=== PATIENT | male | born 1960 | race Caucasian/White ===

== ENCOUNTER → 2019-12-20 13:11 | Outpatient (BNVA) | payer MEDICAID, SELFPAY | PROVIDERS: Visit Provider Specialist | DX: M79.7 Fibromyalgia (principal); R29.90 Unspecified symptoms and signs involving the nervous system; M47.817 Spondylosis without myelopathy or radiculopathy, lumbosacral region | CPT/HCPCS: 20610; 99214; J1030; J3490 ==

== ENCOUNTER 2020-01-11 14:31 | Outpatient (CLI) | payer MEDICAID, SELFPAY ==
--- NOTE | 2020-01-11 16:00 | CT_ITS ---
WS: [id number] CT LUMBAR SPINE, noncontrast. HISTORY: back pain TECHNIQUE: Contiguous 2.5 mm axial imaging are performed. Sagittal and coronal reformats are submitte d and reviewed. All CT scans at [facility] use at least one of these dose optimization te chniques: automated exposure control; mA and/or kV adjustment per patient size (includes targeted exa ms where dose is matched to clinical indication); or iterative reconstruction. IV contrast: None DLP: 1914.08 mGycm COMPARISON: None available. Slight increase in lumbar lordosis. Endplate osteophytes throughout the lumbar spine. No pars defects . No fractures. Stable endplate sclerosis involving L1 and S1. L1-2: Normal. L2-3: Mild annular disc bulging without significant stenosis. L3-4: Diffuse annular disc bulging and facet arthropathy. Mild central and bilateral foraminal stenos is. L4-5: Mild annular disc bulging and facet arthropathy. Mild central and subarticular recess and miquel inal narrowing. L5-S1: Broad-based disc bulging without significant stenosis. Scattered calcifications within the abdominal aorta. No aneurysm. Mild bilateral sclerosis along the SI joints, RIGHT greater than LEFT. There is some very mild irregu larity along the sacral side of the RIGHT SI joint. No definite erosions. CT/CT lumbar spine wo con* [id number] IMPRESSION: 1. Multilevel mild spondylosis. No significant lumbar spine stenosis. 2. Mild central and bilateral foraminal stenosis at L3-4 and L4-5. 3. Mild bilateral sacroiliitis, RIGHT greater than LEFT.
== END 2020-01-11 14:32 | disposition home or self-care (01) ==
LOC: RADWPI 14:36
PROVIDERS: Visit Provider Specialist
DX: M47.817 Spondylosis without myelopathy or radiculopathy, lumbosacral region (principal); M47.896 Other spondylosis, lumbar region; M48.061 Spinal stenosis, lumbar region without neurogenic claudication; M46.1 Sacroiliitis, not elsewhere classified
CPT/HCPCS: 72131

== ENCOUNTER → 2020-01-19 10:24 | Outpatient (BNVA) | payer MEDICAID, SELFPAY | PROVIDERS: Visit Provider Nurse Practitioner | DX: F31.81 Bipolar II disorder (principal) | CPT/HCPCS: 99213 ==

== ENCOUNTER → 2020-01-26 11:55 | Outpatient (BNVA) | payer MEDICAID, SELFPAY | PROVIDERS: Visit Provider Nurse Practitioner Family | DX: E11.9 Type 2 diabetes mellitus without complications (principal); M25.511 Pain in right shoulder; M25.512 Pain in left shoulder; I10 Essential (primary) hypertension | CPT/HCPCS: 80053; 80061; 82044; 83036; 85025 ==

== ENCOUNTER → 2020-02-15 10:31 | Outpatient (BNVA) | payer MEDICAID, SELFPAY | PROVIDERS: Visit Provider Specialist | DX: M25.511 Pain in right shoulder (principal); M19.011 Primary osteoarthritis, right shoulder; M77.9 Enthesopathy, unspecified; Z87.81 Personal history of (healed) traumatic fracture | CPT/HCPCS: 73030 ==

== ENCOUNTER 2020-02-25 08:19 | Outpatient (CLI) | payer MEDICAID, SELFPAY ==
--- NOTE | 2020-02-25 08:50 | CT_ITS ---
WS: [id number] INDICATION: Right shoulder pain TECHNIQUE: CT shoulder arthrogram FINDINGS: Hypertrophic changes at the AC joint. Mild downsloping of the acromion. Subacromial spurrin g. Evidence of prior postoperative changes involving the distal clavicle. High-grade undersurface par tial-thickness tear involving the supraspinatus insertion measuring 9 mm on the sagittal imaging. Thi s is approximately 8 mm from the distal insertion. No tendon retraction. Infraspinatus is intact. Nor mal teres minor. Additional linear intrasubstance tear involving the distal subscapularis tendon. Nor mal biceps tendon in the bicipital groove. Glenoid labrum appears grossly intact. Sublabral recess. Normal biceps labral complex. Normal middle glenohumeral joint. Normal posterior labrum. Degenerative arthritis glenohumeral joint with evidence of prior Hill-Sachs deformity. Right lung is well aerated. CT/CT shoulder RT w con [id number] IMPRESSION: 1. Moderate degenerative arthritis at the AC joint with prior postoperative ch anges distal clavicle. Mild downsloping of the acromion with undersurface spurr ing. 2. High-grade undersurface tear involving the distal supraspinatus just proxim al to the insertion and measuring 9 mm. 3. Partial intrasubstance tear involving the distal subscapularis which remain s intact. 4. Normal biceps tendon in the bicipital groove. 5. Hill-Sachs deformity.
--- NOTE | 2020-02-25 08:55 | IR_ITS ---
WS: [id number] SHOULDER ARTHROGRAM RIGHT Fluoroscopic guided right shoulder arthrogram CLINICAL INFORMATION: SHOULDER PAIN/ROTATOR CUFF TEAR COMPARISON: None. PROCEDURE: The procedure including risks, benefits and complications were discussed with the patient, who agreed to proceed. Using sterile technique, the patient was prepped and draped in the usual ster ile fashion. After 1% lidocaine injection using fluoroscopic guidance, a 22-gauge spinal needle was a dvanced into the glenohumeral joint. Approximately 13 ml of a solution containing 10 cc Omnipaque 300 and 10 ml 1% lidocaine was administered. No immediate complications. FLUOROSCOPY TIME: 0.4 minutes. IR/IR arthrogram shoulderRT [id number] IMPRESSION: Uncomplicated fluoroscopic-guided right shoulder arthrogram. CT to follow
[2020-02-25] MEDS: iohexol 300 mg/mL 50 mL Btl INTRA-ARTI (09:35)
== END 2020-02-25 08:20 | disposition home or self-care (01) ==
LOC: RADWPI 08:24
PROVIDERS: Visit Provider Specialist
DX: M75.101 Unspecified rotator cuff tear or rupture of right shoulder, not specified as traumatic (principal); M25.511 Pain in right shoulder; M19.011 Primary osteoarthritis, right shoulder; M21.821 Other specified acquired deformities of right upper arm
CPT/HCPCS: 23350; 73201; 77002; Q9967

== ENCOUNTER 2020-03-29 15:30 | Observation (INO) | payer MEDICAID, SELFPAY ==
[2020-03-28 08:24] VITALS: BMI 43.2
[2020-03-29] VITALS (9 sets, daily range): BP systolic 133–160; BP diastolic 82–94; PULSE 62–87; RESP 17–23; TEMP 36.2–36.9; O2SAT 92–97
--- NOTE | 2020-03-29 | SC_ITS ---
NOTE: Report was unsigned for reason: Order was edited. Original Signature date and time was: [id number] WS: [id number] INTRAOPERATIVE TECHNIQUE: 2 Spot fluoroscopic images for intraoperative purposes. FLUOROSCOPY TIME: 43.9 seconds CLINICAL INFORMATION: LEAD EXCHANGE COMPARISON: None. FINDINGS: Intraoperative images for cardiac pacer lead exchange. MTD SC/C-arm FL for CVA [id number] IMPRESSION: Images obtained for intraoperative purposes.
--- NOTE | 2020-03-29 | SCC_ITS ---
Procedure Done: AICD lead replacement 43.9 seconds of fluoroscopic guidance, for a cumulative dose of 18.41 mGy, was provided to Dr. Alonzo by the radiology department. C-arm images of the chest were saved for the patient's permanent record. [facility]
--- NOTE | 2020-03-29 11:31 | ANES.PREANE2 ---
Pre-Anesthetic Assessment Pre-Anesthetic Assessment: Height/Weight: Height 1.65 m Weight 117.934 kg Preop Diagnosis: Pacemaker malfunction Proposed Procedure: Operation Date: 03/29/20 13:50 Proposed Procedures p Defibrillator Revision(Not Applicable) - Isaias Alonzo MD Familial anesthetic complications: None Was Beta Radha taken within 24 hours: N/A Last intake: NPO > 8 hrs Social: Social History: No alcohol and No tobacco Comment: former smoker Exam: Pre-Anes Outpt Exam: alert, oriented x 3, clear to auscultation bilaterally and regular rate & rhythm Airway: Cervical ROM: WNL MP: 4 Dentition: Full Additional comments: large neck and tongue CV/HEM: CV/HEM: HTN Comments: EF 24% on echo in 2016 with diffuse hypokinesis nonischemic cardiomyopathy ICD/pacer w/ RV lead dysfunction GI: GI: GERD Metabolic: Metabolic: DM, Hyperlipidemia and Morbid obesity Anesthetic Plan: ASA status: 4 Anesthesia: Nurse-admin mod sedation Risk of > 500 ml blood loss (7ml/kg in children): No PFSH Anesthesia PFSH: Medical History Bipolar II disorder Cardiomyopathy Diabetes Hypertension Mixed hyperlipidemia Pacemaker Pacemaker malfunction Family History Other CAD (coronary artery disease) Diabetes Hypertension Denies family history of Cancer Stroke Social History Smoking and tobacco status: former smoker Quit status (tobacco): has quit using tobacco Year quit tobacco: 1999 Alcohol intake: former Year of sobriety/quit date alcohol: 1997 Lives independently: Yes Household members: spouse Marital status: Current occupational status: disabled History of recent travel: No Current gender identity: Male Special fernando needs: No Agree to transfusion: Yes Data Anesthesia CBC & Chem 7: 03/29/20 12:46 03/29/20 12:46 Cardiac Studies: No Data to Display
--- NOTE | 2020-03-29 12:35 | W.PM.OPSUD ---
Surgery/Procedure H&P Update DATE OF PROCEDURE: March 29, 2020 DATE H&P PERFORMED: 03/21/20 H&P UPDATE INFORMATION: I have reviewed H&P completed within last 30 days, I have examined patient prior to procedure and No changes to prior documentation CHANGES TO PREVIOUS DOCUMENTATION: I carefully discussed with Mr. Alexander the recommendation to place a new right ventricular lead and it Is only. Risk of lead replacement carefully discussed including pneumothorax, major bleeding, cardiac or major vessel perforation, injury to the other leads, infection, early dislodgment of the lead, need for long-term follow-up, and pain from the procedure. He states understanding. The recommendation to remain overnight as outpatient in a bed to allow for social media campaign manager interrogation of the lead was carefully discussed. At this time, he is not certain he will stay overnight. He does wish to proceed however with lead replacement. PREOP DIAGNOSIS: Malfunctioning ventricular lead implantable cardiac defibrillator PRIMARY INDICATION FOR PROCEDURE: Replacement of malfunctioning lead PLANNED PROCEDURE: Operation Date: 03/29/20 13:50 Proposed Procedures p Defibrillator Revision(Not Applicable) - Isaias Alonzo MD
--- NOTE | 2020-03-29 12:36 | ECG_ITS ---
Measurements Intervals [place] Rate: 61 P: 44 MN: 144 QRS: 167 QRSD: 158 T: -5 QT: 442 QTc: 446 ELECTRONIC VENTRICULAR PACEMAKER ABNORMAL RHYTHM ECG Compared to ECG 03/01/2019 13:19:47 No significant changes Electronically Signed On 03-29-2020 15:43:53 CDT by Joaquin Nayak M.D. [id number]
[2020-03-29 12:57] LABS: Basophils % 0.4 %; Eosinophils # 0.2 10^3/uL (0.0-0.8); Eosinophils % 1.8 %; Hematocrit 40.1 % (42.0-52.0); Hemoglobin 13.8 g/dL (11.7-16.6); Lymphocytes # 2.2 10^3/uL (0.8-4.8); Lymphocytes % 26.2 %; Mean Corpuscular HGB Conc 34.4 g/dL (30.0-36.0); Mean Corpuscular Hemoglobin 31.5 pg (28.0-34.0); Mean Corpuscular Volume 91.6 fL (80-94); Mean Platelet Volume 10.6 fL (7.4-10.4); Monocytes # 0.5 10^3/uL (0.2-0.9); Monocytes % 6.2 %; Neutrophils # 5.5 10^3/uL (1.8-7.7); Neutrophils % 64.9 %; Nucleated Red Blood Cells % 0 %; Platelet Count 208 10^3/cmm (130-400); Red Blood Count 4.38 10^6/uL (4.1-5.3); White Blood Count 8.5 10^3/uL (4.0-10.0)
[2020-03-29 13:07] LABS: INR 0.99 (0.8-1.2)
[2020-03-29 13:13] LABS: Anion Gap 15.4 (5-19); Blood Urea Nitrogen 13 mg/dL (6-20); Calcium 8.9 mg/dL (8.5-10.5); Carbon Dioxide 24 mmol/L (22-29); Chloride 104 mmol/L (98-107); Glomerular Filtration Rate 98.9 mL/min (90-130); Glucose 140 mg/dL (65-115); Osmolality Calculated 286 mOsm/kg (285-295); Potassium 4.4 mmol/L (3.5-5.1); Sodium 139 mmol/L (136-145)
[2020-03-29] MEDS: vancomycin 1,000 MG in sodium chloride 0.9% 250 ML 250 MG IV (13:30)
[2020-03-29] MEDS: lidocaine 1% INJ 20 mL INJECTION (13:50)
[2020-03-29 14:03] LABS: Glucose Point of Care 128 mg/dL (70-110)
--- NOTE | 2020-03-29 15:01 | PM.OP ---
Operative Report Date of procedure: March 29, 2020 Pre-op Diagnosis: Pacemaker malfunction Post-op diagnosis: same Procedure Done: AICD lead replacement Pathology: none sent Surgeon: Isaias Alonzo Anesthesia: MAC and Local (10 cc 1% lidocaine) Estimated blood loss (mL): 25 Complications: None: Post procedure chest x-ray pending Condition: stable Disposition: floor (Outpatient in a bed) Brief History: Mr. Alexander is a 59-year-old gentleman with longstanding cardiomyopathy and prior AICD implantation in 2006. He has had his generator changed at least once and has a recalled lead which has now failed. This is the RV lead. Dr. Holder has recommended that this lead to be replaced. Details risk procedure were carefully and frankly discussed Mr. Alexander. Appropriate consents have been reviewed and signed. Procedure: Mr. Wilkins was taken operating room underwent IV conscious sedation anesthesia monitoring after he was carefully positioned over protective padding. His entire left chest was sterilely prepped and draped. After appropriate timeout, 1% lidocaine was infiltrated through an old surgical scar at the superior border of the palpable AICD generator. #10 scalpel is utilized to incise the skin down to the subtendinous layer with #15 scalpel blade was utilized to continue on down toward the pseudo-pocket. This was carefully dissected free utilizing Metzenbaum scissors to avoid any path of prior leads. #15 scalpel blade was utilized to open up the pseudo-capsule thereby exposing the generator associated leads which was then recovered from the pocket. Short resection Metzenbaum scissors were performed to release adhesions around the generator head to help free up provide some motion to the attached leads. Once this was done, while in Trendelenburg position utilizing modified Seldinger technique, access to the left subclavian vein was obtained and a guidewire was placed under fluoroscopic guidance. Tract was then dilated and subsequently a tear-away sheath was also placed over the guidewire under fluoroscopic guidance. Next, the new RV lead was advanced through the tear-away sheath with a curved stylette in position and utilizing fluoroscopy was placed into the RV. Associated PVCs were noted. Securing screw was advanced. Interrogation was then performed with and without the stylette in position that revealed good sensing and capture thresholds. Next, the lead was sewn to the floor of the pocket utilizing silk suture over the retention collar. Following this, the associated leads were removed and pin caps placed. Active bleeding ends were covered with securing caps. The new lead was then placed to the appropriate positions and second set screws advanced securing it to the AICD. With all this, the wound was irrigated. The generator associated leads were placed back into the pocket of the pseudocapsule. A bit of undermining was performed superiorly to allow for tension-free closure. Wound was then closed in 2 layers of 2-0 Vicryl suture. Skin was reapproximated with 3-0 Monocryl suture in a septic or manner. Skin adhesive was applied followed by placement of a light pressure dressing. Patient's left arm was placed in an immobilizer. Reinterrogation after the system was implanted was then performed. Mr. Alexander tolerated procedure well was awakened from IV conscious sedation and taken to the outpatient surgery department awaiting availability of a floor bed for observation overnight as outpatient in a bed status. Family was counseled. Chest x-ray is currently pending. There are equal breath sounds bilaterally. Right atrial lead sensing is 1.9 with an impedance of 399 ohms and a threshold of 0.5. RV lead has a sensing of 10.8 with an impedance of 418 ohms and a threshold of 0.5. LV lead has an impedance of 418 ohms with a threshold of 0.75
--- NOTE | 2020-03-29 15:17 | SUR.PHASEI ---
1512 PATIENT TO PACU FROM OR. NO DISTRESS. RESPONDS TO VERBAL STIMULI. PRESSURE DRESSING IN PLACE TO LEFT CHEST, LEFT ARM SLING IN PLACE. PATIENT DENIES PAIN.
--- NOTE | 2020-03-29 15:26 | XR_ITS ---
WS: [id number] CHEST XRAY TECHNIQUE: Portable chest. CLINICAL INFORMATION: POST DEF LEAD EXCHANGE COMPARISON: None. FINDINGS: Heart: Cardiomegaly. Cardiac pacer with lead exchange. Lungs: Chronic emphysematous changes. No acute pulmonary infiltrates. No pneumothorax. Bones: Mild thoracic curve. Hypertrophic changes thoracic spine. XR/XR chest 1V portable [id number] IMPRESSION: Cardiomegaly. No acute chest findings.
--- NOTE | 2020-03-29 15:37 | SUR.PHASEI ---
1530 PATIENT TO CSU VIA GURNEY. DENIES PAIN. DRESSING TO LEFT CHEST, CDI. SHOULDER IMMOBILIZER IN PLACE. PATIENT AMBULATORY FROM GURNEY TO BED WHEN ARRIVING TO CSU.
[2020-03-29 17:32] LABS: Glucose Point of Care 224 mg/dL (70-110)
[2020-03-29] MEDS: sodium chloride 0.9% 1,000 ML 75 ML IV (17:50)
[2020-03-29] MEDS: oxyCODONE-APAP 5-325 mg Tablet 1 TAB PO (18:57)
[2020-03-29] MEDS: clindamycin 900 MG/50 ML PREMIX 100 MG IV (21:36)
[2020-03-30] VITALS (8 sets, daily range): BP systolic 145–160; BP diastolic 79–92; PULSE 60–89; RESP 15–17; TEMP 36.5–36.8; O2SAT 94–98
[2020-03-30] MEDS: oxyCODONE-APAP 5-325 mg Tablet 1 TAB PO (04:38)
[2020-03-30] MEDS: sodium chloride 0.9% 1,000 ML 75 ML IV (04:39)
[2020-03-30] MEDS: clindamycin 900 MG/50 ML PREMIX 100 MG IV (04:39)
--- NOTE | 2020-03-30 05:30 | PC.NURSE ---
Rounded with Dr. Smith. Watched him changed pacemaker dressing.
--- NOTE | 2020-03-30 05:41 | P.DS_ITS ---
Discharge Providers Date of Admission: 03/29/20 15:30 Date of Discharge: March 30, 2020 Attending Provider at Admission: Isaias Alonzo MD Attending Provider at Discharge: Isaias Alonzo MD Primary Care Provider: ANDRES Pettit Diagnoses at Discharge Discharge Diagnosis (1) Pacemaker malfunction: Status: Acute Qualifiers: Encounter type: initial encounter Qualified Code(s): T82.111A - Breakdown (mechanical) of cardiac pulse generator (battery), initial encounter Reason for Visit Reason for Visit: Reason For Visit: Cardiomyopathy Hospital Course Discharge Summary: Mr. Alexander was electively admitted for planned replacement of his malfunctioning RV lead from his AICD. He underwent lead replacement yesterday March 29 without apparent difficulties. Post procedure system interrogation revealed good function. He convalesced overnight in the cardiac stepdown unit where he received parenteral antibiotics. Incision is clean and dry this morning. No substantial swelling. AICD will be again interrogated prior to discharge. Post procedure chest x-ray this morning is clear. No apparent lead migration. He will follow-up in heart care services in 1 week. At the time of discharge he is in stable condition. Physical Exam Chest: COMMONS NORMALS: normal inspection of the chest (Surgical incision is clean and dry. No evidence for substantial fluid collection. No evidence for infection.) Resp: COMMON NORMALS: normal respiratory effort and clear to auscultation bilaterally AUSCULTATION: clear to auscultation bilaterally Discharge Data Data Completed and Pending: Completed Studies During Hospitalization Category Date Time Status XR chest 1V rudolph ble [id number] Routine Exams 03/29/20 15:26 Completed Pending at discharge Category Date Time Status XR chest 1V [id number] Routine Exams 03/30/20 06:00 Taken Labs from last 24 hours 03/29/20 03/29/20 03/29/20 17:26 12:47 12:46 WBC RBC Hgb Hct MCV MCH MCHC RDW Plt Count MPV Neut % (Auto) Lymph % (Auto) [place] % (Auto) Eos % (Auto) Baso % (Auto) Neut # (Auto) Lymph # (Auto) [place] # (Auto) Eos # (Auto) Baso # (Auto) Nucleated RBC % (a uto) Nucleated RBCs # PT INR Sodium Potassium Chloride Carbon Dioxide Anion Gap BUN Creatinine GFR Calculation Glucose POC Glucose 224 128 Calculated Osmolal ity Calcium Blood Type B Positive Rho(D) Type Positive Antibody Screen Negative 03/29/20 03/29/20 03/29/20 12:46 12:46 12:44 WBC 8.5 RBC 4.38 Hgb 13.8 Hct 40.1 L MCV 91.6 MCH 31.5 MCHC 34.4 RDW 13.0 Plt Count 208 MPV 10.6 H Neut % (Auto) 64.9 Lymph % (Auto) 26.2 [place] % (Auto) 6.2 Eos % (Auto) 1.8 Baso % (Auto) 0.4 Neut # (Auto) 5.5 Lymph # (Auto) 2.2 [place] # (Auto) 0.5 Eos # (Auto) 0.2 Baso # (Auto) 0.0 Nucleated RBC % (a uto) 0 Nucleated RBCs # 0.0 PT 13.30 INR 0.99 Sodium 139 Potassium 4.4 Chloride 104 Carbon Dioxide 24 Anion Gap 15.4 BUN 13 Creatinine 0.8 GFR Calculation 98.9 Glucose 140 H POC Glucose Calculated Osmolal ity 286 Calcium 8.9 Blood Type Rho(D) Type Antibody Screen Vitals: Last Vital Signs Temp 98.2 F 03/30/20 04:46 Pulse 63 03/30/20 04:46 Resp 17 03/30/20 04:46 BP 149/82 03/30/20 04:46 Pulse Ox 94 03/30/20 04:46 Discharge Plan Discharge Patient Disposition: Home, Self-Care Condition: Stable Prescriptions: New [place]ora 5-325 mg tablet 1 tab PO Q6H PRN (Reason: pain) Qty: 12 RF: 0 Continued omeprazole 40 mg capsule,delayed release(DR/EC) 40 mg PO DAILY RF: 0 rosuvastatin [Crestor] 20 mg tablet 20 mg PO DAILY RF: 0 Invokana 300 mg tablet 300 mg PO DAILY RF: 0 aspirin [Aspir-Sagrario] 325 mg tablet,delayed release (DR/EC) 325 mg PO DAILY RF: 0 multivitamin Capsule 1 cap PO DAILY RF: 0 lamotrigine 200 mg tablet 200 mg PO DAILY Qty: 30 RF: 2 sertraline 100 mg tablet 150 mg PO DAILY Qty: 45 RF: 2 clonazepam 0.5 mg tablet 0.5 mg PO DAILY PRN (Reason: anxiety) Qty: 30 RF: 2 albuterol sulfate [ProAir HFA] 90 mcg/actuation HFA aerosol inhaler 2 puff INHALATION Q6H PRN (Reason: shortness of breath or wheezing) Qty: 18 RF: 2 fluticasone propionate [Flonase Allergy Relief] 50 mcg/actuation spray,suspension 2 spray INTRANASAL DAILY Qty: 9.9 RF: 2 Zyrtec 10 mg capsule 10 mg PO DAILY Qty: 30 RF: 5 glipizide 5 mg tablet extended release 24hr 5 mg PO DAILY Qty: 30 RF: 2 fenofibrate 160 mg tablet 160 mg PO DAILY Qty: 30 RF: 2 allopurinol 300 mg tablet 300 mg PO DAILY Qty: 90 RF: 12 carvedilol 25 mg tablet 25 mg PO BID Qty: 180 RF: 3 metformin 500 mg tablet 1,000 mg PO BID Qty: 120 RF: 0 losartan 100 mg tablet 100 mg PO DAILY Qty: 90 RF: 3 spironolactone 25 mg tablet 25 mg PO DAILY Qty: 90 RF: 3 potassium citrate 10 mEq (1,080 mg) tablet extended release 20 meq PO BID RF: 0 ibuprofen 800 mg tablet 800 mg PO BID PRN (Reason: Pain) RF: 0 Discharge Orders: Discharge Order (Routine); Ordered 03/30/20 Ordered By: Isaias Alonzo Referrals: [facility] [Provider Group] - 04/07/20 (Pacemaker clinic) Discharge Diet: Usual diet Discharge Activity: Limit activity as instructed Activity Restrictions/Additional Instructions: No swimming or tub baths x2 weeks May begin daily showers on Friday No reaching above eye level with left arm for 1 week No heavy pulling or tugging or pushing with left arm x2 weeks Report any redness, swelling, increasing pain, or drainage from incision Discharge Attestations Time Spent in Discharge Care*: less than 30 min Specific Discharge Activities: Specific discharge activities: educating patient, discussing with case resolution specialist/social workers/dc planners, documenting/other paperwork and evaluating patient/reviewing data Status at Discharge: Cognitive status at discharge: cognitively intact , Behavioral status at discharge: cooperative , Functional status at discharge: independent ambulation Overall status at discharge: patient is back to baseline Quality Metrics Clinical Quality Measures During this hospital stay, did patient experience: None Coding Level of Care Code [facility] [employer] 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
--- NOTE | 2020-03-30 06:00 | ECG_ITS ---
Measurements Intervals [place] Rate: 64 P: 52 NH: 154 QRS: 148 QRSD: 157 T: -60 QT: 452 QTc: 467 ELECTRONIC VENTRICULAR PACEMAKER ABNORMAL RHYTHM ECG Compared to ECG 03/29/2020 12:55:03 No significant changes Electronically Signed On 03-31-2020 18:42:15 CDT by Felicity Haro M.D. [email or web address]
--- NOTE | 2020-03-30 06:00 | XR_ITS ---
WS: [id number] CHEST XRAY TECHNIQUE: Portable chest. CLINICAL INFORMATION: Post permanent pacemaker placement; visualize lead tip COMPARISON: March 29, 2020 FINDINGS: Heart: Cardiomegaly. AICD. Lungs: Chronic emphysematous changes. No acute pulmonary infiltrates. No focal pneumonia. Bones: Normal visualized bony structures. XR/XR chest 1V [id number] IMPRESSION: 1. Cardiomegaly with AICD. No pneumothorax. 2. No acute pulmonary infiltrates.
[2020-03-30] MEDS: losartan 50 mg Tablet 100 MG PO (08:26)
[2020-03-30] MEDS: allopurinol 300 mg Tablet PO (08:27)
[2020-03-30] MEDS: metformin 500 mg Tablet 1000 MG PO (08:27)
[2020-03-30] MEDS: spironolactone 25 mg Tablet PO (08:27)
[2020-03-30] MEDS: carvedilol 25 mg Tablet PO (08:27)
[2020-03-30] MEDS: sertraline 100 mg Tablet 150 MG PO (08:27)
== END 2020-03-30 08:59 | disposition home or self-care (01) ==
LOC: CSU 03-30 05:40 → OR 03-30 07:40
PROVIDERS: Anesthesiology; Admitting Provider Thoracic Surgery (Cardiothoracic Vascular Surgery); PCP Nurse Practitioner Family; Visit Provider Thoracic Surgery (Cardiothoracic Vascular Surgery)
PROC: 0JWT0PZ Revision of Cardiac Rhythm Related Device in Trunk Subcutaneous Tissue and Fascia, Open Approach (ICD-10-PCS; CPT 33263; principal; 2020-03-29 13:50)
DX: T82.111A Breakdown (mechanical) of cardiac pulse generator (battery), initial encounter (principal); Z79.82 Long term (current) use of aspirin; I10 Essential (primary) hypertension; E11.9 Type 2 diabetes mellitus without complications; Z79.84 Long term (current) use of oral hypoglycemic drugs; E66.01 Morbid (severe) obesity due to excess calories; Z68.41 Body mass index [BMI] 40.0-44.9, adult; E78.2 Mixed hyperlipidemia
CPT/HCPCS: 33263; 12345; 36415; 36416; 71045; 76000; 77001; 80048; 82962; 85025; 85610; 86850; 86900; 93005; 94660; 96361; 96365; 96366; C1777; G0378; J2001; J2250; J2704; J3010; J3370; J3490; J7030; J7050

== ENCOUNTER → 2020-04-12 07:49 | Outpatient (BNVA) | payer MEDICAID, SELFPAY | PROVIDERS: PCP Nurse Practitioner Family; Visit Provider Nurse Practitioner | DX: F31.81 Bipolar II disorder (principal) | CPT/HCPCS: 99213 ==

== ENCOUNTER → 2020-04-18 14:28 | Outpatient (BNVA) | payer MEDICAID, SELFPAY | PROVIDERS: PCP Nurse Practitioner Family; Visit Provider Nurse Practitioner Family | DX: Z95.0 Presence of cardiac pacemaker (principal); T81.49XA Infection following a procedure, other surgical site, initial encounter; X58.XXXA Exposure to other specified factors, initial encounter | CPT/HCPCS: 36415; 85025; 87040 ==

== ENCOUNTER 2020-04-22 17:14 | Emergency (ER) | payer MEDICAID, SELFPAY ==
[2020-04-22 17:22] VITALS: BP 149/75; PULSE 83; RESP 18; TEMP 35.9; O2SAT 95; BMI 43.2
--- NOTE | 2020-04-22 17:35 | ECG_ITS ---
Measurements Intervals [place] Rate: 77 P: 54 MT: 159 QRS: 126 QRSD: 146 T: -16 QT: 397 QTc: 450 ELECTRONIC VENTRICULAR PACEMAKER ABNORMAL RHYTHM ECG Compared to ECG 03/30/2020 06:20:20 No significant changes Electronically Signed On 04-23-2020 21:08:29 CDT by Joe Holder M.D. [id number]
--- NOTE | 2020-04-22 17:36 | W.ED.GENADLT ---
Documented by User: Andre Olvera DO 04/28/20 17:43 HPI - General Adult General: Chief complaint: General Medical Stated complaint: pace maker firing Time Seen by Provider: 04/22/20 17:27 History of Present Illness: HPI narrative: 59-year-old male comes in today complaining of his pacer alarming every 4 hours. He is an ICD. Is not discharge at all. 3 weeks ago he had a loose alleviator repaired by Dr. Alonzo he developed a little swelling afterwards Dr. Alonzo seen recently drained some fluid off and put him on some antibiotics. This morning at 3 AM began to be up every 4 hours he denies any chest pain or shortness of breath fever sweats or chills. Onset (ago): hour(s) (15) Relieving factors: none Exacerbating factors: none Associated symptoms: Deny chest pain, dyspnea, malaise, nausea, rash or vomiting Review of Systems Const: Denies: fever(s), chills, body aches, change in appetite, fatigue or malaise ENMT: Denies: throat pain, ear or mastoid pain, nasal discharge or nasal congestion Card: Denies: chest pain, edema, dyspnea on exertion or orthopnea Resp: Denies: dyspnea, productive cough or non-productive cough GI: Denies: abdominal pain, nausea, vomiting, hematemesis, coffee ground emesis, diarrhea, constipation, bloating, hematochezia or melena : Denies: flank pain, dysuria, urinary frequency or urinary urgency Skin/Breast: Denies: rash or pruritus PFSH ED PFSH: Medical History Bipolar II disorder Cardiomyopathy Diabetes Hypertension Mixed hyperlipidemia Pacemaker Pacemaker malfunction Family History Other CAD (coronary artery disease) Diabetes Hypertension Denies family history of Cancer Stroke Social History Smoking and tobacco status: former smoker Quit status (tobacco): has quit using tobacco Year quit tobacco: 1999 Alcohol intake: former Year of sobriety/quit date alcohol: 1997 Lives independently: Yes Household members: spouse Marital status: Current occupational status: disabled History of recent travel: No Current gender identity: Male Special fernando needs: No Agree to transfusion: Yes Physical Exam Const: COMMON NORMALS: no acute distress GENERAL APPEARANCE: cooperative and comfortable ORIENTATION/CONSCIOUSNESS: Yes awake, Yes oriented to person, Yes oriented to place and Yes oriented to time HENMT: COMMON NORMALS: normocephalic, atraumatic, hearing grossly normal bilaterally, external ears normal, EAC's normal, TM's normal bilaterally, Normal nasal mucous membranes and turbinates present, moist oral mucous membranes and oropharynx normal HEAD & SCALP: normocephalic and atraumatic NOSE: Normal nasal mucous membranes and turbinates present EXTERNAL EAR: Yes external ears normal EXTERNAL AUDITORY CANAL: EAC's normal TYMPANIC MEMBRANE: TM's normal bilaterally Eye: COMMON NORMALS: Equal, round and reactive pupils present, EOMs intact bilaterally, conjunctivae normal and no scleral icterus CONJUNCTIVA: Yes conjunctivae normal PUPIL: Yes Equal, round and reactive pupils present Neck/C-Spine: COMMON NORMALS: full ROM, no lymphadenopathy, supple and no JVD Lymph: LYMPHATIC: no lymphadenopathy noted and no lymphedema noted Chest: OTHER: Fluctuant swelling over the pacer in the left infraclavicular space mildly warm to the touch no drainage Resp: COMMON NORMALS: normal respiratory effort, No retractions, No use of accessory muscles and clear to auscultation bilaterally AUSCULTATION: clear to auscultation bilaterally Cardio: COMMON NORMALS: no JVD, regular rate, regular rhythm and No murmurs present (Cardio) RATE: regular rate RHYTHM: regular rhythm GI: COMMON NORMALS: Soft to palpation and No hepatosplenomegaly present AUSCULTATION: Yes normoactive bowel sounds PALPATION: Yes Soft to palpation, No Tenderness to palpation present (GI), No Guarding due to palpation present (GI) and Yes No hepatosplenomegaly present Extremity: COMMON NORMALS: normal to inspection, capillary refill normal, no clubbing, cyanosis or edema, no calf tenderness and no pedal edema Neuro: SENSORIUM/ORIENTATION: Yes oriented to person, Yes oriented to place and Yes oriented to time Skin: COMMON NORMALS: no rashes or lesions noted GENERAL SKIN EXAM: no rashes or lesions noted Course Vital Signs: Vital signs: Vital Signs Temperature 96.6 F L 04/22/20 17:22 Pulse Rate 70 04/22/20 18:27 Respiratory Rate 16 04/22/20 18:27 Blood Pressure 125/75 04/22/20 18:27 Pulse Oximetry 96 04/22/20 18:27 MDM - General Adult MDM Narrative: Medical decision making narrative: Care turned over to Dr. Staley at change of shift see his note for definitive diagnosis and disposition Discharge Plan Discharge Patient Disposition: Home, Self-Care Clinical Impression: Pacemaker Condition: Stable Prescriptions: No Action omeprazole 40 mg capsule,delayed release(DR/EC) 40 mg PO DAILY RF: 0 Invokana 300 mg tablet 300 mg PO DAILY RF: 0 aspirin [Aspir-Sagrario] 325 mg tablet,delayed release (DR/EC) 325 mg PO DAILY RF: 0 multivitamin Capsule 1 cap PO DAILY RF: 0 clonazepam 0.5 mg tablet 0.5 mg PO DAILY PRN (Reason: anxiety) Qty: 30 RF: 2 sertraline 100 mg tablet 150 mg PO DAILY Qty: 45 RF: 2 lamotrigine 200 mg tablet 200 mg PO DAILY Qty: 30 RF: 2 sulfamethoxazole-trimethoprim [Bactrim DS] 800-160 mg tablet 1 tab PO BID 10 Days Qty: 20 RF: 0 levofloxacin [Levaquin] 500 mg tablet 500 mg PO DAILY Qty: 10 RF: 0 metformin 1,000 mg tablet 1,000 mg PO BID Qty: 60 RF: 3 rosuvastatin [Crestor] 20 mg tablet 20 mg PO DAILY Qty: 30 RF: 3 albuterol sulfate [ProAir HFA] 90 mcg/actuation HFA aerosol inhaler 2 puff INHALATION Q6H PRN (Reason: shortness of breath or wheezing) Qty: 18 RF: 2 fluticasone propionate [Flonase Allergy Relief] 50 mcg/actuation spray,suspension 2 spray INTRANASAL DAILY Qty: 9.9 RF: 2 furosemide [Lasix] 20 mg tablet 20 mg PO DAILY Qty: 30 RF: 1 Zyrtec 10 mg capsule 10 mg PO DAILY Qty: 30 RF: 5 glipizide 5 mg tablet extended release 24hr 5 mg PO DAILY Qty: 30 RF: 2 fenofibrate 160 mg tablet 160 mg PO DAILY Qty: 30 RF: 2 allopurinol 300 mg tablet 300 mg PO DAILY Qty: 90 RF: 12 carvedilol 25 mg tablet 25 mg PO BID Qty: 180 RF: 3 losartan 100 mg tablet 100 mg PO DAILY Qty: 90 RF: 3 spironolactone 25 mg tablet 25 mg PO DAILY Qty: 90 RF: 3 potassium citrate 10 mEq (1,080 mg) tablet extended release 20 meq PO BID RF: 0 ibuprofen 800 mg tablet 800 mg PO BID PRN (Reason: Pain) RF: 0 Crescent 5-325 mg tablet 1 tab PO Q6H PRN (Reason: pain) Qty: 12 RF: 0 Discharge Orders: Discharge Order (Routine); Ordered 04/22/20 Ordered By: Andrei Staley Referrals: Lucrecia Blandon FNP [Primary Care Provider] - Discharge Diet: Usual diet Discharge Activity: Increase activity as tolerated Patient Instructions: Pacemaker (GEN) Activity Restrictions/Additional Instructions: Your pacemaker device was alarming because it is not connecting appropriately with your home device. When you get home and near your device, call . The company will walk you through how to rectify the alarm with your home machine. Discharge Date/Time: 04/22/20 18:27 Coding Level of Care Code ED Irrigator Sprinkling System for Chg Fwd Exam Comprehensive Documented by User: Andrei Staley DO 04/23/20 03:11 HPI - General Adult General: Chief complaint: General Medical Stated complaint: pace maker firing Time Seen by Provider: 04/22/20 17:27 PFSH ED PFSH: Medical History Bipolar II disorder Cardiomyopathy Diabetes Hypertension Mixed hyperlipidemia Pacemaker Pacemaker malfunction Family History Other CAD (coronary artery disease) Diabetes Hypertension Denies family history of Cancer Stroke Social History Smoking and tobacco status: former smoker Quit status (tobacco): has quit using tobacco Year quit tobacco: 1999 Alcohol intake: former Year of sobriety/quit date alcohol: 1997 Lives independently: Yes Household members: spouse Marital status: Current occupational status: disabled History of recent travel: No Current gender identity: Male Special fernando needs: No Agree to transfusion: Yes Course Vital Signs: Vital signs: Vital Signs Temperature 96.6 F L 04/22/20 17:22 Pulse Rate 70 04/22/20 18:27 Respiratory Rate 16 04/22/20 18:27 Blood Pressure 125/75 04/22/20 18:27 Pulse Oximetry 96 04/22/20 18:27 MDM - General Adult MDM Narrative: Medical decision making narrative: 59-year-old male checked out to me by Dr. Olvera. He has been having an audible alarm in his pacemaker. Pacemaker was interrogated. The alarm is a false 1. We spoke with the company has to do with the lead wire that was changed. The patient was evidently not close enough to his home machine so it is basically a proximity alarm. The service gave the patient a phone number to call when he gets home and near his machine to rectify the situation. Nothing else to be done. EKGs show appropriate pacer firing Discharge Plan Discharge Patient Disposition: Home, Self-Care Clinical Impression: Pacemaker Condition: Stable Prescriptions: No Action omeprazole 40 mg capsule,delayed release(DR/EC) 40 mg PO DAILY RF: 0 Invokana 300 mg tablet 300 mg PO DAILY RF: 0 aspirin [Aspir-Sagrario] 325 mg tablet,delayed release (DR/EC) 325 mg PO DAILY RF: 0 multivitamin Capsule 1 cap PO DAILY RF: 0 clonazepam 0.5 mg tablet 0.5 mg PO DAILY PRN (Reason: anxiety) Qty: 30 RF: 2 sertraline 100 mg tablet 150 mg PO DAILY Qty: 45 RF: 2 lamotrigine 200 mg tablet 200 mg PO DAILY Qty: 30 RF: 2 sulfamethoxazole-trimethoprim [Bactrim DS] 800-160 mg tablet 1 tab PO BID 10 Days Qty: 20 RF: 0 levofloxacin [Levaquin] 500 mg tablet 500 mg PO DAILY Qty: 10 RF: 0 metformin 1,000 mg tablet 1,000 mg PO BID Qty: 60 RF: 3 rosuvastatin [Crestor] 20 mg tablet 20 mg PO DAILY Qty: 30 RF: 3 albuterol sulfate [ProAir HFA] 90 mcg/actuation HFA aerosol inhaler 2 puff INHALATION Q6H PRN (Reason: shortness of breath or wheezing) Qty: 18 RF: 2 fluticasone propionate [Flonase Allergy Relief] 50 mcg/actuation spray,suspension 2 spray INTRANASAL DAILY Qty: 9.9 RF: 2 furosemide [Lasix] 20 mg tablet 20 mg PO DAILY Qty: 30 RF: 1 Zyrtec 10 mg capsule 10 mg PO DAILY Qty: 30 RF: 5 glipizide 5 mg tablet extended release 24hr 5 mg PO DAILY Qty: 30 RF: 2 fenofibrate 160 mg tablet 160 mg PO DAILY Qty: 30 RF: 2 allopurinol 300 mg tablet 300 mg PO DAILY Qty: 90 RF: 12 carvedilol 25 mg tablet 25 mg PO BID Qty: 180 RF: 3 losartan 100 mg tablet 100 mg PO DAILY Qty: 90 RF: 3 spironolactone 25 mg tablet 25 mg PO DAILY Qty: 90 RF: 3 potassium citrate 10 mEq (1,080 mg) tablet extended release 20 meq PO BID RF: 0 ibuprofen 800 mg tablet 800 mg PO BID PRN (Reason: Pain) RF: 0 Crescent 5-325 mg tablet 1 tab PO Q6H PRN (Reason: pain) Qty: 12 RF: 0 Discharge Orders: Discharge Order (Routine); Ordered 04/22/20 Ordered By: Andrei Staley Referrals: Lucrecia Blandon FNP [Primary Care Provider] - Discharge Diet: Usual diet Discharge Activity: Increase activity as tolerated Patient Instructions: Pacemaker (GEN) Activity Restrictions/Additional Instructions: Your pacemaker device was alarming because it is not connecting appropriately with your home device. When you get home and near your device, call . The company will walk you through how to rectify the alarm with your home machine. Discharge Date/Time: 04/22/20 18:27 Coding Level of Care Code ED Irrigator Sprinkling System for Chg Fwd Exam Comprehensive
--- NOTE | 2020-04-22 17:45 | PC.NURSE ---
EKG done at 1735 and shown to ER doctor
[2020-04-22 18:27] VITALS: BP 125/75; PULSE 70; RESP 16; O2SAT 96
== END 2020-04-22 18:27 | disposition home or self-care (01) ==
PROVIDERS: Emergency Provider Emergency Medicine; PCP Nurse Practitioner Family
DX: T82.9XXA Unspecified complication of cardiac and vascular prosthetic device, implant and graft, initial encounter (principal); Z95.0 Presence of cardiac pacemaker; E11.9 Type 2 diabetes mellitus without complications; I10 Essential (primary) hypertension; E78.2 Mixed hyperlipidemia; Z87.891 Personal history of nicotine dependence
CPT/HCPCS: 12345; 93005; 99281; 99283

== ENCOUNTER → 2020-04-27 09:56 | Outpatient (BNVA) | payer MEDICAID, SELFPAY | PROVIDERS: PCP Nurse Practitioner Family; Visit Provider Thoracic Surgery (Cardiothoracic Vascular Surgery) | DX: T81.49XA Infection following a procedure, other surgical site, initial encounter (principal); Y83.9 Surgical procedure, unspecified as the cause of abnormal reaction of the patient, or of later complication, without mention of misadventure at the time of the procedure | CPT/HCPCS: 84450; 87070; 87075 ==

== ENCOUNTER → 2020-05-10 16:00 | Outpatient (BNVA) | payer MEDICAID, SELFPAY | PROVIDERS: PCP Nurse Practitioner Family; Visit Provider Nurse Practitioner Family | DX: T81.49XA Infection following a procedure, other surgical site, initial encounter (principal); Z95.0 Presence of cardiac pacemaker; Y83.8 Other surgical procedures as the cause of abnormal reaction of the patient, or of later complication, without mention of misadventure at the time of the procedure | CPT/HCPCS: 80053; 85025 ==

== ENCOUNTER 2020-05-11 07:53 | Outpatient (CLI) | payer MEDICAID, SELFPAY | END 2020-05-11 07:54 | disposition home or self-care (01) | LOC: WOUND 07:53 | PROVIDERS: PCP Nurse Practitioner Family; Visit Provider Nurse Practitioner Family | DX: T81.89XA Other complications of procedures, not elsewhere classified, initial encounter (principal); Y83.8 Other surgical procedures as the cause of abnormal reaction of the patient, or of later complication, without mention of misadventure at the time of the procedure | CPT/HCPCS: 11042; G0463 ==

== ENCOUNTER 2020-05-19 10:49 | Outpatient (CLI) | payer MEDICAID, SELFPAY | END 2020-05-19 10:50 | disposition home or self-care (01) | LOC: WOUND 10:53 | PROVIDERS: Visit Provider Surgery | DX: T81.89XA Other complications of procedures, not elsewhere classified, initial encounter (principal); Y83.8 Other surgical procedures as the cause of abnormal reaction of the patient, or of later complication, without mention of misadventure at the time of the procedure | CPT/HCPCS: 11042 ==

== ENCOUNTER 2020-05-19 11:40 | Outpatient (CLI) | payer MEDICAID, SELFPAY ==
--- NOTE | 2020-05-19 11:48 | XR_ITS ---
NOTE: Report was unsigned for reason: Ordering provider was edited. Original Signature date and time was: 05/19/20 @1317 WS: [id number] PROCEDURE: XR chest 2V* [id number] CLINICAL INFORMATION: PAIN,REDNESS, NON-HEALING ULCER, POST PACEMAKER, COMPARISON: March 30, 2020 FINDINGS: Heart: Cardiomegaly. Removal of cardiac pacer pack. Single pacer lead. Lungs: Lungs are clear. No consolidation or pleural fluid. Bones: Hypertrophic thoracic spine. [facility] XR/XR chest 2V* [id number] IMPRESSION: 1. Cardiomegaly. 2. No pneumothorax. Removal of cardiac pacer battery pack with single pacer le ad. 3. Lungs are well aerated.
== END 2020-05-19 11:41 | disposition home or self-care (01) ==
LOC: WPI 11:44
PROVIDERS: PCP Nurse Practitioner Family; Visit Provider Internal Medicine Cardiovascular Disease
DX: R07.9 Chest pain, unspecified (principal); L53.9 Erythematous condition, unspecified; L98.499 Non-pressure chronic ulcer of skin of other sites with unspecified severity; I51.7 Cardiomegaly
CPT/HCPCS: 71046

== ENCOUNTER → 2020-05-24 09:38 | Outpatient (BNVA) | payer MEDICAID, SELFPAY | PROVIDERS: PCP Nurse Practitioner Family; Visit Provider Nurse Practitioner Family | DX: E11.65 Type 2 diabetes mellitus with hyperglycemia (principal); Z12.5 Encounter for screening for malignant neoplasm of prostate | CPT/HCPCS: 80053; 80061; 82044; 83036; 85025; G0103 ==

== ENCOUNTER 2020-05-25 10:27 | Outpatient (CLI) | payer MEDICAID, SELFPAY | END 2020-05-25 10:28 | disposition home or self-care (01) | LOC: WOUND 10:29 | PROVIDERS: PCP Nurse Practitioner Family; Visit Provider Emergency Medicine | DX: T81.89XA Other complications of procedures, not elsewhere classified, initial encounter (principal) | CPT/HCPCS: 11042 ==

== ENCOUNTER 2020-06-01 13:30 | Outpatient (CLI) | payer MEDICAID, SELFPAY | END 2020-06-01 13:31 | disposition home or self-care (01) | LOC: WOUND 13:31 | PROVIDERS: PCP Nurse Practitioner Family; Visit Provider Nurse Practitioner Family | DX: T81.89XA Other complications of procedures, not elsewhere classified, initial encounter (principal) | CPT/HCPCS: 11042 ==

== ENCOUNTER 2020-06-08 10:30 | Outpatient (CLI) | payer MEDICAID, SELFPAY | END 2020-06-08 10:31 | disposition home or self-care (01) | LOC: WOUND 10:31 | PROVIDERS: PCP Nurse Practitioner Family; Visit Provider Nurse Practitioner Family | DX: T81.89XA Other complications of procedures, not elsewhere classified, initial encounter (principal) | CPT/HCPCS: 11042 ==

== ENCOUNTER 2020-06-15 09:03 | Outpatient (CLI) | payer MEDICAID, SELFPAY | END 2020-06-15 09:04 | disposition home or self-care (01) | LOC: WOUND 09:04 | PROVIDERS: PCP Nurse Practitioner Family; Visit Provider Thoracic Surgery (Cardiothoracic Vascular Surgery) | DX: L98.492 Non-pressure chronic ulcer of skin of other sites with fat layer exposed (principal) | CPT/HCPCS: 99212 ==

== ENCOUNTER → 2020-06-21 09:08 | Outpatient (BNVA) | payer MEDICAID, SELFPAY | PROVIDERS: PCP Nurse Practitioner Family; Visit Provider Nurse Practitioner Family | DX: M79.671 Pain in right foot (principal) | CPT/HCPCS: 73630 ==

== ENCOUNTER 2020-06-22 09:58 | Outpatient (CLI) | payer MEDICAID, SELFPAY | END 2020-06-22 09:59 | disposition home or self-care (01) | LOC: WOUND 10:00 | PROVIDERS: Visit Provider Nurse Practitioner Family | DX: T81.89XA Other complications of procedures, not elsewhere classified, initial encounter (principal) | CPT/HCPCS: 99212 ==

== ENCOUNTER → 2020-07-26 09:35 | Outpatient (BNVA) | payer MEDICAID, SELFPAY | PROVIDERS: PCP Nurse Practitioner Family; Visit Provider Nurse Practitioner | DX: F31.81 Bipolar II disorder (principal) | CPT/HCPCS: 99213 ==

== ENCOUNTER → 2020-09-01 10:30 | Outpatient (BNVA) | payer MEDICAID, SELFPAY | PROVIDERS: PCP Nurse Practitioner Family | DX: E11.65 Type 2 diabetes mellitus with hyperglycemia (principal) | CPT/HCPCS: 36416; 82962; 83036 ==

== ENCOUNTER → 2020-10-17 15:20 | Outpatient (BNVA) | payer MEDICAID, SELFPAY | PROVIDERS: PCP Nurse Practitioner Family; Visit Provider Nurse Practitioner Family | DX: R10.9 Unspecified abdominal pain (principal) | CPT/HCPCS: 74018; 80053; 81000; 85025 ==

== ENCOUNTER 2020-10-30 09:54 | Outpatient (CLI) | payer MEDICAID, SELFPAY ==
--- NOTE | 2020-10-30 10:00 | CT_ITS ---
WS: [id number] CT ABDOMEN PELVIS TECHNIQUE: Contrast-enhanced CT of the abdomen and pelvis with coronal and sagittal reformatted image s. CLINICAL INFORMATION: R10.31 - Right lower quadrant pain COMPARISON: CT 3 15,017 DLP: 1152.[address] scans at [facility] use at least one of these dose optimization techniques: automat ed exposure control; mA and/or kV adjustment per patient size (includes targeted exams where dose is matched to clinical indication); or iterative reconstruction. FINDINGS: Hepatomegaly with diffuse fatty infiltration of the liver. Gallbladder appears normal. Lung bases are well aerated. Fatty atrophy of the pancreas. Normal GE junction. Normal spleen. Adrenal glands are n ormal. Normal renal parenchymal enhancement. No hydronephrosis. Nonobstructing bilateral renal calcul i largest in measuring approximate 7 mm. No hydronephrosis. No obstructing renal or ureteral calculi. Aortic calcification. Normal caliber abdominal aorta. A few sigmoid diverticuli. No evidence of acute diverticulitis. Normal appendix in the right lower quadrant. Incidental fat-containing umbilical her abhijit. No abdominal pelvic or inguinal lymphadenopathy. Benign-appearing bone island in S1 vertebral jim dy. CT/CT abdomen pelvis w con* [id number] IMPRESSION: 1. Hepatomegaly with diffuse fatty infiltration. 2. No obstructing renal or ureteral calculi. No hydronephrosis. 3. Normal caliber abdominal aorta. 4. Diverticulosis. No evidence of acute diverticulitis. 5. Incidental fat-containing umbilical hernia. 6. No other significant findings.
[2020-10-30] MEDS: iohexol 300 mg/mL 50 mL Btl PO (11:05)
[2020-10-30] MEDS: iohexol 300 mg/mL 100 mL Btl IV (11:23)
== END 2020-10-30 09:55 | disposition home or self-care (01) ==
LOC: RADWPI 09:57
PROVIDERS: PCP Nurse Practitioner Family; Visit Provider Nurse Practitioner Family
DX: R10.31 Right lower quadrant pain (principal); R16.0 Hepatomegaly, not elsewhere classified; K76.0 Fatty (change of) liver, not elsewhere classified; K57.90 Diverticulosis of intestine, part unspecified, without perforation or abscess without bleeding; K42.9 Umbilical hernia without obstruction or gangrene
CPT/HCPCS: 74177; Q9967

== ENCOUNTER → 2020-11-27 15:26 | Outpatient (BNVA) | payer MEDICAID, SELFPAY | PROVIDERS: PCP Nurse Practitioner Family; Visit Provider Nurse Practitioner Family | DX: M79.645 Pain in left finger(s) (principal); M19.042 Primary osteoarthritis, left hand | CPT/HCPCS: 73130 ==

== ENCOUNTER 2020-12-13 13:33 | Outpatient (CLI) | payer MEDICAID, SELFPAY | END 2020-12-13 13:34 | disposition home or self-care (01) | LOC: SPT 13:34 | PROVIDERS: PCP Nurse Practitioner Family; Visit Provider Specialist | DX: M18.12 Unilateral primary osteoarthritis of first carpometacarpal joint, left hand (principal) | CPT/HCPCS: 97760; L3809 ==

== ENCOUNTER → 2021-01-10 13:22 | Outpatient (BNVA) | payer MEDICAID, SELFPAY | PROVIDERS: PCP Nurse Practitioner Family; Visit Provider Specialist | DX: M18.12 Unilateral primary osteoarthritis of first carpometacarpal joint, left hand (principal) | CPT/HCPCS: 80053; 85025; 85651; 86140; 86431 ==

== ENCOUNTER → 2021-01-26 11:45 | Outpatient (BNVA) | payer MEDICAID, SELFPAY | PROVIDERS: PCP Nurse Practitioner Family; Visit Provider Nurse Practitioner Family | DX: R63.4 Abnormal weight loss (principal); E11.65 Type 2 diabetes mellitus with hyperglycemia; Z80.0 Family history of malignant neoplasm of digestive organs | CPT/HCPCS: 80053; 80061; 82607; 83036; 84443; 85025 ==

== ENCOUNTER → 2021-02-22 08:42 | Outpatient (BNVA) | payer MEDICAID, SELFPAY | PROVIDERS: PCP Nurse Practitioner Family; Visit Provider Surgery | DX: R63.4 Abnormal weight loss (principal); Z20.822 Contact with and (suspected) exposure to COVID-19 | CPT/HCPCS: 87635 ==

== ENCOUNTER 2021-02-27 07:48 | Day surgery (SDC) | payer MEDICAID, SELFPAY ==
[2021-02-23 14:43] VITALS: BMI 40.4
--- NOTE | 2021-02-27 08:28 | W.PM.OPSUD ---
Surgery/Procedure H&P Update DATE OF PROCEDURE: February 27, 2021 DATE H&P PERFORMED: 02/12/21 H&P UPDATE INFORMATION: I have reviewed H&P completed within last 30 days, I have examined patient prior to procedure and No changes to prior documentation PREOP DIAGNOSIS: panendoscopy PLANNED PROCEDURE: Operation Date: 02/27/21 09:30 Proposed Procedures p EGD/colon [id number] R63.4 Z80.0(Not Applicable) - Brian Murrell MD s Colonoscopy(Not Applicable) - Brian Murrell MD
--- NOTE | 2021-02-27 08:38 | ANES.PREANE2 ---
Pre-Anesthetic Assessment Pre-Anesthetic Assessment: Height/Weight: Height 1.65 m Weight 110.223 kg Preop Diagnosis: panendoscopy Proposed Procedure: Operation Date: 02/27/21 09:30 Proposed Procedures p EGD/colon [id number] R63.4 Z80.0(Not Applicable) - Brian Murrell MD s Colonoscopy(Not Applicable) - Brian Murrell MD Was Beta Radha taken within 24 hours: Yes Was Clonidine taken within 24 hours: N/A Social: Social History: Tobacco and No alcohol Exam: Pre-Anes Outpt Exam: alert, oriented x 3, clear to auscultation bilaterally and regular rate & rhythm Airway: Submandibular: WNL Cervical ROM: WNL MP: 2 Additional comments: Poor Pulmonary: Pulmonary: COPD CV/HEM: CV/HEM: CAD, CHF and HTN Comments: Pacer/defibrillator-AICD Metabolic: Metabolic: DM and Morbid obesity Musc/skel: Musc/skel: Lower Back Pain Anesthetic Plan: ASA status: 3 Anesthesia: MAC Risk of > 500 ml blood loss (7ml/kg in children): No PFSH Anesthesia PFSH: Medical History Bipolar II disorder Cardiomyopathy Diabetes Hypertension Mixed hyperlipidemia Pacemaker Pacemaker malfunction Surgical History History of carpal tunnel release of both wrists History of colonoscopy 2016 History of permanent cardiac pacemaker placement Hx of cataract surgery Hx of shoulder surgery Family History Grandfather CAD (coronary artery disease) Brother Cancer colon cancer Diabetes Mother Diabetes Other Hypertension Denies family history of Clotting disorder Dementia Chronic kidney disease (CKD) Suicide Anesthesia complication Bleeding disorder Lung disease Stroke Social History Smoking and tobacco status: former smoker Quit status (tobacco): has quit using tobacco Year quit tobacco: 1999 Alcohol intake: former Year of sobriety/quit date alcohol: 1997 Lives independently: Yes Household members: spouse Marital status: Current occupational status: disabled History of recent travel: No Current gender identity: Male Special fernando needs: No Agree to transfusion: Yes Data Anesthesia Cardiac Studies: No Data to Display
[2021-02-27 08:47] VITALS: BP 120/67; PULSE 75; RESP 16; TEMP 36.3; O2SAT 96
[2021-02-27] MEDS: sodium chloride 0.9% 1,000 ML 30 ML IV (08:51)
[2021-02-27 08:57] LABS: Glucose Point of Care 204 mg/dL (70-110)
[2021-02-27 10:48] VITALS: BP 124/75; PULSE 74; RESP 18; TEMP 36.6; O2SAT 92
--- NOTE | 2021-02-27 11:27 | ANE.PACU2 ---
Inpatient post-anesthesia follow up: Airway intact: Yes Vital signs: Temperature 97.8 F Pulse Rate 74 Respiratory Rate 18 Blood Pressure 124/75 Pulse Oximetry 92 Oxygen Delivery Me thod Room Air Oxygen Flow Rate Fraction of Inspir ed Oxygen Hydration adequate: Yes Mental status: Baseline
== END 2021-02-27 11:17 | disposition home or self-care (01) ==
PROVIDERS: PCP Nurse Practitioner Family; Visit Provider Surgery
PROC: 0DJ08ZZ Inspection of Upper Intestinal Tract, Via Natural or Artificial Opening Endoscopic (ICD-10-PCS; CPT 43235; principal; 2021-02-27 09:30)
PROC: 0DJD8ZZ Inspection of Lower Intestinal Tract, Via Natural or Artificial Opening Endoscopic (ICD-10-PCS; CPT 45378; 2021-02-27 09:30)
DX: D12.4 Benign neoplasm of descending colon (principal); K64.8 Other hemorrhoids; K29.70 Gastritis, unspecified, without bleeding; K29.80 Duodenitis without bleeding; Z80.0 Family history of malignant neoplasm of digestive organs; J44.9 Chronic obstructive pulmonary disease, unspecified; I25.10 Atherosclerotic heart disease of native coronary artery without angina pectoris; I11.0 Hypertensive heart disease with heart failure; I50.9 Heart failure, unspecified; E11.9 Type 2 diabetes mellitus without complications; E66.01 Morbid (severe) obesity due to excess calories; Z68.41 Body mass index [BMI] 40.0-44.9, adult; E78.2 Mixed hyperlipidemia; Z82.49 Family history of ischemic heart disease and other diseases of the circulatory system; Z83.3 Family history of diabetes mellitus; Z87.891 Personal history of nicotine dependence; Z79.82 Long term (current) use of aspirin; Z95.0 Presence of cardiac pacemaker
CPT/HCPCS: 36416; 43235; 45380; 82962; 88305; 96360; 96361; J2704; J7030

== ENCOUNTER → 2021-03-07 11:48 | Outpatient (BNVA) | payer MEDICAID, SELFPAY | PROVIDERS: PCP Nurse Practitioner Family; Visit Provider Nurse Practitioner | DX: F31.81 Bipolar II disorder (principal) | CPT/HCPCS: 99214 ==

== ENCOUNTER → 2021-03-15 10:22 | Outpatient (BNVA) | payer MEDICAID, SELFPAY | PROVIDERS: PCP Nurse Practitioner Family; Visit Provider Internal Medicine Rheumatology | DX: M19.041 Primary osteoarthritis, right hand (principal); M19.042 Primary osteoarthritis, left hand; E83.119 Hemochromatosis, unspecified; Z79.899 Other long term (current) drug therapy; F17.220 Nicotine dependence, chewing tobacco, uncomplicated | CPT/HCPCS: 20600; 99203 ==

== ENCOUNTER → 2021-04-04 08:42 | Outpatient (BNVA) | payer MEDICAID, SELFPAY | PROVIDERS: PCP Nurse Practitioner Family; Visit Provider Nurse Practitioner | DX: F31.81 Bipolar II disorder (principal) | CPT/HCPCS: 99214 ==

== ENCOUNTER → 2021-05-02 10:36 | Outpatient (BNVA) | payer MEDICAID, SELFPAY | PROVIDERS: PCP Nurse Practitioner Family; Visit Provider Nurse Practitioner Family | DX: E11.42 Type 2 diabetes mellitus with diabetic polyneuropathy (principal); E78.2 Mixed hyperlipidemia; I10 Essential (primary) hypertension | CPT/HCPCS: 80053; 80061; 82043; 83036; 85025 ==

== ENCOUNTER → 2021-06-07 12:06 | Outpatient (BNVA) | payer MEDICAID, SELFPAY | PROVIDERS: PCP Nurse Practitioner Family; Visit Provider Specialist | DX: M79.7 Fibromyalgia (principal); M25.511 Pain in right shoulder; G89.29 Other chronic pain; Z87.891 Personal history of nicotine dependence | CPT/HCPCS: 20550; 20552; 99214; J1030; J3490 ==

== ENCOUNTER → 2021-07-02 09:58 | Outpatient (BNVA) | payer MEDICAID, SELFPAY | PROVIDERS: PCP Nurse Practitioner Family; Visit Provider Nurse Practitioner | DX: F31.81 Bipolar II disorder (principal) | CPT/HCPCS: 99214 ==

== ENCOUNTER 2021-07-24 21:31 | Emergency (ER) | payer MEDICAID, SELFPAY ==
[2021-07-24 21:38] VITALS: BP 108/70; PULSE 76; RESP 19; TEMP 36.7; O2SAT 97; BMI 42.4
--- NOTE | 2021-07-24 21:47 | ED_ITS ---
HPI - Abdominal Pain General: Chief Complaint: Abdominal Pain Stated Complaint: ABD PAIN Time Seen by Provider: 07/24/21 21:47 History of Present Illness: HPI narrative: Mr. Alexander is a 60-year-old gentleman with significant past medical for heart failure, hypertension, hyperlipidemia, COPD, diabetes who presents emerged department due to abdominal pain. He reports generalized abdominal pain with decreased p.o. intake for about 4 to 5 days. Symptom onset was gradual. Endorses aching in quality and is now localized worsening in the right lower quadrant. No associated fevers. He is having normal bowel movements and no melena. He is urinating normally. No radiation to the testicles. He does have a history of prior umbilical hernia repair. Symptoms are worse with palpation and movement but do not go with rest. No other specific exacerbating, or alleviating factors identified. Review of Systems General: Reports: 10 or more systems reviewed and unremarkable except in HPI and below Narrative: CONSTITUTIONAL: denies fever, fatigue, weakness EYES - denies pain, denies loss of vision EARS - denies ear issues. NOSE - denies congestion or rhinorrhea. THROAT - denies sore throat or difficulty swallowing. CARDIOVASCULAR - denies chest pain and palpitations RESPIRATORY - denies shortness of breath and cough GASTROINTESTINAL -see HPI GENITOURINARY - denies dysuria or urinary frequency MUSCULOSKELETAL- denies deformity or pain SKIN - denies rashes or new changed skin lesions NEUROLOGIC - denies focal weakness or sensory changes HEMATOLOGIC/LYMPHATIC - denies easy bruising or lymphadenopathy. [facility] ED PFSH: Medical History Bipolar II disorder Cardiomyopathy Diabetes Hypertension Mixed hyperlipidemia Osteoarthritis of hands, bilateral Pacemaker Pacemaker malfunction Surgical History H/O esophagogastroduodenoscopy (02/27/21) gastritis, duodenitis History of carpal tunnel release of both wrists History of colonoscopy (02/27/21) descending colon polyp, hemorrhoids History of permanent cardiac pacemaker placement Hx of cataract surgery Hx of shoulder surgery Family History Grandfather CAD (coronary artery disease) Brother Cancer colon cancer Diabetes Mother Diabetes Other Hypertension Rheumatoid arthritis Social History Quit status (tobacco): has quit using tobacco Year quit tobacco: 1999 Second hand smoke exposure: No Alcohol intake: former Year of sobriety/quit date alcohol: 1997 Caregiver/support person: Yes Lives independently: Yes Household members: spouse Marital status: service: No Current occupational status: disabled History of recent travel: No Current gender identity: Male Special fernando needs: No Agree to transfusion: Yes Physical Exam Narrative: EXAM NARRATIVE: GENERAL/CONSTITUTIONAL - well-appearing. Dis comfort due to pain. Obese. Eyes - PERRL, no conjunctival injection ENMT - Atraumatic external nose and ears. Moist mucous membranes NECK - supple. trachea midline CARDIOVASCULAR - regular rate and rhythm. Peripheral pulses 2+ and equal RESPIRATORY -clear to auscultation bilaterally. No retractions or accessory muscle use. ABDOMEN/GI - tenderness palpation of the right flank. Nondistended. No tenderness to percussion or evidence of peritonitis MSK - Extremities without obvious deformity or tenderness to palpation SKIN - Warm, Dry NEURO - alert and appropriately oriented. strength and sensation intact. Moves all extremities equally. PSYCH - Appropriate mood and affect Course ED course: - Patient was seen and evaluated by me at bedside - Patient placed on cardiac monitors, IV access obtained - Initial evaluation notable for discomfort due to pain. Abdominal exam as noted -Symptom treatment ordered - Labs notable for mild leukocytosis, elevated creatinine above baseline. Urinalysis not concerning for urinary tract infection - Imaging notable for nephrolithiasis -I discussed these findings with the patient. I discussed the case with urology microsoft [employer] ax consultant, as urology not available at this time, in [facility]. No emergent need for operative intervention or transfer at this time in this patient remarkably uncomfortable with outpatient follow-up. - Upon serial reexamination after treatment the patient was improved - Based on patient history, evaluation, labs, and imaging as interpreted the most likely cause of the patient's condition is nephrolithiasis - The results of ED evaluation were discussed with the patient. I offered transfer versus follow-up to the patient. He elected for follow-up. I gave strict return precautions if he could not get into see urology tomorrow. I discussed prescriptions and/or symptomatic cares (if applicable) including ap propriate and responsible use, followup plan, and return precautions. The patient verbalized understanding and felt safe for discharge. - Patient discharged in satisfactory condition. Vital Signs: Vital signs: Vital Signs Temperature 98.0 F 07/24/21 21:38 Pulse Rate 76 07/25/21 01:54 Respiratory Rate 18 07/25/21 01:54 Blood Pressure 101/81 07/25/21 01:54 Pulse Oximetry 98 07/25/21 01:54 MDM - Abdominal Pain Medical Records: Attestation: I reviewed the patient's medical records. Lab Data: Attestation: I reviewed the patient's lab results. Labs: Lab Results 07/24/21 07/24/21 07/24/21 Range/Units 22:12 22:25 22:25 WBC 12.9 H (4.0-10.0) 10^3/ uL RBC 4.33 (4.1-5.3) 10^6/u L Hgb 13.5 (11.7-16.6) g/dL Hct 39.2 L (42.0-52.0) % MCV 90.5 (80-94) fl MCH 31.2 (28.0-34.0) pg MCHC 34.4 (30.0-36.0) g/dL RDW 12.9 (12.1-15.1) % Plt Count 207 (130-400) 10^3/c mm MPV 12.0 H (7.4-10.4) fL Neut % (Auto) 67.7 % Lymph % (Auto) 22.0 % Faulkner % (Auto) 7.6 % Eos % (Auto) 1.9 % Baso % (Auto) 0.3 % Neut # (Auto) 8.74 H (1.8-7.7) 10^3/u L Lymph # (Auto) 2.8 (0.8-4.8) 10^3/u L Faulkner # (Auto) 1.0 H (0.2-0.9) 10^3/u L Eos # (Auto) 0.2 (0.0-0.8) 10^3/u L Baso # (Auto) 0.0 (0.0-0.1) 10^3/u L Nucleated RBC % (a uto) 0 % Nucleated RBCs # 0.0 /100WBC Sodium 132 L (136-145) mmol/L Potassium 4.3 (3.5-5.1) mmol/L Chloride 97 L (98-107) mmol/L Carbon Dioxide 22 (22-29) mmol/L Anion Gap 17.3 (5-19) BUN 15 (8-23) mg/dL Creatinine 1.3 H (0.7-1.2) mg/dL GFR Calculation 56.3 L (90-130) mL/min Glucose 214 H (65-115) mg/dL Calculated Osmolal ity 281 L (285-295) mOsm/k g Lactate (0.5-2.2) mmol/L Calcium 9.0 (8.5-10.5) mg/dL Total Bilirubin 0.3 (0.15-1.2) mg/dL AST 19 (0-40) U/L ALT 24 (0-41) U/L Alkaline Phosphata se 59 (40-130) IU/L NT-Pro-B Natriuret Pep 675 H (0-125) pg/mL Total Protein 6.3 L (6.6-8.7) g/dL Albumin 3.9 (3.5-5.2) g/dL Globulin 2.4 (1.3-4.6) g/dL Lipase 50 (13-60) U/L Urine Color Yellow (Yellow) Urine Appearance Clear (CLEAR) Urine pH 5 (5-7) Ur Specific Gravit y 1.020 (1.005-1.030) Urine Protein Neg (Negative) Urine Glucose (UA) 4+ H (Normal) Urine Ketones Negative (Negative) Urine Blood Neg (Negative) Urine Nitrate Negative (Negative) Urine Bilirubin Neg (Negative) Urine Urobilinogen 8 H (Negative) mg/dL Ur Leukocyte Holly ase Negative (Negative) 07/24/21 Range/Units 22:25 WBC (4.0-10.0) 10^3/ uL RBC (4.1-5.3) 10^6/u L Hgb (11.7-16.6) g/dL Hct (42.0-52.0) % MCV (80-94) fl MCH (28.0-34.0) pg MCHC (30.0-36.0) g/dL RDW (12.1-15.1) % Plt Count (130-400) 10^3/c mm MPV (7.4-10.4) fL Neut % (Auto) % Lymph % (Auto) % Faulkner % (Auto) % Eos % (Auto) % Baso % (Auto) % Neut # (Auto) (1.8-7.7) 10^3/u L Lymph # (Auto) (0.8-4.8) 10^3/u L Faulkner # (Auto) (0.2-0.9) 10^3/u L Eos # (Auto) (0.0-0.8) 10^3/u L Baso # (Auto) (0.0-0.1) 10^3/u L Nucleated RBC % (a uto) % Nucleated RBCs # /100WBC Sodium (136-145) mmol/L Potassium (3.5-5.1) mmol/L Chloride (98-107) mmol/L Carbon Dioxide (22-29) mmol/L Anion Gap (5-19) BUN (8-23) mg/dL Creatinine (0.7-1.2) mg/dL GFR Calculation (90-130) mL/min Glucose (65-115) mg/dL Calculated Osmolal ity (285-295) mOsm/k g Lactate 2.0 (0.5-2.2) mmol/L Calcium (8.5-10.5) mg/dL Total Bilirubin (0.15-1.2) mg/dL AST (0-40) U/L ALT (0-41) U/L Alkaline Phosphata se (40-130) IU/L NT-Pro-B Natriuret Pep (0-125) pg/mL Total Protein (6.6-8.7) g/dL Albumin (3.5-5.2) g/dL Globulin (1.3-4.6) g/dL Lipase (13-60) U/L Urine Color (Yellow) Urine Appearance (CLEAR) Urine pH (5-7) Ur Specific Gravit y (1.005-1.030) Urine Protein (Negative) Urine Glucose (UA) (Normal) Urine Ketones (Negative) Urine Blood (Negative) Urine Nitrate (Negative) Urine Bilirubin (Negative) Urine Urobilinogen (Negative) mg/dL Ur Leukocyte Holly ase (Negative) Discharge Plan Discharge Patient Disposition: Home Clinical Impression: Nephrolithiasis, Abdominal pain, Creatinine elevation Hydronephrosis Qualifiers: Hydronephrosis type: with renal calculous obstruction Qualified Code(s): N13.2 - Hydronephrosis with renal and ureteral calculous obstruction Condition: Stable Prescriptions: New oxycodone 5 mg tablet 5 mg PO Q4H PRN (Reason: pain) Qty: 14 RF: 0 Flomax 0.4 mg capsule 0.4 mg PO DAILY Qty: 30 RF: 0 No Action aspirin [Aspir-Sagrario] 325 mg tablet,delayed release (DR/EC) 325 mg PO DAILY RF: 0 multivitamin Capsule 1 cap PO DAILY RF: 0 tizanidine 4 mg capsule 4 mg PO TID PRN (Reason: muscle spasticity) Qty: 30 RF: 0 lamotrigine [Lamictal] 100 mg tablet 100 mg PO DAILY Qty: 30 RF: 2 allopurinol 300 mg tablet 300 mg PO DAILY Qty: 90 RF: 12 (DME) blood-glucose meter [Blood Glucose Monitoring] Kit See Rx Instructions .ROUTE .MEDSUPPLY Qty: 1 RF: 0 (DME) Blood Glucose Test Strip See Rx Instructions .ROUTE .MEDSUPPLY Qty: 100 RF: 11 furosemide 20 mg tablet 20 mg PO DAILY Qty: 90 RF: 3 Victoza 2-Loki 0.6 mg/0.1 mL (18 mg/3 mL) pen injector 1.8 mg SUBCUT DAILY Qty: 6 RF: 2 canagliflozin [Invokana] 300 mg tablet See Rx Instructions .ROUTE .COMPLEX Qty: 30 RF: 0 losartan 100 mg tablet 100 mg PO DAILY Qty: 90 RF: 3 carvedilol 25 mg tablet 25 mg PO BID Qty: 180 RF: 3 omeprazole 40 mg capsule,delayed release(DR/EC) See Rx Instructions .ROUTE .COMPLEX Qty: 90 RF: 1 spironolactone 25 mg tablet 25 mg PO DAILY Qty: 90 RF: 3 potassium citrate 10 mEq (1,080 mg) tablet extended release 20 meq PO BID Qty: 120 RF: 12 clonazepam 0.5 mg tablet 0.5 mg PO DAILY PRN (Reason: anxiety) Qty: 30 RF: 0 albuterol sulfate [ProAir HFA] 90 mcg/actuation HFA aerosol inhaler 2 puff INHALATION Q6H PRN (Reason: shortness of breath or wheezing) Qty: 18 RF: 2 ibuprofen 800 mg tablet 800 mg PO BID PRN (Reason: Pain) Qty: 60 RF: 2 fluticasone propionate 50 mcg/actuation spray,suspension See Rx Instructions .ROUTE .COMPLEX Qty: 16 RF: 5 glipizide 10 mg tablet extended release 24hr See Rx Instructions .ROUTE .COMPLEX Qty: 30 RF: 2 rosuvastatin 20 mg tablet 20 mg PO DAILY Qty: 30 RF: 5 fenofibrate 160 mg tablet See Rx Instructions .ROUTE .COMPLEX Qty: 30 RF: 5 metformin 500 mg tablet extended release 24 hr See Rx Instructions .ROUTE .COMPLEX Qty: 120 RF: 0 cetirizine 10 mg tablet See Rx Instructions .ROUTE .COMPLEX Qty: 30 RF: 5 Discharge Orders: Discharge ED (Routine); Ordered 07/25/21 Ordered By: Zander Cheney Referrals: Lucrecia Blandon FNP [Primary Care Provider] - Discharge Diet: Usual diet Discharge Activity: Resume usual activity Patient Instructions: Kidney Stones (ED), Abdominal Pain (ED), Hydronephrosis (ED), Opioid Safety Activity Restrictions/Additional Instructions: Thank you for visiting the emergency department. You were seen and evaluated for abdominal pain. You were found to have a 7 mm obstructing kidney stone. As discussed this requires intervention. If you are unable to get in touch with your urologist today we recommend returning to the emergency department for transfer for intervention. Please return the emergency department for anything that you are concerned about and feel needs emergency department evaluation. Coding Level of Care Code ED Mail Distribution Scheme Examiner for Ck Crooks
--- NOTE | 2021-07-24 22:01 | CTR_ITS ---
PROCEDURE INFORMATION: Exam: CT Abdomen And Pelvis With Contrast Exam date and time: 07/24/2021 10:01 PM Age: 60 years old Clinical indication: Abdominal pain; Localized; Right lower quadrant (rlq); Prior surgery; Surgery type: Hernia repair. Defibrillator; Patient HX: Rlq pain with diarrhea. TECHNIQUE: Imaging protocol: Computed tomography of the abdomen and pelvis with contrast. Radiation optimization: All CT scans at this facility use at least one of these dose optimization techniques: automated exposure control; mA and/or kV adjustment per patient size (includes targeted exams where dose is matched to clinical indication); or iterative reconstruction. Contrast material: VISI 320; Contrast volume: 95 ml; Contrast route: INTRAVENOUS (IV); COMPARISON: CT abdomen pelvis w con* [id number] 10/30/2020 11:20 AM RADIATION DOSE METRICS: Total DLP (mGy-cm): 1751.33 FINDINGS: Liver: Normal. No mass. Gallbladder and bile ducts: Normal. No calcified stones. No ductal dilation. Pancreas: Normal. No ductal dilation. Spleen: Normal. No splenomegaly. Adrenal glands: Normal. No mass. Kidneys and ureters: One or more nonobstructing left renal calyceal stones. 7 mm right UPJ stone with moderate to severe right hydronephrosis. Stomach and bowel: Unremarkable. No obstruction. No mucosal thickening. Appendix: Normal appendix. Intraperitoneal space: Unremarkable. No free air. No significant fluid collection. Vasculature: Calcification of the abdominal aorta and/or iliac arteries consistent with atherosclerotic vessel disease. Lymph nodes: Unremarkable. No enlarged lymph nodes. Urinary bladder: Unremarkable as visualized. Reproductive: Unremarkable as visualized. Bones/joints: Mild multilevel spine degenerative changes including degenerative disc disease, spondylosis and facet degenerative changes. Soft tissues: Unremarkable. CT/CT abdomen pelvis w con* [id number] IMPRESSION: 7 mm right UPJ stone with moderate to severe right hydronephrosis. Radiation Dose CTDIVOL = (mGy): DLP = 1751.33 (mGy-cm)
--- NOTE | 2021-07-24 22:02 | ECG_ITS ---
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 Measurements Intervals [place] Rate: 73 P: 109 ME: 176 QRS: 199 QRSD: 171 T: 35 QT: 425 QTc: 470 Interpretive Statements ELECTRONIC ATRIAL PACEMAKER ELECTRONIC VENTRICULAR PACEMAKER Premature ventricular contractions ABNORMAL RHYTHM ECG Compared to ECG 04/22/2020 17:35:35 No significant changes Electronically Signed On 07-24-2021 23:34:59 CDT by Joe Holder M.D. [id number]
[2021-07-24 22:20] LABS: Add Urine Microscopic? NO; Charge for UA Resulting for Rev
[2021-07-24] MEDS: morphine 4 mg/mL SDV 1 mL IVP (22:26)
[2021-07-24] MEDS: sodium chloride 0.9% 1,000 ML 999 ML IV (22:26)
[2021-07-24] MEDS: ondansetron 2 mg/ML SDV 2 mL 4 MG IVP (22:26)
[2021-07-24 22:29] LABS: Bilirubin Urine Neg (Negative); Blood Urine Neg (Negative); Glucose Urine UA 4+ (Normal); Ketones Urine Negative (Negative); Leukocyte Esterase Urine Negative (Negative); Nitrate Urine Negative (Negative); Protein Urine Neg (Negative); Urine Appearance Clear (CLEAR); Urine Color Yellow (Yellow); Urobilinogen Urine 8 mg/dL (Negative); pH Urine 5 (5-7)
[2021-07-24 22:33] LABS: Basophils % 0.3 %; Eosinophils # 0.2 10^3/uL (0.0-0.8); Eosinophils % 1.9 %; Hematocrit 39.2 % (42.0-52.0); Hemoglobin 13.5 g/dL (11.7-16.6); Lymphocytes # 2.8 10^3/uL (0.8-4.8); Mean Corpuscular HGB Conc 34.4 g/dL (30.0-36.0); Mean Corpuscular Hemoglobin 31.2 pg (28.0-34.0); Mean Corpuscular Volume 90.5 fl (80-94); Monocytes % 7.6 %; Neutrophils # 8.74 10^3/uL (1.8-7.7); Neutrophils % 67.7 %; Nucleated Red Blood Cells % 0 %; Platelet Count 207 10^3/cmm (130-400); Red Blood Count 4.33 10^6/uL (4.1-5.3); Red Cell Distribution Width 12.9 % (12.1-15.1); White Blood Count 12.9 10^3/uL (4.0-10.0)
[2021-07-24 22:55] VITALS: BP 110/78; PULSE 75; RESP 18; O2SAT 98
[2021-07-24 23:08] LABS: Alanine Aminotransferase 24 U/L (0-41); Albumin Level 3.9 g/dL (3.5-5.2); Alkaline Phosphatase 59 IU/L (40-130); Anion Gap 17.3 (5-19); Aspartate Amino Transferase 19 U/L (0-40); Blood Urea Nitrogen 15 mg/dL (8-23); Carbon Dioxide 22 mmol/L (22-29); Chloride 97 mmol/L (98-107); Globulin 2.4 g/dL (1.3-4.6); Glomerular Filtration Rate 56.3 mL/min (90-130); Glucose 214 mg/dL (65-115); Lipase 50 U/L (13-60); NT Pro B Type Natriuretic Pept 675 pg/mL (0-125); Osmolality Calculated 281 mOsm/kg (285-295); Potassium 4.3 mmol/L (3.5-5.1); Sodium 132 mmol/L (136-145); Total Bilirubin 0.3 mg/dL (0.15-1.2); Total Protein 6.3 g/dL (6.6-8.7)
[2021-07-24] MEDS: iodixanol 320 mg/mL 100mL Btl IV (23:20)
[2021-07-25] MEDS: ketorolac 30 mg/mL INJ 15 MG IVP (00:30)
[2021-07-25 01:54] VITALS: BP 101/81; PULSE 76; RESP 18; O2SAT 98
== END 2021-07-25 01:56 | disposition home or self-care (01) ==
PROVIDERS: Emergency Provider Emergency Medicine; PCP Nurse Practitioner Family
DX: N13.2 Hydronephrosis with renal and ureteral calculous obstruction (principal); R79.9 Abnormal finding of blood chemistry, unspecified; Z79.84 Long term (current) use of oral hypoglycemic drugs; Z79.82 Long term (current) use of aspirin; E11.9 Type 2 diabetes mellitus without complications; I10 Essential (primary) hypertension; E78.2 Mixed hyperlipidemia; Z95.0 Presence of cardiac pacemaker; Z87.891 Personal history of nicotine dependence
CPT/HCPCS: 74177; 80053; 81003; 83605; 83690; 83880; 85025; 93005; 96361; 96374; 96375; 99284; J1885; J2270; J2405; J7030; Q9967

== ENCOUNTER 2021-07-27 07:18 | Outpatient (CLI) | payer MEDICAID, SELFPAY ==
--- NOTE | 2021-07-27 07:24 | XR_ITS ---
WS: [id number] XR KUB [id number] REASON FOR EXAM: KIDNEY STONE FINDINGS: Compared to the CT scan of 07/24/2021, calculus in the lower pole of the left kidney is unchanged. The calculus in the proximal right ureter remains at about the L3-L4 level. No other significant abnormality. XR/XR KUB [id number] IMPRESSION: Left renal calculus unchanged. Right ureteral calculus unchanged.
== END 2021-07-27 07:19 | disposition home or self-care (01) ==
LOC: RAD 07:21
PROVIDERS: PCP Nurse Practitioner Family; Visit Provider Nurse Practitioner Family
DX: N20.0 Calculus of kidney (principal); N20.1 Calculus of ureter; Z20.822 Contact with and (suspected) exposure to COVID-19
CPT/HCPCS: 74018; 81003; 87635

== ENCOUNTER 2021-07-30 11:45 | Day surgery (SDC) | payer MEDICAID, SELFPAY ==
[2021-07-27 13:31] VITALS: BMI 43.7
[2021-07-30] VITALS (8 sets, daily range): BP systolic 128–152; BP diastolic 67–87; PULSE 70–77; RESP 13–22; TEMP 36.2–36.6; O2SAT 92–96
--- NOTE | 2021-07-30 11:52 | XRR_ITS ---
PROCEDURE INFORMATION: Exam: XR Abdomen Exam date and time: 07/30/2021 11:52 AM Age: 60 years old Clinical indication: Screening exam; Other: Pre op eswl; Prior surgery; Surgery type: Hernia repair; Patient HX: History--flank pain, right sided kidney stone, pre op; Additional info: Preop eswl TECHNIQUE: Imaging protocol: XR of the abdomen. Views: Frontal supine view of the abdomen. 1 View. COMPARISON: CR XR KUB [id number] 07/27/2021 7:32 AM FINDINGS: Gastrointestinal tract: Normal. No bowel dilation. Organs: A 9 mm calcification projects on the lower pole of the right kidney. A 9 mm calcification projects on the lower pole of the left kidney. Bones/joints: Unremarkable. XR/XR KUB [id number] IMPRESSION: Bilateral nephrolithiasis.
[2021-07-30 12:49] LABS: Glucose Point of Care 192 mg/dL (70-110)
[2021-07-30] MEDS: sodium chloride 0.9% 1,000 ML 30 ML IV (12:54)
--- NOTE | 2021-07-30 13:04 | ANES.PREANE2 ---
Pre-Anesthetic Assessment Pre-Anesthetic Assessment: Height/Weight: Height 1.65 m Weight 119.295 kg Temp Pulse Resp BP Pulse Ox 97.2 F L 70 17 137/80 95 07/30/21 12:20 07/30/21 12:20 07/30/21 12:20 07/30/21 12:20 07/30/21 12:20 Preop Diagnosis: Right ureteral calculus Proposed Procedure: Operation Date: 07/30/21 13:15 Proposed Procedures p Cystoscopy 61087 75340 N20.1(Right) - Keshav Henry MD s Ureteral Stent Placement(Right) - Keshav Henyr MD s ESWL(Not Applicable) - Keshav Henry MD Was Beta Radha taken within 24 hours: Yes Was Clonidine taken within 24 hours: N/A Last intake: Intake Last Liquid Date 07/30/21 Last Liquid Time 07:00 Last Solid Date 07/29/21 Last Solid Time 20:30 Social: Social History: No alcohol and No tobacco Exam: Pre-Anes Outpt Exam: alert, oriented x 3, clear to auscultation bilaterally and regular rate & rhythm Airway: Submandibular: WNL Cervical ROM: WNL MP: 2 Dentition: False Pulmonary: Pulmonary: COPD CV/HEM: CV/HEM: CHF (EF 35%) Comments: AICD/Pacer GI: GI: GERD Metabolic: Metabolic: DM, Hyperlipidemia and Morbid obesity Musc/skel: Musc/skel: Lower Back Pain Neuropsych: Neuropsych: Anxiety and Depression Anesthetic Plan: ASA status: 3 Anesthesia: General Risk of > 500 ml blood loss (7ml/kg in children): No Meds/Allergies Current Medications: Current Medications Generic Name Dose Route Start Last Admin Trade Name Freq PRN Reason Stop Dose Admin Sodium Chloride 1,000 mls @ 30 ml s/hr 07/30/21 12:30 07/30/21 12:54 Sodium Chloride 0.9% IV 07/31/21 12:29 30 mls/hr .Q24H JOSHUA Administration PFSH Anesthesia PFSH: Medical History Bipolar II disorder Cardiomyopathy Diabetes Hypertension Mixed hyperlipidemia Osteoarthritis of hands, bilateral Pacemaker Pacemaker malfunction Right ureteral calculus Surgical History H/O esophagogastroduodenoscopy (02/27/21) gastritis, duodenitis History of carpal tunnel release of both wrists History of colonoscopy (02/27/21) descending colon polyp, hemorrhoids History of permanent cardiac pacemaker placement Hx of cataract surgery Hx of shoulder surgery Family History Grandfather CAD (coronary artery disease) Brother Cancer colon cancer Diabetes Mother Diabetes Other Hypertension Rheumatoid arthritis Social History Quit status (tobacco): has quit using tobacco Year quit tobacco: 1999 Second hand smoke exposure: No Alcohol intake: former Year of sobriety/quit date alcohol: 1997 Caregiver/support person: Yes Lives independently: Yes Household members: spouse Marital status: service: No Current occupational status: disabled History of recent travel: No Current gender identity: Male Special fernando needs: No Agree to transfusion: Yes Data Anesthesia Other Labs: Laboratory Results - last 48 hr 07/30/21 12:44 POC Glucose 192 H Cardiac Studies: No Data to Display
--- NOTE | 2021-07-30 13:18 | P.OP_ITS ---
Operative Report Date of procedure: July 30, 2021 Pre-op Diagnosis: Right RENAL calculus Post-op diagnosis: same Procedure Done: 1. Cystoscopy with right ureteral stent 2. Right renal extracorporeal shockwave lithotripsy Implants: 6 Senegalese by 26 cm double-pigtail stent without string Pathology: none sent Surgeon: Carl Anesthesia: General Estimated blood loss: None Urine output: Not measured Complications: None Findings: 1. The stone was easily identified in the area of the right lower pole/renal pelvis with biplanar fluoroscopy. 2. 2500 shocks were administered to the stone with good change 3. 6 Senegalese by 26 cm double-pigtail stent was left indwelling at the completion of the procedure. Condition: stable Disposition: PACU Brief History: Amrik is a very pleasant 60-year-old white male with a history of recurrent urolithiasis. He has been known to have a right and a left renal calculus that have been observed over time until recently he developed increasing right renal colic and was found to have the right lower pole stone now in the proximal ureter with obstructive changes. Follow-up KUB showed the stone persisting in that area without any evidence of progression and when conversation regarding treatment options including further conservative management, endoscopy, ESWL were reviewed he elected ESWL with stent. Interestingly on today's preoperative KUB the stone had migrated back into the right lower pole. We discussed the option of holding and continuing observing but based on the fact that the stone had been mobile and that it could very well happen again he elected to proceed with intervention. Procedure: After routine preoperative evaluation examination and obtaining of informed consent he was taken to the operating suite on 07/30/2021 where general anesthesia was administered without difficulty after appropriate timeout was performed, SCDs confirmed to be functioning, preoperative antibiotics admi nistered, beta-alex protocol confirmed. Prepped and draped in usual sterile fashion in dorsolithotomy position paying careful attention to avoiding pressure points. 21 Senegalese cystoscope with 30 degree lens was introduced into the urethra meatus and advanced to the bladder to videoscopy. Bladder was systematically examined and found to be within normal limits. Flexible tip guidewire was then advanced up the right ureter without difficulty curling in the area of the upper pole calyx and a 6 Sen[place]e by 26 cm double- pigtail stent was advanced over the guidewire through the cystoscope into appr opriate position as confirmed via fluoroscopy and cystoscopy. The bladder was drained and he was then repositioned in supine position on the Dornier unit. The stone located in the right lower pole/renal pelvis was easily identified with biplanar fluoroscopy and the focal point brought onto the stone. Shockwave was initiated at a rate of 60 and intensity of 1 with advancement in intensity of 4. After about 300 shocks a several minute pause was conducted. Total of 2500 shocks were administered with good change. The rate was increased as change occurred. Tolerated the procedure well without complications and was awakened in the operating room and returned to the recovery room in stable condition. PLANS: 1. Dissipate discharge from outpatient surgery 2. Follow-up in 1 to 2 weeks with a KUB first for decision regarding stent removal or not
--- NOTE | 2021-07-30 13:21 | W.PM.OPSUD ---
Surgery/Procedure H&P Update DATE OF PROCEDURE: July 30, 2021 DATE H&P PERFORMED: 07/27/21 H&P UPDATE INFORMATION: I have reviewed H&P completed within last 30 days, I have examined patient prior to procedure, Changes to prior documentation as noted here and H&P is in [facility] EMR on date indicated CHANGES TO PREVIOUS DOCUMENTATION: The stone that had been located in the right proximal ureter had migrated back to the right lower pole/renal pelvis. He still wanted to proceed with intervention. No additional changes noted. PREOP DIAGNOSIS: Right RENAL calculus PLANNED PROCEDURE: Operation Date: 07/30/21 13:15 Proposed Procedures p Cystoscopy 55472 21739 N20.1(Right) - Keshav Henry MD s Ureteral Stent Placement(Right) - Keshav Henry MD s ESWL(Not Applicable) - Keshav Henry MD
[2021-07-30] MEDS: levofloxacin-dextrose 5 % 500 MG/100 ML PREMIX 100 MG IV (13:33)
--- NOTE | 2021-07-30 15:29 | ANE.PACU2 ---
Inpatient post-anesthesia follow up: Airway intact: Yes Vital signs: Temperature 97.2 F Pulse Rate 76 Respiratory Rate 15 Blood Pressure 131/67 Pulse Oximetry 92 Oxygen Delivery Me thod Room Air Oxygen Flow Rate 8 Fraction of Inspir ed Oxygen Hydration adequate: Yes Nausea and vomiting: No Pain level: 2 Mental status: Baseline
== END 2021-07-30 15:50 | disposition home or self-care (01) ==
PROVIDERS: PCP Nurse Practitioner Family; Visit Provider Urology
PROC: 0TJB8ZZ Inspection of Bladder, Via Natural or Artificial Opening Endoscopic (ICD-10-PCS; CPT 52000; principal; 2021-07-30 13:05)
PROC: (CPT 50605; 2021-07-30 13:05)
PROC: (CPT 50590; 2021-07-30 13:05)
DX: N20.0 Calculus of kidney (principal); E11.65 Type 2 diabetes mellitus with hyperglycemia; J44.9 Chronic obstructive pulmonary disease, unspecified; I50.9 Heart failure, unspecified; K21.9 Gastro-esophageal reflux disease without esophagitis; E11.9 Type 2 diabetes mellitus without complications; E66.01 Morbid (severe) obesity due to excess calories; Z68.41 Body mass index [BMI] 40.0-44.9, adult; F41.9 Anxiety disorder, unspecified; F32.9 Major depressive disorder, single episode, unspecified; Z95.0 Presence of cardiac pacemaker; E78.2 Mixed hyperlipidemia; Z87.891 Personal history of nicotine dependence
CPT/HCPCS: 50590; 52332; 36416; 74018; 82962; C2625; J1100; J1956; J2405; J2704; J3010; J3490; J7030

== ENCOUNTER → 2021-08-01 08:40 | Outpatient (BNVA) | payer MEDICAID, SELFPAY | PROVIDERS: PCP Nurse Practitioner Family; Visit Provider Nurse Practitioner Family | DX: E11.42 Type 2 diabetes mellitus with diabetic polyneuropathy (principal); E11.65 Type 2 diabetes mellitus with hyperglycemia; J44.9 Chronic obstructive pulmonary disease, unspecified | CPT/HCPCS: 80053; 80061; 83036; 84443; 84550; 85025 ==

== ENCOUNTER 2021-08-10 08:20 | Outpatient (CLI) | payer MEDICAID, SELFPAY ==
--- NOTE | 2021-08-10 08:30 | XR_ITS ---
WS: [id number] Exam: XR KUB [id number] Date/Time of Exam: 08/10/2021 8:27 AM Reason For Exam: NEPHROLITHIASIS Comparison 07/30/2021. A right pigtail ureteral catheter has been placed and appears to be in satisfactory location. A 1 cm calcification is seen over the lower pole the left kidney suggesting renal stone. No bowel obstructio n or free air. No sign of organ enlargement. A 4 mm metallic density superimposes the left iliac wing and may represent a soft tissue foreign body. XR/XR KUB [id number] IMPRESSION: 1. Right-sided ureteral catheter in place appearing to be in appropriate locati on. 2. 1 cm calcifications superimposing the lower pole left kidney which may repre sent a renal stone. No acute abdominal process.
== END 2021-08-10 08:21 | disposition home or self-care (01) ==
LOC: RAD 08:24
PROVIDERS: PCP Nurse Practitioner Family; Visit Provider Urology
DX: N20.0 Calculus of kidney (principal); Z96.0 Presence of urogenital implants
CPT/HCPCS: 74018; 81003

== ENCOUNTER 2021-08-21 11:26 | Outpatient (CLI) | payer MEDICAID, SELFPAY ==
--- NOTE | 2021-08-21 11:45 | CT_ITS ---
WS: [id number] CT CERVICAL SPINE TECHNIQUE: Noncontrast CT of the cervical spine with coronal and sagittal reformatted images. CLINICAL INFORMATION: M54.2 - Cervicalgia COMPARISON: 2018 DLP: 1962.[address] scans at [facility] use at least one of these dose optimization techniques: automated e xposure control; mA and/or kV adjustment per patient size (includes targeted exams where dose is matc hed to clinical indication); or iterative reconstruction. FINDINGS: Straightening of the normal cervical lordosis. Anterior hypertrophic changes C4-C6. Normal C1-2 artic ulation. C2-C3: Tiny shallow central disc bulging. Spinal canal and foramen are patent. Mild facet arthropathy . C3-C4: Disc osteophyte complex with endplate ridging. Mild central canal stenosis. Mild to moderate r ight and mild left bony foraminal narrowing with moderate right facet arthropathy. This is progressed compared to previous. C4-C5: Tiny central disc bulging. Mild central canal stenosis. Foramen are patent. Moderate facet art hropathy. C5-C6: Left pericentral disc osteophyte protrusion. Mild central canal stenosis. Foramen are patent. Moderate facet arthropathy. C6-C7: Disc osteophyte complex with endplate ridging. Moderate facet arthropathy. Mild central canal stenosis. Foramen are patent. Moderate facet arthropathy. C7-T1: No significant disc bulging. Spinal canal and foramen are patent. Visualized posterior nasopharynx: Normal. Prevertebral soft tissues: Normal. Chronic infarct right cerebellum. CT/CT cervical spin wo con* [id number] IMPRESSION: 1. Straightening of the normal cervical lordosis. Anterior hypertrophic change s C4-C6. 2. Mild central canal stenosis C3-C4, C4-5 C5-C6 and C6-C7 with small disc ost eophyte protrusions and endplate ridging. This is stable compared to 2018. 3. Mild to moderate right C3-C4 bony foraminal narrowing with moderate right f acet arthropathy new from previous 4. Mild left C3-C4 bony foraminal narrowing progressed compared to previous. 5. Moderate facet arthropathy C4-C6.
== END 2021-08-21 11:27 | disposition home or self-care (01) ==
PROVIDERS: PCP Nurse Practitioner Family; Visit Provider Nurse Practitioner Family
DX: M47.812 Spondylosis without myelopathy or radiculopathy, cervical region (principal); M48.00 Spinal stenosis, site unspecified; M25.78 Osteophyte, vertebrae
CPT/HCPCS: 72125

== ENCOUNTER → 2021-09-11 15:10 | Outpatient (BNVA) | payer MEDICAID, SELFPAY | PROVIDERS: PCP Nurse Practitioner Family; Referring Provider Nurse Practitioner Family; Visit Provider Orthopaedic Surgery | DX: M54.2 Cervicalgia (principal); M47.812 Spondylosis without myelopathy or radiculopathy, cervical region | CPT/HCPCS: 72050 ==

== ENCOUNTER → 2021-09-24 09:32 | Outpatient (BNVA) | payer MEDICAID, SELFPAY | PROVIDERS: PCP Nurse Practitioner Family; Referring Provider Orthopaedic Surgery; Visit Provider Anesthesiology Pain Medicine | DX: G89.29 Other chronic pain (principal); M54.2 Cervicalgia; M79.601 Pain in right arm; Z79.899 Other long term (current) drug therapy; Z87.891 Personal history of nicotine dependence | CPT/HCPCS: 99204 ==

== ENCOUNTER → 2021-09-26 09:24 | Outpatient (BNVA) | payer MEDICAID, SELFPAY | PROVIDERS: PCP Nurse Practitioner Family; Visit Provider Nurse Practitioner | DX: F31.81 Bipolar II disorder (principal) | CPT/HCPCS: 99214 ==

== ENCOUNTER → 2021-10-08 13:07 | Outpatient (BNVA) | payer MEDICAID, SELFPAY | PROVIDERS: PCP Nurse Practitioner Family; Visit Provider Anesthesiology Pain Medicine | DX: Z01.812 Encounter for preprocedural laboratory examination (principal); E11.65 Type 2 diabetes mellitus with hyperglycemia; M54.12 Radiculopathy, cervical region; Z87.891 Personal history of nicotine dependence | CPT/HCPCS: 36416; 62321; 82962; J1100 ==

== ENCOUNTER → 2021-10-12 16:15 | Outpatient (BNVA) | payer MEDICAID, SELFPAY | PROVIDERS: PCP Nurse Practitioner Family; Visit Provider Nurse Practitioner Family | DX: Z20.822 Contact with and (suspected) exposure to COVID-19 (principal); R05.8 Other specified cough; J40 Bronchitis, not specified as acute or chronic | CPT/HCPCS: 71046; 87635 ==

== ENCOUNTER → 2021-10-22 10:07 | Outpatient (BNVA) | payer MEDICAID, SELFPAY | PROVIDERS: PCP Nurse Practitioner Family; Visit Provider Anesthesiology Pain Medicine | DX: M54.2 Cervicalgia (principal); M79.601 Pain in right arm; Z87.891 Personal history of nicotine dependence | CPT/HCPCS: 99213 ==

== ENCOUNTER → 2021-11-01 11:16 | Outpatient (BNVA) | payer MEDICAID, SELFPAY | PROVIDERS: PCP Nurse Practitioner Family; Visit Provider Nurse Practitioner Family | DX: E78.2 Mixed hyperlipidemia (principal); E11.65 Type 2 diabetes mellitus with hyperglycemia | CPT/HCPCS: 80053; 80061; 83036; 85025 ==

== ENCOUNTER 2021-11-16 20:26 | Emergency (ER) | payer MEDICAID, SELFPAY ==
[2021-11-16 20:34] VITALS: BP 113/81; PULSE 89; RESP 16; TEMP 36.7; O2SAT 96; BMI 41.8
--- NOTE | 2021-11-16 20:54 | W.ED.GIBLEED ---
HPI - GI Bleed General: Chief complaint: General Medical Stated complaint: Hemrroids Time Seen by Provider: 11/16/21 20:52 PFSH ED PFSH: Medical History Bipolar II disorder Cardiomyopathy Diabetes Hypertension Mixed hyperlipidemia Osteoarthritis of hands, bilateral Pacemaker Pacemaker malfunction Psychiatric care Right ureteral calculus Surgical History H/O esophagogastroduodenoscopy (02/27/21) gastritis, duodenitis History of carpal tunnel release of both wrists History of colonoscopy (02/27/21) descending colon polyp, hemorrhoids History of permanent cardiac pacemaker placement Hx of cataract surgery Hx of shoulder surgery Family History Grandfather CAD (coronary artery disease) Brother Cancer colon cancer Diabetes Mother Diabetes Other Hypertension Rheumatoid arthritis Social History Smoking and tobacco status: former smoker Quit status (tobacco): has quit using tobacco Year quit tobacco: 1999 Second hand smoke exposure: No Alcohol intake: former Year of sobriety/quit date alcohol: 1997 Caregiver/support person: Yes Lives independently: Yes Household members: spouse Marital status: service: No Current occupational status: disabled History of recent travel: No Current gender identity: Male Special fernando needs: No Agree to transfusion: Yes Course Vital Signs: Vital signs: Vital Signs Temperature 98.1 F 11/16/21 20:34 Pulse Rate 89 11/16/21 20:34 Respiratory Rate 16 11/16/21 20:34 Blood Pressure 113/81 11/16/21 20:34 Pulse Oximetry 96 11/16/21 20:34 Discharge Plan Discharge Prescriptions: No Action aspirin [Aspir-Sagrario] 325 mg tablet,delayed release (DR/EC) 325 mg PO DAILY RF: 0 multivitamin Capsule 1 cap PO DAILY RF: 0 tizanidine 4 mg tablet 4 mg PO BID PRN (Reason: muscle spasticity) Qty: 60 RF: 0 gabapentin 300 mg capsule 300 mg PO TID Qty: 90 RF: 0 omega-3 fatty acids [Fish Oil Concentrate] 1,000 mg capsule 2,000 mg PO DAILY RF: 0 Entresto 49-51 mg tablet 1 tab PO BID 30 Days Qty: 60 RF: 3 budesonide-formoterol [Symbicort] 160-4.5 mcg/actuation HFA aerosol inhaler 2 puff inhalation BID Qty: 10.2 RF: 5 doxycycline hyclate 100 mg capsule 100 mg PO BID Qty: 20 RF: 0 (DME) blood-glucose meter [Blood Glucose Monitoring] Kit See Rx Instructions .ROUTE .MEDSUPPLY Qty: 1 RF: 0 (DME) Blood Glucose Test Strip See Rx Instructions .ROUTE .MEDSUPPLY Qty: 100 RF: 11 furosemide 20 mg tablet 20 mg PO DAILY Qty: 90 RF: 3 carvedilol 25 mg tablet 25 mg PO BID Qty: 180 RF: 3 spironolactone 25 mg tablet 25 mg PO DAILY Qty: 90 RF: 3 potassium citrate 10 mEq (1,080 mg) tablet extended release 20 meq PO BID Qty: 120 RF: 12 albuterol sulfate [ProAir HFA] 90 mcg/actuation HFA aerosol inhaler 2 puff INHALATION Q6H PRN (Reason: shortness of breath or wheezing) Qty: 18 RF: 2 ibuprofen 800 mg tablet 800 mg PO BID PRN (Reason: Pain) Qty: 60 RF: 2 rosuvastatin 20 mg tablet 20 mg PO DAILY Qty: 90 RF: 1 allopurinol 300 mg tablet 300 mg PO DAILY Qty: 90 RF: 1 Trulicity 0.75 mg/0.5 mL pen injector 0.75 mg SUBCUT .weekly Qty: 2 RF: 2 glipizide 10 mg tablet extended release 24hr See Rx Instructions .ROUTE .COMPLEX Qty: 30 RF: 3 sertraline 100 mg tablet 100 mg PO DAILY Qty: 30 RF: 2 cetirizine 10 mg tablet 10 mg PO DAILY RF: 0 fluticasone propionate 50 mcg/actuation spray,suspension 2 spray intranasal DAILY RF: 0 omeprazole 40 mg capsule,delayed release(DR/EC) 40 mg PO DAILY Qty: 90 RF: 1 metformin 500 mg tablet extended release 24 hr 2,000 mg PO DAILY Qty: 360 RF: 1 fenofibrate 160 mg tablet 160 mg PO DAILY Qty: 90 RF: 1 Invokana 300 mg tablet 300 mg PO DAILY Qty: 90 RF: 1 Coding Level of Care Code ED Reconstructive Dentist for Ck Crooks
--- NOTE | 2021-11-16 21:04 | ED_ITS ---
HPI - General Adult General: Chief complaint: General Medical Stated complaint: Hemrroids Time Seen by Provider: 11/16/21 20:52 Source: patient Mode of arrival: ambulatory Limitations: no limitations History of Present Illness: HPI narrative: Patient is a nice 61-year-old male who presents to ED today for evaluation of hemorrhoids. Patient states he began noticing symptoms approximately 5 days ago. He has been treating with some sort of OTC ointment without much relief. He reports a history of hemorrhoids several years ago. He is not complaining of any rectal bleeding or severe itching. His main concern is feeling uncomfortable and painful defecation. He does state his stools have been soft. Onset (ago): day(s) Location: buttocks (rectum) Pain Consistency: constant Relieving factors: none Exacerbating factors: none Associated symptoms: Reports no associated symptoms; Deny malaise, nausea or vomiting Treatments prior to arrival: other (OTC hemorrhoid ointment) Review of Systems Const: Denies: fever(s), chills, body aches, fatigue or malaise GI: Reports: rectal pain; Denies: abdominal pain, nausea, vomiting, diarrhea, hematochezia or melena PFSH ED PFSH: Medical History Bipolar II disorder Cardiomyopathy Diabetes Hypertension Mixed hyperlipidemia Osteoarthritis of hands, bilateral Pacemaker Pacemaker malfunction Psychiatric care Right ureteral calculus Surgical History H/O esophagogastroduodenoscopy (02/27/21) gastritis, duodenitis History of carpal tunnel release of both wrists History of colonoscopy (02/27/21) descending colon polyp, hemorrhoids History of permanent cardiac pacemaker placement Hx of cataract surgery Hx of shoulder surgery Family History Grandfather CAD (coronary artery disease) Brother Cancer colon cancer Diabetes Mother Diabetes Other Hypertension Rheumatoid arthritis Social History Smoking and tobacco status: former smoker Quit status (tobacco): has quit using tobacco Year quit tobacco: 1999 Second hand smoke exposure: No Alcohol intake: former Year of sobriety/quit date alcohol: 1997 Caregiver/support person: Yes Lives independently: Yes Household members: spouse Marital status: service: No Current occupational status: disabled History of recent travel: No Current gender identity: Male Special fernando needs: No Agree to transfusion: Yes Physical Exam Const: COMMON NORMALS: no acute distress, patient oriented x3, no limitations and alert GENERAL APPEARANCE: cooperative NUTRITIONAL APPEARANCE: obese morbidly obese ORIENTATION/CONSCIOUSNESS: Yes awake, Yes oriented to person, Yes oriented to place and Yes oriented to time HENMT: COMMON NORMALS: normocephalic and atraumatic HEAD & SCALP: normocephalic and atraumatic Resp: COMMON NORMALS: normal respiratory effort and clear to auscultation bilaterally AUSCULTATION: clear to auscultation bilaterally Cardio: COMMON NORMALS: regular rate and regular rhythm RATE: regular rate RHYTHM: regular rhythm GI: COMMON NORMALS: Normal to inspection, nondistended, normoactive bowel sounds present, Soft to palpation, non-tender, No hepatosplenomegaly present and no masses PALPATION: Yes Soft to palpation and Yes No hepatosplenomegaly present RECTAL EXAM: Yes normal sphincter tone and Yes hemorrhoids (pt has one prolapsed internal hemorrhoid; no thrombosed hemorrhoid noted) Neuro: COMMON NORMALS: patient oriented x3 SENSORIUM/ORIENTATION: Yes alert, Yes oriented to person, Yes oriented to place and Yes oriented to time Course Vital Signs: Vital signs: Vital Signs Temperature 98.1 F 11/16/21 20:34 Pulse Rate 89 11/16/21 20:34 Respiratory Rate 16 11/16/21 20:34 Blood Pressure 113/81 11/16/21 20:34 Pulse Oximetry 96 11/16/21 20:34 MDM - General Adult MDM Narrative: Medical decision making narrative: Will treat with meds and have patient follow up with general surgery for further evaluation/treatment in case symptoms do not improve. Return to ED precautions verbally given to patient. Discharge Plan Discharge Patient Disposition: Home Clinical Impression: Prolapsed internal hemorrhoids Condition: Stable Prescriptions: New Anusol-HC 25 mg suppository 25 mg [place] BID 6 Days Qty: 12 RF: 0 Preparation H Rapid Rlf-Lidocn 5-0.25-14.4-15 % cream 1 applic topical BID PRN (Reason: hemorrhoids) Qty: 28 RF: 0 No Action aspirin [Aspir-Sagrario] 325 mg tablet,delayed release (DR/EC) 325 mg PO DAILY RF: 0 multivitamin Capsule 1 cap PO DAILY RF: 0 tizanidine 4 mg tablet 4 mg PO BID PRN (Reason: muscle spasticity) Qty: 60 RF: 0 gabapentin 300 mg capsule 300 mg PO TID Qty: 90 RF: 0 omega-3 fatty acids [Fish Oil Concentrate] 1,000 mg capsule 2,000 mg PO DAILY RF: 0 Entresto 49-51 mg tablet 1 tab PO BID 30 Days Qty: 60 RF: 3 budesonide-formoterol [Symbicort] 160-4.5 mcg/actuation HFA aerosol inhaler 2 puff inhalation BID Qty: 10.2 RF: 5 doxycycline hyclate 100 mg capsule 100 mg PO BID Qty: 20 RF: 0 (DME) blood-glucose meter [Blood Glucose Monitoring] Kit See Rx Instructions .ROUTE .MEDSUPPLY Qty: 1 RF: 0 (DME) Blood Glucose Test Strip See Rx Instructions .ROUTE .MEDSUPPLY Qty: 100 RF: 11 furosemide 20 mg tablet 20 mg PO DAILY Qty: 90 RF: 3 carvedilol 25 mg tablet 25 mg PO BID Qty: 180 RF: 3 spironolactone 25 mg tablet 25 mg PO DAILY Qty: 90 RF: 3 potassium citrate 10 mEq (1,080 mg) tablet extended release 20 meq PO BID Qty: 120 RF: 12 albuterol sulfate [ProAir HFA] 90 mcg/actuation HFA aerosol inhaler 2 puff INHALATION Q6H PRN (Reason: shortness of breath or wheezing) Qty: 18 RF: 2 ibuprofen 800 mg tablet 800 mg PO BID PRN (Reason: Pain) Qty: 60 RF: 2 rosuvastatin 20 mg tablet 20 mg PO DAILY Qty: 90 RF: 1 allopurinol 300 mg tablet 300 mg PO DAILY Qty: 90 RF: 1 Trulicity 0.75 mg/0.5 mL pen injector 0.75 mg SUBCUT .weekly Qty: 2 RF: 2 glipizide 10 mg tablet extended release 24hr See Rx Instructions .ROUTE .COMPLEX Qty: 30 RF: 3 sertraline 100 mg tablet 100 mg PO DAILY Qty: 30 RF: 2 cetirizine 10 mg tablet 10 mg PO DAILY RF: 0 fluticasone propionate 50 mcg/actuation spray,suspension 2 spray intranasal DAILY RF: 0 omeprazole 40 mg capsule,delayed release(DR/EC) 40 mg PO DAILY Qty: 90 RF: 1 metformin 500 mg tablet extended release 24 hr 2,000 mg PO DAILY Qty: 360 RF: 1 fenofibrate 160 mg tablet 160 mg PO DAILY Qty: 90 RF: 1 Invokana 300 mg tablet 300 mg PO DAILY Qty: 90 RF: 1 Discharge Orders: Discharge ED (Routine); Ordered 11/16/21 Ordered By: Jeannette Sanchez Patient Instructions: Hemorrhoids, Hemorrhoids (ED) Activity Restrictions/Additional Instructions: In addition to prescribed medications please begin taking the stool softeners twice daily to avoid straining with defecation. Case management should contact you shortly to set you up with your follow-up general surgery appointment. Coding Level of Care Code ED Fuel Cell Repairer for Ck Crooks
[2021-11-16 21:16] VITALS: BP 134/78; PULSE 88; RESP 18; O2SAT 98
--- NOTE | 2021-11-18 14:25 | DCPLANNER ---
senior facilities manager had message to schedule a follow up appointment for patient with general surgery. senior facilities manager emailed patients information to Kandice Porter and Angelica at [facility] General Surgery / ENT clinic. Patients information will be printed and reviewed. Clinic will call patient with appointment information.
--- NOTE | 2021-11-21 07:50 | DCPLANNER ---
Addendum entered by Mayte Stafford 12/14/21 10:08: Patient had a follow up appointment scheduled for 11.29.21 with general surgery - patient did attend appointment. Original Note: Patient has a follow up appointment scheduled for November at 1:[address] Diaz at [facility] General Surgery. Clinic will call patient with appointment information.
== END 2021-11-16 21:17 | disposition home or self-care (01) ==
PROVIDERS: Emergency Provider Physician Assistant
DX: K64.8 Other hemorrhoids (principal); Z79.84 Long term (current) use of oral hypoglycemic drugs; Z79.82 Long term (current) use of aspirin; E11.9 Type 2 diabetes mellitus without complications; I10 Essential (primary) hypertension; E78.2 Mixed hyperlipidemia; Z95.0 Presence of cardiac pacemaker; Z87.891 Personal history of nicotine dependence
CPT/HCPCS: 99281

== ENCOUNTER → 2021-11-29 14:06 | Outpatient (BNVA) | payer MEDICAID, SELFPAY | PROVIDERS: Referring Provider Physician Assistant; Visit Provider Surgery | DX: Z20.822 Contact with and (suspected) exposure to COVID-19 (principal); K64.9 Unspecified hemorrhoids | CPT/HCPCS: 87635 ==

== ENCOUNTER 2021-12-03 09:00 | Day surgery (SDC) | payer MEDICAID, SELFPAY ==
[2021-11-30 12:25] VITALS: BMI 43.2
[2021-12-03] VITALS (9 sets, daily range): BP systolic 92–127; BP diastolic 30–79; PULSE 52–83; RESP 12–22; TEMP 36.4–36.7; O2SAT 90–96
[2021-12-03 09:50] LABS: Glucose Point of Care 116 mg/dL (70-110)
[2021-12-03] MEDS: acetaminophen 1,000 MG/100 ML PIGGYBACK 400 MG IV (09:55)
[2021-12-03] MEDS: sodium chloride 0.9% 1,000 ML 30 ML IV (09:55)
--- NOTE | 2021-12-03 10:10 | ANES.PREANE2 ---
Pre-Anesthetic Assessment Pre-Anesthetic Assessment: Height/Weight: Height 1.65 m Weight 117.934 kg Temp Pulse Resp BP Pulse Ox 97.8 F 82 16 113/70 96 12/03/21 09:17 12/03/21 09:17 12/03/21 09:17 12/03/21 09:17 12/03/21 09:17 Preop Diagnosis: Symptomatic hemorrhoid Proposed Procedure: Operation Date: 12/03/21 10:40 Proposed Procedures p Exam Under Anesthesia(Not Applicable) - Munir Diaz MD s POssible Hemorroidectomy 90799/00536/k64.9(Not Applicable) - Munir Diaz MD Was Beta Radha taken within 24 hours: Yes Was Clonidine taken within 24 hours: N/A Last intake: Intake Last Liquid Date 12/02/21 Last Liquid Time 21:00 Last Solid Date 12/02/21 Last Solid Time 19:00 Social: Social History: No alcohol and No tobacco Exam: Pre-Anes Outpt Exam: alert, oriented x 3, clear to auscultation bilaterally and regular rate & rhythm Airway: Submandibular: WNL Cervical ROM: Other (Limited in extension ) MP: 2 Dentition: False Pulmonary: Pulmonary: COPD and RIOS Comments: CXR 10/30 XR/XR chest 2V* [id number] IMPRESSION: 1. Cardiomegaly. 2. Mild pulmonary vascular congestion. CV/HEM: CV/HEM: CAD and CHF Comments: ICD/Pacemaker for prophylaxis EF per cardiology note 30-35% Hx of CP prior to replacement of ICD now able to go up a flight of stairs w/o CP EKG 07/24 nterpretive Statements ELECTRONIC ATRIAL PACEMAKER ELECTRONIC VENTRICULAR PACEMAKER Premature ventricular contractions ABNORMAL RHYTHM ECG Compared to ECG 04/22/2020 17:35:35 No significant changes Electronically Signed On 07-24-2021 23:34:59 CDT by Joe Holder M.D. [email or web address] GI: GI: GERD Metabolic: Metabolic: DM and Morbid obesity Musc/skel: Musc/skel: OA/DJD Comments: Cervical stenosis Neuropsych: Neuropsych: Bipolar Comments: Cervical stenosis CT/CT cervical spin wo con* [id number] IMPRESSION: 1. Straightening of the normal cervical lordosis. Anterior hypertrophic changes C4-C6. 2. Mild central canal stenosis C3-C4, C4-5 C5-C6 and C6-C7 with small disc osteophyte protrusions and endplate ridging. This is stable compared to 2018. 3. Mild to moderate right C3-C4 bony foraminal narrowing with moderate right facet arthropathy new from previous 4. Mild left C3-C4 bony foraminal narrowing progressed compared to previous. 5. Moderate facet arthropathy C4-C6. Anesthetic Plan: ASA status: 4 (Morbidly obese male w/ non ischemic cardiomyopathy with ICD/pacemaker, diabetes, cervical stenosis, former substance abuse. ) Anesthesia: General Risk of > 500 ml blood loss (7ml/kg in children): No Medications/Allergies Current Medications: Current Medications Generic Name Dose Route Start Last Admin Trade Name Freq PRN Reason Stop Dose Admin Sodium Chloride 1,000 mls @ 30 ml s/hr 12/03/21 09:15 12/03/21 09:55 Sodium Chloride 0.9% IV 12/04/21 09:14 30 mls/hr .Q24H JOSHUA Administration PFSH Anesthesia PFSH: Medical History Bipolar II disorder Cardiomyopathy Diabetes Hypertension Mixed hyperlipidemia Osteoarthritis of hands, bilateral Pacemaker Pacemaker malfunction Psychiatric care Right ureteral calculus Surgical History H/O esophagogastroduodenoscopy (02/27/21) gastritis, duodenitis History of carpal tunnel release of both wrists History of colonoscopy (02/27/21) descending colon polyp, hemorrhoids History of permanent cardiac pacemaker placement Hx of cataract surgery Hx of shoulder surgery Family History Grandfather CAD (coronary artery disease) Brother Cancer colon cancer Diabetes Mother Diabetes Other Hypertension Rheumatoid arthritis Social History Smoking and tobacco status: former smoker Quit status (tobacco): has quit using tobacco Year quit tobacco: 1999 Second hand smoke exposure: No Alcohol intake: former Year of sobriety/quit date alcohol: 1997 Caregiver/support person: Yes Lives independently: Yes Household members: spouse Marital status: service: No Current occupational status: disabled History of recent travel: No Current gender identity: Male Special fernando needs: No Agree to transfusion: Yes Data Anesthesia Other Labs: Laboratory Results - last 48 hr 12/03/21 09:47 POC Glucose 116 H Cardiac Studies: No Data to Display
--- NOTE | 2021-12-03 10:14 | W.PM.OPSUD ---
Surgery/Procedure H&P Update DATE OF PROCEDURE: December 03, 2021 DATE H&P PERFORMED: 11/29/21 H&P UPDATE INFORMATION: I have reviewed H&P completed within last 30 days, I have examined patient prior to procedure and No changes to prior documentation PREOP DIAGNOSIS: Symptomatic hemorrhoid PRIMARY INDICATION FOR PROCEDURE: The same PLANNED PROCEDURE: Operation Date: 12/03/21 10:40 Proposed Procedures p Exam Under Anesthesia(Not Applicable) - Munir Diaz MD s POssible Hemorroidectomy 59513/83039/k64.9(Not Applicable) - Munir Diaz MD
[2021-12-03] MEDS: metroNIDAZOLE IV 500 MG/100 ML PREMIX 100 MG IV (10:20)
[2021-12-03] MEDS: ciprofloxacin 400 MG/200 ML PREMIX 200 MG IV (10:45)
--- NOTE | 2021-12-03 11:01 | PM.OP ---
Operative Report Date of procedure: December 03, 2021 Pre-op Diagnosis: Symptomatic hemorrhoid Post-op diagnosis: same Post-op Findings: Right lower lateral internal and external hemorrhoid Procedure Done: 1-Examination under anesthesia 2-Hemorrhoidectomy Implants: Surgicel and Xeroform Specimens removed/disposition: Right lower lateral hemorrhoid Surgeon: Munir Diaz Creative Services Manager: commercial service technician barak Ruth Anesthesia: General (migratory game bird biologist Will Smart) Estimated blood loss (mL): 5 Condition: stable Disposition: same day Procedure: Patient was identified in the holding area and was taken back to the operating room, which He was first placed in supine position got intubated by anesthesia, prophylactic IV antibiotics were given per protocol,Time-out was done verifying the patient's name/date of /planned procedure and destination after the procedure, all were in agreement. Patient was placed in left lateral position were all pressure points were padded, Prep and drape was done thereafter under the usual sterile technique,started by pudendal nerve block bilaterally , injecting Exparel , guided by the examining finger towards the ischial spine bilaterally, followed by that digital rectal examination showed no masses were appreciated or bleeding,found to have induration at the right lower lateral hemorrhoid. Anoscope was then introduced I was able to identify the internal/external right lower lateral , I placed a wet 4 x 4 inside the anal canal to prevent stools from encroaching on the wound site, that was taken out at the end of the procedure. I did apply a hemostat at the origin of the hemorrhoidal tissue, onto the right lower lateral hemorrhoid,using harmonic scalpel device for dissection safeguarding the external anal sphincter after that I was able to deliver the specimen to the circulating nurse hemostasis was achieved , and running 2-0 chromic catgut suture was applied to approximate the edges of the hemorrhoidectomy site, that was done after thorough irrigation of the wound with warm normal saline . At that point after removal of the 4 x 4'sx1, I applied a piece of Xeroform impregnated lidocaine 2% jelly at the site of the wound and a piece of Surgicel both were rolled up as a Cigar like and and 2-0 silk stitch was applied at the end that faces the exit of the anus as it will be easier to pull out later on, followed by 4 x 4 application and ABD .,a surgical pants was then placed to hold the dressing in place. Count was completed at the end of the procedure, patient was then extubated and was taken to the recovery room in stable condition I was present for the whole entire procedure
--- NOTE | 2021-12-03 14:49 | ANE.PACU2 ---
Inpatient post-anesthesia follow up: Airway intact: Yes Vital signs: Temperature 98.0 F Pulse Rate 52 Respiratory Rate 16 Blood Pressure 113/66 Pulse Oximetry 95 Oxygen Delivery Me thod Room Air Oxygen Flow Rate 5 Fraction of Inspir ed Oxygen Hydration adequate: Yes Nausea and vomiting: No Pain level: 1 Mental status: Baseline
== END 2021-12-03 12:35 | disposition home or self-care (01) ==
PROVIDERS: Visit Provider Surgery
PROC: (CPT 46260; principal; 2021-12-03 10:30)
PROC: (CPT 46260; 2021-12-03 10:30)
DX: K64.8 Other hemorrhoids (principal); J44.9 Chronic obstructive pulmonary disease, unspecified; I25.10 Atherosclerotic heart disease of native coronary artery without angina pectoris; I11.0 Hypertensive heart disease with heart failure; I50.9 Heart failure, unspecified; Z95.0 Presence of cardiac pacemaker; E11.9 Type 2 diabetes mellitus without complications; E66.01 Morbid (severe) obesity due to excess calories; Z68.41 Body mass index [BMI] 40.0-44.9, adult; E78.2 Mixed hyperlipidemia; Z87.891 Personal history of nicotine dependence
CPT/HCPCS: 46260; 36416; 82962; 88304; 96365; C9290; J0744; J2405; J2704; J3010; J3490; J7030; S0030

== ENCOUNTER → 2021-12-24 11:08 | Outpatient (BNVA) | payer MEDICAID, SELFPAY | PROVIDERS: Visit Provider Nurse Practitioner Family | DX: M25.512 Pain in left shoulder (principal); S49.90XA Unspecified injury of shoulder and upper arm, unspecified arm, initial encounter; W19.XXXA Unspecified fall, initial encounter | CPT/HCPCS: 73030 ==

== ENCOUNTER → 2021-12-26 09:19 | Outpatient (BNVA) | payer MEDICAID, SELFPAY | PROVIDERS: Referring Provider Nurse Practitioner Family; Visit Provider Specialist | DX: M25.512 Pain in left shoulder (principal); M71.9 Bursopathy, unspecified | CPT/HCPCS: 73030 ==

== ENCOUNTER → 2021-12-27 08:06 | Outpatient (BNVA) | payer MEDICAID, SELFPAY | PROVIDERS: Visit Provider Nurse Practitioner | DX: F31.81 Bipolar II disorder (principal) | CPT/HCPCS: 99214 ==

== ENCOUNTER → 2022-01-15 09:20 | Outpatient (BNVA) | payer MEDICAID, SELFPAY | PROVIDERS: PCP Nurse Practitioner Family; Visit Provider Anesthesiology Pain Medicine | DX: M54.2 Cervicalgia (principal); M79.601 Pain in right arm; Z87.891 Personal history of nicotine dependence; E11.65 Type 2 diabetes mellitus with hyperglycemia | CPT/HCPCS: 99213; 99214 ==

== ENCOUNTER 2022-01-17 13:08 | Outpatient (CLI) | payer MEDICAID, SELFPAY ==
--- NOTE | 2022-01-17 13:39 | CT_ITS ---
WS: [id number] CT scan of the left shoulder. Additional two-dimensional coronal and sagittal reconstruction was perf ormed. MIP images were also performed. 01/17/2022 Clinical Data: S49.90XA - Unspecified injury of shoulder and upper arm, ... Comparison: CT arthrogram of the left shoulder, 03/04/2017. DLP: 1018.4 mGy-cm All CT scans at [facility] use at least one of these dose optimization techniques: automated e xposure control; mA and/or kV adjustment per patient size (includes targeted exams where dose is matc hed to clinical indication); or iterative reconstruction. Findings: The contrast material fills the left shoulder joint. There is a small rotator cuff tear with communic ation between the shoulder joint and the subacromial bursa. The biceps tendon is within the bicipital groove and there is no tear or displacement. The glenohumeral ligaments show no evidence of tear. Th e glenoid labrum is intact with no displacement or tear. The distal end of left clavicle has been res ected. No fractures are seen. CT/CT shoulder LT w con [id number] Impression: Small left rotator cuff tear.
--- NOTE | 2022-01-17 13:39 | IR_ITS ---
WS: [id number] Left shoulder arthrogram, 01/17/2022 Clinical Data: S49.90XA - Unspecified injury of shoulder and upper arm, ... Comparison: Left shoulder, 12/26/2021 Fluoroscopy time: 5.8 minutes. Findings: The left shoulder was cleansed with alcohol. Then a 30-gauge needle was used to inject 5 mL of 1% lid ocaine for local anesthesia.. With the usual technique, a 22-gauge small spinal needle was inserted into the left shoulder joint. A fter localizing the needle tip with 3 mL of Omnipaque, 20 mL of a mixture of 10 mL of Omnipaque and 1 0 mL of saline were injected to fill the left shoulder joint. There were no complications. The should er joint shows a normal outline. No evidence of a rotator cuff tear could be seen. There were calcifi cations over the greater tuberosity which appear to be calcific bursitis. IR/IR arthrogram shoulderLT [id number] Impression: Normal left shoulder arthrogram performed to inject dilute contrast for a left shoulder CT scan. .
[2022-01-17] MEDS: iohexol 300 mg/mL 50 mL Btl INTRA-ARTI (14:51)
== END 2022-01-17 13:09 | disposition home or self-care (01) ==
LOC: RAD 13:09
PROVIDERS: PCP Nurse Practitioner Family; Visit Provider Specialist
DX: M75.102 Unspecified rotator cuff tear or rupture of left shoulder, not specified as traumatic (principal); X58.XXXA Exposure to other specified factors, initial encounter
CPT/HCPCS: 23350; 73201; 77002

== ENCOUNTER 2022-01-28 12:09 | Outpatient (CLI) | payer MEDICAID, SELFPAY ==
--- NOTE | 2022-01-28 13:00 | CT_ITS ---
WS: [id number] CT RIGHT SHOULDER ARTHROGRAM HISTORY: M25.519 - Pain in unspecified shoulder DLP: 964.50 mGy-cm. All CT scans at [facility] use at least one of these dose optimization techniques: automated e xposure control; mA and/or kV adjustment per patient size (includes targeted exams where dose is matc hed to clinical indication); or iterative reconstruction. COMPARISON: 02/25/2020 CT shoulder Moderate AC joint arthritis. Minimal narrowing of the joint space but there are small hypertrophic os teophytes encroaching upon the distal supraspinatus tendon. Biceps tendon is difficult to visualize b y CT. There is a moderate to large tear involving the supraspinatus tendon over the humeral head. This tear extends over a width of 15 mm and has progressed since the prior examination. There is an additional more medial separate tear in the supraspinatus tendon just superior to the humeral head. The larger tear extends to the distal tendon. There is a very small amount of contrast extending into the distal subscapularis tendon which was also described on the prior examination. The infraspinatus tendon is intact. There is significant irregularity over the humeral head with narrowing of the subacromial spa ce. Moderate atrophy of the supraspinatus muscle. Atrophy has only minimally progressed since the prior s tudy. No loose bodies are identified within the joint effusion. There is mild narrowing at the glenoh umeral joint. There is contrast extending into the superior labrum. CT/CT shoulder RT w con [id number] IMPRESSION: 1. Large progressive tear involving the distal supraspinatus tendon since 02/24. Tear extends over a width of 15 mm. There is an additional more simple t ear extending through the supraspinatus, superior to the humeral head. 2. Mild progressive atrophy of the supraspinatus muscle. 3. Additional distal subscapularis tendon tear. 4. Superior labral tear.
--- NOTE | 2022-01-28 13:00 | IR_ITS ---
WS: [id number] RIGHT SHOULDER ARTHROGRAM UNDER FLUOROSCOPY. PRIOR TO CT EVALUATION. HISTORY: M25.519 - Pain in unspecified shoulder COMPARISON: 02/25/2020 FLUOROSCOPY TIME: 1.2 minutes. Procedure, risks and complications were explained to the patient. Consent has been obtained. Under fluoroscopic guidance the skin is marked over the medial superior third of the humeral head, cl eansed with ChloraPrep and anesthetized with lidocaine. 22-gauge spinal needle is inserted to the cor grant of the humeral head. Test injection reveals contrast is with joint space. There is a small calibe r joint space with difficulty injecting. There is contrast extruded through the rotator cuff over the superior humeral head. This will be eval uated for tear on the CT to follow. IR/IR arthrogram shoulderRT [id number] IMPRESSION: Uncomplicated RIGHT shoulder joint injection prior to MRI. Suspect supraspinatu s tear over the superior humeral head. CT evaluation to follow.
[2022-01-28] MEDS: iohexol 300 mg/mL 50 mL Btl INTRA-ARTI (13:34)
== END 2022-01-28 12:10 | disposition home or self-care (01) ==
PROVIDERS: PCP Nurse Practitioner Family; Visit Provider Specialist
DX: S43.431A Superior glenoid labrum lesion of right shoulder, initial encounter (principal); M75.101 Unspecified rotator cuff tear or rupture of right shoulder, not specified as traumatic; X58.XXXA Exposure to other specified factors, initial encounter
CPT/HCPCS: 23350; 73040; 73201; 77002

== ENCOUNTER 2022-02-11 14:19 | Outpatient (CLI) | payer MEDICAID, SELFPAY ==
--- NOTE | 2022-02-11 14:00 | XR_ITS ---
WS: [id number] XR KUB [id number] REASON FOR EXAM: Left Renal Stone FINDINGS: Right ureteral catheter has been removed. No calculi seen overlying the right kidney or right ureter. 6 mm calculus is again seen overlying the lower pole of the left kidney. No other significant abdominal or pelvic abnormality. XR/XR KUB [id number] IMPRESSION: Unchanged left renal calculus.
== END 2022-02-11 14:20 | disposition home or self-care (01) ==
LOC: RAD 14:22
PROVIDERS: PCP Nurse Practitioner Family; Visit Provider Urology
DX: N20.0 Calculus of kidney (principal)
CPT/HCPCS: 74018; 81003

== ENCOUNTER → 2022-02-22 12:15 | Outpatient (BNVA) | payer MEDICAID, SELFPAY | PROVIDERS: PCP Nurse Practitioner Family; Visit Provider Nurse Practitioner Family | DX: E11.42 Type 2 diabetes mellitus with diabetic polyneuropathy (principal); M47.817 Spondylosis without myelopathy or radiculopathy, lumbosacral region; E11.65 Type 2 diabetes mellitus with hyperglycemia; I10 Essential (primary) hypertension; M25.511 Pain in right shoulder; M25.512 Pain in left shoulder; E78.2 Mixed hyperlipidemia; E79.0 Hyperuricemia without signs of inflammatory arthritis and tophaceous disease; J44.9 Chronic obstructive pulmonary disease, unspecified | CPT/HCPCS: 80053; 80061; 83036; 84550; 85025 ==

== ENCOUNTER → 2022-02-28 11:00 | Outpatient (BNVA) | payer MEDICAID, SELFPAY | PROVIDERS: PCP Nurse Practitioner Family; Visit Provider Specialist | DX: M12.811 Other specific arthropathies, not elsewhere classified, right shoulder (principal); Z87.891 Personal history of nicotine dependence | CPT/HCPCS: 20610; J1100; J2795; J3301 ==

== ENCOUNTER 2022-03-10 15:53 | Emergency (ER) | payer MEDICAID, SELFPAY ==
--- NOTE | 2022-03-10 15:58 | XRR_ITS ---
PROCEDURE INFORMATION: Exam: XR Left Hip Exam date and time: 03/10/2022 4:27 PM Age: 61 years old Clinical indication: Hip pain; Left hip; Additional info: Injury TECHNIQUE: Imaging protocol: XR Left hip. Views: 2 or 3 views hip with pelvis when performed. COMPARISON: CT abdomen pelvis w con* [id number] 07/24/2021 11:20 PM FINDINGS: Bones/joints: Unremarkable. No acute fracture. Soft tissues: Unremarkable. XR/XR hip LT 2-3V wo/w pel* [id number] IMPRESSION: No acute findings.
[2022-03-10 16:14] VITALS: BP 99/48; PULSE 66; RESP 14; TEMP 36.4; O2SAT 96; BMI 42.4
[2022-03-10 16:26] VITALS: BP 99/48; PULSE 66; RESP 14; TEMP 36.4; O2SAT 96
--- NOTE | 2022-03-10 16:26 | W.ED.EXTPRO ---
Documented by User: Marianna Blackman PA-C 03/10/22 16:46 HPI - Extremity Problem General: Chief complaint: Extremity Problem,Nontraumatic Stated complaint: Left hip pain Time Seen by Provider: 03/10/22 16:23 Source: patient Mode of arrival: ambulatory Limitations: no limitations History of Present Illness: 61-year-old male presents to the ER today with left hip pain x5 days. Patient reports he was lifting a window air unit on Friday and putting it on a table when the table slipped. Patient reports he felt a pop in the left hip and since then has had pain that is radiating down his leg. Patient reports this pain is mostly the posterior aspect. He reports pain with range of motion and weightbearing. He has been using his cane to ambulate. He denies any swelling at this time. Patient reports he has 800 mg ibuprofen at home which she does take occasionally and that takes the edge off slightly. Denies any prior injury to the hip. Review of Systems General: Reports: 10 or more systems reviewed and unremarkable except in HPI and below PFSH ED PFSH: Medical History Bipolar II disorder Cardiac resynchronization therapy defibrillator (BAY STOCKER-D) in place [facility]. [place], 07/11/2020 Cardiomyopathy Diabetes Hemorrhoids Hypertension Mixed hyperlipidemia Osteoarthritis of hands, bilateral Pacemaker Psychiatric care Right ureteral calculus Urolithiasis Multi stone former, calcium oxalate mono and dihydrate. Also calcium phosphate. Multiple interventions including endoscopy with laser lithotripsy and ESWL. Metabolic treatment with potassium citrate Surgical History H/O esophagogastroduodenoscopy (02/27/21) gastritis, duodenitis History of carpal tunnel release of both wrists History of colonoscopy (02/27/21) descending colon polyp, hemorrhoids History of permanent cardiac pacemaker placement Hx of cataract surgery Hx of shoulder surgery Family History Grandfather CAD (coronary artery disease) Brother Cancer colon cancer Diabetes Mother Diabetes Father No problems noted. Other Hypertension Rheumatoid arthritis Social History Smoking and tobacco status: former smoker Quit status (tobacco): has quit using tobacco Year quit tobacco: 1999 Second hand smoke exposure: No Alcohol intake: former Year of sobriety/quit date alcohol: 1997 Caregiver/support person: Yes Lives independently: Yes Household members: spouse Marital status: service: No Current occupational status: disabled History of recent travel: No Current gender identity: Male Special fernando needs: No Agree to transfusion: Yes Physical Exam Const: COMMON NORMALS: no acute distress, average body habitus, patient oriented x3, alert and well nourished HENMT: COMMON NORMALS: normocephalic, hearing grossly normal bilaterally and moist oral mucous membranes HEAD & SCALP: normocephalic Eye: COMMON NORMALS: conjunctivae normal CONJUNCTIVA: Yes conjunctivae normal Resp: COMMON NORMALS: normal respiratory effort and No retractions Cardio: COMMON NORMALS: regular rate and regular rhythm RATE: regular rate RHYTHM: regular rhythm : COMMON NORMALS: Yes no CVA tenderness BLADDER/KIDNEY EXAM: Yes no CVA tenderness Back/Pelvis: COMMON NORMALS: no CVA tenderness, thoracic and lumbar spine normal to inspection and no thoracic nor lumbar tenderness Extremity: NARRATIVE EXTREMITY EXAM: Patient has tenderness to palpation over the posterior aspect of the greater trochanter of the left hip. No deformity noted. Patient has pain with flexion and extension of the left hip both passively and actively. No swelling noted. Neuro: COMMON NORMALS: patient oriented x3 SENSORIUM/ORIENTATION: Yes alert Psych: COMMON NORMALS: mental status grossly normal, Normal thought process present and cooperative THOUGHT PROCESS: Normal thought process present Skin: COMMON NORMALS: no rashes or lesions noted GENERAL SKIN EXAM: no rashes or lesions noted Course ED course: 61-year-old male presents to the ER today with left hip pain x5 days. Patient was lifting an air conditioning unit when the table he was placed to get on slipped. Patient reports immediate left hip pain after he felt a pop. He has some pain radiating down the left leg. We will get an x-ray in the ER today. Consultations: Consultation #1: Care transferred to Milton Morales PA-C at shift change. Awaiting results of xray and discharge. Time: 16:44 Vital Signs: Vital signs: Vital Signs Temperature 97.5 F L 03/10/22 17:42 Pulse Rate 66 03/10/22 17:42 Respiratory Rate 14 03/10/22 17:42 Blood Pressure 99/48 05/01/22 17:42 Pulse Oximetry 96 03/10/22 17:42 MDM - Extremity (Nontraumatic) Lab Data Radiology Impressions Hip/Pelvis X-Ray 03/10/22 15:58 IMPRESSION: No acute findings. Critical Care Time Critical Care Time: Critical Care Time: No Discharge Plan Discharge Patient Disposition: Home Clinical Impression: Pain in left hip Condition: Stable Prescriptions: New cyclobenzaprine 10 mg tablet 10 mg PO BID PRN (Reason: muscle spasm) Qty: 15 0RF prednisone 20 mg tablet 20 mg PO BID 3 Days Qty: 6 0RF No Action aspirin [Aspir-Sagrario] 325 mg tablet,delayed release (DR/EC) 325 mg PO DAILY 0RF Hold Instructions: Resume on 12/08/21. multivitamin Capsule 1 cap PO DAILY 0RF carvedilol 25 mg tablet 25 mg PO BID Qty: 180 3RF rosuvastatin 20 mg tablet 20 mg PO DAILY Qty: 90 1RF Entresto 49-51 mg tablet 1 tab PO BID 30 Days Qty: 180 3RF spironolactone 25 mg tablet 25 mg PO DAILY Qty: 90 3RF tizanidine 4 mg tablet 4 mg PO BID PRN (Reason: muscle spasticity) Qty: 60 0RF gabapentin 300 mg capsule 300 mg PO TID Qty: 90 0RF sertraline 100 mg tablet 100 mg PO DAILY Qty: 30 2RF omega-3 fatty acids [Fish Oil Concentrate] 1,000 mg capsule 2,000 mg PO DAILY 0RF budesonide-formoterol [Symbicort] 160-4.5 mcg/actuation HFA aerosol inhaler 2 puff inhalation BID Qty: 10.2 5RF diclofenac sodium 75 mg tablet,delayed release (DR/EC) 75 mg PO BID PRN (Reason: pain) Qty: 60 2RF (DME) blood-glucose meter [Blood Glucose Monitoring] Kit See Rx Instructions .ROUTE .MEDSUPPLY Qty: 1 0RF Rx Instructions: As directed; to test 2 x day and prn (DME) Blood Glucose Test Strip See Rx Instructions .ROUTE .MEDSUPPLY Qty: 100 11RF Rx Instructions: Check blood sugar 2 x daily and prn albuterol sulfate [ProAir HFA] 90 mcg/actuation HFA aerosol inhaler 2 puff INHALATION Q6H PRN (Reason: shortness of breath or wheezing) Qty: 18 2RF glipizide 10 mg tablet extended release 24hr See Rx Instructions .ROUTE .COMPLEX Qty: 30 3RF Dose Instruction: TAKE 1 TABLET BY MOUTH ONCE DAILY BEFORE BREAKFAST Rx Instructions: TAKE 1 TABLET BY MOUTH ONCE DAILY BEFORE BREAKFAST cetirizine 10 mg tablet 10 mg PO DAILY Qty: 30 3RF ketorolac 10 mg tablet 10 mg PO QID PRN (Reason: pain) 5 Days Qty: 20 0RF Rx Instructions: DO NOT take any other NSAIDS while taking this medication. allopurinol 300 mg tablet See Rx Instructions .ROUTE .COMPLEX Qty: 90 0RF Dose Instruction: Take 1 tablet by mouth once daily Rx Instructions: Take 1 tablet by mouth once daily Invokana 300 mg tablet See Rx Instructions .ROUTE .COMPLEX Qty: 90 0RF Dose Instruction: Take 1 tablet by mouth once daily Rx Instructions: Take 1 tablet by mouth once daily omeprazole 40 mg capsule,delayed release(DR/EC) See Rx Instructions .ROUTE .COMPLEX Qty: 90 0RF Dose Instruction: Take 1 capsule by mouth once daily Rx Instructions: Take 1 capsule by mouth once daily metformin 500 mg tablet extended release 24 hr 2,000 mg PO DAILY Qty: 360 1RF Trulicity 0.75 mg/0.5 mL pen injector See Rx Instructions .ROUTE .COMPLEX Qty: 4 0RF Dose Instruction: INJECT 0.75MG (0.5ML) SUBCUTANEOUSLY WEEKLY Rx Instructions: INJECT 0.75MG (0.5ML) SUBCUTANEOUSLY WEEKLY potassium citrate 10 mEq (1,080 mg) tablet extended release See Rx Instructions .ROUTE .COMPLEX Qty: 120 12RF Dose Instruction: Take 2 tablets by mouth twice daily Rx Instructions: Take 2 tablets by mouth twice daily fluticasone propionate 50 mcg/actuation spray,suspension 2 spray intranasal DAILY 0RF fenofibrate 160 mg tablet 160 mg PO DAILY Qty: 90 1RF Discharge Orders: Discharge ED (Routine); Ordered 03/10/22 Ordered By: Milton Morales Referrals: Lucrecia Blandon FNP [Primary Care Provider] - Discharge Diet: Regular Discharge Activity: Increase activity as tolerated Activity Restrictions/Additional Instructions: Follow-up with medical provider as directed in the next 5 to 7 days reevaluation. Apply cold pack on left hip and massage sore area of hip daily to help with symptoms. Take medications as prescribed. Sending you with a muscle relaxer which is cyclobenzaprine you can take that at night before going to bed to help with any left hip muscle pain and tightness. Continue taking ibuprofen 800 mg every 8 hours to help with pain. return to the ER or your medical provider if condition worsens. Please read and understand discharge instructions. Thank you for choosing [facility] for your healthcare needs today. Please realize this is an emergency room and that we are providing you with a medical screening exam and this may not be complete and all inclusive of all the testing and or work up that you may need to determine your ailment or severity of your illness. It is very important that you follow up as instructed or that you return to the Emergency Department should you have concerns or if your condition changes or worsens in any way. Sign Out Sign Out Data: Patient Sign Out occurred on 03/10/22 at 17:02. Patient's care was discussed, and care was transferred from to JACK Vanegas. Coding Level of Care Code ED Roll Forming Machine Set Up Mechanic for Chg Fwd Exam Comprehensive Documented by User: JACK Vanegas 03/11/22 01:05 HPI - Extremity Problem General: Chief complaint: Extremity Problem,Nontraumatic Stated complaint: Left hip pain Time Seen by Provider: 03/10/22 16:23 [facility] ED PFS: Medical History Bipolar II disorder Cardiac resynchronization therapy defibrillator (BAY STOCKER-D) in place [employer] Dr. [place], 07/11/2020 Cardiomyopathy Diabetes Hemorrhoids Hypertension Mixed hyperlipidemia Osteoarthritis of hands, bilateral Pacemaker Psychiatric care Right ureteral calculus Urolithiasis Multi stone former, calcium oxalate mono and dihydrate. Also calcium phosphate. Multiple interventions including endoscopy with laser lithotripsy and ESWL. Metabolic treatment with potassium citrate Surgical History H/O esophagogastroduodenoscopy (02/27/21) gastritis, duodenitis History of carpal tunnel release of both wrists History of colonoscopy (02/27/21) descending colon polyp, hemorrhoids History of permanent cardiac pacemaker placement Hx of cataract surgery Hx of shoulder surgery Family History Grandfather CAD (coronary artery disease) Brother Cancer colon cancer Diabetes Mother Diabetes Father No problems noted. Other Hypertension Rheumatoid arthritis Social History Smoking and tobacco status: former smoker Quit status (tobacco): has quit using tobacco Year quit tobacco: 1999 Second hand smoke exposure: No Alcohol intake: former Year of sobriety/quit date alcohol: 1997 Caregiver/support person: Yes Lives independently: Yes Household members: spouse Marital status: service: No Current occupational status: disabled History of recent travel: No Current gender identity: Male Special fernando needs: No Agree to transfusion: Yes Course Vital Signs: Vital signs: Vital Signs Temperature 97.5 F L 03/10/22 17:42 Pulse Rate 66 03/10/22 17:42 Respiratory Rate 14 03/10/22 17:42 Blood Pressure 99/48 03/10/22 17:42 Pulse Oximetry 96 03/10/22 17:42 MDM - Extremity (Nontraumatic) Medical Decision Making Patient is a 61-year-old male comes to the ED with pain in left hip. Patient was lifting something heavy and felt a pop and some pain in left hip. Vitals are stable. Exam shows some tenderness over the posterior aspect of the greater trochanter of left hip. Neurovascular tact distally and rest of exam is benign. X-ray left hip showed no acute findings. Patient diagnosed with left hip pain and was discharged home with a prescription for steroid and muscle relaxer. Take [id number] Tylenol or ibuprofen for pain. Return to ED precautions given. Follow-up with PCP in the next week for reevaluation. Patient understood and agreed with plan. Lab Data Radiology Impressions Hip/Pelvis X-Ray 03/10/22 15:58 IMPRESSION: No acute findings. Discharge Plan Discharge Patient Disposition: Home Clinical Impression: Pain in left hip Condition: Stable Prescriptions: New cyclobenzaprine 10 mg tablet 10 mg PO BID PRN (Reason: muscle spasm) Qty: 15 0RF prednisone 20 mg tablet 20 mg PO BID 3 Days Qty: 6 0RF No Action aspirin [Aspir-Sagrario] 325 mg tablet,delayed release (DR/EC) 325 mg PO DAILY 0RF Hold Instructions: Resume on 12/08/21. multivitamin Capsule 1 cap PO DAILY 0RF carvedilol 25 mg tablet 25 mg PO BID Qty: 180 3RF rosuvastatin 20 mg tablet 20 mg PO DAILY Qty: 90 1RF Entresto 49-51 mg tablet 1 tab PO BID 30 Days Qty: 180 3RF spironolactone 25 mg tablet 25 mg PO DAILY Qty: 90 3RF tizanidine 4 mg tablet 4 mg PO BID PRN (Reason: muscle spasticity) Qty: 60 0RF gabapentin 300 mg capsule 300 mg PO TID Qty: 90 0RF sertraline 100 mg tablet 100 mg PO DAILY Qty: 30 2RF omega-3 fatty acids [Fish Oil Concentrate] 1,000 mg capsule 2,000 mg PO DAILY 0RF budesonide-formoterol [Symbicort] 160-4.5 mcg/actuation HFA aerosol inhaler 2 puff inhalation BID Qty: 10.2 5RF diclofenac sodium 75 mg tablet,delayed release (DR/EC) 75 mg PO BID PRN (Reason: pain) Qty: 60 2RF (DME) blood-glucose meter [Blood Glucose Monitoring] Kit See Rx Instructions .ROUTE .MEDSUPPLY Qty: 1 0RF Rx Instructions: As directed; to test 2 x day and prn (DME) Blood Glucose Test Strip See Rx Instructions .ROUTE .MEDSUPPLY Qty: 100 11RF Rx Instructions: Check blood sugar 2 x daily and prn albuterol sulfate [ProAir HFA] 90 mcg/actuation HFA aerosol inhaler 2 puff INHALATION Q6H PRN (Reason: shortness of breath or wheezing) Qty: 18 2RF glipizide 10 mg tablet extended release 24hr See Rx Instructions .ROUTE .COMPLEX Qty: 30 3RF Dose Instruction: TAKE 1 TABLET BY MOUTH ONCE DAILY BEFORE BREAKFAST Rx Instructions: TAKE 1 TABLET BY MOUTH ONCE DAILY BEFORE BREAKFAST cetirizine 10 mg tablet 10 mg PO DAILY Qty: 30 3RF ketorolac 10 mg tablet 10 mg PO QID PRN (Reason: pain) 5 Days Qty: 20 0RF Rx Instructions: DO NOT take any other NSAIDS while taking this medication. allopurinol 300 mg tablet See Rx Instructions .ROUTE .COMPLEX Qty: 90 0RF Dose Instruction: Take 1 tablet by mouth once daily Rx Instructions: Take 1 tablet by mouth once daily Invokana 300 mg tablet See Rx Instructions .ROUTE .COMPLEX Qty: 90 0RF Dose Instruction: Take 1 tablet by mouth once daily Rx Instructions: Take 1 tablet by mouth once daily omeprazole 40 mg capsule,delayed release(DR/EC) See Rx Instructions .ROUTE .COMPLEX Qty: 90 0RF Dose Instruction: Take 1 capsule by mouth once daily Rx Instructions: Take 1 capsule by mouth once daily metformin 500 mg tablet extended release 24 hr 2,000 mg PO DAILY Qty: 360 1RF Trulicity 0.75 mg/0.5 mL pen injector See Rx Instructions .ROUTE .COMPLEX Qty: 4 0RF Dose Instruction: INJECT 0.75MG (0.5ML) SUBCUTANEOUSLY WEEKLY Rx Instructions: INJECT 0.75MG (0.5ML) SUBCUTANEOUSLY WEEKLY potassium citrate 10 mEq (1,080 mg) tablet extended release See Rx Instructions .ROUTE .COMPLEX Qty: 120 12RF Dose Instruction: Take 2 tablets by mouth twice daily Rx Instructions: Take 2 tablets by mouth twice daily fluticasone propionate 50 mcg/actuation spray,suspension 2 spray intranasal DAILY 0RF fenofibrate 160 mg tablet 160 mg PO DAILY Qty: 90 1RF Discharge Orders: Discharge ED (Routine); Ordered 03/10/22 Ordered By: Milton Morales Referrals: Lucrecia Blandon FNP [Primary Care Provider] - Discharge Diet: Regular Discharge Activity: Increase activity as tolerated Activity Restrictions/Additional Instructions: Follow-up with medical provider as directed in the next 5 to 7 days reevaluation. Apply cold pack on left hip and massage sore area of hip daily to help with symptoms. Take medications as prescribed. Sending you with a muscle relaxer which is cyclobenzaprine you can take that at night before going to bed to help with any left hip muscle pain and tightness. Continue taking ibuprofen 800 mg every 8 hours to help with pain. return to the ER or your medical provider if condition worsens. Please read and understand discharge instructions. Thank you for choosing [facility] for your healthcare needs today. Please realize this is an emergency room and that we are providing you with a medical screening exam and this may not be complete and all inclusive of all the testing and or work up that you may need to determine your ailment or severity of your illness. It is very important that you follow up as instructed or that you return to the Emergency Department should you have concerns or if your condition changes or worsens in any way. Sign Out Sign Out Data: Patient Sign Out occurred on 03/10/22 at 17:02. Patient's care was discussed, and care was transferred from to JACK Vanegas. Coding Level of Care Code ED Roll Forming Machine Set Up Mechanic for Ck Fwd Exam Comprehensive
[2022-03-10 17:42] VITALS: BP 99/48; PULSE 66; RESP 14; TEMP 36.4; O2SAT 96
== END 2022-03-10 17:44 | disposition home or self-care (01) ==
PROVIDERS: Emergency Provider Physician Assistant; PCP Nurse Practitioner Family
DX: M25.552 Pain in left hip (principal)
CPT/HCPCS: 73502; 99283

== ENCOUNTER → 2022-04-12 13:01 | Outpatient (BNVA) | payer MEDICAID, SELFPAY | PROVIDERS: PCP Nurse Practitioner Family; Visit Provider Nurse Practitioner | DX: F31.81 Bipolar II disorder (principal) | CPT/HCPCS: 99214 ==

== ENCOUNTER → 2022-04-15 13:39 | Outpatient (BNVA) | payer MEDICAID, SELFPAY | PROVIDERS: PCP Nurse Practitioner Family; Visit Provider Nurse Practitioner Family | DX: I42.9 Cardiomyopathy, unspecified (principal); Z95.0 Presence of cardiac pacemaker; R40.0 Somnolence; Z87.891 Personal history of nicotine dependence | CPT/HCPCS: 36415; 80048; 99214 ==

== ENCOUNTER → 2022-05-03 09:24 | Outpatient (BNVA) | payer MEDICAID, SELFPAY | PROVIDERS: PCP Nurse Practitioner Family; Visit Provider Internal Medicine Cardiovascular Disease | DX: Z45.02 Encounter for adjustment and management of automatic implantable cardiac defibrillator (principal) | CPT/HCPCS: 93284 ==

== ENCOUNTER → 2022-05-20 09:32 | Outpatient (BNVA) | payer MEDICAID, SELFPAY | PROVIDERS: PCP Nurse Practitioner Family; Visit Provider Nurse Practitioner Family | DX: R05.9 Cough, unspecified (principal); R06.02 Shortness of breath; E11.42 Type 2 diabetes mellitus with diabetic polyneuropathy | CPT/HCPCS: 71046; 80053; 80061; 83880 ==

== ENCOUNTER 2022-05-31 19:07 | Emergency (ER) | payer MEDICAID, SELFPAY ==
--- NOTE | 2022-05-31 19:11 | XRR_ITS ---
PROCEDURE INFORMATION: Exam: XR Chest Exam date and time: 05/31/2022 7:20 PM Age: 61 years old Clinical indication: Angina; Additional info: Cp TECHNIQUE: Imaging protocol: Radiologic exam of the chest. Views: 1 view. COMPARISON: CR XR chest 2V* [id number] 05/20/2022 9:35 AM FINDINGS: Lungs: No consolidation. Pleural spaces: No pleural effusion. No pneumothorax. Heart/Mediastinum: Similar cardiomegaly with AICD/pacer device noted in the right chest wall. Bones/joints: Visualized osseous structures are intact. XR/XR chest 1V portable [id number] IMPRESSION: Stable exam, no acute findings.
--- NOTE | 2022-05-31 19:11 | ECG_ITS ---
[facility] Test Date: 2022-05-31 Pat Name: Amrik Alexander Department: Room: Gender: Male Partner Cco: : 1960 Requested By: Gurvinder Felton Order Number: [id number] Haja MD: Reese Andrew M.D. Measurements Intervals [place] Rate: 89 P: 85 HI: 195 QRS: 214 QRSD: 143 T: 49 QT: 370 QTc: 451 Interpretive Statements ELECTRONIC ATRIAL PACEMAKER ELECTRONIC VENTRICULAR PACEMAKER Compared to ECG 07/24/2021 22:11:04 Ventricular premature complex(es) no longer present Electronically Signed On 05-31-2022 22:00:16 CDT by Reese Andrew M.D. [id number]
[2022-05-31 19:15] VITALS: BP 137/87; PULSE 87; RESP 20; TEMP 36.8; O2SAT 97; BMI 42.4
--- NOTE | 2022-05-31 19:19 | W.ED.CHESTPA ---
HPI - Chest Pain General: Chief Complaint: Chest Pain Stated Complaint: Chest Pains Time Seen by Provider: 05/31/22 19:10 Source: patient Mode of arrival: ambulatory Limitations: no limitations History of Present Illness: 61-year-old male has a history of congestive heart failure along with COPD states he been having intermittent pains over the last 2 months. He states that today started having the chest pain an hour ago the center of his chest the same pain has been having for the last 2 months. States the pain currently is a 5 out of 10 denies any worsening improving factors he denies any shortness of breath denies any radiation of his pain. Associated symptoms: Deny abdominal pain, dyspnea, fever(s), nausea or vomiting Review of Systems Const: Denies: fever(s), chills, body aches or change in appetite Eyes: Denies: blurry vision or eye discomfort ENMT: Denies: throat pain or dental pain Card: Reports: chest pain Resp: Denies: dyspnea GI: Denies: abdominal pain, nausea, vomiting or diarrhea : Denies: dysuria Musc: Denies: neck pain or back pain Skin/Breast: Denies: rash Neuro: Denies: headache(s) Psych: Denies: depression Surinder/Lymph: Denies: easy bruising All/Imm: Denies: urticaria PFSH ED PFSH: Medical History Bipolar II disorder Cardiac resynchronization therapy 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 [place], 07/11/2020 Cardiomyopathy Diabetes Hemorrhoids Hypertension Mixed hyperlipidemia Osteoarthritis of hands, bilateral Pacemaker Psychiatric care Right ureteral calculus Urolithiasis Multi stone former, calcium oxalate mono and dihydrate. Also calcium phosphate. Multiple interventions including endoscopy with laser lithotripsy and ESWL. Metabolic treatment with potassium citrate Surgical History H/O esophagogastroduodenoscopy (02/27/21) gastritis, duodenitis History of carpal tunnel release of both wrists History of colonoscopy (02/27/21) descending colon polyp, hemorrhoids History of permanent cardiac pacemaker placement Hx of cataract surgery Hx of shoulder surgery Family History Grandfather CAD (coronary artery disease) Brother Cancer colon cancer Diabetes Mother Diabetes Father No problems noted. Other Hypertension Rheumatoid arthritis Social History Smoking and tobacco status: never smoked Quit status (tobacco): has quit using tobacco Year quit tobacco: 1999 Second hand smoke exposure: No Alcohol intake: former Year of sobriety/quit date alcohol: 1997 Caregiver/support person: Yes Lives independently: Yes Household members: spouse Marital status: service: No Current occupational status: disabled History of recent travel: No Current gender identity: Male Special fernando needs: No Agree to transfusion: Yes Physical Exam Const: COMMON NORMALS: no acute distress, patient oriented x3 and healthy appearing HENMT: COMMON NORMALS: normocephalic and atraumatic HEAD & SCALP: normocephalic and atraumatic Eye: COMMON NORMALS: Equal, round and reactive pupils present and EOMs intact bilaterally PUPIL: Yes Equal, round and reactive pupils present Neck/C-Spine: COMMON NORMALS: full ROM and supple Chest: COMMONS NORMALS: normal inspection of the chest and normal palpation of entire chest wall Resp: COMMON NORMALS: normal respiratory effort, No retractions, No use of accessory muscles and clear to auscultation bilaterally AUSCULTATION: clear to auscultation bilaterally Cardio: COMMON NORMALS: regular rate, regular rhythm and No murmurs present (Cardio) RATE: regular rate RHYTHM: regular rhythm GI: COMMON NORMALS: Normal to inspection, nondistended, normoactive bowel sounds present, Soft to palpation, non-tender and no masses PALPATION: Yes Soft to palpation Extremity: COMMON NORMALS: normal to inspection and full ROM Neuro: COMMON NORMALS: patient oriented x3, moves all extremities and no focal motor deficits Psych: COMMON NORMALS: mental status grossly normal, Normal thought process present and cooperative THOUGHT PROCESS: Normal thought process present Skin: COMMON NORMALS: no rashes or lesions noted and no wounds GENERAL SKIN EXAM: no rashes or lesions noted Course Vital Signs: Vital signs: Vital Signs Temperature 98.2 F 05/31/22 19:15 Pulse Rate 81 05/31/22 20:19 Respiratory Rate 18 05/31/22 20:19 Blood Pressure 108/69 05/31/22 20:19 Pulse Oximetry 95 05/31/22 20:19 MDM - Chest Pain Medical Decision Making Patient presents for chest pain that is atypical in nature his initial and repeat troponins here are normal he has no signs of acute coronary syndrome no signs of pulm embolism he feels improved he is stable for discharge 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 Lab Data : 05/31/22 19:19 05/31/22 20:27 Radiology Impressions Chest X-Ray 05/31/22 19:11 IMPRESSION: Stable exam, no acute findings. Laboratory Results WBC 10.7 10^3/uL (4.0-10.0) H 05/31/22 19:19 RBC 4.90 10^6/uL (4.1-5.3) 05/31/22 19:19 Hgb 15.5 g/dL (11.7-16.6) 05/31/22 19:19 Hct 45.5 % (42.0-52.0) 05/31/22 19:19 MCV 92.9 fl (80-94) 05/31/22 19:19 MCH 31.6 pg (28.0-34.0) 05/31/22 19:19 MCHC 34.1 g/dL (30.0-36.0) 05/31/22 19:19 RDW 13.2 % (12.1-15.1) 05/31/22 19:19 Plt Count 188 10^3/cmm (130-400) 05/31/22 19:19 MPV 11.5 fL (7.4-10.4) H 05/31/22 19:19 Neut % (Auto) 61.4 % 05/31/22 19:19 Lymph % (Auto) 28.4 % 05/31/22 19:19 [place] % (Auto) 7.0 % 05/31/22 19:19 Eos % (Auto) 2.1 % 05/31/22 19:19 Baso % (Auto) 0.4 % 05/31/22 19:19 Neut # (Auto) 6.57 10^3/uL (1.8-7.7) 05/31/22 19:19 Lymph # (Auto) 3.0 10^3/uL (0.8-4.8) 05/31/22 19:19 [place] # (Auto) 0.8 10^3/uL (0.2-0.9) 05/31/22 19:19 Eos # (Auto) 0.2 10^3/uL (0.0-0.8) 05/31/22 19:19 Baso # (Auto) 0.0 10^3/uL (0.0-0.1) 05/31/22 19:19 Nucleated RBC % (auto) 0 % 05/31/22 19:19 Nucleated RBCs # 0.0 /100WBC 05/31/22 19:19 Sodium 134 mmol/L (136-145) L 05/31/22 20:27 Potassium 4.4 mmol/L (3.5-5.1) 05/31/22 20:27 Chloride 101 mmol/L (98-107) 05/31/22 20: Carbon Dioxide 23 mmol/L (22-29) 05/31/22 20:27 Anion Gap 14.4 (5-19) 05/31/22 20:27 BUN 13 mg/dL (8-23) 05/31/22 20:27 Creatinine 0.7 mg/dL (0.7-1.2) 05/31/22 20:27 GFR Calculation 114.6 mL/min (90-130) 05/31/22 20: Glucose 137 mg/dL (65-115) H 05/31/22 20:27 Calculated Osmolality 280 mOsm/kg (285-295) L 05/31/22 20: Calcium 9.2 mg/dL (8.5-10.5) 05/31/22 20:27 Total Bilirubin 0.3 mg/dL (0.15-1.2) 05/31/22 20:27 AST 14 U/L (0-40) 05/31/22 20:27 ALT 24 U/L (0-41) 05/31/22 20:27 Alkaline Phosphatase 57 IU/L (40-130) 05/31/22 20:27 Troponin T Baseline 19 ng/L (0-15) H 05/31/22 20:27 Troponin T 120 Minute 19.06 ng/L (0-15) H 05/31/22 22:00 Delta Troponin T 0.06 ABS# (0-10) 05/31/22 22:00 Total Protein 5.7 g/dL (6.6-8.7) L 05/31/22 20:27 Albumin 3.7 g/dL (3.5-5.2) 05/31/22 20:27 Globulin 2.0 g/dL (1.3-4.6) 05/31/22 20:27 EKG Data EKG 1: I personally reviewed and interpreted this EKG as follows: EKG interpretation date: 05/31/22 EKG interpretation time: 19:13 Interpretation: paced hr [address] or t wave abnormalities qrs 143 qtc 416 EKG 2: I personally reviewed and interpreted this EKG as follows: EKG interpretation date: 05/31/22 EKG interpretation time: 21:16 Interpretation: paced hr [address] or t wave abnormalities qrs 174 qtc 450 Discharge Plan Discharge Patient Disposition: Home Clinical Impression: Chest pain Condition: Stable Prescriptions: No Action aspirin [Aspir-Sagrario] 325 mg tablet,delayed release (DR/EC) 325 mg PO DAILY 0RF Hold Instructions: Resume on 12/08/21. multivitamin Capsule 1 cap PO DAILY 0RF carvedilol 25 mg tablet 25 mg PO BID Qty: 180 3RF rosuvastatin 20 mg tablet 20 mg PO DAILY Qty: 90 1RF tizanidine 4 mg tablet 4 mg PO BID PRN (Reason: muscle spasticity) Qty: 60 0RF gabapentin 300 mg capsule 300 mg PO TID Qty: 90 0RF omega-3 fatty acids [Fish Oil Concentrate] 1,000 mg capsule 2,000 mg PO DAILY 0RF diclofenac sodium 75 mg tablet,delayed release (DR/EC) 75 mg PO BID PRN (Reason: pain) Qty: 60 2RF sertraline 100 mg tablet 100 mg PO DAILY Qty: 30 2RF magnesium L-lactate 84 mg tablet extended release 84 mg PO DAILY Qty: 90 2RF spironolactone 25 mg tablet 12.5 mg PO DAILY Qty: 90 3RF sacubitril-valsartan 97-103 mg tablet 1 tab PO BID Qty: 180 3RF glipizide 10 mg tablet extended release 24hr See Rx Instructions .ROUTE .COMPLEX Qty: 30 3RF Dose Instruction: TAKE 1 TABLET BY MOUTH ONCE DAILY BEFORE BREAKFAST Rx Instructions: TAKE 1 TABLET BY MOUTH ONCE DAILY BEFORE BREAKFAST fenofibrate 160 mg tablet 160 mg PO DAILY Qty: 90 1RF metformin 500 mg tablet extended release 24 hr 2,000 mg PO DAILY Qty: 360 1RF albuterol sulfate [ProAir HFA] 90 mcg/actuation HFA aerosol inhaler 2 puff INHALATION Q6H PRN (Reason: shortness of breath or wheezing) Qty: 18 2RF azithromycin [Zithromax Z-Loki] 250 mg tablet See Rx Instructions PO .COMPLEX Qty: 6 0RF Rx Instructions: For 250 mg dose pack: take 500 mg today (day 1), then 250 mg for 4 days (days 2-5) PO methylprednisolone [Medrol (Loki)] 4 mg tablets,dose pack See Rx Instructions PO PER PKG DIR Qty: 21 0RF Rx Instructions: PO PER PKG DIR budesonide-formoterol [Symbicort] 160-4.5 mcg/actuation HFA aerosol inhaler 2 puff inhalation BID Qty: 10.2 5RF Hold Instructions: try trelegy (DME) blood-glucose meter [Blood Glucose Monitoring] Kit See Rx Instructions .ROUTE .MEDSUPPLY Qty: 1 0RF Rx Instructions: As directed; to test 2 x day and prn (DME) Blood Glucose Test Strip See Rx Instructions .ROUTE .MEDSUPPLY Qty: 100 11RF Rx Instructions: Check blood sugar 2 x daily and prn ketorolac 10 mg tablet 10 mg PO QID PRN (Reason: pain) 5 Days Qty: 20 0RF Rx Instructions: DO NOT take any other NSAIDS while taking this medication. allopurinol 300 mg tablet See Rx Instructions .ROUTE .COMPLEX Qty: 90 0RF Dose Instruction: Take 1 tablet by mouth once daily Rx Instructions: Take 1 tablet by mouth once daily Invokana 300 mg tablet See Rx Instructions .ROUTE .COMPLEX Qty: 90 0RF Dose Instruction: Take 1 tablet by mouth once daily Rx Instructions: Take 1 tablet by mouth once daily omeprazole 40 mg capsule,delayed release(DR/EC) See Rx Instructions .ROUTE .COMPLEX Qty: 90 0RF Dose Instruction: Take 1 capsule by mouth once daily Rx Instructions: Take 1 capsule by mouth once daily potassium citrate 10 mEq (1,080 mg) tablet extended release See Rx Instructions .ROUTE .COMPLEX Qty: 120 12RF Dose Instruction: Take 2 tablets by mouth twice daily Rx Instructions: Take 2 tablets by mouth twice daily Trulicity 0.75 mg/0.5 mL pen injector See Rx Instructions .ROUTE .COMPLEX Qty: 4 5RF Dose Instruction: INJECT 0.75MG (0.5ML) SUBCUTANEOUSLY WEEKLY Rx Instructions: INJECT 0.75MG (0.5ML) SUBCUTANEOUSLY WEEKLY cetirizine [Allergy Relief (cetirizine)] 10 mg tablet See Rx Instructions .ROUTE .COMPLEX Qty: 90 1RF Dose Instruction: Take 1 tablet by mouth once daily Rx Instructions: Take 1 tablet by mouth once daily fluticasone propionate 50 mcg/actuation spray,suspension 2 spray intranasal DAILY 0RF Discharge Orders: Discharge ED (Routine); Ordered 05/31/22 Ordered By: Gurvinder Felton Referrals: Lucrecia Blandon FNP [Primary Care Provider] - 1-3 days Discharge Diet: Advance as tolerated Discharge Activity: Resume usual activity Patient Instructions: Chest Pain (ED) Coding Level of Care Code ED Data Governance Analyst for Ck Fwd Exam Comprehensive
[2022-05-31] MEDS: aspirin 81 mg Chew Tablet 324 MG PO (19:25)
[2022-05-31 19:27] LABS: Basophils % 0.4 %; Eosinophils # 0.2 10^3/uL (0.0-0.8); Eosinophils % 2.1 %; Hematocrit 45.5 % (42.0-52.0); Hemoglobin 15.5 g/dL (11.7-16.6); Lymphocytes % 28.4 %; Mean Corpuscular HGB Conc 34.1 g/dL (30.0-36.0); Mean Corpuscular Hemoglobin 31.6 pg (28.0-34.0); Mean Corpuscular Volume 92.9 fl (80-94); Mean Platelet Volume 11.5 fL (7.4-10.4); Monocytes # 0.8 10^3/uL (0.2-0.9); Neutrophils # 6.57 10^3/uL (1.8-7.7); Neutrophils % 61.4 %; Nucleated Red Blood Cells % 0 %; Platelet Count 188 10^3/cmm (130-400); Red Cell Distribution Width 13.2 % (12.1-15.1); White Blood Count 10.7 10^3/uL (4.0-10.0)
[2022-05-31 20:19] VITALS: BP 108/69; PULSE 81; RESP 18; O2SAT 95
[2022-05-31 20:50] LABS: Alanine Aminotransferase 24 U/L (0-41); Albumin Level 3.7 g/dL (3.5-5.2); Alkaline Phosphatase 57 IU/L (40-130); Anion Gap 14.4 (5-19); Aspartate Amino Transferase 14 U/L (0-40); Blood Urea Nitrogen 13 mg/dL (8-23); Calcium 9.2 mg/dL (8.5-10.5); Carbon Dioxide 23 mmol/L (22-29); Chloride 101 mmol/L (98-107); Glomerular Filtration Rate 114.6 mL/min (90-130); Glucose 137 mg/dL (65-115); Osmolality Calculated 280 mOsm/kg (285-295); Potassium 4.4 mmol/L (3.5-5.1); Sodium 134 mmol/L (136-145); Total Bilirubin 0.3 mg/dL (0.15-1.2); Total Protein 5.7 g/dL (6.6-8.7)
[2022-05-31 20:51] LABS: Troponin(5th) Baseline 19 ng/L (0-15)
--- NOTE | 2022-05-31 21:11 | ECG_ITS ---
[facility] Test Date: 2022-05-31 Pat Name: Amrik Alexander Department: Room: Gender: Male Lab Tester: : 1960 Requested By: Gurvinder Felton Order Number: [id number] Haja MD: Reese Andrew M.D. Measurements Intervals [place] Rate: 81 P: 82 AR: 174 QRS: 206 QRSD: 174 T: 40 QT: 413 QTc: 481 Interpretive Statements ELECTRONIC ATRIAL PACEMAKER ELECTRONIC VENTRICULAR PACEMAKER Compared to ECG 07/24/2021 22:11:04 Ventricular premature complex(es) no longer present Electronically Signed On 05-31-2022 22:00:29 CDT by Reese Andrew M.D. [id number]
[2022-05-31 22:31] LABS: Troponin 5 2HR 19.06 ng/L (0-15); Troponin 5 2HR Delta 0.06 ABS# (0-10)
[2022-05-31 22:41] VITALS: BP 116/62; PULSE 80; RESP 18; O2SAT 96
== END 2022-05-31 22:42 | disposition home or self-care (01) ==
PROVIDERS: Emergency Provider Emergency Medicine; PCP Nurse Practitioner Family
DX: R07.9 Chest pain, unspecified (principal); Z79.82 Long term (current) use of aspirin; Z79.84 Long term (current) use of oral hypoglycemic drugs; E11.9 Type 2 diabetes mellitus without complications; E78.2 Mixed hyperlipidemia; Z95.0 Presence of cardiac pacemaker; Z87.891 Personal history of nicotine dependence; J44.9 Chronic obstructive pulmonary disease, unspecified; I11.0 Hypertensive heart disease with heart failure; I50.9 Heart failure, unspecified
CPT/HCPCS: 36415; 71045; 80053; 84484; 85025; 93005; 99285

== ENCOUNTER 2022-06-13 11:52 | Emergency (ER) | payer MEDICAID, SELFPAY ==
[2022-06-13 11:58] VITALS: BP 110/72; PULSE 80; RESP 16; TEMP 36.4; O2SAT 98
--- NOTE | 2022-06-13 12:12 | CT_ITS ---
WS: [id number] CT THORACIC SPINE TECHNIQUE: Noncontrast CT of the thoracic spine with coronal and sagittal reformatted images. CLINICAL INFORMATION: fall, mid back pain COMPARISON: None. DLP: 1209.[address] scans at [facility] use at least one of these dose optimization techniques: automated e xposure control; mA and/or kV adjustment per patient size (includes targeted exams where dose is matc hed to clinical indication); or iterative reconstruction. FINDINGS: Mild thoracic curve. Mild thoracic kyphosis. Hypertrophic changes anterior thoracic spine with partia l ankylosis. Disc space heights and vertebral body heights relatively well-maintained. No acute compr ession fractures. No high-grade central canal stenosis. Tiny esophageal hiatal hernia. Adrenal glands are normal. Normal caliber thoracic aorta. Slight bibas ilar atelectasis. Moderate facet arthropathy lower thoracic spine. CT/CT thoracic spin wo con* [id number] IMPRESSION: No acute thoracic spine fractures.
--- NOTE | 2022-06-13 12:12 | XR_ITS ---
WS: [id number] Chest with right rib detail, 06/13/2022 Clinical Data: fall, R posterior rib pain Comparison: Portable chest, 05/31/2022. Findings: The lungs show no nodules, masses, or effusions. The heart is likely enlarged. No pneumonia or pneumo thorax is seen. The permanent pacemaker and cardiac defibrillator remain in good position. The ribs are intact. No rib fractures seen. No subcutaneous emphysema is present. XR/XR ribs RT mn 3V w [id number] Impression: 1. No change in cardiomegaly and cardiac pacemaker. 2. Negative right rib detail.
--- NOTE | 2022-06-13 12:13 | ED_ITS ---
HPI - Fall General: Chief Complaint: Fall Stated Complaint: Back pain Time Seen by Provider: 06/13/22 12:04 Source: patient Mode of arrival: ambulatory Limitations: no limitations History of Present Illness: Patient is a 61-year-old male who presents to ED today with a complaint of a fall/back injury that occurred 2 days ago. Patient states he was up on the third rung of a ladder when he fell backwards and struck his mid back and right posterior ribs on the edge of a sawhorse. Patient states he is continue to have pain since the fall. He does not feel like it is worsening in any way. Pain seems to be worse with movement and deep inhalation. He does not complain of any shortness of breath or difficulty breathing. He has no other injuries or complaints at this time. MD complaint: fall Onset (ago): day(s) (2d ago) Fall from: from height (distance) (3 ft) Fall witnessed: no Place fall occurred: home Loss of consciousness: None Prolonged down time: no Symptoms prior to fall: none Context: tripped/slipped Location of injury: back Associated symptoms-after fall: Reports no associated symptoms; Denies abdominal pain, chest pain, difficulty walking, headache(s), hematuria, lightheadedness or neck pain Review of Systems Const: Denies: fever(s) Eyes: Denies: change in vision Card: Denies: chest pain, lightheadedness, syncope or pre-syncope Resp: Denies: dyspnea GI: Denies: abdominal pain : Denies: flank pain, dysuria or hematuria Musc: Reports: back pain; Denies: neck pain, extremity pain or joint pain Neuro: Denies: headache(s), numbness in extremities, weakness in extremities, sensory changes, difficulty walking or dizziness [facility] ED PFSH: Medical History Bipolar II disorder 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 Also calcium phosph ate. Multiple interventions including endoscopy with laser lithotripsy and ESWL. Metabolic treatment with potassium citrate Surgical History H/O esophagogastroduodenoscopy (02/27/21) gastritis, duodenitis History of carpal tunnel release of both wrists History of colonoscopy (02/27/21) descending colon polyp, hemorrhoids History of permanent cardiac pacemaker placement Hx of cataract surgery Hx of shoulder surgery Family History Grandfather CAD (coronary artery disease) Brother Cancer colon cancer Diabetes Mother Diabetes Father No problems noted. Other Hypertension Rheumatoid arthritis Social History Smoking and tobacco status: never smoked Quit status (tobacco): has quit using tobacco Year quit tobacco: 1999 Second hand smoke exposure: No Alcohol intake: former Year of sobriety/quit date alcohol: 1997 Caregiver/support person: Yes Lives independently: Yes Household members: spouse Marital status: service: No Current occupational status: disabled History of recent travel: No Current gender identity: Male Special fernando needs: No Agree to transfusion: Yes Physical Exam Const: COMMON NORMALS: no acute distress, patient oriented x3, no limitations and alert GENERAL APPEARANCE: cooperative NUTRITIONAL APPEARANCE: obese morbidly obese ORIENTATION/CONSCIOUSNESS: Yes awake, Yes oriented to person, Yes oriented to place and Yes oriented to time HENMT: COMMON NORMALS: normocephalic and atraumatic HEAD & SCALP: normal to inspection, normocephalic and atraumatic Neck/C-Spine: COMMON NORMALS: full ROM CERVICAL SPINE: Yes cervical ROM normal, No pain with cervical ROM, No Cervical spine tenderness, No step off deformity and No Paracervical muscle tenderness Chest: OTHER: pt has tenderness to palpation and very mild overlying abrasions to R posterior ribs/chest wall Resp: COMMON NORMALS: normal respiratory effort and clear to auscultation bilaterally AUSCULTATION: clear to auscultation bilaterally Cardio: COMMON NORMALS: regular rate and regular rhythm RATE: regular rate RHYTHM: regular rhythm GI: COMMON NORMALS: Normal to inspection, nondistended, normoactive bowel sounds present, Soft to palpation and non-tender PALPATION: Yes Soft to palpation Back/Pelvis: THORACIC SPINE/UPPER BACK: Yes ROM limited, Yes pain with ROM, Yes thoracic spinal tenderness, Yes paraspinal muscle tenderness and No p araspinal muscle spasm LUMBAR SPINE/LOWER BACK: Yes normal to inspection, Yes lumbar ROM normal, No lumbar spinal tenderness and No paraspinal muscle tenderness PELVIS: Yes buttocks normal SACROILIAC JOINTS: Yes SI joints normal SACRUM: no tenderness COCCYX: no tenderness BACK IMAGE (MALE): 1. TTP; very mild abrasions; no crepitus; some thoracic midline tenderness Extremity: COMMON NORMALS: normal to inspection and full ROM GENERAL: Yes normal exam except as noted Neuro: KEVIN COMA SCALE: document GCS findings [place] coma scale eye opening: Spontaneous [place] coma scale verbal response: Orientated [place] coma scale motor response: Obey commands [place] coma scale total score: 15 COMMON NORMALS: patient oriented x3, moves all extremities, no focal motor deficits and no sensory deficits noted SENSORIUM/ORIENTATION: Yes alert, Yes oriented to person, Yes oriented to place and Yes oriented to time Skin: TRAUMA: abrasion and no lacerations Course Vital Signs: Vital signs: Vital Signs Temperature 97.5 F L 06/13/22 11:58 Pulse Rate 73 06/13/22 12:53 Respiratory Rate 16 06/13/22 12:53 Blood Pressure 89/56 06/13/22 12:53 Pulse Oximetry 96 06/13/22 12:53 Oxygen Delivery Me thod 06/13/22 12:53 MDM - Fall Medical Decision Making CT thoracic and R rib/CXR negative. Patient denies shortness of breath or difficulty breathing. No abdominal pain. Injury occurred 2d ago. Recommend conservative treatment at home. Return to ED precautions given. Lab Data Radiology Impressions Ribs X-Ray 06/13/22 12:12 Impression: 1. No change in cardiomegaly and cardiac pacemaker. 2. Negative right rib detail. Thoracic Spine CT 06/13/22 12:12 IMPRESSION: No acute thoracic spine fractures. Discharge Plan Discharge Patient Disposition: Home Clinical Impression: Contusion of rib on right side Qualifiers: Encounter type: initial encounter Qualified Code(s): S20.211A - Contusion of right front wall of thorax, initial encounter Condition: Stable Prescriptions: No Action aspirin [Aspir-Sagrario] 325 mg tablet,delayed release (DR/EC) 325 mg PO DAILY Hold Instructions: Resume on 12/08/21. carvedilol 25 mg tablet 25 mg PO BID Qty: 180 3RF rosuvastatin 20 mg tablet 20 mg PO DAILY Qty: 90 1RF sertraline 100 mg tablet 100 mg PO DAILY Qty: 30 2RF magnesium L-lactate 84 mg tablet extended release 84 mg PO DAILY Qty: 90 2RF spironolactone 25 mg tablet 12.5 mg PO DAILY Qty: 90 3RF sacubitril-valsartan 97-103 mg tablet 1 tab PO BID Qty: 180 3RF fenofibrate 160 mg tablet 160 mg PO DAILY Qty: 90 1RF metformin 500 mg tablet extended release 24 hr 2,000 mg PO DAILY Qty: 360 1RF albuterol sulfate [ProAir HFA] 90 mcg/actuation HFA aerosol inhaler 2 puff INHALATION Q6H PRN (Reason: shortness of breath or wheezing) Qty: 18 2RF budesonide-formoterol [Symbicort] 160-4.5 mcg/actuation HFA aerosol inhaler 2 puff inhalation BID Qty: 10.2 5RF Hold Instructions: try trelegy (DME) blood-glucose meter [Blood Glucose Monitoring] Kit See Rx Instructions .ROUTE .MEDSUPPLY Qty: 1 0RF Rx Instructions: As directed; to test 2 x day and prn (DME) Blood Glucose Test Strip See Rx Instructions .ROUTE .MEDSUPPLY Qty: 100 11RF Rx Instructions: Check blood sugar 2 x daily and prn Trulicity 0.75 mg/0.5 mL pen injector See Rx Instructions .ROUTE .COMPLEX Qty: 4 5RF Dose Instruction: INJECT 0.75MG (0.5ML) SUBCUTANEOUSLY WEEKLY Rx Instructions: INJECT 0.75MG (0.5ML) SUBCUTANEOUSLY WEEKLY- ON FRIDAY Allergy Relief (cetirizine) 10 mg tablet 10 mg PO DAILY allopurinol 300 mg tablet 300 mg PO DAILY Invokana 300 mg tablet 300 mg PO DAILY Multi For Her 50 Plus 400-80 mcg Capsule 1 cap PO DAILY glipizide 10 mg tablet extended release 24hr 10 mg PO DAILY omeprazole 40 mg capsule,delayed release(DR/EC) 40 mg PO DAILY potassium citrate 10 mEq (1,080 mg) tablet extended release 20 meq PO BID Discharge Orders: Discharge ED (Routine); Ordered 06/13/22 Ordered By: Jeannette Sanchez Referrals: Lucrecia Blandon FNP [Primary Care Provider] - Patient Instructions: Rib Contusion (ED) Coding Level of Care Code ED It Business Systems Analyst for Chg Fwd Exam Comprehensive
[2022-06-13 12:53] VITALS: BP 89/56; PULSE 73; RESP 16; O2SAT 96
[2022-06-13 13:52] VITALS: BP 91/61; PULSE 60; O2SAT 94
== END 2022-06-13 13:53 | disposition home or self-care (01) ==
PROVIDERS: Emergency Provider Physician Assistant; PCP Nurse Practitioner Family
DX: S20.211A Contusion of right front wall of thorax, initial encounter (principal); Z79.84 Long term (current) use of oral hypoglycemic drugs; Z79.82 Long term (current) use of aspirin; E11.9 Type 2 diabetes mellitus without complications; I10 Essential (primary) hypertension; E78.2 Mixed hyperlipidemia; Z95.0 Presence of cardiac pacemaker; Z87.891 Personal history of nicotine dependence; W11.XXXA Fall on and from ladder, initial encounter
CPT/HCPCS: 71101; 72128; 99284

== ENCOUNTER → 2022-06-20 09:39 | Outpatient (BNVA) | payer MEDICAID, SELFPAY | PROVIDERS: PCP Nurse Practitioner Family; Visit Provider Specialist | DX: M12.811 Other specific arthropathies, not elsewhere classified, right shoulder (principal); Z71.89 Other specified counseling | CPT/HCPCS: 20610; J1100; J2795; J3301 ==

== ENCOUNTER 2022-06-27 14:53 | Emergency (ER) | payer MEDICAID, SELFPAY ==
[2022-06-27 15:24] VITALS: BP 117/72; PULSE 50; RESP 16; TEMP 36.5; O2SAT 95; BMI 43.2
--- NOTE | 2022-06-27 15:53 | W.ED.SKABFB ---
HPI - Skin/Abscess/Foreign Bdy General: Chief complaint: Skin/Abscess/Foreign Body Stated complaint: spider bite Time Seen by Provider: 06/27/22 15:39 History of Present Illness: Patient is a 61-year-old male comes to the ED with insect bite to left forearm. Bite occurred back on June 17 and he had some swelling, erythema and pain to the bite area. He was seen on June 19 at [facility] and started on Bactrim and given a steroid shot as well.. Patient took a couple days dose of the Bactrim and stopped taking it because it was bothering his stomach too much. He did not finish out his Bactrim prescription course. He still has some redness now and tenderness over left forearm where bite was but the swelling has improved significantly. Associated symptoms: Deny chills, fever(s), nausea or vomiting Review of Systems Const: Denies: fever(s), chills or fatigue Eyes: Denies: change in vision or eye discomfort ENMT: Denies: throat pain, odynophagia, nasal discharge or nasal congestion Card: Denies: chest pain, palpitations, edema, swelling of feet/ankles, dyspnea on exertion or orthopnea Resp: Denies: dyspnea, productive cough or non-productive cough GI: Denies: abdominal pain, nausea, vomiting, diarrhea, constipation or hematochezia : Denies: flank pain, difficulty urinating, dysuria or hematuria Musc: Denies: neck pain, back pain or extremity swelling Skin/Breast: Reports: rash (Erythemic and tender rash on left forearm ); Denies: new lesions Neuro: Denies: headache(s), numbness in extremities or weakness in extremities [facility] ED PFSH: Medical History Bipolar II disorder Cardiac resynchronization therapy defibrillator ([employer]-D) in place [employer] [address] [place], 07/11/2020 Cardiomyopathy Diabetes Hemorrhoids Hypertension Mixed hyperlipidemia Osteoarthritis of hands, bilateral Pacemaker Psychiatric care Right ureteral calculus Urolithiasis Multi stone former, calcium oxalate mono and dihydrate. Also calcium phosphate. Multiple interventions including endoscopy with laser lithotripsy and ESWL. Metabolic treatment with potassium citrate Surgical History H/O esophagogastroduodenoscopy (02/27/21) gastritis, duodenitis History of carpal tunnel release of both wrists History of colonoscopy (02/27/21) descending colon polyp, hemorrhoids History of permanent cardiac pacemaker placement Hx of cataract surgery Hx of shoulder surgery Family History Grandfather CAD (coronary artery disease) Brother Cancer colon cancer Diabetes Mother Diabetes Father No problems noted. Other Hypertension Rheumatoid arthritis Social History Smoking and tobacco status: never smoked Quit status (tobacco): has quit using tobacco Year quit tobacco: 1999 Second hand smoke exposure: No Alcohol intake: former Year of sobriety/quit date alcohol: 1997 Caregiver/support person: Yes Lives independently: Yes Household members: spouse Marital status: service: No Current occupational status: disabled History of recent travel: No Current gender identity: Male Special fernando needs: No Agree to transfusion: Yes Physical Exam Const: COMMON NORMALS: no acute distress, patient oriented x3 and alert GENERAL APPEARANCE: cooperative HENMT: COMMON NORMALS: normocephalic HEAD & SCALP: normocephalic MOUTH: Normal oral and palatal mucosa present THROAT: posterior oropharynx normal and uvula midline Neck/C-Spine: COMMON NORMALS: supple GENERAL: Yes normal visual inspection Resp: COMMON NORMALS: normal respiratory effort, No retractions, No use of accessory muscles and clear to auscultation bilaterally AUSCULTATION: clear to auscultation bilaterally Cardio: COMMON NORMALS: regular rate, regular rhythm, S1 normal heart sound present, S2 normal heart sound present, No gallops present (Cardio), No clicks present (Cardio), No murmurs present (Cardio) and Peripheral pulses 2+ throughout RATE: regular rate RHYTHM: regular rhythm HEART SOUNDS: S1 normal heart sound present and S2 normal heart sound present PERIPHERAL PULSES: Peripheral pulses 2+ throughout GI: COMMON NORMALS: Normal to inspection, nondistended, normoactive bowel sounds present, Soft to palpation, non-tender and no masses PALPATION: Yes Soft to palpation : COMMON NORMALS: Yes no CVA tenderness BLADDER/KIDNEY EXAM: Yes no CVA tenderness Back/Pelvis: COMMON NORMALS: no CVA tenderness Extremity: NARRATIVE EXTREMITY EXAM: Left forearm?some mild erythema and tenderness. No palpable abscess noted. Rash area was nonfluctuant and indurated. GENERAL: Yes normal exam except as noted Neuro: COMMON NORMALS: patient oriented x3 SENSORIUM/ORIENTATION: Yes alert GAIT: Yes Normal gait present Skin: GENERAL SKIN EXAM: dry skin Course Vital Signs: Vital signs: Vital Signs Temperature 97.7 F 06/27/22 15:24 Pulse Rate 50 L 06/27/22 15:24 Respiratory Rate 16 06/27/22 15:24 Blood Pressure 117/72 06/27/22 15:24 Pulse Oximetry 95 06/27/22 15:24 Oxygen Delivery Me thod 06/27/22 15:24 MDM - Skin/Abscess/Foreign Bdy Medicial Decision Making Patient is a 61-year-old male comes to the ED with insect bite to left forearm. Bite occurred back on June 17 and he had some swelling, erythema and pain to the bite area. He was seen on June 19 at [facility] and started on Bactrim and given a steroid shot as well.. Patient took a couple days dose of the Bactrim and stopped taking it because it was bothering his stomach too much. He did not finish out his Bactrim prescription course. He still has some redness now and tenderness over left forearm where bite was but the swelling has improved significantly. Vitals are stable. Left forearm?some mild erythema and tenderness. No palpable abscess noted. Rash area was nonfluctuant and indurated. Patient was diagnosed with cellulitis and was discharged home with a prescription for clindamycin. He was told to follow-up with his PCP in the next week for reevaluation. Return to ED precautions given. Patient understood and agreed with plan. Discharge Plan Discharge Patient Disposition: Home Clinical Impression: Cellulitis Qualifiers: Site of cellulitis: extremity Site of cellulitis of extremity: upper extremity Laterality: left Qualified Code(s): L03.114 - Cellulitis of left upper limb Condition: Stable Prescriptions: New clindamycin HCl 150 mg capsule 300 mg PO QID 7 Days Qty: 56 0RF No Action aspirin [Aspir-Sagrario] 325 mg tablet,delayed release (DR/EC) 325 mg PO DAILY Hold Instructions: Resume on 12/08/21. carvedilol 25 mg tablet 25 mg PO BID Qty: 180 3RF rosuvastatin 20 mg tablet 20 mg PO DAILY Qty: 90 1RF sertraline 100 mg tablet 100 mg PO DAILY Qty: 30 2RF magnesium L-lactate 84 mg tablet extended release 84 mg PO DAILY Qty: 90 2RF spironolactone 25 mg tablet 12.5 mg PO DAILY Qty: 90 3RF sacubitril-valsartan 97-103 mg tablet 1 tab PO BID Qty: 180 3RF sulfamethoxazole-trimethoprim [Bactrim DS] 800-160 mg tablet 1 tab PO BID 10 Days Qty: 20 0RF fenofibrate 160 mg tablet 160 mg PO DAILY Qty: 90 1RF metformin 500 mg tablet extended release 24 hr 2,000 mg PO DAILY Qty: 360 1RF albuterol sulfate [ProAir HFA] 90 mcg/actuation HFA aerosol inhaler 2 puff INHALATION Q6H PRN (Reason: shortness of breath or wheezing) Qty: 18 2RF budesonide-formoterol [Symbicort] 160-4.5 mcg/actuation HFA aerosol inhaler 2 puff inhalation BID Qty: 10.2 5RF Hold Instructions: try trelegy (DME) blood-glucose meter [Blood Glucose Monitoring] Kit See Rx Instructions .ROUTE .MEDSUPPLY Qty: 1 0RF Rx Instructions: As directed; to test 2 x day and prn (DME) Blood Glucose Test Strip See Rx Instructions .ROUTE .MEDSUPPLY Qty: 100 11RF Rx Instructions: Check blood sugar 2 x daily and prn Trulicity 0.75 mg/0.5 mL pen injector See Rx Instructions .ROUTE .COMPLEX Qty: 4 5RF Dose Instruction: INJECT 0.75MG (0.5ML) SUBCUTANEOUSLY WEEKLY Rx Instructions: INJECT 0.75MG (0.5ML) SUBCUTANEOUSLY WEEKLY- ON FRIDAY Allergy Relief (cetirizine) 10 mg tablet 10 mg PO DAILY allopurinol 300 mg tablet 300 mg PO DAILY Invokana 300 mg tablet 300 mg PO DAILY Multi For Her 50 Plus 400-80 mcg Capsule 1 cap PO DAILY glipizide 10 mg tablet extended release 24hr 10 mg PO DAILY omeprazole 40 mg capsule,delayed release(DR/EC) 40 mg PO DAILY potassium citrate 10 mEq (1,080 mg) tablet extended release 20 meq PO BID Discharge Orders: Discharge ED (Routine); Ordered 06/27/22 Ordered By: Milton Lajas Referrals: Lucrecia Blandon FNP [Primary Care Provider] - Discharge Diet: Regular Discharge Activity: Increase activity as tolerated Patient Instructions: Cellulitis (ED) Activity Restrictions/Additional Instructions: Follow-up with medical provider as directed in the next 5 to 7 days for reevaluation. Take medications as prescribed. Return to the ER or your medical provider if condition worsens. Please read and understand discharge instructions. Thank you for choosing [facility] for your healthcare needs today. Please realize this is an emergency room and that we are providing you with a medical screening exam and this may not be complete and all inclusive of all the testing and or work up that you may need to determine your ailment or severity of your illness. It is very important that you follow up as instructed or that you return to the Emergency Department should you have concerns or if your condition changes or worsens in any way. Coding Level of Care Code ED Charge Master Specialist for Ck Fwd Exam Comprehensive
== END 2022-06-27 16:12 | disposition home or self-care (01) ==
PROVIDERS: Emergency Provider Physician Assistant; PCP Nurse Practitioner Family
DX: L03.114 Cellulitis of left upper limb (principal); Z79.899 Other long term (current) drug therapy; Z79.84 Long term (current) use of oral hypoglycemic drugs; Z79.82 Long term (current) use of aspirin; Z87.891 Personal history of nicotine dependence; E11.9 Type 2 diabetes mellitus without complications; I10 Essential (primary) hypertension; E78.2 Mixed hyperlipidemia; Z95.0 Presence of cardiac pacemaker
CPT/HCPCS: 99283

== ENCOUNTER → 2022-07-22 15:27 | Outpatient (BNVA) | payer MEDICAID, SELFPAY | PROVIDERS: PCP Nurse Practitioner Family; Visit Provider Nurse Practitioner Family | DX: M25.531 Pain in right wrist (principal) | CPT/HCPCS: 73110 ==

== ENCOUNTER 2022-07-25 20:00 | Outpatient (CLI) | payer MEDICAID, SELFPAY | END 2022-07-25 20:01 | disposition home or self-care (01) | LOC: SLEEP 07-26 07:03 | PROVIDERS: PCP Nurse Practitioner Family; Visit Provider Nurse Practitioner Family | DX: G47.33 Obstructive sleep apnea (adult) (pediatric) (principal) | CPT/HCPCS: 95811 ==

== ENCOUNTER → 2022-08-21 11:30 | Outpatient (BNVA) | payer MEDICAID, SELFPAY | PROVIDERS: PCP Nurse Practitioner Family; Visit Provider Internal Medicine Cardiovascular Disease | DX: R06.02 Shortness of breath (principal); I42.0 Dilated cardiomyopathy; I10 Essential (primary) hypertension; R07.9 Chest pain, unspecified; E11.42 Type 2 diabetes mellitus with diabetic polyneuropathy; J44.9 Chronic obstructive pulmonary disease, unspecified; Z95.810 Presence of automatic (implantable) cardiac defibrillator; Z87.891 Personal history of nicotine dependence; R94.31 Abnormal electrocardiogram [ECG] [EKG] | CPT/HCPCS: 36415; 80048; 83880; 99214 ==

== ENCOUNTER → 2022-09-02 10:40 | Outpatient (BNVA) | payer MEDICAID, SELFPAY | PROVIDERS: PCP Nurse Practitioner Family; Visit Provider Nurse Practitioner Family | DX: M75.22 Bicipital tendinitis, left shoulder (principal); E11.42 Type 2 diabetes mellitus with diabetic polyneuropathy; E11.65 Type 2 diabetes mellitus with hyperglycemia; E79.0 Hyperuricemia without signs of inflammatory arthritis and tophaceous disease; J44.9 Chronic obstructive pulmonary disease, unspecified; Z95.0 Presence of cardiac pacemaker; M47.817 Spondylosis without myelopathy or radiculopathy, lumbosacral region; M54.6 Pain in thoracic spine; G89.29 Other chronic pain; E78.2 Mixed hyperlipidemia | CPT/HCPCS: 80053; 80061; 83036; 84443; 84550; 85025 ==

== ENCOUNTER 2022-09-07 12:07 | Emergency (ER) | payer MEDICAID, SELFPAY ==
[2022-09-07] VITALS (13 sets, daily range): BP systolic 109–136; BP diastolic 54–74; PULSE 54–100; RESP 15–26; TEMP 36.9; O2SAT 91–99; BMI 43.7
--- NOTE | 2022-09-07 13:11 | ECG_ITS ---
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 Measurements Intervals [place] Rate: 91 P: 56 KS: 149 QRS: 202 QRSD: 161 T: 45 QT: 382 QTc: 470 Interpretive Statements ELECTRONIC VENTRICULAR PACEMAKER ABNORMAL RHYTHM ECG Compared to ECG 05/31/2022 21:16:57 Atrial-paced complex(es) or rhythm no longer present Electronically Signed On 09-08-2022 10:14:23 CDT by Joaquin Nayak M.D. [id number] f
--- NOTE | 2022-09-07 13:11 | XRR_ITS ---
PROCEDURE INFORMATION: Exam: XR Chest Exam date and time: 09/07/2022 1:26 PM Age: 62 years old Clinical indication: Shortness of breath; Additional info: SOB TECHNIQUE: Imaging protocol: Radiologic exam of the chest. Views: 1 view. COMPARISON: CR XR ribs RT mn 3V w CXR1V [id number] 06/13/2022 12:20 PM FINDINGS: Tubes, catheters and devices: Cardiac device right chest in good position. Lungs: Unremarkable. No consolidation. Pleural spaces: Unremarkable. No pleural effusion. No pneumothorax. Heart/Mediastinum: Unremarkable. No cardiomegaly. Bones/joints: Unremarkable. Other findings: Comparison to prior examination similar findings seen XR/XR chest 1V portable [id number] IMPRESSION: 1. No acute findings. 2. Cardiac device right chest in good position
--- NOTE | 2022-09-07 13:23 | ED_ITS ---
Documented by User: JACK Vanegas 09/08/22 19:22 HPI - SOB/Dyspnea General: Chief Complaint: Shortness of Breath/Dyspnea Stated Complaint: SOB Time Seen by Provider: 09/07/22 13:15 History of Present Illness: HPI Narrative: Patient is a 62-year-old male comes to the ED with shortness of breath. Patient has a past medical history of CHF, COPD, hypertension and has a pacemaker. Patient is not on any oxygen at home but does wear CPAP at night. Symptoms started approximately 3 days ago. He has been having upper respiratory symptoms such as nasal congestion and drainage, fevers and cough. He says his cough is productive with some clear sputum. Shortness of breath gets worse with exertion. Endorses having chills, body aches, nausea and emesis. Denies abdominal pain, chest pain, bladder or bowel symptoms. He has been around his grandkids which were recently sick with similar symptoms. Associated symptoms: Reports fever(s), nausea and vomiting; Deny abdominal pain, chest pain, orthopnea or palpitations Review of Systems Const: Reports: fever(s), chills and body aches; Denies: fatigue Eyes: Denies: change in vision or eye discomfort ENMT: Denies: throat pain, odynophagia, nasal discharge or nasal congestion Card: Denies: chest pain, palpitations, edema, swelling of feet/ankles, dyspnea on exertion or orthopnea Resp: Reports: dyspnea and productive cough; Denies: non-productive cough GI: Reports: nausea and vomiting; Denies: abdominal pain, diarrhea, constipation or hematochezia : Denies: flank pain, difficulty urinating, dysuria or hematuria Musc: Denies: neck pain, back pain or extremity swelling Skin/Breast: Denies: rash or new lesions Neuro: Denies: headache(s), numbness in extremities or weakness in extremities PFS ED PFSH: Medical History Bipolar II disorder Cardiac resynchronization therapy defibrillator (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 [place], 07/11/2020 Cardiomyopathy CHF (congestive heart failure) Diabetes Hemorrhoids Hypertension Mixed hyperlipidemia Osteoarthritis of hands, bilateral Pacemaker Psychiatric care Right ureteral calculus Urolithiasis Multi stone former, calcium oxalate mono and dihydrate. Also calcium phosphate. Multiple interventions including endoscopy with laser lithotripsy and ESWL. Metabolic treatment with potassium citrate Surgical History H/O esophagogastroduodenoscopy (02/27/21) gastritis, duodenitis History of carpal tunnel release of both wrists History of colonoscopy (02/27/21) descending colon polyp, hemorrhoids History of permanent cardiac pacemaker placement Hx of cataract surgery Hx of shoulder surgery Family History Grandfather CAD (coronary artery disease) Brother Cancer colon cancer Diabetes Mother Diabetes Father No problems noted. Other Hypertension Rheumatoid arthritis Social History Smoking and tobacco status: former smoker Quit status (tobacco): has quit using tobacco Year quit tobacco: 1999 Second hand smoke exposure: No Alcohol intake: former Year of sobriety/quit date alcohol: 1997 Caregiver/support person: Yes Lives independently: Yes Household members: spouse Marital status: service: No Current occupational status: disabled History of recent travel: No Current gender identity: Male Special fernando needs: No Agree to transfusion: Yes Physical Exam Const: COMMON NORMALS: patient oriented x3 and alert HENMT: COMMON NORMALS: normocephalic HEAD & SCALP: normocephalic MOUTH: Normal oral and palatal mucosa present THROAT: posterior oropharynx normal and uvula midline Eye: COMMON NORMALS: Equal, round and reactive pupils present and conjunctivae normal CONJUNCTIVA: Yes conjunctivae normal PUPIL: Yes Equal, round and reactive pupils present Neck/C-Spine: COMMON NORMALS: supple GENERAL: Yes normal visual inspection Resp: COMMON NORMALS: normal respiratory effort, No retractions and No use of accessory muscles AUSCULTATION: wheezes expiratory wheezes Cardio: COMMON NORMALS: regular rate, regular rhythm, S1 normal heart sound present, S2 normal heart sound present, No gallops present (Cardio), No clicks present (Cardio), No murmurs present (Cardio) and Peripheral pulses 2+ throu ghout RATE: regular rate RHYTHM: regular rhythm HEART SOUNDS: S1 normal heart sound present and S2 normal heart sound present PERIPHERAL PULSES: Peripheral pulses 2+ throughout GI: COMMON NORMALS: Normal to inspection, nondistended, normoactive bowel sounds present, Soft to palpation, non-tender and no masses PALPATION: Yes Soft to palpation : COMMON NORMALS: Yes no CVA tenderness BLADDER/KIDNEY EXAM: Yes no CVA tenderness Back/Pelvis: COMMON NORMALS: no CVA tenderness Extremity: COMMON NORMALS: normal to inspection Neuro: COMMON NORMALS: patient oriented x3 SENSORIUM/ORIENTATION: Yes alert GAIT: Yes Normal gait present Skin: GENERAL SKIN EXAM: dry skin Course Vital Signs: Vital signs: Vital Signs Temperature 98.4 F 09/07/22 12:09 Pulse Rate 91 09/07/22 18:00 Respiratory Rate 17 09/07/22 18:00 Blood Pressure 120/63 09/07/22 18:00 Pulse Oximetry 91 09/07/22 18:00 Oxygen Delivery Me thod 09/07/22 14:53 MDM - SOB/Dyspnea Medical Decision Making Patient is a 62-year-old male comes to the ED with shortness of breath. Patient has a past medical history of CHF, COPD, hypertension and has a pacemaker. Patient is not on any oxygen at home but does wear CPAP at night. He has been having upper respiratory symptoms such as nasal congestion and drainage, fevers and cough. He says his cough is productive with some clear sputum. Shortness of breath gets worse with exertion. Endorses having chills, body aches, nausea and emesis. Vitals are stable patient O2 sat is 95% on room air. He appears in no acute distress or pain. He has some expiratory wheezing upon auscultation but rest of exam is benign. Chest x-ray showed no acute findings. White blood cell count of 14.7 with a rest of CBC and CMP were unremarkable. Troponins were negative. BNP 3364, EKG shows no acute findings. Influenza and COVID were negative. Patient was given dose of Solu-Medrol, doxycycline and a DuoNeb breathing treatment here in the ED. Patient diagnosed with COPD with acute b ronchitis and was stable for discharge home with outpatient treatment. He was sent home with a prescription for antibiotic and steroid and told to follow-up with his PCP within the next 3 to 5 days for reevaluation. Return to ED precautions given. Patient sees cardiology as well and he was supposed to be set up with an echocardiogram after he saw cardiology clinic back on April 15, 2022. Patient says he has not been called about scheduling an echocardiogram yet. I placed order with case management here in the ED to have patient followed up on and get an outpatient echocardiogram scheduled for him. Lab Data I reviewed the patient's lab results. : 09/07/22 13:21 09/07/22 13:21 Labs/Radiology: Radiology Impressions Chest X-Ray 09/07/22 13:11 IMPRESSION: 1. No acute findings. 2. Cardiac device right chest in good position Laboratory Results WBC 14.7 10^3/uL (4.0-10.0) H 09/07/22 13:21 RBC 4.59 10^6/uL (4.1-5.3) 09/07/22 13:21 Hgb 15.0 g/dL (11.7-16.6) 09/07/22 13:21 Hct 42.3 % (42.0-52.0) 09/07/22 13:21 MCV 92.2 fl (80-94) 09/07/22 13:21 MCH 32.7 pg (28.0-34.0) 09/07/22 13:21 MCHC 35.5 g/dL (30.0-36.0) 09/07/22 13:21 RDW 13.6 % (12.1-15.1) 09/07/22 13:21 Plt Count 210 10^3/cmm (130-400) 09/07/22 13:21 MPV 11.5 fL (7.4-10.4) H 09/07/22 13:21 Neut % (Auto) 71.1 % 09/07/22 13:21 Lymph % (Auto) 17.8 % 09/07/22 13:21 [place] % (Auto) 9.4 % 09/07/22 13:21 Eos % (Auto) 0.7 % 09/07/22 13:21 Baso % (Auto) 0.3 % 09/07/22 13:21 Neut # (Auto) 10.43 10^3/uL (1.8-7.7) H 09/07/22 13:21 Lymph # (Auto) 2.6 10^3/uL (0.8-4.8) 09/07/22 13:21 [place] # (Auto) 1.4 10^3/uL (0.2-0.9) H 09/07/22 13:21 Eos # (Auto) 0.1 10^3/uL (0.0-0.8) 09/07/22 13:21 Baso # (Auto) 0.0 10^3/uL (0.0-0.1) 09/07/22 13:21 Nucleated RBC % (auto) 0 % 09/07/22 13:21 Nucleated RBCs # 0.0 /100WBC 09/07/22 13:21 Sodium 136 mmol/L (136-145) 09/07/22 13:21 Potassium 4.3 mmol/L (3.5-5.1) 09/07/22 13:21 Chloride 101 mmol/L (98-107) 09/07/22 13:21 Carbon Dioxide 24 mmol/L (22-29) 09/07/22 13:21 Anion Gap 15.3 (5-19) 09/07/22 13:21 BUN 18 mg/dL (8-23) 09/07/22 13:21 Creatinine 0.9 mg/dL (0.7-1.2) 09/07/22 13:21 GFR Calculation 85.5 mL/min (90-130) L 09/07/22 13:21 Glucose 106 mg/dL (65-115) 09/07/22 13:21 Calculated Osmolality 284 mOsm/kg (285-295) L 09/07/22 13:21 Calcium 9.4 mg/dL (8.5-10.5) 09/07/22 13:21 Total Bilirubin 0.6 mg/dL (0.15-1.2) 09/07/22 13:21 AST 36 U/L (0-40) 09/07/22 13:21 ALT 38 U/L (0-41) 09/07/22 13:21 Alkaline Phosphatase 52 U/L (40-130) 09/07/22 13:21 Troponin T Baseline 32 ng/L (0-15) H 09/07/22 13:21 Troponin T 120 Minute 29.60 ng/L (0-15) H 09/07/22 15:45 Delta Troponin T -2.40 ABS# (0-10) L 09/07/22 15:45 NT-Pro-B Natriuret Pep 3364 pg/mL (0-125) H 09/07/22 13:21 Total Protein 6.2 g/dL (6.6-8.7) L 09/07/22 13:21 Albumin 4.1 g/dL (3.5-5.2) 09/07/22 13:21 Globulin 2.1 g/dL (1.3-4.6) 09/07/22 13:21 Influenza Type A Ag negative (Negative) 09/07/22 13:28 Influenza Type B Ag negative (Negative) 09/07/22 13:28 SARS-CoV-2 Ag (Rapid) Negative (Negative) 09/07/22 13:28 EKG Data EKG 1: EKG Interpretation Date: 09/07/22 Computer Generated Interpretation: [address] [address] Electrocardiograph Report Signed Patient: Amrik Alexander Unit #: [id number] : 1960 Age/Sex: 62 / M ADM Date: 09/07/22 Loc: ER Room/Bed: Attending Dr: Ordering Provider/Ordering MD: Zander Cheney MD Date of Service: 09/07/22 Procedure(s): ECG 12 lead EKG Accession Number(s): [id number] Report Number: [id number] ? [facility] ? Test Date:? ? 2022-09-07 Pat Name: ? ? Amrik Alexander? Department: ? Patient ID: ? [id number] ? Room: ? Gender: ? ? ? Male ? System Programmer: ? :? 1960 ? Requested By: Zander Cheney Order Number: [id number]? Reading : ? Joaquin Nayak M.D. ? Measurements Intervals? [place]? Rate: ? 91 ? P:? 56 CT: ? 149? QRS:? 202 QRSD: ? 161? T:? 45 QT: ? 382? QTc:? 470? Interpretive Statements ELECTRONIC VENTRICULAR PACEMAKER ABNORMAL RHYTHM ECG Compared to ECG 05/31/2022 21:16:57 Atrial-paced complex(es) or rhythm no longer present Electronically Signed On 09-08-2022 10:14:23 CDT by Joaquin Nayak M.D. [email or web address] [id number] Dictated By: Joaquin Nayak MD Signed By: Joaquin Nayak MD Signed Date/Time: 09/08/22 1015 DD/ 1325 Discharge Plan Discharge Patient Disposition: Home Clinical Impression: COPD with acute bronchitis Condition: Stable Prescriptions: New doxycycline hyclate 100 mg capsule 100 mg PO BID 10 Days Qty: 20 0RF prednisone 20 mg tablet 20 mg PO BID 3 Days Qty: 6 0RF No Action aspirin [Aspir-Sagrario] 325 mg tablet,delayed release (DR/EC) 325 mg PO DAILY Hold Instructions: Resume on 12/08/21. carvedilol 25 mg tablet 25 mg PO BID Qty: 180 3RF magnesium L-lactate 84 mg tablet extended release 84 mg PO DAILY Qty: 90 2RF spironolactone 25 mg tablet 12.5 mg PO DAILY Qty: 90 3RF sacubitril-valsartan 97-103 mg tablet 1 tab PO BID Qty: 180 3RF sertraline 100 mg tablet 100 mg PO DAILY Qty: 30 2RF prednisone 10 mg tablets,dose pack See Rx Instructions PO PER PKG DIR Qty: 21 0RF Rx Instructions: PO PER PKG DIR diclofenac sodium [Voltaren Arthritis Pain] 1 % gel 4 g topical QID Qty: 100 0RF Trulicity 0.75 mg/0.5 mL pen injector See Rx Instructions .ROUTE .COMPLEX Qty: 4 5RF Dose Instruction: INJECT 0.75MG (0.5ML) SUBCUTANEOUSLY WEEKLY Rx Instructions: INJECT 0.75MG (0.5ML) SUBCUTANEOUSLY WEEKLY- ON FRIDAY rosuvastatin 20 mg tablet 20 mg PO DAILY Qty: 90 1RF fenofibrate 160 mg tablet 160 mg PO DAILY Qty: 90 1RF metformin 500 mg tablet extended release 24 hr 2,000 mg PO DAILY Qty: 360 1RF albuterol sulfate [ProAir HFA] 90 mcg/actuation HFA aerosol inhaler 2 puff INHALATION Q6H PRN (Reason: shortness of breath or wheezing) Qty: 18 2RF budesonide-formoterol [Symbicort] 160-4.5 mcg/actuation HFA aerosol inhaler 2 puff inhalation BID Qty: 10.2 5RF Hold Instructions: try trelegy (DME) blood-glucose meter [Blood Glucose Monitoring] Kit See Rx Instructions .ROUTE .MEDSUPPLY Qty: 1 0RF Rx Instructions: As directed; to test 2 x day and prn (DME) Blood Glucose Test Strip See Rx Instructions .ROUTE .MEDSUPPLY Qty: 100 11RF Rx Instructions: Check blood sugar 2 x daily and prn Allergy Relief (cetirizine) 10 mg tablet 10 mg PO DAILY allopurinol 300 mg tablet 300 mg PO DAILY Invokana 300 mg tablet 300 mg PO DAILY Multi For Her 50 Plus 400-80 mcg Capsule 1 cap PO DAILY glipizide 10 mg tablet extended release 24hr 10 mg PO DAILY omeprazole 40 mg capsule,delayed release(DR/EC) 40 mg PO DAILY potassium citrate 10 mEq (1,080 mg) tablet extended release 20 meq PO BID Discharge Orders: Discharge ED (Routine); Ordered 09/07/22 Ordered By: Milton Morales Referrals: Lucrecia Blandon FNP [Primary Care Provider] - Discharge Diet: Regular Discharge Activity: Increase activity as tolerated Patient Instructions: Acute Bronchitis (ED), COPD (Chronic Obstructive Pulmonary Disease) (DC) Activity Restrictions/Additional Instructions: Follow-up with medical provider as directed in the next 5 to 7 days for reevaluation. Case management should be contacting you in the next several days to set up an appointment for your outpatient echocardiogram. Take medications as prescribed. Return to the ER or your medical provider if condition worsens. Please read and understand discharge instructions. Thank you for choosing [facility] for your healthcare needs today. Please realize this is an emergency room and that we are providing you with a medical screening exam and this may not be complete and all inclusive of all the testing and or work up that you may need to determine your ailment or severity of your illness. It is very important that you follow up as instructed or that you return to the Emergency Department should you have concerns or if your condition changes or worsens in any way. Coding Level of Care Code ED Traveling Operator for Chg Fwd Exam Comprehensive Documented by User: Andrei Staley, DO 09/08/22 20:49 HPI - SOB/Dyspnea General: Chief Complaint: Shortness of Breath/Dyspnea Stated Complaint: SOB Time Seen by Provider: 09/07/22 13:15 PFSH ED PFSH: Medical History Bipolar II disorder Cardiac resynchronization therapy defibrillator ([employer]-D) in place [employer] [place], 07/11/2020 Cardiomyopathy CHF (congestive heart failure) Diabetes Hemorrhoids Hypertension Mixed hyperlipidemia Osteoarthritis of hands, bilateral Pacemaker Psychiatric care Right ureteral calculus Urolithiasis Multi stone former, calcium oxalate mono and dihydrate. Also calcium phosphate. Multiple interventions including endoscopy with laser lithotripsy and ESWL. Metabolic treatment with potassium citrate Surgical History H/O esophagogastroduodenoscopy (02/27/21) gastritis, duodenitis History of carpal tunnel release of both wrists History of colonoscopy (02/27/21) descending colon polyp, hemorrhoids History of permanent cardiac pacemaker placement Hx of cataract surgery Hx of shoulder surgery Family History Grandfather CAD (coronary artery disease) Brother Cancer colon cancer Diabetes Mother Diabetes Father No problems noted. Other Hypertension Rheumatoid arthritis Social History Smoking and tobacco status: former smoker Quit status (tobacco): has quit using tobacco Year quit tobacco: 1999 Second hand smoke exposure: No Alcohol intake: former Year of sobriety/quit date alcohol: 1997 Caregiver/support person: Yes Lives independently: Yes Household members: spouse Marital status: service: No Current occupational status: disabled History of recent travel: No Current gender identity: Male Special fernando needs: No Agree to transfusion: Yes Course Vital Signs: Vital signs: Vital Signs Temperature 98.4 F 09/07/22 12:09 Pulse Rate 91 09/07/22 18:00 Respiratory Rate 17 09/07/22 18:00 Blood Pressure 120/63 09/07/22 18:00 Pulse Oximetry 91 09/07/22 18:00 Oxygen Delivery Me thod 09/07/22 14:53 MDM - SOB/Dyspnea Medical Decision Making Patient is a 62-year-old male comes to the ED with shortness of breath. Patient has a past medical history of CHF, COPD, hypertension and has a pacemaker. Patient is not on any oxygen at home but does wear CPAP at night. He has been having upper respiratory symptoms such as nasal congestion and drainage, fevers and cough. He says his cough is productive with some clear sputum. Shortness of breath gets worse with exertion. Endorses having chills, body aches, nausea and emesis. Vitals are stable patient O2 sat is 95% on room air. He appears in no acute distress or pain. He has some expiratory wheezing upon auscultation but rest of exam is benign. Chest x-ray showed no acute findings. White blood cell count of 14.7 with a rest of CBC and CMP were unremarkable. Troponins were negative. BNP 3364, EKG shows no acute findings. Influenza and COVID were negative. Patient was given dose of Solu-Medrol, doxycycline and a DuoNeb breat celia treatment here in the ED. Patient diagnosed with COPD with acute bronchitis and was stable for discharge home with outpatient treatment. He was sent home with a prescription for antibiotic and steroid and told to follow-up with his PCP within the next 3 to 5 days for reevaluation. Return to ED precautions given. Patient sees cardiology as well and he was supposed to be set up with an ech ocardiogram after he saw cardiology clinic back on April 15, 2022. Patient says he has not been called about scheduling an echocardiogram yet. I placed order with case management here in the ED to have patient followed up on and get an outpatient echocardiogram scheduled for him. This patient was originally seen by Mr. Carmen PA-C.? I agree with his history, evaluation, and treatment. Lab Data : 09/07/22 13:21 09/07/22 13:21 Labs/Radiology: Radiology Impressions Chest X-Ray 09/07/22 13:11 IMPRESSION: 1. No acute findings. 2. Cardiac device right chest in good position Laboratory Results WBC 14.7 10^3/uL (4.0-10.0) H 09/07/22 13:21 RBC 4.59 10^6/uL (4.1-5.3) 09/07/22 13:21 Hgb 15.0 g/dL (11.7-16.6) 09/07/22 13:21 Hct 42.3 % (42.0-52.0) 09/07/22 13:21 MCV 92.2 fl (80-94) 09/07/22 13:21 MCH 32.7 pg (28.0-34.0) 09/07/22 13:21 MCHC 35.5 g/dL (30.0-36.0) 09/07/22 13:21 RDW 13.6 % (12.1-15.1) 09/07/22 13:21 Plt Count 210 10^3/cmm (130-400) 09/07/22 13:21 MPV 11.5 fL (7.4-10.4) H 09/07/22 13:21 Neut % (Auto) 71.1 % 09/07/22 13:21 Lymph % (Auto) 17.8 % 09/07/22 13:21 [place] % (Auto) 9.4 % 09/07/22 13:21 Eos % (Auto) 0.7 % 09/07/22 13:21 Baso % (Auto) 0.3 % 09/07/22 13:21 Neut # (Auto) 10.43 10^3/uL (1.8-7.7) H 09/07/22 13:21 Lymph # (Auto) 2.6 10^3/uL (0.8-4.8) 09/07/22 13:21 [place] # (Auto) 1.4 10^3/uL (0.2-0.9) H 09/07/22 13:21 Eos # (Auto) 0.1 10^3/uL (0.0-0.8) 09/07/22 13:21 Baso # (Auto) 0.0 10^3/uL (0.0-0.1) 09/07/22 13:21 Nucleated RBC % (auto) 0 % 09/07/22 13:21 Nucleated RBCs # 0.0 /100WBC 09/07/22 13:21 Sodium 136 mmol/L (136-145) 09/07/22 13:21 Potassium 4.3 mmol/L (3.5-5.1) 09/07/22 13:21 Chloride 101 mmol/L (98-107) 09/07/22 13:21 Carbon Dioxide 24 mmol/L (22-29) 09/07/22 13:21 Anion Gap 15.3 (5-19) 09/07/22 13:21 BUN 18 mg/dL (8-23) 09/07/22 13:21 Creatinine 0.9 mg/dL (0.7-1.2) 09/07/22 13:21 GFR Calculation 85.5 mL/min (90-130) L 09/07/22 13:21 Glucose 106 mg/dL (65-115) 09/07/22 13:21 Calculated Osmolality 284 mOsm/kg (285-295) L 09/07/22 13:21 Calcium 9.4 mg/dL (8.5-10.5) 09/07/22 13:21 Total Bilirubin 0.6 mg/dL (0.15-1.2) 09/07/22 13:21 AST 36 U/L (0-40) 09/07/22 13:21 ALT 38 U/L (0-41) 09/07/22 13:21 Alkaline Phosphatase 52 U/L (40-130) 09/07/22 13:21 Troponin T Baseline 32 ng/L (0-15) H 09/07/22 13:21 Troponin T 120 Minute 29.60 ng/L (0-15) H 09/07/22 15:45 Delta Troponin T -2.40 ABS# (0-10) L 09/07/22 15:45 NT-Pro-B Natriuret Pep 3364 pg/mL (0-125) H 09/07/22 13:21 Total Protein 6.2 g/dL (6.6-8.7) L 09/07/22 13:21 Albumin 4.1 g/dL (3.5-5.2) 09/07/22 13:21 Globulin 2.1 g/dL (1.3-4.6) 09/07/22 13:21 Influenza Type A Ag negative (Negative) 09/07/22 13:28 Influenza Type B Ag negative (Negative) 09/07/22 13:28 SARS-CoV-2 Ag (Rapid) Negative (Negative) 09/07/22 13:28 Discharge Plan Discharge Patient Disposition: Home Clinical Impression: COPD with acute bronchitis Condition: Stable Prescriptions: New doxycycline hyclate 100 mg capsule 100 mg PO BID 10 Days Qty: 20 0RF prednisone 20 mg tablet 20 mg PO BID 3 Days Qty: 6 0RF No Action aspirin [Aspir-Sagrario] 325 mg tablet,delayed release (DR/EC) 325 mg PO DAILY Hold Instructions: Resume on 12/08/21. carvedilol 25 mg tablet 25 mg PO BID Qty: 180 3RF magnesium L-lactate 84 mg tablet extended release 84 mg PO DAILY Qty: 90 2RF spironolactone 25 mg tablet 12.5 mg PO DAILY Qty: 90 3RF sacubitril-valsartan 97-103 mg tablet 1 tab PO BID Qty: 180 3RF sertraline 100 mg tablet 100 mg PO DAILY Qty: 30 2RF prednisone 10 mg tablets,dose pack See Rx Instructions PO PER PKG DIR Qty: 21 0RF Rx Instructions: PO PER PKG DIR diclofenac sodium [Voltaren Arthritis Pain] 1 % gel 4 g topical QID Qty: 100 0RF Trulicity 0.75 mg/0.5 mL pen injector See Rx Instructions .ROUTE .COMPLEX Qty: 4 5RF Dose Instruction: INJECT 0.75MG (0.5ML) SUBCUTANEOUSLY WEEKLY Rx Instructions: INJECT 0.75MG (0.5ML) SUBCUTANEOUSLY WEEKLY- ON FRIDAY rosuvastatin 20 mg tablet 20 mg PO DAILY Qty: 90 1RF fenofibrate 160 mg tablet 160 mg PO DAILY Qty: 90 1RF metformin 500 mg tablet extended release 24 hr 2,000 mg PO DAILY Qty: 360 1RF albuterol sulfate [ProAir HFA] 90 mcg/actuation HFA aerosol inhaler 2 puff INHALATION Q6H PRN (Reason: shortness of breath or wheezing) Qty: 18 2 RF budesonide-formoterol [Symbicort] 160-4.5 mcg/actuation HFA aerosol inhaler 2 puff inhalation BID Qty: 10.2 5RF Hold Instructions: try trelegy (DME) blood-glucose meter [Blood Glucose Monitoring] Kit See Rx Instructions .ROUTE .MEDSUPPLY Qty: 1 0RF Rx Instructions: As directed; to test 2 x day and prn (DME) Blood Glucose Test Strip See Rx Instructions .ROUTE .MEDSUPPLY Qty: 100 11RF Rx Instructions: Check blood sugar 2 x daily and prn Allergy Relief (cetirizine) 10 mg tablet 10 mg PO DAILY allopurinol 300 mg tablet 300 mg PO DAILY Invokana 300 mg tablet 300 mg PO DAILY Multi For Her 50 Plus 400-80 mcg Capsule 1 cap PO DAILY glipizide 10 mg tablet extended release 24hr 10 mg PO DAILY omeprazole 40 mg capsule,delayed release(DR/EC) 40 mg PO DAILY potassium citrate 10 mEq (1,080 mg) tablet extended release 20 meq PO BID Discharge Orders: Discharge ED (Routine); Ordered 09/07/22 Ordered By: Milton Morales Referrals: Lucrecia Blandon FNP [Primary Care Provider] - Discharge Diet: Regular Discharge Activity: Increase activity as tolerated Patient Instructions: Acute Bronchitis (ED), COPD (Chronic Obstructive Pulmonary Disease) (DC) Activity Restrictions/Additional Instructions: Follow-up with medical provider as directed in the next 5 to 7 days for reevaluation. Case management should be contacting you in the next several days to set up an appointment for your outpatient echocardiogram. Take medications as prescribed. Return to the ER or your medical provider if condition worsens. Please read and understand discharge instructions. Thank you for choosing [facility] for your healthcare needs today. Please realize this is an emergency room and that we are providing you with a medical screening exam and this may not be complete and all inclusive of all the testing and or work up that you may need to determine your ailment or severity of your illness. It is very important that you follow up as instructed or that you return to the Emergency Department should you have concerns or if your condition changes or worsens in any way. Coding Level of Care Code ED Traveling Operator for Ck Fwd Exam Comprehensive
--- NOTE | 2022-09-07 13:24 | PC.NURSE ---
pt placed on continuos spo2, nibp, and cm.
[2022-09-07 13:53] LABS: Basophils % 0.3 %; Eosinophils # 0.1 10^3/uL (0.0-0.8); Eosinophils % 0.7 %; Hematocrit 42.3 % (42.0-52.0); Lymphocytes # 2.6 10^3/uL (0.8-4.8); Lymphocytes % 17.8 %; Mean Corpuscular HGB Conc 35.5 g/dL (30.0-36.0); Mean Corpuscular Hemoglobin 32.7 pg (28.0-34.0); Mean Corpuscular Volume 92.2 fl (80-94); Mean Platelet Volume 11.5 fL (7.4-10.4); Monocytes # 1.4 10^3/uL (0.2-0.9); Monocytes % 9.4 %; Neutrophils # 10.43 10^3/uL (1.8-7.7); Neutrophils % 71.1 %; Nucleated Red Blood Cells % 0 %; Platelet Count 210 10^3/cmm (130-400); Red Blood Count 4.59 10^6/uL (4.1-5.3); Red Cell Distribution Width 13.6 % (12.1-15.1); White Blood Count 14.7 10^3/uL (4.0-10.0)
[2022-09-07 14:07] LABS: Influenza A by IFA negative (Negative); Influenza B by IFA negative (Negative)
[2022-09-07 14:11] LABS: Troponin(5th) Baseline 32 ng/L (0-15)
[2022-09-07 14:21] LABS: Alanine Aminotransferase 38 U/L (0-41); Albumin Level 4.1 g/dL (3.5-5.2); Alkaline Phosphatase 52 U/L (40-130); Aspartate Amino Transferase 36 U/L (0-40); Blood Urea Nitrogen 18 mg/dL (8-23); Calcium 9.4 mg/dL (8.5-10.5); Carbon Dioxide 24 mmol/L (22-29); Chloride 101 mmol/L (98-107); Globulin 2.1 g/dL (1.3-4.6); Glomerular Filtration Rate 85.5 mL/min (90-130); Glucose 106 mg/dL (65-115); NT Pro B Type Natriuretic Pept 3364 pg/mL (0-125); Osmolality Calculated 284 mOsm/kg (285-295); Sodium 136 mmol/L (136-145); Total Bilirubin 0.6 mg/dL (0.15-1.2); Total Protein 6.2 g/dL (6.6-8.7)
[2022-09-07 14:22] LABS: Anion Gap 15.3 (5-19); Potassium 4.3 mmol/L (3.5-5.1)
[2022-09-07 14:24] LABS: SARS Covid-2 Antigen Negative (Negative)
[2022-09-07] MEDS: ipratropium-albuterol 3 mL Neb 6 ML INHALATION (14:52)
[2022-09-07] MEDS: doxycycline 100 mg Tablet PO (18:09)
--- NOTE | 2022-09-10 14:38 | DCPLANNER ---
Addendum entered by Mayte Stafford 10/31/22 10:14: Patient had an echo scheduled - patient did attend appointment. Addendum entered by Mayte Stafford 10/07/22 09:00: Patient has a followup appointment scheduled for Tuesday, October 11, 2022 at 10:15. Centralized scheduling will call patient with appointment information. Original Note: sales planning manager had message to schedule an outpatient echocardiogram for patient. sales planning manager faxed signed order to centralized scheduling, who will call patient with appointment information.
== END 2022-09-07 18:17 | disposition home or self-care (01) ==
PROVIDERS: Emergency Medicine; Emergency Provider Physician Assistant; PCP Nurse Practitioner Family
DX: J44.0 Chronic obstructive pulmonary disease with (acute) lower respiratory infection (principal); J20.9 Acute bronchitis, unspecified; Z79.85 Long-term (current) use of injectable non-insulin antidiabetic drugs; Z79.84 Long term (current) use of oral hypoglycemic drugs; Z79.82 Long term (current) use of aspirin; Z20.822 Contact with and (suspected) exposure to COVID-19; Z87.891 Personal history of nicotine dependence; I11.0 Hypertensive heart disease with heart failure; I50.9 Heart failure, unspecified; E11.9 Type 2 diabetes mellitus without complications; E78.2 Mixed hyperlipidemia; Z95.0 Presence of cardiac pacemaker
CPT/HCPCS: 71045; 80053; 83880; 84484; 85025; 87426; 87804; 93005; 94640; 96374; 99285; J2930

== ENCOUNTER → 2022-09-09 09:31 | Outpatient (BNVA) | payer MEDICAID, SELFPAY | PROVIDERS: PCP Nurse Practitioner Family; Visit Provider Nurse Practitioner Family | DX: R05.9 Cough, unspecified (principal); R06.02 Shortness of breath; J44.0 Chronic obstructive pulmonary disease with (acute) lower respiratory infection; J20.9 Acute bronchitis, unspecified | CPT/HCPCS: 71046; 85025 ==

== ENCOUNTER 2022-09-18 02:10 | Emergency (ER) | payer MEDICAID, SELFPAY ==
[2022-09-18] VITALS (16 sets, daily range): BP systolic 112–142; BP diastolic 79–92; PULSE 94–102; RESP 4–40; TEMP 36.8; O2SAT 94–97; BMI 43.2
--- NOTE | 2022-09-18 02:20 | XRR_ITS ---
PROCEDURE INFORMATION: Exam: XR Chest Exam date and time: 09/18/2022 3:24 AM Age: 62 years old Clinical indication: Cough and shortness of breath; Prior surgery; Surgery type: Pacemaker; Patient HX: Cough, congestion, and SOB TECHNIQUE: Imaging protocol: Radiologic exam of the chest. Views: 1 view. COMPARISON: CR XR chest 2V* [id number] 09/09/2022 9:41 AM FINDINGS: Tubes, catheters and devices: A right pacemaker device is present and its leads are in appropriate position. Lungs: There is no evidence of focal pulmonary consolidation. Pleural spaces: No pleural effusion or pneumothorax. Heart/Mediastinum: The heart is mildly enlarged. Bones/joints: No acute fracture is identified. XR/XR chest 1V portable [id number] IMPRESSION: 1. Mild cardiomegaly. 2. No acute findings.
--- NOTE | 2022-09-18 02:25 | ECG_ITS ---
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 Measurements Intervals [place] Rate: 96 P: 74 MD: 163 QRS: 57 QRSD: 146 T: 69 QT: 360 QTc: 456 Interpretive Statements A sens V paced rhythm Compared to ECG 09/07/2022 13:25:29 No significant change Electronically Signed On 09-18-2022 8:48:20 [place] by Felicity Haro M.D. [id number]
--- NOTE | 2022-09-18 02:27 | ED_ITS ---
HPI - SOB/Dyspnea General: Chief Complaint: Shortness of Breath/Dyspnea Stated Complaint: SOB Time Seen by Provider: 09/18/22 02:13 Source: patient Mode of arrival: ambulatory Limitations: no limitations History of Present Illness: HPI Narrative: 62-year-old male who has a history of COPD states has been having increasing shortness of breath over the last 2 hours. Has had a slight cough with congestion denies any fever denies any vomiting denies any chest pain he is in no distress here he does appear anxious his pulse ox here is 97% here on room air. Associated symptoms: Deny abdominal pain, chest pain, fever(s), nausea or vomiting Review of Systems Const: Denies: fever(s), chills, body aches or change in appetite Eyes: Denies: blurry vision or eye discomfort ENMT: Denies: throat pain or dental pain Card: Denies: chest pain Resp: Reports: dyspnea GI: Denies: abdominal pain, nausea, vomiting or diarrhea : Denies: dysuria Musc: Denies: neck pain or back pain Skin/Breast: Denies: rash Neuro: Denies: headache(s) Psych: Denies: depression Surinder/Lymph: Denies: easy bruising All/Imm: Denies: urticaria PFSH ED PFSH: Medical History Bipolar II disorder Cardiac resynchronization therapy defibrillator ([employer]-D) in place [facility] [address] [place], 07/11/2020 Cardiomyopathy CHF (congestive heart failure) Diabetes Hemorrhoids Hypertension Mixed hyperlipidemia Osteoarthritis of hands, bilateral Pacemaker Psychiatric care Right ureteral calculus Urolithiasis Multi stone former, calcium oxalate mono and dihydrate. Also calcium phosphate. Multiple interventions including endoscopy with laser lithotripsy and ESWL. Metabolic treatment with potassium citrate Surgical History H/O esophagogastroduodenoscopy (02/27/21) gastritis, duodenitis History of carpal tunnel release of both wrists History of colonoscopy (02/27/21) descending colon polyp, hemorrhoids History of permanent cardiac pacemaker placement Hx of cataract surgery Hx of shoulder surgery Family History Grandfather CAD (coronary artery disease) Brother Cancer colon cancer Diabetes Mother Diabetes Father No problems noted. Other Hypertension Rheumatoid arthritis Social History Smoking and tobacco status: former smoker Quit status (tobacco): has quit using tobacco Year quit tobacco: 1999 Second hand smoke exposure: No Alcohol intake: former Year of sobriety/quit date alcohol: 1997 Caregiver/support person: Yes Lives independently: Yes Household members: spouse Marital status: service: No Current occupational status: disabled History of recent travel: No Current gender identity: Male Special fernando needs: No Agree to transfusion: Yes Physical Exam Const: COMMON NORMALS: no acute distress, patient oriented x3 and healthy appearing GENERAL APPEARANCE: anxious HENMT: COMMON NORMALS: normocephalic and atraumatic HEAD & SCALP: normocephalic and atraumatic Eye: COMMON NORMALS: Equal, round and reactive pupils present and EOMs intact bilaterally PUPIL: Yes Equal, round and reactive pupils present Neck/C-Spine: COMMON NORMALS: full ROM and supple Chest: COMMONS NORMALS: normal inspection of the chest and normal palpation of entire chest wall Resp: COMMON NORMALS: normal respiratory effort, No retractions, No use of accessory muscles and clear to auscultation bilaterally AUSCULTATION: clear to auscultation bilaterally Cardio: COMMON NORMALS: regular rate, regular rhythm and No murmurs present ( Cardio) RATE: regular rate RHYTHM: regular rhythm GI: COMMON NORMALS: Normal to inspection, nondistended, normoactive bowel sounds present, Soft to palpation, non-tender and no masses PALPATION: Yes Soft to palpation Extremity: COMMON NORMALS: normal to inspection and full ROM Neuro: COMMON NORMALS: patient oriented x3, moves all extremities and no focal motor deficits Psych: COMMON NORMALS: mental status grossly normal, Normal thought process present and cooperative THOUGHT PROCESS: Normal thought process present Skin: COMMON NORMALS: no rashes or lesions noted and no wounds GENERAL SKIN EXAM: no rashes or lesions noted Course Vital Signs: Vital signs: Vital Signs Temperature 98.2 F 09/18/22 02:18 Pulse Rate 97 09/18/22 02:18 Respiratory Rate 27 H 09/18/22 02:18 Blood Pressure 142/92 09/18/22 02:18 Pulse Oximetry 97 09/18/22 02:18 Oxygen Delivery Me thod 09/18/22 02:18 MDM - SOB/Dyspnea Medical Decision Making Patient presents here shortness of breath he was quite anxious when he got here he feels much improved here after Ativan he is well-appearing here he has no signs of bone he does have a leukocytosis he did just finished a course of steroids which could have caused this. He is stable for discharge he is to follow-up PCP and return if worsening. Lab Data : 09/18/22 02:30 09/18/22 02:30 Labs/Radiology: Laboratory Results WBC 19.6 10^3/uL (4.0-10.0) H 09/18/22 02:30 RBC 4.93 10^6/uL (4.1-5.3) 09/18/22 02:30 Hgb 15.7 g/dL (11.7-16.6) 09/18/22 02:30 Hct 46.0 % (42.0-52.0) 09/18/22 02:30 MCV 93.3 fl (80-94) 09/18/22 02:30 MCH 31.8 pg (28.0-34.0) 09/18/22 02:30 MCHC 34.1 g/dL (30.0-36.0) 09/18/22 02:30 RDW 13.7 % (12.1-15.1) 09/18/22 02:30 Plt Count 212 10^3/cmm (130-400) 09/18/22 02:30 MPV 11.1 fL (7.4-10.4) H 09/18/22 02:30 Neut % (Auto) 81.2 % 09/18/22 02:30 Lymph % (Auto) 12.3 % 09/18/22 02:30 [place] % (Auto) 4.8 % 09/18/22 02:30 Eos % (Auto) 0.7 % 09/18/22 02:30 Baso % (Auto) 0.3 % 09/18/22 02:30 Neut # (Auto) 15.91 10^3/uL (1.8-7.7) H 09/18/22 02:30 Lymph # (Auto) 2.4 10^3/uL (0.8-4.8) 09/18/22 02:30 [place] # (Auto) 1.0 10^3/uL (0.2-0.9) H 09/18/22 02:30 Eos # (Auto) 0.1 10^3/uL (0.0-0.8) 09/18/22 02:30 Baso # (Auto) 0.1 10^3/uL (0.0-0.1) 09/18/22 02:30 Nucleated RBC % (auto) 0 % 09/18/22 02:30 Nucleated RBCs # 0.0 /100WBC 09/18/22 02:30 Sodium 139 mmol/L (136-145) 09/18/22 02:30 Potassium 4.8 mmol/L (3.5-5.1) 09/18/22 02:30 Chloride 105 mmol/L (98-107) 09/18/22 02:30 Carbon Dioxide 23 mmol/L (22-29) 09/18/22 02:30 Anion Gap 15.8 (5-19) 09/18/22 02:30 BUN 18 mg/dL (8-23) 09/18/22 02:30 Creatinine 0.9 mg/dL (0.7-1.2) 09/18/22 02:30 GFR Calculation 85.5 mL/min (90-130) L 09/18/22 02:30 Glucose 146 mg/dL (65-115) H 09/18/22 02:30 Calculated Osmolality 293 mOsm/kg (285-295) 09/18/22 02:30 Calcium 9.6 mg/dL (8.5-10.5) 09/18/22 02:30 Total Bilirubin 0.4 mg/dL (0.15-1.2) 09/18/22 02:30 AST 16 U/L (0-40) 09/18/22 02:30 ALT 23 U/L (0-41) 09/18/22 02:30 Alkaline Phosphatase 47 U/L (40-130) 09/18/22 02:30 Troponin T Baseline 25 ng/L (0-15) H 09/18/22 02:30 NT-Pro-B Natriuret Pep 430 pg/mL (0-125) H 09/18/22 02:30 Total Protein 6.9 g/dL (6.6-8.7) 09/18/22 02:30 Albumin 4.0 g/dL (3.5-5.2) 09/18/22 02:30 Globulin 2.9 g/dL (1.3-4.6) 09/18/22 02:30 Influenza Type A Ag negative (Negative) 09/18/22 02:40 Influenza Type B Ag negative (Negative) 09/18/22 02:40 SARS-CoV-2 Ag (Rapid) negative (Negative) 09/18/22 02:40 EKG Data EKG 1: I personally reviewed and interpreted this EKG as follows: EKG Interpretation Date: 09/18/22 EKG interpretation time: 02:25 Interpretation: paced hr [address] or t wave abnormalities qrs 146 qtc 416 Discharge Plan Discharge Patient Disposition: Home Clinical Impression: Dyspnea Condition: Stable Prescriptions: No Action aspirin [Aspir-Sagrario] 325 mg tablet,delayed release (DR/EC) 325 mg PO DAILY Hold Instructions: Resume on 12/08/21. carvedilol 25 mg tablet 25 mg PO BID Qty: 180 3RF magnesium L-lactate 84 mg tablet extended release 84 mg PO DAILY Qty: 90 2RF spironolactone 25 mg tablet 12.5 mg PO DAILY Qty: 90 3RF sacubitril-valsartan 97-103 mg tablet 1 tab PO BID Qty: 180 3RF sertraline 100 mg tablet 100 mg PO DAILY Qty: 30 2RF diclofenac sodium [Voltaren Arthritis Pain] 1 % gel 4 g topical QID Qty: 100 0RF Trulicity 0.75 mg/0.5 mL pen injector See Rx Instructions .ROUTE .COMPLEX Qty: 4 5RF Dose Instruction: INJECT 0.75MG (0.5ML) SUBCUTANEOUSLY WEEKLY Rx Instructions: INJECT 0.75MG (0.5ML) SUBCUTANEOUSLY WEEKLY- ON FRIDAY rosuvastatin 20 mg tablet 20 mg PO DAILY Qty: 90 1RF fenofibrate 160 mg tablet 160 mg PO DAILY Qty: 90 1RF metformin 500 mg tablet extended release 24 hr 2,000 mg PO DAILY Qty: 360 1RF albuterol sulfate [ProAir HFA] 90 mcg/actuation HFA aerosol inhaler 2 puff INHALATION Q6H PRN (Reason: shortness of breath or wheezing) Qty: 18 2RF budesonide-formoterol [Symbicort] 160-4.5 mcg/actuation HFA aerosol inhaler 2 puff inhalation BID Qty: 10.2 5RF Hold Instructions: try trelegy albuterol sulfate 2.5 mg /3 mL (0.083 %) solution for nebulization 2.5 mg inhalation QID PRN (Reason: shortness of breath or wheezing) Qty: 180 2RF (DME) nebulizer machine with tubing and mask See Rx Instructions .Route .MEDSUPPLY Qty: 1 0RF Rx Instructions: As directed fluticasone propionate [Flonase Allergy Relief] 50 mcg/actuation spray,suspension 2 spray intranasal DAILY Qty: 16 5RF Rx Instructions: administer into each nostril (DME) blood-glucose meter [Blood Glucose Monitoring] Kit See Rx Instructions .ROUTE .MEDSUPPLY Qty: 1 0RF Rx Instructions: As directed; to test 2 x day and prn (DME) Blood Glucose Test Strip See Rx Instructions .ROUTE .MEDSUPPLY Qty: 100 11RF Rx Instructions: Check blood sugar 2 x daily and prn Allergy Relief (cetirizine) 10 mg tablet See Rx Instructions .ROUTE .COMPLEX Qty: 90 1RF Dose Instruction: Take 1 tablet by mouth once daily Rx Instructions: Take 1 tablet by mouth once daily omeprazole 40 mg capsule,delayed release(DR/EC) See Rx Instructions .ROUTE .COMPLEX Qty: 90 1RF Dose Instruction: Take 1 capsule by mouth once daily Rx Instructions: Take 1 capsule by mouth once daily allopurinol 300 mg tablet 300 mg PO DAILY Invokana 300 mg tablet 300 mg PO DAILY Multi For Her 50 Plus 400-80 mcg Capsule 1 cap PO DAILY glipizide 10 mg tablet extended release 24hr 10 mg PO DAILY potassium citrate 10 mEq (1,080 mg) tablet extended release 20 meq PO BID Discharge Orders: Discharge ED (Routine); Ordered 09/18/22 Ordered By: Gurvinder Felton Referrals: Lucrecia Blandon FNP [Primary Care Provider] - 1-3 days Discharge Diet: Advance as tolerated Discharge Activity: Resume usual activity Patient Instructions: Dyspnea (ED) Coding Level of Care Code ED Marine Structural Designer for Chg Fwd Exam Comprehensive
[2022-09-18 02:36] LABS: Basophils # 0.1 10^3/uL (0.0-0.1); Basophils % 0.3 %; Eosinophils # 0.1 10^3/uL (0.0-0.8); Eosinophils % 0.7 %; Hemoglobin 15.7 g/dL (11.7-16.6); Lymphocytes # 2.4 10^3/uL (0.8-4.8); Lymphocytes % 12.3 %; Mean Corpuscular HGB Conc 34.1 g/dL (30.0-36.0); Mean Corpuscular Hemoglobin 31.8 pg (28.0-34.0); Mean Corpuscular Volume 93.3 fl (80-94); Mean Platelet Volume 11.1 fL (7.4-10.4); Monocytes % 4.8 %; Neutrophils # 15.91 10^3/uL (1.8-7.7); Neutrophils % 81.2 %; Nucleated Red Blood Cells % 0 %; Platelet Count 212 10^3/cmm (130-400); Red Blood Count 4.93 10^6/uL (4.1-5.3); Red Cell Distribution Width 13.7 % (12.1-15.1); White Blood Count 19.6 10^3/uL (4.0-10.0)
[2022-09-18] MEDS: LORazepam 1 mg Tablet PO (02:40)
[2022-09-18] MEDS: dexamethasone 10 mg/mL INJ IVP (02:40)
[2022-09-18 02:53] LABS: Troponin(5th) Baseline 25 ng/L (0-15)
[2022-09-18 02:59] LABS: Influenza A by IFA negative (Negative); Influenza B by IFA negative (Negative); SARS Covid-2 Antigen negative (Negative)
[2022-09-18 03:03] LABS: Alanine Aminotransferase 23 U/L (0-41); Alkaline Phosphatase 47 U/L (40-130); Anion Gap 15.8 (5-19); Aspartate Amino Transferase 16 U/L (0-40); Blood Urea Nitrogen 18 mg/dL (8-23); Calcium 9.6 mg/dL (8.5-10.5); Carbon Dioxide 23 mmol/L (22-29); Chloride 105 mmol/L (98-107); Globulin 2.9 g/dL (1.3-4.6); Glomerular Filtration Rate 85.5 mL/min (90-130); Glucose 146 mg/dL (65-115); NT Pro B Type Natriuretic Pept 430 pg/mL (0-125); Osmolality Calculated 293 mOsm/kg (285-295); Potassium 4.8 mmol/L (3.5-5.1); Sodium 139 mmol/L (136-145); Total Bilirubin 0.4 mg/dL (0.15-1.2); Total Protein 6.9 g/dL (6.6-8.7)
== END 2022-09-18 04:19 | disposition home or self-care (01) ==
PROVIDERS: Emergency Provider Emergency Medicine; PCP Nurse Practitioner Family
DX: R06.00 Dyspnea, unspecified (principal); J44.9 Chronic obstructive pulmonary disease, unspecified
CPT/HCPCS: 71045; 80053; 83880; 84484; 85025; 87426; 87804; 93005; 96374; 99285; J1100

== ENCOUNTER → 2022-09-26 09:11 | Outpatient (BNVA) | payer MEDICAID, SELFPAY | PROVIDERS: PCP Nurse Practitioner Family; Visit Provider Specialist | DX: M75.21 Bicipital tendinitis, right shoulder (principal); Z45.02 Encounter for adjustment and management of automatic implantable cardiac defibrillator | CPT/HCPCS: 20610; 93284; J1100; J2795; J3301 ==

== ENCOUNTER 2022-10-11 10:06 | Outpatient (CLI) | payer MEDICAID, SELFPAY ==
--- NOTE | 2022-10-11 10:15 | USCV_ITS ---
Catherine Amrik Age: 62 Gender: M : 1960 Exam Date: 10/11/2022 10:43 Ordering Phys: Joe Holder MD ([email or web address]) Technologist: MARC Exam Location: [facility] [place] Indication: CHEST PAIN, CARDIOMEGLY BP: 124 / 80 HR: 74 Rhythm: Atrial fibrillation Technical Quality: Poor because of body habitus MEASUREMENTS (Male / Female) Normal Values 2D ECHO LVOT Diameter 2.0 cm LV Ejection Fraction MOD 2C 26.8 % LV Ejection Fraction 2C AL 29.6 % LA Diameter 4.3 cm LA Width 4.3 cm LA Height 6.3 cm RA Width 4.3 cm RA Height 5.0 cm Aorta at Sinotubular Diameter 2.8 cm IVC Diameter 2.1 cm M-MODE Aortic Annulus Diameter 2.9 cm LA Ao Ratio MM 1.4 MV E Point Septal Separation 2.1 cm DOPPLER AV Peak Velocity 153.0 cm/s LVOT Peak Velocity 80.0 cm/s AV Area Cont Eq vti 1.4 cm squared AV Area Cont Eq pk 1.6 cm squared MV Peak Velocity 105.0 cm/s MV Area PHT 5.0 cm squared MV E' Velocity 41.5 cm/s Mitral E to MV E' Ratio 9.8 Mitral E to LV E' Lateral Ratio 13.2 Mitral E to LV E' Septal Ratio 7.9 TR Peak Velocity 225.0 cm/s TR Peak Gradient 20.3 mmHg TR Mean Velocity 189.9 cm/s TR Mean Gradient 14.7 mmHg TR Velocity Time Integral 76.0 cm TV Peak E Velocity 52.0 cm/s Right Atrial Pressure 8.0 mmHg Pulmonary Artery Systolic Pressu 28.3 mmHg PV Peak Velocity 105.0 cm/s RV Acceleration Time 0.1 s RV Ejection Time 0.3 s RV AcT/ET 0.3 FINDINGS Left Ventricle Technically limited quality echocardiogram because of poor ultrasonic windows. Grossly left ventricle is dilated and LV systolic function appears to be severely reduced. Accurate assessment of regional wall motion abnormalities is not possible because of poor ultrasonic windows. Right Ventricle Grossly normal Right Atrium Not well-visualized Left Atrium Dilated Mitral Valve Grossly normal. Mild mitral regurgitation. Aortic Valve Not well-visualized. No significant stenosis or regurgitation is seen. Tricuspid Valve Mild tricuspid regurgitation. Pulmonary artery systolic pressure is normal Pulmonic Valve Not well-visualized Pericardium Normal Aorta Normal in size IVC Appears to be normal CONCLUSIONS Technically limited quality echocardiogram because of poor ultrasonic windows. Grossly left ventricle is dilated and LV systolic function appears to be severely reduced. Accurate assessment of regional wall motion abnormalities is not possible because of poor windows. Left atrial enlargement Mild mitral regurgitation Valvular structures are not well visualized. Mild tricuspid regurgitation Recommend a limited echocardiogram with contrast to accurately assess regional wall motion abnormalities and EF. Can not compare with prior echocardiogram from 2016, because of poor ultrasonic windows, however EF was severely reduced at that time as well. Reese Andrew MD (Electronically Signed) Final Date: 28 October 2022 08:40 S
== END 2022-10-11 10:07 | disposition home or self-care (01) ==
LOC: RAD 10:07
PROVIDERS: PCP Nurse Practitioner Family; Visit Provider Internal Medicine Cardiovascular Disease
DX: I48.91 Unspecified atrial fibrillation (principal); R07.9 Chest pain, unspecified; I51.7 Cardiomegaly; I34.0 Nonrheumatic mitral (valve) insufficiency
CPT/HCPCS: 93306

== ENCOUNTER → 2022-11-12 16:41 | Outpatient (BNVA) | payer MEDICAID, SELFPAY | PROVIDERS: PCP Nurse Practitioner Family; Visit Provider Nurse Practitioner Family | DX: R50.9 Fever, unspecified (principal); Z20.822 Contact with and (suspected) exposure to COVID-19 | CPT/HCPCS: 87400; 87426 ==

== ENCOUNTER → 2022-11-20 09:59 | Outpatient (BNVA) | payer MEDICAID, SELFPAY | PROVIDERS: PCP Nurse Practitioner Family; Visit Provider Nurse Practitioner Family | DX: Z20.822 Contact with and (suspected) exposure to COVID-19 (principal) | CPT/HCPCS: 87426 ==

== ENCOUNTER 2022-11-23 13:34 | Emergency (ER) | payer MEDICAID, SELFPAY ==
[2022-11-23 13:39] VITALS: BP 124/82; PULSE 63; RESP 18; TEMP 36.9; O2SAT 97
[2022-11-23] MEDS: ketorolac 60 mg/2 mL INJ IM (16:57)
[2022-11-23] MEDS: orphenadrine 30 mg/mL Inj 2 mL 60 MG IM (16:57)
[2022-11-23] MEDS: dexamethasone 10 mg/mL INJ IM (16:58)
--- NOTE | 2022-11-23 17:14 | W.ED.BACK ---
Documented by User: BARBY Clayton 11/24/22 07:05 HPI - Back Pain/Injury General: Chief Complaint: Back Pain/Injury Stated Complaint: low back pain Time Seen by Provider: 11/23/22 16:19 History of Present Illness: Mr. Alexander is a 62-year-old man that presents to the emergency department with complaints of lumbar back pain that radiates down the right lower extremity. Patient reports pain radiates into the anterior knee intermittently. This all started approximately 1 week ago and its progressively worsened. She denies any saddle paresthesias, loss of bowel or bladder control, or weakness. Patient does state he has difficulty ambulating up stairs or over a curb but this is due to pain. Patient's pain in his back is worse than the lower extremities He has trialed [id number] remedies such as Tylenol and ibuprofen without relief. Associated symptoms: Deny abdominal pain, chills, difficulty walking, dysuria, fatigue, fever(s), hematuria, nausea, urinary urgency or vomiting Review of Systems General: Reports: 10 or more systems reviewed and unremarkable except in HPI and below Const: Denies: fever(s), chills, change in appetite, change in weight, fatigue or malaise Eyes: Denies: change in vision, eye discomfort, eye discharge or eye redness ENMT: Denies: throat pain, enlarged tonsils, odynophagia, hoarseness, ear or mastoid pain, ear discharge, change in hearing, tinnitus, nasal discharge, nasal congestion, post nasal drip or sinus pain Card: Denies: chest pain, palpitations, irregular heart rhythm, edema, dyspnea on exertion, orthopnea or leg pain with exertion Resp: Denies: dyspnea, productive cough, non-productive cough, wheezing, stridor or chest congestion GI: Denies: abdominal pain, nausea, vomiting, dysphagia, diarrhea, constipation, bloating, GI cramping or hematochezia : Denies: flank pain, dysuria, urinary frequency, urinary urgency, urinary hesitancy, oliguria or hematuria Musc: Denies: neck pain, back pain, extremity pain, joint pain, joint swelling, joint redness, joint warmth or muscle weakness Skin/Breast: Denies: rash, pruritus, erythema, photosensitivity or new lesions Neuro: Denies: headache(s), numbness in extremities, weakness in extremities, sensory changes, lack of coordination, difficulty walking, frequent falls, dizziness, confusion, Slurred speech present, difficulty communicating thoughts, seizure-like activity or involuntary movements Endo: Denies: polyuria, polydipsia or tired all the time Surinder/Lymph: Denies: easy bruising or easy bleeding PFS ED PFSH: Medical History Bipolar II disorder Cardiac resynchronization therapy defibrillator (CHILD CARE EDUCATION COORDINATOR-D) in place [employer] [address] [place], 07/11/2020 Cardiomyopathy CHF (congestive heart failure) Diabetes Hemorrhoids Hypertension Mixed hyperlipidemia Osteoarthritis of hands, bilateral Pacemaker Psychiatric care Right ureteral calculus Urolithiasis Multi stone former, calcium oxalate mono and dihydrate. Also calcium phosphate. Multiple interventions including endoscopy with laser lithotripsy and ESWL. Metabolic treatment with potassium citrate Surgical History H/O esophagogastroduodenoscopy (02/27/21) gastritis, duodenitis History of carpal tunnel release of both wrists History of colonoscopy (02/27/21) descending colon polyp, hemorrhoids History of permanent cardiac pacemaker placement Hx of cataract surgery Hx of shoulder surgery Family History Grandfather CAD (coronary artery disease) Brother Cancer colon cancer Diabetes Mother Diabetes Father No problems noted. Other Hypertension Rheumatoid arthritis Social History Smoking and tobacco status: former smoker Quit status (tobacco): has quit using tobacco Year quit tobacco: 1999 Second hand smoke exposure: No Alcohol intake: former Year of sobriety/quit date alcohol: 1997 Caregiver/support person: Yes Lives independently: Yes Household members: spouse Marital status: service: No Current occupational status: disabled History of recent travel: No Current gender identity: Male Special fernando needs: No Agree to transfusion: Yes Physical Exam Const: COMMON NORMALS: no acute distress, average body habitus, patient oriented x3, no limitations, healthy appearing, alert and well nourished GENERAL APPEARANCE: cooperative, comfortable and well developed; not in distress and not anxious ORIENTATION/CONSCIOUSNESS: Yes awake, Yes oriented to person, Yes oriented to place and Yes oriented to time HENMT: COMMON NORMALS: normocephalic, atraumatic, hearing grossly normal bilaterally, external ears normal, EAC's normal, TM's normal bilaterally, Normal external nose present and Normal nasal mucous membranes and turbinates present HEAD & SCALP: normal to inspection, normocephalic and atraumatic FACE & SINUS: normal facial exam and face symmetric NOSE: Normal external nose present, Normal nares present and Normal nasal mucous membranes and turbinates present GENERAL EAR: hearing not grossly impaired EXTERNAL EAR: Yes external ears normal and Yes no periauricular adenopathy EXTERNAL AUDITORY CANAL: EAC's normal TYMPANIC MEMBRANE: TM's normal bilaterally MOUTH: Normal oral and palatal mucosa present, lip normal, tongue normal and Normal salivary glands and ducts present THROAT: posterior oropharynx normal, tonsils normal and uvula midline Eye: COMMON NORMALS: Equal, round and reactive pupils present, EOMs intact bilaterally, conjunctivae normal, no scleral icterus and no papilledema GENERAL EYE: appearance normal, both eyes and all related structures ALIGNMENT: Yes alignment normal PERIORBITAL: periorbital findings normal EYELID: eyelids normal CONJUNCTIVA: Yes conjunctivae normal PUPIL: Yes Equal, round and reactive pupils present DIRECT OPHTHALMOSCOPY: Yes no papilledema Neck/C-Spine: COMMON NORMALS: full ROM, supple, no meningeal signs and no JVD GENERAL: Yes normal visual inspection CERVICAL SPINE: Yes cervical ROM normal Lymph: LYMPHATIC: no lymphadenopathy noted Chest: COMMONS NORMALS: normal inspection of the chest Breast/axilla inspection: Yes no chest deformity, asymmetry, normal contours, no nodules, masses, tenderness Resp: COMMON NORMALS: normal respiratory effort, No retractions, No use of accessory muscles and clear to auscultation bilaterally EFFORT & INSPECTION: Yes able to speak in complete sentences, Yes symmetric chest movement, No abnormal respiratory pattern, No tachypneic and No respiratory distress AUSCULTATION: clear to auscultation bilaterally Cardio: COMMON NORMALS: no JVD, regular rate, regular rhythm and Peripheral pulses 2+ throughout RATE: regular rate RHYTHM: regular rhythm PERIPHERAL PULSES: Peripheral pulses 2+ throughout GI: COMMON NORMALS: Normal to inspection, nondistended, normoactive bowel sounds present, Soft to palpation and non-tender INSPECTION: Yes normal to inspection PALPATION: Yes Soft to palpation : COMMON NORMALS: Yes no CVA tenderness BLADDER/KIDNEY EXAM: Yes no CVA tenderness Back/Pelvis: COMMON NORMALS: no CVA tenderness, thoracic and lumbar spine normal to inspection, no thoracic nor lumbar tenderness, thoraco-lumbar ROM normal and straight leg raise negative bilaterally GENERAL BACK: No ecchymosis THORACIC SPINE/UPPER BACK: Yes normal to inspection LUMBAR SPINE/LOWER BACK: Yes normal to inspection and Yes straight leg raise negative bilaterally OTHER: Lumbar back pain Tender to palpation over paraspinous muscle on the right Patient has pain that radiates down the L4/L5 nerve distribution of the right lower extremity. Pain terminates in the knee He does have intermittent numbness and tingling Patient denies bowel bladder incontinence Patient denies saddle paresthesia Patient is ambulatory without assistive device and without difficulty 4 -/5 strength right hip flexor, quad, gastroc, hamstring, EHL/FHL Sensation intact to light touch throughout all nerve distribution Extremity: COMMON NORMALS: normal to inspection, full ROM and capillary refill normal GENERAL: Yes normal exam except as noted Neuro: COMMON NORMALS: patient oriented x3 SENSORIUM/ORIENTATION: Yes alert, Yes oriented to person, Yes oriented to place and Yes oriented to time MENINGEAL SIGNS: Yes no meningeal signs Psych: COMMON NORMALS: mental status grossly normal, Normal thought process present, cooperative, normal affect, speech normal and activity/motor behavior normal SPEECH: Yes normal speech THOUGHT PROCESS: Normal thought process present Skin: COMMON NORMALS: no rashes or lesions noted, no wounds, turgor normal, no jaundice, no petechiae and no mottling GENERAL SKIN EXAM: no rashes or lesions noted and turgor normal Course Vital Signs: Vital signs: Vital Signs Temperature 98.5 F 11/23/22 13:39 Pulse Rate 78 11/23/22 17:44 Respiratory Rate 16 11/23/22 17:44 Blood Pressure 108/71 11/23/22 17:44 Pulse Oximetry 98 11/23/22 17:44 MDM - Back Pain/Injury Medical Decision Making Patient is in the emergency department for lumbar back pain that radiates down the right lower extremity. Differential diagnoses include muscle spasm, disc herniation, disc bulge, spondylolisthesis, spondylosis, degenerative joint or degenerative disc disease Patient has had the symptoms for approximately 1 week without seeking additional treatment through his primary care doctor. At this time without trauma history, I am going to forego any diagnostic imaging. Going to treat the patient with ketorolac, Decadron, Norflex. Patient reports very good relief of symptoms with the above-mentioned medications. I am going to provide prescriptions. I talked with patient about starting back exercises/core strengthening exercises and following up with primary care. It is likely that he would benefit from physical therapy and weight loss. This has been discussed with patient. Patient is to return to the emergency department for any worrisome symptoms such as saddle paresthesia, loss of bowel or bladder control, weakness in lower extremity that is not related to pain. Patient is agreeable Discharge Plan Discharge Patient Disposition: Home Clinical Impression: Acute lumbar back pain, Acute lumbar radiculopathy Condition: Stable Prescriptions: New methocarbamol 500 mg tablet 500 mg PO QID 10 Days Qty: 40 0RF prednisone 50 mg tablet 50 mg PO DAILY 5 Days Qty: 5 0RF No Action aspirin [Aspir-Sagrario] 325 mg tablet,delayed release (DR/EC) 325 mg PO DAILY Hold Instructions: Resume on 12/08/21. carvedilol 25 mg tablet 25 mg PO BID Qty: 180 3RF magnesium L-lactate 84 mg tablet extended release 84 mg PO DAILY Qty: 90 2RF spironolactone 25 mg tablet 12.5 mg PO DAILY Qty: 90 3RF sacubitril-valsartan 97-103 mg tablet 1 tab PO BID Qty: 180 3RF sertraline 100 mg tablet 100 mg PO DAILY Qty: 30 2RF diclofenac sodium [Voltaren Arthritis Pain] 1 % gel 4 g topical QID Qty: 100 0RF Trulicity 0.75 mg/0.5 mL pen injector See Rx Instructions .ROUTE .COMPLEX Qty: 4 5RF Dose Instruction: INJECT 0.75MG (0.5ML) SUBCUTANEOUSLY WEEKLY Rx Instructions: INJECT 0.75MG (0.5ML) SUBCUTANEOUSLY WEEKLY- ON FRIDAY rosuvastatin 20 mg tablet 20 mg PO DAILY Qty: 90 1RF fenofibrate 160 mg tablet 160 mg PO DAILY Qty: 90 1RF metformin 500 mg tablet extended release 24 hr 2,000 mg PO DAILY Qty: 360 1RF albuterol sulfate [ProAir HFA] 90 mcg/actuation HFA aerosol inhaler 2 puff INHALATION Q6H PRN (Reason: shortness of breath or wheezing) Qty: 18 2RF budesonide-formoterol [Symbicort] 160-4.5 mcg/actuation HFA aerosol inhaler 2 puff inhalation BID Qty: 10.2 5RF Hold Instructions: try trelegy (DME) nebulizer machine with tubing and mask See Rx Instructions .Route .MEDSUPPLY Qty: 1 0RF Rx Instructions: As directed fluticasone propionate [Flonase Allergy Relief] 50 mcg/actuation spray,suspension 2 spray intranasal DAILY Qty: 16 5RF Rx Instructions: administer into each nostril albuterol sulfate 2.5 mg /3 mL (0.083 %) solution for nebulization 2.5 mg inhalation QID PRN (Reason: shortness of breath or wheezing) Qty: 180 5RF doxycycline hyclate 100 mg capsule 100 mg PO BID 10 Days Qty: 20 0RF prednisone 20 mg tablet 20 mg PO BID 5 Days Qty: 10 0RF (DME) blood-glucose meter [Blood Glucose Monitoring] Kit See Rx Instructions .ROUTE .MEDSUPPLY Qty: 1 0RF Rx Instructions: As directed; to test 2 x day and prn (DME) Blood Glucose Test Strip See Rx Instructions .ROUTE .MEDSUPPLY Qty: 100 11RF Rx Instructions: Check blood sugar 2 x daily and prn Allergy Relief (cetirizine) 10 mg tablet See Rx Instructions .ROUTE .COMPLEX Qty: 90 1RF Dose Instruction: Take 1 tablet by mouth once daily Rx Instructions: Take 1 tablet by mouth once daily omeprazole 40 mg capsule,delayed release(DR/EC) See Rx Instructions .ROUTE .COMPLEX Qty: 90 1RF Dose Instruction: Take 1 capsule by mouth once daily Rx Instructions: Take 1 capsule by mouth once daily allopurinol 300 mg tablet See Rx Instructions .ROUTE .COMPLEX Qty: 90 1RF Dose Instruction: Take 1 tablet by mouth once daily Rx Instructions: Take 1 tablet by mouth once daily Invokana 300 mg tablet 300 mg PO DAILY Multi For Her 50 Plus 400-80 mcg Capsule 1 cap PO DAILY glipizide 10 mg tablet extended release 24hr 10 mg PO DAILY potassium citrate 10 mEq (1,080 mg) tablet extended release 20 meq PO BID Discharge Orders: Discharge ED (Routine); Ordered 11/23/22 Ordered By: Mykel Hamilton McTeer Referrals: Lucrecia Blandon FNP [Primary Care Provider] - Discharge Diet: Advance as tolerated Discharge Activity: Resume usual activity Patient Instructions: Acute Low Back Pain (ED), Lumbar Radiculopathy (ED), Lower Back Exercises (ED), Pain Management Activity Restrictions/Additional Instructions: Lease follow-up with your primary care doctor regarding your lumbar back pain. Please take the medications as prescribed. Medications include a steroid?prednisone and a muscle relaxer?Robaxin. Take these as prescribed In addition to this you are going to take nonsteroidal anti-inflammatory medications like ibuprofen or naproxen. He develop any worrisome signs?loss of bowel or bladder control, tingling in your testicles, or weakness that is not caused by pain you should be reevaluated. Coding Level of Care Code ED Martial Arts Instructor for Chg Fwd Exam Comprehensive Documented by User: Andre Olvera DO 11/25/22 06:05 HPI - Back Pain/Injury General: Chief Complaint: Back Pain/Injury Stated Complaint: low back pain Time Seen by Provider: 11/23/22 16:19 [facility] ED PFSH: Medical History Bipolar II disorder Cardiac resynchronization therapy defibrillator (CHILD CARE EDUCATION COORDINATOR-D) in place [employer] [address] [place], 07/11/2020 Cardiomyopathy CHF (congestive heart failure) Diabetes Hemorrhoids Hypertension Mixed hyperlipidemia Osteoarthritis of hands, bilateral Pacemaker Psychiatric care Right ureteral calculus Urolithiasis Multi stone former, calcium oxalate mono and dihydrate. Also calcium phosphate. Multiple interventions including endoscopy with laser lithotripsy and ESWL. Metabolic treatment with potassium citrate Surgical History H/O esophagogastroduodenoscopy (02/27/21) gastritis, duodenitis History of carpal tunnel release of both wrists History of colonoscopy (02/27/21) descending colon polyp, hemorrhoids History of permanent cardiac pacemaker placement Hx of cataract surgery Hx of shoulder surgery Family History Grandfather CAD (coronary artery disease) Brother Cancer colon cancer Diabetes Mother Diabetes Father No problems noted. Other Hypertension Rheumatoid arthritis Social History Smoking and tobacco status: former smoker Quit status (tobacco): has quit using tobacco Year quit tobacco: 1999 Second hand smoke exposure: No Alcohol intake: former Year of sobriety/quit date alcohol: 1997 Caregiver/support person: Yes Lives independently: Yes Household members: spouse Marital status: service: No Current occupational status: disabled History of recent travel: No Current gender identity: Male Special fernando needs: No Agree to transfusion: Yes Course Vital Signs: Vital signs: Vital Signs Temperature 98.5 F 11/23/22 13:39 Pulse Rate 78 11/23/22 17:44 Respiratory Rate 16 11/23/22 17:44 Blood Pressure 108/71 11/23/22 17:44 Pulse Oximetry 98 11/23/22 17:44 MDM - Back Pain/Injury Medical Decision Making Patient is in the emergency department for lumbar back pain that radiates down the right lower extremity. Differential diagnoses include muscle spasm, disc herniation, disc bulge, spondylolisthesis, spondylosis, degenerative joint or degenerative disc disease Patient has had the symptoms for approximately 1 week without seeking additional treatment through his primary care doctor. At this time without trauma history, I am going to forego any diagnostic imaging. Going to treat the patient with ketorolac, Decadron, Norflex. Patient reports very good relief of symptoms with the above-mentioned medications. I am going to provide prescriptions. I talked with patient about starting back exercises/core strengthening exercises and following up with primary care. It is likely that he would benefit from physical therapy and weight loss. This has been discussed with patient. Patient is to return to the emergency department for any worrisome symptoms such as saddle paresthesia, loss of bowel or bladder control, weakness in lower extremity that is not related to pain. Patient is agreeable Chart reviewed and patient discussed with midlevel. Agree with assessment and plan. Discharge Plan Discharge Patient Disposition: Home Clinical Impression: Acute lumbar back pain, Acute lumbar radiculopathy Condition: Stable Prescriptions: New methocarbamol 500 mg tablet 500 mg PO QID 10 Days Qty: 40 0RF prednisone 50 mg tablet 50 mg PO DAILY 5 Days Qty: 5 0RF No Action aspirin [Aspir-Sagrario] 325 mg tablet,delayed release (DR/EC) 325 mg PO DAILY Hold Instructions: Resume on 12/08/21. carvedilol 25 mg tablet 25 mg PO BID Qty: 180 3RF magnesium L-lactate 84 mg tablet extended release 84 mg PO DAILY Qty: 90 2RF spironolactone 25 mg tablet 12.5 mg PO DAILY Qty: 90 3RF sacubitril-valsartan 97-103 mg tablet 1 tab PO BID Qty: 180 3RF sertraline 100 mg tablet 100 mg PO DAILY Qty: 30 2RF diclofenac sodium [Voltaren Arthritis Pain] 1 % gel 4 g topical QID Qty: 100 0RF Trulicity 0.75 mg/0.5 mL pen injector See Rx Instructions .ROUTE .COMPLEX Qty: 4 5RF Dose Instruction: INJECT 0.75MG (0.5ML) SUBCUTANEOUSLY WEEKLY Rx Instructions: INJECT 0.75MG (0.5ML) SUBCUTANEOUSLY WEEKLY- ON FRIDAY rosuvastatin 20 mg tablet 20 mg PO DAILY Qty: 90 1RF fenofibrate 160 mg tablet 160 mg PO DAILY Qty: 90 1RF metformin 500 mg tablet extended release 24 hr 2,000 mg PO DAILY Qty: 360 1RF albuterol sulfate [ProAir HFA] 90 mcg/actuation HFA aerosol inhaler 2 puff INHALATION Q6H PRN (Reason: shortness of breath or wheezing) Qty: 18 2RF budesonide-formoterol [Symbicort] 160-4.5 mcg/actuation HFA aerosol inhaler 2 puff inhalation BID Qty: 10.2 5RF Hold Instructions: try trelegy (DME) nebulizer machine with tubing and mask See Rx Instructions .Route .MEDSUPPLY Qty: 1 0RF Rx Instructions: As directed fluticasone propionate [Flonase Allergy Relief] 50 mcg/actuation spray,suspension 2 spray intranasal DAILY Qty: 16 5RF Rx Instructions: administer into each nostril albuterol sulfate 2.5 mg /3 mL (0.083 %) solution for nebulization 2.5 mg inhalation QID PRN (Reason: shortness of breath or wheezing) Qty: 180 5RF doxycycline hyclate 100 mg capsule 100 mg PO BID 10 Days Qty: 20 0RF prednisone 20 mg tablet 20 mg PO BID 5 Days Qty: 10 0RF (DME) blood-glucose meter [Blood Glucose Monitoring] Kit See Rx Instructions .ROUTE .MEDSUPPLY Qty: 1 0RF Rx Instructions: As directed; to test 2 x day and prn (DME) Blood Glucose Test Strip See Rx Instructions .ROUTE .MEDSUPPLY Qty: 100 11RF Rx Instructions: Check blood sugar 2 x daily and prn Allergy Relief (cetirizine) 10 mg tablet See Rx Instructions .ROUTE .COMPLEX Qty: 90 1RF Dose Instruction: Take 1 tablet by mouth once daily Rx Instructions: Take 1 tablet by mouth once daily omeprazole 40 mg capsule,delayed release(DR/EC) See Rx Instructions .ROUTE .COMPLEX Qty: 90 1RF Dose Instruction: Take 1 capsule by mouth once daily Rx Instructions: Take 1 capsule by mouth once daily allopurinol 300 mg tablet See Rx Instructions .ROUTE .COMPLEX Qty: 90 1RF Dose Instruction: Take 1 tablet by mouth once daily Rx Instructions: Take 1 tablet by mouth once daily Invokana 300 mg tablet 300 mg PO DAILY Multi For Her 50 Plus 400-80 mcg Capsule 1 cap PO DAILY glipizide 10 mg tablet extended release 24hr 10 mg PO DAILY potassium citrate 10 mEq (1,080 mg) tablet extended release 20 meq PO BID Discharge Orders: Discharge ED (Routine); Ordered 11/23/22 Ordered By: Mykel Hamilton [facility] [place] Referrals: Lucrecia Blandon FNP [Primary Care Provider] - Discharge Diet: Advance as tolerated Discharge Activity: Resume usual activity Patient Instructions: Acute Low Back Pain (ED), Lumbar Radiculopathy (ED), Lower Back Exercises (ED), Pain Management Activity Restrictions/Additional Instructions: Lease follow-up with your primary care doctor regarding your lumbar back pain. Please take the medications as prescribed. Medications include a steroid?prednisone and a muscle relaxer?Robaxin. Take these as prescribed In addition to this you are going to take nonsteroidal anti-inflammatory medications like ibuprofen or naproxen. He develop any worrisome signs?loss of bowel or bladder control, tingling in your testicles, or weakness that is not caused by pain you should be reevaluated. Coding Level of Care Code ED Martial Arts Instructor for Chg Fwd Exam Comprehensive
[2022-11-23 17:44] VITALS: BP 108/71; PULSE 78; RESP 16; O2SAT 98
== END 2022-11-23 17:46 | disposition home or self-care (01) ==
PROVIDERS: Emergency Provider Nurse Practitioner; PCP Nurse Practitioner Family
DX: M54.16 Radiculopathy, lumbar region (principal); Z79.82 Long term (current) use of aspirin; Z79.85 Long-term (current) use of injectable non-insulin antidiabetic drugs; Z79.84 Long term (current) use of oral hypoglycemic drugs; Z87.891 Personal history of nicotine dependence; I11.0 Hypertensive heart disease with heart failure; I50.9 Heart failure, unspecified; E11.9 Type 2 diabetes mellitus without complications; E78.2 Mixed hyperlipidemia; Z95.0 Presence of cardiac pacemaker
CPT/HCPCS: 96372; 99284; J1100; J1885; J2360

== ENCOUNTER → 2022-12-24 10:51 | Outpatient (BNVA) | payer MEDICAID, SELFPAY | PROVIDERS: PCP Nurse Practitioner Family; Referring Provider Nurse Practitioner Family; Visit Provider Orthopaedic Surgery | DX: M54.50 Low back pain, unspecified (principal); M54.6 Pain in thoracic spine | CPT/HCPCS: 72070; 72110; 99204 ==

== ENCOUNTER 2022-12-28 19:57 | Emergency (ER) | payer MEDICAID, SELFPAY ==
[2022-12-28 20:06] VITALS: BP 166/95; PULSE 107; RESP 18; TEMP 36.7; O2SAT 94
--- NOTE | 2022-12-28 20:54 | W.ED.BACK ---
HPI - Back Pain/Injury General: Chief Complaint: Back Pain/Injury Stated Complaint: back pain Time Seen by Provider: 12/28/22 20:54 History of Present Illness: 62-year-old male patient comes in today for complaints of mid to low back pain. Pain occurs on the right side of his mid back radiating down. Patient has been evaluated for this pain with orthopedic principal bioinformatics specialist, Dr. Sosa. Patient has CTs and x-rays in the chart already. Review of the images of the cervical, thoracic, and lumbar spine notes some degenerative disc disease of the cervical and lumbar spine, and chronic tendinitis of the thoracic spine. Patient has been using ibuprofen with minimal relief of pain. Patient appears nontoxic. Patient appears in moderate pain. Associated symptoms: Deny fever(s), nausea or vomiting Review of Systems General: Reports: 10 or more systems reviewed and unremarkable except in HPI and below Const: Denies: fever(s) ENMT: Denies: throat pain Card: Denies: chest pain Resp: Denies: dyspnea GI: Denies: nausea or vomiting : Denies: difficulty urinating Musc: Reports: back pain Skin/Breast: Denies: rash Neuro: Denies: headache(s) PFSH ED PFSH: Medical History Bipolar II disorder Cardiac resynchronization therapy defibrillator (CAR FERRIER-D) in place [employer] Dr. [place], 07/11/2020 Cardiomyopathy CHF (congestive heart failure) Diabetes Hemorrhoids Hypertension Mixed hyperlipidemia Osteoarthritis of hands, bilateral Pacemaker Psychiatric care Right ureteral calculus Urolithiasis Multi stone former, calcium oxalate mono and dihydrate. Also calcium phosphate. Multiple interventions including endoscopy with laser lithotripsy and ESWL. Metabolic treatment with potassium citrate Surgical History H/O esophagogastroduodenoscopy (02/27/21) gastritis, duodenitis History of carpal tunnel release of both wrists History of colonoscopy (02/27/21) descending colon polyp, hemorrhoids History of permanent cardiac pacemaker placement Hx of cataract surgery Hx of shoulder surgery Family History Grandfather CAD (coronary artery disease) Brother Cancer colon cancer Diabetes Mother Diabetes Father No problems noted. Other Hypertension Rheumatoid arthritis Social History Smoking and tobacco status: former smoker Quit status (tobacco): has quit using tobacco Year quit tobacco: 1999 Second hand smoke exposure: No Alcohol intake: former Year of sobriety/quit date alcohol: 1997 Caregiver/support person: Yes Lives independently: Yes Household members: spouse Marital status: service: No Current occupational status: disabled Current gender identity: Male Special fernando needs: No Agree to transfusion: Yes Physical Exam Const: COMMON NORMALS: alert HENMT: COMMON NORMALS: normocephalic HEAD & SCALP: normocephalic Neck/C-Spine: CERVICAL SPINE: No Cervical spine tenderness Chest: COMMONS NORMALS: normal palpation of entire chest wall Resp: COMMON NORMALS: normal respiratory effort and clear to auscultation bilaterally AUSCULTATION: clear to auscultation bilaterally Cardio: COMMON NORMALS: regular rate and regular rhythm RATE: regular rate RHYTHM: regular rhythm GI: COMMON NORMALS: non-tender Back/Pelvis: THORACIC SPINE/UPPER BACK: No thoracic spinal tenderness and Yes paraspinal muscle tenderness Thoracic paraspinal muscle tenderness: right LUMBAR SPINE/LOWER BACK: No lumbar spinal tenderness and Yes paraspinal muscle tenderness Lumbar paraspinal muscle tenderness: right Extremity: COMMON NORMALS: normal to inspection Neuro: SENSORIUM/ORIENTATION: Yes alert Skin: COMMON NORMALS: turgor normal GENERAL SKIN EXAM: turgor normal Course Vital Signs: Vital signs: Vital Signs Temperature 98.0 F 12/28/22 20:06 Pulse Rate 107 H 12/28/22 20:06 Respiratory Rate 18 12/28/22 20:06 Blood Pressure 166/95 12/28/22 20:06 Pulse Oximetry 94 12/28/22 20:06 Oxygen Delivery Me thod 12/28/22 20:06 MDM - Back Pain/Injury Medical Decision Making Patient comes in today with complaints of increased back pain. Patient reports moving and feeling a popping sensation in his mid back. Since then patient started having increased pain and discomfort. Patient denies any falls or other injury. Respirations are even lungs are clear to auscultation. Palpation of the thoracic and lumbar spine indicated no pain patient does have some muscle tenderness on palpation of the mid and low paraspinous muscles of the back. Differential diagnosis includes facet arthropathy, degenerative disc disease, muscle strain, malingering. Reviewed exam with patient with recommendations for further treatment and follow-up with primary care. Patient reported understanding and agreed to plan. Discharge Plan Discharge Patient Disposition: Home Clinical Impression: Acute thoracic myofascial strain Qualifiers: Encounter type: initial encounter Qualified Code(s): S29.019A - Strain of muscle and tendon of unspecified wall of thorax, initial encounter Condition: Stable Prescriptions: New hydrocodone-acetaminophen 7.5-325 mg tablet 1 tab PO Q8H PRN (Reason: pain (scale score 7-10)) Qty: 7 0RF No Action aspirin [Aspir-Sagrario] 325 mg tablet,delayed release (DR/EC) 325 mg PO DAILY Hold Instructions: Resume on 12/08/21. carvedilol 25 mg tablet 25 mg PO BID Qty: 180 3RF magnesium L-lactate 84 mg tablet extended release 84 mg PO DAILY Qty: 90 2RF spironolactone 25 mg tablet 12.5 mg PO DAILY Qty: 90 3RF sacubitril-valsartan 97-103 mg tablet 1 tab PO BID Qty: 180 3RF diclofenac sodium [Voltaren Arthritis Pain] 1 % gel 4 g topical QID Qty: 100 0RF Trulicity 0.75 mg/0.5 mL pen injector See Rx Instructions .ROUTE .COMPLEX Qty: 4 5RF Dose Instruction: INJECT 0.75MG (0.5ML) SUBCUTANEOUSLY WEEKLY Rx Instructions: INJECT 0.75MG (0.5ML) SUBCUTANEOUSLY WEEKLY- ON FRIDAY rosuvastatin 20 mg tablet 20 mg PO DAILY Qty: 90 1RF sertraline 100 mg tablet 100 mg PO DAILY Qty: 30 2RF diclofenac sodium 75 mg tablet,delayed release (DR/EC) 75 mg PO BID PRN (Reason: pain) Qty: 60 0RF (DME) Blood Glucose Test Strip See Rx Instructions .ROUTE .MEDSUPPLY Qty: 100 11RF Rx Instructions: Check blood sugar 2 x daily and prn (DME) lancets [BD Ultra Fine Lancets] 33 gauge misc See Rx Instructions .ROUTE .MEDSUPPLY Qty: 100 11RF Rx Instructions: check blood sugar twice daily and as needed fenofibrate 160 mg tablet 160 mg PO DAILY Qty: 90 1RF metformin 500 mg tablet extended release 24 hr 2,000 mg PO DAILY Qty: 360 1RF albuterol sulfate [ProAir HFA] 90 mcg/actuation HFA aerosol inhaler 2 puff INHALATION Q6H PRN (Reason: shortness of breath or wheezing) Qty: 18 2RF budesonide-formoterol [Symbicort] 160-4.5 mcg/actuation HFA aerosol inhaler 2 puff inhalation BID Qty: 10.2 5RF Hold Instructions: try trelegy (DME) nebulizer machine with tubing and mask See Rx Instructions .Route .MEDSUPPLY Qty: 1 0RF Rx Instructions: As directed fluticasone propionate [Flonase Allergy Relief] 50 mcg/actuation spray,suspension 2 spray intranasal DAILY Qty: 16 5RF Rx Instructions: administer into each nostril albuterol sulfate 2.5 mg /3 mL (0.083 %) solution for nebulization 2.5 mg inhalation QID PRN (Reason: shortness of breath or wheezing) Qty: 180 5RF (DME) blood-glucose meter [Blood Glucose Monitoring] Kit See Rx Instructions .ROUTE .MEDSUPPLY Qty: 1 0RF Rx Instructions: As directed; to test 2 x day and prn Allergy Relief (cetirizine) 10 mg tablet See Rx Instructions .ROUTE .COMPLEX Qty: 90 1RF Dose Instruction: Take 1 tablet by mouth once daily Rx Instructions: Take 1 tablet by mouth once daily omeprazole 40 mg capsule,delayed release(DR/EC) See Rx Instructions .ROUTE .COMPLEX Qty: 90 1RF Dose Instruction: Take 1 capsule by mouth once daily Rx Instructions: Take 1 capsule by mouth once daily allopurinol 300 mg tablet See Rx Instructions .ROUTE .COMPLEX Qty: 90 1RF Dose Instruction: Take 1 tablet by mouth once daily Rx Instructions: Take 1 tablet by mouth once daily Invokana 300 mg tablet 300 mg PO DAILY Multi For Her 50 Plus 400-80 mcg Capsule 1 cap PO DAILY glipizide 10 mg tablet extended release 24hr 10 mg PO DAILY potassium citrate 10 mEq (1,080 mg) tablet extended release 20 meq PO BID Discharge Orders: Discharge ED (Routine); Ordered 12/28/22 Ordered By: Isaias Bob Referrals: Lucrecia Blandon, MEDICATION TECHNICIAN [Primary Care Provider] - Discharge Diet: Usual diet Discharge Activity: Increase activity as tolerated Patient Instructions: Opioid Safety, Pain Management Activity Restrictions/Additional Instructions: Activity as tolerated. Use ibuprofen and acetaminophen to control pain. Use ice and heat for further pain relief. Use hydrocodone for severe pain. Drink plenty of water with medication. Follow-up with primary care in 2 to 3 days for recheck regarding physical therapy referral and/or pain management referral. Coding Level of Care Code ED Forms Examiner for Ck Crooks
[2022-12-28] MEDS: HYDROcodone-acetaminophen 10-325 mg Tablet 1 TAB PO (21:20)
[2022-12-28] MEDS: orphenadrine 30 mg/mL Inj 2 mL 60 MG IM (21:20)
[2022-12-28] MEDS: ketorolac 30 mg/mL INJ IM (21:21)
[2022-12-28 21:26] VITALS: BP 145/98; PULSE 84; RESP 18; O2SAT 96
[2022-12-28 22:27] VITALS: BP 162/86; PULSE 91; RESP 16; O2SAT 95
== END 2022-12-28 21:55 | disposition home or self-care (01) ==
PROVIDERS: Emergency Provider Nurse Practitioner Family; PCP Nurse Practitioner Family
DX: S29.019A Strain of muscle and tendon of unspecified wall of thorax, initial encounter (principal); Z79.85 Long-term (current) use of injectable non-insulin antidiabetic drugs; Z79.82 Long term (current) use of aspirin; Z79.84 Long term (current) use of oral hypoglycemic drugs; Z87.891 Personal history of nicotine dependence; Z95.0 Presence of cardiac pacemaker; I11.0 Hypertensive heart disease with heart failure; I50.9 Heart failure, unspecified; E11.9 Type 2 diabetes mellitus without complications; E78.2 Mixed hyperlipidemia; X58.XXXA Exposure to other specified factors, initial encounter
CPT/HCPCS: 96372; 99284; J1885; J2360

== ENCOUNTER → 2022-12-31 14:41 | Outpatient (BNVA) | payer MEDICAID, SELFPAY | PROVIDERS: PCP Nurse Practitioner Family; Visit Provider Internal Medicine Cardiovascular Disease | DX: Z45.02 Encounter for adjustment and management of automatic implantable cardiac defibrillator (principal) | CPT/HCPCS: 93296 ==

== ENCOUNTER → 2023-01-01 11:49 | Outpatient (BNVA) | payer MEDICAID, SELFPAY | PROVIDERS: PCP Nurse Practitioner Family; Visit Provider Nurse Practitioner Family | DX: R39.198 Other difficulties with micturition (principal); E11.42 Type 2 diabetes mellitus with diabetic polyneuropathy; Z12.5 Encounter for screening for malignant neoplasm of prostate | CPT/HCPCS: 80053; 80061; 81000; 83036; 84443; 85025; G0103 ==

== ENCOUNTER → 2023-01-02 09:07 | Outpatient (BNVA) | payer MEDICAID, SELFPAY | PROVIDERS: PCP Nurse Practitioner Family; Visit Provider Specialist | DX: M12.811 Other specific arthropathies, not elsewhere classified, right shoulder (principal); Z71.89 Other specified counseling | CPT/HCPCS: 20610; J1100; J2795; J3301 ==

== ENCOUNTER 2023-01-04 09:52 | Emergency (ER) | payer MEDICAID, SELFPAY ==
[2023-01-04] VITALS (10 sets, daily range): BP systolic 113–158; BP diastolic 77–102; PULSE 79–94; RESP 16–18; TEMP 36.4; O2SAT 92–96; BMI 44.1
--- NOTE | 2023-01-04 10:30 | ECG_ITS ---
[facility] Test Date: 2023-01-04 Pat Name: Amrik Alexander Department: Room: Gender: Male Puppy Sitter: : 1960 Requested By: Patrick Palafox Order Number: [id number] Haja MD: Reese Andrew M.D. Measurements Intervals Whitt Rate: 79 P: 49 VT: 153 QRS: 202 QRSD: 165 T: 46 QT: 393 QTc: 451 Interpretive Statements ELECTRONIC VENTRICULAR PACEMAKER Compared to ECG 09/18/2022 02:25:52 No significant changes Electronically Signed On 01-04-2023 12:14:40 SURVEILLANCE OFFICER by Reese Andrew M.D. [id number]
--- NOTE | 2023-01-04 10:48 | XRR_ITS ---
PROCEDURE INFORMATION: Exam: XR Chest Exam date and time: 01/04/2023 11:01 AM Age: 62 years old Clinical indication: Shortness of breath; Prior surgery; Surgery date: 6+ months; Surgery type: Defibrillator; Additional info: SOB TECHNIQUE: Imaging protocol: Radiologic exam of the chest. Views: 1 view. COMPARISON: CR XR chest 1V portable [id number] 09/18/2022 3:24 AM FINDINGS: Tubes, catheters and devices: A cardiac pacing device is again seen projecting over the right chest. Lungs: Low lung volumes. There is increased interstitial markings and haziness of the lungs, which in the setting of cardiomegaly is suggestive of pulmonary congestion. Pneumonia should be excluded clinically. Pleural spaces: Unremarkable. No pleural effusion. No pneumothorax. Heart/Mediastinum: Stable cardiomediastinal silhouette. Bones/joints: Degenerative changes of the spine seen. XR/XR chest 1V portable [id number] IMPRESSION: Imaging findings suggestive of pulmonary congestion. Pneumonia should be excluded clinically.
--- NOTE | 2023-01-04 11:02 | ED_ITS ---
HPI - SOB/Dyspnea General: Chief Complaint: Shortness of Breath/Dyspnea Stated Complaint: sob Time Seen by Provider: 01/04/23 11:02 History of Present Illness: HPI Narrative: Mr. Alexander is a 62-year-old gentleman with complex past medical history including diabetes, COPD without chronic hypoxic respiratory failure, cardiomyopathy with reduced ejection fraction presenting to the emergency department for shortness of breath. He reports gradual onset of symptoms approximately 3 days ago. He does note that he was prescribed a new medication for back pain that he started taking around that time. Since that time has had progressively worsening symptoms worse with exertion and lying flat. At rest he is now short of breath and notes some abdominal fullness/swelling. No other specific changes in health, exacerbating, or alleviating factors identified. Onset (ago): day(s) Context: other Timing: progressively worsening Severity: moderate Exacerbating factors: lying flat, exertion and recent new medication Relieving factors: nothing Known history of: COPD, congestive heart failure and diabetes Review of Systems General: Reports: 10 or more systems reviewed and unremarkable except in HPI and below PFSH ED PFSH: Medical History Bipolar II disorder C. difficile diarrhea Cardiac resynchronization therapy defibrillator ([employer] COMPLIANCE TECHNICIAN-D) in place [employer] Dr. [place], 07/11/2020 Cardiomyopathy Cataracts, bilateral CHF (congestive heart failure) Diabetes GERD (gastroesophageal reflux disease) Hemorrhoids Hypertension Mixed hyperlipidemia ALBERTO (obstructive sleep apnea) Osteoarthritis of hands, bilateral Pacemaker Psychiatric care Right ureteral calculus Urolithiasis Multi stone former, calcium oxalate mono and dihydrate. Also calcium phosphate. Multiple interventions including endoscopy with laser lithotripsy and ESWL. Metabolic treatment with potassium citrate Surgical History H/O esophagogastroduodenoscopy (02/27/21) gastritis, duodenitis History of carpal tunnel release of both wrists History of colonoscopy (02/27/21) descending colon polyp, hemorrhoids History of permanent cardiac pacemaker placement History of urethral stent Hx of cataract surgery Hx of lithotripsy Hx of shoulder surgery Hx of umbilical hernia repair Family History Grandfather CAD (coronary artery disease) Brother Cancer colon cancer Diabetes Mother Diabetes Father No problems noted. Other Hypertension Rheumatoid arthritis Social History Smoking and tobacco status: former smoker Quit status (tobacco): has quit using tobacco Year quit tobacco: 1999 Second hand smoke exposure: No Alcohol intake: former Year of sobriety/quit date alcohol: 1997 Caregiver/support person: Yes Lives independently: Yes Household members: spouse Marital status: service: No Current occupational status: disabled Current gender identity: Male Special fernando needs: No Agree to transfusion: Yes Physical Exam Const: COMMON NORMALS: alert GENERAL APPEARANCE: cooperative and well developed HENMT: COMMON NORMALS: normocephalic and atraumatic HEAD & SCALP: normocephalic and atraumatic Eye: COMMON NORMALS: conjunctivae normal CONJUNCTIVA: Yes conjunctivae nor mal SCLERA: sclerae normal Neck/C-Spine: COMMON NORMALS: supple GENERAL: Yes trachea midline Resp: EFFORT & INSPECTION: Yes tachypneic AUSCULTATION: diminished lung sounds Cardio: COMMON NORMALS: regular rate and regular rhythm RATE: regular rate RHYTHM: regular rhythm GI: COMMON NORMALS: Soft to palpation PALPATION: Yes Soft to palpation and No Tenderness to palpation present (GI) Extremity: GENERAL: Yes normal exam except as noted and Yes edema Neuro: COMMON NORMALS: moves all extremities SENSORIUM/ORIENTATION: Yes alert and No Orientation impaired Psych: COMMON NORMALS: mental status grossly normal and Normal thought process present THOUGHT PROCESS: Normal thought process present Course Vital Signs: Vital signs: Vital Signs Temperature 97.5 F L 01/04/23 10:27 Pulse Rate 88 01/04/23 14:26 Respiratory Rate 18 01/04/23 14:26 Blood Pressure 158/93 01/04/23 14:26 Pulse Oximetry 92 01/04/23 14:26 Oxygen Delivery Me thod 01/04/23 13:25 MDM - SOB/Dyspnea Medical Decision Making 62-year-old gentleman presenting with shortness of breath in the context of known COPD and CHF. Exam as above. EKG notable for paced rhythm with occasional PVC. No STEMI. Labs notable for leukocytosis, normal hemoglobin and platelet count. Potassium is elevated though hemolysis noted. Negative range 2-hour delta troponin. BNP is mildly elevated. Rapid viral testing is negative. Chest x-ray with pulmonary vascular congestion. Patient treated with steroids, RT treatment, Lasix and feels improved. I discussed disposition options and the patient is comfortable with trial of outpatient management. Most likely etiology of symptoms is multifactorial with COPD exacerbation and heart failure exacerbation. The results of ED evaluation were discussed with the patient including prescriptions and/or symptomatic cares (if applicable) including appropriate and responsible use, followup plan, and return precautions. The patient verbalized understanding and felt safe for discharge. Medical Records I reviewed the patient's medical records. Lab Data I reviewed the patient's lab results. 01/04/23 11:20 01/04/23 11:20 Labs/Radiology: Radiology Impressions Chest X-Ray 01/04/23 10:48 IMPRESSION: Imaging findings suggestive of pulmonary congestion. Pneumonia should be excluded clinically. Laboratory Results WBC 13.5 10^3/uL (4.0-10.0) H 01/04/23 11:20 RBC 4.56 10^6/uL (4.1-5.3) 01/04/23 11:20 Hgb 14.3 g/dL (11.7-16.6) 01/04/23 11:20 Hct 42.7 % (42.0-52.0) 01/04/23 11:20 MCV 93.6 fl (80-94) 01/04/23 11:20 MCH 31.4 pg (28.0-34.0) 01/04/23 11:20 MCHC 33.5 g/dL (30.0-36.0) 01/04/23 11:20 RDW 13.9 % (12.1-15.1) 01/04/23 11:20 Plt Count 202 10^3/cmm (130-400) 01/04/23 11:20 MPV 12.5 fL (7.4-10.4) H 01/04/23 11:20 Neut % (Auto) 79.4 % 01/04/23 11:20 Lymph % (Auto) 13.7 % 01/04/23 11:20 Lewis % (Auto) 6.2 % 01/04/23 11:20 Eos % (Auto) 0.2 % 01/04/23 11:20 Baso % (Auto) 0.1 % 01/04/23 11:20 Neut # (Auto) 10.76 10^3/uL (1.8-7.7) H 01/04/23 11:20 Lymph # (Auto) 1.9 10^3/uL (0.8-4.8) 01/04/23 11:20 Lewis # (Auto) 0.8 10^3/uL (0.2-0.9) 01/04/23 11:20 Eos # (Auto) 0.0 10^3/uL (0.0-0.8) 01/04/23 11:20 Baso # (Auto) 0.0 10^3/uL (0.0-0.1) 01/04/23 11:20 Nucleated RBC % (auto) 0 % 01/04/23 11:20 Nucleated RBCs # 0.0 /100WBC 01/04/23 11:20 Sodium 137 mmol/L (136-145) 01/04/23 11:20 Potassium 5.7 mmol/L (3.5-5.1) H 01/04/23 11:20 Chloride 103 mmol/L (98-107) 01/04/23 11:20 Carbon Dioxide 22 mmol/L (22-29) 01/04/23 11:20 Anion Gap 17.7 (5-19) 01/04/23 11:20 BUN 25 mg/dL (8-23) H 01/04/23 11:20 Creatinine 0.8 mg/dL (0.7-1.2) 01/04/23 11:20 GFR Calculation 98.0 mL/min (90-130) 01/04/23 11:20 Glucose 330 mg/dL (65-115) H 01/04/23 11:20 Calculated Osmolality 301 mOsm/kg (285-295) H 01/04/23 11:20 Calcium 9.9 mg/dL (8.5-10.5) 01/04/23 11:20 Total Bilirubin 0.3 mg/dL (0.15-1.2) 01/04/23 11:20 AST 38 U/L (0-40) 01/04/23 11:20 ALT 43 U/L (0-41) H 01/04/23 11:20 Alkaline Phosphatase 95 U/L (40-130) 01/04/23 11:20 Troponin T Baseline 26 ng/L (0-15) H 01/04/23 11:20 Troponin T 120 Minute 22.57 ng/L (0-15) H 01/04/23 13:07 Delta Troponin T -3.43 ABS# (0-10) L 01/04/23 13:07 NT-Pro-B Natriuret Pep 1268 pg/mL (0-125) H 01/04/23 11:20 Total Protein 6.4 g/dL (6.6-8.7) L 01/04/23 11:20 Albumin 4.3 g/dL (3.5-5.2) 01/04/23 11:20 Globulin 2.1 g/dL (1.3-4.6) 01/04/23 11:20 Influenza Type A Ag negative (Negative) 01/04/23 11:57 Influenza Type B Ag negative (Negative) 01/04/23 11:57 SARS-CoV-2 Ag (Rapid) negative (Negative) 01/04/23 11:57 Discharge Plan Discharge Patient Disposition: Home Clinical Impression: Acute exacerbation of CHF (congestive heart failure), COPD (chronic obstructive pulmonary disease), Pulmonary edema Condition: Stable Prescriptions: New Lasix 20 mg tablet 20 mg PO DAILY Qty: 7 0RF No Action aspirin [Aspir-Sagrario] 325 mg tablet,delayed release (DR/EC) 325 mg PO DAILY Hold Instructions: Resume on 12/08/21. carvedilol 25 mg tablet 25 mg PO BID Qty: 180 3RF magnesium L-lactate 84 mg tablet extended release 84 mg PO DAILY Qty: 90 2RF spironolactone 25 mg tablet 12.5 mg PO DAILY Qty: 90 3RF sacubitril-valsartan 97-103 mg tablet 1 tab PO BID Qty: 180 3RF diclofenac sodium [Voltaren Arthritis Pain] 1 % gel 4 g topical QID Qty: 100 0RF Trulicity 0.75 mg/0.5 mL pen injector See Rx Instructions .ROUTE .COMPLEX Qty: 4 5RF Dose Instruction: INJECT 0.75MG (0.5ML) SUBCUTANEOUSLY WEEKLY Rx Instructions: INJECT 0.75MG (0.5ML) SUBCUTANEOUSLY WEEKLY- ON FRIDAY rosuvastatin 20 mg tablet 20 mg PO DAILY Qty: 90 1RF sertraline 100 mg tablet 100 mg PO DAILY Qty: 30 2RF (DME) Blood Glucose Test Strip See Rx Instructions .ROUTE .MEDSUPPLY Qty: 100 11RF Rx Instructions: Check blood sugar 2 x daily and prn (DME) lancets [BD Ultra Fine Lancets] 33 gauge misc See Rx Instructions .ROUTE .MEDSUPPLY Qty: 100 11RF Rx Instructions: check blood sugar twice daily and as needed cyclobenzaprine 10 mg tablet 10 mg PO TID PRN (Reason: muscle spasm) Qty: 30 0RF diclofenac sodium 75 mg tablet,delayed release (DR/EC) 75 mg PO BID PRN (Reason: pain) Qty: 60 0RF fenofibrate 160 mg tablet 160 mg PO DAILY Qty: 90 1RF metformin 500 mg tablet extended release 24 hr 2,000 mg PO DAILY Qty: 360 1RF albuterol sulfate [ProAir HFA] 90 mcg/actuation HFA aerosol inhaler 2 puff INHALATION Q6H PRN (Reason: shortness of breath or wheezing) Qty: 18 2RF budesonide-formoterol [Symbicort] 160-4.5 mcg/actuation HFA aerosol inhaler 2 puff inhalation BID Qty: 10.2 5RF Hold Instructions: try trelegy (DME) nebulizer machine with tubing and mask See Rx Instructions .Route .MEDSUPPLY Qty: 1 0RF Rx Instructions: As directed fluticasone propionate [Flonase Allergy Relief] 50 mcg/actuation spray,suspension 2 spray intranasal DAILY Qty: 16 5RF Rx Instructions: administer into each nostril albuterol sulfate 2.5 mg /3 mL (0.083 %) solution for nebulization 2.5 mg inhalation QID PRN (Reason: shortness of breath or wheezing) Qty: 180 5RF (DME) blood-glucose meter [Blood Glucose Monitoring] Kit See Rx Instructions .ROUTE .MEDSUPPLY Qty: 1 0RF Rx Instructions: As directed; to test 2 x day and prn Allergy Relief (cetirizine) 10 mg tablet See Rx Instructions .ROUTE .COMPLEX Qty: 90 1RF Dose Instruction: Take 1 tablet by mouth once daily Rx Instructions: Take 1 tablet by mouth once daily omeprazole 40 mg capsule,delayed release(DR/EC) See Rx Instructions .ROUTE .COMPLEX Qty: 90 1RF Dose Instruction: Take 1 capsule by mouth once daily Rx Instructions: Take 1 capsule by mouth once daily allopurinol 300 mg tablet See Rx Instructions .ROUTE .COMPLEX Qty: 90 1RF Dose Instruction: Take 1 tablet by mouth once daily Rx Instructions: Take 1 tablet by mouth once daily Invokana 300 mg tablet 300 mg PO DAILY Multi For Her 50 Plus 400-80 mcg Capsule 1 cap PO DAILY glipizide 10 mg tablet extended release 24hr 10 mg PO DAILY potassium citrate 10 mEq (1,080 mg) tablet extended release 20 meq PO BID hydrocodone-acetaminophen 7.5-325 mg tablet 1 tab PO Q8H PRN (Reason: pain (scale score 7-10)) Qty: 7 0RF Discharge Orders: Discharge ED (Routine); Ordered 01/04/23 Ordered By: Zander Cheney Referrals: Lucrecia Blandon FNP [Primary Care Provider] - Discharge Diet: Usual diet Discharge Activity: Increase activity as tolerated Patient Instructions: Heart Failure (ED), Pulmonary Edema (ED), COPD (Chronic Obstructive Pulmonary Disease) (ED), Shortness of Breath (ED) Activity Restrictions/Additional Instructions: Thank you for visiting the emergency department. You were seen and evaluated for shortness of breath. The most likely cause of your symptoms is multifactorial including exacerbation of underlying heart failure and lung disease. We are pleased that you had improvement in the emergency department. I will prescribe a 7-day course of Lasix which you should begin tomorrow. As discussed this requires close follow-up with your primary care provider. I recommend labs be repeated early next week. I will also prescribe antibiotics. Please also use your albuterol metered-dose inhaler 2 puffs every 4 hours for 24 hours followed by 2 puffs every 6 hours for 24 hours followed by 2 puffs every 8 hours for 24 hours and then return to the normal schedule. Return to the emergency department for worsening symptoms or anything else that you are concerned about and feel needs emergency department evaluation. Coding Level of Care Code ED [employer] President for Ck Crooks
--- NOTE | 2023-01-04 11:28 | PC.NURSE ---
PT PACEMAKER INTERROGATED PER VERBAL ORDER FROM DR. CRISTINA. [employer] CALLED FOR REPORT. SYDNIE FROM [employer] STATES SHE WILL FAX THE REPORT TO [facility]
[2023-01-04 11:30] LABS: Basophils % 0.1 %; Eosinophils % 0.2 %; Hematocrit 42.7 % (42.0-52.0); Hemoglobin 14.3 g/dL (11.7-16.6); Lymphocytes # 1.9 10^3/uL (0.8-4.8); Lymphocytes % 13.7 %; Mean Corpuscular HGB Conc 33.5 g/dL (30.0-36.0); Mean Corpuscular Hemoglobin 31.4 pg (28.0-34.0); Mean Corpuscular Volume 93.6 fl (80-94); Mean Platelet Volume 12.5 fL (7.4-10.4); Monocytes # 0.8 10^3/uL (0.2-0.9); Monocytes % 6.2 %; Neutrophils # 10.76 10^3/uL (1.8-7.7); Neutrophils % 79.4 %; Nucleated Red Blood Cells % 0 %; Platelet Count 202 10^3/cmm (130-400); Red Blood Count 4.56 10^6/uL (4.1-5.3); Red Cell Distribution Width 13.9 % (12.1-15.1); White Blood Count 13.5 10^3/uL (4.0-10.0)
[2023-01-04] MEDS: ipratropium-albuterol 3 mL Neb INHALATION (11:41)
[2023-01-04 12:01] LABS: Troponin(5th) Baseline 26 ng/L (0-15)
[2023-01-04 12:06] LABS: Alanine Aminotransferase 43 U/L (0-41); Albumin Level 4.3 g/dL (3.5-5.2); Alkaline Phosphatase 95 U/L (40-130); Blood Urea Nitrogen 25 mg/dL (8-23); Calcium 9.9 mg/dL (8.5-10.5); Carbon Dioxide 22 mmol/L (22-29); Chloride 103 mmol/L (98-107); Globulin 2.1 g/dL (1.3-4.6); Glucose 330 mg/dL (65-115); NT Pro B Type Natriuretic Pept 1268 pg/mL (0-125); Osmolality Calculated 301 mOsm/kg (285-295); Sodium 137 mmol/L (136-145); Total Bilirubin 0.3 mg/dL (0.15-1.2); Total Protein 6.4 g/dL (6.6-8.7)
[2023-01-04 12:17] LABS: Anion Gap 17.7 (5-19); Aspartate Amino Transferase 38 U/L (0-40); Potassium 5.7 mmol/L (3.5-5.1)
[2023-01-04 12:26] LABS: Influenza A by IFA negative (Negative); Influenza B by IFA negative (Negative)
[2023-01-04 12:27] LABS: SARS Covid-2 Antigen negative (Negative)
[2023-01-04] MEDS: FUROsemide 10 mg/mL SDV 4mL 40 MG IVP (12:48)
--- NOTE | 2023-01-04 13:06 | ECG_ITS ---
[facility] Test Date: 2023-01-04 Pat Name: Amrik Alexander Department: Room: Gender: Male Production Director: : 1960 Requested By: Zander Cheney Order Number: [id number] Haja MD: Reese Andrew M.D. Measurements Intervals [place] Rate: 84 P: 62 MS: 197 QRS: 206 QRSD: 143 T: 48 QT: 385 QTc: 456 Interpretive Statements ELECTRONIC ATRIAL PACEMAKER ELECTRONIC VENTRICULAR PACEMAKER Compared to ECG 01/04/2023 10:23:00 No significant changes Electronically Signed On 01-04-2023 20:52:07 UTILITY MAINTENANCE WORKER by Reese Andrew M.D. [email or web address] medical centerGecko Audiogrant hospitalVascular Magnetics/store/OM/[id number]/[id number]
[2023-01-04] MEDS: albuterol 2.5 mg/3 mL Neb INHALATION (13:25)
--- NOTE | 2023-01-04 13:43 | PC.NURSE ---
PT VOIDED 800ML INTO URINAL
[2023-01-04 13:52] LABS: Troponin 5 2HR 22.57 ng/L (0-15)
[2023-01-04 14:02] LABS: Troponin 5 2HR Delta -3.43 ABS# (0-10)
--- NOTE | 2023-01-04 14:09 | PC.NURSE ---
PT VOIDED 300ML OF PALE YELLOW URINE
== END 2023-01-04 14:28 | disposition home or self-care (01) ==
PROVIDERS: Emergency Medicine; Emergency Provider Emergency Medicine; PCP Nurse Practitioner Family
DX: I11.0 Hypertensive heart disease with heart failure (principal); I50.9 Heart failure, unspecified; J44.9 Chronic obstructive pulmonary disease, unspecified; J81.1 Chronic pulmonary edema; Z79.82 Long term (current) use of aspirin; Z79.85 Long-term (current) use of injectable non-insulin antidiabetic drugs; Z79.84 Long term (current) use of oral hypoglycemic drugs; Z20.822 Contact with and (suspected) exposure to COVID-19; Z87.891 Personal history of nicotine dependence; E11.9 Type 2 diabetes mellitus without complications; E78.2 Mixed hyperlipidemia; Z95.0 Presence of cardiac pacemaker
CPT/HCPCS: 71045; 80053; 83880; 84484; 85025; 87426; 87804; 93005; 94640; 96374; 96375; 99285; J1940; J2930; J7613

== ENCOUNTER → 2023-01-08 11:17 | Outpatient (BNVA) | payer MEDICAID, SELFPAY | PROVIDERS: PCP Nurse Practitioner Family; Visit Provider Nurse Practitioner Family | DX: I50.9 Heart failure, unspecified (principal) | CPT/HCPCS: 80053; 85025 ==

== ENCOUNTER 2023-01-21 06:00 | Outpatient (RCR) | payer MEDICAID, SELFPAY | END 2023-02-07 23:59 | disposition home or self-care (01) | LOC: TPT 06:00 | PROVIDERS: PCP Nurse Practitioner Family; Visit Provider Orthopaedic Surgery | DX: M54.9 Dorsalgia, unspecified (principal); G89.29 Other chronic pain | CPT/HCPCS: 97110; 97161 ==

== ENCOUNTER 2023-02-08 06:00 | Outpatient (RCR) | payer MEDICAID, SELFPAY | END 2023-03-09 23:59 | disposition home or self-care (01) | LOC: TPT 06:00 | PROVIDERS: PCP Nurse Practitioner Family; Visit Provider Orthopaedic Surgery | DX: G89.29 Other chronic pain (principal); M54.9 Dorsalgia, unspecified | CPT/HCPCS: 97110 ==

== ENCOUNTER 2023-02-11 09:12 | Outpatient (CLI) | payer MEDICAID, SELFPAY ==
--- NOTE | 2023-02-11 09:50 | XR_ITS ---
WS: [id number] XR KUB [id number] REASON FOR EXAM: Stones FINDINGS: Compared to the examination of 02/11/2022, the calculus overlying the lower pole of the left kidney now measures 7 mm, previously 5 mm. No other urinary tract calculi. No other interval change or new finding. XR/XR KUB [id number] IMPRESSION: Lower pole left renal calculus.
== END 2023-02-11 09:13 | disposition home or self-care (01) ==
LOC: RAD 09:15
PROVIDERS: PCP Nurse Practitioner Family; Visit Provider Urology
DX: N20.0 Calculus of kidney (principal)
CPT/HCPCS: 74018; 81003; 99213

== ENCOUNTER → 2023-02-26 10:02 | Outpatient (BNVA) | payer MEDICAID, SELFPAY | PROVIDERS: PCP Nurse Practitioner Family; Visit Provider Internal Medicine Cardiovascular Disease | DX: I42.0 Dilated cardiomyopathy (principal); I11.0 Hypertensive heart disease with heart failure; I50.9 Heart failure, unspecified; E11.65 Type 2 diabetes mellitus with hyperglycemia; E78.2 Mixed hyperlipidemia; Z95.810 Presence of automatic (implantable) cardiac defibrillator; Z87.891 Personal history of nicotine dependence; Z79.82 Long term (current) use of aspirin; Z79.84 Long term (current) use of oral hypoglycemic drugs | CPT/HCPCS: 99214 ==

== ENCOUNTER 2023-03-10 06:00 | Outpatient (RCR) | payer MEDICAID, SELFPAY | END 2023-04-09 23:59 | disposition home or self-care (01) | LOC: TPT 06:00 | PROVIDERS: PCP Nurse Practitioner Family; Visit Provider Orthopaedic Surgery | DX: M54.9 Dorsalgia, unspecified (principal); G89.29 Other chronic pain | CPT/HCPCS: 97110 ==

== ENCOUNTER 2023-03-12 07:17 | Outpatient (CLI) | payer MEDICAID, SELFPAY ==
--- NOTE | 2023-03-12 07:15 | US_ITS ---
WS: [id number] Abdomen ultrasound, 03/12/2023 Clinical Data: R10.11 - Right upper quadrant pain Comparison: Abdomen ultrasound, 12/20/2014 Findings: The pancreas shows no cyst, pseudocyst or evidence of pancreatitis. The liver is enlarged measuring 18.26 cm with mixed echotexture consistent with fatty infiltration Th e liver shows no cysts, masses or dilated intrahepatic ducts. The gallbladder has no stones or sludge. The wall measures 0.3 cm with no pericholecystic fluid. The common bile duct is 0.3 cm and no intraductal abnormalities are noted. The right kidney is 11.7 cm. No cysts, masses or hydronephrosis is seen. The left kidney is 11.9 cm. There may be a small left renal stone The abdominal aorta is not dilated and the inferior vena cava has normal flow. No vascular abnormalities are seen. The spleen measures 9.6 cm and there are no intrasplenic masses or capsular abnormalities. US/US abdomen complete* [id number] Impression: 1. Hepatomegaly with fatty infiltration. 2. Small left renal stone.
== END 2023-03-12 07:18 | disposition home or self-care (01) ==
LOC: RAD 07:20
PROVIDERS: PCP Nurse Practitioner Family; Visit Provider Nurse Practitioner Family
DX: R10.11 Right upper quadrant pain (principal); K76.0 Fatty (change of) liver, not elsewhere classified; N20.0 Calculus of kidney
CPT/HCPCS: 76700

== ENCOUNTER → 2023-03-31 08:56 | Outpatient (BNVA) | payer MEDICAID, SELFPAY | PROVIDERS: PCP Nurse Practitioner Family; Visit Provider Nurse Practitioner Family | DX: E11.42 Type 2 diabetes mellitus with diabetic polyneuropathy (principal); R63.4 Abnormal weight loss | CPT/HCPCS: 80048; 80061; 80076; 83036; 84439; 84443; 85025 ==

== ENCOUNTER → 2023-04-01 09:22 | Outpatient (BNVA) | payer MEDICAID, SELFPAY | PROVIDERS: PCP Nurse Practitioner Family; Visit Provider Nurse Practitioner Family | DX: R19.7 Diarrhea, unspecified (principal) | CPT/HCPCS: 87045; 87177; 87209; 87427; 87449; 87493; 87506 ==

== ENCOUNTER 2023-04-02 07:38 | Outpatient (CLI) | payer MEDICAID, SELFPAY ==
--- NOTE | 2023-04-02 08:00 | NM_ITS ---
WS: [id number] NUCLEAR MEDICINE HIDA SCAN CLINICAL INFORMATION: R10.11 - Right upper quadrant pain TECHNIQUE: Following intravenous administration of 7.9 mCi of technetium 99m mebrofenin, images of th e abdomen were obtained over the course of 60 minutes. Next, gallbladder ejection fraction was determ ined by obtaining preprandial and one-hour postprandial images of the gallbladder following oral moraima stion of Ensure. COMPARISON: Ultrasound March 12, 2023 FINDINGS: Normal hepatic uptake at 5 minutes. Hepatomegaly. Normal hepatic excretion. Gallbladder is visualized by 10 minutes. No evidence of acute cholecystitis. Normal small bowel and common bile duct activity. Gallbladder ejection fraction 94% within normal garcia its. No evidence of chronic cholecystitis. NM/NM hepatobiliary w phar* [id number] IMPRESSION: 1. No evidence of acute or chronic cholecystitis. 2. Gallbladder ejection fraction 94% within normal limits. 3. Hepatomegaly.
== END 2023-04-02 07:39 | disposition home or self-care (01) ==
LOC: RAD 07:39
PROVIDERS: PCP Nurse Practitioner Family; Visit Provider Nurse Practitioner Family
DX: R10.11 Right upper quadrant pain (principal); R11.0 Nausea; R16.0 Hepatomegaly, not elsewhere classified
CPT/HCPCS: 78227; A9537

== ENCOUNTER → 2023-04-03 09:31 | Outpatient (BNVA) | payer MEDICAID, SELFPAY | PROVIDERS: PCP Nurse Practitioner Family; Visit Provider Specialist | DX: M12.811 Other specific arthropathies, not elsewhere classified, right shoulder (principal); Z71.89 Other specified counseling | CPT/HCPCS: 20610; J1100; J2795; J3301 ==

== ENCOUNTER 2023-04-06 21:15 | Inpatient (IN) | payer MEDICAID, SELFPAY ==
[2023-04-06] VITALS (8 sets, daily range): BP systolic 131–147; BP diastolic 71–100; PULSE 71–140; RESP 20–44; TEMP 36.7; O2SAT 45–98; BMI 41.9; BMI 25.0
--- NOTE | 2023-04-06 21:17 | ED_ITS ---
HPI - SOB/Dyspnea General: Chief Complaint: Shortness of Breath/Dyspnea Stated Complaint: SOB Time Seen by Provider: 04/06/23 21:17 Limitations: other (Severe respiratory distress) History of Present Illness: HPI Narrative: 62-year-old gentleman with history of COPD and heart failure with reduced ejection fracture presenting to the emergency department in respiratory distress. Apparently was out [place] the [place] earlier today and had a transient episode of shortness of breath however this improved. Subsequently he had another episode and was brought to the emergency department. History is limited by patient's acuity of condition due to severe respiratory distress. Review of Systems General: Reports: ROS unobtainable due to medical condition PFSH ED PFSH: Medical History Bipolar II disorder C. difficile diarrhea Cardiac resynchronization therapy defibrillator (CLOTH SHADER-D) in place [address] [place], 07/11/2020 Cardiomyopathy Cataracts, bilateral CHF (congestive heart failure) Diabetes GERD (gastroesophageal reflux disease) Hemorrhoids Hypertension Mixed hyperlipidemia ALBERTO (obstructive sleep apnea) Osteoarthritis of hands, bilateral Pacemaker Psychiatric care Right ureteral calculus Urolithiasis Multi stone former, calcium oxalate mono and dihydrate. Also calcium servando sphate. Multiple interventions including endoscopy with laser lithotripsy and ESWL. Metabolic treatment with potassium citrate Surgical History H/O esophagogastroduodenoscopy (02/27/21) gastritis, duodenitis History of carpal tunnel release of both wrists History of colonoscopy (02/27/21) descending colon polyp, hemorrhoids History of permanent cardiac pacemaker placement History of urethral stent Hx of cataract surgery Hx of lithotripsy Hx of shoulder surgery Hx of umbilical hernia repair Family History Grandfather CAD (coronary artery disease) Brother Cancer colon cancer Diabetes Mother Diabetes Father No problems noted. Other Hypertension Rheumatoid arthritis Social History Smoking and tobacco status: former smoker Quit status (tobacco): has quit using tobacco Year quit tobacco: 1999 Second hand smoke exposure: No Alcohol intake: former Year of sobriety/quit date alcohol: 1997 Substance/Drug Use: never Caregiver/support person: Yes Lives independently: Yes Household members: spouse Marital status: service: No Current occupational status: disabled Current gender identity: Male Special fernando needs: No Agree to transfusion: Yes Physical Exam Const: COMMON NORMALS: alert GENERAL APPEARANCE: well developed and ill appearing HENMT: COMMON NORMALS: normocephalic and atraumatic HEAD & SCALP: normocephalic and atraumatic Eye: COMMON NORMALS: conjunctivae normal CONJUNCTIVA: Yes conjunctivae normal SCLERA: sclerae normal Neck/C-Spine: COMMON NORMALS: supple GENERAL: Yes trachea midline Resp: EFFORT & INSPECTION: Yes tachypneic, Yes respiratory distress and Yes labored AUSCULTATION: wheezes and diminished lung sounds Cardio: COMMON NORMALS: regular rhythm RATE: tachycardic RHYTHM: regular rhythm GI: COMMON NORMALS: Soft to palpation PALPATION: Yes Soft to palpation and No Tenderness to palpation present (GI) PERCUSSION: normal to percussion Extremity: GENERAL: Yes normal exam except as noted and No edema Neuro: COMMON NORMALS: moves all extremities SENSORIUM/ORIENTATION: Yes alert and No Orientation impaired Course Vital Signs: Vital signs: Vital Signs Temperature 98.1 F 04/06/23 22:33 Pulse Rate 70 04/07/23 02:39 Respiratory Rate 20 H 04/07/23 00:00 Blood Pressure 113/74 04/07/23 00:00 Pulse Oximetry 98 04/07/23 02:39 Oxygen Delivery Me thod Nasal Cannula 04/07/23 01:38 Oxygen Flow Rate 50 04/06/23 23:00 Fraction of Inspir ed Oxygen 40 04/07/23 02:39 MDM - SOB/Dyspnea Medical Decision Making 62-year-old gentleman presenting to the emergency department in severe respiratory distress. Initially able to answer questions however appears to be in extremis. Room air oxygen saturation with good waveform approximately 40% with supplemental oxygen applied. Patient required assistance with airway positioning with preparation for further airway intervention including BiPAP and process. He did have improvement in both mental state, and oxygenation with supplemental oxygen via nonrebreather. Patient placed on BiPAP and albuterol continuous treatment for diminished wheezing lung sounds ordered. Limited initial interpretation secondary to respiratory variation of twelve-lead EKG shows paced rhythm with ectopy of junctional tachycardia and interventricu lar conduction delay. Somewhat improved on repeat. Initial ABG shows pH 7.17 with normal PCO2 and appropriate hyperoxemia given supplemental oxygen. Most likely secondary to metabolic stress due to hypoxia. Labs notable for hemoconcentration relatively and leukocytosis. Labs with normal electrolytes, mildly decreased bicarb and increased anion gap likely secondary to lactic acidosis secondary to hypoxemia. Negative range 2-hour delta troponin. BNP is elevated. On reassessment of lung sounds and in conjugation review of bedside x-ray patient appears to have pulmonary edema. Nitro patch applied and BiPAP continued. Patient clinically is improving with regards to respiratory effort and mental status. Given severity of symptoms and possible report of abdominal pain associated with symptoms patient requires CT imaging. Patient has cardiomegaly and patchy bilateral airspace infiltrates, no intra-abdominal pathology to explain symptoms. Patient treated with antibiotics for empiric treatment as well as Lasix for diuresis. Clinical history is inconsistent with sepsis and I believe that IV fluids at this point would be detrimental given the patient's more likely etiology of symptoms of flash pulmonary edema. Patient does have a history of cardiomyopathy. The results of ED evaluation were discussed with the patient including plan for admission due to requirement for level of care not available if discharged to prevent significant worsening/deterioration. Patient agreeable with plan. Discussed with hospitalist service who was agreeable to admit patient. Medical Records I reviewed the patient's medical records. Lab Data I reviewed the patient's lab results. 04/06/23 21:25 04/06/23 21:25 Labs/Radiology: Radiology Impressions Chest X-Ray 04/06/23 21:22 IMPRESSION: 1. Cardiomegaly. 2. Interstitial edema and pulmonary vascular congestion. 3. Patchy bilateral ground-glass airspace opacities reflecting alveolar edema and/or pneumonic infiltrates. 4. Right-sided pacemaker. Chest/Abdomen/Pelvis CT 04/06/23 22:07 IMPRESSION: 1. Negative for pulmonary embolus. 2. Small bilateral pleural effusions. 3. Cardiomegaly. 4. Coronary artery atherosclerotic calcifications. 5. Patchy bilateral airspace infiltrates. IMPRESSION: No acute findings. Laboratory Results WBC 24.3 10^3/uL (4.0-10.0) H 04/06/23 21:25 RBC 5.41 10^6/uL (4.1-5.3) H 04/06/23 21:25 Hgb 16.7 g/dL (11.7-16.6) H 04/06/23 21:25 Hct 52.4 % (42.0-52.0) H 04/06/23 21:25 MCV 96.9 fl (80-94) H 04/06/23 21:25 MCH 30.9 pg (28.0-34.0) 04/06/23 21:25 MCHC 31.9 g/dL (30.0-36.0) 04/06/23 21:25 RDW 13.7 % (12.1-15.1) 04/06/23 21:25 Plt Count 240 10^3/cmm (130-400) 04/06/23 21:25 MPV 11.8 fL (7.4-10.4) H 04/06/23 21:25 Lymph % (Auto) Not Reportable 04/06/23 21:25 Esmeralda % (Auto) Not Reportable 04/06/23 21:25 Lymph # (Auto) Not Reportable 04/06/23 21:25 Esmeralda # (Auto) Not Reportable 04/06/23 21:25 Total Counted 100 (0-100) 04/06/23 21:25 Atypical Lymphs % 0.0 % (0-5) 04/06/23 21: Absolute Neutrophils 13.6 10^3/cmm (1.4-6.5) H 04/06/23 21:25 Segmented Neutrophils 56 % 04/06/23 21:25 Abs Segm Neuts (Man) 13.6 10/cmm (1.6-7.1) H 04/06/23 21:25 Band Neutrophils 0.0 % 04/06/23 21:25 Abs Band Neuts (Man) 0.0 10^3/cmm (0.0-1.2) 04/06/23 21:25 Absolute Lymphocytes 9.5 10^3/cmm (1.2-3.4) H 04/06/23 21:25 Lymphocytes (Manual) 39 % 04/06/23 21:25 Monocytes (Manual) 5.0 % 04/06/23 21: Absolute Monocytes 1.2 10^3/cmm (0.1-0.6) H 04/06/23 21:25 Eosinophils (Manual) 0 % 04/06/23 21:25 Absolute Eosinophils 0.0 10^3/cmm (0.0-0.7) 04/06/23 21:25 Basophils (Manual) 0.0 % 04/06/23 21:25 Absolute Basophils 0.0 10^3/cmm (0.0-0.2) 04/06/23 21:25 Platelet Estimate Normal (Normal) 04/06/23 21:25 Specimen Type Arterial 04/06/23 21:25 Sample Site Radial, right 04/06/23 21:25 ABG pH 7.17 (7.35-7.45) L* 04/06/23 21:25 ABG pCO2 43.9 mmHg (35-45) 04/06/23 21: ABG pO2 281.0 mmHg (80.0-100.0) H 04/06/23 21:25 ABG HCO3 16.1 mmol/L (22-26) L 04/06/23 21:25 ABG Base Excess -12.1 mmol/L (-2.0-2.0) L 04/06/23 21:25 Oral Test Pos 04/06/23 21:25 Hematocrit 50.3 % (42-52) 04/06/23 21:25 Hgb O2 Saturation 99.0 % (95-100) 04/06/23 21:25 Carboxyhemoglobin 0.8 %THgb (0.4-20.1) 04/06/23 21:25 Methemoglobin 0.5 % (0.4-1.5) 04/06/23 21:25 Total Hemoglobin 16.4 g/dL (14-18) 04/06/23 21:25 O2 Delivery Device Bipap 04/06/23 21:25 FiO2 100.0 % 04/06/23 21:25 Network Security Officer ID Alewe 04/06/23 21:25 Sodium 139 mmol/L (136-145) 04/06/23 21:25 Potassium 4.5 mmol/L (3.5-5.1) 04/06/23 21:25 Chloride 101 mmol/L (98-107) 04/06/23 21:25 Carbon Dioxide 20 mmol/L (22-29) L 04/06/23 21:25 Anion Gap 22.5 (5-19) H 04/06/23 21:25 BUN 18 mg/dL (8-23) 04/06/23 21:25 Creatinine 0.9 mg/dL (0.7-1.2) 04/06/23 21:25 GFR Calculation 85.5 mL/min (90-130) L 04/06/23 21:25 Glucose 180 mg/dL (65-115) H 04/06/23 21:25 Calculated Osmolality 294 mOsm/kg (285-295) 04/06/23 21:25 Lactic Acid 8.0 mmol/L (0.5-2.2) H* 04/06/23 21:25 Lactic Acid (Sepsis) Cancelled 04/06/23 23:23 Calcium 9.5 mg/dL (8.5-10.5) 04/06/23 21:25 Total Bilirubin 0.3 mg/dL (0.15-1.2) 04/06/23 21:25 AST 19 U/L (0-40) 04/06/23 21:25 ALT 31 U/L (0-41) 04/06/23 21:25 Alkaline Phosphatase 88 U/L (40-130) 04/06/23 21:25 Troponin T Baseline 30 ng/L (0-15) H 04/06/23 21:25 Troponin T 120 Minute 31.68 ng/L (0-15) H 04/06/23 22:53 Delta Troponin T 1.68 ABS# (0-10) 04/06/23 22:53 NT-Pro-B Natriuret Pep 2894 pg/mL (0-125) H 04/06/23 21:25 Total Protein 7.3 g/dL (6.6-8.7) 04/06/23 21:25 Albumin 4.5 g/dL (3.5-5.2) 04/06/23 21:25 Globulin 2.8 g/dL (1.3-4.6) 04/06/23 21:25 Critical Care Time Critical Care Time: Critical Care Time: Yes Total Critical Care Time: 55 Attestation: Due to a high probability of clinically significant, possibly life threatening deterioration, the patient required my highest level of attention and preparedness to intervene emergently and I personally spent this critical care time directly and personally managing the patient. This critical care time in cluded obtaining a history; examining the patient; pulse oximetry; ordering and review of laboratory and imaging studies; arranging urgent treatment with development of a management plan; evaluation of patient's response to treatment; frequent reassessment; and, discussions with other providers as applicable. It was exclusive of separately billable procedures. Primary system involved is respiratory. Discharge Plan Discharge Patient Disposition: Admitted As Inpatient Admit Provider: Krystle Levy Clinical Impression: Flash pulmonary edema, Acute hypoxemic respiratory failure, Acidosis, lactic, Leukocytosis, Pneumonia Condition: Stable Coding Level of Care Code ED Scroll Shear Operator for Ck Crooks
[2023-04-06] MEDS: albuterol 2.5 mg/3 mL Neb 10 MG INHALATION (21:20)
--- NOTE | 2023-04-06 21:22 | XRR_ITS ---
PROCEDURE INFORMATION: Exam: XR Chest Exam date and time: 04/06/2023 9:36 PM Age: 62 years old Clinical indication: Shortness of breath; Additional info: SOB TECHNIQUE: Imaging protocol: Radiologic exam of the chest. Views: 1 view. COMPARISON: CR (CHEST, ) 01/04/2023 11:01 AM FINDINGS: Tubes, catheters and devices: Right-sided pacemaker. Lungs: Interstitial edema and pulmonary vascular congestion. Patchy bilateral ground-glass airspace opacities reflecting alveolar edema and/or pneumonic infiltrates. Pleural spaces: Unremarkable. No pleural effusion. No pneumothorax. Heart/Mediastinum: Cardiomegaly. Bones/joints: Unremarkable. XR/XR chest 1V portable [id number] IMPRESSION: 1. Cardiomegaly. 2. Interstitial edema and pulmonary vascular congestion. 3. Patchy bilateral ground-glass airspace opacities reflecting alveolar edema and/or pneumonic infiltrates. 4. Right-sided pacemaker.
--- NOTE | 2023-04-06 21:22 | ECG_ITS ---
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 Measurements Intervals [place] Rate: 78 P: -14 [place]: 156 QRS: 36 QRSD: 104 T: -2 QT: 381 QTc: 437 Interpretive Statements SINUS RHYTHM Compared to ECG 01/04/2023 13:06:29 Atrial-paced complex(es) or rhythm no longer present Ventricular-paced complex(es) or rhythm no longer present Electronically Signed On 04-07-2023 23:29:32 CDT by Reese Andrew M.D. [id number]
[2023-04-06] MEDS: dexamethasone 10 mg/mL INJ IVP (21:34)
[2023-04-06 21:39] LABS: ABG PCO2 43.9 mmHg (35-45); Arterial Blood Gas Hematocrit 50.3 % (42-52); Base Excess ABG -12.1 mmol/L (-2.0-2.0); Blood Gas Allen Test Pos; Blood Gas Sample Site Radial, right; Blood Gas Sample Type Arterial; Carboxyhemoglobin 0.8 %THgb (0.4-20.1); HCO3 ABG 16.1 mmol/L (22-26); Methemoglobin 0.5 % (0.4-1.5); Oxygen Device BIPAP; Total Hemoglobin 16.4 g/dL (14-18)
[2023-04-06 21:40] LABS: ABG PH Result 7.17 (7.35-7.45)
[2023-04-06 21:51] LABS: Hematocrit 52.4 % (42.0-52.0); Hemoglobin 16.7 g/dL (11.7-16.6); Mean Corpuscular HGB Conc 31.9 g/dL (30.0-36.0); Mean Corpuscular Hemoglobin 30.9 pg (28.0-34.0); Mean Corpuscular Volume 96.9 fl (80-94); Mean Platelet Volume 11.8 fL (7.4-10.4); Platelet Count 240 10^3/cmm (130-400); Red Blood Count 5.41 10^6/uL (4.1-5.3); Red Cell Distribution Width 13.7 % (12.1-15.1); White Blood Count 24.3 10^3/uL (4.0-10.0)
[2023-04-06 22:02] LABS: Troponin(5th) Baseline 30 ng/L (0-15)
--- NOTE | 2023-04-06 22:07 | CTR_ITS ---
PROCEDURE INFORMATION: Exam: CTA Chest With Contrast Exam date and time: 04/06/2023 10:33 PM Age: 62 years old Clinical indication: Abdominal pain; Generalized; Chest pressure; Patient HX: Resp distress; Additional info: Resp distress/failure, abd pain TECHNIQUE: Imaging protocol: Computed tomographic angiography of the chest with contrast. Exam focused on the arteries. 3D rendering (Not supervised by radiologist): MIP and/or 3D reconstructed images were created by the technologist. Radiation optimization: All CT scans at this facility use at least one of these dose optimization techniques: automated exposure control; mA and/or kV adjustment per patient size (includes targeted exams where dose is matched to clinical indication); or iterative reconstruction. Contrast material: OMNI 350; Contrast volume: 100 ml; Contrast route: INTRAVENOUS (IV); REPORTING DATA: Count of CT and Cardiac NM exams in prior 12 months: This patient has received [address] and 0 known cardiac nuclear medicine studies in the 12 months prior to the current study. COMPARISON: CR (CHEST, ) 04/06/2023 9:36 PM RADIATION DOSE METRICS: Total DLP (mGy-cm): 480.2 FINDINGS: Pulmonary arteries: Normal. No pulmonary emboli. Aorta: Unremarkable. No aortic aneurysm. No aortic dissection. Lungs: Patchy bilateral airspace infiltrates. Pleural spaces: Small bilateral pleural effusions. Heart: Cardiomegaly. Coronary arteries: Coronary artery atherosclerotic calcifications. Lymph nodes: Unremarkable. No enlarged lymph nodes. Bones/joints: Unremarkable. No acute fracture. Soft tissues: Unremarkable. PROCEDURE INFORMATION: Exam: CT Abdomen And Pelvis With Contrast Exam date and time: 04/06/2023 10:33 PM Age: 62 years old Clinical indication: Abdominal pain; Generalized; Chest pressure; Patient HX: Resp distress; Additional info: Resp distress/failure, abd pain TECHNIQUE: Imaging protocol: Computed tomography of the abdomen and pelvis with contrast. Radiation optimization: All CT scans at this facility use at least one of these dose optimization techniques: automated exposure control; mA and/or kV adjustment per patient size (includes targeted exams where dose is matched to clinical indication); or iterative reconstruction. Contrast material: OMNI 350; Contrast volume: 100 ml; Contrast route: INTRAVENOUS (IV); REPORTING DATA: Count of CT and Cardiac NM exams in prior 12 months: This patient has received [address] and 0 known cardiac nuclear medicine studies in the 12 months prior to the current study. COMPARISON: CT abdomen pelvis w con* [id number] 07/24/2021 11:20 PM RADIATION DOSE METRICS: Total DLP (mGy-cm): 1138.9 FINDINGS: Tubes, catheters and devices: Pacemaker. Liver: Normal. No mass. Gallbladder and bile ducts: Normal. No calcified stones. No ductal dilation. Pancreas: Normal. No ductal dilation. Spleen: Normal. No splenomegaly. Adrenal glands: Normal. No mass. Kidneys and ureters: Normal. No hydronephrosis. Stomach and bowel: Unremarkable. No obstruction. No mucosal thickening. Appendix: No evidence of appendicitis. Intraperitoneal space: Unremarkable. No free air. No significant fluid collection. Vasculature: Unremarkable. No abdominal aortic aneurysm. Lymph nodes: Unremarkable. No enlarged lymph nodes. Urinary bladder: Unremarkable as visualized. Reproductive: Unremarkable as visualized. Bones/joints: Unremarkable. No acute fracture. Soft tissues: Unremarkable. CT/CT angio chest w abd pel w con IMPRESSION: 1. Negative for pulmonary embolus. 2. Small bilateral pleural effusions. 3. Cardiomegaly. 4. Coronary artery atherosclerotic calcifications. 5. Patchy bilateral airspace infiltrates. IMPRESSION: No acute findings.
[2023-04-06] MEDS: FUROsemide 10 mg/mL SDV 4mL 40 MG IVP (22:09)
[2023-04-06 22:10] LABS: Alanine Aminotransferase 31 U/L (0-41); Albumin Level 4.5 g/dL (3.5-5.2); Alkaline Phosphatase 88 U/L (40-130); Anion Gap 22.5 (5-19); Aspartate Amino Transferase 19 U/L (0-40); Blood Urea Nitrogen 18 mg/dL (8-23); Calcium 9.5 mg/dL (8.5-10.5); Carbon Dioxide 20 mmol/L (22-29); Chloride 101 mmol/L (98-107); Globulin 2.8 g/dL (1.3-4.6); Glomerular Filtration Rate 85.5 mL/min (90-130); Glucose 180 mg/dL (65-115); NT Pro B Type Natriuretic Pept 2894 pg/mL (0-125); Osmolality Calculated 294 mOsm/kg (285-295); Potassium 4.5 mmol/L (3.5-5.1); Sodium 139 mmol/L (136-145); Total Bilirubin 0.3 mg/dL (0.15-1.2); Total Protein 7.3 g/dL (6.6-8.7)
[2023-04-06 22:26] LABS: Absolute Neutrophil 13.6 10^3/cmm (1.4-6.5); Absolute Segmented Neutrophil 13.6 10/cmm (1.6-7.1); Eosinophils 0 %; Lymphocytes 39 %; Lymphocytes Absolute 9.5 10^3/cmm (1.2-3.4); Monocytes Absolute 1.2 10^3/cmm (0.1-0.6); Platelet Estimate Normal (Normal); Segmented Neutrophils 56 %; Total Cells Counted 100 (0-100)
--- NOTE | 2023-04-06 23:09 | ECG_ITS ---
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 Measurements Intervals [place] Rate: 93 P: 59 ID: 160 QRS: 206 QRSD: 198 T: 44 QT: 420 QTc: 524 Interpretive Statements ELECTRONIC VENTRICULAR PACEMAKER Compared to ECG 04/06/2023 22:44:20 Sinus rhythm no longer present Electronically Signed On 04-08-2023 8:34:26 CDT by Reese Andrew M.D. [email or web address] Million Culturepearl river [facility] hospitalMox[facility] Healthmer[facility] jewish hospitalSoompi/store/OM/[id number]
[2023-04-06] MEDS: cefepime 2,000 MG in sodium chloride 0.9% (plus) 50 ML 100 MG IV (23:15)
[2023-04-06 23:29] LABS: Troponin 5 2HR 31.68 ng/L (0-15)
[2023-04-06 23:31] LABS: Reflex Lactate Order REFLEX LACTIC ORDERD
[2023-04-06 23:32] LABS: Troponin 5 2HR Delta 1.68 ABS# (0-10)
[2023-04-06] MEDS: vancomycin 2,000 MG/400 ML PIGGYBACK 200 MG IV (23:37)
[2023-04-07] VITALS (49 sets, daily range): BP systolic 98–137; BP diastolic 48–80; PULSE 70–90; RESP 14–27; TEMP 36.5; O2SAT 93–98; BMI 42.3
[2023-04-07 00:41] LABS: Lactate (Lactic Acid level) 2.6 mmol/L (0.5-2.2)
--- NOTE | 2023-04-07 01:33 | PC.NURSE ---
Admission Note: Pt arrived to ICU 6 @0133. Continuos cardiac monitoring continued. Pt reports no pain. No skin issues noted at this time. Dr. Levy seen pt via video chat directly after arrival to room.
--- NOTE | 2023-04-07 01:56 | P.HP_ITS ---
Providers/Chief Complaint Admitting Physician: Krystle Levy MD Primary Care Provider: ANDRES Pettit Chief Complaint: SOB History of Present Illness Amrik Alexander is a 62 year old male With past medical history of bipolar disorder, C. difficile, cardiac resynchronization therapy defibrillator, cardiomyopathy, congestive heart failure, diabetes, GERD, hyperlipidemia, obstructive sleep apnea, urolithiasis, osteoarthritis presented to the hospital today for complaint of shortness of breath that suddenly started. He states he was sick about a week ago and had nausea vomiting diarrhea and went to see his primary care doctor and had work-up ordered to rule out gallbladder disease. He states since then although symptoms are resolved and he felt better. Today he was at a samson and walk to the bathroom upon which she suddenly became short of breath. At that point patient decided to come to the hospital. At the time of the encounter patient is starting to feel better already. He was given Lasix in the ER and he states he urinated about 3-1/2 L. He wears a CPAP machine at nighttime for his sleep apnea and does not know his settings. He is not on any home oxygen. He states he does not have a known history of A-fib however recently he was told that he may need to take medication for it. ED course: On arrival blood pressure 113/74, saturating 98% on 40% FiO2 BiPAP. Initially on arrival patient's saturation was 40% on room air and decision was being made to intubate however BiPAP was tried and patient started to improve. Initial gas showed pH of 7.17. Lactic acid 8. Chest x-ray showed pulmonary vascular congestion and small bilateral pleural effusions. Patchy bilateral groundglass airspace disease reflecting alveolar edema or pneumonic infiltrates right-sided pacemaker. Subsequently CT chest abdomen pelvis was done which was negative for PE. Medications/Allergies Home Medications Medication Instructions Recorded Confirmed Last Taken Type aspirin 325 mg tablet,delayed 325 mg PO DAILY 12/20/19 04/07/23 04/06/23 History release (Aspir-Sagrario) blood-glucose meter (Blood Glucose #1 ea 07/06/20 04/03/23 Unknown Rx Monitoring kit) sacubitril 97 mg-valsartan 103 mg 1 tab PO BID #180 tabs 04/16/22 04/07/23 04/06/23 Rx tablet spironolactone 25 mg tablet 12.5 mg PO DAILY #90 tabs 04/16/22 04/07/23 04/06/23 Rx albuterol sulfate 90 mcg/actuation 2 puff inhalation Q6H PRN 05/20/22 04/07/23 04/06/23 Rx aerosol inhaler (ProAir HFA) shortness of breath or wheezing #18 grams budesonide-formoterol HFA 160 2 puff inhalation BID #10.2 grams 05/20/22 04/07/23 04/06/23 Rx mcg-4.5 mcg/actuation aerosol inhaler (Symbicort) fenofibrate 160 mg tablet 160 mg PO DAILY #90 tabs 05/20/22 04/07/23 04/05/23 Rx canagliflozin 300 mg tablet 300 mg PO DAILY 06/13/22 04/07/23 04/06/23 History (Invokana) glipizide 10 mg tablet, extended 10 mg PO DAILY 06/13/22 04/07/23 04/06/23 History release 24 hr aowsqepdcyra-gltlsqew-zyejf acid 1 cap PO DAILY 06/13/22 04/07/23 04/06/23 History 400 mcg-vitamin K 80 mcg capsule (Multi For Her 50 Plus) nebulizer machine with tubing and #1 ea 09/09/22 04/03/23 Unknown Rx mask fluticasone propionate 50 2 spray intranasal DAILY #16 grams 09/10/22 04/07/23 Unknown Rx mcg/actuation nasal spray,suspension (Flonase Allergy Relief) allopurinol 300 mg tablet See Rx Instructions .Route 11/05/22 04/07/23 Unknown Rx .COMPLEX #90 tabs albuterol sulfate 2.5 mg/3 mL 2.5 mg (3 mL) inhalation QID PRN 11/12/22 04/07/23 Unknown Rx (0.083 %) solution for nebulization shortness of breath or wheezing #180 mL blood sugar diagnostic (Blood #100 ea 12/05/22 04/03/23 Unknown Rx Glucose Test strips) lancets 33 gauge (BD Ultra Fine #100 ea 12/05/22 04/03/23 Unknown Rx Lancets) furosemide 20 mg tablet (Lasix) 20 mg PO DAILY #7 tabs 01/04/23 04/03/23 Unknown Rx carvedilol 25 mg tablet 25 mg PO BID #180 tabs 01/22/23 04/07/23 04/06/23 Rx magnesium L-lactate 84 mg 84 mg PO DAILY #90 tabs 02/04/23 04/07/23 04/06/23 Rx tablet,extended release metformin 500 mg tablet,extended 2,000 mg PO DAILY #360 tabs 02/04/23 04/07/23 04/06/23 Rx release 24 hr potassium citrate 10 mEq (1,080 20 meq PO BID #120 tabs 02/11/23 04/07/23 04/06/23 Rx mg) tablet,extended release dulaglutide 0.75 mg/0.5 mL See Rx Instructions .Route 02/21/23 04/07/23 04/01/23 Rx subcutaneous pen injector .COMPLEX #4 mL (Trulicity) rosuvastatin 20 mg tablet See Rx Instructions .Route 02/24/23 04/07/23 04/06/23 Rx .COMPLEX #90 tabs omeprazole 40 mg capsule,delayed See Rx Instructions .Route 03/07/23 04/07/23 04/06/23 Rx release .COMPLEX #90 caps cetirizine 10 mg tablet (Allergy See Rx Instructions .Route 03/10/23 04/07/23 04/06/23 Rx Relief (cetirizine)) .COMPLEX #90 tabs sertraline 100 mg tablet 100 mg PO DAILY #30 tabs 03/19/23 04/07/23 04/06/23 Rx amiodarone 400 mg tablet 400 mg PO DAILY #65 tabs 03/25/23 04/07/23 Unknown Rx ondansetron HCl 4 mg tablet 4 mg PO QID PRN nausea and 03/31/23 04/07/23 Unknown Rx vomiting #30 tabs Allergies Allergy/AdvReac Type Severity Reaction Status Date / Time isosorbide Allergy unknown Verified 04/07/23 01:57 Penicillins AdvReac rash Verified 04/07/23 01:57 PFSH Acute PFSH: Medical History Bipolar II disorder C. 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 [place], 07/11/2020 Cardiomyopathy Cataracts, bilateral CHF (congestive heart failure) Diabetes GERD (gastroesophageal reflux disease) Hemorrhoids Hypertension Mixed hyperlipidemia ALBERTO (obstructive sleep apnea) Osteoarthritis of hands, bilateral Pacemaker Psychiatric care Right ureteral calculus Urolithiasis Multi stone former, calcium oxalate mono and dihydrate. Also calcium phosphate. Multiple interventions including endoscopy with laser lithotripsy and ESWL. Metabolic treatment with potassium citrate Surgical History H/O esophagogastroduodenoscopy (02/27/21) gastritis, duodenitis History of carpal tunnel release of both wrists History of colonoscopy (02/27/21) descending colon polyp, hemorrhoids History of permanent cardiac pacemaker placement History of urethral stent Hx of cataract surgery Hx of lithotripsy Hx of shoulder surgery Hx of umbilical hernia repair Family History Grandfather CAD (coronary artery disease) Brother Cancer colon cancer Diabetes Mother Diabetes Father No problems noted. Other Hypertension Rheumatoid arthritis Social History Smoking and tobacco status: former smoker Quit status (tobacco): has quit using tobacco Year quit tobacco: 1999 Second hand smoke exposure: No Alcohol intake: former Year of sobriety/quit date alcohol: 1997 Substance/Drug Use: never Caregiver/support person: Yes Lives independently: Yes Household members: spouse Marital status: service: No Current occupational status: disabled Current gender identity: Male Special fernando needs: No Agree to transfusion: Yes Vitals/I&O/Wt Last Vital Signs Temp 98.1 F 04/06/23 22:33 Pulse 83 04/07/23 00:00 Resp 20 H 04/07/23 00:00 BP 113/74 04/07/23 00:00 Pulse Ox 97 04/07/23 00:00 O2 Del Method BiPAP 04/07/23 00:00 O2 Flow Rate 50 04/06/23 23:00 FiO2 100 04/06/23 21:20 04/06/23 04/06/23 04/07/23 14:59 22:59 06:59 Intake Total 450 / 450 Balance 450 / 450 Weight last 48 hrs Weight 115.258 kg Weight 72.575 kg Weight 117.934 kg Physical Exam Narrative: General: Alert oriented x3, patient seen laying in bed appearing comfortable at this time on 3 L nasal cannula. States he is already feeling a lot better. HEENT: Normocephalic, atraumatic, EOMI, breathing comfortably, no acute respiratory distress Cardio: Regular rate rhythm, normal S1-S2 Respiratory: Clear to auscultation, diminished at bases GI: Abdomen soft, nontender, bowel sounds + Extremities: No edema noted. Data 04/06/23 21:25 04/06/23 21:25 Micro: Microbiology 04/06/23 23:23 Blood Culture - Preliminary Blood SPECIMEN COLLECTED 04/06/23 23:23 Blood Culture - Preliminary Blood SPECIMEN COLLECTED A&P Assessment and plan (1) Flash pulmonary edema: (2) Acute hypoxemic respiratory failure: (3) Acidosis, lactic: (4) Leukocytosis: (5) Pneumonia: (6) GERD (gastroesophageal reflux disease): (7) ALBERTO (obstructive sleep apnea): (8) ICD (implantable cardioverter-defibrillator), dual, in situ: (9) Diabetic peripheral neuropathy associated with type 2 diabetes mellitus: (10) Osteoarthritis of hands, bilateral: (11) COPD (chronic obstructive pulmonary disease): (12) Cardiomyopathy: Qualifiers: Cardiomyopathy type: dilated Qualified Code(s): I42.0 - Dilated cardiomyopathy (13) Mixed hyperlipidemia: (14) Hypertension: Qualifiers: Hypertension type: essential hypertension Qualified Code(s): I10 - Essential (primary) hypertension (15) Diabetes: Qualifiers: Diabetes mellitus type: type 2 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 Continue Lasix 40 IV daily ? Check echocardiogram ? Interrogate AICD ? Patient given vancomycin and cefepime in ER for suspicion of pneumonia. I will continue at this time ? Dexamethasone 10x1 given in ER. I will hold off on further steroids at this time ? Check blood cultures, 6-hour troponin pending at this time ? Continue DuoNeb every 6 hours as needed Continue amiodarone, budesonide inhaled, Coreg ? Continue fenofibrate, omeprazole, rosuvastatin, Entresto, spironolactone. Hold glipizide, metformin ? Sliding scale insulin moderate dose intensity ? Cardiac diet -Place in cardiac telemetry ? Recheck lactic acid, ABG in a.m. ? WBC 24,000, elevated lactic acid, pneumonia not completely ruled out. I would probably cover with antibiotics for now and de-escalate as clinical status warra nted ? Check procalcitonin, sputum Gram stain culture ? EKG shows paced rhythm -Check bacterial antigens for strep and Legionella, MRSA nares swab ? Check respiratory viral panel ? Consider cardiology consult ? Check echocardiogram for any changes compared to prior. 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 Telehealth technology used during the visit includes video and audio. This patient encounter is appropriate and reasonable under the circumstances given the patient?s particular presentation at this time. The patient has been advised of the potential risks and limitations of this mode of treatment (including but not limited to the absence of in-person examination at this time) and has agreed to be treated by an off-site physician for this visit. If deemed clinically necessary from this telehealth visit, or if condition or consent for telehealth visit changes, an in-person visit will be arranged. For this encounter, total time for the origination of telehealth care on this date is as shown. Diagnoses Flash pulmonary edema J81.0 Acute hypoxemic respiratory failure J96.01 Acidosis, lactic E87.20 Leukocytosis D72.829 Pneumonia J18.9 GERD (gastroesophageal reflux disease) K21.9 ALBERTO (obstructive sleep apnea) G47.33 ICD (implantable cardioverter-defibrillator), dual, in situ Z95.810 Diabetic peripheral neuropathy associated with type 2 diabetes mellitus E11.42 Osteoarthritis of hands, bilateral M19.041; M19.042 COPD (chronic obstructive pulmonary disease) J44.9 Cardiomyopathy I42.0 Cardiomyopathy type: dilated Mixed hyperlipidemia E78.2 Hypertension I10 Hypertension type: essential hypertension Diabetes E11.65 Diabetes mellitus type: type 2 Diabetes mellitus custodial insulin use: without equipment operator intermodal yard use Diabetes mellitus complication status: with hyperglycemia Bipolar II disorder F31.81
--- NOTE | 2023-04-07 03:22 | ECG_ITS ---
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 Measurements Intervals [place] Rate: 138 P: 243 WA: 86 QRS: 23 QRSD: 198 T: 61 QT: 331 QTc: 503 Interpretive Statements JUNCTIONAL TACHYCARDIA INTRAVENTRICULAR CONDUCTION DELAY [130+ ms QRS DURATION] MARKED ST ELEVATION, CONSIDER ANTERIOR INJURY [MARKED ST ELEVATION W/O NORMALLY INFLECTED T-WAVE IN V2-V5] ACUTE [place] Compared to ECG 01/04/2023 13:06:29 Junctional tachycardia now present Intraventricular conduction delay now present ST (T wave) deviation now present Myocardial infarct finding now present Atrial-paced complex(es) or rhythm no longer present Ventricular-paced complex(es) or rhythm no longer present Electronically Signed On 04-08-2023 8:34:35 CDT by Reese Andrew M.D. [email or web address] [id number]
--- NOTE | 2023-04-07 03:23 | USCV_ITS ---
Amrik Alexander Age: 62 Gender: M : 1960 Exam Date: 04/07/2023 06:37 Ordering Phys: Krystle Levy MD Technologist: Rafi Limon Exam Location: [facility] [place] Indication: flash pulm edema BP: 125 / 74 HR: 56 Rhythm: Sinus Technical Quality: MEASUREMENTS (Male / Female) Normal Values 2D ECHO LVOT Diameter 2.0 cm LV Ejection Fraction MOD 2C 25.0 % LV Ejection Fraction 2C AL 24.8 % LA Diameter 4.3 cm LA Width 4.3 cm LA Height 5.8 cm RA Width 4.0 cm RA Height 4.0 cm Aorta at Sinotubular Diameter 2.6 cm IVC Diameter 1.8 cm M-MODE Aortic Annulus Diameter 3.4 cm LA Ao Ratio MM 1.3 MV E Point Septal Separation 2.1 cm DOPPLER AV Peak Velocity 118.0 cm/s LVOT Peak Velocity 54.0 cm/s AV Area Cont Eq vti 1.4 cm squared AV Area Cont Eq pk 1.5 cm squared MV Peak Velocity 106.0 cm/s MV Area PHT 5.8 cm squared Mitral E to A Ratio 2.4 MV E' Velocity 44.5 cm/s Mitral E to MV E' Ratio 16.0 Mitral E to LV E' Lateral Ratio 13.2 Mitral E to LV E' Septal Ratio 20.8 TR Peak Velocity 362.6 cm/s TR Peak Gradient 52.6 mmHg TR Mean Velocity 255.6 cm/s TR Mean Gradient 29.4 mmHg TR Velocity Time Integral 100.3 cm Right Atrial Pressure 3.0 mmHg Pulmonary Artery Systolic Pressu 55.6 mmHg PV Peak Velocity 92.3 cm/s RV Acceleration Time 0.1 s RV Ejection Time 0.2 s RV AcT/ET 0.5 FINDINGS Left Ventricle Enalrged left ventricular size, moderate to severe LV systolic dysfunction and wall thickness, with global regional wall motion abnormalities. Normal left ventricular wall thickness. EF 15-20 % Right Ventricle The right ventricle is normal in size and function.catheter/pacemaker wire visualized in the right ventricle. Right Atrium The right atrium is normal in size. Left Atrium The left atrium is mildly dilated Mitral Valve Structurally normal mitral valve without significant stenosis or prolapse. There is no mitral regurgitation. Mildly thickened mitral valve. Mitral annular calcification. Mitral valve not well visualized. Aortic Valve There is no aortic regurgitation. Mild aortic valve calcification. Aortic valve not well visualized. Mild aortic valve stenosis. Tricuspid Valve Structurally normal tricuspid valve without significant stenosis or regurgitation. Pulmonary artery systolic pressure is elevated at 55 , suggestive of severe pulmonary htn. Tricuspid valve not well visualized. Pulmonic Valve Structurally normal pulmonic valve without significant stenosis. There is no pulmonic regurgitation. Pulmonic valve not well visualized. Pericardium Normal pericardium without effusion. Aorta Normal ascending aorta dimension. IVC The inferior vena cava appears normal. CONCLUSIONS Enalrged left ventricular size, moderate to severe LV systolic dysfunction and wall thickness, with global regional wall motion abnormalities. Normal left ventricular wall thickness. EF 15-20 % Structurally normal tricuspid valve without significant stenosis or regurgitation. Pulmonary artery systolic pressure is elevated at 55 , suggestive of severe pulmonary htn. Tricuspid valve not well visualized. Pacer wire in RV noted Technically limited study. There is no pericardial effusion. Jimena Toth MD (Electronically Signed) Final Date: 07 Apr 2023 13:36 Amended: 07 Apr 2023 13:48 C
[2023-04-07] MEDS: heparin 5,000 unit/mL INJ 1 mL 5000 UNIT SUBCUT ×2 (03:53→15:54)
[2023-04-07 03:56] LABS: Basophils % 0.1 %; Hematocrit 44.3 % (42.0-52.0); Hemoglobin 14.7 g/dL (11.7-16.6); Lymphocytes # 0.9 10^3/uL (0.8-4.8); Mean Corpuscular HGB Conc 33.2 g/dL (30.0-36.0); Mean Corpuscular Hemoglobin 30.8 pg (28.0-34.0); Mean Corpuscular Volume 92.7 fl (80-94); Mean Platelet Volume 11.5 fL (7.4-10.4); Monocytes # 0.2 10^3/uL (0.2-0.9); Monocytes % 1.4 %; Neutrophils # 13.23 10^3/uL (1.8-7.7); Neutrophils % 91.9 %; Nucleated Red Blood Cells % 0 %; Platelet Count 200 10^3/cmm (130-400); Red Blood Count 4.78 10^6/uL (4.1-5.3); Red Cell Distribution Width 13.4 % (12.1-15.1); White Blood Count 14.4 10^3/uL (4.0-10.0)
[2023-04-07 04:17] LABS: Lactic Sepsis W/Reflex 2.8 mmol/L (0.5-2.2)
[2023-04-07 04:18] LABS: Troponin 5 6HR 37.84 ng/L (0-15)
[2023-04-07 04:19] LABS: Troponin 5 6HR Delta 7.84 ng/L (0-12)
[2023-04-07 04:20] LABS: Anion Gap 18.5 (5-19); Blood Urea Nitrogen 22 mg/dL (8-23); Carbon Dioxide 19 mmol/L (22-29); Chloride 101 mmol/L (98-107); Glomerular Filtration Rate 85.5 mL/min (90-130); Glucose 278 mg/dL (65-115); Osmolality Calculated 289 mOsm/kg (285-295); Potassium 5.5 mmol/L (3.5-5.1); Sodium 133 mmol/L (136-145)
[2023-04-07 04:27] LABS: Procalcitonin 0.19 ng/mL (0-0.5)
--- NOTE | 2023-04-07 04:32 | ECG_ITS ---
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 Measurements Intervals [place] Rate: 70 P: 93 IA: 182 QRS: 209 QRSD: 191 T: 40 QT: 480 QTc: 519 Interpretive Statements ELECTRONIC ATRIAL PACEMAKER ELECTRONIC VENTRICULAR PACEMAKER ABNORMAL RHYTHM ECG Compared to ECG 04/06/2023 23:09:09 No significant changes Electronically Signed On 04-08-2023 8:34:05 CDT by Reese Andrew M.D. [id number]
--- NOTE | 2023-04-07 04:41 | PC.NURSE ---
K+ 5.5: Contacted Dr. Levy about increased K+. New order for 12 lead EKG, Calcium Gluconate 1mg IVP ONCE, repeat BMP @0500, and to hold entresto.
[2023-04-07] MEDS: iohexol 350 mg/mL 500 mL Btl (per mL) IV (04:44)
[2023-04-07] MEDS: calcium gluconate 0.1 gm/mL 10% SDV 10mL 1 GM IVP (05:01)
[2023-04-07 05:41] LABS: Reflex Lactate Order REFLEX LACTIC ORDERD
[2023-04-07 06:28] LABS: Blood Urea Nitrogen 22 mg/dL (8-23); Calcium 9.5 mg/dL (8.5-10.5); Carbon Dioxide 21 mmol/L (22-29); Chloride 100 mmol/L (98-107); Glomerular Filtration Rate 85.5 mL/min (90-130); Glucose 278 mg/dL (65-115); Osmolality Calculated 287 mOsm/kg (285-295); Sodium 132 mmol/L (136-145)
[2023-04-07] MEDS: perflutren protein-a microsphr 0.22 mg/mL SDV 3 mL IV (07:30)
[2023-04-07] MEDS: budesonide 0.5 mg/2 mL Neb INHALATION ×2 (07:37→20:56)
[2023-04-07] MEDS: ipratropium-albuterol 3 mL Neb INHALATION ×2 (07:37→20:56)
[2023-04-07 07:55] LABS: Glucose Point of Care 264 mg/dL (70-110)
[2023-04-07] MEDS: amiodarone 200 mg Tablet 400 MG PO (08:15)
[2023-04-07] MEDS: carvedilol 25 mg Tablet PO ×2 (08:15→17:45)
[2023-04-07] MEDS: allopurinol 300 mg Tablet PO (08:15)
[2023-04-07] MEDS: sertraline 100 mg Tablet PO (08:15)
[2023-04-07] MEDS: atorvastatin 40 mg Tablet PO (08:16)
[2023-04-07] MEDS: insulin lispro 100 unit/1 mL SUBCUT ×4 (08:16→20:31)
[2023-04-07] MEDS: pantoprazole DR 40 mg Tablet PO (08:16)
[2023-04-07] MEDS: magnesium lactate 84 mg Tablet PO (08:16)
--- NOTE | 2023-04-07 10:05 | PM.PN ---
Subjective Subjective: He feels better. He was seen he came in. Denies chest pain or pressure. Denies fever, chills, cough, headache, nausea vomiting or diarrhea. Vitals/I&O/Wt Last Vital Signs Temp 97.7 F 04/07/23 05:00 Pulse 70 04/07/23 08:00 Resp 20 H 04/07/23 08:00 BP 102/48 04/07/23 08:00 Pulse Ox 96 04/07/23 08:00 O2 Del Method BiPAP 04/07/23 08:00 O2 Flow Rate 3 04/07/23 02:30 FiO2 40 04/07/23 08:00 04/06/23 04/07/23 04/07/23 22:59 06:59 14:59 Intake Total 450 / 450 240 / 240 Output Total 425 / 425 400 / 400 Balance 25 / -160 / -160 Weight last 48 hrs Weight 115.258 kg Weight 115.258 kg Weight 72.575 kg Weight 117.934 kg Physical Exam Const: GENERAL APPEARANCE: cooperative ORIENTATION/CONSCIOUSNESS: Yes awake HENMT: COMMON NORMALS: oropharynx normal Neck/C-Spine: OTHER: Thick neck, unable to assess for JVD. Resp: COMMON NORMALS: normal respiratory effort and clear to auscultation bilaterally AUSCULTATION: clear to auscultation bilaterally Cardio: COMMON NORMALS: regular rhythm, S1 normal heart sound present, S2 normal heart sound present and No murmurs present (Cardio) RHYTHM: regular rhythm HEART SOUNDS: S1 normal heart sound present and S2 normal heart sound present GI: COMMON NORMALS: Normal to inspection, nondistended, normoactive bowel sounds present, Soft to palpation and non-tender PALPATION: Yes Soft to palpation Extremity: COMMON NORMALS: no pedal edema Data 04/07/23 03:46 04/07/23 05:55 Micro: Microbiology 04/07/23 05:13 Legionella Urinary Antigen - Final Urine,Voided Bacterial Antigens - Final 04/06/23 23:23 Blood Culture - Preliminary Blood SPECIMEN COLLECTED 04/06/23 23:23 Blood Culture - Preliminary Blood SPECIMEN COLLECTED A&P Assessment and plan (1) Flash pulmonary edema: (2) Acute hypoxemic respiratory failure: (3) Acidosis, lactic: (4) Leukocytosis: (5) Pneumonia: (6) GERD (gastroesophageal reflux disease): (7) ALBERTO (obstructive sleep apnea): (8) ICD (implantable cardioverter-defibrillator), dual, in situ: (9) Diabetic peripheral neuropathy associated with type 2 diabetes mellitus: (10) Osteoarthritis of hands, bilateral: (11) COPD (chronic obstructive pulmonary disease): (12) Cardiomyopathy: Qualifiers: Cardiomyopathy type: dilated Qualified Code(s): I42.0 - Dilated cardiomyopathy (13) Mixed hyperlipidemia: (14) Hypertension: Qualifiers: Hypertension type: essential hypertension Qualified Code(s): I10 - Essential (primary) hypertension (15) Diabetes: Qualifiers: Diabetes mellitus type: type 2 Diabetes 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 Weaned down to nasal cannula this morning. Feeling better overall compared to presentation. Denies chest pain or pressure. Neutral to slightly negative balance, -135 mL after receiving Lasix. Pending echocardiogram. History of severely reduced ejection fraction. Troponin series without significant rise, although mild elevation from baseline 30 up to 37.84 at 6 hours. Repeat another troponin in the morning. Monitor on telemetry. May benefit from continued cautious diuresis. Monitor renal function. Will reassess volume status. If continues to improve may be able to move out of ICU to CCU. AICD interrogation. We will need to confirm with him whether he has been adherent with CPAP as he does have history of ALBERTO, possibly contributing to his pulmonary edema episode. With diuresis follow-up chemistry BMP. Follow-up CBC. Suspicion for bacterial pneumonia is low, has been continued on antibiotics for now. Recheck procalcitonin in the morning. Requested a viral respiratory panel Follow-up blood culture. Lactic acidosis: Unclear cause. Follow-up cardiac studies. Otherwise does not present as sepsis/septic shock, but continue empiric antibiotics for now. Follow blood culture. Liver appears unremarkable on CT. Obtain UA. Questionable metformin induced lactic acidosis. Follow-up lactic acid level requested. ? Continue DuoNeb every 6 hours as needed Continue amiodarone, budesonide inhaled, Coreg ? Continue fenofibrate, omeprazole, rosuvastatin, Entresto, spironolactone. Hold glipizide, metformin ? Sliding scale insulin moderate dose intensity ? Cardiac diet -cardiac telemetry -Noted negative bacterial antigens panel and Legionella antigen Full code SCDs, heparin SQ twice daily for DVT prophylaxis Attestations Medical Necessity Statement*: Continue admission for assessment management of acute respiratory failure, pulm edema, acute chronic combined CHF, lactic acidosis. Diagnoses Flash pulmonary edema J81.0 Acute hypoxemic respiratory failure J96.01 Acidosis, lactic E87.20 Leukocytosis D72.829 Pneumonia J18.9 GERD (gastroesophageal reflux disease) K21.9 ALBERTO (obstructive sleep apnea) G47.33 ICD (implantable cardioverter-defibrillator), dual, in situ Z95.810 Diabetic peripheral neuropathy associated with type 2 diabetes mellitus E11.42 Osteoarthritis of hands, bilateral M19.041; M19.042 COPD (chronic obstructive pulmonary disease) J44.9 Cardiomyopathy I42.0 Cardiomyopathy type: dilated Mixed hyperlipidemia E78.2 Hypertension I10 Hypertension type: essential hypertension Diabetes E11.65 Diabetes mellitus type: type 2 Diabetes mellitus termite 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
[2023-04-07 11:26] LABS: Glucose Point of Care 289 mg/dL (70-110)
[2023-04-07 12:11] LABS: Adenovirus Not Detected (NOT DETECT); Chlamydia Pneumoniae Not Detected (NOT DETECT); Coronavirus 229E,HKU1,NL63,OC4 Not Detected (NOT DETECT); Human Metapneumovirus Not Detected (NOT DETECT); Human Rhinovirus/Enterovirus Not Detected (NOT DETECT); Influenza A Not Detected (NOT DETECT); Influenza A H1 Not Detected (NOT DETECT); Influenza A H1-2009 Not Detected (NOT DETECT); Influenza A H3 Not Detected (NOT DETECT); Influenza B Not Detected (NOT DETECT); Mycoplasma Pneumoniae Not Detected (NOT DETECT); Parainfluenza Virus Type 1 Not Detected (NOT DETECT); Parainfluenza Virus Type 2 Not Detected (NOT DETECT); Parainfluenza Virus Type 3 Not Detected (NOT DETECT); Parainfluenza Virus Type 4 Not Detected (NOT DETECT); Respiratory Syncytial Virus A Not Detected (NOT DETECT); Respiratory Syncytial Virus B Not Detected (NOT DETECT); SARS-COV-2 Not Detected (NOT DETECT)
[2023-04-07 13:37] LABS: Add Urine Microscopic? NO; Charge for UA Resulting for Rev
[2023-04-07 13:50] LABS: Bilirubin Urine Neg (Negative); Blood Urine Neg (Negative); Glucose Urine UA 4+ (Normal); Ketones Urine 1+ (Negative); Leukocyte Esterase Urine Negative (Negative); Nitrate Urine Negative (Negative); Protein Urine Neg (Negative); Specific Gravity, Urine 1.005 (1.005-1.030); Urine Appearance Clear (CLEAR); Urine Color Yellow (Yellow); Urobilinogen Urine Norm (Negative); pH Urine 5 (5-7)
[2023-04-07] MEDS: FUROsemide 10 mg/mL SDV 4mL 40 MG IVP (15:54)
[2023-04-07 17:43] LABS: Glucose Point of Care 236 mg/dL (70-110)
[2023-04-07] MEDS: vancomycin 1,250 MG/250 ML PIGGYBACK 250 MG IV (17:45)
[2023-04-07 20:31] LABS: Glucose Point of Care 313 mg/dL (70-110)
[2023-04-08] VITALS (18 sets, daily range): BP systolic 100–144; BP diastolic 60–96; PULSE 70–87; RESP 14–25; O2SAT 93–98
[2023-04-08] MEDS: heparin 5,000 unit/mL INJ 1 mL 5000 UNIT SUBCUT (03:13)
[2023-04-08] MEDS: FUROsemide 10 mg/mL SDV 4mL 40 MG IVP (03:13)
[2023-04-08 03:50] LABS: Basophils % 0.1 %; Hemoglobin 14.5 g/dL (11.7-16.6); Lymphocytes # 1.8 10^3/uL (0.8-4.8); Lymphocytes % 9.7 %; Mean Corpuscular HGB Conc 34.5 g/dL (30.0-36.0); Mean Corpuscular Hemoglobin 31.6 pg (28.0-34.0); Mean Corpuscular Volume 91.5 fl (80-94); Mean Platelet Volume 11.8 fL (7.4-10.4); Monocytes % 5.7 %; Neutrophils # 15.12 10^3/uL (1.8-7.7); Neutrophils % 83.8 %; Nucleated Red Blood Cells % 0 %; Platelet Count 206 10^3/cmm (130-400); Red Blood Count 4.59 10^6/uL (4.1-5.3); Red Cell Distribution Width 13.4 % (12.1-15.1)
[2023-04-08 04:09] LABS: Troponin T (5th) Once 24 ng/L (0-15)
[2023-04-08 04:13] LABS: Lactate (Lactic Acid level) 1.5 mmol/L (0.5-2.2)
[2023-04-08 04:17] LABS: Anion Gap 16.3 (5-19); Blood Urea Nitrogen 26 mg/dL (8-23); Calcium 9.3 mg/dL (8.5-10.5); Carbon Dioxide 23 mmol/L (22-29); Chloride 101 mmol/L (98-107); Glomerular Filtration Rate 114.3 mL/min (90-130); Glucose 203 mg/dL (65-115); Osmolality Calculated 293 mOsm/kg (285-295); Potassium 4.3 mmol/L (3.5-5.1); Sodium 136 mmol/L (136-145)
[2023-04-08 04:20] LABS: Procalcitonin 0.21 ng/mL (0-0.5)
[2023-04-08 08:07] LABS: Glucose Point of Care 232 mg/dL (70-110)
[2023-04-08] MEDS: carvedilol 25 mg Tablet PO (08:11)
[2023-04-08] MEDS: magnesium lactate 84 mg Tablet PO (08:11)
[2023-04-08] MEDS: sertraline 100 mg Tablet PO (08:11)
[2023-04-08] MEDS: atorvastatin 40 mg Tablet PO (08:11)
[2023-04-08] MEDS: insulin lispro 100 unit/1 mL SUBCUT ×2 (08:11→12:00)
[2023-04-08] MEDS: amiodarone 200 mg Tablet 400 MG PO (08:11)
[2023-04-08] MEDS: pantoprazole DR 40 mg Tablet PO (08:11)
[2023-04-08] MEDS: allopurinol 300 mg Tablet PO (08:11)
--- NOTE | 2023-04-08 09:24 | PC.NURSE ---
[employer] contacted about interrogation.
[2023-04-08] MEDS: levofloxacin-dextrose 5 % 750 MG/150 ML PREMIX 100 MG IV (09:58)
--- NOTE | 2023-04-08 11:21 | PC.PHAR ---
Addendum entered by Edd Hoskins 04/08/23 11:22: new expected trough 15.3 based on population standards Original Note: Vancomycin DOSE CHANGED BASED ON RENAL FUNCTION IMPROVING... new dose: 1500MG Q12H and TROUGH TO BE DRAWN 04-09 @ 9837
[2023-04-08 11:55] LABS: Glucose Point of Care 314 mg/dL (70-110)
[2023-04-08] MEDS: vancomycin 1,500 MG/300 ML PIGGYBACK 200 MG IV (12:00)
--- NOTE | 2023-04-08 16:51 | PC.NURSE ---
All discharge instructions gone over with patient. Medications sent to pharmacy and all questions answered. Pt was discharged via wheelchair at 1630.
--- NOTE | 2023-04-08 20:42 | P.DS_ITS ---
Discharge Providers Date of Admission: 04/07/23 01:37 Date of Discharge: April 08, 2023 Attending Provider at Admission: Krystle Levy MD Attending Provider at Discharge: Elijah Renee Primary Care Provider: ANDRES Pettit Diagnoses at Discharge Discharge Diagnosis (1) Flash pulmonary edema: Status: Acute (2) Acute hypoxemic respiratory failure: Status: Acute (3) Acidosis, lactic: Status: Acute (4) Leukocytosis: Status: Acute (5) Pneumonia: Status: Acute (6) GERD (gastroesophageal reflux disease): Status: Acute (7) ALBERTO (obstructive sleep apnea): Status: Acute (8) ICD (implantable cardioverter-defibrillator), dual, in situ: Status: Acute (9) Diabetic peripheral neuropathy associated with type 2 diabetes mellitus: Status: Acute (10) Osteoarthritis of hands, bilateral: Status: Acute (11) COPD (chronic obstructive pulmonary disease): Status: Acute (12) Cardiomyopathy: Status: Acute Qualifiers: Cardiomyopathy type: dilated Qualified Code(s): I42.0 - Dilated cardiomyopathy (13) Mixed hyperlipidemia: Status: Acute (14) Hypertension: Status: Acute Qualifiers: Hypertension type: essential hypertension Qualified Code(s): I10 - Essential (primary) hypertension (15) Diabetes: Status: Acute Qualifiers: Diabetes mellitus type: type 2 Diabetes mellitus grated cheese maker insulin use: without intermediate use Diabetes mellitus complication status: with hyperglycemia Qualified Code(s): E11.65 - Type 2 diabetes mellitus with hyperglycemia (16) Bipolar II disorder: Status: Acute Reason for Visit Reason for Visit: SOB Hospital Course Hospital Course 62-year-old gentleman with history of nonischemic cardiomyopathy with low EF, CHF, AICD, 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 Mild troponin elevation on cardiac series. Has remained chest pain-free. Initially received cefepime and vancomycin for possibility of pneumonia, although did not have cough, sputum production, however, with noted leukocytosis, antibiotic course for now was continued. Assessment with echocardiogram revealed worsened ejection fraction compared to prior, currently down to 15-20%. 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 His condition improved with diuresis with Lasix IV, blood pressure soft but tolerated diuresis. He states that he religiously wears his CPAP anytime he sleeps or naps for ALBERTO. Symptom found likely secondary to CHF decompensation and with noted worsening ejection fraction. Discussion with cardiology recommendation for volume status optimization, he received additional diuretic treatment and overall condition continued to improve, weaned off not only BiPAP but oxygen support entirely. Feeling much better. Today insistent on discharging home. Discussed with him follow-up with cardiology, discussed still elevated WBC count 18,000. He is agreeable to continue oral antibiotics with Levaquin at discharge. Please follow-up for continued recovery. He is asked to follow-up with cardiology. Discussed with him unfortunately with degree of ejection fraction decrease he is at risk of additional complications with CHF, readmission as well as sudden cardiac . He understands. On presentation also with noted lactic acidosis, lower possibility of metformin induced lactic acidosis, this is discontinued, he continues on Trulicity, he started on dapagliflozin given diabetes and CHF. Physical Exam Const: COMMON NORMALS: patient oriented x3 and alert GENERAL APPEARANCE: cooperative ORIENTATION/CONSCIOUSNESS: Yes awake OTHER: Sitting up in chair, in good spirits. Pleasant, conversant. HENMT: COMMON NORMALS: oropharynx normal Neck/C-Spine: COMMON NORMALS: no JVD Resp: COMMON NORMALS: normal respiratory effort and clear to auscultation bilaterally AUSCULTATION: clear to auscultation bilaterally Cardio: COMMON NORMALS: no JVD, regular rhythm, S1 normal heart sound present, S2 normal heart sound present and No murmurs present (Cardio) RHYTHM: regular rhythm HEART SOUNDS: S1 normal heart sound present and S2 normal heart sound present GI: COMMON NORMALS: Normal to inspection, nondistended, normoactive bowel sounds present, Soft to palpation and non-tender PALPATION: Yes Soft to palpation Extremity: COMMON NORMALS: no joint enlargement and no pedal edema Neuro: COMMON NORMALS: patient oriented x3 and moves all extremities SENSORIUM/ORIENTATION: Yes alert Skin: COMMON NORMALS: no rashes or lesions noted GENERAL SKIN EXAM: no rashes or lesions noted Discharge Data Studies Completed and Pending Completed Studies During Hospitalization Category Date Time Status CTA chest CT abdomen pelvis [CT angio chest w abd pel w Cat Scan 04/06/23 22:07 Completed con] Stat XR chest 1V portable [id number] Stat Exams 04/06/23 21:22 Completed CV. echo wo/w contrast [id number] Routine Ultrasound 04/07/23 03:23 Completed Pending at discharge Category Date Time Status Blood Culture Stat Lab 04/06/23 23:23 Results Radiology Impressions Chest X-Ray 04/06/23 21:22 IMPRESSION: 1. Cardiomegaly. 2. Interstitial edema and pulmonary vascular congestion. 3. Patchy bilateral ground-glass airspace opacities reflecting alveolar edema and/or pneumonic infiltrates. 4. Right-sided pacemaker. Chest/Abdomen/Pelvis CT 04/06/23 22:07 IMPRESSION: 1. Negative for pulmonary embolus. 2. Small bilateral pleural effusions. 3. Cardiomegaly. 4. Coronary artery atherosclerotic calcifications. 5. Patchy bilateral airspace infiltrates. IMPRESSION: No acute findings. Laboratory Results WBC 18.0 10^3/uL (4.0-10.0) H 04/08/23 02:36 RBC 4.59 10^6/uL (4.1-5.3) 04/08/23 02:36 Hgb 14.5 g/dL (11.7-16.6) 04/08/23 02:36 Hct 42.0 % (42.0-52.0) 04/08/23 02:36 MCV 91.5 fl (80-94) 04/08/23 02:36 MCH 31.6 pg (28.0-34.0) 04/08/23 02:36 MCHC 34.5 g/dL (30.0-36.0) 04/08/23 02:36 RDW 13.4 % (12.1-15.1) 04/08/23 02:36 Plt Count 206 10^3/cmm (130-400) 04/08/23 02:36 MPV 11.8 fL (7.4-10.4) H 04/08/23 02:36 Neut % (Auto) 83.8 % 04/08/23 02:36 Lymph % (Auto) 9.7 % 04/08/23 02:36 Falls % (Auto) 5.7 % 04/08/23 02:36 Eos % (Auto) 0.0 % 04/08/23 02:36 Baso % (Auto) 0.1 % 04/08/23 02:36 Neut # (Auto) 15.12 10^3/uL (1.8-7.7) H 04/08/23 02:36 Lymph # (Auto) 1.8 10^3/uL (0.8-4.8) 04/08/23 02:36 Falls # (Auto) 1.0 10^3/uL (0.2-0.9) H 04/08/23 02:36 Eos # (Auto) 0.0 10^3/uL (0.0-0.8) 04/08/23 02:36 Baso # (Auto) 0.0 10^3/uL (0.0-0.1) 04/08/23 02:36 Nucleated RBC % (auto) 0 % 04/08/23 02:36 Total Counted 100 (0-100) 04/06/23 21:25 Atypical Lymphs % 0.0 % (0-5) 04/06/23 21: Absolute Neutrophils 13.6 10^3/cmm (1.4-6.5) H 04/06/23 21:25 Segmented Neutrophils 56 % 04/06/23 21:25 Abs Segm Neuts (Man) 13.6 10/cmm (1.6-7.1) H 04/06/23 21:25 Band Neutrophils 0.0 % 04/06/23 21: Abs Band Neuts (Man) 0.0 10^3/cmm (0.0-1.2) 04/06/23 21:25 Absolute Lymphocytes 9.5 10^3/cmm (1.2-3.4) H 04/06/23 21:25 Lymphocytes (Manual) 39 % 04/06/23 21:25 Monocytes (Manual) 5.0 % 04/06/23 21: Absolute Monocytes 1.2 10^3/cmm (0.1-0.6) H 04/06/23 21:25 Eosinophils (Manual) 0 % 04/06/23 21: Absolute Eosinophils 0.0 10^3/cmm (0.0-0.7) 04/06/23 21:25 Basophils (Manual) 0.0 % 04/06/23 21:25 Absolute Basophils 0.0 10^3/cmm (0.0-0.2) 04/06/23 21:25 Nucleated RBCs # 0.0 /100WBC 04/08/23 02:36 Platelet Estimate Normal (Normal) 04/06/23 21:25 Specimen Type Arterial 04/06/23 21:25 Sample Site Radial, right 04/06/23 21:25 ABG pH 7.17 (7.35-7.45) L* 04/06/23 21:25 ABG pCO2 43.9 mmHg (35-45) 04/06/23 21:25 ABG pO2 281.0 mmHg (80.0-100.0) H 04/06/23 21:25 ABG HCO3 16.1 mmol/L (22-26) L 04/06/23 21:25 ABG Base Excess -12.1 mmol/L (-2.0-2.0) L 04/06/23 21:25 Oral Test Pos 04/06/23 21:25 Hematocrit 50.3 % (42-52) 04/06/23 21:25 Hgb O2 Saturation 99.0 % (95-100) 04/06/23 21:25 Carboxyhemoglobin 0.8 %THgb (0.4-20.1) 04/06/23 21:25 Methemoglobin 0.5 % (0.4-1.5) 04/06/23 21:25 Total Hemoglobin 16.4 g/dL (14-18) 04/06/23 21:25 O2 Delivery Device Bipap 04/06/23 21:25 FiO2 100.0 % 04/06/23 21:25 Web Development Director ID Alewe 04/06/23 21:25 Sodium 136 mmol/L (136-145) 04/08/23 02:36 Potassium 4.3 mmol/L (3.5-5.1) 04/08/23 02:36 Chloride 101 mmol/L (98-107) 04/08/23 02:36 Carbon Dioxide 23 mmol/L (22-29) 04/08/23 02:36 Anion Gap 16.3 (5-19) 04/08/23 02:36 BUN 26 mg/dL (8-23) H 04/08/23 02:36 Creatinine 0.7 mg/dL (0.7-1.2) 04/08/23 02:36 GFR Calculation 114.3 mL/min (90-130) 04/08/23 02:36 Glucose 203 mg/dL (65-115) H 04/08/23 02:36 POC Glucose 314 mg/dL (70-110) H 04/08/23 11:53 Calculated Osmolality 293 mOsm/kg (285-295) 04/08/23 02:36 Lactic Acid 2.8 mmol/L (0.5-2.2) H 04/07/23 03:46 Lactic Acid (Sepsis) 3.0 mmol/L (0.5-2.2) H 04/07/23 05:55 Lactate 1.5 mmol/L (0.5-2.2) 04/08/23 02:36 Calcium 9.3 mg/dL (8.5-10.5) 04/08/23 02:36 Total Bilirubin 0.3 mg/dL (0.15-1.2) 04/06/23 21:25 AST 19 U/L (0-40) 04/06/23 21:25 ALT 31 U/L (0-41) 04/06/23 21:25 Alkaline Phosphatase 88 U/L (40-130) 04/06/23 21:25 Troponin T Gen 5 ng/L 24 ng/L (0-15) H 04/08/23 02:36 Troponin T Baseline 30 ng/L (0-15) H 04/06/23 21:25 Troponin T 120 Minute 31.68 ng/L (0-15) H 04/06/23 22:53 Delta Troponin T 1.68 ABS# (0-10) 04/06/23 22:53 Troponin T Hi Sens 6Hr 37.84 ng/L (0-15) H 04/07/23 03:46 Troponin T Hi Sens 6Hr Delta 7.84 ng/L (0-12) 04/07/23 03:46 NT-Pro-B Natriuret Pep 2894 pg/mL (0-125) H 04/06/23 21:25 Total Protein 7.3 g/dL (6.6-8.7) 04/06/23 21:25 Albumin 4.5 g/dL (3.5-5.2) 04/06/23 21:25 Globulin 2.8 g/dL (1.3-4.6) 04/06/23 21:25 Procalcitonin 0.21 ng/mL (0-0.5) 04/08/23 02:36 Urine Color Yellow (Yellow) 04/07/23 11:50 Urine Appearance Clear (CLEAR) 04/07/23 11:50 Urine pH 5 (5-7) 04/07/23 11:50 Ur Specific [place] 1.005 (1.005-1.030) 04/07/23 11:50 Urine Protein Neg (Negative) 04/07/23 11:50 Urine Glucose (UA) 4+ (Normal) H 04/07/23 11:50 Urine Ketones 1+ (Negative) H 04/07/23 11:50 Urine Blood Neg (Negative) 04/07/23 11:50 Urine Nitrate Negative (Negative) 04/07/23 11:50 Urine Bilirubin Neg (Negative) 04/07/23 11:50 Urine Urobilinogen Norm mg/dL (Negative) 04/07/23 11:50 Ur Leukocyte Esterase Negative (Negative) 04/07/23 11:50 Nasal Influ A H1 2009 PCR Not detected (NOT DETECT) 04/07/23 10:15 Adenovirus (PCR) Not detected (NOT DETECT) 04/07/23 10:15 C. pneumoniae DNA (PCR) Not detected (NOT DETECT) 04/07/23 10:15 Coronavirus 229E (PCR) Not detected (NOT DETECT) 04/07/23 10:15 Human Metapneumovir PCR Not detected (NOT DETECT) 04/07/23 10:15 Influenza A (H1) PCR Not detected (NOT DETECT) 04/07/23 10:15 Influenza A (H3) PCR Not detected (NOT DETECT) 04/07/23 10:15 Influenza Type A (PCR) Not detected (NOT DETECT) 04/07/23 10:15 Influenza Type B (PCR) Not detected (NOT DETECT) 04/07/23 10:15 M. pneumoniae (PCR) Not detected (NOT DETECT) 04/07/23 10:15 Parainfluenza 1 (PCR) Not detected (NOT DETECT) 04/07/23 10:15 Parainfluenza 2 (PCR) Not detected (NOT DETECT) 04/07/23 10:15 Parainfluenza 3 (PCR) Not detected (NOT DETECT) 04/07/23 10:15 Parainfluenza 4 (PCR) Not detected (NOT DETECT) 04/07/23 10:15 RSV Type A (PCR) Not detected (NOT DETECT) 04/07/23 10:15 RSV Type B (PCR) Not detected (NOT DETECT) 04/07/23 10:15 Entero/Rhino (PCR) Not detected (NOT DETECT) 04/07/23 10:15 SARS-CoV-2 (PCR) Not detected (NOT DETECT) 04/07/23 10:15 Vitals Last Vital Signs Temp 97.7 F 04/07/23 05:00 Pulse 70 04/08/23 15:00 Resp 17 04/08/23 15:00 BP 109/65 04/08/23 15:00 Pulse Ox 97 04/08/23 15:07 O2 Del Method BiPAP 04/07/23 20:56 O2 Flow Rate 2 04/07/23 16:30 FiO2 40 04/08/23 02:56 Discharge Plan Discharge Patient Disposition: Home Condition: Stable Prescriptions: New furosemide 20 mg tablet 20 mg PO QAM Qty: 30 0RF dapagliflozin 10 mg tablet 10 mg PO DAILY Qty: 90 0RF levofloxacin 750 mg tablet 750 mg PO DAILY 5 Days Qty: 5 0RF Continued aspirin [Aspir-Sagrario] 325 mg tablet,delayed release (DR/EC) 325 mg PO DAILY Hold Instructions: Resume on 12/08/21. spironolactone 25 mg tablet 12.5 mg PO DAILY Qty: 90 3RF (DME) Blood Glucose Test Strip See Rx Instructions .ROUTE .MEDSUPPLY Qty: 100 11RF Rx Instructions: Check blood sugar 2 x daily and prn (DME) lancets [BD Ultra Fine Lancets] 33 gauge misc See Rx Instructions .ROUTE .MEDSUPPLY Qty: 100 11RF Rx Instructions: check blood sugar twice daily and as needed sertraline 100 mg tablet 100 mg PO DAILY Qty: 30 2RF potassium citrate 10 mEq (1,080 mg) tablet extended release 20 meq PO BID Qty: 120 2RF albuterol sulfate [ProAir HFA] 90 mcg/actuation HFA aerosol inhaler 2 puff INHALATION Q6H PRN (Reason: shortness of breath or wheezing) Qty: 18 2RF budesonide-formoterol [Symbicort] 160-4.5 mcg/actuation HFA aerosol inhaler 2 puff inhalation BID Qty: 10.2 5RF Hold Instructions: try trelegy (DME) nebulizer machine with tubing and mask See Rx Instructions .Route .MEDSUPPLY Qty: 1 0RF Rx Instructions: As directed fluticasone propionate [Flonase Allergy Relief] 50 mcg/actuation spray,suspension 2 spray intranasal DAILY Qty: 16 5RF Rx Instructions: administer into each nostril albuterol sulfate 2.5 mg /3 mL (0.083 %) solution for nebulization 2.5 mg inhalation QID PRN (Reason: shortness of breath or wheezing) Qty: 180 5RF ondansetron HCl 4 mg tablet 4 mg PO QID PRN (Reason: nausea and vomiting) Qty: 30 0RF (DME) blood-glucose meter [Blood Glucose Monitoring] Kit See Rx Instructions .ROUTE .MEDSUPPLY Qty: 1 0RF Rx Instructions: As directed; to test 2 x day and prn allopurinol 300 mg tablet See Rx Instructions .ROUTE .COMPLEX Qty: 90 1RF Dose Instruction: Take 1 tablet by mouth once daily Rx Instructions: Take 1 tablet by mouth once daily carvedilol 25 mg tablet 25 mg PO BID Qty: 180 1RF magnesium L-lactate 84 mg tablet extended release 84 mg PO DAILY Qty: 90 2RF Trulicity 0.75 mg/0.5 mL pen injector See Rx Instructions .ROUTE .COMPLEX Qty: 4 0RF Dose Instruction: INJECT 0.75MG (0.5ML) SUBCUTANEOUSLY WEEKLY ON TUESDAYS Rx Instructions: INJECT 0.75MG (0.5ML) SUBCUTANEOUSLY WEEKLY ON TUESDAYS rosuvastatin 20 mg tablet See Rx Instructions .ROUTE .COMPLEX Qty: 90 1RF Dose Instruction: Take 1 tablet by mouth once daily Rx Instructions: Take 1 tablet by mouth once qpm omeprazole 40 mg capsule,delayed release(DR/EC) See Rx Instructions .ROUTE .COMPLEX Qty: 90 1RF Dose Instruction: Take 1 capsule by mouth once daily Rx Instructions: Take 1 capsule by mouth once daily Allergy Relief (cetirizine) 10 mg tablet See Rx Instructions .ROUTE .COMPLEX Qty: 90 1RF Dose Instruction: Take 1 tablet by mouth once daily Rx Instructions: Take 1 tablet by mouth once daily amiodarone 400 mg tablet 400 mg PO DAILY Qty: 65 0RF Rx Instructions: 400 mg TID for the first week, then 400 BID for the second week, then after that 400 daily sacubitril-valsartan 97-103 mg tablet 1 tab PO BID Qty: 180 3RF Men's 50 Plus Multivitamin 400-20-370 mcg Tablet 1 tab PO DAILY Discontinued metformin 500 mg tablet extended release 24 hr 2,000 mg PO DAILY Qty: 360 0RF Discharge Orders: Discharge Order (Routine); Ordered 04/08/23 Ordered By: Elijah Renee Referrals: Joe Holder MD [Physician] - 4-7 days Lucrecia Blandon FNP [Primary Care Provider] - 04/10/23 10:40 am Discharge Diet: Cardiac Patient Instructions: Levofloxacin (By mouth), Dapagliflozin (By mouth) (Farxiga), Heart Failure (GEN) Activity Restrictions/Additional Instructions: Follow-up with cardiology regarding cardiomyopathy and further decrease in ejection fraction down to 15-20%. Follow-up with your primary doctor for reassessment after respiratory failure, flash pulmonary edema. Lactic acidosis. These are suspected due to acute decompensation of congestive heart failure. Lactic acidosis is also suspected secondary to heart failure, but cannot entirely exclude lactic acidosis secondary to metformin. As such please do not continue this medication at this time. You are started also on dapagliflozin to help manage diabetes and in the setting of cardiovascular disease and heart failure. You are at risk of further decompensation of heart failure, other complications including organ injury, sudden cardiac . Discussed with cardiology regarding further options. Visit also with your primary doctor and cardiology regarding prognosis and goals of care considerations. Discuss with your family. You are given a course of empiric antibiotic with noted white blood cell count elevation, lower suspicion of pneumonia, but cannot entirely exclude. In case of return of shortness of breath, any episodes of fainting, chest pain or pressure, or any other concerning symptoms or feeling unwell, return to the hospital. Discharge Attestations Time Spent in Discharge Care*: greater than 30 min Status at Discharge: Cognitive status at discharge: cognitively intact , Behavioral status at discharge: cooperative , Quality Metrics Clinical Quality Measures [ No reported AMI, CVA or VTE this stay] Coding Level of Care Code 27683 Total time (in minutes) for Discharge: 35 Diagnoses Flash pulmonary edema J81.0 Acute hypoxemic respiratory failure J96.01 Acidosis, lactic E87.20 Leukocytosis D72.829 Pneumonia J18.9 GERD (gastroesophageal reflux disease) K21.9 ALBERTO (obstructive sleep apnea) G47.33 ICD (implantable cardioverter-defibrillator), dual, in situ Z95.810 Diabetic peripheral neuropathy associated with type 2 diabetes mellitus E11.42 Osteoarthritis of hands, bilateral M19.041; M19.042 COPD (chronic obstructive pulmonary disease) J44.9 Cardiomyopathy I42.0 Cardiomyopathy type: dilated Mixed hyperlipidemia E78.2 Hypertension I10 Hypertension type: essential hypertension Diabetes E11.65 Diabetes mellitus type: type 2 Diabetes mellitus intermediate insulin use: without grated cheese maker use Diabetes mellitus complication status: with hyperglycemia Bipolar II disorder F31.81
[2023-04-09 13:49] LABS: Methicillin-Resist S.aureu PCR NOT DETECTED (NOT DETECTED)
== END 2023-04-08 16:30 | disposition home or self-care (01) | DRG 291 ==
LOC: ER 23:30 → ICU 04-07 03:02
PROVIDERS: Admitting Provider Internal Medicine; Emergency Provider Emergency Medicine; PCP Nurse Practitioner Family; Visit Provider Internal Medicine
DX: I11.0 Hypertensive heart disease with heart failure (principal); I50.43 Acute on chronic combined systolic (congestive) and diastolic (congestive) heart failure; J96.01 Acute respiratory failure with hypoxia; J18.9 Pneumonia, unspecified organism; F31.81 Bipolar II disorder; E87.20 Acidosis, unspecified; J44.9 Chronic obstructive pulmonary disease, unspecified; Z45.02 Encounter for adjustment and management of automatic implantable cardiac defibrillator; I42.0 Dilated cardiomyopathy; E11.40 Type 2 diabetes mellitus with diabetic neuropathy, unspecified; E11.65 Type 2 diabetes mellitus with hyperglycemia; Z79.84 Long term (current) use of oral hypoglycemic drugs; K21.9 Gastro-esophageal reflux disease without esophagitis; E78.2 Mixed hyperlipidemia; G47.33 Obstructive sleep apnea (adult) (pediatric); Z99.89 Dependence on other enabling machines and devices; M19.042 Primary osteoarthritis, left hand; M19.041 Primary osteoarthritis, right hand; Z87.891 Personal history of nicotine dependence
CPT/HCPCS: 36415; 36416; 36600; 71045; 71275; 74177; 80048; 80053; 81003; 82805; 82962; 83605; 83880; 84145; 84484; 85007; 85025; 86403; 87040; 87449; 87486; 87581; 87633; 87641; 93005; 94640; 94660; 94760; 96365; 96372; 96375; 96376; 97161; 99291; C8929; J0612; J0692; J1100; J1644; J1815; J1940; J1956; J3370; J3372; J7613; J7626; Q9956; Q9967

== ENCOUNTER 2023-04-10 06:00 | Outpatient (RCR) | payer MEDICAID, SELFPAY | END 2023-05-09 23:59 | disposition home or self-care (01) | LOC: TPT 06:00 | PROVIDERS: PCP Nurse Practitioner Family; Visit Provider Orthopaedic Surgery | DX: M54.9 Dorsalgia, unspecified (principal); G89.29 Other chronic pain | CPT/HCPCS: 97110; 97164 ==

== ENCOUNTER → 2023-04-10 07:55 | Outpatient (BNVA) | payer MEDICAID, SELFPAY | PROVIDERS: PCP Nurse Practitioner Family; Visit Provider Internal Medicine Cardiovascular Disease | DX: Z45.02 Encounter for adjustment and management of automatic implantable cardiac defibrillator (principal) | CPT/HCPCS: 93296 ==

== ENCOUNTER → 2023-04-10 15:32 | Outpatient (BNVA) | payer MEDICAID, SELFPAY | PROVIDERS: PCP Nurse Practitioner Family; Visit Provider Nurse Practitioner Family | DX: M79.671 Pain in right foot (principal) | CPT/HCPCS: 73630; 80053; 85025 ==

== ENCOUNTER 2023-04-11 08:36 | Emergency (ER) | payer MEDICAID, SELFPAY ==
[2023-04-11] VITALS (10 sets, daily range): BP systolic 101–113; BP diastolic 70–79; PULSE 69–71; RESP 12–20; TEMP 36.6; O2SAT 93–98; BMI 41.1
--- NOTE | 2023-04-11 08:41 | XR_ITS ---
WS: [id number] Exam: XR chest 1V portable [id number] Date/Time of Exam: 04/11/2023 8:49 AM Reason For Exam: cp Comparison 04/06/2023. The lungs are fully inflated and clear. Mild cardiac enlargement unchanged. A permanent cardiac pacer superimposes the right chest. No pleural effusions. Bony structures are intact. The mediastinum is n ormal in contour. XR/XR chest 1V portable [id number] IMPRESSION: 1. Mild cardiac enlargement unchanged. No acute process.
--- NOTE | 2023-04-11 08:41 | ECG_ITS ---
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 Measurements Intervals [place] Rate: 72 P: 76 CO: 175 QRS: 211 QRSD: 177 T: 40 QT: 455 QTc: 498 Interpretive Statements ELECTRONIC ATRIAL PACEMAKER ELECTRONIC VENTRICULAR PACEMAKER ABNORMAL RHYTHM ECG Compared to ECG 04/07/2023 04:49:29 No significant changes Electronically Signed On 04-11-2023 10:04:55 CDT by Reese Andrew M.D. [id number]
--- NOTE | 2023-04-11 08:46 | W.ED.CHESTPA ---
HPI - Chest Pain General: Chief Complaint: Chest Pain Stated Complaint: Chest Pressure, back pain Time Seen by Provider: 04/11/23 08:41 Source: patient Mode of arrival: ambulatory Limitations: no limitations History of Present Illness: 62-year-old male who was recently admitted here for flash pulmonary edema he was discharged 2 days ago he states that she has had some chest pain he states it is a sharp pain in the center of his chest seems to be worse with palpation he states his breathing has been much improved he is in no distress here pulse ox 97% denies any cough denies any fever denies any vomiting or diarrhea. Associated symptoms: Deny abdominal pain, dyspnea, fever(s), nausea or vomiting Review of Systems Const: Denies: fever(s) or chills ENMT: Denies: throat pain or dental pain Card: Reports: chest pain Resp: Denies: dyspnea GI: Denies: abdominal pain, nausea, vomiting or diarrhea : Denies: dysuria Musc: Denies: neck pain or back pain Skin/Breast: Denies: rash Neuro: Denies: headache(s) PFSH ED PFSH: Medical History Bipolar II disorder C. difficile diarrhea Cardiac resynchronization therapy defibrillator (STOCKKEEPER-D) in place [employer] [address] [place], 07/11/2020 Cardiomyopathy Cataracts, bilateral CHF (congestive heart failure) Diabetes GERD (gastroesophageal reflux disease) Hemorrhoids Hypertension Mixed hyperlipidemia ALBERTO (obstructive sleep apnea) Osteoarthritis of hands, bilateral Pacemaker Psychiatric care Right ureteral calculus Urolithiasis Multi stone former, calcium oxalate mono and dihydrate. Also calcium phosphate. Multiple interventions including endoscopy with laser lithotripsy and ESWL. Metabolic treatment with potassium citrate Surgical History H/O esophagogastroduodenoscopy (02/27/21) gastritis, duodenitis History of carpal tunnel release of both wrists History of colonoscopy (02/27/21) descending colon polyp, hemorrhoids History of permanent cardiac pacemaker placement History of urethral stent Hx of cataract surgery Hx of lithotripsy Hx of shoulder surgery Hx of umbilical hernia repair Family History Grandfather CAD (coronary artery disease) Brother Cancer colon cancer Diabetes Mother Diabetes Father No problems noted. Other Hypertension Rheumatoid arthritis Social History Smoking and tobacco status: former smoker Quit status (tobacco): has quit using tobacco Year quit tobacco: 1999 Second hand smoke exposure: No Alcohol intake: former Year of sobriety/quit date alcohol: 1997 Substance/Drug Use: never Caregiver/support person: Yes Lives independently: Yes Household members: spouse Marital status: service: No Current occupational status: disabled Current gender identity: Male Special fernando needs: No Agree to transfusion: Yes Physical Exam Const: COMMON NORMALS: no acute distress, patient oriented x3 and healthy appearing HENMT: COMMON NORMALS: normocephalic and atraumatic HEAD & SCALP: normocephalic and atraumatic Eye: COMMON NORMALS: Equal, round and reactive pupils present and EOMs intact bilaterally PUPIL: Yes Equal, round and reactive pupils present Neck/C-Spine: COMMON NORMALS: full ROM and supple Chest: COMMONS NORMALS: normal inspection of the chest OTHER: point tender in center of chest Resp: COMMON NORMALS: normal respiratory effort, No retractions, No use of accessory muscles and clear to auscultation bilaterally AUSCULTATION: clear to auscultation bilaterally Cardio: COMMON NORMALS: regular rate, regular rhythm and No murmurs present (Cardio) RATE: regular rate RHYTHM: regular rhythm GI: COMMON NORMALS: Normal to inspection, nondistended, normoactive bowel sounds present, Soft to palpation, non-tender and no masses PALPATION: Yes Soft to palpation Extremity: COMMON NORMALS: normal to inspection and full ROM Neuro: COMMON NORMALS: patient oriented x3, moves all extremities and no focal motor deficits Psych: COMMON NORMALS: mental status grossly normal, Normal thought process present and cooperative THOUGHT PROCESS: Normal thought process present Skin: COMMON NORMALS: no rashes or lesions noted and no wounds GENERAL SKIN EXAM: no rashes or lesions noted Course Vital Signs: Vital signs: Vital Signs Temperature 97.9 F 04/11/23 08:38 Pulse Rate 70 04/11/23 10:30 Respiratory Rate 16 04/11/23 10:30 Blood Pressure 109/72 04/11/23 10:30 Pulse Oximetry 94 04/11/23 10:30 Oxygen Delivery Me thod Room Air 04/11/23 08:38 MDM - Chest Pain Medical Decision Making Patient presents for chest pain is likely chest wall pain as he is tender in the center of his chest his troponins here are normal he had already had a recent CT that was negative no signs of PE or dissection here he is to follow-up his PCP and return if worsening. Medical Records I reviewed the patient's medical records. Lab Data I reviewed the patient's lab results. 04/11/23 09:15 04/11/23 09:15 Radiology Impressions Chest X-Ray 04/11/23 08:41 IMPRESSION: 1. Mild cardiac enlargement unchanged. No acute process. Laboratory Results WBC 15.6 10^3/uL (4.0-10.0) H 04/11/23 09:15 RBC 5.35 10^6/uL (4.1-5.3) H 04/11/23 09:15 Hgb 16.6 g/dL (11.7-16.6) 04/11/23 09:15 Hct 48.8 % (42.0-52.0) 04/11/23 09:15 MCV 91.2 fl (80-94) 04/11/23 09:15 MCH 31.0 pg (28.0-34.0) 04/11/23 09:15 MCHC 34.0 g/dL (30.0-36.0) 04/11/23 09:15 RDW 13.6 % (12.1-15.1) 04/11/23 09:15 Plt Count 212 10^3/cmm (130-400) 04/11/23 09:15 MPV 11.2 fL (7.4-10.4) H 04/11/23 09:15 Neut % (Auto) 77.6 % 04/11/23 09:15 Lymph % (Auto) 14.9 % 04/11/23 09:15 Barton % (Auto) 6.0 % 04/11/23 09:15 Eos % (Auto) 0.7 % 04/11/23 09:15 Baso % (Auto) 0.1 % 04/11/23 09:15 Neut # (Auto) 12.10 10^3/uL (1.8-7.7) H 04/11/23 09:15 Lymph # (Auto) 2.3 10^3/uL (0.8-4.8) 04/11/23 09:15 Barton # (Auto) 0.9 10^3/uL (0.2-0.9) 04/11/23 09:15 Eos # (Auto) 0.1 10^3/uL (0.0-0.8) 04/11/23 09:15 Baso # (Auto) 0.0 10^3/uL (0.0-0.1) 04/11/23 09:15 Nucleated RBC % (auto) 0 % 04/11/23 09:15 Nucleated RBCs # 0.0 /100WBC 04/11/23 09:15 PT 13.10 SECONDS (12.1-14.9) 04/11/23 09:15 INR 0.96 (0.8-1.2) 04/11/23 09:15 Sodium 135 mmol/L (136-145) L 04/11/23 09:15 Potassium 4.6 mmol/L (3.5-5.1) 04/11/23 09:15 Chloride 100 mmol/L (98-107) 04/11/23 09:15 Carbon Dioxide 23 mmol/L (22-29) 04/11/23 09:15 Anion Gap 16.6 (5-19) 04/11/23 09:15 BUN 15 mg/dL (8-23) 04/11/23 09:15 Creatinine 0.8 mg/dL (0.7-1.2) 04/11/23 09:15 GFR Calculation 98.0 mL/min (90-130) 04/11/23 09:15 Glucose 203 mg/dL (65-115) H 04/11/23 09:15 Calculated Osmolality 287 mOsm/kg (285-295) 04/11/23 09:15 Calcium 9.1 mg/dL (8.5-10.5) 04/11/23 09:15 Total Bilirubin 0.5 mg/dL (0.15-1.2) 04/11/23 09:15 AST 20 U/L (0-40) 04/11/23 09:15 ALT 37 U/L (0-41) 04/11/23 09:15 Alkaline Phosphatase 91 U/L (40-130) 04/11/23 09:15 Troponin T Baseline 32 ng/L (0-15) H 04/11/23 09:15 Troponin T 120 Minute 29.30 ng/L (0-15) H 04/11/23 11:15 Delta Troponin T -2.70 ABS# (0-10) L 04/11/23 11:15 NT-Pro-B Natriuret Pep 876 pg/mL (0-125) H 04/11/23 09:15 Total Protein 6.9 g/dL (6.6-8.7) 04/11/23 09:15 Albumin 4.2 g/dL (3.5-5.2) 04/11/23 09:15 Globulin 2.7 g/dL (1.3-4.6) 04/11/23 09:15 EKG Data EKG 1: I personally reviewed and interpreted this EKG as follows: EKG interpretation date: 04/11/23 EKG interpretation time: 08:43 Interpretation: paced hr [address] or t wave abnormalities qrs 177 qtc 478 EKG 2: I personally reviewed and interpreted this EKG as follows: EKG interpretation date: 04/11/23 EKG interpretation time: 11:20 Interpretation: paced rhythm hr [address] or t wave abnormalities qrs 164 qtc 468 Discharge Plan Discharge Patient Disposition: Home Clinical Impression: Atypical chest pain Condition: Stable Prescriptions: No Action aspirin [Aspir-Sagraroi] 325 mg tablet,delayed release (DR/EC) 325 mg PO DAILY Hold Instructions: Resume on 12/08/21. (DME) Blood Glucose Test Strip See Rx Instructions .ROUTE .MEDSUPPLY Qty: 100 11RF Rx Instructions: Check blood sugar 2 x daily and prn (DME) lancets [BD Ultra Fine Lancets] 33 gauge misc See Rx Instructions .ROUTE .MEDSUPPLY Qty: 100 11RF Rx Instructions: check blood sugar twice daily and as needed sertraline 100 mg tablet 100 mg PO DAILY Qty: 30 2RF potassium citrate 10 mEq (1,080 mg) tablet extended release 20 meq PO BID Qty: 120 2RF albuterol sulfate [ProAir HFA] 90 mcg/actuation HFA aerosol inhaler 2 puff INHALATION Q6H PRN (Reason: shortness of breath or wheezing) Qty: 18 2RF (DME) nebulizer machine with tubing and mask See Rx Instructions .Route .MEDSUPPLY Qty: 1 0RF Rx Instructions: As directed fluticasone propionate [Flonase Allergy Relief] 50 mcg/actuation spray,suspension 2 spray intranasal DAILY Qty: 16 5RF Rx Instructions: administer into each nostril albuterol sulfate 2.5 mg /3 mL (0.083 %) solution for nebulization 2.5 mg inhalation QID PRN (Reason: shortness of breath or wheezing) Qty: 180 5RF ondansetron HCl 4 mg tablet 4 mg PO QID PRN (Reason: nausea and vomiting) Qty: 30 0RF (DME) blood-glucose meter [Blood Glucose Monitoring] Kit See Rx Instructions .ROUTE .MEDSUPPLY Qty: 1 0RF Rx Instructions: As directed; to test 2 x day and prn allopurinol 300 mg tablet See Rx Instructions .ROUTE .COMPLEX Qty: 90 1RF Dose Instruction: Take 1 tablet by mouth once daily Rx Instructions: Take 1 tablet by mouth once daily carvedilol 25 mg tablet 25 mg PO BID Qty: 180 1RF magnesium L-lactate 84 mg tablet extended release 84 mg PO DAILY Qty: 90 2RF Trulicity 0.75 mg/0.5 mL pen injector See Rx Instructions .ROUTE .COMPLEX Qty: 4 0RF Dose Instruction: INJECT 0.75MG (0.5ML) SUBCUTANEOUSLY WEEKLY ON TUESDAYS Rx Instructions: INJECT 0.75MG (0.5ML) SUBCUTANEOUSLY WEEKLY ON TUESDAYS rosuvastatin 20 mg tablet See Rx Instructions .ROUTE .COMPLEX Qty: 90 1RF Dose Instruction: Take 1 tablet by mouth once daily Rx Instructions: Take 1 tablet by mouth once qpm omeprazole 40 mg capsule,delayed release(DR/EC) See Rx Instructions .ROUTE .COMPLEX Qty: 90 1RF Dose Instruction: Take 1 capsule by mouth once daily Rx Instructions: Take 1 capsule by mouth once daily Allergy Relief (cetirizine) 10 mg tablet See Rx Instructions .ROUTE .COMPLEX Qty: 90 1RF Dose Instruction: Take 1 tablet by mouth once daily Rx Instructions: Take 1 tablet by mouth once daily amiodarone 400 mg tablet 400 mg PO DAILY Qty: 65 0RF Rx Instructions: 400 mg TID for the first week, then 400 BID for the second week, then after that 400 daily sacubitril-valsartan 97-103 mg tablet 1 tab PO BID Qty: 180 3RF Men's 50 Plus Multivitamin 400-20-370 mcg Tablet 1 tab PO DAILY furosemide 20 mg tablet 20 mg PO QAM Qty: 30 0RF dapagliflozin 10 mg tablet 10 mg PO DAILY Qty: 90 0RF levofloxacin 750 mg tablet 750 mg PO DAILY 5 Days Qty: 5 0RF Discharge Orders: Discharge ED (Routine); Ordered 04/11/23 Ordered By: Gurvinder Felton Referrals: Lucrecia Blandon FNP [Primary Care Provider] - 1-3 days Discharge Diet: Advance as tolerated Discharge Activity: Resume usual activity Patient Instructions: Chest Pain (ED) Coding Level of Care Code ED Senior [employer] 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
[2023-04-11] MEDS: ondansetron 2 mg/ML SDV 2 mL 4 MG IVP (09:10)
[2023-04-11] MEDS: morphine 4 mg/mL SDV 1 mL IVP (09:10)
[2023-04-11 09:32] LABS: Basophils % 0.1 %; Eosinophils # 0.1 10^3/uL (0.0-0.8); Eosinophils % 0.7 %; Hematocrit 48.8 % (42.0-52.0); Hemoglobin 16.6 g/dL (11.7-16.6); Lymphocytes # 2.3 10^3/uL (0.8-4.8); Lymphocytes % 14.9 %; Mean Corpuscular Volume 91.2 fl (80-94); Mean Platelet Volume 11.2 fL (7.4-10.4); Monocytes # 0.9 10^3/uL (0.2-0.9); Neutrophils % 77.6 %; Nucleated Red Blood Cells % 0 %; Platelet Count 212 10^3/cmm (130-400); Red Blood Count 5.35 10^6/uL (4.1-5.3); Red Cell Distribution Width 13.6 % (12.1-15.1); White Blood Count 15.6 10^3/uL (4.0-10.0)
[2023-04-11 09:44] LABS: INR 0.96 (0.8-1.2)
[2023-04-11 09:50] LABS: Troponin(5th) Baseline 32 ng/L (0-15)
[2023-04-11 09:59] LABS: Alanine Aminotransferase 37 U/L (0-41); Albumin Level 4.2 g/dL (3.5-5.2); Alkaline Phosphatase 91 U/L (40-130); Anion Gap 16.6 (5-19); Aspartate Amino Transferase 20 U/L (0-40); Blood Urea Nitrogen 15 mg/dL (8-23); Calcium 9.1 mg/dL (8.5-10.5); Carbon Dioxide 23 mmol/L (22-29); Chloride 100 mmol/L (98-107); Globulin 2.7 g/dL (1.3-4.6); Glucose 203 mg/dL (65-115); NT Pro B Type Natriuretic Pept 876 pg/mL (0-125); Osmolality Calculated 287 mOsm/kg (285-295); Potassium 4.6 mmol/L (3.5-5.1); Sodium 135 mmol/L (136-145); Total Bilirubin 0.5 mg/dL (0.15-1.2); Total Protein 6.9 g/dL (6.6-8.7)
--- NOTE | 2023-04-11 10:41 | ECG_ITS ---
[facility] Test Date: 2023-04-11 Pat Name: Amrik Alexander Department: Room: Gender: Male Spa Manager: : 1960 Requested By: Gurvinder Felton Order Number: [id number] Haja MD: Reese Andrew M.D. Measurements Intervals [place] Rate: 70 P: -58 MT: 198 QRS: 205 QRSD: 164 T: 37 QT: 448 QTc: 484 Interpretive Statements ELECTRONIC ATRIAL PACEMAKER ELECTRONIC VENTRICULAR PACEMAKER Compared to ECG 04/11/2023 08:43:26 No significant changes Electronically Signed On 04-11-2023 13:13:40 CDT by Reese Andrew M.D. [id number]
== END 2023-04-11 12:43 | disposition home or self-care (01) ==
PROVIDERS: Emergency Provider Emergency Medicine; PCP Nurse Practitioner Family
DX: R07.89 Other chest pain (principal)
CPT/HCPCS: 36415; 71045; 80053; 83880; 84484; 85025; 85610; 93005; 96374; 96375; 99285; J2270; J2405

== ENCOUNTER 2023-05-10 06:00 | Outpatient (RCR) | payer MEDICAID, SELFPAY | END 2023-05-30 06:00 | disposition home or self-care (01) | LOC: TPT 06:00 | PROVIDERS: PCP Nurse Practitioner Family; Visit Provider Orthopaedic Surgery | DX: M54.9 Dorsalgia, unspecified (principal); G89.29 Other chronic pain | CPT/HCPCS: 97110 ==

== ENCOUNTER → 2023-05-26 14:32 | Outpatient (BNVA) | payer MEDICAID, SELFPAY | PROVIDERS: PCP Nurse Practitioner Family; Visit Provider Internal Medicine Cardiovascular Disease | DX: I42.0 Dilated cardiomyopathy (principal); G47.33 Obstructive sleep apnea (adult) (pediatric); Z95.810 Presence of automatic (implantable) cardiac defibrillator; I10 Essential (primary) hypertension; K21.9 Gastro-esophageal reflux disease without esophagitis; G89.29 Other chronic pain; M54.50 Low back pain, unspecified; Z87.891 Personal history of nicotine dependence | CPT/HCPCS: 99214 ==

== ENCOUNTER → 2023-06-11 08:30 | Outpatient (BNVA) | payer MEDICAID, SELFPAY | PROVIDERS: PCP Nurse Practitioner Family; Visit Provider Internal Medicine Cardiovascular Disease | DX: R06.02 Shortness of breath (principal) | CPT/HCPCS: 80048; 83880 ==

== ENCOUNTER 2023-06-20 07:28 | Outpatient (CLI) | payer MEDICAID, SELFPAY ==
--- NOTE | 2023-06-20 | ECG_ITS ---
[facility] Test Date: 2023-06-20 Pat Name: Amrik Alexander Department: Room: Gender: Male Supervisor Salvage: : 1960 Requested By: Joe Holder Order Number: [id number] Haja MD: Joe Holder M.D. Interpretive Statements NAME OF STUDY: LEXISCAN SESTAMIBI STRESS TEST INDICATION: CHF, PROCEDURE: At the baseline, the EKG revealed 100% paced ventricular rhythm. The baseline heart was 70 bpm with a blood pressue of 122/77 mm of Hg Lexiscan was infused over a period of 20 seconds. A total of 0.4 milligrams of Lexiscan was infused. The stress phase was continued for a total of 5 minutes. Heart rate at the end of the stress phase was 76 bpm with a blood pressure 112/82 mm of Hg. The EKG at the peak infusion revealed no significant changes. Sestamibi was injected 20 seconds after the Lexiscan infusion. Heart rate at the end of the recovery phase was 76 bpm with a blood pressure of 119/63 mm of Hg. CONCLUSION: 1. No significant EKG changes with the LexiScan infusion 2. No LexiScan induced chest pain or cardiac arrhythmia 3. Normal blood pressure and heart rate response 4. Sestamibi/sestamibi perfusion scan pending; see separate report. Electronically Signed On 06-22-2023 18:21:20 CDT by Joe Holder M.D. [id number]
[2023-06-20 07:57] VITALS: BMI 40.7
--- NOTE | 2023-06-20 08:03 | NMCV_ITS ---
NM grace perf SPECT r/s* [id number] Amrik Alexander Age: 62 Gender: M : 1960 Exam Date: 06/20/2023 08:03 Ordering Phys: Joe Holder MD ([email or web address]) Technologist: MELISA Friedman Exam Location: [facility] Indications: CORONARY ANGIOPLASTY STATUS, CHEST PAIN STRESS TEST Please see separate stress test report in [facility] for full findings IMAGE PROTOCOL Rest/Stress 1 Lexiscan Day Radiopharmaceutical Dose (mCi) Administration Site Administered by Rest: Tc-99m 10.7 IV BRITTANY FriedmanMT Sestamibi Stress:Tc-99m 32.4 IV Cyndie Wilson, BUSINESS SYSTEMS ANALYST Sestamibi Rest: 20-Jun-2023 60 Discovery 630 Stress: 20-Jun-2023 30 Discovery 630 0.4mg Lexiscan. Images obtained in supine and prone position. SPECT RESULTS Technical Quality: Excellent Raw Data Analysis: Normal Image Corrections: No attenuation or motion correction applied Summed Stress Score: 9 Summed Rest Score: 5 Summed Difference Score: 4 PERFUSION FINDINGS Moderate area of moderately decreased tracer uptake in the mid and apical inferior, apical lateral, apical anterior and LV apex. Some reversibility was noted in the LV apex, apical anterior and mid inferior regions. FUNCTIONAL RESULTS (calculated via Gated SPECT) Stress Image LV EF (%): 18 Stress EDV (mL):324 TID: 0.94 Stress ESV (mL):265 FUNCTIONAL FINDINGS: Segmental wall motion analysis revealed severe diffuse hypokinesia of the left ventricle. Markedly dilated LV cavity. IMPRESSIONS 1. Myocardial perfusion imaging revealing moderate area of moderately decreased tracer uptake in the inferior, apical lateral, apical anterior and LV apex. Some reversibility suggesting myocardial scarring in the distribution of the right coronary artery/circumflex artery with some danny-infarct ischemia mostly in the RCA territory. 2. Markedly diminished LV ejection fraction of 18% 3. Segmental wall motion analysis revealed severe diffuse hypokinesia of the left medical. 4. Markedly dilated LV cavity with end-systolic volume of 265 ml. No similar previous studies are available for comparison Dr Joe Holder MD FAC (Electronically Signed) Final Date: 20 June 2023 14:49 S
[2023-06-20] MEDS: regadenoson 0.4 Mg/5 ml Syringe IVP (09:28)
[2023-06-20 09:41] VITALS: BP 119/63; PULSE 73
== END 2023-06-20 07:29 | disposition home or self-care (01) ==
PROVIDERS: PCP Nurse Practitioner Family; Visit Provider Internal Medicine Cardiovascular Disease
DX: R07.9 Chest pain, unspecified (principal); I42.9 Cardiomyopathy, unspecified; I10 Essential (primary) hypertension; Z95.810 Presence of automatic (implantable) cardiac defibrillator; Z98.61 Coronary angioplasty status
CPT/HCPCS: 36415; 78452; 93017; 96374; A9500; J2785

== ENCOUNTER 2023-07-02 19:14 | Emergency (ER) | payer MEDICAID, SELFPAY ==
[2023-07-02 19:16] VITALS: BP 113/73; PULSE 78; RESP 18; TEMP 36.4; O2SAT 96; BMI 41.2
[2023-07-02 20:42] LABS: Basophils # 0.1 10^3/uL (0.0-0.1); Basophils % 0.4 %; Eosinophils # 0.1 10^3/uL (0.0-0.8); Hematocrit 49.5 % (37-53); Lymphocytes # 3.5 10^3/uL (0.8-4.8); Lymphocytes % 28.7 %; Mean Corpuscular HGB Conc 34.3 g/dL (30-55); Mean Corpuscular Hemoglobin 30.8 pg (27-33); Mean Corpuscular Volume 89.7 fl (82-101); Mean Platelet Volume 11.2 fL (7.4-10.4); Monocytes # 0.8 10^3/uL (0.2-0.9); Monocytes % 6.5 %; Neutrophils # 7.55 10^3/uL (1.8-7.7); Neutrophils % 62.2 %; Nucleated Red Blood Cells % 0 %; Platelet Count 202 10^3/cmm (157-399); Red Blood Count 5.52 10^6/uL (3.85-5.65); Red Cell Distribution Width 14.1 % (12.1-15.1); White Blood Count 12.15 10^3/uL (3.29-11.43)
[2023-07-02 21:11] LABS: Alanine Aminotransferase 52 U/L (0-41); Albumin Level 4.3 g/dL (3.5-5.2); Alkaline Phosphatase 92 U/L (40-130); Anion Gap 15.6 (5-19); Aspartate Amino Transferase 31 U/L (0-40); Blood Urea Nitrogen 20 mg/dL (8-23); Calcium 9.5 mg/dL (8.5-10.5); Carbon Dioxide 25 mmol/L (22-29); Chloride 101 mmol/L (98-107); Globulin 2.3 g/dL (1.3-4.6); Glomerular Filtration Rate 85.5 mL/min (90-130); Glucose 161 mg/dL (65-115); Lipase 97 U/L (13-60); Osmolality Calculated 290 mOsm/kg (285-295); Potassium 4.6 mmol/L (3.5-5.1); Sodium 137 mmol/L (136-145); Total Bilirubin 0.4 mg/dL (0.15-1.2); Total Protein 6.6 g/dL (6.6-8.7)
--- NOTE | 2023-07-02 22:11 | CTR_ITS ---
PROCEDURE INFORMATION: Exam: CT Abdomen And Pelvis Without Contrast Exam date and time: 07/02/2023 10:19 PM Age: 62 years old Clinical indication: Abdominal pain; Localized; Left upper quadrant (luq); Prior surgery; Surgery date: 6+ months; Surgery type: Hernia repair; Additional info: Left flank pain TECHNIQUE: Imaging protocol: Computed tomography of the abdomen and pelvis without contrast. Radiation optimization: All CT scans at this facility use at least one of these dose optimization techniques: automated exposure control; mA and/or kV adjustment per patient size (includes targeted exams where dose is matched to clinical indication); or iterative reconstruction. REPORTING DATA: Count of CT and Cardiac NM exams in prior 12 months: This patient has received 2 known CTs and 0 known cardiac nuclear medicine studies in the 12 months prior to the current study. COMPARISON: CT angio chest w abd pel w con 04/06/2023 10:33 PM RADIATION DOSE METRICS: Total DLP (mGy-cm): 1176.66 FINDINGS: Tubes, catheters and devices: Pacemaker leads are noted. Lungs: Clear basilar lung parenchyma. Pleural spaces: No pleural fluid. Heart: Normal heart size. Diaphragm: Tiny sliding hiatal hernia. Liver: Normal configuration. Homogeneous parenchyma. Gallbladder and bile ducts: Postprandial gallbladder is contracted. Pancreas: Fatty atrophy of the pancreas without visible inflammation or mass. Spleen: Normal. No splenomegaly. Adrenal glands: Normal configuration. Kidneys and ureters: Left intrarenal stone. No ureteral stones on either side. Stomach and bowel: Postprandial stomach. Normal caliber small bowel. Distal colonic diverticulosis without evidence of acute diverticulitis. Appendix: Normal appendix is confirmed. Intraperitoneal space: No free air. No significant fluid collection. Vasculature: Moderate aortoiliac calcific atherosclerosis without aneurysm. Lymph nodes: No enlarged lymph nodes. Urinary bladder: Unremarkable as visualized. Reproductive: Physiologic appearance for age. Bones/joints: No fracture or destructive lesion. Soft tissues: Unremarkable. CT/CT kidney stone [id number] IMPRESSION: No acute abnormality identified to explain patient's left upper quadrant pain. Although a left intrarenal stone is noted, there is no evidence of renal obstruction or ureteral stone. There is diverticulosis without evidence of acute diverticulitis.
--- NOTE | 2023-07-02 22:12 | ED_ITS ---
HPI - Abdominal Pain General: Chief Complaint: Abdominal Pain Stated Complaint: back pain, lower left pain Time Seen by Provider: 07/02/23 22:04 Source: patient Mode of arrival: ambulatory Limitations: no limitations History of Present Illness: 62-year-old male states been having some left lower back pain that radiates to his groin since . He states he has had a history of kidney stones this feels similar he denies any dysuria denies any nausea or vomiting he rates his pain a 5 out of 10 currently he denies any fevers. Associated Symptoms: Denies chills, diarrhea, fever(s), nausea and vomiting Review of Systems Const: Denies: fever(s), chills, body aches or change in appetite ENMT: Denies: throat pain or dental pain Card: Denies: chest pain Resp: Denies: dyspnea GI: Denies: abdominal pain, nausea, vomiting or diarrhea Musc: Reports: back pain; Denies: neck pain Skin/Breast: Denies: rash Neuro: Denies: headache(s) PFSH ED PFSH: Medical History Bipolar II disorder C. difficile diarrhea Cardiac resynchronization therapy defibrillator ([employer] II [employer]-D) in place [email or web address] Dr. [place], 07/11/2020 Cardiomyopathy Cataracts, bilateral CHF (congestive heart failure) Diabetes GERD (gastroesophageal reflux disease) Hemorrhoids Hypertension Mixed hyperlipidemia ALBERTO (obstructive sleep apnea) Osteoarthritis of hands, bilateral Pacemaker Psychiatric care Right ureteral calculus Urolithiasis Multi stone former, calcium oxalate mono and dihydrate. Also calcium phosphate. Multiple interventions including endoscopy with laser lithotripsy and ESWL. Metabolic treatment with potassium citrate Surgical History H/O esophagogastroduodenoscopy (02/27/21) gastritis, duodenitis History of carpal tunnel release of both wrists History of colonoscopy (02/27/21) descending colon polyp, hemorrhoids History of permanent cardiac pacemaker placement History of urethral stent Hx of cataract surgery Hx of lithotripsy Hx of shoulder surgery Hx of umbilical hernia repair Family History Grandfather CAD (coronary artery disease) Brother Cancer colon cancer Diabetes Mother Diabetes Father No problems noted. Other Hypertension Rheumatoid arthritis Social History Smoking and tobacco status: former smoker Quit status (tobacco): has quit using tobacco Year quit tobacco: 1999 Second hand smoke exposure: No Alcohol intake: former Year of sobriety/quit date alcohol: 1997 Substance/Drug Use: never Caregiver/support person: Yes Lives independently: Yes Household members: spouse Marital status: service: No Current occupational status: disabled Current gender identity: Male Special fernando needs: No Agree to transfusion: Yes Physical Exam Const: COMMON NORMALS: no acute distress, patient oriented x3 and healthy appearing HENMT: COMMON NORMALS: normocephalic and atraumatic HEAD & SCALP: normocephalic and atraumatic Neck/C-Spine: COMMON NORMALS: full ROM and supple Chest: COMMONS NORMALS: normal inspection of the chest and normal palpation of entire chest wall Resp: COMMON NORMALS: normal respiratory effort, No retractions, No use of accessory muscles and clear to auscultation bilaterally AUSCULTATION: clear to auscultation bilaterally Cardio: COMMON NORMALS: regular rate, regular rhythm and No murmurs present (Cardio) RATE: regular rate RHYTHM: regular rhythm GI: COMMON NORMALS: Normal to inspection, nondistended, normoactive bowel sounds present, Soft to palpation, non-tender and no masses PALPATION: Yes Soft to palpation Back/Pelvis: OTHER: Left lower lumbar tenderness on exam Extremity: COMMON NORMALS: normal to inspection and full ROM Neuro: COMMON NORMALS: patient oriented x3, moves all extremities and no focal motor deficits Psych: COMMON NORMALS: mental status grossly normal, Normal thought process present and cooperative THOUGHT PROCESS: Normal thought process present Skin: COMMON NORMALS: no rashes or lesions noted and no wounds GENERAL SKIN EXAM: no rashes or lesions noted Course Vital Signs: Vital signs: Vital Signs Temperature 97.6 F 07/02/23 19:16 Pulse Rate 70 07/02/23 22:39 Respiratory Rate 18 07/02/23 22:37 Blood Pressure 122/70 07/02/23 22:39 Pulse Oximetry 95 07/02/23 22:39 Oxygen Delivery Me thod Room Air 07/02/23 22:39 MDM - Abdominal Pain Medical Decision Making Patient presents with left flank pain is likely muscular in nature he is point tender on exam CT scan shows no kidney stone blood work urinalysis all normal placed on Robaxin and Naprosyn he is stable for discharge he is to follow-up with PCP and return if worsening. He understands agrees to plan. Lab Data 07/02/23 20:28 07/02/23 20:28 Labs/Radiology: Radiology Impressions Abdomen/Pelvis CT 07/02/23 22:11 IMPRESSION: No acute abnormality identified to explain patient's left upper quadrant pain. Although a left intrarenal stone is noted, there is no evidence of renal obstruction or ureteral stone. There is diverticulosis without evidence of acute diverticulitis. Laboratory Results WBC 12.15 10^3/uL (3.29-11.43) H 07/02/23 20: RBC 5.52 10^6/uL (3.85-5.65) 07/02/23 20:28 Hgb 17.00 g/dL (11.27-16.99) H 07/02/23 20:28 Hct 49.5 % (37-53) 07/02/23 20: MCV 89.7 fl (82-101) 07/02/23 20: MCH 30.8 pg (27-33) 07/02/23 20: MCHC 34.3 g/dL (30-55) 07/02/23 20: RDW 14.1 % (12.1-15.1) 07/02/23 20: Plt Count 202 10^3/cmm (157-399) 07/02/23 20: MPV 11.2 fL (7.4-10.4) H 07/02/23 20:28 Neut % (Auto) 62.2 % 07/02/23 20:28 Lymph % (Auto) 28.7 % 07/02/23 20:28 [place] % (Auto) 6.5 % 07/02/23 20: Eos % (Auto) 1.0 % 07/02/23 20: Baso % (Auto) 0.4 % 07/02/23 20:28 Neut # (Auto) 7.55 10^3/uL (1.8-7.7) 07/02/23 20:28 Lymph # (Auto) 3.5 10^3/uL (0.8-4.8) 07/02/23 20: [place] # (Auto) 0.8 10^3/uL (0.2-0.9) 07/02/23 20: Eos # (Auto) 0.1 10^3/uL (0.0-0.8) 07/02/23 20: Baso # (Auto) 0.1 10^3/uL (0.0-0.1) 07/02/23 20: Nucleated RBC % (auto) 0 % 07/02/23 20: Nucleated RBCs # 0.0 /100WBC 07/02/23 20: Sodium 137 mmol/L (136-145) 07/02/23 20: Potassium 4.6 mmol/L (3.5-5.1) 07/02/23 20: Chloride 101 mmol/L (98-107) 07/02/23 20: Carbon Dioxide 25 mmol/L (22-29) 07/02/23: Anion Gap 15.6 (5-19) 07/02/23 20: BUN 20 mg/dL (8-23) 07/02/23 20: Creatinine 0.9 mg/dL (0.7-1.2) 07/02/23 20: GFR Calculation 85.5 mL/min (90-130) L 07/02/23 20: Glucose 161 mg/dL (65-115) H 07/02/23 20: Calculated Osmolality 290 mOsm/kg (285-295) 07/02/23 Calcium 9.5 mg/dL (8.5-10.5) 07/02/23 20: Total Bilirubin 0.4 mg/dL (0.15-1.2) 07/02/23 20: AST 31 U/L (0-40) 07/02/23 20: ALT 52 U/L (0-41) H 07/02/23 20: Alkaline Phosphatase 92 U/L (40-130) 07/02/23 20: Total Protein 6.6 g/dL (6.6-8.7) 07/02/23 20: Albumin 4.3 g/dL (3.5-5.2) 07/02/23 20: Globulin 2.3 g/dL (1.3-4.6) 07/02/23 20:28 Lipase 97 U/L (13-60) H 07/02/23 20:28 Urine Color Yellow (Yellow) 07/02/23 22:17 Urine Appearance Clear (CLEAR) 07/02/23 22:17 Urine pH 6 (5-7) 07/02/23 22:17 Ur Specific [place] 1.015 (1.005-1.030) 07/02/23 22:17 Urine Protein Neg (Negative) 07/02/23 22:17 Urine Glucose (UA) 4+ (Normal) H 07/02/23 22:17 Urine Ketones Negative (Negative) 07/02/23 22:17 Urine Blood Neg (Negative) 07/02/23 22:17 Urine Nitrate Negative (Negative) 07/02/23 22:17 Urine Bilirubin Neg (Negative) 07/02/23 22:17 Urine Urobilinogen Neg mg/dL (Negative) 07/02/23 22:17 Ur Leukocyte Esterase Negative (Negative) 07/02/23 22:17 Discharge Plan Discharge Patient Disposition: Home Clinical Impression: Low back pain Condition: Stable Prescriptions: New methocarbamol 750 mg tablet 750 mg PO Q6H PRN (Reason: spasms) Qty: 20 0RF Naprosyn 500 mg tablet 500 mg PO BID PRN (Reason: pain) Qty: 20 0RF No Action aspirin [Aspir-Sagrario] 325 mg tablet,delayed release (DR/EC) 325 mg PO DAILY Hold Instructions: Resume on 12/08/21. (DME) Blood Glucose Test Strip See Rx Instructions .ROUTE .MEDSUPPLY Qty: 100 11RF Rx Instructions: Check blood sugar 2 x daily and prn (DME) lancets [BD Ultra Fine Lancets] 33 gauge misc See Rx Instructions .ROUTE .MEDSUPPLY Qty: 100 11RF Rx Instructions: check blood sugar twice daily and as needed sertraline 100 mg tablet 100 mg PO DAILY Qty: 30 2RF carvedilol 12.5 mg tablet 12.5 mg PO BID 90 Days Qty: 180 1RF methylprednisolone [Medrol (Loki)] 4 mg tablets,dose pack See Rx Instructions PO PER PKG DIR Qty: 21 0RF Rx Instructions: PO PER PKG DIR potassium citrate 10 mEq (1,080 mg) tablet extended release 20 meq PO BID Qty: 120 2RF albuterol sulfate [ProAir HFA] 90 mcg/actuation HFA aerosol inhaler 2 puff INHALATION Q6H PRN (Reason: shortness of breath or wheezing) Qty: 18 2RF (DME) nebulizer machine with tubing and mask See Rx Instructions .Route .MEDSUPPLY Qty: 1 0RF Rx Instructions: As directed fluticasone propionate [Flonase Allergy Relief] 50 mcg/actuation spray,suspension 2 spray intranasal DAILY Qty: 16 5RF Rx Instructions: administer into each nostril ondansetron HCl 4 mg tablet 4 mg PO QID PRN (Reason: nausea and vomiting) Qty: 30 0RF (DME) blood-glucose meter [Blood Glucose Monitoring] Kit See Rx Instructions .ROUTE .MEDSUPPLY Qty: 1 0RF Rx Instructions: As directed; to test 2 x day and prn magnesium L-lactate 84 mg tablet extended release 84 mg PO DAILY Qty: 90 2RF Trulicity 0.75 mg/0.5 mL pen injector See Rx Instructions .ROUTE .COMPLEX Qty: 4 0RF Dose Instruction: INJECT 0.75MG (0.5ML) SUBCUTANEOUSLY WEEKLY ON TUESDAYS Rx Instructions: INJECT 0.75MG (0.5ML) SUBCUTANEOUSLY WEEKLY ON TUESDAYS rosuvastatin 20 mg tablet See Rx Instructions .ROUTE .COMPLEX Qty: 90 1RF Dose Instruction: Take 1 tablet by mouth once daily Rx Instructions: Take 1 tablet by mouth once qpm omeprazole 40 mg capsule,delayed release(DR/EC) See Rx Instructions .ROUTE .COMPLEX Qty: 90 1RF Dose Instruction: Take 1 capsule by mouth once daily Rx Instructions: Take 1 capsule by mouth once daily Allergy Relief (cetirizine) 10 mg tablet See Rx Instructions .ROUTE .COMPLEX Qty: 90 1RF Dose Instruction: Take 1 tablet by mouth once daily Rx Instructions: Take 1 tablet by mouth once daily amiodarone 400 mg tablet 400 mg PO DAILY Qty: 65 0RF Rx Instructions: 400 mg TID for the first week, then 400 BID for the second week, then after that 400 daily sacubitril-valsartan 97-103 mg tablet 1 tab PO BID Qty: 180 3RF allopurinol 300 mg tablet See Rx Instructions .ROUTE .COMPLEX Qty: 90 1RF Dose Instruction: Take 1 tablet by mouth once daily Rx Instructions: Take 1 tablet by mouth once daily albuterol sulfate 2.5 mg /3 mL (0.083 %) solution for nebulization 2.5 mg inhalation QID PRN (Reason: shortness of breath or wheezing) Qty: 180 5RF Men's 50 Plus Multivitamin 400-20-370 mcg Tablet 1 tab PO DAILY furosemide 20 mg tablet 20 mg PO QAM Qty: 30 0RF dapagliflozin 10 mg tablet 10 mg PO DAILY Qty: 90 0RF Discharge Orders: Discharge ED (Routine); Ordered 07/02/23 Ordered By: Gurvinder Felton Referrals: Lucrecia Blandon FNP [Primary Care Provider] - Discharge Diet: Advance as tolerated Discharge Activity: Resume usual activity Patient Instructions: Acute Low Back Pain (ED) Coding Level of Care Code ED Director [employer] for [employer]
[2023-07-02 22:23] LABS: Add Urine Microscopic? NO; Charge for UA Resulting for Rev
[2023-07-02 22:26] LABS: Bilirubin Urine Neg (Negative); Blood Urine Neg (Negative); Glucose Urine UA 4+ (Normal); Ketones Urine Negative (Negative); Leukocyte Esterase Urine Negative (Negative); Nitrate Urine Negative (Negative); Protein Urine Neg (Negative); Specific Gravity, Urine 1.015 (1.005-1.030); Urine Appearance Clear (CLEAR); Urine Color Yellow (Yellow); Urobilinogen Urine Neg (Negative); pH Urine 6 (5-7)
[2023-07-02 22:37] VITALS: RESP 18; O2SAT 95
[2023-07-02] MEDS: morphine 4 mg/mL SDV 1 mL IVP (22:37)
[2023-07-02] MEDS: ondansetron 2 mg/ML SDV 2 mL 4 MG IVP (22:38)
[2023-07-02 22:39] VITALS: BP 122/70; PULSE 70; O2SAT 95
[2023-07-02 23:20] VITALS: BP 125/77; PULSE 74; O2SAT 92
== END 2023-07-02 23:21 | disposition home or self-care (01) ==
PROVIDERS: Nurse Practitioner Family; Emergency Provider Emergency Medicine; PCP Nurse Practitioner Family
DX: M54.50 Low back pain, unspecified (principal); Z79.82 Long term (current) use of aspirin; Z79.85 Long-term (current) use of injectable non-insulin antidiabetic drugs; Z87.891 Personal history of nicotine dependence; I11.0 Hypertensive heart disease with heart failure; I50.9 Heart failure, unspecified; E11.9 Type 2 diabetes mellitus without complications; E78.2 Mixed hyperlipidemia; Z95.0 Presence of cardiac pacemaker
CPT/HCPCS: 36415; 74176; 80053; 81003; 83690; 85025; 96374; 96375; 99285; J2270; J2405

== ENCOUNTER → 2023-07-08 10:23 | Outpatient (BNVA) | payer MEDICAID, SELFPAY | PROVIDERS: PCP Nurse Practitioner Family; Visit Provider Specialist | DX: M19.011 Primary osteoarthritis, right shoulder | CPT/HCPCS: 20610; J1100; J2795; J3301 ==

== ENCOUNTER → 2023-07-24 10:44 | Outpatient (BNVA) | payer MEDICAID, SELFPAY | PROVIDERS: PCP Nurse Practitioner Family; Visit Provider Nurse Practitioner Family | DX: E11.65 Type 2 diabetes mellitus with hyperglycemia | CPT/HCPCS: 80053; 80061; 83036; 83880; 84443; 85025 ==

== ENCOUNTER 2023-08-17 06:27 | Inpatient (IN) | payer MEDICAID, SELFPAY ==
[2023-08-17] VITALS (7 sets, daily range): BP systolic 108–154; BP diastolic 71–88; PULSE 63–87; RESP 17–20; TEMP 35.9–36.7; O2SAT 95–99; BMI 44.9
--- NOTE | 2023-08-17 06:45 | CTR_ITS ---
PROCEDURE INFORMATION: Exam: CTA Head With Contrast, Arteriography Exam date and time: 08/17/2023 6:50 AM Age: 62 years old Clinical indication: Headache and speech disturbance and paralysis, transient of limb; Slurred speech; Additional info: Poss CVA TECHNIQUE: Imaging protocol: Computed tomographic angiography of the head with contrast. Exam focused on the arteries. 3D rendering (Not supervised by radiologist): MIP and/or 3D reconstructed images were created by the technologist. Radiation optimization: All CT scans at this facility use at least one of these dose optimization techniques: automated exposure control; mA and/or kV adjustment per patient size (includes targeted exams where dose is matched to clinical indication); or iterative reconstruction. Contrast material: OMNI 350; Contrast volume: 100 ml; Contrast route: INTRAVENOUS (IV); REPORTING DATA: Count of CT and Cardiac NM exams in prior 12 months: This patient has received 3 known CTs and 0 known cardiac nuclear medicine studies in the 12 months prior to the current study. COMPARISON: CT head wo con* [id number] 08/17/2023 6:48 AM RADIATION DOSE METRICS: Total DLP (mGy-cm): 645.41 FINDINGS: ANTERIOR CIRCULATION: Right internal carotid artery: Intracranial segment is patent with no significant stenosis. No aneurysm. Right middle cerebral artery: No occlusion or significant stenosis. No aneurysm. Right anterior cerebral artery: No occlusion or significant stenosis. No aneurysm. Left internal carotid artery: Intracranial segment is patent with no significant stenosis. No aneurysm. Left middle cerebral artery: No occlusion or significant stenosis. No aneurysm. Left anterior cerebral artery: No occlusion or significant stenosis. No aneurysm. POSTERIOR CIRCULATION: Right vertebral artery: No occlusion or significant stenosis. No aneurysm. Left vertebral artery: No occlusion or significant stenosis. No aneurysm. Basilar artery: No occlusion or significant stenosis. No aneurysm. Right posterior cerebral artery: No occlusion or significant stenosis. No aneurysm. Left posterior cerebral artery: No occlusion or significant stenosis. No aneurysm. 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 Cerebral ventricles: No ventriculomegaly. Orbital cavities: The patient is post bilateral cataract surgery. Paranasal sinuses: Minor mucosal thickening is noted within the right frontal recess and sphenoid sinus. Bones/joints: Unremarkable. No acute fracture. Soft tissues: Unremarkable. PROCEDURE INFORMATION: Exam: CTA Neck With Contrast Exam date and time: 08/17/2023 6:50 AM Age: 62 years old Clinical indication: Headache and speech disturbance and paralysis, transient of limb; Slurred speech; Additional info: Poss CVA TECHNIQUE: Imaging protocol: Computed tomographic angiography of the neck with contrast. 3D rendering (Not supervised by radiologist): MIP and/or 3D reconstructed images were created by the technologist. Radiation optimization: All CT scans at this facility use at least one of these dose optimization techniques: automated exposure control; mA and/or kV adjustment per patient size (includes targeted exams where dose is matched to clinical indication); or iterative reconstruction. Contrast material: OMNI 350; Contrast volume: 100 ml; Contrast route: INTRAVENOUS (IV); REPORTING DATA: Count of CT and Cardiac NM exams in prior 12 months: This patient has received 3 known CTs and 0 known cardiac nuclear medicine studies in the 12 months prior to the current study. COMPARISON: CT cervical spin wo con* [id number] 08/21/2021 11:37 AM RADIATION DOSE METRICS: Total DLP (mGy-cm): 645.41 FINDINGS: There is mild atheromatous calcific plaque noted at the carotid bulbs, left greater than right with no significant stenosis. Right common carotid artery: No stenosis. No dissection or occlusion. Right internal carotid artery: No stenosis of the extracranial segment. No dissection or occlusion. Right external carotid artery: No occlusion or stenosis of the origin. Left common carotid artery: No stenosis. No dissection or occlusion. Left internal carotid artery: No stenosis of the extracranial segment. No dissection or occlusion. Left external carotid artery: No occlusion or stenosis of the origin. Right vertebral artery: No stenosis. No dissection or occlusion. Left vertebral artery: No stenosis. No dissection or occlusion. Soft tissues: Normal. No significant soft tissue swelling. Bones/joints: No acute fracture. CT/CT angio headneck* [id number] IMPRESSION: No intracranial large vessel occlusion. IMPRESSION: No evidence for cervical carotid stenosis. REFERENCES: NASCET CRITERIA. The degree of stenosis in the cervical segment of the internal carotid artery is based on NASCET criteria. Normal is no stenosis. Mild is less than 50% stenosis. Moderate is 50-69% stenosis. Severe is 70% to 99% stenosis. Total occlusion is no detectable patent lumen.
--- NOTE | 2023-08-17 06:45 | CTR_ITS ---
PROCEDURE INFORMATION: Exam: CT Head Without Contrast Exam date and time: 08/17/2023 6:48 AM Age: 62 years old Clinical indication: Hemiplegia and hemiparesis and numbness / parasthesia; Right side, dominance unknown; Additional info: Poss CVA TECHNIQUE: Imaging protocol: Computed tomography of the head without contrast. Radiation optimization: All CT scans at this facility use at least one of these dose optimization techniques: automated exposure control; mA and/or kV adjustment per patient size (includes targeted exams where dose is matched to clinical indication); or iterative reconstruction. REPORTING DATA: Count of CT and Cardiac NM exams in prior 12 months: This patient has received 3 known CTs and 0 known cardiac nuclear medicine studies in the 12 months prior to the current study. 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 There is no mass effect, midline shift, acute hemorrhage, extra-axial fluid collection or acute lobar infarct noted. Cerebral ventricles: No ventriculomegaly. Paranasal sinuses: There is mild mucosal thickening noted within the right frontal recess and sphenoid sinus. Mastoid air cells: Visualized mastoid air cells are well aerated. Orbital cavities: The patient is post bilateral cataract surgery. Bones/joints: Unremarkable. No acute fracture. Soft tissues: Unremarkable. CT/CT head wo con* [id number] IMPRESSION: No acute intracranial process.
[2023-08-17] MEDS: iohexol 350 mg/mL 500 mL Btl (per mL) IV (06:54)
[2023-08-17 07:04] LABS: Glucose Point of Care 189 mg/dL (70-110)
--- NOTE | 2023-08-17 07:32 | ECG_ITS ---
[facility] Test Date: 2023-08-17 Pat Name: Amrik Alexander Department: Room: Gender: Male Hospice Case Manager: : [id number] Requested By: Andre Estrada Order Number: [id number] Haja MD: Reese Andrew M.D. Measurements Intervals [place] Rate: 70 P: 108 ID: [id number] QRS: 198 QRSD: 208 T: 38 QT: 488 QTc: 528 Interpretive Statements ELECTRONIC ATRIAL PACEMAKER ELECTRONIC VENTRICULAR PACEMAKER Compared to ECG 04/11/2023 11:20:21 No significant changes Electronically Signed On 08-17-2023 22:52:56 CDT by Reese Andrew M.D. [id number]
[2023-08-17 07:53] LABS: Basophils % 0.5 %; Eosinophils # 0.1 10^3/uL (0.0-0.8); Hematocrit 49.5 % (37-53); Lymphocytes % 24.7 %; Mean Corpuscular HGB Conc 34.7 g/dL (30-55); Mean Corpuscular Hemoglobin 31.9 pg (27-33); Mean Corpuscular Volume 91.8 fl (82-101); Mean Platelet Volume 11.8 fL (7.4-10.4); Monocytes # 0.6 10^3/uL (0.2-0.9); Monocytes % 6.8 %; Neutrophils # 5.48 10^3/uL (1.8-7.7); Neutrophils % 66.5 %; Nucleated Red Blood Cells % 0 %; Platelet Count 163 10^3/cmm (157-399); Red Blood Count 5.39 10^6/uL (3.85-5.65); Red Cell Distribution Width 14.2 % (12.1-15.1); White Blood Count 8.23 10^3/uL (3.29-11.43)
[2023-08-17 08:05] LABS: Alanine Aminotransferase 26 U/L (0-41); Alkaline Phosphatase 96 U/L (40-130); Aspartate Amino Transferase 17 U/L (0-40); Blood Urea Nitrogen 15 mg/dL (8-23); Calcium 9.1 mg/dL (8.5-10.5); Carbon Dioxide 26 mmol/L (22-29); Chloride 101 mmol/L (98-107); Globulin 2.5 g/dL (1.3-4.6); Glucose 198 mg/dL (65-115); Osmolality Calculated 290 mOsm/kg (285-295); Sodium 137 mmol/L (136-145); Total Bilirubin 0.3 mg/dL (0.15-1.2); Total Protein 6.5 g/dL (6.6-8.7)
--- NOTE | 2023-08-17 08:07 | ED_ITS ---
HPI - Neuro Symptoms/Deficit General: Chief Complaint: Neuro Symptoms/Deficit Stated Complaint: WEAKNESS Time Seen by Provider: 08/17/23 06:30 Source: patient Mode of arrival: EMS History of Present Illness: 60-year-old male presents to the emergency room with complaints of right-sided weakness. He went to bed around 9 PM last night woke up at 515. He had right- sided weakness as well as some slurring of the speech. On arrival here he has obvious right-sided weakness and ataxia of the right arm and leg little bit of facial droop and slight slurring of the words although he states that has improved some his vision has been normal. He has a pacer in place he is on full size aspirin he is also on a beta-alex. He tells me he is on the had the pacer for congestive heart failure. When I asked specifically about atrial fibrillation he states he did not think he had that in the past not listed in his old records that I could see. No chest pain or shortness of breath at this time Time: 06:34 Last Observed Normal: 21:00 Location: speech, right face, right arm, right leg and ataxia History of same: No Severity: moderate Quality: weak Relieving factors: none Exacerbating factors: none Context: sudden onset (Awoke with symptoms) Associated symptoms: Deny chest pain, cough, diaphoresis, fevers/chills, headache(s), anorexia, malaise, nausea, seizures, short of breath, syncope, tingling, vertigo, vomiting or weakness Treatments Prior to Arrival: none Review of Systems Const: Denies: chills, malaise or diaphoresis Card: Denies: chest pain or syncope Resp: Denies: dyspnea GI: Denies: abdominal pain, nausea or vomiting : Denies: dysuria Musc: Denies: neck pain or back pain Skin/Breast: Denies: pruritus Neuro: Denies: headache(s) or vertigo PFSH ED PFSH: Medical History Bipolar II disorder C. difficile diarrhea Cardiac resynchronization therapy defibrillator ([employer]-D) in place [facility] [place], 07/11/2020 Cardiomyopathy Cataracts, bilateral CHF (congestive heart failure) Diabetes GERD (gastroesophageal reflux disease) Hemorrhoids Hypertension Mixed hyperlipidemia ALBERTO (obstructive sleep apnea) Osteoarthritis of hands, bilateral Pacemaker Psychiatric care Right ureteral calculus Urolithiasis Multi stone former, calcium oxalate mono and dihydrate. Also calcium phosphate. Multiple interventions including endoscopy with laser lithotripsy and ESWL. Metabolic treatment with potassium citrate Surgical History H/O esophagogastroduodenoscopy (02/27/21) gastritis, duodenitis History of carpal tunnel release of both wrists History of colonoscopy (02/27/21) descending colon polyp, hemorrhoids History of permanent cardiac pacemaker placement History of urethral stent Hx of cataract surgery Hx of lithotripsy Hx of shoulder surgery Hx of umbilical hernia repair Family History Grandfather CAD (coronary artery disease) Brother Cancer colon cancer Diabetes Mother Diabetes Father No problems noted. Other Hypertension Rheumatoid arthritis Social History Smoking and tobacco status: former smoker Quit status (tobacco): has quit using tobacco Year quit tobacco: 1999 Second hand smoke exposure: No Alcohol intake: former Year of sobriety/quit date alcohol: 1997 Substance/Drug Use: never Caregiver/support person: Yes Lives independently: Yes Household members: spouse Marital status: service: No Current occupational status: disabled Current gender identity: Male Special fernando needs: No Agree to transfusion: Yes NIH stroke score NIHSS: Level Of Consciousness - 1a: 0 Level Of Consciousness Questions - 1b: Both Correct Level Of Consciousness Commands - 1c: Both Correct Best Gaze - 2: Normal Visual Barros - 3: No Visual Loss Facial Palsy - 4: Minor Paralysis Motor Arm Right - 5: Drift Motor Arm Left - 5: No Drift Motor Leg Right - 6: Drift Motor Leg Left - 6: No Drift Limb Ataxia - 7: Present In Two Limbs Sensory - 8: Mild To Moderate Loss Best Language - 9: No Aphasia Dysarthia - 10: Mild/Moderate Dysarthia Extinction And Inattention - 11: 0 Score: Total Score: 7 Physical Exam Const: GENERAL APPEARANCE: cooperative and comfortable ORIENTATION/CONSCIOUSNESS: Yes awake, Yes oriented to person, Yes oriented to place and Yes oriented to time HENMT: COMMON NORMALS: normocephalic, atraumatic and hearing grossly normal bilaterally HEAD & SCALP: normocephalic and atraumatic Resp: COMMON NORMALS: normal respiratory effort, No retractions, No use of accessory muscles and clear to auscultation bilaterally AUSCULTATION: clear to auscultation bilaterally Cardio: COMMON NORMALS: regular rate, regular rhythm and No murmurs present (Cardio) RATE: regular rate RHYTHM: regular rhythm GI: COMMON NORMALS: Soft to palpation and No hepatosplenomegaly present AUSCULTATION: Yes normoactive bowel sounds PALPATION: Yes Soft to palpation, No Tenderness to palpation present (GI), No Guarding due to palpation present (GI) and Yes No hepatosplenomegaly present Extremity: COMMON NORMALS: normal to inspection, capillary refill normal, no clubbing, cyanosis or edema, no calf tenderness and no pedal edema Neuro: SENSORIUM/ORIENTATION: Yes oriented to person, Yes oriented to place and Yes oriented to time Skin: COMMON NORMALS: no rashes or lesions noted GENERAL SKIN EXAM: no rashes or lesions noted Course Vital Signs: Vital signs: Vital Signs Temperature 96.6 F L 08/17/23 06:34 Pulse Rate 75 08/17/23 06:34 Respiratory Rate 18 08/17/23 06:34 Blood Pressure 140/88 08/17/23 06:34 Pulse Oximetry 99 08/17/23 06:34 MDM - Neuro Symptoms/Deficit Medical Decision Making EKG shows paced rhythm. CT head negative for acute bleed CTA no large vessel occlusion. Will admit with new onset stroke. He is outside the window for any treatment does not have any lesions amenable to any kind of embolectomy. Discussed with hospitalist orders written Medical Records I reviewed the patient's medical records. Lab Data I reviewed the patient's lab results. 08/17/23 07:00 08/17/23 07:[address] 08/17/23 06:45 IMPRESSION: No acute intracranial process. Head/Neck CTA 08/17/23 06:45 IMPRESSION: No intracranial large vessel occlusion. IMPRESSION: No evidence for cervical carotid stenosis. REFERENCES: NASCET CRITERIA. The degree of stenosis in the cervical segment of the internal carotid artery is based on NASCET criteria. Normal is no stenosis. Mild is less than 50% stenosis. Moderate is 50-69% stenosis. Severe is 70% to 99% stenosis. Total occlusion is no detectable patent lumen. Laboratory Results WBC 8.23 10^3/uL (3.29-11.43) 08/17/23 07:00 RBC 5.39 10^6/uL (3.85-5.65) 08/17/23 07:00 Hgb 17.20 g/dL (11.27-16.99) H 08/17/23 07:00 Hct 49.5 % (37-53) 08/17/23 07:00 MCV 91.8 fl (82-101) 08/17/23 07:00 MCH 31.9 pg (27-33) 08/17/23 07:00 MCHC 34.7 g/dL (30-55) 08/17/23 07:00 RDW 14.2 % (12.1-15.1) 08/17/23 07:00 Plt Count 163 10^3/cmm (157-399) 08/17/23 07:00 MPV 11.8 fL (7.4-10.4) H 08/17/23 07:00 Neut % (Auto) 66.5 % 08/17/23 07:00 Lymph % (Auto) 24.7 % 08/17/23 07:00 [place] % (Auto) 6.8 % 08/17/23 07:00 Eos % (Auto) 1.0 % 08/17/23 07:00 Baso % (Auto) 0.5 % 08/17/23 07:00 Neut # (Auto) 5.48 10^3/uL (1.8-7.7) 08/17/23 07:00 Lymph # (Auto) 2.0 10^3/uL (0.8-4.8) 08/17/23 07:00 [place] # (Auto) 0.6 10^3/uL (0.2-0.9) 08/17/23 07:00 Eos # (Auto) 0.1 10^3/uL (0.0-0.8) 08/17/23 07:00 Baso # (Auto) 0.0 10^3/uL (0.0-0.1) 08/17/23 07:00 Nucleated RBC % (auto) 0 % 08/17/23 07:00 Nucleated RBCs # 0.0 /100WBC 08/17/23 07:00 Sodium 137 mmol/L (136-145) 08/17/23 07:00 Potassium 4.0 mmol/L (3.5-5.1) 08/17/23 07:00 Chloride 101 mmol/L (98-107) 08/17/23 07:00 Carbon Dioxide 26 mmol/L (22-29) 08/17/23 07:00 Anion Gap 14.0 (5-19) 08/17/23 07:00 BUN 15 mg/dL (8-23) 08/17/23 07:00 Creatinine 0.8 mg/dL (0.7-1.2) 08/17/23 07:00 GFR Calculation 98.0 mL/min (90-130) 08/17/23 07:00 Glucose 198 mg/dL (65-115) H 08/17/23 07:00 POC Glucose 189 mg/dL (70-110) H 08/17/23 06:36 Calculated Osmolality 290 mOsm/kg (285-295) 08/17/23 07:00 Calcium 9.1 mg/dL (8.5-10.5) 08/17/23 07:00 Total Bilirubin 0.3 mg/dL (0.15-1.2) 08/17/23 07:00 AST 17 U/L (0-40) 08/17/23 07:00 ALT 26 U/L (0-41) 08/17/23 07:00 Alkaline Phosphatase 96 U/L (40-130) 08/17/23 07:00 Total Protein 6.5 g/dL (6.6-8.7) L 08/17/23 07:00 Albumin 4.0 g/dL (3.5-5.2) 08/17/23 07:00 Globulin 2.5 g/dL (1.3-4.6) 08/17/23 07:00 All radiology interpretation(s) finalized by discharge Discharge Plan Discharge Patient Disposition: Admitted As Inpatient Clinical Impression: Cerebrovascular accident, ICD (implantable cardioverter-defibrillator), dual, in situ, Cardiomyopathy, COPD (chronic obstructive pulmonary disease), Hypertension Condition: Stable Prescriptions: No Action aspirin [Peter Aspirin] 325 mg tablet,delayed release (DR/EC) 325 mg PO QAM Hold Instructions: Resume on 12/08/21. (DME) Blood Glucose Test Strip See Rx Instructions .ROUTE .MEDSUPPLY Qty: 100 11RF Rx Instructions: Check blood sugar 2 x daily and prn (DME) lancets [BD Ultra Fine Lancets] 33 gauge misc See Rx Instructions .ROUTE .MEDSUPPLY Qty: 100 11RF Rx Instructions: check blood sugar twice daily and as needed carvedilol 12.5 mg tablet 12.5 mg PO BID 90 Days Qty: 180 1RF albuterol sulfate [ProAir HFA] 90 mcg/actuation HFA aerosol inhaler 2 puff INHALATION Q6H PRN (Reason: shortness of breath or wheezing) Qty: 18 2RF (DME) nebulizer machine with tubing and mask See Rx Instructions .Route .MEDSUPPLY Qty: 1 0RF Rx Instructions: As directed diclofenac sodium 75 mg tablet,delayed release (DR/EC) 75 mg PO BID PRN (Reason: pain) Qty: 30 0RF (DME) blood-glucose meter [Blood Glucose Monitoring] Kit See Rx Instructions .ROUTE .MEDSUPPLY Qty: 1 0RF Rx Instructions: As directed; to test 2 x day and prn sacubitril-valsartan 97-103 mg tablet 1 tab PO BID Qty: 180 3RF albuterol sulfate 2.5 mg /3 mL (0.083 %) solution for nebulization 2.5 mg inhalation QID PRN (Reason: shortness of breath or wheezing) Qty: 180 5RF potassium citrate 10 mEq (1,080 mg) tablet extended release 20 meq PO BID Qty: 120 2RF methocarbamol 750 mg tablet 750 mg PO Q6H PRN (Reason: spasms) Qty: 60 0RF Men's 50 Plus Multivitamin 400-20-370 mcg Tablet 1 tab PO DAILY Allergy Relief (cetirizine) 10 mg tablet 10 mg PO BEDTIME sertraline 100 mg tablet 100 mg PO QAM omeprazole 40 mg capsule,delayed release(DR/EC) 40 mg PO BEDTIME allopurinol 300 mg tablet 300 mg PO QAM Flonase Allergy Relief 50 mcg/actuation spray,suspension 2 spray intranasal DAILY PRN (Reason: Allergy Symptoms) Rx Instructions: administer into each nostril rosuvastatin 40 mg tablet 40 mg PO BEDTIME magnesium L-lactate 84 mg tablet extended release 84 mg PO QAM dapagliflozin propanediol 10 mg tablet 10 mg PO QAM Trulicity 1.5 mg/0.5 mL pen injector 1.5 mg SUBCUT Q7D Rx Instructions: ON TUESDAYS Referrals: Lucrecia Blandon FNP [Primary Care Provider] - Coding Level of Care Code ED Nurse Charge Rn for Ck Crooks
--- NOTE | 2023-08-17 08:07 | PC.PHAR ---
pt and pts verified pts medications and also brought in pts med bottles-pt didnt bring in amiodarone 400mg (ext shows last filled 03/26/23 30d/s)-lasix 20mg (ext doesnt show when last filled) pt states if the bottles werent in the box he brought then hes not taking-
--- NOTE | 2023-08-17 11:23 | USCV_ITS ---
Catherine Amrik Age: 62 Gender: M : 1960 Exam Date: 08/17/2023 12:46 Ordering Phys: Kacie King MD Technologist: Rafi Limon Exam Location: [facility] [place] Indication: stroke BP: 140 / 88 HR: 70 Rhythm: Sinus Technical Quality: Adequate MEASUREMENTS (Male / Female) Normal Values 2D ECHO LVOT Diameter 2.1 cm LV Ejection Fraction MOD 2C 7.3 % LV Ejection Fraction 2C AL 9.9 % LA Diameter 4.2 cm LA Width 4.2 cm LA Height 5.0 cm RA Width 3.4 cm RA Height 5.2 cm Aorta at Sinotubular Diameter 2.5 cm IVC Diameter 1.8 cm M-MODE Aortic Annulus Diameter 2.2 cm LA Ao Ratio MM 1.9 MV E Point Septal Separation 2.0 cm DOPPLER AV Peak Velocity 113.0 cm/s LVOT Peak Velocity 50.0 cm/s AV Area Cont Eq vti 1.4 cm squared AV Area Cont Eq pk 1.5 cm squared MV Peak Velocity 67.0 cm/s MV Area PHT 4.0 cm squared Mitral E to A Ratio 0.8 MV E' Velocity 26.0 cm/s Mitral E to MV E' Ratio 12.1 Mitral E to LV E' Lateral Ratio 13.4 Mitral E to LV E' Septal Ratio 10.9 TR Peak Velocity 344.1 cm/s TR Peak Gradient 47.4 mmHg TR Mean Velocity 284.4 cm/s TR Mean Gradient 32.9 mmHg TR Velocity Time Integral 100.1 cm Right Atrial Pressure 3.0 mmHg Pulmonary Artery Systolic Pressu 50.4 mmHg PV Peak Velocity 75.3 cm/s RV Acceleration Time 0.1 s RV Ejection Time 0.3 s RV AcT/ET 0.4 FINDINGS Left Ventricle Severely reduced LV systolic function visually estimated about 10 to 15%. With global hypokinesis. Mildly dilated left ventricle Right Ventricle Not well-visualized overall seems to be normal in size. Possible pacer wire in the right ventricle Right Atrium Normal in size Left Atrium Normal size Mitral Valve Grossly normal. Mild mitral regurgitation seen no mitral stenosis Aortic Valve Not well-visualized overall no significant or AI Tricuspid Valve Structurally normal with mild tricuspid regurgitation Pulmonic Valve Not well-visualized Pericardium No pericardial effusion Aorta Grossly normal IVC Not well seen CONCLUSIONS Yordy Zaidi MD (Electronically Signed) Final Date: 17 August 2023 17:09 S
--- NOTE | 2023-08-17 11:30 | PM.HP ---
Providers/Chief Complaint Admitting Physician: Kacie King MD Primary Care Provider: ANDRES Pettit Chief Complaint: WEAKNESS History of Present Illness Amrik Alexander is a 62 year old male with a past medical history of CHF, TAKE OFF WORKER-D in place, diabetes mellitus, cardiomyopathy, previous hospital admissions for acute pulmonary edema. Patient was in his usual state of health until 9 PM last night when he went to bed. He woke up the next morning and was unable to move the right side of his body. He noticed excess weakness in the right arm and right leg and also facial asymmetry. Came to the ER due to concerns for stroke. Unclear onset of symptoms therefore he was not a tPA candidate. NIH stroke scale was 8 upon admission. He is being admitted to the hospital for neuro stroke monitoring. Since this morning he feels that his right-sided weakness is improving. His speech is slurred but understandable. His facial droop appears to be improving as well. No headache. No visual disturbances. Denies any recent fever chills nausea vomiting diarrhea. Has a history of TAKE OFF WORKER-D infection approximately 3 to 4 years ago which necessitated removal of the existing device and placement of a new device on the right side. Review of Systems General: Reports: 10 or more systems reviewed and unremarkable except in HPI and below Const: Denies: fever(s), chills or body aches Eyes: Denies: change in vision, blurry vision or photophobia ENMT: Reports: hoarseness; Denies: throat pain, enlarged tonsils, odynophagia or nasal congestion Card: Denies: chest pain, palpitations, irregular heart rhythm, edema, swelling of feet/ankles, lightheadedness, pre-syncope, dyspnea on exertion or orthopnea Resp: Denies: dyspnea, productive cough, non-productive cough, wheezing, stridor, pain on inspiration, change in phlegm color, hemoptysis or chest congestion GI: Denies: abdominal pain, nausea, vomiting, hematemesis, coffee ground emesis, dysphagia, heartburn, diarrhea, constipation, GI cramping, change in stool character, hematochezia or melena : Denies: flank pain, dysuria, urinary frequency, urinary urgency, urinary hesitancy or hematuria Musc: Denies: neck pain, back pain, extremity pain, joint swelling, joint warmth or deformity Neuro: Denies: headache(s), numbness in extremities, weakness in extremities, sensory changes, difficulty walking, frequent falls, dizziness, vertigo, behavioral changes, Slurred speech present or seizure-like activity Psych: Denies: anxiety, depression, suicidal ideation or homicidal ideation Endo: Denies: polyuria, polydipsia, tired all the time, cold intolerance or hot flashes Surinder/Lymph: Denies: easy bruising or easy bleeding Medications/Allergies Home Medications Medication Instructions Recorded Confirmed Last Taken Type aspirin 325 mg tablet,delayed 325 mg PO QAM 12/20/19 08/17/23 04/11/23 History release (Peter Aspirin) blood-glucose meter (Blood Glucose #1 ea 07/06/20 08/17/23 Unknown Rx Monitoring kit) albuterol sulfate 90 mcg/actuation 2 puff inhalation Q6H PRN 05/20/22 08/17/23 04/06/23 Rx aerosol inhaler (ProAir HFA) shortness of breath or wheezing #18 grams nebulizer machine with tubing and #1 ea 09/09/22 08/17/23 Unknown Rx mask blood sugar diagnostic (Blood #100 ea 12/05/22 08/17/23 Unknown Rx Glucose Test strips) lancets 33 gauge (BD Ultra Fine #100 ea 12/05/22 08/17/23 Unknown Rx Lancets) [id number]-tkhjm acid-vit 1 tab PO DAILY 04/07/23 08/17/23 04/11/23 History K-lycop 400 mcg-20 mcg-370 mcg tablet (Men's 50 Plus Multivitamin) sacubitril 97 mg-valsartan 103 mg 1 tab PO BID #180 tabs 04/08/23 08/17/23 04/11/23 Rx tablet carvedilol 12.5 mg tablet 12.5 mg PO BID 90 days #180 tabs 04/22/23 08/17/23 Unknown Rx albuterol sulfate 2.5 mg/3 mL 2.5 mg (3 mL) inhalation QID PRN 06/10/23 08/17/23 Unknown Rx (0.083 %) solution for nebulization shortness of breath or wheezing #180 mL potassium citrate 10 mEq (1,080 20 meq PO BID #120 tabs 07/07/23 08/17/23 Unknown Rx mg) tablet,extended release diclofenac sodium 75 mg 75 mg PO BID PRN pain #30 tabs 07/24/23 08/17/23 Unknown Rx tablet,delayed release methocarbamol 750 mg tablet 750 mg PO Q6H PRN spasms #60 tabs 07/24/23 08/17/23 Unknown Rx allopurinol 300 mg tablet 300 mg PO QAM 08/17/23 08/17/23 Unknown History cetirizine 10 mg tablet (Allergy 10 mg PO BEDTIME 08/17/23 08/17/23 Unknown History Relief (cetirizine)) dapagliflozin propanediol 10 mg 10 mg PO QAM 08/17/23 08/17/23 Unknown History tablet dulaglutide 1.5 mg/0.5 mL 1.5 mg SUBCUT Q7D 08/17/23 08/17/23 Unknown History subcutaneous pen injector fluticasone propionate 50 2 spray intranasal DAILY PRN 08/17/23 08/17/23 Unknown History mcg/actuation nasal Allergy Symptoms spray,suspension (Flonase Allergy Relief) magnesium L-lactate 84 mg 84 mg PO QAM 08/17/23 08/17/23 Unknown History tablet,extended release omeprazole 40 mg capsule,delayed 40 mg PO BEDTIME 08/17/23 08/17/23 Unknown History release rosuvastatin 40 mg tablet 40 mg PO BEDTIME 08/17/23 08/17/23 Unknown History sertraline 100 mg tablet 100 mg PO QAM 08/17/23 08/17/23 Unknown History Allergies Allergy/AdvReac Type Severity Reaction Status Date / Time isosorbide Allergy unknown Verified 08/17/23 08:00 Penicillins AdvReac rash Verified 08/17/23 08:00 PFSH Acute PFSH: Medical History Bipolar II disorder C. difficile diarrhea Cardiac resynchronization therapy defibrillator (TAKE OFF WORKER-D) in place [employer] [address] [place], 07/11/2020 Cardiomyopathy Cataracts, bilateral CHF (congestive heart failure) Diabetes GERD (gastroesophageal reflux disease) Hemorrhoids Hypertension Mixed hyperlipidemia ALBERTO (obstructive sleep apnea) Osteoarthritis of hands, bilateral Pacemaker Psychiatric care Right ureteral calculus Urolithiasis Multi stone former, calcium oxalate mono and dihydrate. Also calcium phosphate. Multiple interventions including endoscopy with laser lithotripsy and ESWL. Metabolic treatment with potassium citrate Surgical History H/O esophagogastroduodenoscopy (02/27/21) gastritis, duodenitis History of carpal tunnel release of both wrists History of colonoscopy (02/27/21) descending colon polyp, hemorrhoids History of permanent cardiac pacemaker placement History of urethral stent Hx of cataract surgery Hx of lithotripsy Hx of shoulder surgery Hx of umbilical hernia repair Family History Grandfather CAD (coronary artery disease) Brother Cancer colon cancer Diabetes Mother Diabetes Father No problems noted. Other Hypertension Rheumatoid arthritis Social History Smoking and tobacco status: former smoker Quit status (tobacco): has quit using tobacco Year quit tobacco: 1999 Second hand smoke exposure: No Alcohol intake: former Year of sobriety/quit date alcohol: 1997 Substance/Drug Use: never Caregiver/support person: Yes Lives independently: Yes Household members: spouse Marital status: service: No Current occupational status: disabled Current gender identity: Male Special fernando needs: No Agree to transfusion: Yes Vitals/I&O/Wt Last Vital Signs Temp 98.0 F 08/17/23 12:19 Pulse 74 08/17/23 12:19 Resp 18 08/17/23 12:19 BP 154/73 08/17/23 12:19 Pulse Ox 96 08/17/23 12:19 O2 Del Method Room Air 08/17/23 12:19 Weight last 48 hrs Weight 122.47 kg Physical Exam Narrative: General: No acute distress, AO x3 HEENT: PERRLA, pupils bilaterally equal and reactive, pallors not present Chest: Normal vesicular breath sounds, no added sounds, equal good air entry bilaterally CVS: S1-S2 regular, no murmurs, no tachycardia, no gallops, no rubs Abdomen: Soft, nontender, no organomegaly, bowel sounds present Neuro: No focal deficits, no facial deformity, AO x3, RUE 3/5, LLE 3/5, facial droop+ Data 08/17/23 07:00 08/17/23 07:00 Other data: ?J?(c)??62??M??1960 ? Allergy/Adv: isosorbide, Penicillins (More??) Close Head/Neck CTA (Signed) Forrest Rodriguez - 08/17/[address] (Signed) Forrest Rodriguez - 08/17/23 Abdomen/Pelvis CT (Signed) Susy Asencio - 07/02/23 Myocardial Perfusion Scan Nuc Med (Signed) Joe Holder - 06/20/23 Chest X-Ray (Signed) JonathanGallo - 04/11/23 Foot X-Ray (Signed) Gallo Castillo - 04/10/23 Chest/Abdomen/Pelvis CT (Signed) Ricardo Quiñonez - 04/06/23 Chest X-Ray (Signed) Ricardo Quiñonez - 04/06/23 Hepatobiliary Scan Nuclear Medicine (Signed) Toni Bass - 04/02/23 Abdomen Ultrasound (Signed) Dunia Owens - 03/12/23 KUB X-Ray (Signed) Jimmy Roman Jr - 02/11/23 Chest X-Ray (Signed) Leo Dove - 01/04/23 Thoracic Spine X-Ray (Signed) Blake Emerson - 12/24/22 Lumbar Spine X-Ray (Signed) Blake Emerson - 12/24/22 Chest X-Ray (Signed) Neymar Sparks - 09/18/22 Chest X-Ray (Signed) Miguel Washburn - 09/09/22 Chest X-Ray (Signed) Bryan Pina - 09/07/22 Wrist X-Ray (Signed) Chencho Green - 07/22/[address] (Signed) Toni Bass - 06/13/22 Ribs X-Ray (Signed) Dunia Owens - 06/13/22 Chest X-Ray (Signed) Chencho Green - 05/31/22 Chest X-Ray (Signed) Cristiana Vargas - 05/20/22 Hip and Pelvis X-Ray (Signed) Blake Emerson - 03/10/22 KUB X-Ray (Signed) Jimmy Roman Jr - 02/11/[address] (Signed) Cristiana Vargas - 01/28/22 Shoulder Arthrogram (Signed) Cristiana Vargas - 01/28/[address] (Signed) Dnuia Owens - 01/17/22 Shoulder Arthrogram (Signed) Dunia Owens - 01/17/22 Shoulder X-Ray (Signed) Dunia Owens - 12/26/21 Shoulder X-Ray (Signed) Bryan Pina - 12/24/21 Chest X-Ray (Signed) KhangRicardo - 10/12/21 Cervical Spine X-Ray (Signed) Dunia Owens - 09/11/[address] (Signed) Toni Bass - 08/21/21 KUB X-Ray (Signed) Gallo Castillo - 08/10/21 KUB X-Ray (Signed) Miguel Washburn - 07/30/21 KUB X-Ray (Signed) Jimmy Roman Jr - 07/27/21 Abdomen/Pelvis CT (Signed) Pedro Pablo Mixon - 07/24/21 Hand X-Ray (Signed) Shukri Pratt - 11/27/20 Abdomen/Pelvis CT (Signed) Toni Bass - 10/30/20 KUB X-Ray (Signed) Bryan Pina - 10/17/20 Foot X-Ray (Signed) Dunia Owens - 06/21/20 Chest X-Ray (Signed) Toni Bass - 05/19/20 Chest X-Ray (Signed) Toni Bass - 03/30/20 Chest X-Ray (Signed) Toni Bass - 03/29/20 C-Arm Fluoroscopy (Signed) Isaias Alonzo - 03/29/20 C-Arm Fluoroscopy (Signed) Toni Bass - 03/29/20 C-Arm Fluoroscopy (Cancelled) Toni Bass - 03/29/20 Shoulder Arthrogram (Signed) Toni Bass - 02/25/[address] (Signed) Toni Bass - 02/25/20 Shoulder X-Ray (Signed) Toni Bass - 02/15/[address] (Signed) Cristiana Vargas - 01/11/20 Launch?Image [address] [address] [address] Scan Report Signed Patient: Amrik Alexander Unit #: [id number] : 1960 Age/Sex: 62 / M ADM Date: 08/17/23 Loc: ER Room/Bed: Attending Dr: Ordering Provider/Ordering MD: Andre Olvera DO Date of Service: 08/17/23 Procedure(s): CT angio headneck* [id number] Accession Number(s): [id number] Report Number: [id number] PROCEDURE INFORMATION: Exam: CTA Head With Contrast, Arteriography Exam date and time: 08/17/2023 6:50 AM Age: 62 years old Clinical indication: Headache and speech disturbance and paralysis, transient of limb; Slurred speech; Additional info: Poss CVA TECHNIQUE: Imaging protocol: Computed tomographic angiography of the head with contrast. Exam focused on the arteries. 3D rendering (Not supervised by radiologist): MIP and/or 3D reconstructed images were created by the technologist. Radiation optimization: All CT scans at this facility use at least one of these dose optimization techniques: automated exposure control; mA and/or kV adjustment per patient size (includes targeted exams where dose is matched to clinical indication); or iterative reconstruction. Contrast material: OMNI 350; Contrast volume: 100 ml; Contrast route: INTRAVENOUS (IV);? REPORTING DATA: Count of CT and Cardiac NM exams in prior 12 months: This patient has received 3 known CTs and 0 known cardiac nuclear medicine studies in the 12 months prior to the current study. COMPARISON: CT head wo con* [id number] 08/17/2023 6:48 AM RADIATION DOSE METRICS: Total DLP (mGy-cm): 645.41 FINDINGS: ANTERIOR CIRCULATION: Right internal carotid artery: Intracranial segment is patent with no significant stenosis. No aneurysm. Right middle cerebral artery: No occlusion or significant stenosis. No aneurysm.? Right anterior cerebral artery: No occlusion or significant stenosis. No aneurysm.? Left internal carotid artery: Intracranial segment is patent with no significant stenosis. No aneurysm. Left middle cerebral artery: No occlusion or significant stenosis. No aneurysm.? Left anterior cerebral artery: No occlusion or significant stenosis. No aneurysm.? POSTERIOR CIRCULATION: Right vertebral artery: No occlusion or significant stenosis. No aneurysm.? Left vertebral artery: No occlusion or significant stenosis. No aneurysm.? Basilar artery: No occlusion or significant stenosis. No aneurysm. Right posterior cerebral artery: No occlusion or significant stenosis. No aneurysm.? Left posterior cerebral artery: No occlusion or significant stenosis. No aneurysm.? 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 Cerebral ventricles: No ventriculomegaly. Orbital cavities: The patient is post bilateral cataract surgery. Paranasal sinuses: Minor mucosal thickening is noted within the right frontal recess and sphenoid sinus. Bones/joints: Unremarkable. No acute fracture. Soft tissues: Unremarkable. PROCEDURE INFORMATION: Exam: CTA Neck With Contrast Exam date and time: 08/17/2023 6:50 AM Age: 62 years old Clinical indication: Headache and speech disturbance and paralysis, transient of limb; Slurred speech; Additional info: Poss CVA TECHNIQUE: Imaging protocol: Computed tomographic angiography of the neck with contrast. 3D rendering (Not supervised by radiologist): MIP and/or 3D reconstructed images were created by the technologist. Radiation optimization: All CT scans at this facility use at least one of these dose optimization techniques: automated exposure control; mA and/or kV adjustment per patient size (includes targeted exams where dose is matched to clinical indication); or iterative reconstruction. Contrast material: OMNI 350; Contrast volume: 100 ml; Contrast route: INTRAVENOUS (IV);? REPORTING DATA: Count of CT and Cardiac NM exams in prior 12 months: This patient has received 3 known CTs and 0 known cardiac nuclear medicine studies in the 12 months prior to the current study. COMPARISON: CT cervical spin wo con* [id number] 08/21/2021 11:37 AM RADIATION DOSE METRICS: Total DLP (mGy-cm): 645.41 FINDINGS: There is mild atheromatous calcific plaque noted at the carotid bulbs, left greater than right with no significant stenosis. Right common carotid artery: No stenosis. No dissection or occlusion. Right internal carotid artery: No stenosis of the extracranial segment. No dissection or occlusion. Right external carotid artery: No occlusion or stenosis of the origin.? Left common carotid artery:? No stenosis.? No dissection or occlusion. Left internal carotid artery: No stenosis of the extracranial segment. No dissection or occlusion. Left external carotid artery: No occlusion or stenosis of the origin.? Right vertebral artery: No stenosis. No dissection or occlusion. Left vertebral artery: No stenosis. No dissection or occlusion. Soft tissues: Normal. No significant soft tissue swelling. Bones/joints: No acute fracture. CT/CT angio headneck* [id number] IMPRESSION: No intracranial large vessel occlusion. ? IMPRESSION: No evidence for cervical carotid stenosis. REFERENCES: NASCET CRITERIA. The degree of stenosis in the cervical segment of the internal carotid artery is based on NASCET criteria. Normal is no stenosis. Mild is less than 50% stenosis. Moderate is 50-69% stenosis. Severe is 70% to 99% stenosis. Total occlusion is no detectable patent lumen. Launch?[facility] [facility] [place] [address] CT Scan Report Signed Patient: Amrik Alexander Unit #: [id number] : 1960 Age/Sex: 62 / M ADM Date: 08/17/23 Loc: ER Room/Bed: Attending Dr: Ordering Provider/Ordering MD: Andre Olvera DO Date of Service: 08/17/23 Procedure(s): CT head wo con* [id number] Accession Number(s): [id number] Report Number: [id number] PROCEDURE INFORMATION: Exam: CT Head Without Contrast Exam date and time: 08/17/2023 6:48 AM Age: 62 years old Clinical indication: Hemiplegia and hemiparesis and numbness / parasthesia; Right side, dominance unknown; Additional info: Poss CVA TECHNIQUE: Imaging protocol: Computed tomography of the head without contrast. Radiation optimization: All CT scans at this facility use at least one of these dose optimization techniques: automated exposure control; mA and/or kV adjustment per patient size (includes targeted exams where dose is matched to clinical indication); or iterative reconstruction. REPORTING DATA: Count of CT and Cardiac NM exams in prior 12 months: This patient has received 3 known CTs and 0 known cardiac nuclear medicine studies in the 12 months prior to the current study. COMPARISON: CT cervical spin wo con* [id number] 08/21/2021 11:37 AM RADIATION DOSE METRICS: Total DLP (mGy-cm): 1066.18 FINDINGS: Brain: There is a chronic infarct in the inferior right cerebellar hemisphere. There is no mass effect, midline shift, acute hemorrhage, extra-axial fluid collection or acute lobar infarct noted. Cerebral ventricles: No ventriculomegaly. Paranasal sinuses: There is mild mucosal thickening noted within the right frontal recess and sphenoid sinus. Mastoid air cells: Visualized mastoid air cells are well aerated. Orbital cavities: The patient is post bilateral cataract surgery. Bones/joints: Unremarkable. No acute fracture. Soft tissues: Unremarkable. CT/CT head wo con* [id number] IMPRESSION: No acute intracranial process. A&P Assessment and plan (1) Cerebrovascular accident: Admit the patient to [facility] for close neuro monitoring he is not a tPA candidate due to unknown onset of symptoms Continue telemetry monitoring on the unit to evaluate for underlying arrhythmias. CT head unremarkable CTA head and neck without any major vessel occlusion. Echocardiogram ordered and pending Continue aspirin 325 mg daily Atorvastatin 40 mg daily Continue enteresto starting tomorrow allowing for permissive HTN today PT OT speech therapy assessment (2) Cardiac resynchronization therapy defibrillator (TAKE OFF WORKER-D) in place: D?c IVF fluids to minimize risk of hypervolemia Attestations Medical Necessity Statement*: > 2 midnight admission is anticipated fro stroke, close neuro monitoring Coding Level of Care Code Acute Code for Chg Fwd Moderate MDM includes number and complexity of problems actively addressed during encounter, amount and/or complexity of data reviewed/ordered and described risk of complication, morbidity or mortality of management as documented Diagnoses Cerebrovascular accident I63.9 Cardiac resynchronization therapy defibrillator (TAKE OFF WORKER-D) in place Z95.810
[2023-08-17] MEDS: sodium chloride 0.9% 1,000 ML 100 ML IV (12:35)
[2023-08-17] MEDS: aspirin 81 mg EC Tablet PO (12:36)
[2023-08-17] MEDS: perflutren protein-a microsphr 0.22 mg/mL SDV 3 mL IV (13:29)
[2023-08-17 17:16] LABS: Glucose Point of Care 182 mg/dL (70-110)
[2023-08-17] MEDS: carvedilol 12.5 mg Tablet PO (17:32)
[2023-08-17] MEDS: insulin lispro 100 unit/1 mL SUBCUT (17:32)
[2023-08-17 20:50] LABS: Glucose Point of Care 138 mg/dL (70-110)
[2023-08-17] MEDS: atorvastatin 40 mg Tablet 80 MG PO (20:52)
[2023-08-17] MEDS: pantoprazole DR 40 mg Tablet PO (20:53)
[2023-08-18] VITALS (7 sets, daily range): BP systolic 108–132; BP diastolic 62–85; PULSE 66–75; RESP 18–19; TEMP 36.3–36.7; O2SAT 96–97
[2023-08-18 04:54] LABS: Basophils % 0.3 %; Eosinophils # 0.1 10^3/uL (0.0-0.8); Eosinophils % 0.6 %; Hematocrit 46.6 % (37-53); Lymphocytes # 2.3 10^3/uL (0.8-4.8); Lymphocytes % 19.9 %; Mean Corpuscular HGB Conc 34.1 g/dL (30-55); Mean Corpuscular Hemoglobin 31.4 pg (27-33); Mean Corpuscular Volume 92.1 fl (82-101); Mean Platelet Volume 11.4 fL (7.4-10.4); Monocytes # 0.7 10^3/uL (0.2-0.9); Monocytes % 6.4 %; Neutrophils # 8.31 10^3/uL (1.8-7.7); Neutrophils % 72.3 %; Nucleated Red Blood Cells % 0 %; Platelet Count 169 10^3/cmm (157-399); Red Blood Count 5.06 10^6/uL (3.85-5.65); Red Cell Distribution Width 14.5 % (12.1-15.1)
[2023-08-18 05:11] LABS: Estmated Average Glucose 189; Hemoglobin A1C 8.2 % (4.0-6.0)
[2023-08-18 05:12] LABS: Alanine Aminotransferase 24 U/L (0-41); Albumin Level 3.6 g/dL (3.5-5.2); Alkaline Phosphatase 92 U/L (40-130); Anion Gap 12.8 (5-19); Aspartate Amino Transferase 17 U/L (0-40); Blood Urea Nitrogen 15 mg/dL (8-23); Calcium 8.7 mg/dL (8.5-10.5); Carbon Dioxide 24 mmol/L (22-29); Chloride 101 mmol/L (98-107); Chol HDL Ratio 4.55 mg/dL (1.0-5.00); Cholesterol 150 mg/dL (0-200); Globulin 2.3 g/dL (1.3-4.6); Glucose 145 mg/dL (65-115); HDL Cholesterol 33 mg/dL (60-100); LDL Cholesterol Calculated 86 mg/dL (50-129); LDL HDL Ratio 2.61 RATIO (0.00-3.22); Osmolality Calculated 281 mOsm/kg (285-295); Potassium 3.8 mmol/L (3.5-5.1); Sodium 134 mmol/L (136-145); Total Bilirubin 0.5 mg/dL (0.15-1.2); Total Protein 5.9 g/dL (6.6-8.7); Triglycerides 153 mg/dL (0-150)
[2023-08-18] MEDS: aspirin 325 mg EC Tablet PO (05:43)
[2023-08-18] MEDS: sertraline 100 mg Tablet PO (05:43)
[2023-08-18] MEDS: allopurinol 300 mg Tablet PO (05:43)
[2023-08-18] MEDS: magnesium lactate 84 mg Tablet PO (05:43)
[2023-08-18 06:50] LABS: Glucose Point of Care 169 mg/dL (70-110)
[2023-08-18] MEDS: carvedilol 12.5 mg Tablet PO (09:27)
[2023-08-18] MEDS: insulin lispro 100 unit/1 mL SUBCUT (09:27)
[2023-08-18 11:08] LABS: Glucose Point of Care 125 mg/dL (70-110)
--- NOTE | 2023-08-18 14:12 | P.DS_ITS ---
Discharge Providers Date of Admission: 08/17/23 11:23 Date of Discharge: August 18, 2023 Attending Provider at Admission: Kacie King MD Attending Provider at Discharge: Milton Skinner MD Primary Care Provider: ANDRES Pettit Diagnoses at Discharge Discharge Diagnosis (1) Cerebrovascular accident: Status: Acute (2) Cardiac resynchronization therapy defibrillator (INTERNAL CONSULTANT-D) in place: Status: Acute Permanent problem details: [email or web address] Dr. 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 He was deemed to not be a tPA candidate. Head CT as well as head/neck CTA was negative for acute findings. Dysphagia was considered. He was evaluated by speech therapy and cleared for diet. Symptoms improved with some mild residual facial droop. Patient adamant to be discharged. Patient already on statin. He was rotated from aspirin 325 mg daily to dual antiplatelet treatment with aspirin 81 mg and Plavix 75 mg daily for the next 21 days. Patient may return to monotherapy with aspirin afterwards. He is to follow up with his primary care physician for further care. Physical Exam Narrative: General: Patient is awake and alert. Pleasant. Head: Facial droop is present. Neck: No JVD. Cardiovascular: RRR. No gallops. No murmurs. Bilateral pedal edema. Lungs: Breath sounds are slightly diminished in bilateral bases, no use of accessory muscles, no crackles or wheezes. Skin: No jaundice. No rashes. Abdomen: Normal bowel sounds, abdomen soft and nontender. Extremities: No cyanosis or clubbing. Musculoskeletal: Facial droop, otherwise CN II-XII grossly intact. Moves all 4 extremities. Discharge Data Studies Completed and Pending Completed Studies During Hospitalization Category Date Time Status CT angio headneck* [id number] Stat Cat Scan 08/17/23 06:[address] head wo con* [id number] Stat Cat Scan 08/17/23 06:45 Completed CV. echo wo/w contrast [id number] Routine Ultrasound 08/17/23 11:23 Completed Radiology Impressions Head CT 08/17/23 06:45 IMPRESSION: No acute intracranial process. Head/Neck CTA 08/17/23 06:45 IMPRESSION: No intracranial large vessel occlusion. IMPRESSION: No evidence for cervical carotid stenosis. REFERENCES: NASCET CRITERIA. The degree of stenosis in the cervical segment of the internal carotid artery is based on NASCET criteria. Normal is no stenosis. Mild is less than 50% stenosis. Moderate is 50-69% stenosis. Severe is 70% to 99% stenosis. Total occlusion is no detectable patent lumen. Laboratory Results WBC 11.50 10^3/uL (3.29-11.43) H 08/18/23 04:10 RBC 5.06 10^6/uL (3.85-5.65) 08/18/23 04:10 Hgb 15.90 g/dL (11.27-16.99) 08/18/23 04:10 Hct 46.6 % (37-53) 08/18/23 04:10 MCV 92.1 fl (82-101) 08/18/23 04:10 MCH 31.4 pg (27-33) 08/18/23 04:10 MCHC 34.1 g/dL (30-55) 08/18/23 04:10 RDW 14.5 % (12.1-15.1) 08/18/23 04:10 Plt Count 169 10^3/cmm (157-399) 08/18/23 04:10 MPV 11.4 fL (7.4-10.4) H 08/18/23 04:10 Neut % (Auto) 72.3 % 08/18/23 04:10 Lymph % (Auto) 19.9 % 08/18/23 04:10 [place] % (Auto) 6.4 % 08/18/23 04:10 Eos % (Auto) 0.6 % 08/18/23 04:10 Baso % (Auto) 0.3 % 08/18/23 04:10 Neut # (Auto) 8.31 10^3/uL (1.8-7.7) H 08/18/23 04:10 Lymph # (Auto) 2.3 10^3/uL (0.8-4.8) 08/18/23 04:10 [place] # (Auto) 0.7 10^3/uL (0.2-0.9) 08/18/23 04:10 Eos # (Auto) 0.1 10^3/uL (0.0-0.8) 08/18/23 04:10 Baso # (Auto) 0.0 10^3/uL (0.0-0.1) 08/18/23 04:10 Nucleated RBC % (auto) 0 % 08/18/23 04:10 Nucleated RBCs # 0.0 /100WBC 08/18/23 04:10 Sodium 134 mmol/L (136-145) L 08/18/23 04:10 Potassium 3.8 mmol/L (3.5-5.1) 08/18/23 04:10 Chloride 101 mmol/L (98-107) 08/18/23 04:10 Carbon Dioxide 24 mmol/L (22-29) 08/18/23 04:10 Anion Gap 12.8 (5-19) 08/18/23 04:10 BUN 15 mg/dL (8-23) 08/18/23 04:10 Creatinine 0.8 mg/dL (0.7-1.2) 08/18/23 04:10 GFR Calculation 98.0 mL/min (90-130) 08/18/23 04:10 Glucose 145 mg/dL (65-115) H 08/18/23 04:10 POC Glucose 125 mg/dL (70-110) H 08/18/23 11:00 Estimat Average Glucose 189 08/18/23 04:10 Hemoglobin A1c 8.2 % (4.0-6.0) H 08/18/23 04:10 Calculated Osmolality 281 mOsm/kg (285-295) L 08/18/23 04:10 Calcium 8.7 mg/dL (8.5-10.5) 08/18/23 04:10 Total Bilirubin 0.5 mg/dL (0.15-1.2) 08/18/23 04:10 AST 17 U/L (0-40) 08/18/23 04:10 ALT 24 U/L (0-41) 08/18/23 04:10 Alkaline Phosphatase 92 U/L (40-130) 08/18/23 04:10 Total Protein 5.9 g/dL (6.6-8.7) L 08/18/23 04:10 Albumin 3.6 g/dL (3.5-5.2) 08/18/23 04:10 Globulin 2.3 g/dL (1.3-4.6) 08/18/23 04:10 Triglycerides 153 mg/dL (0-150) H 08/18/23 04:10 Cholesterol 150 mg/dL (0-200) 08/18/23 04:10 LDL Cholesterol, Calc 86 mg/dL (50-129) 08/18/23 04:10 HDL Cholesterol 33 mg/dL (60-100) L 08/18/23 04:10 LDL/HDL Ratio 2.61 RATIO (0.00-3.22) 08/18/23 04:10 Cholesterol/HDL Ratio 4.55 mg/dL (1.0-5.00) 08/18/23 04:10 Procedures Performed None Vitals Last Vital Signs Temp 97.6 F 08/18/23 11:15 Pulse 75 08/18/23 11:15 Resp 18 08/18/23 11:15 BP 123/76 08/18/23 11:15 Pulse Ox 97 08/18/23 11:15 O2 Del Method Room Air 08/18/23 11:15 Discharge Plan Discharge Patient Disposition: Home Condition: Stable Prescriptions: New aspirin 81 mg capsule 81 mg PO DAILY Qty: 30 1RF clopidogrel [Plavix] 75 mg tablet 75 mg PO DAILY 21 Days Qty: 21 0RF Continued (DME) Blood Glucose Test Strip See Rx Instructions .ROUTE .MEDSUPPLY Qty: 100 11RF Rx Instructions: Check blood sugar 2 x daily and prn (DME) lancets [BD Ultra Fine Lancets] 33 gauge misc See Rx Instructions .ROUTE .MEDSUPPLY Qty: 100 11RF Rx Instructions: check blood sugar twice daily and as needed carvedilol 12.5 mg tablet 12.5 mg PO BID 90 Days Qty: 180 1RF albuterol sulfate [ProAir HFA] 90 mcg/actuation HFA aerosol inhaler 2 puff INHALATION Q6H PRN (Reason: shortness of breath or wheezing) Qty: 18 2RF (DME) nebulizer machine with tubing and mask See Rx Instructions .Route .MEDSUPPLY Qty: 1 0RF Rx Instructions: As directed diclofenac sodium 75 mg tablet,delayed release (DR/EC) 75 mg PO BID PRN (Reason: pain) Qty: 30 0RF (DME) blood-glucose meter [Blood Glucose Monitoring] Kit See Rx Instructions .ROUTE .MEDSUPPLY Qty: 1 0RF Rx Instructions: As directed; to test 2 x day and prn sacubitril-valsartan 97-103 mg tablet 1 tab PO BID Qty: 180 3RF albuterol sulfate 2.5 mg /3 mL (0.083 %) solution for nebulization 2.5 mg inhalation QID PRN (Reason: shortness of breath or wheezing) Qty: 180 5RF potassium citrate 10 mEq (1,080 mg) tablet extended release 20 meq PO BID Qty: 120 2RF methocarbamol 750 mg tablet 750 mg PO Q6H PRN (Reason: spasms) Qty: 60 0RF Men's 50 Plus Multivitamin 400-20-370 mcg Tablet 1 tab PO DAILY Allergy Relief (cetirizine) 10 mg tablet 10 mg PO BEDTIME sertraline 100 mg tablet 100 mg PO QAM omeprazole 40 mg capsule,delayed release(DR/EC) 40 mg PO BEDTIME allopurinol 300 mg tablet 300 mg PO QAM Flonase Allergy Relief 50 mcg/actuation spray,suspension 2 spray intranasal DAILY PRN (Reason: Allergy Symptoms) Rx Instructions: administer into each nostril rosuvastatin 40 mg tablet 40 mg PO BEDTIME magnesium L-lactate 84 mg tablet extended release 84 mg PO QAM dapagliflozin propanediol 10 mg tablet 10 mg PO QAM Trulicity 1.5 mg/0.5 mL pen injector 1.5 mg SUBCUT Q7D Rx Instructions: ON TUESDAYS Discontinued aspirin [Peter Aspirin] 325 mg tablet,delayed release (DR/EC) 325 mg PO QAM Hold Instructions: Resume on 12/08/21. Discharge Orders: Discharge Order (Routine); Ordered 08/18/23 Ordered By: Milton Skinner Referrals: Lucrecia Blandon FNP [Primary Care Provider] - 4-7 days Discharge Diet: Advance as tolerated, Usual diet, Cardiac, Low Salt and Low Cholesterol Discharge Activity: Resume usual activity and Increase activity as tolerated Patient Instructions: Opioid Safety Activity Restrictions/Additional Instructions: 1. Increase activity as tolerated. 2. Take medications as prescribed. 3. Take baby aspirin and Plavix for 21 days then aspirin daily 4. Follow up with PCP. Discharge Attestations Time Spent in Discharge Care*: greater than 30 min Status at Discharge: Cognitive status at discharge: cognitively intact , Behavioral status at discharge: cooperative , Quality Metrics Clinical Quality Measures [ No reported AMI, CVA or VTE this stay] Coding Level of Care Code Acute Code for Chg Fwd Diagnoses Cerebrovascular accident I63.9 Cardiac resynchronization therapy defibrillator (INTERNAL CONSULTANT-D) in place Z95.810
== END 2023-08-18 16:00 | disposition home or self-care (01) | DRG 65 ==
LOC: ER 08:17 → MEDSURG 10:51
PROVIDERS: Admitting Provider Student in an Organized Health Care Education/Training Program; Emergency Provider Family Medicine; PCP Nurse Practitioner Family; Visit Provider Internal Medicine
DX: I63.9 Cerebral infarction, unspecified (principal); F31.81 Bipolar II disorder; G81.91 Hemiplegia, unspecified affecting right dominant side; I50.22 Chronic systolic (congestive) heart failure; I42.9 Cardiomyopathy, unspecified; R29.810 Facial weakness; R13.10 Dysphagia, unspecified; R47.81 Slurred speech; R29.708 NIHSS score 8; I11.0 Hypertensive heart disease with heart failure; E11.9 Type 2 diabetes mellitus without complications; J44.9 Chronic obstructive pulmonary disease, unspecified; Z79.85 Long-term (current) use of injectable non-insulin antidiabetic drugs; Z95.810 Presence of automatic (implantable) cardiac defibrillator; K21.9 Gastro-esophageal reflux disease without esophagitis; G47.33 Obstructive sleep apnea (adult) (pediatric); E78.2 Mixed hyperlipidemia; M19.042 Primary osteoarthritis, left hand; M19.041 Primary osteoarthritis, right hand; Z87.891 Personal history of nicotine dependence; Z86.73 Personal history of transient ischemic attack (TIA), and cerebral infarction without residual deficits; Z79.82 Long term (current) use of aspirin
CPT/HCPCS: 36415; 36416; 70450; 70496; 70498; 80053; 80061; 82962; 83036; 85025; 92523; 92610; 93005; 94660; 96372; 97161; 97165; 97530; 99285; C8929; J1815; J7030; Q9956; Q9967

== ENCOUNTER → 2023-09-03 09:25 | Outpatient (BNVA) | payer MEDICAID, SELFPAY | PROVIDERS: PCP Nurse Practitioner Family; Referring Provider Nurse Practitioner Family; Visit Provider Anesthesiology Pain Medicine | DX: G89.29 Other chronic pain; M12.812 Other specific arthropathies, not elsewhere classified, left shoulder; M47.22 Other spondylosis with radiculopathy, cervical region; E11.42 Type 2 diabetes mellitus with diabetic polyneuropathy; M47.817 Spondylosis without myelopathy or radiculopathy, lumbosacral region; M51.16 Intervertebral disc disorders with radiculopathy, lumbar region | CPT/HCPCS: 99205; 99215 ==

== ENCOUNTER 2023-09-15 17:03 | Outpatient (CLI) | payer MEDICAID, SELFPAY ==
--- NOTE | 2023-09-15 17:30 | CT_ITS ---
WS: [id number] CT LUMBAR SPINE, noncontrast. HISTORY: M54.16 - Radiculopathy, lumbar region TECHNIQUE: Contiguous 2.0 mm axial imaging are performed. Sagittal and coronal reformats are submitte d and reviewed. All CT scans at [facility] use at least one of these dose optimization techni ques: automated exposure control; mA and/or kV adjustment per patient size (includes targeted exams w here dose is matched to clinical indication); or iterative reconstruction. IV contrast: None DLP: 1316.19 mGy.cm COMPARISON: 01/11/2020 Slight increase in the lumbar lordosis. No fracture. Sclerosis involving the S1 segment similar to th e prior study. L1-2: Normal. L2-3: Mild annular disc bulging. Shallow RIGHT foramen disc protrusion. Mild RIGHT foramen narrowing. L3-4: Mild annular disc bulging encroaching upon the ventral thecal sac. Very mild facet joint arthri tis. Mild central, bilateral subarticular recess and foraminal stenosis. L4-5: Mild annular disc bulging with moderate facet disease. There is degenerative air in the facet j oints. Increased density adjacent to the medial RIGHT facet joint extending into the thecal sac is pr obably a complex facet joint cyst. New since the prior study. This does appear to be contacting the R IGHT traversing L5 nerve root. This small mass measures 5 x 7 mm. Moderate central, bilateral subarti cular recess and mild foraminal stenosis. L5-S1: Mild annular disc bulging with a shallow RIGHT foramen disc protrusion. No stenosis. Moderate calcified plaque within the abdominal aorta. No aneurysm. Visualized retroperitoneum is nega tive. IMPRESSION: 1. L4-5: Progression of stenosis and degenerative facet joint arthritis since 01/11/2020. Moderate cent ral, bilateral subarticular recess and mild foraminal stenosis. 2. High density mass extending into the central canal at L4-5 associated with the facet joint. Favor this is probably a hemorrhagic facet joint cyst measuring 5 x 7 mm with contact most significant on t he traversing RIGHT L5 nerve root. 3. L2-3: Shallow RIGHT foraminal disc protrusion with foramen stenosis. 4. L3-4 mild central, bilateral subarticular recess and foraminal stenosis.
== END 2023-09-15 17:04 | disposition home or self-care (01) ==
PROVIDERS: PCP Nurse Practitioner Family; Visit Provider Anesthesiology Pain Medicine
DX: M47.26 Other spondylosis with radiculopathy, lumbar region (principal); M48.061 Spinal stenosis, lumbar region without neurogenic claudication; M51.26 Other intervertebral disc displacement, lumbar region
CPT/HCPCS: 72131

== ENCOUNTER → 2023-09-16 14:06 | Outpatient (BNVA) | payer MEDICAID, SELFPAY | PROVIDERS: PCP Nurse Practitioner Family; Visit Provider Anesthesiology Pain Medicine | DX: M54.16 Radiculopathy, lumbar region (principal); G89.29 Other chronic pain | CPT/HCPCS: 64483; 64484; J1100; J3490 ==

== ENCOUNTER → 2023-10-07 10:37 | Outpatient (BNVA) | payer MEDICAID, SELFPAY | PROVIDERS: PCP Nurse Practitioner Family; Visit Provider Anesthesiology Pain Medicine | DX: G89.29 Other chronic pain; M12.812 Other specific arthropathies, not elsewhere classified, left shoulder; M47.22 Other spondylosis with radiculopathy, cervical region; M47.817 Spondylosis without myelopathy or radiculopathy, lumbosacral region; M51.16 Intervertebral disc disorders with radiculopathy, lumbar region; M47.816 Spondylosis without myelopathy or radiculopathy, lumbar region; E11.42 Type 2 diabetes mellitus with diabetic polyneuropathy | CPT/HCPCS: 99214 ==

== ENCOUNTER → 2023-10-08 11:33 | Outpatient (BNVA) | payer MEDICAID, SELFPAY | PROVIDERS: PCP Nurse Practitioner Family; Visit Provider Nurse Practitioner Family | DX: J06.9 Acute upper respiratory infection, unspecified (principal); J32.9 Chronic sinusitis, unspecified | CPT/HCPCS: 87400; 87635 ==

== ENCOUNTER → 2023-10-27 12:58 | Outpatient (BNVA) | payer SELFPAY | PROVIDERS: PCP Nurse Practitioner Family; Visit Provider Internal Medicine Cardiovascular Disease | DX: R06.02 Shortness of breath (principal); I10 Essential (primary) hypertension; I42.0 Dilated cardiomyopathy; E78.2 Mixed hyperlipidemia; Z95.810 Presence of automatic (implantable) cardiac defibrillator; Z86.73 Personal history of transient ischemic attack (TIA), and cerebral infarction without residual deficits | CPT/HCPCS: 36415; 80048; 83880; 99214 ==

== ENCOUNTER → 2023-11-14 09:17 | Outpatient (BNVA) | payer MEDICAID, SELFPAY ==
[2023-11-11 08:10] VITALS: BP 110/60; BMI 42.3
== END ==
PROVIDERS: PCP Nurse Practitioner Family; Visit Provider Nurse Practitioner
DX: M19.011 Primary osteoarthritis, right shoulder (principal); Z71.89 Other specified counseling
CPT/HCPCS: 20610; J1100; J2795; J3301

== ENCOUNTER 2023-11-18 11:03 | Inpatient (IN) | payer MEDICAID, SELFPAY ==
[2023-11-11 08:10] VITALS: BP 110/60; BMI 42.3
[2023-11-18] VITALS (14 sets, daily range): BP systolic 119–146; BP diastolic 76–99; PULSE 75–97; RESP 15–25; TEMP 36.2–36.6; O2SAT 92–100; BMI 42.4
--- NOTE | 2023-11-18 11:16 | XR_ITS ---
WS: [id number] PORTABLE CHEST HISTORY: chest pain COMPARISON: 04/11/2023 RIGHT subclavian pacer. Small portion of the RIGHT lung is being obscured by the pacer. Lungs are christiano ar. Normal vascularity. Lungs are clear and well expanded. No pleural effusion or pneumothorax. Cardiac size: Mildly enlarged cardiac silhouette. Mediastinum/Aorta: Normal mediastinum. Degenerative changes involving the LEFT humeral head. Resection of the distal LEFT clavicle. IMPRESSION: RIGHT subclavian cardiac pacer. No pneumonia.
--- NOTE | 2023-11-18 11:16 | ECG_ITS ---
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 Measurements Intervals [place] Rate: 86 P: 67 DC: 181 QRS: 217 QRSD: 181 T: 44 QT: 427 QTc: 512 Interpretive Statements ELECTRONIC ATRIAL PACEMAKER ELECTRONIC VENTRICULAR PACEMAKER Frequent PVCs ABNORMAL RHYTHM ECG Compared to ECG 08/17/2023 07:17:49 The PVCs appear to be new Electronically Signed On 11-18-2023 21:39:41 CURATOR OF EDUCATION by Joe Holder M.D. [id number]
[2023-11-18 11:46] LABS: Basophils % 0.1 %; Eosinophils % 0.2 %; Hematocrit 47.9 % (37-53); Lymphocytes # 2.1 10^3/uL (0.8-4.8); Lymphocytes % 14.8 %; Mean Corpuscular HGB Conc 35.1 g/dL (30-55); Mean Corpuscular Hemoglobin 31.8 pg (27-33); Mean Corpuscular Volume 90.5 fl (82-101); Mean Platelet Volume 11.7 fL (7.4-10.4); Monocytes % 6.7 %; Neutrophils % 77.4 %; Nucleated Red Blood Cells % 0 %; Platelet Count 196 10^3/cmm (157-399); Red Blood Count 5.29 10^6/uL (3.85-5.65); Red Cell Distribution Width 12.8 % (12.1-15.1); White Blood Count 14.23 10^3/uL (3.29-11.43)
--- NOTE | 2023-11-18 11:54 | ED_ITS ---
HPI - Chest Pain 2 General: Chief Complaint: Chest Pain Stated Complaint: Chesp pain, Sob Time Seen by Provider: 11/18/23 11:07 Source: patient Mode of arrival: ambulatory History of Present Illness: 60-year-old male presents emergency room with complaint of chest pain. Patient sudden onset of chest pain shortness of breath while he was in his shop trying to start his woodstove. He has a history of pacemaker and a history of cardiomyopathy with congestive heart failure he was given aspirin and nitro in route he had several episodes of vomiting. He has no chest discomfort at this time. He has not been known to have any coronary artery disease in the past. Recent stress test done in June 2023 showed some areas of reversibility suggesting scarring and some danny-infarct infarct ischemia in the RCA territory. He had a ejection fraction at that time of 18%. Reviewing the chart it does not look like he ever had a follow-up visit with cardiology after there was one scheduled but looks like he canceled. MD complaint: chest pain Pertinent past history: other (Cardiomyopathy) Onset (ago): minute(s) Timing of current episode: episodic Prior episodes: Yes Onset: during exertion (Mild exertion) Pain location: left chest Relieving factors: nitroglycerin Exacerbating factors: nothing Associated symptoms: Reports dyspnea, nausea and vomiting; Deny abdominal pain, diaphoresis, fever(s), leg edema, palpitations, sense of impending doom, syncope or other Treatment prior to arrival: aspirin, nitroglycerin and oxygen Review of Systems 2 Const: Denies: fever(s) or diaphoresis Card: Reports: chest pain; Denies: palpitations or syncope Resp: Reports: dyspnea GI: Reports: nausea and vomiting; Denies: abdominal pain : Denies: dysuria, urinary frequency or urinary urgency Musc: Denies: neck pain or back pain Skin/Breast: Denies: rash PFSH ED 2 PFSH: Medical History COPD (chronic obstructive pulmonary disease) COVID-19 Wound infection following procedure Cardiac resynchronization therapy defibrillator (UPPER SHAPER-D) in place [employer] Dr. iMlan, 07/11/2020 GERD (gastroesophageal reflux disease) ALBERTO (obstructive sleep apnea) C. difficile diarrhea Cataracts, bilateral CHF (congestive heart failure) Urolithiasis Multi stone former, calcium oxalate mono and dihydrate. Also calcium phosphate. Multiple interventions including endoscopy with laser lithotripsy and ESWL. Metabolic treatment with potassium citrate Hemorrhoids Psychiatric care Right ureteral calculus Osteoarthritis of hands, bilateral Cardiomyopathy Mixed hyperlipidemia Pacemaker Hypertension Diabetes Bipolar II disorder Surgical History S/P epidural steroid injection Status post hemorrhoidectomy Hx of umbilical hernia repair Hx of lithotripsy History of urethral stent H/O esophagogastroduodenoscopy (02/27/21) gastritis, duodenitis History of colonoscopy (02/27/21) descending colon polyp, hemorrhoids History of carpal tunnel release of both wrists History of permanent cardiac pacemaker placement Hx of cataract surgery Hx of shoulder surgery Family History Grandfather CAD (coronary artery disease) Brother Cancer colon cancer Diabetes Mother Diabetes Father No problems noted. Other Hypertension Rheumatoid arthritis Social History Smoking and tobacco/nicotine status: former use of tobacco/nicotine Quit status (tobacco/nicotine): has quit using Year quit tobacco: 1999 Second hand smoke exposure: No Alcohol intake: former Year of sobriety/quit date alcohol: 1997 Substance/Drug Use: never Caregiver/support person: Yes Lives independently: Yes Household members: spouse Marital status: service: No Current occupational status: disabled Current gender identity: Male Special fernando needs: No Agree to transfusion: Yes Physical Exam 2 Const: COMMON NORMALS: no acute distress GENERAL APPEARANCE: cooperative and comfortable ORIENTATION/CONSCIOUSNESS: Yes awake, Yes oriented to person, Yes oriented to place and Yes oriented to time HENMT: COMMON NORMALS: normocephalic, atraumatic and hearing grossly normal bilaterally HEAD & SCALP: normocephalic and atraumatic Resp: COMMON NORMALS: normal respiratory effort, No retractions, No use of accessory muscles and clear to auscultation bilaterally AUSCULTATION: clear to auscultation bilaterally Cardio: COMMON NORMALS: regular rate, regular rhythm and No murmurs present (Cardio) RATE: regular rate RHYTHM: regular rhythm GI: COMMON NORMALS: Soft to palpation and No hepatosplenomegaly present A USCULTATION: Yes normoactive bowel sounds PALPATION: Yes Soft to palpation, No Tenderness to palpation present (GI), No Guarding due to palpation present (GI) and Yes No hepatosplenomegaly present Extremity: COMMON NORMALS: normal to inspection, capillary refill normal, no clubbing, cyanosis or edema, no calf tenderness and no pedal edema Neuro: SENSORIUM/ORIENTATION: Yes oriented to person, Yes oriented to place and Yes oriented to time Skin: COMMON NORMALS: no rashes or lesions noted GENERAL SKIN EXAM: no rashes or lesions noted Course 2 Vital Signs: Vital signs: Vital Signs Temperature 97.8 F 11/18/23 11:16 Pulse Rate 81 11/18/23 15:00 Respiratory Rate 17 11/18/23 15:00 Blood Pressure 132/90 11/18/23 15:00 Pulse Oximetry 96 11/18/23 15:00 Oxygen Delivery Me thod Room Air 11/18/23 12:11 MDM - Chest Pain Medical Decision Making EKG shows a paced rhythm. First troponin is over 200. He did have some pain rating to his neck arm and jaw. He is not having any chest pain at this time. Family member present at bedside is concerned he may have had a stroke not seen any localizing symptoms or symptoms suggestive of stroke when initially seen him on repeat exam no focal neurologic deficits noted. Leg raising arm raising are negative no ataxia normal facial symmetry normal speech and vision First troponin over 200. Positive stress test in June. Will start heparin. Will admit discussed with hospitalist and with system development manager. Orders written Medical Records I reviewed the patient's medical records. Lab Data I reviewed the patient's lab results. 11/18/23 11:34 11/18/23 11:34 Laboratory Results WBC 14.23 10^3/uL (3.29-11.43) H 11/18/23 11:34 RBC 5.29 10^6/uL (3.85-5.65) 11/18/23 11:34 Hgb 16.80 g/dL (11.27-16.99) 11/18/23 11:34 Hct 47.9 % (37-53) 11/18/23 11:34 MCV 90.5 fl (82-101) 11/18/23 11:34 MCH 31.8 pg (27-33) 11/18/23 11:34 MCHC 35.1 g/dL (30-55) 11/18/23 11:34 RDW 12.8 % (12.1-15.1) 11/18/23 11:34 Plt Count 196 10^3/cmm (157-399) 11/18/23 11:34 MPV 11.7 fL (7.4-10.4) H 11/18/23 11:34 Neut % (Auto) 77.4 % 11/18/23 11:34 Lymph % (Auto) 14.8 % 11/18/23 11:34 [place] % (Auto) 6.7 % 11/18/23 11:34 Eos % (Auto) 0.2 % 11/18/23 11:34 Baso % (Auto) 0.1 % 11/18/23 11:34 Neut # (Auto) 11.00 10^3/uL (1.8-7.7) H 11/18/23 11:34 Lymph # (Auto) 2.1 10^3/uL (0.8-4.8) 11/18/23 11:34 [place] # (Auto) 1.0 10^3/uL (0.2-0.9) H 11/18/23 11:34 Eos # (Auto) 0.0 10^3/uL (0.0-0.8) 11/18/23 11:34 Baso # (Auto) 0.0 10^3/uL (0.0-0.1) 11/18/23 11:34 Nucleated RBC % (auto) 0 % 11/18/23 11:34 Nucleated RBCs # 0.0 /100WBC 11/18/23 11:34 Sodium 136 mmol/L (136-145) 11/18/23 11:34 Potassium 4.5 mmol/L (3.5-5.1) 11/18/23 11:34 Chloride 100 mmol/L (98-107) 11/18/23 11:34 Carbon Dioxide 22 mmol/L (22-29) 11/18/23 11:34 Anion Gap 18.5 (5-19) 11/18/23 11:34 BUN 16 mg/dL (8-23) 11/18/23 11:34 Creatinine 0.7 mg/dL (0.7-1.2) 11/18/23 11:34 GFR Calculation 113.9 mL/min (90-130) 11/18/23 11:34 Glucose 391 mg/dL (65-115) H 11/18/23 11:34 Calculated Osmolality 299 mOsm/kg (285-295) H 11/18/23 11:34 Calcium 9.3 mg/dL (8.5-10.5) 11/18/23 11:34 Total Bilirubin 0.5 mg/dL (0.15-1.2) 11/18/23 11:34 AST 11 U/L (0-40) 11/18/23 11:34 ALT 25 U/L (0-41) 11/18/23 11:34 Alkaline Phosphatase 120 U/L (40-130) 11/18/23 11:34 Troponin T Baseline 201 ng/L (0-15) H* 11/18/23 11:34 Troponin T 120 Minute 188.7 ng/L (0-15) H 11/18/23 14:08 Delta Troponin T -12.3 ABS# (0-10) L 11/18/23 14:08 Total Protein 6.5 g/dL (6.6-8.7) L 11/18/23 11:34 Albumin 4.1 g/dL (3.5-5.2) 11/18/23 11:34 Globulin 2.4 g/dL (1.3-4.6) 11/18/23 11:34 All radiology interpretation(s) finalized by discharge Discharge Plan Discharge Patient Disposition: Admitted As Inpatient Admit Provider: Rosa Agee Clinical Impression: Non-ST elevation MS (NSTEMI), Cardiomyopathy, dilated, nonischemic Condition: Stable Coding Level of Care Code ED Evp Managing Director for Ck Crooks
[2023-11-18] MEDS: nitroglycerin 1 gm/inch oint Pkt 1 INCH TOPICAL (11:58)
[2023-11-18 12:14] LABS: Alanine Aminotransferase 25 U/L (0-41); Albumin Level 4.1 g/dL (3.5-5.2); Alkaline Phosphatase 120 U/L (40-130); Anion Gap 18.5 (5-19); Aspartate Amino Transferase 11 U/L (0-40); Blood Urea Nitrogen 16 mg/dL (8-23); Calcium 9.3 mg/dL (8.5-10.5); Carbon Dioxide 22 mmol/L (22-29); Chloride 100 mmol/L (98-107); Globulin 2.4 g/dL (1.3-4.6); Glomerular Filtration Rate 113.9 mL/min (90-130); Glucose 391 mg/dL (65-115); Osmolality Calculated 299 mOsm/kg (285-295); Potassium 4.5 mmol/L (3.5-5.1); Sodium 136 mmol/L (136-145); Total Bilirubin 0.5 mg/dL (0.15-1.2); Total Protein 6.5 g/dL (6.6-8.7)
[2023-11-18 12:19] LABS: Troponin(5th) Baseline 201 ng/L (0-15)
--- NOTE | 2023-11-18 13:16 | ECG_ITS ---
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 Measurements Intervals [place] Rate: 72 P: 58 [place]: 183 QRS: 176 QRSD: 174 T: 35 QT: 441 QTc: 484 Interpretive Statements ELECTRONIC ATRIAL PACEMAKER ELECTRONIC VENTRICULAR PACEMAKER ABNORMAL RHYTHM ECG Compared to ECG 11/18/2023 11:14:16 No significant changes Electronically Signed On 11-18-2023 21:48:18 FIELD SALES AGENT by Joe Holder M.D. [id number]
[2023-11-18] MEDS: heparin 5,000 unit/mL INJ 1 mL IV (13:53)
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
[2023-11-18] MEDS: heparin drip 25,000 UNIT/500 ML PREMIX 34 UNIT IV (14:03)
[2023-11-18 14:42] LABS: Troponin 5 2HR Delta -12.3 ABS# (0-10)
[2023-11-18 14:43] LABS: Troponin 5 2HR 188.7 ng/L (0-15)
--- NOTE | 2023-11-18 15:11 | CTR_ITS ---
PROCEDURE INFORMATION: Exam: CT Head Without Contrast Exam date and time: 11/18/2023 10:53 PM Age: 63 years old Clinical indication: Other: Dysathria, ; additional info: Dysathria, reported onset in ED today, HX CVA similar SX, on heparin drip TECHNIQUE: Imaging protocol: Computed tomography of the head without contrast. Radiation optimization: All CT scans at this facility use at least one of these dose optimization techniques: automated exposure control; mA and/or kV adjustment per patient size (includes targeted exams where dose is matched to clinical indication); or iterative reconstruction. COMPARISON: CT angio headneck* [id number] 08/17/2023 6:50 AM RADIATION DOSE METRICS: Total DLP (mGy-cm): 1072.98 FINDINGS: Brain: No focal hemorrhage or midline shift is identified. The ventricles and parenchyma show mild atrophy and chronic bicerebral white matter ischemic change. Left superior anteromedial cerebellar hypodensity measures about 31 x 24 mm. This may be due to a subacute infarct. If indicated, an MRI may be helpful. 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 Cerebral ventricles: No ventriculomegaly or evidence of hydrocephalus. Paranasal sinuses: No evidence of acute sinusitis. Mastoid air cells: Visualized mastoid air cells are well aerated. Bones/joints: No displaced skull fracture is noted. Soft tissues: Unremarkable. Vasculature: Diffuse vascular calcifications are present. CT/CT head wo con* [id number] IMPRESSION: 1. No acute intracranial hemorrhage. 2. Left anteromedial cerebellar hypodensity measures about 31 x 24 mm. This may be due to a late acute or subacute CVA. This is new from 08/17/2023. If indicated, an MRI may be helpful. Because it is conspicuous on CT, a hyperacute infarct is much less likely. 3. 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 4. Mild age-related changes.
--- NOTE | 2023-11-18 15:54 | PM.CONSULT ---
Providers/Reason For Consult Consulting Physician/Specialty*: Reese Andrew MD/ Cardiology Reason for Consult*: Chest pain/troponin elevation Requesting Physician: Dr Olvera Attending Physician: Rosa Agee MD Primary Care Provider: ANDRES Pettit History of Present Illness History of Present Illness Amrik Alexander is a 63 year old male with past medical history of nonischemic cardiomyopathy, ICD in place who presented to hospital with sudden onset severe substernal chest pain. At that time he was doing physical exertion. It radiated to the left arm. He also had vomiting episode. After taking nitros, pain subsided. His initial troponin at ER is 201. It has not trended up significantly. Last year had a stress test performed that showed prior infarct in left circumflex and RCA with danny-infarct ischemia in RCA territory. Review of Systems Const: Denies: fever(s) or diaphoresis Card: Reports: chest pain; Denies: palpitations or syncope Resp: Reports: dyspnea GI: Reports: nausea and vomiting; Denies: abdominal pain : Denies: dysuria, urinary frequency or urinary urgency Musc: Denies: neck pain or back pain Skin/Breast: Denies: rash Medications/Allergies Home Medications Medication Instructions Recorded Confirmed Last Taken Type blood-glucose meter (Blood Glucose #1 ea 07/06/20 11/18/23 Unknown Rx Monitoring kit) albuterol sulfate 90 mcg/actuation 2 puff inhalation Q6H PRN 05/20/22 11/18/23 04/06/23 Rx aerosol inhaler (ProAir HFA) shortness of breath or wheezing #18 grams nebulizer machine with tubing and #1 ea 09/09/22 11/18/23 Unknown Rx mask blood sugar diagnostic (Blood #100 ea 12/05/22 11/18/23 Unknown Rx Glucose Test strips) lancets 33 gauge (BD Ultra Fine #100 ea 12/05/22 11/18/23 Unknown Rx Lancets) [id number] acid-vit 1 tab PO DAILY 04/07/23 11/18/23 11/17/23 History K-lycop 400 mcg-20 mcg-370 mcg tablet (Men's 50 Plus Multivitamin) sacubitril 97 mg-valsartan 103 mg 1 tab PO BID #180 tabs 04/08/23 11/18/23 11/17/23 Rx tablet albuterol sulfate 2.5 mg/3 mL 2.5 mg (3 mL) inhalation QID PRN 06/10/23 11/18/23 Unknown Rx (0.083 %) solution for nebulization shortness of breath or wheezing #180 mL allopurinol 300 mg tablet 300 mg PO QAM 08/17/23 11/18/23 11/17/23 History dapagliflozin propanediol 10 mg 10 mg PO QAM 08/17/23 11/18/23 11/17/23 History tablet dulaglutide 1.5 mg/0.5 mL 1.5 mg SUBCUT Q7D 08/17/23 11/18/23 11/13/23 History subcutaneous pen injector fluticasone propionate 50 2 spray intranasal DAILY PRN 08/17/23 11/18/23 Unknown History mcg/actuation nasal Allergy Symptoms spray,suspension (Flonase Allergy Relief) magnesium L-lactate 84 mg 84 mg PO QAM 08/17/23 11/18/23 11/17/23 History tablet,extended release sertraline 100 mg tablet 100 mg PO QAM #30 tabs 09/11/23 11/18/23 11/17/23 Rx carvedilol 12.5 mg tablet 12.5 mg PO BID 90 days #180 tabs 11/11/23 11/18/23 11/17/23 Rx levocetirizine 5 mg tablet (Xyzal) 5 mg PO DAILY #90 tabs 11/11/23 11/18/23 11/17/23 Rx rosuvastatin 40 mg tablet 40 mg PO BEDTIME #30 tabs 11/11/23 11/18/23 11/17/23 Rx aspirin 325 mg tablet 325 mg PO DAILY 11/18/23 11/18/23 11/17/23 History omeprazole 40 mg capsule,delayed 40 mg PO DAILY 11/18/23 11/18/23 11/17/23 History release potassium citrate 10 mEq (1,080 20 meq PO BID 11/18/23 11/18/23 11/17/23 History mg) tablet,extended release Allergies Allergy/AdvReac Type Severity Reaction Status Date / Time isosorbide Allergy unknown Verified 11/18/23 13:29 Penicillins AdvReac rash Verified 11/18/23 13:29 Current Medications Generic Name Dose Route Start Last Admin Trade Name Freq PRN Reason Stop Dose Admin Heparin Sodium (Porcine) 0 unit 11/18/23 13:00 11/18/23 13:53 Heparin 5,000 Unit/Ml Inj 1 Ml IV 4,000 unit PRN PRN Administration Heparin weight-base protocol Protocol Heparin Sodium/Sodium Chloride 25,000 unit in 500 mls @ 0 mls/hr 11/18/23 13:00 11/18/23 14:03 Heparin Drip IV 14.7 unit/kg/hr .Q0M JOSHUA 34 mls/hr Administration Protocol Per Protocol PFSH Acute PFSH: Medical History History of sleep study 2017 at [facility]: Optimal pressure settings with BiPAP found to be 12/8 cm COPD (chronic obstructive pulmonary disease) COVID-19 Wound infection following procedure infection with defibrillator lead revision, removed , scarring left subclavian area from this Cardiac resynchronization therapy defibrillator (BARTENDER MANAGER-D) in place [employer] Dr. [place], 07/11/2020 GERD (gastroesophageal reflux disease) ALBERTO (obstructive sleep apnea) C. difficile diarrhea Cataracts, bilateral CHF (congestive heart failure) Urolithiasis Multi stone former, calcium oxalate mono and dihydrate. Also calcium phosphate. Multiple interventions including endoscopy with laser lithotripsy and ESWL. Metabolic treatment with potassium citrate Hemorrhoids Psychiatric care Right ureteral calculus Osteoarthritis of hands, bilateral Cardiomyopathy Mixed hyperlipidemia Pacemaker Hypertension Diabetes Bipolar II disorder Surgical History S/P epidural steroid injection Status post hemorrhoidectomy Hx of umbilical hernia repair Hx of lithotripsy History of urethral stent H/O esophagogastroduodenoscopy (02/27/21) gastritis, duodenitis History of colonoscopy (02/27/21) descending colon polyp, hemorrhoids History of carpal tunnel release of both wrists History of permanent cardiac pacemaker placement Hx of cataract surgery Hx of shoulder surgery Family History Grandfather CAD (coronary artery disease) Brother Cancer colon cancer Diabetes Mother Diabetes Father No problems noted. Other Hypertension Rheumatoid arthritis Social History Smoking and tobacco/nicotine status: current every day tobacco/nicotine user cigarettes [ Other cigarette details: quit smoking cigarettes ] and smokeless tobacco Smokeless tobacco user: chewing tobacco Smokeless tobacco details: 3/4 can day Second hand smoke exposure: No Alcohol intake: former Year of sobriety/quit date alcohol: 1997 Substance/Drug Use: former Date of last use: 1997 Caregiver/support person: Yes Lives independently: Yes Household members: spouse Marital status: service: No Current occupational status: disabled Current gender identity: Male Special fernando needs: No Agree to transfusion: Yes Vitals/I&O/Wt Last Vital Signs Temp 97.8 F 11/18/23 11:16 Pulse 81 11/18/23 15:00 Resp 17 11/18/23 15:00 BP 132/90 11/18/23 15:00 Pulse Ox 96 11/18/23 15:00 O2 Del Method Room Air 11/18/23 12:11 Weight last 48 hrs Weight 255 lb Physical Exam Narrative: GENERAL: Patient is alert, awake and oriented x3. [] NECK: No jugular vein distension. [] HEENT: No cyanosis. No icterus. No pallor. [] HEART: Regular S1 and S2. No murmur, rub or gallop. [] LUNGS: Clear to auscultate bilaterally. [] CENTRAL NERVOUS SYSTEM: Grossly nonfocal. [] EXTREMITIES: Lower extremities with 1+ edema bilaterally. Data 11/19/23 05:11 11/19/23 05:11 A&P Assessment and plan (1) Non-ST elevation OK (NSTEMI): (2) Nonischemic congestive cardiomyopathy: (3) Mixed hyperlipidemia: (4) Cardiac resynchronization therapy defibrillator (BARTENDER MANAGER-D) in place: (5) Diabetes: Qualifiers: Diabetes mellitus type: type 2 Diabetes mellitus supervisor intermediates insulin use: without supervisor intermediates use Diabetes mellitus complication status: with hyperglycemia Qualified Code(s): E11.65 - Type 2 diabetes mellitus with hyperglycemia Plan Patient has multiple risk factors for CAD. He has known nonischemic cardiomyopathy. Last year had a stress test which showed prior infarct with danny-infarct ischemia in RCA territory but angiogram was not performed when he was medically treated. Now has presented with chest pain and troponin elevation. Will recommend coronary angiography with possible percutaneous coronary intervention. Will discuss with his primary lithograph designer, Dr. Holder and will tentatively plan for tomorrow. N.p.o. past midnight. Dual antiplatelet therapy. Continue anticoagulation. Thank you for involving us with care of this patient. We will continue to follow. Please call with questions. Consult Attestations Medical Necessity Statement: Care expected to cross 2 midnights. Coding Level of Care Code Acute Code for [facility] Diagnoses Non-ST elevation OK (NSTEMI) I21.4 Nonischemic congestive cardiomyopathy I42.0 Mixed hyperlipidemia E78.2 Cardiac resynchronization therapy defibrillator (BARTENDER MANAGER-D) in place Z95.810 Type 2 diabetes mellitus with hyperglycemia, without long-term current use of insulin E11.65 Diabetes mellitus type: type 2 Diabetes mellitus supervisor intermediates insulin use: without supervisor intermediates use Diabetes mellitus complication status: with hyperglycemia
--- NOTE | 2023-11-18 17:16 | ECG_ITS ---
[facility] Test Date: 2023-11-18 Pat Name: Amrik Alexander Department: Room: 104 Gender: Male Mass Spectroscopist: : 1960 Requested By: Andre Estrada Order Number: [id number] Haja MD: Joe Holder M.D. Measurements Intervals [place] Rate: 85 P: 51 IA: 160 QRS: 212 QRSD: 172 T: 45 QT: 409 QTc: 488 Interpretive Statements ELECTRONIC VENTRICULAR PACEMAKER with frequent PVCs ABNORMAL RHYTHM ECG Compared to ECG 11/18/2023 13:58:42 Atrial-paced complex(es) or rhythm no longer present Electronically Signed On 11-18-2023 21:50:45 MATERIALS COORDINATOR by Joe Holder M.D. [id number]
[2023-11-18 17:49] LABS: Glucose Point of Care 261 mg/dL (70-110)
[2023-11-18] MEDS: insulin lispro 100 unit/1 mL SUBCUT ×2 (18:02→22:35)
[2023-11-18] MEDS: sacubitril/valsartan 24-26 mg Tablet 4 EACH PO (18:03)
[2023-11-18] MEDS: docusate sodium 100 mg Capsule PO (18:03)
[2023-11-18] MEDS: acetaminophen 325 mg Tablet 650 MG PO (18:14)
[2023-11-18 19:42] LABS: Bilirubin Urine Neg (Negative); Blood Urine Trace (Negative); Glucose Urine UA 4+ (Normal); Ketones Urine Negative (Negative); Leukocyte Esterase Urine Negative (Negative); Nitrate Urine Negative (Negative); Protein Urine Neg (Negative); Specific Gravity, Urine 1.015 (1.005-1.030); Urine Appearance Clear (CLEAR); Urine Color Yellow (Yellow); Urobilinogen Urine 1 mg/dL (Negative); pH Urine 6 (5-7)
[2023-11-18 19:43] LABS: Add Urine Microscopic? YES; Squamous Epithelial Cell Urine 0-4 /hpf (0-5); WBC Urine 0-4 /hpf (0-5)
[2023-11-18 19:44] LABS: Add Urine Culture? No
[2023-11-18 21:25] LABS: Troponin 5 6HR Delta -16.2 ng/L (0-12)
[2023-11-18 21:26] LABS: Troponin 5 6HR 184.8 ng/L (0-15)
[2023-11-18] MEDS: atorvastatin 40 mg Tablet 80 MG PO (21:58)
[2023-11-18] MEDS: carvedilol 12.5 mg Tablet PO (21:58)
[2023-11-18 22:28] LABS: Glucose Point of Care 234 mg/dL (70-110)
[2023-11-19] VITALS (16 sets, daily range): BP systolic 117–148; BP diastolic 74–95; PULSE 77–88; RESP 17–28; TEMP 36.1–37.1; O2SAT 93–96; BMI 42.8
[2023-11-19] MEDS: heparin drip 25,000 UNIT/500 ML PREMIX 36 UNIT IV (04:46)
[2023-11-19 05:20] LABS: Basophils % 0.2 %; Eosinophils # 0.1 10^3/uL (0.0-0.8); Eosinophils % 0.4 %; Hematocrit 45.9 % (37-53); Lymphocytes # 2.1 10^3/uL (0.8-4.8); Lymphocytes % 14.1 %; Mean Corpuscular HGB Conc 34.2 g/dL (30-55); Mean Corpuscular Hemoglobin 31.1 pg (27-33); Mean Corpuscular Volume 90.9 fl (82-101); Mean Platelet Volume 11.2 fL (7.4-10.4); Monocytes # 0.9 10^3/uL (0.2-0.9); Monocytes % 6.1 %; Neutrophils # 11.41 10^3/uL (1.8-7.7); Neutrophils % 78.6 %; Nucleated Red Blood Cells % 0 %; Platelet Count 154 10^3/cmm (157-399); Red Blood Count 5.05 10^6/uL (3.85-5.65); White Blood Count 14.51 10^3/uL (3.29-11.43)
[2023-11-19 05:33] LABS: Partial Thromboplastin Time 66.6 SECONDS (23.9-36.7)
[2023-11-19 05:40] LABS: Anion Gap 13.3 (5-19); Blood Urea Nitrogen 17 mg/dL (8-23); Calcium 9.3 mg/dL (8.5-10.5); Carbon Dioxide 24 mmol/L (22-29); Chloride 101 mmol/L (98-107); Glomerular Filtration Rate 113.9 mL/min (90-130); Glucose 232 mg/dL (65-115); Magnesium 1.7 mg/dL (1.7-2.3); Osmolality Calculated 287 mOsm/kg (285-295); Phosphorus 3.5 mg/dL (2.5-4.5); Potassium 4.3 mmol/L (3.5-5.1); Sodium 134 mmol/L (136-145)
[2023-11-19] MEDS: sertraline 100 mg Tablet PO (05:40)
[2023-11-19] MEDS: allopurinol 300 mg Tablet PO (05:40)
[2023-11-19] MEDS: magnesium lactate 84 mg Tablet PO (05:40)
[2023-11-19] MEDS: sodium chloride 0.9% 1,000 ML 50 ML IV (05:41)
[2023-11-19 05:48] LABS: Estmated Average Glucose 206; Hemoglobin A1C 8.8 % (4.0-6.0)
[2023-11-19 06:04] LABS: Chol HDL Ratio 4.03 mg/dL (1.0-5.00); Cholesterol 161 mg/dL (0-200); HDL Cholesterol 40 mg/dL (60-100); LDL Cholesterol Calculated 93 mg/dL (50-129); LDL HDL Ratio 2.33 RATIO (0.00-3.22); Triglycerides 140 mg/dL (0-150)
[2023-11-19] MEDS: diphenhydrAMINE 50 mg Capsule PO (06:10)
[2023-11-19 06:18] LABS: Glucose Point of Care 199 mg/dL (70-110)
--- NOTE | 2023-11-19 07:00 | XACV_ITS ---
Exam Room: [facility] Ht: 165 cm Wt: 117 kg BSA: 2.37 m2 Gender: Male : 1960 Any Known Allergies: Other Exam Priority: Routine Procedure(s): Procedure Description: Diagnostic procedure Procedure Description: Left Heart Catheterization Procedure Description: Miscellaneous Procedure Description: ACT Procedure Description: Coronary Angiography Gallo ROPER; Diagnostic Cath Status: Urgent Diagnostic Findings * Left main is a medium caliber vessel with no significant stenotic lesions. * The left anterior descending artery is a medium caliber vessel which appears to wrap around the LV apex minimally. Mild diffuse disease was noted in the proximal and mid segment of the artery. The first and the second diagonal branches also were found to have minimal intimal irregularities. No significant stenotic lesions were noted.. * The left circumflex artery is a medium caliber vessel which gives of a high obtuse marginal branch(intermedius artery) of medium to large caliber with minimal intimal irregularities. The circumflex proper also was found to have mild diffuse intimal irregularities in the proximal segment. Distally it branches of in the multiple obtuse marginal branches. * The right coronary artery is a medium caliber dominant vessel with no significant stenotic lesions. The PLV branch was found to have minimal intimal irregularities. Conclusions 1. This 60-year-old white male with a history of nonischemic cardiomyopathy, hypertension, diabetes, dyslipidemia and recent CVA presented with prolonged episode of chest pain. His initial troponin T level was 201. In view of his multiple risk factors, presenting symptoms and the significantly elevated troponin T, in order tofurther evaluate his coronary status, cardiac catheterization was recommended.. 2. Patient underwent left heart catheterization with left and right coronary angiogram today. The findings are as follows. 3. Mild diffuse coronary artery disease with a minimal coronary calcification in the proximal segments of the left coronary arteries. Markedly elevated LVEDP of 44 mmHg. Recommendations * Patient was transferred back to medical floor in stable condition. Diagnostic RX Recommendation: medical therapy and/or counseling LV EDP: 44 mmHg Left Ventriculography Findings: * The LV gram was not performed because of the markedly elevated LVEDP. The LVEDP was measured to be 44 mmHg. Pressures Phase:Rest AO : 104 / 71 ( 84 ) @ 7:46:00 AM 120 / 91 ( 105 ) @ 7:54:00 AM 121 / 90 ( 105 ) @ 7:57:00 AM LV : 117 / 35 / 44 @ 7:54:00 AM Clinical Evaluation EBL: 5mL-10mL Procedural Details Procedure Consent Obtained. Pre-Procedure Time Out. Identified patient by full name and date of as verbalized by the patient/guarantor. Does the consent match the physician's order: Yes. Accurate & Complete Informed Consent: Yes. Inpatient/Outpatient History & Physical on Chart: Yes. If H&P is completed, is and addenduem needed: No; If yes, is the addendum complete: N/A. Visualize and Verify Site with Patient/Guarantor: N/A. Relevant Radiology Images available: Yes. The risks, benefits, and alternatives of sedation and/or procedure were discussed by physician. The patient agrees to continue. Procedure started. [facility] Clinical Fraility Score: 4: Vulnerable. Internal Medicine Doctor Indications: ACS > 24 hours. Chest Pain Symptom Assessment: Typical Angina Symptoms. Correct patient, site and procedure confirmed by cath team. Current diagnosis: NSTEMI. PERRLA. Strong, equal hand pocket assembler bilaterally. Lungs clear x 5 lobes. IV Site on Arrival: 20 gauge in the right anticubital. IV Site on Arrival: 20 gauge in the left hand. IV Fluids: 0.9% NaCl at 75ml/hr. 0 mL infused prior to hospital laboratory technician. Pre Procedural Pulses: bilateral radial was 3+. Pre Procedural Pulses: bilateral dorsalis pedis was 3+. Pre Procedural Pulses: bilateral posterior tibial was 2+. Oxygen started at 2liters/min via nasal canula. right groin was prepped with chloroprep then draped in the usual sterile fashion. right radial was prepped with chloroprep then draped in the usual sterile fashion. Physician notified. Baseline sample Acquired. HR: 84 BPM. Physician arrived. Physician scrubbed in. Immediate Pre-Procedure Time Out. Correct Patient: Yes; Correct Procedure: Yes; Correct Site: Yes; Correct Patient Position: Yes; Correct Supplies: Yes; Dried Flammable Prep: Yes; Blood Products Available: No;. Lidocaine 1% infiltrated to the right radial. Arterial access obtained. A 5 ivorian Zain catheter in over wire. ACT drawn. Results 167 seconds. Therapeutic limits - pre-heparin administration 90-150 seconds and monitoring heparin during a vascular procedure >250 seconds. Multiple views taken of left coronary artery. Catheter redirected to the RCA. Catheter removed over the exchange wire. A 5 ivorian JR4 catheter in over wire. EDP Sample taken: LV 117/35,44; HR: 80 BPM; SpO2: 95%. Pullback taken: LV Off; AO Off; Mean: , Peak to Peak: , SEP: ; HR: 79 BPM; SpO2: 95%. Catheter redirected to the RCA. Multiple views taken of right coronary artery. Catheter removed over the exchange wire. A TR Band was unsuccessful obtaining hemostatsis at the Right Radial artery insertion site. Post Procedure: Pulses reassessed and unchanged. PERRLA. Strong, equal hand pocket assembler bilaterally. No VTE prophylaxis required. Medication's Wasted: Nitro = 49.8 mg. Medication's Wasted: Heparin = 1000 units. Medication's Wasted: Other = Fentanyl 75 mcg. Medication's Wasted: Lidocaine 1% = 2 mL. Total IV fluids: 50 mL. Post-op diagnosis: Mild CAD, Cardiomyopathy. Complications: None. Estimated blood loss: 5mL-10mL. Responsiveness - Normal response to verbal stimuli; alert and oriented, PERRLA. Airway - Unaffected, no intervention required; spontaneous ventilation. Circulation: W/N/L, pulses unchanged. Nausea/Vomiting: No. Procedure completed. Patient transferred by bed to 1st floor. Vital chart was stopped. Access Site Site: Right Radial artery Sheath Size: 6 Fr Hemostasis Method: TR Band Hemostasis Success: Unsuccessful Procedure Medications Start: 7:35 AM Stop: 7:35 AM Medication: Versed 1 mg and Fentanyl 25 mcg Amount: 1 Route: I.V. Start: 7:43 AM Stop: 7:43 AM Medication: Verapamil Amount: 5 mg Route: I.A. Start: 7:44 AM Stop: 7:44 AM Medication: Nitrogylcerin Amount: 200 mcg Route: I.A. Start: 7:51 AM Stop: 7:51 AM Medication: Heparin Amount: 5000 units Route: I.V. Start: 7:54 AM Stop: 7:54 AM Medication: Versed Amount: 1 mg Route: I.V. I, the attending physician, have reviewed and verified all procedure medications. Yes, all medications given per verbal order History/Risk Factors Hypertension: Yes Dyslipidemia: Yes Peripheral Arterial Disease (PAD): No Myocardial Infarction (DC): No Obesity: No Renal Disease: No Tobacco Use: Current/Recent(w/in 1 year) Prior Interventions PCI: No CABG: No Valve Surgery: No Report Signatures Finalized by Dr Joe Holder MD [facility] on 11/19/2023 01:52 PM
--- NOTE | 2023-11-19 08:03 | W.PM.OPSUD ---
Surgery/Procedure H&P Update DATE OF PROCEDURE: November 19, 2023 DATE H&P PERFORMED: 11/18/23 H&P UPDATE INFORMATION: I have reviewed H&P completed within last 30 days, I have examined patient prior to procedure and No changes to prior documentation PREOP DIAGNOSIS: NSTEMI PRIMARY INDICATION FOR PROCEDURE: Patient with history of cardiomyopathy presenting with features of unstable angina/non-ST elevation myocardial infarction PLANNED PROCEDURE: Operation Date: 11/19/23 07:00 Proposed Procedures p Cardiac Catheterization(Not Applicable) - Joe Holder MD PATIENT REASSESSED PRIOR TO SEDATION, WITH NO CHANGE NOTED: Yes PHYSICAL EXAM: alert, oriented x 3, clear to auscultation bilaterally and regular rate & rhythm AIRWAY EVAL/ANESTHESIA PLAN: normal airway, see other exam findings, ASA IV, Monitored Anesthesia, Local Anesthesia, Risks, benefits & alternatives of sedation and/or procedure discussed and Patient agrees to continue as planned
--- NOTE | 2023-11-19 08:25 | PC.NURSE ---
Patient returned to from solder making laborer at 0815. Bedside report given. 15ml in tr band. Patient sitting up eating Vitals WNL.
[2023-11-19] MEDS: sacubitril/valsartan 24-26 mg Tablet 4 EACH PO ×2 (09:27→18:06)
[2023-11-19] MEDS: carvedilol 12.5 mg Tablet PO ×2 (09:27→20:59)
[2023-11-19] MEDS: aspirin 325 mg Tablet PO (09:27)
[2023-11-19] MEDS: insulin lispro 100 unit/1 mL SUBCUT ×4 (09:27→23:04)
[2023-11-19] MEDS: pantoprazole DR 40 mg Tablet PO (09:28)
[2023-11-19] MEDS: docusate sodium 100 mg Capsule PO (09:28)
--- NOTE | 2023-11-19 10:22 | PC.CHAP ---
Pastoral Care Encounter/Spiritual Assessment Type of Contact [] Declined cat and dog bather visit [] Patient/Family/Request visit [] Outpatient visit [] Follow-up visit [] Physician referral [] Code/Alert [x] Routine visit [] Staff referral [] Actively dying [] Patient sleeping [] Family support [] [] Out of room [] Palliative care [] [] Receiving care in room [] Pre-surgical visit [] Trauma [] Long length of stay [] ICU visit [] Other: Relational/Emotional Strength [] Patient feels connected with others/family/visitors/staff [] Distress [] Loneliness/isolation [] Abandonment Spirituality of Patient [] Person of Elyse [] Attends Baptism of their Elyse [] Believes in Prayer [] Reads Bible or Jainism materials [] There are Spiritual issues to be addressed Equipment Specialist Interventions [x] Prayer [] Active listening [] Non-anxious presence [] Spiritual/emotional support [] Crisis/trauma care [] Spiritual counseling [] Bereavement support [] Provided bereavement packet [] Provided Bible/devotional materials [] Provided toy/stuffed animal, coloring book to patient or family member [] Provided Communion [] Anointing/Morris [] Salvation [] Completed spiritual assessment [] Other: Impact on Illness or Injury [] Angry [] Fearful [] Anxious [] Often cries [] Exhaustion [] Unable to work [] Unable to attend restoration [] Unable to walk/stand [] Unable to read [] Unable to drive [] Unable to eat/drink [] Unable to sleep [] Unable to be with family [] Patient intubated [] Other: Summary Time spent with patient 10 min
--- NOTE | 2023-11-19 11:12 | PM.PN ---
Subjective Subjective: Patient is chest pain-free Disappointed to know that he has to stay 1 more day Nonobstructive coronary disease High left ventricular end-diastolic volume PACs Patient rhythm is paced Dr. Holder recommended monitor 1 more day in addition of metoprolol Vitals/I&O/Wt Last Vital Signs Temp 98.0 F 11/19/23 03:51 Pulse 77 11/19/23 10:35 Resp 20 H 11/19/23 10:35 BP 148/95 11/19/23 03:51 Pulse Ox 96 11/19/23 08:00 O2 Del Method Room Air 11/19/23 08:00 FiO2 21 11/19/23 04:23 11/18/23 11/19/23 11/19/23 22:59 06:59 14:59 Intake Total 240 / 240 500.000 / 740.000 120 / 120 Output Total 475 / 475 Balance 240 / 240 25.000 / 265.000 120 / 120 Weight last 48 hrs Weight 116.772 kg Weight 116.8 kg Weight 115.666 kg Weight 115.666 kg Physical Exam Narrative: Clinically euvolemic Awake and alert Currently on room air Pleasant at the bedside S1, S2 Abdomen distended nontender GCS 15 Data 11/19/23 05:11 11/19/23 05:11 A&P Assessment and plan (1) Bipolar II disorder: (2) Nonischemic congestive cardiomyopathy: (3) Unstable angina: (4) Pacemaker: (5) Cardiac resynchronization therapy defibrillator (BRANCH ASSOCIATE TELLER-D) in place: (6) Diabetes: Qualifiers: Diabetes mellitus type: type 2 Diabetes mellitus buttermilk 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 insulin use: without mcfp use Diabetes mellitus complication status: with hyperglycemia Qualified Code(s): E11.65 - Type 2 diabetes mellitus with hyperglycemia (7) Mixed hyperlipidemia: Plan Nonobstructive coronary disease Will give IV Lasix Continue Coreg Patient rhythm is paced Patient most likely will be able to go home by tomorrow Consistent carb diet along sliding scale Full code DVT prophylaxis on board Attestations Medical Necessity Statement*: Discharge tomorrow Diagnoses Bipolar II disorder F31.81 Nonischemic congestive cardiomyopathy I42.0 Unstable angina I20.0 Pacemaker Z95.0 Cardiac resynchronization therapy defibrillator (BRANCH ASSOCIATE TELLER-D) in place Z95.810 Type 2 diabetes mellitus with hyperglycemia, without long-term current use of insulin E11.65 Diabetes mellitus type: type 2 Diabetes mellitus buttermilk 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 insulin use: without buttermilk 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 use Diabetes mellitus complication status: with hyperglycemia Mixed hyperlipidemia E78.2
[2023-11-19 11:46] LABS: Glucose Point of Care 250 mg/dL (70-110)
--- NOTE | 2023-11-19 11:49 | PC.NURSE ---
TR band removed at 1143. No hematoma noted.
[2023-11-19] MEDS: FUROsemide 10 mg/mL SDV 4mL 40 MG IVP (12:32)
--- NOTE | 2023-11-19 12:33 | USCV_ITS ---
Amrik Alexander Age: 63 Gender: M : 1960 Exam Date: 11/19/2023 14:22 Ordering Phys: Khalida Gomez MD Technologist: MARC Exam Location[place] [facility] [place] Indication: UA BP: 117 / 74 HR: 88 Rhythm: Sinus Technical Quality: Adequate MEASUREMENTS (Male / Female) Normal Values 2D ECHO LVOT Diameter 2.0 cm LV Ejection Fraction MOD 2C 28.3 % LV Ejection Fraction 2C AL 29.4 % LA Diameter 3.0 cm LA Width 3.8 cm LA Height 5.0 cm RA Width 3.6 cm RA Height 3.5 cm Aorta at Sinotubular Diameter 2.4 cm IVC Diameter 1.6 cm M-MODE Aortic Annulus Diameter 2.5 cm LA Ao Ratio MM 1.0 MV E Point Septal Separation 2.8 cm DOPPLER AV Peak Velocity 135.0 cm/s LVOT Peak Velocity 99.0 cm/s AV Area Cont Eq vti 1.8 cm squared AV Area Cont Eq pk 2.4 cm squared MV Peak Velocity 76.0 cm/s MV Area PHT 4.2 cm squared Mitral E to A Ratio 1.4 MV E' Velocity 39.5 cm/s Mitral E to MV E' Ratio 15.2 Mitral E to LV E' Lateral Ratio 11.8 Mitral E to LV E' Septal Ratio 21.5 TR Peak Velocity 142.0 cm/s TR Peak Gradient 8.1 mmHg TR Mean Velocity 109.0 cm/s TR Mean Gradient 5.0 mmHg TR Velocity Time Integral 39.1 cm TV Peak E Velocity 38.0 cm/s Right Atrial Pressure 3.0 mmHg Pulmonary Artery Systolic Pressu 11.1 mmHg PV Peak Velocity 108.0 cm/s RV Acceleration Time 0.1 s RV Ejection Time 0.2 s RV AcT/ET 0.4 FINDINGS Left Ventricle Left ventricle appears dilated. LV systolic function is severely reduced with EF of 15-20%. Severe global hypokinesis seen. Right Ventricle Normal in size and function Right Atrium Normal in size Left Atrium Dilated Mitral Valve Structurally normal mitral valve. Mild mitral regurgitation. Aortic Valve Structurally normal aortic valve. No significant stenosis or regurgitation Tricuspid Valve Mild tricuspid regurgitation. Insufficient TR jet to calculate RVSP. Pulmonic Valve Not well-visualized Pericardium Normal Aorta Normal in size IVC Appears to be normal CONCLUSIONS LV systolic function is severely reduced with EF of 15-20%. Left atrial dilation Mild mitral regurgitation Mild tricuspid regurgitation Compared to prior echocardiogram from 08/2023, no significant changes seen. Reese Andrew MD (Electronically Signed) Final Date: 19 November 2023 19:54 S
[2023-11-19] MEDS: perflutren protein-a microsphr 0.22 mg/mL SDV 3 mL IV (14:51)
[2023-11-19 16:44] LABS: Glucose Point of Care 215 mg/dL (70-110)
--- NOTE | 2023-11-19 20:27 | PM.PN ---
Subjective Subjective: Patient is admitted with features of a non-ST elevation myocardial infarction. Has not had a recurrence of chest pain. Telemetry shows AV paced rhythm with PVCs. Medications: Medication Review Details: Current Medications Acetaminophen (Acetaminophen 325 Mg Tablet) 650 mg PO Q6H PRN PRN Reason: Mild/Mod Pain Or Temp >/= 101 Last Admin: 11/18/23 18:14 Dose: 650 mg Al Hydrox/Mg Hydrox/Simethicone (Feds-Bxl-Inbppnzbf-Lb 30 Ml Udc) 30 ml PO Q15M PRN PRN Reason: INDIGESTION Albuterol Sulfate (Albuterol 2.5 Mg/3 Ml Neb) 2.5 mg INHALATION Q4H PRN PRN Reason: shortness of breath or wheezing Allopurinol (Allopurinol 300 Mg Tablet) 300 mg PO QAM COUNT [facility]CLUDES [facility] Last Admin: 11/19/23 05:40 Dose: 300 mg Aspirin (Aspirin 325 Mg Tablet) 325 mg PO DAILY COUNT [facility]CLUDES [facility] Last Admin: 11/19/23 09:27 Dose: 325 mg Atorvastatin Calcium (Atorvastatin 40 Mg Tablet) 80 mg PO BEDTIME COUNT [facility]CLUDES [facility] Last Admin: 11/18/23 21:58 Dose: 80 mg Atropine Sulfate (Atropine 1 Mg/Ml Sdv 1 Ml) 0.5 mg IVP PRN PRN PRN Reason: Symptomatic bradycardia Bisacodyl (Bisacodyl 5 Mg Tablet) 10 mg PO DAILY PRN; Protocol PRN Reason: Constipation (see protocol) Calcium Carbonate (Calcium Carbonate 500 Mg Chew Tablet) 1,000 mg PO Q4H PRN PRN Reason: DYSPEPSI Carvedilol (Carvedilol 12.5 Mg Tablet) 12.5 mg PO BID@ [facility]CLUDES [facility] Last Admin: 11/19/23 09:27 Dose: 12.5 mg Dextrose (Dextrose 50% Syringe 50 Ml) 25 ml IVP ONCE PRN; Protocol PRN Reason: hypoglycemia protocol Dextrose (Dextrose 50% Syringe 50 Ml) 50 ml IVP PRN PRN; Protocol PRN Reason: hypoglycemia protocol Docusate Sodium (Docusate Sodium 100 Mg Capsule) 100 mg PO BID COUNT [facility]CLUDES [facility] Last Admin: 11/19/23 18:06 Dose: Not Given Fentanyl (Fentanyl 50 Mcg/Ml Inj 2ml) 50 mcg IVP PRN PRN PRN Reason: Prior to sheath removal Fluticasone Propionate (Fluticasone Nasal [place] 16gm Btl) 2 spray INTRANASAL DAILY PRN PRN Reason: Allergy Symptoms Furosemide (Furosemide 10 Mg/Ml Sdv 4ml) 40 mg IVP Q24H COUNT [facility]CLUDES [facility] Last Admin: 11/19/23 12:32 Dose: 40 mg Dextrose (D5w) 500 mls @ 0 mls/hr IV ONCE PRN; Protocol PRN Reason: Adult Acute Hypoglycemia Prot Insulin Human Lispro (Insulin Lispro 100 Unit/1 Ml) 0 unit SUBCUT BEDTIME COUNT [facility]CLUDES [facility]; Protocol Last Admin: 11/18/23 22:35 Dose: 3 unit Insulin Human Lispro (Insulin Lispro 100 Unit/1 Ml) 0 unit SUBCUT TIDWM COUNT INCLUDES [facility]; Protocol Last Admin: 11/19/23 18:06 Dose: 6 unit Magnesium Hydroxide (Magnesium Hydroxide 30 Ml Udc) 30 ml PO DAILY PRN PRN Reason: CONSTIPATION Magnesium Lactate (Magnesium Lactate 84 Mg Tablet) 84 mg PO QAM COUNT INCLUDES [facility] Last Admin: 11/19/23 05:40 Dose: 84 mg Naloxone HCl (Naloxone 0.4 Mg/Ml Sdv) 0.1 mg IVP Q2M PRN PRN Reason: RESPIRATORY RATE < 8/MIN Ondansetron HCl (Ondansetron 2 Mg/Ml Sdv 2 Ml) 4 mg IVP Q6H PRN PRN Reason: NAUSEA AND VOMITING Pantoprazole Sodium (Pantoprazole Dr 40 Mg Tablet) 40 mg PO DAILY COUNT [facility]CLUDES [facility] Last Admin: 11/19/23 09:28 Dose: 40 mg Sacubitril/Valsartan (Sacubitril/Valsartan 24-26 Mg Tablet) 4 each PO BID COUNT [facility]CLUDES [facility] Last Admin: 11/19/23 18:06 Dose: 4 each Sertraline HCl (Sertraline 100 Mg Tablet) 100 mg PO [facility] Last Admin: 11/19/23 05:40 Dose: 100 mg Temazepam (Temazepam 15 Mg Capsule) 15 mg PO BEDTIME PRN PRN Reason: INSOMNIA Vitals/I&O/Wt Last Vital Signs Temp 97.7 F 11/19/23 16:00 Pulse 87 11/19/23 16:57 Resp 28 H 11/19/23 16:00 BP 127/90 11/19/23 16:00 Pulse Ox 93 11/19/23 16:00 O2 Del Method Room Air 11/19/23 16:00 FiO2 21 11/19/23 15:57 11/19/23 11/19/23 11/19/23 06:59 14:59 22:59 Intake Total 500.000 / 740.000 360 / 360 240 / 600 Output Total 475 / 475 380 / 380 Balance 25.000 / 265.000 360 / 360 -140 / 220 Weight last 48 hrs Weight 257 lb 7 oz Weight 257 lb 8 oz Weight 255 lb Weight 255 lb Physical Exam Narrative: GENERAL: The patient is alert and oriented times three. Not in any acute distress. HEENT: No significant pallor, icterus or lymphadenopathy.Oral cavity: There are no mucous membrane lesions. NECK: Trachea appears to be central. No masses noted. No JVD or thyromegaly appreciated. RESPIRATORY: Chest is symmetrical. No intercostals muscle retraction or any accessory muscle activation. There is no chest wall tenderness. Breath sounds are heard bilaterally. No rales or rhonchi heard. No evidence of any consolidation. BREASTS: Deferred. HEART: The heart sounds are normal. No S3 or S4. Short systolic murmur in the lower sternal border.No pericardial rub ABDOMEN: No vessel pulsations or distention. No tenderness. No organomegaly appreciated. Bowel sounds are normally heard. : Deferred. RECTAL: Deferred. LYMPHATIC: No lymphadenopathy noted in the neck. EXTREMITIES: No edema or cyanosis. No clubbing. MUSCULOSKELETAL: No acute joint deformities or swelling SKIN: There are no significant rashes or ecchymosis NEUROPSYCHIATRIC: The patient is alert and oriented x3. Appears to be in a good mood. No tremors or rigidity noted. Data 11/19/23 05:11 11/19/23 05:11 Other Labs: Laboratory Last Values WBC 14.51 10^3/uL (3.29-11.43) H 11/19/23 05:11 RBC 5.05 10^6/uL (3.85-5.65) 11/19/23 05:11 Hgb 15.70 g/dL (11.27-16.99) 11/19/23 05:11 Hct 45.9 % (37-53) 11/19/23 05:11 MCV 90.9 fl (82-101) 11/19/23 05:11 MCH 31.1 pg (27-33) 11/19/23 05:11 MCHC 34.2 g/dL (30-55) 11/19/23 05:11 RDW 13.0 % (12.1-15.1) 11/19/23 05:11 Plt Count 154 10^3/cmm (157-399) L 11/19/23 05:11 MPV 11.2 fL (7.4-10.4) H 11/19/23 05:11 Neut % (Auto) 78.6 % 11/19/23 05:11 Lymph % (Auto) 14.1 % 11/19/23 05:11 [place] % (Auto) 6.1 % 11/19/23 05:11 Eos % (Auto) 0.4 % 11/19/23 05:11 Baso % (Auto) 0.2 % 11/19/23 05:11 Neut # (Auto) 11.41 10^3/uL (1.8-7.7) H 11/19/23 05:11 Lymph # (Auto) 2.1 10^3/uL (0.8-4.8) 11/19/23 05:11 [place] # (Auto) 0.9 10^3/uL (0.2-0.9) 11/19/23 05:11 Eos # (Auto) 0.1 10^3/uL (0.0-0.8) 11/19/23 05:11 Baso # (Auto) 0.0 10^3/uL (0.0-0.1) 11/19/23 05:11 Nucleated RBC % (auto) 0 % 11/19/23 05:11 Nucleated RBCs # 0.0 /100WBC 11/19/23 05:11 APTT 66.6 SECONDS (23.9-36.7) H 11/19/23 05:11 Sodium 134 mmol/L (136-145) L 11/19/23 05:11 Potassium 4.3 mmol/L (3.5-5.1) 11/19/23 05:11 Chloride 101 mmol/L (98-107) 11/19/23 05:11 Carbon Dioxide 24 mmol/L (22-29) 11/19/23 05:11 Anion Gap 13.3 (5-19) 11/19/23 05:11 BUN 17 mg/dL (8-23) 11/19/23 05:11 Creatinine 0.7 mg/dL (0.7-1.2) 11/19/23 05:11 GFR Calculation 113.9 mL/min (90-130) 11/19/23 05:11 Glucose 232 mg/dL (65-115) H 11/19/23 05:11 POC Glucose 215 mg/dL (70-110) H 11/19/23 16:21 Estimat Average Glucose 206 11/19/23 05:11 Hemoglobin A1c 8.8 % (4.0-6.0) H 11/19/23 05:11 Calculated Osmolality 287 mOsm/kg (285-295) 11/19/23 05:11 Calcium 9.3 mg/dL (8.5-10.5) 11/19/23 05:11 Phosphorus 3.5 mg/dL (2.5-4.5) 11/19/23 05:11 Magnesium 1.7 mg/dL (1.7-2.3) 11/19/23 05:11 Total Bilirubin 0.5 mg/dL (0.15-1.2) 11/18/23 11:34 AST 11 U/L (0-40) 11/18/23 11:34 ALT 25 U/L (0-41) 11/18/23 11:34 Alkaline Phosphatase 120 U/L (40-130) 11/18/23 11:34 Troponin T Baseline 201 ng/L (0-15) H* 11/18/23 11:34 Troponin T 120 Minute 188.7 ng/L (0-15) H 11/18/23 14:08 Delta Troponin T -12.3 ABS# (0-10) L 11/18/23 14:08 Troponin T Hi Sens 6Hr 184.8 ng/L (0-15) H 11/18/23 20:13 Troponin T Hi Sens 6Hr Delta -16.2 ng/L (0-12) L 11/18/23 20:13 Total Protein 6.5 g/dL (6.6-8.7) L 11/18/23 11:34 Albumin 4.1 g/dL (3.5-5.2) 11/18/23 11:34 Globulin 2.4 g/dL (1.3-4.6) 11/18/23 11:34 Triglycerides 140 mg/dL (0-150) 11/19/23 05:11 Cholesterol 161 mg/dL (0-200) 11/19/23 05:11 LDL Cholesterol, Calc 93 mg/dL (50-129) 11/19/23 05:11 HDL Cholesterol 40 mg/dL (60-100) L 11/19/23 05:11 LDL/HDL Ratio 2.33 RATIO (0.00-3.22) 11/19/23 05:11 Cholesterol/HDL Ratio 4.03 mg/dL (1.0-5.00) 11/19/23 05:11 Urine Color Yellow (Yellow) 11/18/23 18:15 Urine Appearance Clear (CLEAR) 11/18/23 18:15 Urine pH 6 (5-7) 11/18/23 18:15 Ur Specific [place] 1.015 (1.005-1.030) 11/18/23 18:15 Urine Protein Neg (Negative) 11/18/23 18:15 Urine Glucose (UA) 4+ (Normal) H 11/18/23 18:15 Urine Ketones Negative (Negative) 11/18/23 18:15 Urine Blood Trace (Negative) H 11/18/23 18:15 Urine Nitrate Negative (Negative) 11/18/23 18:15 Urine Bilirubin Neg (Negative) 11/18/23 18:15 Urine Urobilinogen 1 mg/dL (Negative) H 11/18/23 18:15 Ur Leukocyte Esterase Negative (Negative) 11/18/23 18:15 Urine RBC 5-10 /hpf (0-2) H 11/18/23 18:15 Urine WBC 0-4 /hpf (0-5) H 11/18/23 18:15 Ur Squamous Epith Cells 0-4 /hpf (0-5) H 11/18/23 18:15 Amorphous Sediment Not Reportable 11/18/23 18:15 Urine Bacteria None /hpf (NONE) 11/18/23 18:15 A&P Assessment and plan (1) Non-ST elevation [place] (NSTEMI): In order to further evaluate the patient is a coronary status and a cardiac catheterization would be appropriate. This was discussed with the patient in detail with the risk and benefits. The risk of bleeding, hematoma, vascular injury, myocardial infarction, myocardial perforation, malignant cardiac arrhythmias ,CVA, renal failure and other concomitant complications were explained in detail. Patient understood this well and consented to proceed Will go ahead and schedule the procedure today. Based on the results, further recommendations will be made (2) Mixed hyperlipidemia: May continue on the current medications. (3) Cardiac resynchronization therapy defibrillator (WHEEL PRESSER-D) in place: The ICD function is found to be appropriate. May continue on the current management. (4) Nonischemic congestive cardiomyopathy: Currently the patient has no evidence of decompensation. Will continue on the current medications. (5) Diabetes: The blood sugar is elevated. Management as per the primary. Qualifiers: Diabetes mellitus type: type 2 Diabetes mellitus intermediate insulin use: without termite treater use Diabetes mellitus complication status: with hyperglycemia Qualified Code(s): E11.65 - Type 2 diabetes mellitus with hyperglycemia Plan The patient underwent the cardiac catheterization today and was found to have mild coronary artery disease. Based on the findings, it was opted to treat him medically. I will keep him on Plavix for 3 months. Continue other medications as it is. Attestations Medical Necessity Statement*: Disposition as per the primary Coding Level of Care Code 76888 Diagnoses Non-ST elevation [place] (NSTEMI) I21.4 Mixed hyperlipidemia E78.2 Cardiac resynchronization therapy defibrillator (WHEEL PRESSER-D) in place Z95.810 Nonischemic congestive cardiomyopathy I42.0 Type 2 diabetes mellitus with hyperglycemia, without long-term current use of insulin E11.65 Diabetes mellitus type: type 2 Diabetes mellitus intermediate insulin use: without termite treater use Diabetes mellitus complication status: with hyperglycemia
[2023-11-19] MEDS: atorvastatin 40 mg Tablet 80 MG PO (20:59)
[2023-11-19 21:52] LABS: Troponin T (5th) Once 111 ng/L (0-15)
[2023-11-19 22:17] LABS: Glucose Point of Care 220 mg/dL (70-110)
[2023-11-20] VITALS (9 sets, daily range): BP systolic 124–139; BP diastolic 77–93; PULSE 75–89; RESP 18–21; TEMP 36.5–37.2; O2SAT 93–95
[2023-11-20 04:23] LABS: Anion Gap 13.3 (5-19); Blood Urea Nitrogen 18 mg/dL (8-23); Calcium 9.2 mg/dL (8.5-10.5); Carbon Dioxide 26 mmol/L (22-29); Chloride 100 mmol/L (98-107); Creatinine Clr Calc Pharmacy 149.0249; Glomerular Filtration Rate 136.1 mL/min (90-130); Glucose 243 mg/dL (65-115); Osmolality Calculated 290 mOsm/kg (285-295); Potassium 4.3 mmol/L (3.5-5.1); Sodium 135 mmol/L (136-145)
[2023-11-20] MEDS: magnesium lactate 84 mg Tablet PO (05:18)
[2023-11-20] MEDS: allopurinol 300 mg Tablet PO (05:19)
[2023-11-20] MEDS: sertraline 100 mg Tablet PO (05:19)
[2023-11-20 06:07] LABS: Glucose Point of Care 200 mg/dL (70-110)
[2023-11-20] MEDS: aspirin 325 mg Tablet PO (08:42)
[2023-11-20] MEDS: clopidogrel 75 mg Tablet PO (08:42)
[2023-11-20] MEDS: carvedilol 12.5 mg Tablet PO (08:42)
[2023-11-20] MEDS: pantoprazole DR 40 mg Tablet PO (08:42)
[2023-11-20] MEDS: sacubitril/valsartan 24-26 mg Tablet 4 EACH PO (08:42)
[2023-11-20] MEDS: insulin lispro 100 unit/1 mL SUBCUT (08:43)
--- NOTE | 2023-11-20 09:21 | PM.PN ---
Subjective Subjective: Patient is feeling okay. No new symptoms. Vital signs are remaining stable Medications: Medication Review Details: Current Medications Acetaminophen (Acetaminophen 325 Mg Tablet) 650 mg PO Q6H PRN PRN Reason: Mild/Mod Pain Or Temp >/= 101 Last Admin: 11/18/23 18:14 Dose: 650 mg Al Hydrox/Mg Hydrox/Simethicone (Oimp-Klg-Cwbqxspac-Bl 30 Ml Udc) 30 ml PO Q15M PRN PRN Reason: INDIGESTION Albuterol Sulfate (Albuterol 2.5 Mg/3 Ml Neb) 2.5 mg INHALATION Q4H PRN PRN Reason: shortness of breath or wheezing Allopurinol (Allopurinol 300 Mg Tablet) 300 mg PO QAM [facility] Last Admin: 11/20/23 05:19 Dose: 300 mg Aspirin (Aspirin 325 Mg Tablet) 325 mg PO DAILY [facility] Last Admin: 11/20/23 08:42 Dose: 325 mg Atorvastatin Calcium (Atorvastatin 40 Mg Tablet) 80 mg PO BEDTIME [facility] Last Admin: 11/19/23 20:59 Dose: 80 mg Atropine Sulfate (Atropine 1 Mg/Ml Sdv 1 Ml) 0.5 mg IVP PRN PRN PRN Reason: Symptomatic bradycardia Bisacodyl (Bisacodyl 5 Mg Tablet) 10 mg PO DAILY PRN; Protocol PRN Reason: Constipation (see protocol) Calcium Carbonate (Calcium Carbonate 500 Mg Chew Tablet) 1,000 mg PO Q4H PRN PRN Reason: DYSPEPSI Carvedilol (Carvedilol 12.5 Mg Tablet) 12.5 mg PO BID@ [facility] Last Admin: 11/20/23 08:42 Dose: 12.5 mg Clopidogrel Bisulfate (Clopidogrel 75 Mg Tablet) 75 mg PO DAILY [facility] Last Admin: 11/20/23 08:42 Dose: 75 mg Dextrose (Dextrose 50% Syringe 50 Ml) 25 ml IVP ONCE PRN; Protocol PRN Reason: hypoglycemia protocol Dextrose (Dextrose 50% Syringe 50 Ml) 50 ml IVP PRN PRN; Protocol PRN Reason: hypoglycemia protocol Docusate Sodium (Docusate Sodium 100 Mg Capsule) 100 mg PO BID [facility] Last Admin: 11/20/23 08:43 Dose: Not Given Fentanyl (Fentanyl 50 Mcg/Ml Inj 2ml) 50 mcg IVP PRN PRN PRN Reason: Prior to sheath removal Fluticasone Propionate (Fluticasone Nasal [place] 16gm Btl) 2 spray INTRANASAL DAILY PRN PRN Reason: Allergy Symptoms Furosemide (Furosemide 10 Mg/Ml Sdv 4ml) 40 mg IVP Q24H [facility] Last Admin: 11/19/23 12:32 Dose: 40 mg Dextrose (D5w) 500 mls @ 0 mls/hr IV ONCE PRN; Protocol PRN Reason: Adult Acute Hypoglycemia Prot Insulin Human Lispro (Insulin Lispro 100 Unit/1 Ml) 0 unit SUBCUT BEDTIME [facility]; Protocol Last Admin: 11/19/23 23:04 Dose: 2 unit Insulin Human Lispro (Insulin Lispro 100 Unit/1 Ml) 0 unit SUBCUT TIDWM [facility]; Protocol Last Admin: 11/20/23 08:43 Dose: 4 unit Magnesium Hydroxide (Magnesium Hydroxide 30 Ml Udc) 30 ml PO DAILY PRN PRN Reason: CONSTIPATION Magnesium Lactate (Magnesium Lactate 84 Mg Tablet) 84 mg PO QAM [facility] Last Admin: 11/20/23 05:18 Dose: 84 mg Naloxone HCl (Naloxone 0.4 Mg/Ml Sdv) 0.1 mg IVP Q2M PRN PRN Reason: RESPIRATORY RATE < 8/MIN Ondansetron HCl (Ondansetron 2 Mg/Ml Sdv 2 Ml) 4 mg IVP Q6H PRN PRN Reason: NAUSEA AND VOMITING Pantoprazole Sodium (Pantoprazole Dr 40 Mg Tablet) 40 mg PO DAILY [facility] Last Admin: 11/20/23 08:42 Dose: 40 mg Sacubitril/Valsartan (Sacubitril/Valsartan 24-26 Mg Tablet) 4 each PO BID [facility] Last Admin: 11/20/23 08:42 Dose: 4 each Sertraline HCl (Sertraline 100 Mg Tablet) 100 mg PO QAM [facility] Last Admin: 11/20/23 05:19 Dose: 100 mg Temazepam (Temazepam 15 Mg Capsule) 15 mg PO BEDTIME PRN PRN Reason: INSOMNIA Vitals/I&O/Wt Last Vital Signs Temp 97.7 F 11/20/23 07:20 Pulse 81 11/20/23 07:20 Resp 20 H 11/20/23 07:20 BP 125/77 11/20/23 07:20 Pulse Ox 93 11/20/23 07:20 O2 Del Method Room Air 11/20/23 07:20 FiO2 20 11/20/23 04:25 11/19/23 11/20/23 11/20/23 22:59 06:59 14:59 Intake Total 540 / 900 120 / 120 Output Total 580 / 580 Balance -40 / 320 120 / 120 Weight last 48 hrs Weight 256 lb 12.8 oz Weight 257 lb 7 oz Weight 257 lb 8 oz Weight 255 lb Weight 255 lb Physical Exam Narrative: GENERAL: The patient is alert and oriented times three. Not in any acute distress. HEENT: No significant pallor, icterus or lymphadenopathy.Oral cavity: There are no mucous membrane lesions. NECK: Trachea appears to be central. No masses noted. No JVD or thyromegaly appreciated. RESPIRATORY: Chest is symmetrical. No intercostals muscle retraction or any accessory muscle activation. There is no chest wall tenderness. Breath sounds are heard bilaterally. No rales or rhonchi heard. No evidence of any consolidation. BREASTS: Deferred. HEART: The heart sounds are normal. No S3 or S4. Short systolic murmur in the lower sternal border.No pericardial rub ABDOMEN: No vessel pulsations or distention. No tenderness. No organomegaly appreciated. Bowel sounds are normally heard. : Deferred. RECTAL: Deferred. LYMPHATIC: No lymphadenopathy noted in the neck. EXTREMITIES: No edema or cyanosis. No clubbing. MUSCULOSKELETAL: No acute joint deformities or swelling SKIN: There are no significant rashes or ecchymosis NEUROPSYCHIATRIC: The patient is alert and oriented x3. Appears to be in a good mood. No tremors or rigidity noted. Data 11/19/23 05:11 11/20/23 03:07 Other Labs: Laboratory Last Values WBC 14.51 10^3/uL (3.29-11.43) H 11/19/23 05:11 RBC 5.05 10^6/uL (3.85-5.65) 11/19/23 05:11 Hgb 15.70 g/dL (11.27-16.99) 11/19/23 05:11 Hct 45.9 % (37-53) 11/19/23 05:11 MCV 90.9 fl (82-101) 11/19/23 05:11 MCH 31.1 pg (27-33) 11/19/23 05:11 MCHC 34.2 g/dL (30-55) 11/19/23 05:11 RDW 13.0 % (12.1-15.1) 11/19/23 05:11 Plt Count 154 10^3/cmm (157-399) L 11/19/23 05:11 MPV 11.2 fL (7.4-10.4) H 11/19/23 05:11 Neut % (Auto) 78.6 % 11/19/23 05:11 Lymph % (Auto) 14.1 % 11/19/23 05:11 [place] % (Auto) 6.1 % 11/19/23 05:11 Eos % (Auto) 0.4 % 11/19/23 05:11 Baso % (Auto) 0.2 % 11/19/23 05:11 Neut # (Auto) 11.41 10^3/uL (1.8-7.7) H 11/19/23 05:11 Lymph # (Auto) 2.1 10^3/uL (0.8-4.8) 11/19/23 05:11 [place] # (Auto) 0.9 10^3/uL (0.2-0.9) 11/19/23 05:11 Eos # (Auto) 0.1 10^3/uL (0.0-0.8) 11/19/23 05:11 Baso # (Auto) 0.0 10^3/uL (0.0-0.1) 11/19/23 05:11 Nucleated RBC % (auto) 0 % 11/19/23 05:11 Nucleated RBCs # 0.0 /100WBC 11/19/23 05:11 APTT 66.6 SECONDS (23.9-36.7) H 11/19/23 05:11 Sodium 135 mmol/L (136-145) L 11/20/23 03:07 Potassium 4.3 mmol/L (3.5-5.1) 11/20/23 03:07 Chloride 100 mmol/L (98-107) 11/20/23 03:07 Carbon Dioxide 26 mmol/L (22-29) 11/20/23 03:07 Anion Gap 13.3 (5-19) 11/20/23 03:07 BUN 18 mg/dL (8-23) 11/20/23 03:07 Creatinine 0.6 mg/dL (0.7-1.2) L 11/20/23 03:07 GFR Calculation 136.1 mL/min (90-130) H 11/20/23 03:07 Glucose 243 mg/dL (65-115) H 11/20/23 03:07 POC Glucose 200 mg/dL (70-110) H 11/20/23 05:46 Estimat Average Glucose 206 11/19/23 05:11 Hemoglobin A1c 8.8 % (4.0-6.0) H 11/19/23 05:11 Calculated Osmolality 290 mOsm/kg (285-295) 11/20/23 03:07 Calcium 9.2 mg/dL (8.5-10.5) 11/20/23 03:07 Phosphorus 3.5 mg/dL (2.5-4.5) 11/19/23 05:11 Magnesium 1.7 mg/dL (1.7-2.3) 11/19/23 05:11 Total Bilirubin 0.5 mg/dL (0.15-1.2) 11/18/23 11:34 AST 11 U/L (0-40) 11/18/23 11:34 ALT 25 U/L (0-41) 11/18/23 11:34 Alkaline Phosphatase 120 U/L (40-130) 11/18/23 11:34 Troponin T 5th Gen ng/L 111 ng/L (0-15) H* 11/19/23 21:15 Troponin T Baseline 201 ng/L (0-15) H* 11/18/23 11:34 Troponin T 120 Minute 188.7 ng/L (0-15) H 11/18/23 14:08 Delta Troponin T -12.3 ABS# (0-10) L 11/18/23 14:08 Troponin T Hi Sens 6Hr 184.8 ng/L (0-15) H 11/18/23 20:13 Troponin T Hi Sens 6Hr Delta -16.2 ng/L (0-12) L 11/18/23 20:13 Total Protein 6.5 g/dL (6.6-8.7) L 11/18/23 11:34 Albumin 4.1 g/dL (3.5-5.2) 11/18/23 11:34 Globulin 2.4 g/dL (1.3-4.6) 11/18/23 11:34 Triglycerides 140 mg/dL (0-150) 11/19/23 05:11 Cholesterol 161 mg/dL (0-200) 11/19/23 05:11 LDL Cholesterol, Calc 93 mg/dL (50-129) 11/19/23 05:11 HDL Cholesterol 40 mg/dL (60-100) L 11/19/23 05:11 LDL/HDL Ratio 2.33 RATIO (0.00-3.22) 11/19/23 05:11 Cholesterol/HDL Ratio 4.03 mg/dL (1.0-5.00) 11/19/23 05:11 Urine Color Yellow (Yellow) 11/18/23 18:15 Urine Appearance Clear (CLEAR) 11/18/23 18:15 Urine pH 6 (5-7) 11/18/23 18:15 Ur Specific [place] 1.015 (1.005-1.030) 11/18/23 18:15 Urine Protein Neg (Negative) 11/18/23 18:15 Urine Glucose (UA) 4+ (Normal) H 11/18/23 18:15 Urine Ketones Negative (Negative) 11/18/23 18:15 Urine Blood Trace (Negative) H 11/18/23 18:15 Urine Nitrate Negative (Negative) 11/18/23 18:15 Urine Bilirubin Neg (Negative) 11/18/23 18:15 Urine Urobilinogen 1 mg/dL (Negative) H 11/18/23 18:15 Ur Leukocyte Esterase Negative (Negative) 11/18/23 18:15 Urine RBC 5-10 /hpf (0-2) H 11/18/23 18:15 Urine WBC 0-4 /hpf (0-5) H 11/18/23 18:15 Ur Squamous Epith Cells 0-4 /hpf (0-5) H 11/18/23 18:15 Amorphous Sediment Not Reportable 11/18/23 18:15 Urine Bacteria None /hpf (NONE) 11/18/23 18:15 A&P Assessment and plan (1) Non-ST elevation [place] (NSTEMI): In order to further evaluate the patient is a coronary status and a cardiac catheterization would be appropriate. This was discussed with the patient in detail with the risk and benefits. The risk of bleeding, hematoma, vascular injury, myocardial infarction, myocardial perforation, malignant cardiac arrhythmias ,CVA, renal failure and other concomitant complications were explained in detail. Patient understood this well and consented to proceed Will go ahead and schedule the procedure today. Based on the results, further recommendations will be made (2) Mixed hyperlipidemia: May continue on the current medications. (3) Cardiac resynchronization therapy defibrillator (SILK CONDITIONER-D) in place: The ICD function is found to be appropriate. May continue on the current management. (4) Nonischemic congestive cardiomyopathy: Currently the patient has no evidence of decompensation. Will continue on the current medications. (5) Diabetes: The blood sugar is elevated. Management as per the primary. Qualifiers: Diabetes mellitus complication status: with hyperglycemia Diabetes mellitus termite treater helper insulin use: without termite treater helper use Diabetes mellitus type: type 2 Qualified Code(s): E11.65 - Type 2 diabetes mellitus with hyperglycemia Plan The patient underwent the cardiac catheterization today and was found to have mild coronary artery disease. Based on the findings, it was opted to treat him medically. I will keep him on Plavix for 3 months. Continue other medications as it is. Attestations Medical Necessity Statement*: Patient requires continued hospital stay for close monitoring and further management Coding Level of Care Code 94040 Diagnoses Non-ST elevation [place] (NSTEMI) I21.4 Mixed hyperlipidemia E78.2 Cardiac resynchronization therapy defibrillator (SILK CONDITIONER-D) in place Z95.810 Nonischemic congestive cardiomyopathy I42.0 Type 2 diabetes mellitus with hyperglycemia, without long-term current use of insulin E11.65 Diabetes mellitus complication status: with hyperglycemia Diabetes mellitus termite treater helper insulin use: without mcfp use Diabetes mellitus type: type 2
--- NOTE | 2023-11-20 10:16 | PM.DCS ---
Discharge Providers Date of Admission: 11/18/23 14:36 Date of Discharge: November 20, 2023 Attending Provider at Admission: Rosa Agee MD Attending Provider at Discharge: Khalida Gomez MD Primary Care Provider: ANDRES Pettit Diagnoses at Discharge Discharge Diagnosis (1) Non-ST elevation MA (NSTEMI): Status: Acute (2) Mixed hyperlipidemia: Status: Chronic (3) Cardiac resynchronization therapy defibrillator (MANAGER OF INTERNATIONAL-D) in place: Status: Chronic Permanent problem details: [place] Dr. [place], 07/11/2020 (4) Nonischemic congestive cardiomyopathy: Status: Chronic (5) Diabetes: Status: Chronic Qualifiers: Diabetes mellitus type: type 2 Diabetes mellitus computer terminal operator insulin use: without chcf use Diabetes mellitus complication status: with hyperglycemia Qualified Code(s): E11.65 - Type 2 diabetes mellitus with hyperglycemia Reason for Visit Reason for Visit: Chesp pain, Sob Hospital Course Hospital Course 63 male who was admitted for management and evaluation of non-STEMI, patient went for cardiac cath, coronary cath showed nonobstructive coronary disease mild atherosclerotic disease, patient has history of pacemaker, AICD for reduced ejection fraction nonischemic cardiomyopathy, left ventricular end-diastolic volume was high he was given Lasix IV during hospitalization, he did not require oxygen, he is not experiencing orthopnea and PND before discharge, ICD function is appropriate. Dr. Holder recommended Plavix for 3 months Physical Exam Narrative: Awake and alert Euvolemic Paced rhythm GCS 15 Pleasant cooperative Eating breakfast Discharge Data Studies Completed and Pending Completed Studies During Hospitalization Category Date Time Status CT head wo con* [id number] Routine Cat Scan 11/18/23 15:11 Completed GLOVE WRAPPER request for service Routine Exams 11/19/23 07:00 Completed XR chest 1V portable [id number] Stat Exams 11/18/23 11:16 Completed CV. echo wo/w contrast [id number] Routine Ultrasound 11/19/23 12:33 Completed Radiology Impressions Head CT 11/18/23 15:11 IMPRESSION: 1. No acute intracranial hemorrhage. 2. Left anteromedial cerebellar hypodensity measures about 31 x 24 mm. This may be due to a late acute or subacute CVA. This is new from 08/17/2023. If indicated, an MRI may be helpful. Because it is conspicuous on CT, a hyperacute infarct is much less likely. 3. 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 4. Mild age-related changes. Laboratory Results WBC 14.51 10^3/uL (3.29-11.43) H 11/19/23 05:11 RBC 5.05 10^6/uL (3.85-5.65) 11/19/23 05:11 Hgb 15.70 g/dL (11.27-16.99) 11/19/23 05:11 Hct 45.9 % (37-53) 11/19/23 05:11 MCV 90.9 fl (82-101) 11/19/23 05:11 MCH 31.1 pg (27-33) 11/19/23 05:11 MCHC 34.2 g/dL (30-55) 11/19/23 05:11 RDW 13.0 % (12.1-15.1) 11/19/23 05:11 Plt Count 154 10^3/cmm (157-399) L 11/19/23 05:11 MPV 11.2 fL (7.4-10.4) H 11/19/23 05:11 Neut % (Auto) 78.6 % 11/19/23 05:11 Lymph % (Auto) 14.1 % 11/19/23 05:11 Glades % (Auto) 6.1 % 11/19/23 05:11 Eos % (Auto) 0.4 % 11/19/23 05:11 Baso % (Auto) 0.2 % 11/19/23 05:11 Neut # (Auto) 11.41 10^3/uL (1.8-7.7) H 11/19/23 05:11 Lymph # (Auto) 2.1 10^3/uL (0.8-4.8) 11/19/23 05:11 Glades # (Auto) 0.9 10^3/uL (0.2-0.9) 11/19/23 05:11 Eos # (Auto) 0.1 10^3/uL (0.0-0.8) 11/19/23 05:11 Baso # (Auto) 0.0 10^3/uL (0.0-0.1) 11/19/23 05:11 Nucleated RBC % (auto) 0 % 11/19/23 05:11 Nucleated RBCs # 0.0 /100WBC 11/19/23 05:11 APTT 66.6 SECONDS (23.9-36.7) H 11/19/23 05:11 Sodium 135 mmol/L (136-145) L 11/20/23 03:07 Potassium 4.3 mmol/L (3.5-5.1) 11/20/23 03:07 Chloride 100 mmol/L (98-107) 11/20/23 03:07 Carbon Dioxide 26 mmol/L (22-29) 11/20/23 03:07 Anion Gap 13.3 (5-19) 11/20/23 03:07 BUN 18 mg/dL (8-23) 11/20/23 03:07 Creatinine 0.6 mg/dL (0.7-1.2) L 11/20/23 03:07 GFR Calculation 136.1 mL/min (90-130) H 11/20/23 03:07 Glucose 243 mg/dL (65-115) H 11/20/23 03:07 POC Glucose 200 mg/dL (70-110) H 11/20/23 05:46 Estimat Average Glucose 206 11/19/23 05:11 Hemoglobin A1c 8.8 % (4.0-6.0) H 11/19/23 05:11 Calculated Osmolality 290 mOsm/kg (285-295) 11/20/23 03:07 Calcium 9.2 mg/dL (8.5-10.5) 11/20/23 03:07 Phosphorus 3.5 mg/dL (2.5-4.5) 11/19/23 05:11 Magnesium 1.7 mg/dL (1.7-2.3) 11/19/23 05:11 Total Bilirubin 0.5 mg/dL (0.15-1.2) 11/18/23 11:34 AST 11 U/L (0-40) 11/18/23 11:34 ALT 25 U/L (0-41) 11/18/23 11:34 Alkaline Phosphatase 120 U/L (40-130) 11/18/23 11:34 Troponin T 5th Gen ng/L 111 ng/L (0-15) H* 11/19/23 21:15 Troponin T Baseline 201 ng/L (0-15) H* 11/18/23 11:34 Troponin T 120 Minute 188.7 ng/L (0-15) H 11/18/23 14:08 Delta Troponin T -12.3 ABS# (0-10) L 11/18/23 14:08 Troponin T Hi Sens 6Hr 184.8 ng/L (0-15) H 11/18/23 20:13 Troponin T Hi Sens 6Hr Delta -16.2 ng/L (0-12) L 11/18/23 20:13 Total Protein 6.5 g/dL (6.6-8.7) L 11/18/23 11:34 Albumin 4.1 g/dL (3.5-5.2) 11/18/23 11:34 Globulin 2.4 g/dL (1.3-4.6) 11/18/23 11:34 Triglycerides 140 mg/dL (0-150) 11/19/23 05:11 Cholesterol 161 mg/dL (0-200) 11/19/23 05:11 LDL Cholesterol, Calc 93 mg/dL (50-129) 11/19/23 05:11 HDL Cholesterol 40 mg/dL (60-100) L 11/19/23 05:11 LDL/HDL Ratio 2.33 RATIO (0.00-3.22) 11/19/23 05:11 Cholesterol/HDL Ratio 4.03 mg/dL (1.0-5.00) 11/19/23 05:11 Urine Color Yellow (Yellow) 11/18/23 18:15 Urine Appearance Clear (CLEAR) 11/18/23 18:15 Urine pH 6 (5-7) 11/18/23 18:15 Ur Specific [place] 1.015 (1.005-1.030) 11/18/23 18:15 Urine Protein Neg (Negative) 11/18/23 18:15 Urine Glucose (UA) 4+ (Normal) H 11/18/23 18:15 Urine Ketones Negative (Negative) 11/18/23 18:15 Urine Blood Trace (Negative) H 11/18/23 18:15 Urine Nitrate Negative (Negative) 11/18/23 18:15 Urine Bilirubin Neg (Negative) 11/18/23 18:15 Urine Urobilinogen 1 mg/dL (Negative) H 11/18/23 18:15 Ur Leukocyte Esterase Negative (Negative) 11/18/23 18:15 Urine RBC 5-10 /hpf (0-2) H 11/18/23 18:15 Urine WBC 0-4 /hpf (0-5) H 11/18/23 18:15 Ur Squamous Epith Cells 0-4 /hpf (0-5) H 11/18/23 18:15 Amorphous Sediment Not Reportable 11/18/23 18:15 Urine Bacteria None /hpf (NONE) 11/18/23 18:15 Vitals Last Vital Signs Temp 97.7 F 11/20/23 07:20 Pulse 81 11/20/23 07:20 Resp 20 H 11/20/23 07:20 BP 125/77 11/20/23 07:20 Pulse Ox 93 11/20/23 07:20 O2 Del Method Room Air 11/20/23 07:20 FiO2 20 11/20/23 04:25 Discharge Plan Discharge Patient Disposition: Home Condition: Stable Prescriptions: New clopidogrel 75 mg Tablet 75 mg PO DAILY Qty: 30 2RF furosemide [Lasix] 20 mg tablet 20 mg PO DAILY PRN (Reason: weight gain) Qty: 30 3RF Continued (DME) Blood Glucose Test Strip See Rx Instructions .ROUTE .MEDSUPPLY Qty: 100 11RF Rx Instructions: Check blood sugar 2 x daily and prn (DME) lancets [BD Ultra Fine Lancets] 33 gauge misc See Rx Instructions .ROUTE .MEDSUPPLY Qty: 100 11RF Rx Instructions: check blood sugar twice daily and as needed albuterol sulfate [ProAir HFA] 90 mcg/actuation HFA aerosol inhaler 2 puff INHALATION Q6H PRN (Reason: shortness of breath or wheezing) Qty: 18 2RF (DME) nebulizer machine with tubing and mask See Rx Instructions .Route .MEDSUPPLY Qty: 1 0RF Rx Instructions: As directed sertraline 100 mg tablet 100 mg PO QAM Qty: 30 2RF rosuvastatin 40 mg tablet 40 mg PO BEDTIME Qty: 30 2RF levocetirizine [Xyzal] 5 mg tablet 5 mg PO DAILY Qty: 90 1RF (DME) blood-glucose meter [Blood Glucose Monitoring] Kit See Rx Instructions .ROUTE .MEDSUPPLY Qty: 1 0RF Rx Instructions: As directed; to test 2 x day and prn sacubitril-valsartan 97-103 mg tablet 1 tab PO BID Qty: 180 3RF albuterol sulfate 2.5 mg /3 mL (0.083 %) solution for nebulization 2.5 mg inhalation QID PRN (Reason: shortness of breath or wheezing) Qty: 180 5RF Men's 50 Plus Multivitamin 400-20-370 mcg Tablet 1 tab PO DAILY allopurinol 300 mg tablet 300 mg PO QAM fluticasone propionate [Flonase Allergy Relief] 50 mcg/actuation spray,suspension 2 spray intranasal DAILY PRN (Reason: Allergy Symptoms) Rx Instructions: administer into each nostril magnesium L-lactate 84 mg tablet extended release 84 mg PO QAM dapagliflozin propanediol 10 mg tablet 10 mg PO QAM dulaglutide 1.5 mg/0.5 mL pen injector 1.5 mg SUBCUT Q7D Rx Instructions: ON FRIDAY aspirin 325 mg Tablet 325 mg PO DAILY omeprazole 40 mg capsule,delayed release(DR/EC) 40 mg PO DAILY potassium citrate 10 mEq (1,080 mg) tablet extended release 20 meq PO BID Changed carvedilol 12.5 mg tablet 25 mg PO BID 90 Days Qty: 180 3RF Discharge Orders: Discharge Order (Routine); Ordered 11/20/23 Ordered By: Khalida Gomez Referrals: Joe Holder MD [Physician] - (Your Dr. Holder follow up appointment will be scheduled during Your Gregoria Cottrell appointment. Thank you.) Lucrecia Blandon FNP [Primary Care Provider] - 11/21/23 10:00 am Gregoria Cottrell FNP [Nurse Practitioner] - 11/28/23 10:30 am Patient Instructions: Type 2 Diabetes, Coronary Angioplasty (DC), Opioid Safety, Post Angiogram Home Care Instructions, Post Heart Attack Stoplight Discharge Attestations Time Spent in Discharge Care*: greater than 30 min Status at Discharge: Cognitive status at discharge: cognitively intact, Behavioral status at discharge: cooperative, Quality Metrics Clinical Quality Measures [ No reported AMI, CVA or VTE this stay] Coding Level of Care Code Acute Code for [facility] Fwd Diagnoses Non-ST elevation MA (NSTEMI) I21.4 Mixed hyperlipidemia E78.2 Cardiac resynchronization therapy defibrillator (MANAGER OF INTERN[employer]-D) in place Z95.810 Nonischemic congestive cardiomyopathy I42.0 Type 2 diabetes mellitus with hyperglycemia, without long-term current use of insulin E11.65 Diabetes mellitus type: type 2 Diabetes mellitus chcf insulin use: without computer terminal operator use Diabetes mellitus complication status: with hyperglycemia
== END 2023-11-20 11:25 | disposition home or self-care (01) | DRG 281 ==
LOC: ER 13:12 → CSU 14:46
PROVIDERS: Internal Medicine; Internal Medicine Cardiovascular Disease; Admitting Provider Hospitalist; Emergency Provider Family Medicine; PCP Nurse Practitioner Family; Visit Provider Internal Medicine
PROC: 4A023N7 Measurement of Cardiac Sampling and Pressure, Left Heart, Percutaneous Approach (ICD-10-PCS; principal; 2023-11-19 07:00)
DX: I21.4 Non-ST elevation (NSTEMI) myocardial infarction (principal); F31.81 Bipolar II disorder; I42.8 Other cardiomyopathies; I25.110 Atherosclerotic heart disease of native coronary artery with unstable angina pectoris; J44.9 Chronic obstructive pulmonary disease, unspecified; Z86.16 Personal history of COVID-19; Z95.810 Presence of automatic (implantable) cardiac defibrillator; K21.9 Gastro-esophageal reflux disease without esophagitis; G47.33 Obstructive sleep apnea (adult) (pediatric); Z99.89 Dependence on other enabling machines and devices; I50.9 Heart failure, unspecified; I11.0 Hypertensive heart disease with heart failure; E11.65 Type 2 diabetes mellitus with hyperglycemia; F17.220 Nicotine dependence, chewing tobacco, uncomplicated; J30.9 Allergic rhinitis, unspecified; N20.9 Urinary calculus, unspecified; G89.29 Other chronic pain; M54.42 Lumbago with sciatica, left side; M54.41 Lumbago with sciatica, right side; I49.3 Ventricular premature depolarization; Z79.84 Long term (current) use of oral hypoglycemic drugs; Z86.73 Personal history of transient ischemic attack (TIA), and cerebral infarction without residual deficits; R47.1 Dysarthria and anarthria; R29.701 NIHSS score 1
CPT/HCPCS: 36415; 36416; 70450; 71045; 80048; 80053; 80061; 81001; 82962; 83036; 83735; 84100; 84484; 85025; 85347; 85730; 93005; 93458; 94660; 96365; 96366; 96372; 96375; 96376; 99152; 99153; 99285; A9270; C1769; C1887; C1894; C8929; J1644; J1815; J1940; J2250; J3010; J3490; J7030; Q0163; Q9956; Q9967

== ENCOUNTER → 2023-11-28 10:13 | Outpatient (BNVA) | payer MEDICAID, SELFPAY ==
[2023-11-11 08:10] VITALS: BP 110/60; BMI 42.3
== END ==
PROVIDERS: PCP Nurse Practitioner Family; Visit Provider Nurse Practitioner Family
DX: I21.4 Non-ST elevation (NSTEMI) myocardial infarction (principal); I11.0 Hypertensive heart disease with heart failure; I50.9 Heart failure, unspecified; Z95.0 Presence of cardiac pacemaker; F17.210 Nicotine dependence, cigarettes, uncomplicated
CPT/HCPCS: 36415; 80053; 80061; 82607; 83036; 83735; 84443; 84550; 85025; 99214

== ENCOUNTER → 2023-12-03 12:50 | Outpatient (BNVA) | payer MEDICAID, SELFPAY ==
[2023-11-11 08:10] VITALS: BP 110/60; BMI 42.3
== END ==
PROVIDERS: PCP Nurse Practitioner Family; Visit Provider Anesthesiology Pain Medicine
DX: G89.29 Other chronic pain; M12.812 Other specific arthropathies, not elsewhere classified, left shoulder; M47.22 Other spondylosis with radiculopathy, cervical region; E11.42 Type 2 diabetes mellitus with diabetic polyneuropathy; M47.817 Spondylosis without myelopathy or radiculopathy, lumbosacral region; M51.16 Intervertebral disc disorders with radiculopathy, lumbar region; M47.816 Spondylosis without myelopathy or radiculopathy, lumbar region; Z79.4 Long term (current) use of insulin
CPT/HCPCS: 99214

== ENCOUNTER → 2023-12-22 09:30 | Outpatient (BNVA) | payer MEDICAID, SELFPAY ==
[2023-11-11 08:10] VITALS: BP 110/60; BMI 42.3
== END ==
PROVIDERS: PCP Nurse Practitioner Family; Visit Provider Nurse Practitioner Family
DX: R10.30 Lower abdominal pain, unspecified (principal); J30.9 Allergic rhinitis, unspecified; Z79.899 Other long term (current) drug therapy
CPT/HCPCS: 80053; 81000; 82785; 85025; 86003

== ENCOUNTER 2023-12-24 11:15 | Outpatient (CLI) | payer MEDICAID, SELFPAY ==
[2023-11-11 08:10] VITALS: BP 110/60; BMI 42.3
--- NOTE | 2023-12-24 12:30 | CT_ITS ---
WS: [id number] CT ABDOMEN PELVIS TECHNIQUE: Contrast-enhanced CT of the abdomen and pelvis with coronal and sagittal reformatted image s. CLINICAL INFORMATION: R10.30 - Lower abdominal pain, unspecified COMPARISON: CT 07/02/2023 DLP: 1218.[address] scans at [facility] use at least one of these dose optimization techniques: automated e xposure control; mA and/or kV adjustment per patient size (includes targeted exams where dose is matc hed to clinical indication); or iterative reconstruction. FINDINGS: Diffuse fatty filtration of the liver. Normal portal vein and splenic vein. Gallbladder is contracted . Low-attenuation lesion in the spleen measuring 2.1 cm appears new from 07/02/2023 and likely represe nts splenic cyst. Additional smaller low-attenuation lesion in the inferior spleen measuring 1.0 cm m ay represent cavernous hemangioma. These are new from previous. Consider further evaluation with ult rasound. Slight atelectasis in the lung bases. Normal GE junction. Fatty atrophy of the pancreas. Normal calib er abdominal aorta. Mild aortic calcification. A few sigmoid diverticuli. No evidence of acute divert iculitis. Normal appendix in the RIGHT lower quadrant. No evidence of acute appendicitis. Adrenal glands are normal. No hydronephrosis in either kidney. Fat-containing umbilical hernia. Scler osis S1 segment unchanged. IMPRESSION: 1. Hepatomegaly with diffuse fatty infiltration of the liver. 2. Low-attenuation lesions in the spleen the largest measuring 2.1 cm appears new from previous. Rec ommend further evaluation with ultrasound 3. No hydronephrosis in either kidney. Stable cortical scarring LEFT kidney. 4. Nonobstructing LEFT lower pole renal calculus. 5. Few sigmoid diverticuli. No evidence of acute diverticulitis. 6. No other acute findings.
[2023-12-24] MEDS: iohexol 350 mg/mL 500 mL Btl (per mL) IV (12:39)
[2023-12-24] MEDS: iohexol 350 mg/mL 500 mL Btl (per mL) PO (12:39)
== END 2023-12-24 11:16 | disposition home or self-care (01) ==
LOC: RAD 11:16
PROVIDERS: PCP Nurse Practitioner Family; Visit Provider Nurse Practitioner Family
DX: R10.30 Lower abdominal pain, unspecified (principal); K76.0 Fatty (change of) liver, not elsewhere classified; R16.0 Hepatomegaly, not elsewhere classified; D73.89 Other diseases of spleen; N20.0 Calculus of kidney; K57.30 Diverticulosis of large intestine without perforation or abscess without bleeding
CPT/HCPCS: 74177; Q9967

== ENCOUNTER → 2023-12-25 11:31 | Outpatient (BNVA) | payer MEDICAID, SELFPAY ==
[2023-11-11 08:10] VITALS: BP 110/60; BMI 42.3
== END ==
PROVIDERS: PCP Nurse Practitioner Family; Visit Provider Nurse Practitioner Family
DX: J30.9 Allergic rhinitis, unspecified (principal); J01.01 Acute recurrent maxillary sinusitis
CPT/HCPCS: 82785; 86003

== ENCOUNTER 2024-01-14 09:19 | Outpatient (CLI) | payer MEDICAID, SELFPAY ==
[2023-11-11 08:10] VITALS: BP 110/60; BMI 42.3
--- NOTE | 2024-01-14 10:00 | US_ITS ---
WS: [id number] Complete ABDOMINAL ULTRASOUND HISTORY: D73.89 - Other diseases of spleen COMPARISON: None available. Liver: 14.9 cm in length. Liver appears slightly enlarged and very heterogeneous. No masses were iden tified on the recent CT. Heterogeneous probably all due to areas of fatty infiltration and sparing. N o bile duct dilatation. Portal Vein: Normal hepatopetal flow with monophasic waveform. Gallbladder: Normally distended gallbladder with no stones or wall thickening. CBD: 0.5 cm Pancreas: Not well visualized. Right kidney: 11.2 cm x 5.4 x 6.9 cm. Cortex:1.2 cm. Normal size and echogenicity. No hydronephrosis or mass. Left kidney: 11.0 cm x 4.7 cm x 5.5 cm. Cortex: 1.0 cm. Normal size kidney. Focal cortical scar mid kidney. No hydronephrosis or solid mass. Spleen: 10.1 cm. Normal size spleen. Hyperechoic focus in the spleen measures 1.4 x 1.2 x 1.2 cm. No increased vascularity. This does not exactly correspond to the finding on CT. Echogenic focus appear s to be in the more inferior spleen by ultrasound and in the superior spleen on CT. This may be a sma ll hemangioma or complex cyst. The smaller lesion seen by CT is not appreciated. Aorta and IVC: Unremarkable abdominal aorta and IVC. Impression: 1. Single hyperechoic focus noted in the spleen. This may be a hemangioma. The additional foci noted by CT are not appreciated by ultrasound. As these lesions are new additional follow-up evaluation is recommended. Splenic lesions could potentially be metastatic lesions or hemangiomas. Suggest follow- up evaluation by CT with IV contrast. 2. Normal gallbladder. 3. Heterogeneous liver appears probably due to areas of focal fatty sparing and steatosis.
== END 2024-01-14 09:20 | disposition home or self-care (01) ==
LOC: RAD 09:19
PROVIDERS: PCP Nurse Practitioner Family; Visit Provider Nurse Practitioner Family
DX: D73.89 Other diseases of spleen (principal); K76.0 Fatty (change of) liver, not elsewhere classified
CPT/HCPCS: 76700

== ENCOUNTER → 2024-01-19 11:03 | Outpatient (BNVA) | payer MEDICAID, SELFPAY ==
[2024-03-03 15:38] VITALS: BP 110/60; BMI 42.3
== END ==
PROVIDERS: PCP Nurse Practitioner Family; Visit Provider Nurse Practitioner Family
DX: R11.2 Nausea with vomiting, unspecified (principal)
CPT/HCPCS: 80053; 82150; 83690; 85025

== ENCOUNTER 2024-01-22 08:50 | Outpatient (CLI) | payer MEDICAID, SELFPAY ==
[2023-11-11 08:10] VITALS: BP 110/60; BMI 42.3
--- NOTE | 2024-01-22 10:00 | NM_ITS ---
WS: [email or web address] NUCLEAR MEDICINE GASTRIC STUDY CLINICAL INFORMATION: R11.2 - Nausea with vomiting, unspecified TECHNIQUE: Following oral ingestion of cooked egg mixed with 1.1 mCi technetium 99m sulfur colloid, a nterior images of the stomach were obtained over the course of 90 minutes. Activity curve was perform ed over the course of 90 minutes with linear regression analysis. COMPARISON: None. FINDINGS: Oral ingestion of cooked eggs mixture Tc 99m labeled sulfur colloid Delayed gastric emptying with calculated T1 half emptying 167 minutes (normal 45 to 110 minutes) 26% emptying at 59 minutes 35% emptying at 122 minutes IMPRESSION: Findings compatible with delayed gastric emptying. Recommend correlation for gastroparesis. *Normal median T1 half 90 minutes for solid egg meal (45-110 minutes). Delayed gastric retention is defined as 90% retained at 1 hour, 60% at 2 hours, 30% at 3 hours, and 10% at 4 hours (normal percent gastric retention is 37-90% at 1 hour, 30-60% at 2 hours, and 0-10% a t 4 hours).
== END 2024-01-22 08:51 | disposition home or self-care (01) ==
LOC: RAD 08:51
PROVIDERS: PCP Nurse Practitioner Family; Visit Provider Nurse Practitioner Family
DX: R11.2 Nausea with vomiting, unspecified (principal)
CPT/HCPCS: 78264; A9541

== ENCOUNTER 2024-01-26 15:27 | Outpatient (CLI) | payer MEDICAID, SELFPAY ==
[2023-11-11 08:10] VITALS: BP 110/60; BMI 42.3
[2024-01-26] MEDS: iohexol 350 mg/mL 500 mL Btl (per mL) PO (17:07)
[2024-01-26] MEDS: iohexol 350 mg/mL 500 mL Btl (per mL) IV (17:21)
--- NOTE | 2024-01-26 17:30 | CT_ITS ---
WS: [id number] CT CHEST, ABDOMEN AND PELVIS WITH CONTRAST HISTORY: R05.3 - Chronic cough, OTHER DISEASES OF SPLEEN TECHNIQUE: Contiguous 5 mm axial imaging performed through the chest, abdomen and pelvis with IV cont rast, oral contrast has been provided. Coronal and sagittal reformats chest. Coronal and sagittal ref ormats through the abdomen and pelvis. All CT scans at [facility] use at least one of these d ose optimization techniques: automated exposure control; mA and/or kV adjustment per patient size (in cludes targeted exams where dose is matched to clinical indication); or iterative reconstruction. CONTRAST: Omnipaque 350; 100 mL IV. DLP: 1542.29 mGy.cm COMPARISON: 12/24/2023, 04/06/[address]: Lungs are well expanded. Mild peripheral interstitial thickening is diffuse and probably re lated to a history of smoking. There is no mass or pneumonia. No suspicious pulmonary nodule. No pleu ral effusion. LEFT heart is moderately enlarged. Defibrillator and cardiac pacer wires are noted. No pericardial effusion. Mild atherosclerosis aorta. Pulmonary artery size is normal. No mediastinal or hilar adenopathy. No axillary lymph nodes. Small hiatal hernia. Abdomen CT: Mild hepatic steatosis. Normal portal vein. Normal gallbladder. Normal portal vein. Splee n is normal size and mildly heterogeneous. Previously described low-attenuation masses within the spl een are reidentified. The largest in the anterior spleen is decreased in size from 2.0 to 1.5 cm. The re is an additional smaller subcentimeter low-attenuation nodule in the more inferior spleen which is unchanged. Normal adrenal glands. Fatty replacement of the pancreas. No pancreatic duct dilatation. Mild bilateral renal atrophy. No solid mass. No obstruction. Nonobstructing 8 mm calcification lower pole LEFT kidney. Focal scarring cortical thinning involving the mid LEFT kidney. Moderate atheroscle rosis aorta. Stomach is well distended with oral contrast. There is also good contrast within the small bowel. No obstructive pattern. There is mild circumferential narrowing of the antrum which is is similar to the prior study. There is also a tiny focus of air in the anterior mucosa. Not a lot of inflammation. Th is is [id number]. Appendix is normal. No significant diverticular disease. No ascites or adenopathy. Pelvic CT: No free fluid or adenopathy within the pelvis. Urinary bladder is mildly distended. No bernabe e fluid. Moderate thoracic and lumbar spondylitic changes. Sclerotic focus in S1 reidentified and stable over multiple prior examinations. Probably representing a benign bone island. IMPRESSION: 1. Circumferential narrowing of the stomach antrum with a tiny focus of air in the mucosa. Suspect t his is probably a small gastric ulcer. With the circumferential narrowing endoscopy could be obtained for further evaluation. There is not a lot of adjacent inflammation and this is [id number] but is narrowed. Not causing a significant obstruction. 2. No free air or adenopathy. 3. Mild chronic peripheral interstitial thickening is probably related to a history of smoking. 4. Focal cortical thinning and scarring lateral LEFT kidney with a nonobstructing lower pole calcifi cation. 5. Normal sized spleen with low-attenuation masses. These masses have either decreased in size or re mained the same since 12/24/2013. 6. Mild atherosclerosis aorta.
== END 2024-01-26 15:28 | disposition home or self-care (01) ==
LOC: RAD 15:27
PROVIDERS: PCP Nurse Practitioner Family; Visit Provider Nurse Practitioner Family
DX: R05.3 Chronic cough (principal); D73.89 Other diseases of spleen; K31.89 Other diseases of stomach and duodenum; Z87.891 Personal history of nicotine dependence; N28.89 Other specified disorders of kidney and ureter
CPT/HCPCS: 71260; 74177; Q9967

== ENCOUNTER 2024-02-05 10:04 | Outpatient (CLI) | payer MEDICAID, SELFPAY ==
[2023-11-11 08:10] VITALS: BP 110/60; BMI 42.3
--- NOTE | 2024-02-05 10:00 | CT_ITS ---
WS: [id number] LDCT LUNG CANCER SCREENING TECHNIQUE: Noncontrast CT of the chest with coronal and sagittal reformatted images. CLINICAL INFORMATION: screening COMPARISON: 01/26/2024 DLP: 117.81 mGy.cm DIvol: Mean CTDIvol: 3.00 (mGy) All CT scans at [facility] use at least one of these dose optimization techniques: automat ed exposure control; mA and/or kV adjustment per patient size (includes targeted exams where dose is matched to clinical indication); or iterative reconstruction. FINDINGS: Tiny subpleural nodule LEFT lung apex. 4 mm noncalcified nodule LEFT upper lobe. Few additi onal tiny scattered micronodules. Cardiomegaly. Normal caliber thoracic aorta. Aortic calcification. Coronary calcification. AICD. No m ediastinal or hilar lymphadenopathy. No axillary lymphadenopathy. Adrenal glands are normal. Small esophageal hiatal hernia. Fatty atrophy of the pancreas. Normal sple en. Mild thoracic curve. Mild thoracic kyphosis. Hypertrophic changes thoracic spine. IMPRESSION: CT/CT lung screening [id number] LUNG-RADS: 2-Benign Appearance or Behavior FOLLOW UP: 12 Month: Continue annual screening with LDCT
== END 2024-02-05 10:05 | disposition home or self-care (01) ==
LOC: RAD 10:05
PROVIDERS: PCP Nurse Practitioner Family; Visit Provider Nurse Practitioner Family
DX: Z12.2 Encounter for screening for malignant neoplasm of respiratory organs (principal); Z87.891 Personal history of nicotine dependence
CPT/HCPCS: 71271; 80053; 82150; 83690; 85025

== ENCOUNTER 2024-02-18 15:46 | Emergency (ER) | payer MEDICAID, SELFPAY ==
[2023-11-11 08:10] VITALS: BP 110/60; BMI 42.3
[2024-02-18 15:49] VITALS: BP 98/63; PULSE 71; RESP 18; TEMP 36.6; O2SAT 97; BMI 39.9
[2024-02-18 16:21] LABS: Basophils % 0.2 %; Eosinophils # 0.1 10^3/uL (0.0-0.8); Hematocrit 48.9 % (37-53); Lymphocytes # 1.6 10^3/uL (0.8-4.8); Lymphocytes % 11.3 %; Mean Corpuscular HGB Conc 33.7 g/dL (30-55); Mean Corpuscular Hemoglobin 30.6 pg (27-33); Mean Corpuscular Volume 90.6 fl (82-101); Mean Platelet Volume 11.4 fL (7.4-10.4); Monocytes # 0.9 10^3/uL (0.2-0.9); Monocytes % 6.5 %; Neutrophils # 11.09 10^3/uL (1.8-7.7); Neutrophils % 80.6 %; Nucleated Red Blood Cells % 0 %; Platelet Count 165 10^3/cmm (157-399); Red Cell Distribution Width 13.5 % (12.1-15.1); White Blood Count 13.76 10^3/uL (3.29-11.43)
[2024-02-18 16:25] LABS: Add Urine Microscopic? NO; Charge for UA Resulting for Rev
[2024-02-18 16:45] LABS: Alanine Aminotransferase 25 U/L (0-41); Albumin Level 4.1 g/dL (3.5-5.2); Alkaline Phosphatase 105 U/L (40-130); Anion Gap 14.4 (5-19); Aspartate Amino Transferase 21 U/L (0-40); Blood Urea Nitrogen 12 mg/dL (8-23); Calcium 9.7 mg/dL (8.5-10.5); Carbon Dioxide 26 mmol/L (22-29); Chloride 101 mmol/L (98-107); Creatinine Clr Calc Pharmacy 86.0312; Globulin 2.9 g/dL (1.3-4.6); Glomerular Filtration Rate 75.5 mL/min (90-130); Glucose 256 mg/dL (65-115); Lipase 52 U/L (13-60); Osmolality Calculated 293 mOsm/kg (285-295); Potassium 4.4 mmol/L (3.5-5.1); Sodium 137 mmol/L (136-145); Total Bilirubin 0.4 mg/dL (0.15-1.2)
--- NOTE | 2024-02-18 16:50 | ED_ITS ---
HPI - Abdominal Pain 2 General: Chief Complaint: Abdominal Pain Stated Complaint: abd pain, diarrhea, nausea Time Seen by Provider: 02/18/24 16:47 Source: patient Mode of arrival: ambulatory History of Present Illness: 63-year-old male [facility] with complaints of abdominal pain nausea and diarrhea that began yesterday is also had some palpitations. He denies any medic easier melena. Complaints refers most of his symptoms to the lower portion of the abdomen. No flank pain no hematuria MD elicited complaint: abdominal pain Onset (ago): day(s) (1) Location: None Quality: cramping Exacerbating factors: nothing Relieving factors: nothing Associated Symptoms: Reports diarrhea and nausea; Denies anorexia, belching, bloating, change in bowel habits, change in stool character, chills, coffee ground emesis, constipation, GI cramping, dyspepsia, dysuria, excessive flatus, fever(s), heartburn, hematochezia, hematuria, hematemesis, fecal incontinence, loose stools, melena, poor appetite, syncope and vomiting Review of Systems 2 Const: Denies: fever(s) or chills Card: Denies: chest pain or syncope Resp: Denies: dyspnea GI: Reports: abdominal pain, nausea and diarrhea; Denies: vomiting, hematemesis, coffee ground emesis, heartburn, constipation, bloating, GI cramping, belching, excessive flatus, fecal incontinence, change in bowel habits, change in stool character, hematochezia or melena : Denies: flank pain, dysuria, urinary frequency, urinary urgency or hematuria Musc: Denies: neck pain or back pain Skin/Breast: Denies: rash PFSH ED 2 PFSH: Medical History Allergic rhinitis Bipolar II disorder Diabetes Non-ST elevation OK (NSTEMI) Uses bilevel positive airway pressure (BPAP) ventilation at home 12/8cm Dysarthria Unstable angina Nonischemic congestive cardiomyopathy Chronic low back pain Elevated blood uric acid level History of sleep study 2017 at [facility]: Optimal pressure settings with BiPAP found to be 12/8 cm COPD (chronic obstructive pulmonary disease) COVID-19 Wound infection following procedure infection with defibrillator lead revision, removed , scarring left subclavian area from this Cardiac resynchronization therapy defibrillator (PROCESS TECH-D) in place [employer] [address]. [place], 07/11/2020 GERD (gastroesophageal reflux disease) ALBERTO (obstructive sleep apnea) C. difficile diarrhea Cataracts, bilateral CHF (congestive heart failure) Urolithiasis Multi stone former, calcium oxalate mono and dihydrate. Also calcium phosphate. Multiple interventions including endoscopy with laser lithotripsy and ESWL. Metabolic treatment with potassium citrate Hemorrhoids Psychiatric care Right ureteral calculus Osteoarthritis of hands, bilateral Cardiomyopathy Mixed hyperlipidemia Pacemaker Hypertension Surgical History S/P epidural steroid injection Status post hemorrhoidectomy Hx of umbilical hernia repair Hx of lithotripsy History of urethral stent H/O esophagogastroduodenoscopy (02/27/21) gastritis, duodenitis History of colonoscopy (02/27/21) descending colon polyp, hemorrhoids History of carpal tunnel release of both wrists History of permanent cardiac pacemaker placement Hx of cataract surgery Hx of shoulder surgery Family History Grandfather CAD (coronary artery disease) Brother Cancer colon cancer Diabetes Mother Diabetes Father No problems noted. Other Hypertension Rheumatoid arthritis Social History Smoking and tobacco/nicotine status: current every day tobacco/nicotine user cigarettes [ Other cigarette details: quit smoking cigarettes ] and smokeless tobacco Smokeless tobacco user: chewing tobacco Smokeless tobacco details: 3/4 can day Second hand smoke exposure: No Alcohol intake: former Year of sobriety/quit date alcohol: 1997 Substance/Drug Use: former Date of last use: 1997 Caregiver/support person: Yes Lives independently: Yes Household members: spouse Marital status: service: No Current occupational status: disabled Current gender identity: Male Special fernando needs: No Agree to transfusion: Yes Physical Exam 2 Const: GENERAL APPEARANCE: cooperative and comfortable O RIENTATION/CONSCIOUSNESS: Yes awake, Yes oriented to person, Yes oriented to place and Yes oriented to time HENMT: COMMON NORMALS: normocephalic, atraumatic and hearing grossly normal bilaterally HEAD & SCALP: normocephalic and atraumatic Resp: COMMON NORMALS: normal respiratory effort, No retractions, No use of accessory muscles and clear to auscultation bilaterally AUSCULTATION: clear to auscultation bilaterally Cardio: COMMON NORMALS: regular rate, regular rhythm and No murmurs present (Cardio) RATE: regular rate RHYTHM: regular rhythm GI: COMMON NORMALS: No hepatosplenomegaly present AUSCULTATION: Yes normoactive bowel sounds PALPATION: Yes Tenderness to palpation present (GI) (Suprapubic), No Guarding due to palpation present (GI) and Yes No hepatosplenomegaly present Extremity: COMMON NORMALS: normal to inspection, capillary refill normal, no clubbing, cyanosis or edema, no calf tenderness and no pedal edema Neuro: SENSORIUM/ORIENTATION: Yes oriented to person, Yes oriented to place and Yes oriented to time Skin: COMMON NORMALS: no rashes or lesions noted GENERAL SKIN EXAM: no rashes or lesions noted Course 2 Vital Signs: Vital signs: Vital Signs Temperature 97.8 F 02/18/24 15:49 Pulse Rate 78 02/18/24 17:09 Respiratory Rate 16 02/18/24 17:09 Blood Pressure 147/90 02/18/24 18:09 Pulse Oximetry 95 02/18/24 17:09 Oxygen Delivery Me thod Room Air 02/18/24 17:09 MDM - Abdominal Pain Medical Decision Making Mild elevation in white count. CT does not show any acute findings. CMP does not show clinically significant abnormalities. Blood sugar is elevated patient is nondiabetic. Denies any skin sores. No respiratory symptoms. His auscultation of the lungs was normal. Does have a small umbilical hernia which is easily reducible. Encourage fluids monitor blood sugars closely return if is any worsening or change symptoms suspect some this may be gastroenteritis. Medical Records I reviewed the patient's medical records. Lab Data I reviewed the patient's lab results. 02/18/24 16:14 02/18/24 16:14 Labs/Radiology: Radiology Impressions Abdomen/Pelvis CT 02/18/24 17:04 IMPRESSION: 1. No acute findings. 2. Small left renal stone 3. Umbilical hernia Laboratory Results WBC 13.76 10^3/uL (3.29-11.43) H 02/18/24 16:14 RBC 5.40 10^6/uL (3.85-5.65) 02/18/24 16:14 Hgb 16.50 g/dL (11.27-16.99) 02/18/24 16:14 Hct 48.9 % (37-53) 02/18/24 16:14 MCV 90.6 fl (82-101) 02/18/24 16:14 MCH 30.6 pg (27-33) 02/18/24 16:14 MCHC 33.7 g/dL (30-55) 02/18/24 16:14 RDW 13.5 % (12.1-15.1) 02/18/24 16:14 Plt Count 165 10^3/cmm (157-399) 02/18/24 16:14 MPV 11.4 fL (7.4-10.4) H 02/18/24 16:14 Neut % (Auto) 80.6 % 02/18/24 16:14 Lymph % (Auto) 11.3 % 02/18/24 16:14 [place] % (Auto) 6.5 % 02/18/24 16:14 Eos % (Auto) 1.0 % 02/18/24 16:14 Baso % (Auto) 0.2 % 02/18/24 16:14 Neut # (Auto) 11.09 10^3/uL (1.8-7.7) H 02/18/24 16:14 Lymph # (Auto) 1.6 10^3/uL (0.8-4.8) 02/18/24 16:14 [place] # (Auto) 0.9 10^3/uL (0.2-0.9) 02/18/24 16:14 Eos # (Auto) 0.1 10^3/uL (0.0-0.8) 02/18/24 16:14 Baso # (Auto) 0.0 10^3/uL (0.0-0.1) 02/18/24 16:14 Nucleated RBC % (auto) 0 % 02/18/24 16:14 Nucleated RBCs # 0.0 /100WBC 02/18/24 16:14 Sodium 137 mmol/L (136-145) 02/18/24 16:14 Potassium 4.4 mmol/L (3.5-5.1) 02/18/24 16:14 Chloride 101 mmol/L (98-107) 02/18/24 16:14 Carbon Dioxide 26 mmol/L (22-29) 02/18/24 16:14 Anion Gap 14.4 (5-19) 02/18/24 16:14 BUN 12 mg/dL (8-23) 02/18/24 16:14 Creatinine 1.0 mg/dL (0.7-1.2) 02/18/24 16:14 GFR Calculation 75.5 mL/min (90-130) L 02/18/24 16:14 Glucose 256 mg/dL (65-115) H 02/18/24 16:14 Calculated Osmolality 293 mOsm/kg (285-295) 02/18/24 16:14 Calcium 9.7 mg/dL (8.5-10.5) 02/18/24 16:14 Total Bilirubin 0.4 mg/dL (0.15-1.2) 02/18/24 16:14 AST 21 U/L (0-40) 02/18/24 16:14 ALT 25 U/L (0-41) 02/18/24 16:14 Alkaline Phosphatase 105 U/L (40-130) 02/18/24 16:14 Total Protein 7.0 g/dL (6.6-8.7) 02/18/24 16:14 Albumin 4.1 g/dL (3.5-5.2) 02/18/24 16:14 Globulin 2.9 g/dL (1.3-4.6) 02/18/24 16:14 Lipase 52 U/L (13-60) 02/18/24 16:14 Urine Color Light yellow (Yellow) 02/18/24 16:04 Urine Appearance Clear (CLEAR) 02/18/24 16:04 Urine pH 6 (5-7) 02/18/24 16:04 Ur Specific [place] 1.015 (1.005-1.030) 02/18/24 16:04 Urine Protein Neg (Negative) 02/18/24 16:04 Urine Glucose (UA) 4+ (Normal) H 02/18/24 16:04 Urine Ketones Negative (Negative) 02/18/24 16:04 Urine Blood Neg (Negative) 02/18/24 16:04 Urine Nitrate Negative (Negative) 02/18/24 16:04 Urine Bilirubin Neg (Negative) 02/18/24 16:04 Urine Urobilinogen Norm mg/dL (Negative) 02/18/24 16:04 Ur Leukocyte Esterase Negative (Negative) 02/18/24 16:04 All radiology interpretation(s) finalized by discharge Discharge Plan Discharge Patient Disposition: Home Clinical Impression: Abdominal pain Condition: Stable Prescriptions: New promethazine 25 mg tablet 25 mg PO Q6H PRN (Reason: nausea and vomiting) Qty: 20 0RF No Action (DME) Blood Glucose Test Strip See Rx Instructions .ROUTE .MEDSUPPLY Qty: 100 11RF Rx Instructions: Check blood sugar 2 x daily and prn (DME) lancets [BD Ultra Fine Lancets] 33 gauge misc See Rx Instructions .ROUTE .MEDSUPPLY Qty: 100 11RF Rx Instructions: check blood sugar twice daily and as needed sertraline 100 mg tablet 100 mg PO QAM Qty: 30 2RF albuterol sulfate [ProAir HFA] 90 mcg/actuation HFA aerosol inhaler 2 puff INHALATION Q6H PRN (Reason: shortness of breath or wheezing) Qty: 18 2RF (DME) nebulizer machine with tubing and mask See Rx Instructions .Route .MEDSUPPLY Qty: 1 0RF Rx Instructions: As directed levocetirizine [Xyzal] 5 mg tablet 5 mg PO DAILY Qty: 90 1RF Entresto 97-103 mg tablet 1 tab PO BID scopolamine base 1 mg over 3 days patch 3 day 1 patch transdermal Q3D PRN (Reason: nausea) Qty: 10 0RF allopurinol 300 mg tablet 300 mg PO QAM Qty: 90 1RF carvedilol 25 mg tablet 25 mg PO BID 90 Days Qty: 180 1RF ondansetron HCl 8 mg tablet 8 mg PO TID PRN (Reason: nausea and vomiting) Qty: 90 0RF pantoprazole [Protonix] 40 mg tablet,delayed release (DR/EC) 40 mg PO BID 56 Days Qty: 112 0RF ibuprofen 800 mg tablet 800 mg PO Q8H Qty: 30 0RF sulfamethoxazole-trimethoprim [Bactrim DS] 800-160 mg tablet 1 tab PO BID 7 Days Qty: 14 0RF insulin glargine [Lantus Solostar U-100 Insulin] 100 unit/mL (3 mL) insulin pen 15 unit SUBCUT DAILY Qty: 15 0RF (DME) blood-glucose meter [Blood Glucose Monitoring] Kit See Rx Instructions .ROUTE .MEDSUPPLY Qty: 1 0RF Rx Instructions: As directed; to test 2 x day and prn albuterol sulfate 2.5 mg /3 mL (0.083 %) solution for nebulization 2.5 mg inhalation QID PRN (Reason: shortness of breath or wheezing) Qty: 180 5RF omega 2-ynw-iut-fish oil [Fish Oil] 300-1,000 mg capsule 1 cap PO DAILY Qty: 90 1RF potassium citrate 10 mEq (1,080 mg) tablet extended release See Rx Instructions .ROUTE .COMPLEX Qty: 120 5RF Dose Instruction: Take 2 tablets by mouth twice daily Rx Instructions: Take 2 tablets by mouth twice daily erythromycin 250 mg capsule,delayed release(DR/EC) 250 mg PO TID 10 Days Qty: 30 0RF Rx Instructions: new order. bhupendra Ozempic 0.25 mg or 0.5 mg (2 mg/3 mL) pen injector 0.5 mg SUBCUT .weekly Qty: 3 0RF metoclopramide HCl [Reglan] 10 mg tablet 10 mg PO Q6H PRN (Reason: nausea and vomiting) Qty: 60 0RF methylprednisolone [Medrol (Loki)] 4 mg tablets,dose pack See Rx Instructions PO PER PKG DIR Qty: 21 0RF Rx Instructions: PO PER PKG DIR for 6 days rosuvastatin 40 mg tablet See Rx Instructions .ROUTE .COMPLEX Qty: 30 5RF Dose Instruction: TAKE 1 TABLET BY MOUTH AT BEDTIME Rx Instructions: TAKE 1 TABLET BY MOUTH AT BEDTIME dapagliflozin propanediol 10 mg tablet See Rx Instructions .ROUTE .COMPLEX Qty: 90 1RF Dose Instruction: Take 1 tablet by mouth once daily Rx Instructions: Take 1 tablet by mouth once daily Men's 50 Plus Multivitamin 400-20-370 mcg Tablet 1 tab PO DAILY fluticasone propionate [Flonase Allergy Relief] 50 mcg/actuation spray,suspension 2 spray intranasal DAILY PRN (Reason: Allergy Symptoms) Rx Instructions: administer into each nostril magnesium L-lactate 84 mg tablet extended release 84 mg PO QAM dapagliflozin propanediol 10 mg tablet 10 mg PO QAM aspirin 325 mg Tablet 325 mg PO DAILY clopidogrel 75 mg Tablet 75 mg PO DAILY Qty: 30 2RF Lasix 20 mg tablet 20 mg PO DAILY PRN (Reason: weight gain) Qty: 30 3RF Discharge Orders: Discharge ED (Routine); Ordered 02/18/24 Ordered By: Andre Olvera Referrals: Lucrecia Blandon FNP [Primary Care Provider] - Patient Instructions: Clear Liquid Diet (ED), Abdominal Pain (ED), Opioid Safety, Pain Management Activity Restrictions/Additional Instructions: Thank you for choosing [facility] for your healthcare needs today. Please realize this is an emergency room and that we are providing you with a medical screening exam and this may not be complete and all inclusive of all the testing and or work up that you may need to determine your ailment or severity of your illness. It is very important that you follow up as instructed or that you return to the Emergency Department should you have concerns or if your condition changes or worsens in any way. You are seen today for abdominal pain there was a slight elevation in your white count but the CT of your abdomen was normal. Recommend clear liquid diet for next 24 to 48 hours and advance as tolerated symptoms worsen or change return to the emergency room Coding Level of Care Code ED [employer] for Ck Crooks
[2024-02-18 16:52] LABS: Bilirubin Urine Neg (Negative); Blood Urine Neg (Negative); Glucose Urine UA 4+ (Normal); Ketones Urine Negative (Negative); Leukocyte Esterase Urine Negative (Negative); Nitrate Urine Negative (Negative); Protein Urine Neg (Negative); Specific Gravity, Urine 1.015 (1.005-1.030); Urine Appearance Clear (CLEAR); Urine Color Light yellow (Yellow); Urobilinogen Urine Norm (Negative); pH Urine 6 (5-7)
[2024-02-18] MEDS: lidocaine 2% viscous 15 ML, aluminum-mag hydrox-simethicon 30 ML, sucralfate oral liq 1 GM PO (17:03)
--- NOTE | 2024-02-18 17:04 | CTR_ITS ---
PROCEDURE INFORMATION: Exam: CT Abdomen And Pelvis Without Contrast Exam date and time: 02/18/2024 5:18 PM Age: 63 years old Clinical indication: Abdominal pain; Generalized; Prior surgery; Surgery date: 6+ months; Surgery type: Hernia TECHNIQUE: Imaging protocol: Computed tomography of the abdomen and pelvis without contrast. Radiation optimization: All CT scans at this facility use at least one of these dose optimization techniques: automated exposure control; mA and/or kV adjustment per patient size (includes targeted exams where dose is matched to clinical indication); or iterative reconstruction. COMPARISON: CT chest abdpel w/*[id number] 01/26/2024 5:14 PM RADIATION DOSE METRICS: Total DLP (mGy-cm): 1137.56 FINDINGS: Lungs: Lung bases are clear. No pleural effusion. Liver: Normal. No mass. Gallbladder and bile ducts: Normal. No calcified stones. No ductal dilation. Pancreas: Normal. No ductal dilation. Spleen: Normal. No splenomegaly. Adrenal glands: Normal. No mass. Kidneys and ureters: There is a 7 mm stone in the lower pole of the left kidney. I see no ureteral stone or dilatation. Stomach and bowel: Unremarkable. No obstruction. No mucosal thickening. Appendix: No evidence of appendicitis. Intraperitoneal space: Unremarkable. No free air. No significant fluid collection. Vasculature: Unremarkable. No abdominal aortic aneurysm. Lymph nodes: Unremarkable. No enlarged lymph nodes. Urinary bladder: Unremarkable as visualized. Reproductive: Unremarkable as visualized. Bones/joints: Unremarkable. No acute fracture. Soft tissues: There is a small umbilical hernia containing mesenteric fat. CT/CT abdomen pelvis wo con [id number] IMPRESSION: 1. No acute findings. 2. Small left renal stone 3. Umbilical hernia
[2024-02-18] MEDS: sodium chloride 0.9% 1,000 ML 999 ML IV (17:08)
[2024-02-18 17:09] VITALS: BP 158/112; PULSE 78; RESP 16; O2SAT 95
[2024-02-18 18:09] VITALS: BP 147/90
== END 2024-02-18 18:09 | disposition home or self-care (01) ==
PROVIDERS: Emergency Medicine; Emergency Provider Family Medicine; PCP Nurse Practitioner Family
DX: R10.30 Lower abdominal pain, unspecified (principal); K42.9 Umbilical hernia without obstruction or gangrene; Z79.02 Long term (current) use of antithrombotics/antiplatelets; Z79.82 Long term (current) use of aspirin; Z79.4 Long term (current) use of insulin; Z79.85 Long-term (current) use of injectable non-insulin antidiabetic drugs; F17.220 Nicotine dependence, chewing tobacco, uncomplicated; J44.9 Chronic obstructive pulmonary disease, unspecified; I25.2 Old myocardial infarction; E11.9 Type 2 diabetes mellitus without complications; I42.0 Dilated cardiomyopathy; I11.0 Hypertensive heart disease with heart failure; I50.9 Heart failure, unspecified; E78.2 Mixed hyperlipidemia; Z95.0 Presence of cardiac pacemaker
CPT/HCPCS: 36415; 74176; 80053; 81003; 83690; 85025; 96360; 99284; J7030

== ENCOUNTER → 2024-02-20 09:36 | Outpatient (BNVA) | payer MEDICAID, SELFPAY ==
[2023-11-11 08:10] VITALS: BP 110/60; BMI 42.3
== END ==
PROVIDERS: PCP Nurse Practitioner Family; Visit Provider Podiatrist Foot & Ankle Surgery
DX: M77.42 Metatarsalgia, left foot; M24.572 Contracture, left ankle; E11.9 Type 2 diabetes mellitus without complications; Z79.4 Long term (current) use of insulin
CPT/HCPCS: 73630

== ENCOUNTER 2024-02-27 07:50 | Emergency (ER) | payer MEDICAID, SELFPAY ==
[2023-11-11 08:10] VITALS: BP 110/60; BMI 42.3
--- NOTE | 2024-02-27 07:52 | CTR_ITS ---
PROCEDURE INFORMATION: Exam: CT Head Without Contrast Exam date and time: 02/27/2024 7:51 AM Age: 63 years old Clinical indication: Stroke-like symptoms; Altered mental status/memory loss and speech disturbance; Additional info: Stroke like symptoms TECHNIQUE: Imaging protocol: Computed tomography of the head without contrast. Total images: 300 Radiation optimization: All CT scans at this facility use at least one of these dose optimization techniques: automated exposure control; mA and/or kV adjustment per patient size (includes targeted exams where dose is matched to clinical indication); or iterative reconstruction. Other technique: STROKE PROTOCOL was implemented. COMPARISON: CT head wo con* [id number] 11/18/2023 10:53 PM RADIATION DOSE METRICS: Total DLP (mGy-cm): 1082.28 FINDINGS: Brain: Areas of encephalomalacia present within the cerebellum. Cerebral ventricles: No ventriculomegaly. Paranasal sinuses: Visualized sinuses are unremarkable. No fluid levels. Mastoid air cells: Visualized mastoid air cells are well aerated. Orbital cavities: Prior bilateral lens replacements noted. Bones/joints: Unremarkable. No acute fracture. Soft tissues: Unremarkable. CT/CT head wo con* [id number] IMPRESSION: No acute intracranial pathology detected. ASSESSMENT: ASPECTS ([place] Stroke Program Early CT Score) is 10.
[2024-02-27 07:53] VITALS: BP 141/85; PULSE 72; RESP 18; TEMP 36.1; O2SAT 93; BMI 36.5
--- NOTE | 2024-02-27 08:01 | ECG_ITS ---
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 Measurements Intervals [place] Rate: 70 P: 59 MN: 169 QRS: 190 QRSD: 198 T: 52 QT: 472 QTc: 510 Interpretive Statements ELECTRONIC ATRIAL PACEMAKER ELECTRONIC VENTRICULAR PACEMAKER ABNORMAL RHYTHM ECG Compared to ECG 11/18/2023 17:06:34 Ventricular premature complex(es) no longer present Electronically Signed On 02-27-2024 16:59:49 CDT by Joe Holder M.D. [email or web address]
--- NOTE | 2024-02-27 08:01 | XR_ITS ---
WS: [id number] Exam: XR chest 1V portable [id number] Date/Time of Exam: 02/27/2024 8:05 AM Reason For Exam: cva symptoms Comparison 11/18/2023. The lungs are fully expanded and clear. Mild cardiac enlargement unchanged. Right-sided cardiac pacer with numerous leads identified. No pleural effusions. Partial resection of the distal LEFT clavicle. Bony structures are otherwise unremarkable. IMPRESSION: 1. Mild cardiac enlargement unchanged. No acute process.
[2024-02-27 08:11] LABS: Basophils % 0.3 %; Eosinophils # 0.1 10^3/uL (0.0-0.8); Eosinophils % 0.6 %; Hematocrit 44.3 % (37-53); Lymphocytes % 15.6 %; Mean Corpuscular HGB Conc 34.3 g/dL (30-55); Mean Corpuscular Hemoglobin 30.6 pg (27-33); Mean Corpuscular Volume 89.1 fl (82-101); Mean Platelet Volume 10.8 fL (7.4-10.4); Neutrophils # 9.15 10^3/uL (1.8-7.7); Neutrophils % 72.9 %; Nucleated Red Blood Cells % 0 %; Platelet Count 281 10^3/cmm (157-399); Red Blood Count 4.97 10^6/uL (3.85-5.65); Red Cell Distribution Width 13.6 % (12.1-15.1); White Blood Count 12.54 10^3/uL (3.29-11.43)
[2024-02-27 08:16] VITALS: BP 141/85; PULSE 70; RESP 27; O2SAT 94
--- NOTE | 2024-02-27 08:16 | ED_ITS ---
HPI - Neuro Symptoms/Deficit 2 General: Chief Complaint: Neuro Symptoms/Deficit Stated Complaint: STROKE LIKE Time Seen by Provider: 02/27/24 08:01 History of Present Illness: Patient's last known well was approximately 640 5 to 7 AM this morning. Patient was walking to the bathroom when he fell and he could not get back up. EMS states that he had some mild slurring in his speech and like his voice was thick and his tongue was thick and dry. Patient was able to walk to the EMS cot but was weak, no focal localizing neurologic deficits noted. Patient does have a history of a prior stroke and is on Eliquis currently. Patient is a diabetic he was recently taken off of one of his medicines and is having a hard time controlling his blood sugar. EMS stated his blood sugar was about 330 when they checked. Review of Systems 2 General: Reports: 10 or more systems reviewed and unremarkable except in HPI and below PFSH ED 2 PFSH: Medical History Major depressive disorder, recurrent episode, mild degree Major depressive disorder in partial remission Allergic rhinitis Bipolar II disorder Diabetes Non-ST elevation AK (NSTEMI) Uses bilevel positive airway pressure (BPAP) ventilation at home 12/8cm Dysarthria Unstable angina Nonischemic congestive cardiomyopathy Chronic low back pain Elevated blood uric acid level History of sleep study 2017 at [facility]: Optimal pressure settings with BiPAP found to be 12/8 cm COPD (chronic obstructive pulmonary disease) COVID-19 Wound infection following procedure infection with defibrillator lead revision, removed , scarring left subclavian area from this Cardiac resynchronization therapy defibrillator (EXTERIOR DESIGNER-D) in place [place], 07/11/2020 GERD (gastroesophageal reflux disease) ALBERTO (obstructive sleep apnea) C. difficile diarrhea Cataracts, bilateral CHF (congestive heart failure) Urolithiasis Multi stone former, calcium oxalate mono and dihydrate. Also calcium phosphate. Multiple interventions including endoscopy with laser lithotripsy and ESWL. Metabolic treatment with potassium citrate Hemorrhoids Psychiatric care Right ureteral calculus Osteoarthritis of hands, bilateral Cardiomyopathy Mixed hyperlipidemia Pacemaker Hypertension Surgical History S/P epidural steroid injection Status post hemorrhoidectomy Hx of umbilical hernia repair Hx of lithotripsy History of urethral stent H/O esophagogastroduodenoscopy (02/27/21) gastritis, duodenitis History of colonoscopy (02/27/21) descending colon polyp, hemorrhoids History of carpal tunnel release of both wrists History of permanent cardiac pacemaker placement Hx of cataract surgery Hx of shoulder surgery Family History Grandfather CAD (coronary artery disease) Brother Cancer colon cancer Diabetes Mother Diabetes Father No problems noted. Other Hypertension Rheumatoid arthritis Social History Smoking and tobacco/nicotine status: current every day tobacco/nicotine user cigarettes [ Other cigarette details: quit smoking cigarettes ] and smokeless tobacco Smokeless tobacco user: chewing tobacco Smokeless tobacco details: 3/ can day Second hand smoke exposure: No Alcohol intake: former Year of sobriety/quit date alcohol: 1997 Substance/Drug Use: former Date of last use: 1997 Caregiver/support person: Yes Lives independently: Yes Household members: spouse Marital status: service: No Current occupational status: disabled Current gender identity: Male Special fernando needs: No Agree to transfusion: Yes NIH stroke score 2 NIHSS: Level Of Consciousness - 1a: 0 Level Of Consciousness Questions - 1b: Both Correct Level Of Consciousness Commands - 1c: Both Correct Best Gaze - 2: Normal Visual Barros - 3: No Visual Loss Facial Palsy - 4: N ormal Motor Arm Right - 5: No Drift Motor Arm Left - 5: No Drift Motor Leg Right - 6: No Drift Motor Leg Left - 6: No Drift Limb Ataxia - 7: A bsent Sensory - 8: Normal Best Language - 9: No Aphasia Dysarthia - 10: Normal Extinction And Inattention - 11: 0 Score: Total Score: 0 Physical Exam 2 Const: COMMON NORMALS: no acute distress, average body habitus, patient oriented x3, no limitations, healthy appearing, alert and well nourished O RIENTATION/CONSCIOUSNESS: Yes oriented to person and Yes oriented to time HENMT: COMMON NORMALS: normocephalic, atraumatic, hearing grossly normal bilaterally, external ears normal, Normal external nose present, moist oral mucous membranes and oropharynx normal HEAD & SCALP: normocephalic and atraumatic NOSE: Normal external nose present EXTERNAL EAR: Yes external ears normal Eye: COMMON NORMALS: Equal, round and reactive pupils present, EOMs intact bilaterally, conjunctivae normal, no scleral icterus and normal visual barros by confrontation CONJUNCTIVA: Yes conjunctivae normal PUPIL: Yes Equal, round and reactive pupils present Neck/C-Spine: COMMON NORMALS: full ROM, no lymphadenopathy, supple, no meningeal signs, no JVD and Thyroid normal THYROID: Thyroid normal Lymph: LYMPHATIC: no lymphadenopathy noted Chest: COMMONS NORMALS: normal inspection of the chest and normal palpation of entire chest wall Resp: COMMON NORMALS: normal respiratory effort, No retractions, No use of accessory muscles and clear to auscultation bilaterally AUSCULTATION: clear to auscultation bilaterally Cardio: COMMON NORMALS: no JVD, regular rate, regular rhythm, S1 normal heart sound present, S2 normal heart sound present, No gallops present (Cardio), No clicks present (Cardio), No murmurs present (Cardio) and No rub (Cardio) R ATE: regular rate RHYTHM: regular rhythm HEART SOUNDS: S1 normal heart sound present and S2 normal heart sound present GI: COMMON NORMALS: Normal to inspection, nondistended, normoactive bowel sounds present, Soft to palpation, non-tender and No hepatosplenomegaly present PALPATION: Yes Soft to palpation and Yes No hepatosplenomegaly present Neuro: COMMON NORMALS: patient oriented x3, CN's II-XII intact bilaterally, moves all extremities, no focal motor deficits and no sensory deficits noted SENSORIUM/ORIENTATION: Yes alert, Yes oriented to person and Yes oriented to time MENINGEAL SIGNS: Yes no meningeal signs CRANIAL NERVES: Yes CN normal except as noted SPEECH: speech normal MOTOR EXAM: 5/5 motor strength present throughout PUPIL EXAM: Normal pupillary reactivity/response: right, left and bilateral Course 2 Vital Signs: Vital signs: Vital Signs Temperature 97.0 F L 02/27/24 07:53 Pulse Rate 72 02/27/24 11:30 Respiratory Rate 27 H 02/27/24 08:16 Blood Pressure 138/92 02/27/24 11:30 Pulse Oximetry 95 02/27/24 11:30 Oxygen Delivery Me thod Room Air 02/27/24 11:30 MDM - Neuro Symptoms/Deficit Medical Decision Making Upon arrival to second EKG which showed acute AK, however patient has a paced rhythm and is not experiencing any chest pain EKGs were still sent to Dr. Nayak who agreed cannot call in AK due to a paced rhythm and the patient is not experiencing chest pain highly unlikely an AK. Patient physical exam done per head CT, chest x-ray, serial EKGs and lab work. All which was benign except, patient had initial elevated troponin of 241 has been 200 in the past. Patient had a 2-hour troponin at 206 for delta of 34.9 negative. Patient was not having chest pain this morning or any time while he was here. These results was discussed with the patient patient is all back to normal. Patient says he does not want to stay any longer and is ready to go home. Patient is already on Plavix, patient understands the risks of going home and symptoms worsening and he happened to return here. Patient understands these and is ready to go home. Differential Diagnosis Unlikely carpal tunnel syndrome, convulsions, delirium, subarachnoid hemorrhage, peripheral neuropathy, cerebrovascular accident, multiple sclerosis or transient cerebral ischemia Lab Data 02/27/24 08:02 02/27/24 08:[address] 02/27/24 07:52 IMPRESSION: No acute intracranial pathology detected. ASSESSMENT: ASPECTS ([place] Stroke Program Early CT Score) is 10. Laboratory Results WBC 12.54 10^3/uL (3.29-11.43) H 02/27/24 08:02 RBC 4.97 10^6/uL (3.85-5.65) 02/27/24 08:02 Hgb 15.20 g/dL (11.27-16.99) 02/27/24 08:02 Hct 44.3 % (37-53) 02/27/24 08:02 MCV 89.1 fl (82-101) 02/27/24 08:02 MCH 30.6 pg (27-33) 02/27/24 08:02 MCHC 34.3 g/dL (30-55) 02/27/24 08:02 RDW 13.6 % (12.1-15.1) 02/27/24 08:02 Plt Count 281 10^3/cmm (157-399) 02/27/24 08:02 MPV 10.8 fL (7.4-10.4) H 02/27/24 08:02 Neut % (Auto) 72.9 % 02/27/24 08:02 Lymph % (Auto) 15.6 % 02/27/24 08:02 [place] % (Auto) 8.0 % 02/27/24 08:02 Eos % (Auto) 0.6 % 02/27/24 08:02 Baso % (Auto) 0.3 % 02/27/24 08:02 Neut # (Auto) 9.15 10^3/uL (1.8-7.7) H 02/27/24 08:02 Lymph # (Auto) 2.0 10^3/uL (0.8-4.8) 02/27/24 08:02 [place] # (Auto) 1.0 10^3/uL (0.2-0.9) H 02/27/24 08:02 Eos # (Auto) 0.1 10^3/uL (0.0-0.8) 02/27/24 08:02 Baso # (Auto) 0.0 10^3/uL (0.0-0.1) 02/27/24 08:02 Nucleated RBC % (auto) 0 % 02/27/24 08:02 Nucleated RBCs # 0.0 /100WBC 02/27/24 08:02 PT 13.50 SECONDS (12.1-14.9) 02/27/24 08:02 INR 1.00 (0.8-1.2) 02/27/24 08:02 Sodium 136 mmol/L (136-145) 02/27/24 08:02 Potassium 4.3 mmol/L (3.5-5.1) 02/27/24 08:02 Chloride 102 mmol/L (98-107) 02/27/24 08:02 Carbon Dioxide 24 mmol/L (22-29) 02/27/24 08:02 Anion Gap 14.3 (5-19) 02/27/24 08:02 BUN 18 mg/dL (8-23) 02/27/24 08:02 Creatinine 0.7 mg/dL (0.7-1.2) 02/27/24 08:02 GFR Calculation 113.9 mL/min (90-130) 02/27/24 08:02 Glucose 289 mg/dL (65-115) H 02/27/24 08:02 Calculated Osmolality 294 mOsm/kg (285-295) 02/27/24 08:02 Uric Acid 3.3 mg/dL (3.4-7.0) L 02/27/24 08:02 Calcium 8.7 mg/dL (8.5-10.5) 02/27/24 08:02 Magnesium 1.7 mg/dL (1.7-2.3) 02/27/24 08:02 Total Bilirubin 0.3 mg/dL (0.15-1.2) 02/27/24 08:02 AST 20 U/L (0-40) 02/27/24 08:02 ALT 24 U/L (0-41) 02/27/24 08:02 Alkaline Phosphatase 127 U/L (40-130) 02/27/24 08:02 Troponin T Baseline 241 ng/L (0-15) H* 02/27/24 08:02 Troponin T 120 Minute 206.1 ng/L (0-15) H 02/27/24 10:22 Delta Troponin T -34.9 ABS# (0-10) L 02/27/24 10:22 C-Reactive Protein 20.5 mg/L (0.0-4.9) H 02/27/24 08:02 NT-Pro-B Natriuret Pep 2032 pg/mL (0-125) H 02/27/24 08:02 Total Protein 5.4 g/dL (6.6-8.7) L 02/27/24 08:02 Albumin 3.3 g/dL (3.5-5.2) L 02/27/24 08:02 Globulin 2.1 g/dL (1.3-4.6) 02/27/24 08:02 TSH 1.94 uIU/mL (0.27-4.20) 02/27/24 08:02 Urine Color Yellow (Yellow) 02/27/24 11:37 Urine Appearance Clear (CLEAR) 02/27/24 11:37 Urine pH 6.5 (5-7) 02/27/24 11:37 Ur Specific [place] 1.015 (1.005-1.030) 02/27/24 11:37 Urine Protein Neg (Negative) 02/27/24 11:37 Urine Glucose (UA) 4+ (Normal) H 02/27/24 11:37 Urine Ketones Negative (Negative) 02/27/24 11:37 Urine Blood Neg (Negative) 02/27/24 11:37 Urine Nitrate Negative (Negative) 02/27/24 11:37 Urine Bilirubin Neg (Negative) 02/27/24 11:37 Urine Urobilinogen Norm mg/dL (Negative) 02/27/24 11:37 Ur Leukocyte Esterase Negative (Negative) 02/27/24 11:37 Urine Opiates Screen Negative ng/mL (Negative) 02/27/24 11:37 Ur Barbiturates Screen Negative ng/mL (Negative) 02/27/24 11:37 Ur Phencyclidine Scrn Negative ng/mL (Negative) 02/27/24 11:37 Ur Amphetamines Screen Negative ng/mL (Negative) 02/27/24 11:37 U Benzodiazepines Scrn Negative ng/mL (Negative) 02/27/24 11:37 Urine Cocaine Screen Negative ng/mL (Negative) 02/27/24 11:37 U Marijuana (THC) Screen Negative ng/mL (Negative) 02/27/24 11:37 All radiology interpretation(s) finalized by discharge EKG Data EKG 1: I personally reviewed and interpreted this EKG as follows: EKG interpretation date: 02/27/24 EKG interpretation time: 08:04 Interpretation: Ventricular rate 70 bpm, VT interval 169, QRS duration 198, QTc of 492, Medtronic atrial and ventricular pacemaker Discharge Plan Discharge Patient Disposition: Home Clinical Impression: Weakness Type 2 diabetes mellitus Qualifiers: Diabetes mellitus adjunct faculty for medical terminology insulin use: without adjunct faculty for medical terminology use Diabetes mellitus complication status: with other specified complication Qualified Code(s): E11.69 - Type 2 diabetes mellitus with other specified complication Condition: Stable Prescriptions: No Action (DME) Blood Glucose Test Strip See Rx Instructions .ROUTE .MEDSUPPLY Qty: 100 11RF Rx Instructions: Check blood sugar 2 x daily and prn (DME) lancets [BD Ultra Fine Lancets] 33 gauge misc See Rx Instructions .ROUTE .MEDSUPPLY Qty: 100 11RF Rx Instructions: check blood sugar twice daily and as needed sertraline 100 mg tablet 150 mg PO QAM Qty: 45 2RF albuterol sulfate [ProAir HFA] 90 mcg/actuation HFA aerosol inhaler 2 puff INHALATION Q6H PRN (Reason: shortness of breath or wheezing) Qty: 18 2RF (DME) nebulizer machine with tubing and mask See Rx Instructions .Route .MEDSUPPLY Qty: 1 0RF Rx Instructions: As directed levocetirizine [Xyzal] 5 mg tablet 5 mg PO DAILY Qty: 90 1RF Entresto 97-103 mg tablet 1 tab PO BID allopurinol 300 mg tablet 300 mg PO QAM Qty: 90 1RF carvedilol 25 mg tablet 25 mg PO BID 90 Days Qty: 180 1RF pantoprazole [Protonix] 40 mg tablet,delayed release (DR/EC) 40 mg PO BID 56 Days Qty: 112 0RF (DME) blood-glucose meter [Blood Glucose Monitoring] Kit See Rx Instructions .ROUTE .MEDSUPPLY Qty: 1 0RF Rx Instructions: As directed; to test 2 x day and prn albuterol sulfate 2.5 mg /3 mL (0.083 %) solution for nebulization 2.5 mg inhalation QID PRN (Reason: shortness of breath or wheezing) Qty: 180 5RF omega 8-vhl-ceg-fish oil [Fish Oil] 300-1,000 mg capsule 1 cap PO DAILY Qty: 90 1RF promethazine 25 mg tablet 25 mg PO Q6H PRN (Reason: nausea and vomiting) Qty: 20 0RF Men's 50 Plus Multivitamin 400-20-370 mcg Tablet 1 tab PO DAILY fluticasone propionate [Flonase Allergy Relief] 50 mcg/actuation spray,suspension 2 spray intranasal DAILY PRN (Reason: Allergy Symptoms) Rx Instructions: administer into each nostril aspirin 325 mg Tablet 325 mg PO DAILY clopidogrel 75 mg Tablet 75 mg PO DAILY Qty: 30 2RF furosemide [Lasix] 20 mg tablet 20 mg PO DAILY PRN (Reason: weight gain) Qty: 30 3RF ondansetron HCl 8 mg tablet 8 mg PO TID PRN (Reason: Nausea And Vomiting) dapagliflozin propanediol [Farxiga] 10 mg tablet 10 mg PO DAILY ibuprofen 800 mg tablet 800 mg PO Q8H PRN (Reason: Pain) potassium citrate 10 mEq (1,080 mg) tablet extended release 20 meq PO BID rosuvastatin 40 mg tablet 40 mg PO BEDTIME Lantus Solostar U-100 Insulin 100 unit/mL (3 mL) insulin pen 25 unit SUBCUT BEDTIME Discharge Orders: Discharge ED (Routine); Ordered 02/27/24 Ordered By: Ozzie Laguna Referrals: Lucrecia Blandon FNP [Primary Care Provider] - 1 week Patient Instructions: Diabetic Hyperglycemia (ED), Weakness (Generalized) Activity Restrictions/Additional Instructions: Your evaluation in ER did not show any acute cause for your weakness and hyperglycemia this morning. You are already on anticoagulation with Plavix. Please continue to control and monitor your blood sugars as needed. Your troponin was elevated however it has been elevated in the past. You are given the option to stay in the hospital for observation and you chose to go home. This puts you at a higher risk if something is starting to occur or changes. If you develop any chest pain or shortness of breath or worsening weakness please feel free to return to the ER immediately for further evaluation and treatment. Coding Level of Care Code ED Photograph Inspector for Ck Crooks
--- NOTE | 2024-02-27 08:25 | PC.PHAR ---
pt states he takes care of his own medications-pt states he still takes plavix 75mg po daily ext shows last filled 01/14/24 30d/s-pt states the trulicity 1.5mg q7d filled 12/22/23 30d/s was dced-pt states his lantus solostar was just increased to 25 unit hs ext shows last filled 12/01/23 140d/s 10 units daily-pt states he finished the bactrim ds 1 tab po bid filled 02/13/24 7d/s-pt states his zoloft was just increased to 150mg qam written 02/23/24 ext shows last filled 02/13/24 100mg daily-
[2024-02-27 08:37] LABS: Alanine Aminotransferase 24 U/L (0-41); Albumin Level 3.3 g/dL (3.5-5.2); Alkaline Phosphatase 127 U/L (40-130); Anion Gap 14.3 (5-19); Aspartate Amino Transferase 20 U/L (0-40); Blood Urea Nitrogen 18 mg/dL (8-23); C Reactive Protein 20.5 mg/L (0.0-4.9); Calcium 8.7 mg/dL (8.5-10.5); Carbon Dioxide 24 mmol/L (22-29); Chloride 102 mmol/L (98-107); Creatinine Clr Calc Pharmacy 129.2268; Globulin 2.1 g/dL (1.3-4.6); Glomerular Filtration Rate 113.9 mL/min (90-130); Glucose 289 mg/dL (65-115); Magnesium 1.7 mg/dL (1.7-2.3); NT Pro B Type Natriuretic Pept 2032 pg/mL (0-125); Osmolality Calculated 294 mOsm/kg (285-295); Potassium 4.3 mmol/L (3.5-5.1); Sodium 136 mmol/L (136-145); Thyroid Stimulating Hormone 1.94 uIU/mL (0.27-4.20); Total Bilirubin 0.3 mg/dL (0.15-1.2); Total Protein 5.4 g/dL (6.6-8.7); Uric Acid 3.3 mg/dL (3.4-7.0)
[2024-02-27 08:40] LABS: Troponin(5th) Baseline 241 ng/L (0-15)
[2024-02-27 08:46] VITALS: BP 138/85; PULSE 70; O2SAT 93
[2024-02-27 09:16] VITALS: BP 136/73; PULSE 70; O2SAT 94
--- NOTE | 2024-02-27 10:04 | ECG_ITS ---
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 Measurements Intervals [place] Rate: 70 P: 12 NE: 182 QRS: 67 QRSD: 178 T: 49 QT: 452 QTc: 489 Interpretive Statements ELECTRONIC ATRIAL PACEMAKER ELECTRONIC VENTRICULAR PACEMAKER MARKED ST ELEVATION, CONSIDER LATERAL INJURY [MARKED ST ELEVATION W/O NORMALLY INFLECTED T-WAVE IN I/aVL/V5/V6] MARKED ST ELEVATION, CONSIDER INFERIOR INJURY [MARKED ST ELEVATION W/O NORMALLY INFLECTED T-WAVE IN II/aVF] ACUTE CT Compared to ECG 02/27/2024 08:04:44 ST (T wave) deviation now present Myocardial infarct finding now present Electronically Signed On 02-27-2024 17:03:26 CDT by Joe Holder M.D. [email or web address]
[2024-02-27 11:10] LABS: Troponin 5 2HR 206.1 ng/L (0-15); Troponin 5 2HR Delta -34.9 ABS# (0-10)
[2024-02-27 11:30] VITALS: BP 138/92; PULSE 72; O2SAT 95
[2024-02-27 11:41] LABS: Add Urine Microscopic? NO; Charge for UA Resulting for Rev
[2024-02-27 11:54] LABS: Bilirubin Urine Neg (Negative); Blood Urine Neg (Negative); Glucose Urine UA 4+ (Normal); Ketones Urine Negative (Negative); Leukocyte Esterase Urine Negative (Negative); Nitrate Urine Negative (Negative); Protein Urine Neg (Negative); Specific Gravity, Urine 1.015 (1.005-1.030); Urine Appearance Clear (CLEAR); Urine Color Yellow (Yellow); Urobilinogen Urine Norm (Negative); pH Urine 6.5 (5-7)
[2024-02-27 12:02] LABS: Amphetamines Screen Urine Negative (Negative); Barbiturates Screen Urine Negative (Negative); Benzodiazepines Screen Urine Negative (Negative); Cocaine Screen Urine Negative (Negative); Opiate Screen Urine Negative (Negative); PCP Screen Urine Negative (Negative); THC Screen Urine Negative (Negative)
[2024-02-27 12:55] VITALS: BP 150/102; PULSE 72; O2SAT 92
== END 2024-02-27 13:31 | disposition home or self-care (01) ==
PROVIDERS: Emergency Provider Emergency Medicine; PCP Nurse Practitioner Family
DX: R53.1 Weakness (principal); E11.69 Type 2 diabetes mellitus with other specified complication; Z79.02 Long term (current) use of antithrombotics/antiplatelets; Z79.82 Long term (current) use of aspirin; Z79.4 Long term (current) use of insulin; F17.220 Nicotine dependence, chewing tobacco, uncomplicated; I25.2 Old myocardial infarction; E11.9 Type 2 diabetes mellitus without complications; I42.8 Other cardiomyopathies; J44.9 Chronic obstructive pulmonary disease, unspecified; I11.0 Hypertensive heart disease with heart failure; I50.9 Heart failure, unspecified; E78.2 Mixed hyperlipidemia; Z95.0 Presence of cardiac pacemaker
CPT/HCPCS: 36415; 70450; 71045; 80053; 80306; 81003; 83735; 83880; 84443; 84484; 84550; 85025; 85610; 86140; 93005; 99285

== ENCOUNTER 2024-03-07 22:05 | Inpatient (IN) | payer MEDICAID, SELFPAY ==
[2024-03-03 15:38] VITALS: BP 110/60; BMI 42.3
[2024-03-07 22:06] VITALS: BP 146/97; PULSE 84; RESP 22; TEMP 37.2; O2SAT 92; BMI 37.0
--- NOTE | 2024-03-07 22:33 | CTR_ITS ---
PROCEDURE INFORMATION: Exam: CT Abdomen And Pelvis With Contrast Exam date and time: 03/07/2024 10:50 PM Age: 63 years old Clinical indication: Nausea and vomiting; Abdominal pain; Generalized; Prior surgery; Surgery date: 6+ months; Surgery type: Pacer. Umbilical hernia repair; Patient HX: C/O diffuse abd pain with n/v. ; Additional info: Ab pain, vomiting TECHNIQUE: Imaging protocol: Computed tomography of the abdomen and pelvis with contrast. Radiation optimization: All CT scans at this facility use at least one of these dose optimization techniques: automated exposure control; mA and/or kV adjustment per patient size (includes targeted exams where dose is matched to clinical indication); or iterative reconstruction. Contrast material: OMNI 350; Contrast volume: 100 ml; Contrast route: INTRAVENOUS (IV); COMPARISON: CT abdomen pelvis wo con [id number] 02/18/2024 5:18 PM RADIATION DOSE METRICS: Total DLP (mGy-cm): 1355.99 FINDINGS: Lungs: Bibasilar atelectasis versus infiltrate. Pleural spaces: Trace bilateral left greater than right pleural effusions. Heart: Cardiomegaly. Liver: Normal. No mass. Gallbladder and bile ducts: Normal. No calcified stones. No ductal dilation. Pancreas: Normal. No ductal dilation. Spleen: 8.7 cm somewhat wedge-shaped low-density area in the spleen with a smaller 12.8 mm low-density area, new compared to prior exam, finding may reflect a splenic infarct. Small amount of surrounding edema is seen in the mesentery. Please correlate clinically. The splenic vasculature appears patent. Adrenal glands: Normal. No mass. Kidneys and ureters: Left kidney nonobstructing calyceal stone. Bilateral perinephric edema bilaterally likely reflecting renal sufficiency, please correlate for pyelonephritis. Stomach and bowel: Unremarkable. No obstruction. No mucosal thickening. Appendix: No evidence of appendicitis. Intraperitoneal space: See Spleen finding. Vasculature: See Spleen finding. Lymph nodes: Unremarkable. No enlarged lymph nodes. Urinary bladder: Unremarkable as visualized. Reproductive: Unremarkable as visualized. Bones/joints: Sternotomy wires. S1 vertebral body stable sclerotic bony lesion, whole body nuclear medicine bone scan could further characterize this Soft tissues: Small amount of nonspecific fluid in the pelvis and paracolic gutters bilaterally. Other findings: Small amount of nonspecific fluid in the pelvis. CT/CT abdomen pelvis w con* [id number] IMPRESSION: 1. 8.7 cm somewhat wedge-shaped low-density area in the spleen with a smaller 12.8 mm low-density area, new compared to prior exam, finding may reflect a splenic infarct. Small amount of surrounding edema is seen in the mesentery. Please correlate clinically. The splenic vasculature appears patent. 2. Left kidney nonobstructing calyceal stone. 3. Bilateral perinephric edema bilaterally likely reflecting renal sufficiency, please correlate for pyelonephritis. 4. Small amount of nonspecific fluid in the pelvis and paracolic gutters bilaterally. 5. Trace bilateral left greater than right pleural effusions. 6. Cardiomegaly. 7. Sternotomy wires. 8. Bibasilar atelectasis versus infiltrate. 9. Small bilateral left greater than right fat containing inguinal hernias. 10. S1 vertebral body stable sclerotic bony lesion, whole body nuclear medicine bone scan could further characterize this
[2024-03-07] MEDS: sodium chloride 0.9% 1,000 ML 999 ML IV (22:42)
[2024-03-07] MEDS: morphine 4 mg/mL SDV 1 mL IVP (22:42)
[2024-03-07] MEDS: ondansetron 2 mg/ML SDV 2 mL 4 MG IVP (22:42)
[2024-03-07] MEDS: iohexol 350 mg/mL 500 mL Btl (per mL) IV (22:51)
--- NOTE | 2024-03-07 23:07 | ED_ITS ---
HPI - Abdominal Pain 2 General: Chief Complaint: Abdominal Pain Stated Complaint: abd pain Time Seen by Provider: 03/07/24 22:09 History of Present Illness: 63-year-old male patient with multiple m edical problems. He presents with generalized abdominal pain and tenderness that started earlier in the day. He has not vomited. He has been increasingly weak according to his family member. He was seen in the emergency room for abdominal pain a couple weeks ago and had a negative CT at that point. He was released 5 days ago from an outside facility, for evaluation and treatment of a stroke. He has been ambulating with a cane or walker at home since that time. Associated Symptoms: Reports nausea; Denies vomiting Review of Systems 2 ENMT: Denies: throat pain Card: Denies: chest pain Resp: Reports: dyspnea GI: Reports: abdominal pain and nausea; Denies: vomiting PFSH ED 2 PFSH: Medical History Major depressive disorder, recurrent episode, mild degree Major depressive disorder in partial remission Allergic rhinitis Bipolar II disorder Diabetes Non-ST elevation NV (NSTEMI) Uses bilevel positive airway pressure (BPAP) ventilation at home 12/8cm Dysarthria Unstable angina Nonischemic congestive cardiomyopathy Chronic low back pain Elevated blood uric acid level History of sleep study 2017 at [facility]: Optimal pressure settings with BiPAP found to be 12/8 cm COPD (chronic obstructive pulmonary disease) COVID-19 Wound infection following procedure infection with defibrillator lead revision, removed , scarring left subclavian area from this Cardiac resynchronization therapy 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 difficile diarrhea Cataracts, bilateral CHF (congestive heart failure) Urolithiasis Multi stone former, calcium oxalate mono and dihydrate. Also calcium phosphate. Multiple interventions including endoscopy with laser lithotripsy and ESWL. Metabolic treatment with potassium citrate Hemorrhoids Psychiatric care Right ureteral calculus Osteoarthritis of hands, bilateral Cardiomyopathy Mixed hyperlipidemia Pacemaker Hypertension Surgical History S/P epidural steroid injection Status post hemorrhoidectomy Hx of umbilical hernia repair Hx of lithotripsy History of urethral stent H/O esophagogastroduodenoscopy (02/27/21) gastritis, duodenitis History of colonoscopy (02/27/21) descending colon polyp, hemorrhoids History of carpal tunnel release of both wrists History of permanent cardiac pacemaker placement Hx of cataract surgery Hx of shoulder surgery Family History Grandfather CAD (coronary artery disease) Brother Cancer colon cancer Diabetes Mother Diabetes Father No problems noted. Other Hypertension Rheumatoid arthritis Social History Smoking and tobacco/nicotine status: current every day tobacco/nicotine user cigarettes [ Other cigarette details: quit smoking cigarettes ] and smokeless tobacco Smokeless tobacco user: chewing tobacco Smokeless tobacco details: 3/ can day Second hand smoke exposure: No Alcohol intake: former Year of sobriety/quit date alcohol: 1997 Substance/Drug Use: former Date of last use: 1997 Caregiver/support person: Yes Lives independently: Yes Household members: spouse Marital status: service: No Current occupational status: disabled Current gender identity: Male Special fernando needs: No Agree to transfusion: Yes Physical Exam 2 Const: GENERAL APPEARANCE: cooperative, ill appearing and frail appearing HENMT: COMMON NORMALS: normocephalic and Normal external nose present HEAD & SCALP: normocephalic FACE & SINUS: face not symmetric NOSE: Normal external nose present Eye: COMMON NORMALS: Equal, round and reactive pupils present and EOMs intact bilaterally PUPIL: Yes Equal, round and reactive pupils present Neck/C-Spine: GENERAL: Yes trachea midline Chest: CHEST: Yes Symmetrical chest wall rise Resp: EFFORT & INSPECTION: Yes symmetric chest movement and Yes tachypneic AUSCULTATION: diminished lung sounds Cardio: COMMON NORMALS: regular rate and regular rhythm RATE: regular rate RHYTHM: regular rhythm GI: INSPECTION: Yes abdominal distension PALPATION: Yes Tenderness to palpation present (GI) (Generalized) and Yes Guarding due to palpation present (GI) Neuro: BRYANT COMA SCALE: document GCS findings Bryant coma scale eye opening: Spontaneous Bryant coma scale verbal response: Orientated Kershaw coma scale motor response: Obey commands Kershaw coma scale total score: 15 Course 2 Vital Signs: Vital signs: Vital Signs Temperature 97.6 F 03/08/24 02:30 Pulse Rate 112 H 03/08/24 02:30 Respiratory Rate 22 H 03/08/24 02:30 Blood Pressure 112/75 03/08/24 02:30 Pulse Oximetry 94 03/08/24 02:30 Oxygen Delivery Me thod Nasal Cannula 03/08/24 02:30 Oxygen Flow Rate 2 03/08/24 02:30 MDM - Abdominal Pain Medical Decision Making Significant abdominal tenderness and distention in a patient with recent history of stroke. Vital signs been stable here except he is needing oxygen which is not normal for him. CBC is normal. BMP is not terribly remarkable. CT shows wedge-shaped low-density area in the spleen compared to prior CT is new. 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 The patient is on Plavix, but on anticoagulants. We discussed treatment for splenic infarction which is anticoagulants and pain control. The problem is that the patient is having trouble at baseline getting around at home, and with this increased pain and weakness from the acute illness, is doing even worse. He was not able to sit up in bed much less ambulate in the ER. He will be admitted to the hospitalist service. Hospitalist agrees. Lab Data 03/07/24 23:03 03/07/24 23:03 Labs/Radiology: Radiology Impressions Abdomen/Pelvis CT 03/07/24 22:33 IMPRESSION: 1. 8.7 cm somewhat wedge-shaped low-density area in the spleen with a smaller 12.8 mm low-density area, new compared to prior exam, finding may reflect a splenic infarct. Small amount of surrounding edema is seen in the mesentery. Please correlate clinically. The splenic vasculature appears patent. 2. Left kidney nonobstructing calyceal stone. 3. Bilateral perinephric edema bilaterally likely reflecting renal sufficiency, please correlate for pyelonephritis. 4. Small amount of nonspecific fluid in the pelvis and paracolic gutters bilaterally. 5. Trace bilateral left greater than right pleural effusions. 6. Cardiomegaly. 7. Sternotomy wires. 8. Bibasilar atelectasis versus infiltrate. 9. Small bilateral left greater than right fat containing inguinal hernias. 10. S1 vertebral body stable sclerotic bony lesion, whole body nuclear medicine bone scan could further characterize this Laboratory Results WBC 10.07 10^3/uL (3.29-11.43) 03/07/24 23:03 RBC 5.38 10^6/uL (3.85-5.65) 03/07/24 23:03 Hgb 16.30 g/dL (11.27-16.99) 03/07/24 23:03 Hct 49.5 % (37-53) 03/07/24 23:03 MCV 92.0 fl (82-101) 03/07/24 23:03 MCH 30.3 pg (27-33) 03/07/24 23:03 MCHC 32.9 g/dL (30-55) 03/07/24 23:03 RDW 13.6 % (12.1-15.1) 03/07/24 23:03 Plt Count 303 10^3/cmm (157-399) 03/07/24 23:03 MPV 11.1 fL (7.4-10.4) H 03/07/24 23:03 Neut % (Auto) 88.4 % 03/07/24 23:03 Lymph % (Auto) 6.4 % 03/07/24 23:03 Mckenzie % (Auto) 4.3 % 03/07/24 23:03 Eos % (Auto) 0.3 % 03/07/24 23:03 Baso % (Auto) 0.2 % 03/07/24 23:03 Neut # (Auto) 8.91 10^3/uL (1.8-7.7) H 03/07/24 23:03 Lymph # (Auto) 0.6 10^3/uL (0.8-4.8) L 03/07/24 23:03 Mckenzie # (Auto) 0.4 10^3/uL (0.2-0.9) 03/07/24 23:03 Eos # (Auto) 0.0 10^3/uL (0.0-0.8) 03/07/24 23:03 Baso # (Auto) 0.0 10^3/uL (0.0-0.1) 03/07/24 23:03 Nucleated RBC % (auto) 0 % 03/07/24 23:03 Nucleated RBCs # 0.0 /100WBC 03/07/24 23:03 Sodium 133 mmol/L (136-145) L 03/07/24 23:03 Potassium 5.0 mmol/L (3.5-5.1) 03/07/24 23:03 Chloride 98 mmol/L (98-107) 03/07/24 23:03 Carbon Dioxide 27 mmol/L (22-29) 03/07/24 23:03 Anion Gap 13.0 (5-19) 03/07/24 23:03 BUN 16 mg/dL (8-23) 03/07/24 23:03 Creatinine 0.9 mg/dL (0.7-1.2) 03/07/24 23:03 GFR Calculation 85.2 mL/min (90-130) L 03/07/24 23:03 Glucose 295 mg/dL (65-115) H 03/07/24 23:03 Calculated Osmolality 288 mOsm/kg (285-295) 03/07/24 23:03 Lactic Acid 1.8 mmol/L (0.5-2.2) 03/07/24 23:03 Calcium 9.1 mg/dL (8.5-10.5) 03/07/24 23:03 Magnesium 1.5 mg/dL (1.7-2.3) L 03/07/24 23:03 Total Bilirubin 0.5 mg/dL (0.15-1.2) 03/07/24 23:03 AST 34 U/L (0-40) 03/07/24 23:03 ALT 42 U/L (0-41) H 03/07/24 23:03 Alkaline Phosphatase 182 U/L (40-130) H 03/07/24 23:03 Total Protein 6.3 g/dL (6.6-8.7) L 03/07/24 23:03 Albumin 3.2 g/dL (3.5-5.2) L 03/07/24 23:03 Globulin 3.1 g/dL (1.3-4.6) 03/07/24 23:03 Lipase 49 U/L (13-60) 03/07/24 23:03 Urine Color Yellow (Yellow) 03/07/24 23:54 Urine Appearance Clear (CLEAR) 03/07/24 23:54 Urine pH 7 (5-7) 03/07/24 23:54 Ur Specific [place] 1.005 (1.005-1.030) 03/07/24 23:54 Urine Protein Neg (Negative) 03/07/24 23:54 Urine Glucose (UA) 4+ (Normal) H 03/07/24 23:54 Urine Ketones Negative (Negative) 03/07/24 23:54 Urine Blood Neg (Negative) 03/07/24 23:54 Urine Nitrate Negative (Negative) 03/07/24 23:54 Urine Bilirubin Neg (Negative) 03/07/24 23:54 Urine Urobilinogen Neg mg/dL (Negative) 03/07/24 23:54 Ur Leukocyte Esterase Negative (Negative) 03/07/24 23:54 All radiology interpretation(s) finalized by discharge Discharge Plan Discharge Patient Disposition: Admitted As Inpatient Admit Provider: Khalida Gomez Clinical Impression: Infarction of spleen Condition: Stable Coding Level of Care Code ED Lute Packer Or Applier for Ck Crooks
[2024-03-07 23:09] LABS: Basophils % 0.2 %; Eosinophils % 0.3 %; Hematocrit 49.5 % (37-53); Lymphocytes # 0.6 10^3/uL (0.8-4.8); Lymphocytes % 6.4 %; Mean Corpuscular HGB Conc 32.9 g/dL (30-55); Mean Corpuscular Hemoglobin 30.3 pg (27-33); Mean Platelet Volume 11.1 fL (7.4-10.4); Monocytes # 0.4 10^3/uL (0.2-0.9); Monocytes % 4.3 %; Neutrophils # 8.91 10^3/uL (1.8-7.7); Neutrophils % 88.4 %; Nucleated Red Blood Cells % 0 %; Platelet Count 303 10^3/cmm (157-399); Red Blood Count 5.38 10^6/uL (3.85-5.65); Red Cell Distribution Width 13.6 % (12.1-15.1); White Blood Count 10.07 10^3/uL (3.29-11.43)
[2024-03-07 23:27] LABS: Alanine Aminotransferase 42 U/L (0-41); Albumin Level 3.2 g/dL (3.5-5.2); Alkaline Phosphatase 182 U/L (40-130); Aspartate Amino Transferase 34 U/L (0-40); Blood Urea Nitrogen 16 mg/dL (8-23); Calcium 9.1 mg/dL (8.5-10.5); Carbon Dioxide 27 mmol/L (22-29); Chloride 98 mmol/L (98-107); Creatinine Clr Calc Pharmacy 101.3724; Globulin 3.1 g/dL (1.3-4.6); Glomerular Filtration Rate 85.2 mL/min (90-130); Glucose 295 mg/dL (65-115); Lactic Sepsis W/Reflex 1.8 mmol/L (0.5-2.2); Lipase 49 U/L (13-60); Magnesium 1.5 mg/dL (1.7-2.3); Osmolality Calculated 288 mOsm/kg (285-295); Sodium 133 mmol/L (136-145); Total Bilirubin 0.5 mg/dL (0.15-1.2); Total Protein 6.3 g/dL (6.6-8.7)
[2024-03-07 23:58] LABS: Add Urine Microscopic? NO; Charge for UA Resulting for Rev
[2024-03-08] VITALS (16 sets, daily range): BP systolic 112–132; BP diastolic 66–92; PULSE 54–115; RESP 16–22; TEMP 36.2–37.2; O2SAT 90–99; BMI 36.3; BMI 39.5
[2024-03-08 00:03] LABS: Bilirubin Urine Neg (Negative); Blood Urine Neg (Negative); Glucose Urine UA 4+ (Normal); Ketones Urine Negative (Negative); Leukocyte Esterase Urine Negative (Negative); Nitrate Urine Negative (Negative); Protein Urine Neg (Negative); Specific Gravity, Urine 1.005 (1.005-1.030); Urine Appearance Clear (CLEAR); Urine Color Yellow (Yellow); Urobilinogen Urine Neg (Negative); pH Urine 7 (5-7)
--- NOTE | 2024-03-08 06:31 | P.HP_ITS ---
Providers/Chief Complaint 2 Admitting Physician: Khalida Gomez MD Primary Care Provider: ANDRES Pettit Chief Complaint: abd pain History of Present Illness Amrik Alexander is a 63 year old male presented to hospital with chief complaint of abdominal pain and tenderness. Patient started experiencing abdominal cramping associate with nausea and vomiting. Symptoms started getting worse few hours before his arrival in the ER. He has been extremely weak and lethargic, his functional capacity has decreased significantly in the last 2 weeks he is not able to care for himself. A week ago he suffered from a rt sided stroke currently using a walker. Patient was seen at [facility], as per the they did coronary angiogram, stent was not placed, she is actually not sure why angiogram was done, I have requested records from [facility], I have started patient on anticoagulating agent along IV fluids, Review of Systems 2 Const: Denies: fever(s) Eyes: Denies: change in vision ENMT: Denies: throat pain Card: Denies: chest pain Resp: Denies: dyspnea GI: Reports: abdominal pain, nausea and vomiting : Denies: flank pain Musc: Denies: neck pain Skin/Breast: Denies: rash Neuro: Denies: headache(s) Psych: Reports: anxiety Medications/Allergies Home Medications Medication Instructions Recorded Confirmed Last Taken Type blood-glucose meter (Blood Glucose #1 ea 07/06/20 03/08/24 Unknown Rx Monitoring kit) albuterol sulfate 90 mcg/actuation 2 puff inhalation Q6H PRN 05/20/22 03/08/24 04/06/23 Rx aerosol inhaler (ProAir HFA) shortness of breath or wheezing #18 grams nebulizer machine with tubing and #1 ea 09/09/22 03/08/24 Unknown Rx mask blood sugar diagnostic (Blood #100 ea 12/05/22 03/08/24 Unknown Rx Glucose Test strips) lancets 33 gauge (BD Ultra Fine #100 ea 12/05/22 03/08/24 Unknown Rx Lancets) nvwgeyythynx-bqm-pvixk acid-vit 1 tab PO DAILY 04/07/23 03/08/24 11/17/23 History K-lycop 400 mcg-20 mcg-370 mcg tablet (Men's 50 Plus Multivitamin) albuterol sulfate 2.5 mg/3 mL 2.5 mg (3 mL) inhalation QID PRN 06/10/23 03/08/24 Unknown Rx (0.083 %) solution for nebulization shortness of breath or wheezing #180 mL fluticasone propionate 50 2 spray intranasal DAILY PRN 08/17/23 03/08/24 Unknown History mcg/actuation nasal Allergy Symptoms spray,suspension (Flonase Allergy Relief) clopidogrel 75 mg tablet 75 mg PO DAILY #30 tabs 11/20/23 03/08/24 Unknown Rx sacubitril 97 mg-valsartan 103 mg 1 tab PO BID 11/21/23 03/08/24 Unknown History tablet (Entresto) omega 5-dlj-gqs-fish oil 300 1 cap PO DAILY #90 caps 12/08/23 03/08/24 Unknown Rx mg-1,000 mg capsule (Fish Oil) allopurinol 300 mg tablet 300 mg PO QAM #90 tabs 01/19/24 03/08/24 Unknown Rx carvedilol 25 mg tablet 25 mg PO BID 90 days #180 tabs 01/19/24 03/08/24 Unknown Rx promethazine 25 mg tablet 25 mg PO Q6H PRN nausea and 02/18/24 03/08/24 Unknown Rx vomiting #20 tabs dapagliflozin propanediol 10 mg 10 mg PO DAILY 02/27/24 03/08/24 Unknown History tablet (Farxiga) ibuprofen 800 mg tablet 800 mg PO Q8H PRN Pain or Fever 02/27/24 03/08/24 Unknown History insulin glargine 100 unit/mL (3 25 unit SUBCUT BEDTIME 02/27/24 03/08/24 Unknown History mL) subcutaneous pen (Lantus Solostar U-100 Insulin) ondansetron HCl 8 mg tablet 8 mg PO TID PRN Nausea And Vomiting 02/27/24 03/08/24 Unknown History rosuvastatin 40 mg tablet 40 mg PO BEDTIME 02/27/24 03/08/24 Unknown History aspirin 81 mg tablet,delayed 81 mg PO DAILY 03/08/24 03/08/24 Unknown History release furosemide 20 mg tablet (Lasix) 20 mg PO DAILY 03/08/24 03/08/24 Unknown History levocetirizine 5 mg tablet (Xyzal) 5 mg PO DAILY PRN allergies 03/08/24 03/08/24 Unknown History magnesium L-lactate 84 mg 84 mg PO DAILY 03/08/24 03/08/24 Unknown History tablet,extended release pantoprazole 40 mg tablet,delayed 40 mg PO BID 03/08/24 03/08/24 Unknown History release (Protonix) potassium citrate 10 mEq (1,080 20 meq PO BID 03/08/24 03/08/24 Unknown History mg) tablet,extended release sertraline 100 mg tablet 100 mg PO QAM 03/08/24 03/08/24 Unknown History Allergies Allergy/AdvReac Type Severity Reaction Status Date / Time isosorbide Allergy unknown Verified 03/08/24 08:05 Penicillins AdvReac rash Verified 03/08/24 08:05 PFSH Acute 2 PFSH: Medical History Major depressive disorder, recurrent episode, mild degree Major depressive disorder in partial remission Allergic rhinitis Bipolar II disorder Diabetes Non-ST elevation NC (NSTEMI) Uses bilevel positive airway pressure (BPAP) ventilation at home 12/8cm Dysarthria Unstable angina Nonischemic congestive cardiomyopathy Chronic low back pain Elevated blood uric acid level History of sleep study 2017 at [facility]: Optimal pressure settings with BiPAP found to be 12/8 cm COPD (chronic obstructive pulmonary disease) COVID-19 Wound infection following procedure infection with defibrillator lead revision, removed , scarring left subclavian area from this Cardiac resynchronization therapy defibrillator (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 [place], 07/11/2020 GERD (gastroesophageal reflux disease) ALBERTO (obstructive sleep apnea) C. difficile diarrhea Cataracts, bilateral CHF (congestive heart failure) Urolithiasis Multi stone former, calcium oxalate mono and dihydrate. Also calcium phosphate. Multiple interventions including endoscopy with laser lithotripsy and ESWL. Metabolic treatment with potassium citrate Hemorrhoids Psychiatric care Right ureteral calculus Osteoarthritis of hands, bilateral Cardiomyopathy Mixed hyperlipidemia Pacemaker Hypertension Surgical History S/P epidural steroid injection Status post hemorrhoidectomy Hx of umbilical hernia repair Hx of lithotripsy History of urethral stent H/O esophagogastroduodenoscopy (02/27/21) gastritis, duodenitis History of colonoscopy (02/27/21) descending colon polyp, hemorrhoids History of carpal tunnel release of both wrists History of permanent cardiac pacemaker placement Hx of cataract surgery Hx of shoulder surgery Family History Grandfather CAD (coronary artery disease) Brother Cancer colon cancer Diabetes Mother Diabetes Father No problems noted. Other Hypertension Rheumatoid arthritis Social History Smoking and tobacco/nicotine status: current every day tobacco/nicotine user cigarettes [ Other cigarette details: quit smoking cigarettes ] and smokeless tobacco Smokeless tobacco user: chewing tobacco Smokeless tobacco details: 3/ can day Second hand smoke exposure: No Alcohol intake: former Year of sobriety/quit date alcohol: 1997 Substance/Drug Use: former Date of last use: 1997 Caregiver/support person: Yes Lives independently: Yes Household members: spouse Marital status: service: No Current occupational status: disabled Current gender identity: Male Special fernando needs: No Agree to transfusion: Yes Vitals/I&O/Wt Last Vital Signs Temp 97.6 F 03/08/24 02:30 Pulse 112 H 03/08/24 02:30 Resp 22 H 03/08/24 02:30 BP 112/75 03/08/24 02:30 Pulse Ox 94 03/08/24 02:30 O2 Del Method Nasal Cannula 03/08/24 02:30 O2 Flow Rate 2 03/08/24 02:30 03/07/24 03/07/24 03/08/24 14:59 22:59 06:59 Intake Total 1000 / 1000 Balance 1000 / 1000 Weight last 48 hrs Weight 108.465 kg Weight 110.677 kg Physical Exam 2 Narrative: Generalized weakness and fatigue Pleasant cooperative Nonfocal neuroexam Abdominal tenderness left arm S1, S2 Tachycardia No audible stridor or wheezing Currently requiring 2 L Data 03/08/24 10:55 03/08/24 10:55 A&P Assessment and plan (1) Diabetes: Qualifiers: Diabetes mellitus complication status: with hyperglycemia Diabetes mellitus rodent exterminator insulin use: without rodent exterminator use Diabetes mellitus type: t ype 2 Qualified Code(s): E11.65 - Type 2 diabetes mellitus with hyperglycemia (2) Gastroparesis: (3) Nausea & vomiting: Qualifiers: Vomiting type: unspecified Qualified Code(s): R11.2 - Nausea with vomiting, unspecified (4) Infarction of spleen: (5) ALBERTO (obstructive sleep apnea): (6) Hypomagnesemia: (7) PVCs (premature ventricular contractions): Plan Splenic infarct Findings close abdominal stroke Rule out thromboembolic phenomenon I will start patient on therapeutic anticoagulating agent Request physical therapy as well Patient experiencing tachycardia related abdominal pain will keep him on IV fluids, control abdominal pain with opioids Will keep patient on insulin sliding scale Patient extremely frail lethargic with decreased functional Hypomagnesemia: To be replenished Full code Consistent carbohydrate diet Hypomagnesemia: PVCs noted: IV magnesium given Request records from [facility] Spoke with his Requested echo Attestations 2 Medical Necessity Statement*: More than 2 midnights anticipated Diagnoses Type 2 diabetes mellitus with hyperglycemia, without long-term current use of insulin E11.65 Diabetes mellitus complication status: with hyperglycemia Diabetes mellitus longterm insulin use: without rodent exterminator use Diabetes mellitus type: type 2 Gastroparesis K31.84 Nausea and vomiting, unspecified vomiting type R11.2 Vomiting type: unspecified Infarction of spleen D73.5 ALBERTO (obstructive sleep apnea) G47.33 Hypomagnesemia E83.42 PVCs (premature ventricular contractions) I49.3
[2024-03-08] MEDS: sodium chloride 0.9% 1,000 ML 75 ML IV ×2 (06:46→19:19)
[2024-03-08 07:07] LABS: Glucose Point of Care 437 mg/dL (70-110)
[2024-03-08 07:29] LABS: Estmated Average Glucose 220; Hemoglobin A1C 9.3 % (4.0-6.0)
[2024-03-08 07:44] LABS: Vitamin B12 896 pg/mL (232-1245)
[2024-03-08] MEDS: ipratropium-albuterol 3 mL Neb INHALATION (07:51)
--- NOTE | 2024-03-08 08:05 | PC.PHAR ---
pt states he takes care of his own medications-pt states not taken trulicity 1.5mg q7d for 3 months ext shows last filled 12/22/23 30d/s-pt states uses lantus solostar 25 units hs ext shows last filled 12/01/23 140d/s 10 units daily-pt states he is unsure if he takes protonix 40mg bid ext shows last filled 01/30/24 30d/s-pt states he does not take prilosec 40mg daily ext shows last filled 12/15/23 90d/s- notes are made in the pharmacy comments
[2024-03-08] MEDS: insulin lispro 100 unit/1 mL SUBCUT ×3 (08:56→17:58)
[2024-03-08] MEDS: apixaban 5 mg Tablet PO ×2 (08:57→21:35)
[2024-03-08] MEDS: morphine 4 mg/mL SDV 1 mL 2 MG IVP ×3 (11:09→22:04)
[2024-03-08 11:17] LABS: Basophils # 0.1 10^3/uL (0.0-0.1); Basophils % 0.4 %; Eosinophils # 0.2 10^3/uL (0.0-0.8); Eosinophils % 1.4 %; Hematocrit 50.4 % (37-53); Lymphocytes # 0.7 10^3/uL (0.8-4.8); Mean Corpuscular HGB Conc 33.5 g/dL (30-55); Mean Corpuscular Hemoglobin 30.7 pg (27-33); Mean Corpuscular Volume 91.5 fl (82-101); Mean Platelet Volume 11.4 fL (7.4-10.4); Monocytes # 0.6 10^3/uL (0.2-0.9); Monocytes % 3.5 %; Neutrophils # 14.91 10^3/uL (1.8-7.7); Neutrophils % 90.4 %; Nucleated Red Blood Cells % 0 %; Platelet Count 269 10^3/cmm (157-399); Red Blood Count 5.51 10^6/uL (3.85-5.65); Red Cell Distribution Width 13.7 % (12.1-15.1)
[2024-03-08 11:20] LABS: Glucose Point of Care 377 mg/dL (70-110)
[2024-03-08 11:45] LABS: Alanine Aminotransferase 38 U/L (0-41); Albumin Level 2.8 g/dL (3.5-5.2); Alkaline Phosphatase 155 U/L (40-130); Blood Urea Nitrogen 20 mg/dL (8-23); Calcium 9.1 mg/dL (8.5-10.5); Carbon Dioxide 18 mmol/L (22-29); Chloride 100 mmol/L (98-107); Creatinine Clr Calc Pharmacy 117.9244; Globulin 3.5 g/dL (1.3-4.6); Glomerular Filtration Rate 97.6 mL/min (90-130); Glucose 394 mg/dL (65-115); Magnesium 1.5 mg/dL (1.7-2.3); Osmolality Calculated 293 mOsm/kg (285-295); Sodium 132 mmol/L (136-145); Total Protein 6.3 g/dL (6.6-8.7)
[2024-03-08 11:46] LABS: Anion Gap 18.3 (5-19); Aspartate Amino Transferase 22 U/L (0-40); Potassium 4.3 mmol/L (3.5-5.1)
--- NOTE | 2024-03-08 13:33 | USCV_ITS ---
Catherine Amrik Age: 63 Gender: M : 1960 Exam Date: 03/08/2024 18:08 Ordering Phys: Khalida Gomez MD Technologist: NABIL Exam Location: [facility] [place] Indication: Order says, IE . patient has suffered a recent CVA, history of pacer. BP: 118 / 66 HR: 98 Rhythm: Atrial fibrillation Technical Quality: Adequate MEASUREMENTS (Male / Female) Normal Values 2D ECHO LV Diastolic Diameter PLAX 6.8 cm 4.2 - 5.9 / 3.9 - 5.3 cm IVS Diastolic Thickness 0.9 cm 0.6 - 1.0 / 0.6 - 0.9 cm IVS Systolic Thickness 1.0 cm LVPW Diastolic Thickness 1.3 cm 0.6 - 1.0 / 0.6 - 0.9 cm LVPW Systolic Thickness 1.8 cm LVOT Diameter 1.8 cm LV Ejection Fraction 2D Teich 40.7 % LV Ejection Fraction MOD 2C 12.4 % LV Ejection Fraction 2C AL 10.6 % LA Diameter 4.6 cm LA Sys Volume AL 108.1 cm cubed LA Sys Volume Index AL 44.4 cm cubed/m squared Aorta at Sinotubular Diameter 3.1 cm IVC Diameter 1.5 cm M-MODE LA Ao Ratio MM 1.6 AV Cusp Separation MM 1.8 cm DOPPLER AV Peak Velocity 177.0 cm/s LVOT Peak Velocity 99.0 cm/s AV Area Cont Eq vti 1.8 cm squared AV Area Cont Eq pk 1.5 cm squared MV Peak Velocity 109.0 cm/s MV Area PHT 4.5 cm squared Mitral E to A Ratio 0.0 TR Peak Velocity 322.0 cm/s TR Peak Gradient 41.5 mmHg TV Peak E Velocity 88.0 cm/s Right Atrial Pressure 10.0 mmHg Pulmonary Artery Systolic Pressu 51.5 mmHg PV Peak Velocity 161.0 cm/s FINDINGS Left Ventricle Left ventricle is dilated. LV systolic function is severely reduced with EF of 10 to 15%. Severe global hypokinesis. Right Ventricle Normal in size. Pacemaker lead is seen Right Atrium Normal in size Left Atrium Dilated Mitral Valve Moderate mitral annular calcification. Mild mitral regurgitation. There is a mobile echogenic structure seen close to atrial aspect of anterior mitral leaflet. Possible vegetation Aortic Valve Aortic valve is thickened. Tricuspid Valve Mild tricuspid regurgitation. Insufficient TR jet to calculate RVSP Pulmonic Valve Not well visualized Pericardium Normal Aorta Normal in size IVC Appears to be normal CONCLUSIONS LV systolic function is severely reduced with EF of 10-15%. LV thrombus can not be ruled out. Left atrial dilation Mild mitral regurgitation. Possible vegetation seen on atrial aspect of anterior mitral leaflet. Mild tricuspid regurgitation Recommend JASON to better assess vegetation/echogenic structure close to atrial aspect of anterior mitral leaflet. Will also rule out LV thrombus. Reese Andrew MD (Electronically Signed) Final Date: 09 March 2024 11:14 S
[2024-03-08] MEDS: magnesium sulfate premix 2 GM/50 ML PIGGYBACK IV (13:42)
--- NOTE | 2024-03-08 13:48 | XRR_ITS ---
PROCEDURE INFORMATION: Exam: XR Chest Exam date and time: 03/08/2024 2:16 PM Age: 63 years old Clinical indication: Cardiovascular condition or disease; Congestive heart failure (chf); Other: Not spceified TECHNIQUE: Imaging protocol: Radiologic exam of the chest. Views: 1 view. COMPARISON: CR XR chest 1V portable [id number] 02/27/2024 8:17 AM FINDINGS: Tubes, catheters and devices: Multi lead pacemaker/defibrillator. Lungs: Mild hypoventilatory changes at the left lung base. Pleural spaces: Unremarkable. No pleural effusion. No pneumothorax. Heart/Mediastinum: Unremarkable. No cardiomegaly. Bones/joints: Unremarkable. XR/XR chest 1V portable [id number] IMPRESSION: No acute findings.
[2024-03-08] MEDS: sodium chloride 0.9% 250 ML IV (14:37)
[2024-03-08 16:44] LABS: Glucose Point of Care 317 mg/dL (70-110)
[2024-03-08 20:47] LABS: Glucose Point of Care 325 mg/dL (70-110)
[2024-03-08] MEDS: insulin glargine 100 units/1 mL 30 UNIT SUBCUT (21:35)
[2024-03-09] VITALS (11 sets, daily range): BP systolic 120–133; BP diastolic 73–87; PULSE 70–112; RESP 16–20; TEMP 36.4–37.1; O2SAT 91–93
[2024-03-09 05:22] LABS: Basophils # 0.1 10^3/uL (0.0-0.1); Basophils % 0.3 %; Hematocrit 44.8 % (37-53); Lymphocytes # 1.1 10^3/uL (0.8-4.8); Lymphocytes % 5.6 %; Mean Corpuscular HGB Conc 33.9 g/dL (30-55); Mean Corpuscular Hemoglobin 30.6 pg (27-33); Mean Corpuscular Volume 90.1 fl (82-101); Mean Platelet Volume 11.2 fL (7.4-10.4); Monocytes # 0.4 10^3/uL (0.2-0.9); Monocytes % 1.9 %; Neutrophils # 17.55 10^3/uL (1.8-7.7); Neutrophils % 91.6 %; Nucleated Red Blood Cells % 0 %; Platelet Count 240 10^3/cmm (157-399); Red Blood Count 4.97 10^6/uL (3.85-5.65); Red Cell Distribution Width 13.9 % (12.1-15.1); White Blood Count 19.16 10^3/uL (3.29-11.43)
[2024-03-09 05:37] LABS: Anion Gap 14.9 (5-19); Blood Urea Nitrogen 18 mg/dL (8-23); Calcium 9.1 mg/dL (8.5-10.5); Carbon Dioxide 21 mmol/L (22-29); Chloride 96 mmol/L (98-107); Creatinine Clr Calc Pharmacy 157.2326; Glomerular Filtration Rate 136.1 mL/min (90-130); Glucose 239 mg/dL (65-115); Magnesium 1.7 mg/dL (1.7-2.3); Osmolality Calculated 276 mOsm/kg (285-295); Phosphorus 2.8 mg/dL (2.5-4.5); Potassium 3.9 mmol/L (3.5-5.1); Sodium 128 mmol/L (136-145)
[2024-03-09 06:41] LABS: Glucose Point of Care 229 mg/dL (70-110)
[2024-03-09] MEDS: insulin lispro 100 unit/1 mL SUBCUT ×3 (07:39→17:20)
[2024-03-09] MEDS: morphine 4 mg/mL SDV 1 mL 2 MG IVP ×3 (08:07→22:09)
[2024-03-09] MEDS: apixaban 5 mg Tablet PO ×2 (08:10→20:25)
[2024-03-09] MEDS: sodium chloride 0.9% 1,000 ML 75 ML IV (08:12)
[2024-03-09] MEDS: lactulose oral liq 20 gm/30 mL UDC PO (09:02)
--- NOTE | 2024-03-09 09:23 | PC.CHAP ---
Pastoral Care Encounter/Spiritual Assessment Type of Contact [] Declined repairer hairspring visit [] Patient/Family/Request visit [] Outpatient visit [] Follow-up visit [] Physician referral [] Code/Alert [x] Routine visit [] Staff referral [] Actively dying [] Patient sleeping [x] Family support [] [] Out of room [] Palliative care [] [] Receiving care in room [] Pre-surgical visit [] Trauma [] Long length of stay [] ICU visit [] Other: Relational/Emotional Strength [x] Patient feels connected with others/family/visitors/staff [] Distress [] Loneliness/isolation [] Abandonment Spirituality of Patient [x] Person of [place] [] Attends Church of their [place] [x] Believes in Prayer [] Reads Bible or Pentecostal materials [] There are Spiritual issues to be addressed Truck Greaser Interventions [x] Prayer [x] Active listening [] Non-anxious presence [x] Spiritual/emotional support [] Crisis/trauma care [] Spiritual counseling [] Bereavement support [] Provided bereavement packet [] Provided Bible/devotional materials [] Provided toy/stuffed animal, coloring book to patient or family member [] Provided Communion [] Anointing/[place] [] Salvation [x] Completed spiritual assessment [] Other: Impact on Illness or Injury [] Angry [] Fearful [] Anxious [] Often cries [] Exhaustion [] Unable to work [] Unable to attend anabaptist [] Unable to walk/stand [] Unable to read [] Unable to drive [] Unable to eat/drink [] Unable to sleep [] Unable to be with family [] Patient intubated [] Other: Summary Time spent with patient 5 min
--- NOTE | 2024-03-09 11:38 | PM.PN ---
Subjective Subjective: Persistent leukocytosis Patient had a bowel movement today after getting lactulose he was complaining of constipation Blood cultures negative to date Concern for endocarditis Vegetation noted on echo Will request cardiology consultation for transesophageal echo Start vancomycin and ceftriaxone Afebrile Vitals/I&O/Wt Last Vital Signs Temp 98.1 F 03/09/24 08:00 Pulse 80 03/09/24 11:17 Resp 17 03/09/24 11:17 BP 130/1 03/09/24 11:17 Pulse Ox 92 03/09/24 11:17 O2 Del Method Room Air 03/09/24 11:17 O2 Flow Rate 2 03/08/24 02:30 03/08/24 03/09/24 03/09/24 22:59 06:59 14:59 Intake Total 1910.25 / 2561.25 966.25 / 966.25 Balance 1910. / 2060. 966.25 / 966.25 Weight last 48 hrs Weight 117.934 kg Weight 117.934 kg Weight 108.465 kg Weight 110.677 kg Physical Exam Narrative: Pleasant cooperative Able to use a walker Had a bowel movement today Awake and alert Distended abdomen Tender left upper quadrant S1, S2 variable paced rhythm Sign of fluid overload Nonfocal neuroexam Family is at the bedside Currently on room air Hemodynamically stable Data 03/09/24 05:00 03/09/24 05:00 Micro: Microbiology 03/08/24 14:40 Blood Culture - Preliminary Blood SPECIMEN COLLECTED 03/08/24 14:02 Blood Culture - Preliminary Blood SPECIMEN COLLECTED A&P Assessment and plan (1) Endocarditis: (2) Diabetes: Qualifiers: Diabetes mellitus type: type 2 Diabetes mellitus 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 insulin use: without 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 use Diabetes mellitus complication status: with hyperglycemia Qualified Code(s): E11.65 - Type 2 diabetes mellitus with hyperglycemia (3) Gastroparesis: (4) Infarction of spleen: (5) CVA (cerebral vascular accident): (6) ALBERTO (obstructive sleep apnea): (7) COPD (chronic obstructive pulmonary disease): Plan Left upper quadrant pain related to splenic infarct Concern for endocarditis Left ventricle thrombus needs to be ruled out Will request cardiac consultation and start patient today on antibiotics vancomycin and ceftriaxone Blood cultures taken yesterday No fever today Systolic CHF exacerbation Judicious use of IV fluids EF is extremely low Patient had angiogram earlier this year, he has history of nonischemic cardiomyopathy status post AICD/pacemaker Hardware related endocarditis?, Left ventricle thrombus Worsening leukocytosis adding antibiotics Cultures taken CVA, right-sided weakness suffered from CVA a week ago Patient is using a walker for ambulation not interested in group home placement Patient most likely will need PICC line placement 6 to 8 weeks of IV antibiotics Full code Cardiac consistent carb diet Insulin sliding scale Spoke with Dr. Andrew travel counselor automobile club regarding transesophageal echo Attestations Medical Necessity Statement*: Continue medical management Diagnoses Endocarditis I38 Type 2 diabetes mellitus with hyperglycemia, without long-term current use of insulin E11.65 Diabetes mellitus type: type 2 Diabetes mellitus residential insulin use: without 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 use Diabetes mellitus complication status: with hyperglycemia Gastroparesis K31.84 Infarction of spleen D73.5 CVA (cerebral vascular accident) I63.9 ALBERTO (obstructive sleep apnea) G47.33 Chronic obstructive pulmonary disease, unspecified COPD type J44.9
[2024-03-09 11:46] LABS: Glucose Point of Care 269 mg/dL (70-110)
[2024-03-09] MEDS: vancomycin 2,000 MG/400 ML PIGGYBACK 200 MG IV (11:58)
[2024-03-09 12:18] LABS: C Reactive Protein 345.5 mg/L (0.0-4.9); Lactate Dehydrogenase 403 U/L (135-225)
--- NOTE | 2024-03-09 16:38 | PM.CONSULT ---
Providers/Reason For Consult Consulting Physician/Specialty*: Reese Andrew MD/ Cardiology Reason for Consult*: Transesophageal echocardiogram Requesting Physician: Dr Gomez Attending Physician: Khalida Gomez MD Primary Care Provider: ANDRES Pettit History of Present Illness History of Present Illness Amrik Alexander is a 63 year old male with past medical history of cardiomyopathy, ICD in place, presented to hospital with abdominal discomfort, nausea and vomiting. Found to have splenic infarct. Echo was performed that shows severely reduced LV systolic function, LV thrombus cannot be ruled out and has possible vegetation on anterior mitral valve leaflet. Cardiology consulted for transesophageal echocardiogram. He had a recent stroke as well. Review of Systems Const: Denies: fever(s) Eyes: Denies: change in vision ENMT: Denies: throat pain Card: Denies: chest pain Resp: Denies: dyspnea GI: Reports: abdominal pain, nausea and vomiting : Denies: flank pain Musc: Denies: neck pain Skin/Breast: Denies: rash Neuro: Denies: headache(s) Psych: Reports: anxiety Medications/Allergies Home Medications Medication Instructions Recorded Confirmed Last Taken Type blood-glucose meter (Blood Glucose #1 ea 07/06/20 03/10/24 Unknown Rx Monitoring kit) albuterol sulfate 90 mcg/actuation 2 puff inhalation Q6H PRN 05/20/22 03/10/24 04/06/23 Rx aerosol inhaler (ProAir HFA) shortness of breath or wheezing #18 grams nebulizer machine with tubing and #1 ea 09/09/22 03/10/24 Unknown Rx mask blood sugar diagnostic (Blood #100 ea 12/05/22 03/10/24 Unknown Rx Glucose Test strips) lancets 33 gauge (BD Ultra Fine #100 ea 12/05/22 03/10/24 Unknown Rx Lancets) xejvjnpusjqj-pef-ioukz acid-vit 1 tab PO DAILY 04/07/23 03/10/24 11/17/23 History K-lycop 400 mcg-20 mcg-370 mcg tablet (Men's 50 Plus Multivitamin) albuterol sulfate 2.5 mg/3 mL 2.5 mg (3 mL) inhalation QID PRN 06/10/23 03/10/24 Unknown Rx (0.083 %) solution for nebulization shortness of breath or wheezing #180 mL fluticasone propionate 50 2 spray intranasal DAILY PRN 08/17/23 03/10/24 Unknown History mcg/actuation nasal Allergy Symptoms spray,suspension (Flonase Allergy Relief) clopidogrel 75 mg tablet 75 mg PO DAILY #30 tabs 11/20/23 03/10/24 Unknown Rx sacubitril 97 mg-valsartan 103 mg 1 tab PO BID 11/21/23 03/10/24 Unknown History tablet (Entresto) omega 4-xqo-bwq-fish oil 300 1 cap PO DAILY #90 caps 12/08/23 03/10/24 Unknown Rx mg-1,000 mg capsule (Fish Oil) allopurinol 300 mg tablet 300 mg PO QAM #90 tabs 01/19/24 03/10/24 Unknown Rx carvedilol 25 mg tablet 25 mg PO BID 90 days #180 tabs 01/19/24 03/10/24 Unknown Rx promethazine 25 mg tablet 25 mg PO Q6H PRN nausea and 02/18/24 03/10/24 Unknown Rx vomiting #20 tabs dapagliflozin propanediol 10 mg 10 mg PO DAILY 02/27/24 03/10/24 Unknown History tablet (Farxiga) ibuprofen 800 mg tablet 800 mg PO Q8H PRN Pain or Fever 02/27/24 03/10/24 Unknown History insulin glargine 100 unit/mL (3 25 unit SUBCUT BEDTIME 02/27/24 03/10/24 Unknown History mL) subcutaneous pen (Lantus Solostar U-100 Insulin) ondansetron HCl 8 mg tablet 8 mg PO TID PRN Nausea And Vomiting 02/27/24 03/10/24 Unknown History rosuvastatin 40 mg tablet 40 mg PO BEDTIME 02/27/24 03/10/24 Unknown History aspirin 81 mg tablet,delayed 81 mg PO DAILY 03/08/24 03/10/24 Unknown History release furosemide 20 mg tablet (Lasix) 20 mg PO DAILY 03/08/24 03/10/24 Unknown History levocetirizine 5 mg tablet (Xyzal) 5 mg PO DAILY PRN allergies 03/08/24 03/10/24 Unknown History magnesium L-lactate 84 mg 84 mg PO DAILY 03/08/24 03/10/24 Unknown History tablet,extended release pantoprazole 40 mg tablet,delayed 40 mg PO BID 03/08/24 03/10/24 Unknown History release (Protonix) potassium citrate 10 mEq (1,080 20 meq PO BID 03/08/24 03/10/24 Unknown History mg) tablet,extended release sertraline 100 mg tablet 100 mg PO QAM 03/08/24 03/10/24 Unknown History Allergies Allergy/AdvReac Type Severity Reaction Status Date / Time isosorbide Allergy unknown Verified 03/08/24 08:05 Penicillins AdvReac rash Verified 03/08/24 08:05 Current Medications Generic Name Dose Route Start Last Admin Trade Name Freq PRN Reason Stop Dose Admin Albuterol/Ipratropium 3 ml 03/08/24 06:36 03/08/24 07:51 Ipratropium-Albuterol 3 Ml Neb INHALATION 3 ml Q6H PRN Administration SHORTNESS OF BREATH Apixaban 5 mg 03/08/24 09:00 03/09/24 08:10 Apixaban 5 Mg Tablet PO 5 mg BID@0900,2100 JOSHUA Administration Vancomycin/PEG/NADA/Lysine/Water 2,000 mg in 400 mls @ 200 mls/hr 03/09/24 12:00 03/09/24 14:08 Vancocin IV Infused Q12H JOSHUA Infusion Insulin Glargine 30 unit 03/08/24 21:00 03/08/24 21:35 Insulin Glargine 100 Units/1 Ml SUBCUT 30 unit BEDTIME JOSHUA Administration Insulin Human Lispro 0 unit 03/08/24 08:00 03/09/24 11:55 Insulin Lispro 100 Unit/1 Ml SUBCUT 10 unit TIDWM JOSHUA Administration Protocol Morphine Sulfate 2 mg 03/08/24 06:39 03/09/24 08:07 Morphine 4 Mg/Ml Sdv 1 Ml IVP 2 mg Q4H PRN Administration SEVERE PAIN PFSH Acute PFSH: Medical History COPD (chronic obstructive pulmonary disease) Major depressive disorder, recurrent episode, mild degree Major depressive disorder in partial remission Allergic rhinitis Bipolar II disorder Diabetes Non-ST elevation MA (NSTEMI) Uses bilevel positive airway pressure (BPAP) ventilation at home 12/8cm Dysarthria Unstable angina Nonischemic congestive cardiomyopathy Chronic low back pain Elevated blood uric acid level History of sleep study 2017 at [facility]: Optimal pressure settings with BiPAP found to be 12/8 cm COVID-19 Wound infection following procedure infection with defibrillator lead revision, removed , scarring left subclavian area from this Cardiac resynchronization therapy 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 [place], 07/11/2020 GERD (gastroesophageal reflux disease) ALBERTO (obstructive sleep apnea) C. difficile diarrhea Cataracts, bilateral CHF (congestive heart failure) Urolithiasis Multi stone former, calcium oxalate mono and dihydrate. Also calcium phosphate. Multiple interventions including endoscopy with laser lithotripsy and ESWL. Metabolic treatment with potassium citrate Hemorrhoids Psychiatric care Right ureteral calculus Osteoarthritis of hands, bilateral Cardiomyopathy Mixed hyperlipidemia Pacemaker Hypertension Surgical History S/P epidural steroid injection Status post hemorrhoidectomy Hx of umbilical hernia repair Hx of lithotripsy History of urethral stent H/O esophagogastroduodenoscopy (02/27/21) gastritis, duodenitis History of colonoscopy (02/27/21) descending colon polyp, hemorrhoids History of carpal tunnel release of both wrists History of permanent cardiac pacemaker placement Hx of cataract surgery Hx of shoulder surgery Family History Grandfather CAD (coronary artery disease) Brother Cancer colon cancer Diabetes Mother Diabetes Father No problems noted. Other Hypertension Rheumatoid arthritis Social History Smoking and tobacco/nicotine status: current every day tobacco/nicotine user cigarettes [ Other cigarette details: quit smoking cigarettes ] and smokeless tobacco Smokeless tobacco user: chewing tobacco Smokeless tobacco details: 3/4 can day Second hand smoke exposure: No Alcohol intake: former Year of sobriety/quit date alcohol: 1997 Substance/Drug Use: former Date of last use: 1997 Caregiver/support person: Yes Lives independently: Yes Household members: spouse Marital status: service: No Current occupational status: disabled Current gender identity: Male Special fernando needs: No Agree to transfusion: Yes Vitals/I&O/Wt Last Vital Signs Temp 98.1 F 03/09/24 08:00 Pulse 112 H 03/09/24 14:00 Resp 17 03/09/24 11:17 BP 130/1 03/09/24 11:17 Pulse Ox 92 03/09/24 11:17 O2 Del Method Room Air 03/09/24 11:17 O2 Flow Rate 2 03/08/24 02:30 03/09/24 03/09/24 03/09/24 06:59 14:59 22:59 Intake Total 1905.00 / 1905.00 Balance 1905.00 / 1905.00 Weight last 48 hrs Weight 260 lb Weight 260 lb Weight 239 lb 2 oz Weight 244 lb Physical Exam Narrative: GENERAL: Patient is alert, awake and oriented x3. [] NECK: No jugular vein distension. [] HEENT: No cyanosis. No icterus. No pallor. [] HEART: Regular S1 and S2. No murmur, rub or gallop. [] LUNGS: Clear to auscultate bilaterally. [] EXTREMITIES: Lower extremities with 1+ edema bilaterally. Data 03/10/24 05:16 03/10/24 05:16 Micro: Microbiology 03/08/24 14:40 Blood Culture - Preliminary Blood NEGATIVE TO DATE 03/08/24 14:02 Blood Culture - Preliminary Blood NEGATIVE TO DATE A&P Assessment and plan (1) CVA (cerebral vascular accident): (2) Nausea & vomiting: Qualifiers: Vomiting type: unspecified Qualified Code(s): R11.2 - Nausea with vomiting, unspecified (3) Infarction of spleen: Plan Patient had a recent stroke. Also has splenic infarct. Likely thromboembolic phenomenon. Echo shows possible vegetation on anterior mitral valve leaflet. Will need further confirmation and assessment with transesophageal echocardiogram. N.p.o. past midnight. Initiate antibiotic therapy Will also rule out left ventricular thrombus with JASON Thank you for involving us with care of this patient. We will continue to follow. Please call with questions. Consult Attestations Medical Necessity Statement: Care expected to cross 2 midnights. Coding Level of Care Code Acute Code for Chg Fwd Diagnoses CVA (cerebral vascular accident) I63.9 Nausea and vomiting, unspecified vomiting type R11.2 Vomiting type: unspecified Infarction of spleen D73.5
[2024-03-09 17:07] LABS: Glucose Point of Care 240 mg/dL (70-110)
[2024-03-09] MEDS: sennosides-docusate Tablet 2 TAB PO (17:19)
[2024-03-09] MEDS: acetaminophen 500 mg Tablet PO (20:25)
[2024-03-09] MEDS: insulin glargine 100 units/1 mL 30 UNIT SUBCUT (20:26)
[2024-03-09 21:04] LABS: Glucose Point of Care 248 mg/dL (70-110)
[2024-03-10] VITALS (52 sets, daily range): BP systolic 116–163; BP diastolic 74–113; PULSE 76–129; RESP 8–47; TEMP 36.2–36.9; O2SAT 92–100; BMI 39.5
[2024-03-10] MEDS: vancomycin 2,000 MG/400 ML PIGGYBACK 200 MG IV ×3 (00:57→23:18)
[2024-03-10 01:03] LABS: Bacillus cereus group Not Detected (NOT DETECT); Bacillus subtillis group Not Detected (NOT DETECT); Corynebacterium Not Detected (NOT DETECT); Cutibacterium acnes (P.acnes) Not Detected (NOT DETECT); Enterococcus Not Detected (NOT DETECT); Enterococcus faecalis Not Detected (NOT DETECT); Enterococcus faecium Not Detected (NOT DETECT); Lactobacillus species Not Detected (NOT DETECT); Listeria Not Detected (NOT DETECT); Listeria monocytogenes Not Detected (NOT DETECT); Micrococcus Not Detected (NOT DETECT); Pan Candida Not Detected (NOT DETECT); Pan Gram-Negative Not Detected (NOT DETECT); Staphylococcus epidermidis Detected (NOT DETECT); Staphylococcus lugdunensis Not Detected (NOT DETECT); Staphylococcus species Detected (NOT DETECT); Streptococcus agalactiae Not Detected (NOT DETECT); Streptococcus anginosus group Not Detected (NOT DETECT); Streptococcus pneumoniae Not Detected (NOT DETECT); Streptococcus pyogenes Not Detected (NOT DETECT); Streptococcus species Not Detected (NOT DETECT); mecA Not Detected (NOT DETECT); mecC Not Detected (NOT DETECT)
[2024-03-10 05:33] LABS: Basophils # 0.1 10^3/uL (0.0-0.1); Basophils % 0.3 %; Eosinophils % 0.2 %; Hematocrit 42.1 % (37-53); Lymphocytes # 0.8 10^3/uL (0.8-4.8); Lymphocytes % 4.5 %; Mean Corpuscular HGB Conc 33.7 g/dL (30-55); Mean Corpuscular Hemoglobin 30.5 pg (27-33); Mean Corpuscular Volume 90.3 fl (82-101); Mean Platelet Volume 11.1 fL (7.4-10.4); Monocytes # 0.3 10^3/uL (0.2-0.9); Monocytes % 1.6 %; Neutrophils # 17.34 10^3/uL (1.8-7.7); Nucleated Red Blood Cells % 0 %; Platelet Count 209 10^3/cmm (157-399); Red Blood Count 4.66 10^6/uL (3.85-5.65); Red Cell Distribution Width 13.9 % (12.1-15.1); White Blood Count 18.85 10^3/uL (3.29-11.43)
[2024-03-10 05:50] LABS: Anion Gap 16.5 (5-19); Blood Urea Nitrogen 14 mg/dL (8-23); Carbon Dioxide 20 mmol/L (22-29); Chloride 97 mmol/L (98-107); Creatinine Clr Calc Pharmacy 157.2326; Glomerular Filtration Rate 136.1 mL/min (90-130); Glucose 224 mg/dL (65-115); Osmolality Calculated 277 mOsm/kg (285-295); Potassium 3.5 mmol/L (3.5-5.1); Sodium 130 mmol/L (136-145)
[2024-03-10 06:40] LABS: Glucose Point of Care 219 mg/dL (70-110)
[2024-03-10] MEDS: morphine 4 mg/mL SDV 1 mL 2 MG IVP ×3 (08:11→17:54)
[2024-03-10] MEDS: cefTRIAXone 2,000 MG in sodium chloride 0.9% (plus) 50 ML 100 MG IV (08:11)
--- NOTE | 2024-03-10 08:11 | P.PN_ITS ---
Subjective 2 Subjective: Patient had JASON today that shows a left atrial mass at base of mitral valve. In some views appears to be arising from interatrial septum. Differentials are endocarditis vs myxoma. It is mobile. Vitals/I&O/Wt Last Vital Signs Temp 98.2 F 03/10/24 07:12 Pulse 86 03/10/24 07:12 Resp 16 03/10/24 07:12 BP 134/89 03/10/24 07:12 Pulse Ox 95 03/10/24 07:12 O2 Del Method CPAP 03/10/24 07:12 O2 Flow Rate 2 03/08/24 02:30 03/09/24 03/10/24 03/10/24 22:59 06:59 14:59 Intake Total 236 / 2141.00 400 / 2541.00 Output Total 300 / 300 150 / 150 Balance 236 / 2141.00 100 / 2241.00 -150 / -150 Weight last 48 hrs Weight 260 lb Physical Exam 2 Narrative: GENERAL: Patient is alert, awake and oriented x3. [] NECK: No jugular vein distension. [] HEENT: No cyanosis. No icterus. No pallor. [] HEART: Regular S1 and S2. No murmur, rub or gallop. [] LUNGS: Clear to auscultate bilaterally. [] EXTREMITIES: Lower extremities with 1+ edema bilaterally. Data 03/10/24 05:16 03/10/24 05:16 Micro: Microbiology 03/10/24 05:18 Blood Culture - Preliminary Blood SPECIMEN COLLECTED 03/10/24 05:16 Blood Culture - Preliminary Blood SPECIMEN COLLECTED 03/08/24 14:02 Blood Culture - Preliminary Blood NEGATIVE TO DATE 03/08/24 14:40 Blood Culture - Preliminary Blood NEGATIVE TO DATE A&P Assessment and plan (1) CVA (cerebral vascular accident): (2) Nausea & vomiting: Qualifiers: Vomiting type: unspecified Qualified Code(s): R11.2 - Nausea with vomiting, unspecified (3) Infarction of spleen: Plan Patient's transesophageal echocardiogram showing left atrial mass measuring 1.3 cm in maximum dimension. Differentials are infective endocarditis versus myxoma. His white cell count is elevated. Also has preliminary report per primary team showing good cultures positive for cocci. He needs CT surgical evaluation as has been having embolic phenomenon and has mobile left atrial mass. (Appears arising from interatrial septum with very close proximity to the base of mitral valve. Continue antibiotics. Continue anticoagulation for now. Obtain limited echocardiogram with contrast to rule out LV thrombus. Thank you for involving us with care of this patient. We will continue to follow. Please call with questions. Attestations 2 Medical Necessity Statement*: Care expected to cross 2 midnights. Coding Level of Care Code Acute Code for [facility] Diagnoses CVA (cerebral vascular accident) I63.9 Nausea and vomiting, unspecified vomiting type R11.2 Vomiting type: unspecified Infarction of spleen D73.5
[2024-03-10] MEDS: apixaban 5 mg Tablet PO ×2 (08:12→20:11)
[2024-03-10] MEDS: sennosides-docusate Tablet 2 TAB PO ×2 (08:12→17:18)
[2024-03-10] MEDS: insulin lispro 100 unit/1 mL SUBCUT ×3 (08:28→17:19)
--- NOTE | 2024-03-10 08:46 | USCV_ITS ---
Amrik Alexander Age: 63 Gender: M : 1960 Exam Date: 03/10/2024 09:59 Ordering Phys: Reese Andrew M.D ([email or web address]) Technologist: [place] [facility] [place] EVAL FOR [place]G BP: 5 / 5 HR: 60 Rhythm: Sinus Technical Quality: Good MEASUREMENTS (Male / Female) Normal Values Medications Per anesthesia team Complications None Proc. Components After anesthesia team sedated the patient, we proceeded with advancing JASON probe FINDINGS Left Ventricle Left ventricle is severely hypokinetic. Right Ventricle RV is hypokinetic Right Atrium Grossly normal. Pacemaker wire is noted Left Atrium Grossly dilated LA Appendage No thrombus IA Septum In close proximity to mitral valve, there is an echogenic mass attached to the septum/base of mitral valve. It is mobile. It measures 1.3 cm in largest dimension. Mitral Valve Structurally normal mitral valve. Mild mitral regurgitation. Echogenic mass seen attached to the interatrial septum/base of mitral valve. It is mobile. It measures 1.3 cm in largest dimension. Aortic Valve Structurally normal tricuspid aortic valve. Tricuspid Valve Structurally normal. Pulmonic Valve Not well visualized Pericardium Normal Aorta Has mild to moderate plaque CONCLUSIONS LV systolic function is severely reduced. RV is hypokinetic. Left atrium is grossly dilated. Echogenic mass seen attached to the interatrial septum/base of mitral valve. It is mobile. It measures 1.3 cm in largest dimension. Differentials are endocarditis vs myxoma. Less likely thrombus. Mild to moderate aortic plaque Reese Andrew MD (Electronically Signed) Final Date: 10 Mar 2024 17:24 S
--- NOTE | 2024-03-10 09:21 | P.ANESASSM_ITS ---
Pre-Anesthetic Assessment Height/Weight: Height 1.73 m Weight 117.934 kg Temp Pulse Resp BP Pulse Ox O2 Del Method O2 Flow Rate 98.2 F 79 16 134/89 95 Room Air 2 03/10/24 07:12 03/10/24 08:17 03/10/24 08:17 03/10/24 07:12 03/10/24 08:17 03/10/24 08:17 03/08/24 02:30 Operation Date: 03/10/24 10:00 Proposed Procedures p JASON(Not Applicable) - Reese Andrew M.D Was Beta Radha taken within 24 hours: Yes Last intake: Intake Last Liquid Date 03/09/24 Last Liquid Time 23:30 Last Solid Date 03/09/24 Last Solid Time 17:00 Social No alcohol and No tobacco Exam alert, oriented x 3, clear to auscultation bilaterally and regular rate & rhythm Airway Submandibular: within normal limits Cervical ROM: Other (limited) Mallampati: Class III Pulmonary Chronic Obstructive Pulmonary Disease, Exertional Dyspnea, Paroxysmal Nocturnal Dyspnea and Shortness of Breath CV/HEM Congestive Heart Failure and Hypertension Pacemaker/Defibrillator Metabolic Diabetes Mellitus Gout Anesthetic Plan ASA status: 4E Anesthesia: MAC Medications/Allergies Home Medications Medication Instructions Recorded Confirmed Last Taken Type blood-glucose meter (Blood Glucose #1 ea 07/06/20 03/10/24 Unknown Rx Monitoring kit) albuterol sulfate 90 mcg/actuation 2 puff inhalation Q6H PRN 05/20/22 03/10/24 04/06/23 Rx aerosol inhaler (ProAir HFA) shortness of breath or wheezing #18 grams nebulizer machine with tubing and #1 ea 09/09/22 03/10/24 Unknown Rx mask blood sugar diagnostic (Blood #100 ea 12/05/22 03/10/24 Unknown Rx Glucose Test strips) lancets 33 gauge (BD Ultra Fine #100 ea 12/05/22 03/10/24 Unknown Rx Lancets) [id number] acid-vit 1 tab PO DAILY 04/07/23 03/10/24 11/17/23 History K-lycop 400 mcg-20 mcg-370 mcg tablet (Men's 50 Plus Multivitamin) albuterol sulfate 2.5 mg/3 mL 2.5 mg (3 mL) inhalation QID PRN 06/10/23 03/10/24 Unknown Rx (0.083 %) solution for nebulization shortness of breath or wheezing #180 mL fluticasone propionate 50 2 spray intranasal DAILY PRN 08/17/23 03/10/24 Unknown History mcg/actuation nasal Allergy Symptoms spray,suspension (Flonase Allergy Relief) clopidogrel 75 mg tablet 75 mg PO DAILY #30 tabs 11/20/23 03/10/24 Unknown Rx sacubitril 97 mg-valsartan 103 mg 1 tab PO BID 11/21/23 03/10/24 Unknown History tablet (Entresto) omega 8-kyr-wfz-fish oil 300 1 cap PO DAILY #90 caps 12/08/23 03/10/24 Unknown Rx mg-1,000 mg capsule (Fish Oil) allopurinol 300 mg tablet 300 mg PO QAM #90 tabs 01/19/24 03/10/24 Unknown Rx carvedilol 25 mg tablet 25 mg PO BID 90 days #180 tabs 01/19/24 03/10/24 Unknown Rx promethazine 25 mg tablet 25 mg PO Q6H PRN nausea and 02/18/24 03/10/24 Unknown Rx vomiting #20 tabs dapagliflozin propanediol 10 mg 10 mg PO DAILY 02/27/24 03/10/24 Unknown History tablet (Farxiga) ibuprofen 800 mg tablet 800 mg PO Q8H PRN Pain or Fever 02/27/24 03/10/24 Unknown History insulin glargine 100 unit/mL (3 25 unit SUBCUT BEDTIME 02/27/24 03/10/24 Unknown History mL) subcutaneous pen (Lantus Solostar U-100 Insulin) ondansetron HCl 8 mg tablet 8 mg PO TID PRN Nausea And Vomiting 02/27/24 03/10/24 Unknown History rosuvastatin 40 mg tablet 40 mg PO BEDTIME 02/27/24 03/10/24 Unknown History aspirin 81 mg tablet,delayed 81 mg PO DAILY 03/08/24 03/10/24 Unknown History release furosemide 20 mg tablet (Lasix) 20 mg PO DAILY 03/08/24 03/10/24 Unknown History levocetirizine 5 mg tablet (Xyzal) 5 mg PO DAILY PRN allergies 03/08/24 03/10/24 Unknown History magnesium L-lactate 84 mg 84 mg PO DAILY 03/08/24 03/10/24 Unknown History tablet,extended release pantoprazole 40 mg tablet,delayed 40 mg PO BID 03/08/24 03/10/24 Unknown History release (Protonix) potassium citrate 10 mEq (1,080 20 meq PO BID 03/08/24 03/10/24 Unknown History mg) tablet,extended release sertraline 100 mg tablet 100 mg PO QAM 03/08/24 03/10/24 Unknown History Allergies Allergy/AdvReac Type Severity Reaction Status Date / Time isosorbide Allergy unknown Verified 03/08/24 08:05 Penicillins AdvReac rash Verified 03/08/24 08:05 Current Medications Generic Name Dose Route Start Last Admin Trade Name Freq PRN Reason Stop Dose Admin Acetaminophen 500 mg 03/08/24 06:36 03/09/24 20:25 Acetaminophen 500 Mg Tablet PO 500 mg Q4H PRN Administration fever Albuterol/Ipratropium 3 ml 03/08/24 06:36 03/08/24 07:51 Ipratropium-Albuterol 3 Ml Neb INHALATION 3 ml Q6H PRN Administration SHORTNESS OF BREATH Apixaban 5 mg 03/08/24 09:00 03/10/24 08:12 Apixaban 5 Mg Tablet PO 5 mg BID@0900,2100 JOSHUA Administration Ceftriaxone Sodium 2,000 mg/ 50 mls @ 100 mls/hr 03/10/24 09:00 03/10/24 09:08 Sodium Chloride IV Infused DAILY JOSHUA Infusion Protocol Vancomycin/PEG/NADA/Lysine/Water 2,000 mg in 400 mls @ 200 mls/hr 03/09/24 12:00 03/10/24 03:05 Vancocin IV Infused Q12H JOSHUA Infusion Insulin Glargine 30 unit 03/08/24 21:00 03/09/24 20:26 Insulin Glargine 100 Units/1 Ml SUBCUT 30 unit BEDTIME JOSHUA Administration Insulin Human Lispro 0 unit 03/08/24 08:00 03/10/24 08:28 Insulin Lispro 100 Unit/1 Ml SUBCUT 3 unit TIDWM JOSHUA Administration Protocol Morphine Sulfate 2 mg 03/08/24 06:39 03/10/24 08:11 Morphine 4 Mg/Ml Sdv 1 Ml IVP 2 mg Q4H PRN Administration SEVERE PAIN Senna/Docusate Sodium 2 tab 03/09/24 18:00 03/10/24 08:12 Sennosides-Docusate Tablet PO 2 tab BID JOSHUA Administration PFSH Anesthesia Medical History COPD (chronic obstructive pulmonary disease) Major depressive disorder, recurrent episode, mild degree Major depressive disorder in partial remission Allergic rhinitis Bipolar II disorder Diabetes Non-ST elevation NC (NSTEMI) Uses bilevel positive airway pressure (BPAP) ventilation at home 12/8cm Dysarthria Unstable angina Nonischemic congestive cardiomyopathy Chronic low back pain Elevated blood uric acid level History of sleep study 2017 at [facility]: Optimal pressure settings with BiPAP found to be 12/8 cm COVID-19 Wound infection following procedure infection with defibrillator lead revision, removed , scarring left subclavian area from this Cardiac resynchronization therapy defibrillator ([employer]) in place [employer] Dr. [place], 07/11/2020 GERD (gastroesophageal reflux disease) ALBERTO (obstructive sleep apnea) C. difficile diarrhea Cataracts, bilateral CHF (congestive heart failure) Urolithiasis Multi stone former, calcium oxalate mono and dihydrate. Also calcium phosphate. Multiple interventions including endoscopy with laser lithotripsy and ESWL. Metabolic treatment with potassium citrate Hemorrhoids Psychiatric care Right ureteral calculus Osteoarthritis of hands, bilateral Cardiomyopathy Mixed hyperlipidemia Pacemaker Hypertension Surgical History S/P epidural steroid injection Status post hemorrhoidectomy Hx of umbilical hernia repair Hx of lithotripsy History of urethral stent H/O esophagogastroduodenoscopy (02/27/21) gastritis, duodenitis History of colonoscopy (02/27/21) descending colon polyp, hemorrhoids History of carpal tunnel release of both wrists History of permanent cardiac pacemaker placement Hx of cataract surgery Hx of shoulder surgery Family History Grandfather CAD (coronary artery disease) Brother Cancer colon cancer Diabetes Mother Diabetes Father No problems noted. Other Hypertension Rheumatoid arthritis Social History Smoking and tobacco/nicotine status: current every day tobacco/nicotine user cigarettes [ Other cigarette details: quit smoking cigarettes ] and smokeless tobacco Smokeless tobacco user: chewing tobacco Smokeless tobacco details: 01/11 can day Second hand smoke exposure: No Alcohol intake: former Year of sobriety/quit date alcohol: 1997 Substance/Drug Use: former Date of last use: 1997 Caregiver/support person: Yes Lives independently: Yes Household members: spouse Marital status: service: No Current occupational status: disabled Current gender identity: Male Special fernando needs: No Agree to transfusion: Yes Data Anesthesia 03/10/24 05:16 03/10/24 05:16 Short CBC 03/08/24 03/09/24 03/10/24 Range/Units 10:55 05:00 05:16 WBC 16.50 H 19.16 H 18.85 H (3.29-11.43) 10^3/uL Hgb 16.90 15.20 14.20 (11.27-16.99) g/dL Hct 50.4 44.8 42.1 (37-53) % MCV 91.5 90.1 90.3 (82-101) fl Plt Count 269 240 209 (157-399) 10^3/cmm Neut % (Auto) 90.4 91.6 92.0 % Neut # (Auto) 14.91 H 17.55 H 17.34 H (1.8-7.7) 10^3/uL BMP 03/08/24 03/09/24 03/10/24 10:55 05:00 05:16 Sodium 132 L 128 L 130 L Potassium 4.3 3.9 3.5 Chloride 100 96 L 97 L Carbon Dioxide 18 L 21 L 20 L BUN 20 18 14 Creatinine 0.8 0.6 L 0.6 L Glucose 394 H 239 H 224 H Calcium 9.1 9.1 9.0 Liver Function 03/08/24 Range/Units 10:55 Total Bilirubin 1.0 (0.15-1.2) mg/dL AST 22 (0-40) U/L ALT 38 (0-41) U/L Alkaline Phosphatase 155 H (40-130) U/L Albumin 2.8 L (3.5-5.2) g/dL Coags 03/09/24 05:00 C-Reactive Protein 345.5 H Microbiology 03/10/24 05:18 Blood Culture - Preliminary Blood SPECIMEN COLLECTED 03/10/24 05:16 Blood Culture - Preliminary Blood SPECIMEN COLLECTED 03/08/24 14:02 Blood Culture - Preliminary Blood NEGATIVE TO DATE 03/08/24 14:40 Blood Culture - Preliminary Blood NEGATIVE TO DATE Cardiac Studies: 2 Echocardiogram 11/19/23 Echocardiogram Ultrasound 03/08/24 Sestamibi Stress Test (Cardiology) 06/20
[2024-03-10] MEDS: sodium chloride 0.9% 1,000 ML 30 ML IV (09:31)
--- NOTE | 2024-03-10 09:54 | W.PM.OPSUD ---
Surgery/Procedure H&P Update DATE OF PROCEDURE: March 10, 2024 DATE H&P PERFORMED: 03/09/24 H&P UPDATE INFORMATION: I have reviewed H&P completed within last 30 days, I have examined patient prior to procedure and No changes to prior documentation PREOP DIAGNOSIS: Possible endocarditis PRIMARY INDICATION FOR PROCEDURE: Possible endocarditis PLANNED PROCEDURE: Operation Date: 03/10/24 10:00 Proposed Procedures p JASON(Not Applicable) - Reese Andrew M.D Anesthesia team available for sedation
[2024-03-10 10:58] LABS: ABG PCO2 33.6 mmHg (35-45); ABG PH Result 7.44 (7.35-7.45); Alveolar-Arterial Oxygen Gradi 5.2 mmHg (5-10); Arterial Blood Gas Hematocrit 43.1 % (42-52); Base Excess ABG -0.6 mmol/L (-2.0-2.0); Blood Gas Allen Test Pos; Blood Gas Operator Identificat WALCI; Blood Gas Sample Site Radial, right; Blood Gas Sample Type Arterial; Carboxyhemoglobin 1.6 %THgb (0.4-20.1); HCO3 ABG 22.9 mmol/L (22-26); HGB O2 Sat 93.9 % (95-100); Ionized Calcium Level - ABG 1.2 mmol/L (1.1-1.4); Methemoglobin 0.2 % (0.4-1.5); Oxygen Device ROOM AIR; Oxygen Saturation ABG 95.6; PO2 ABG 67.6 mmHg (80.0-100.0); PO2 FiO2 Ratio Arterial Blood 0; Potassium Level - ABG 3.4 mmol/L (3.5-5.0); Total Hemoglobin 14.1 g/dL (14-18)
--- NOTE | 2024-03-10 11:08 | PC.OT ---
PATIENT UNABLE TO BE SEEN TODAY BY OT FOR TREATMENT DUE TO PROCEDURE. WILL ATTEMPT AGAIN TOMORROW.
[2024-03-10 11:25] LABS: Glucose Point of Care 271 mg/dL (70-110)
--- NOTE | 2024-03-10 11:50 | P.PN_ITS ---
Subjective 2 Subjective: 63 male who present to the hospital for left upper quadrant pain, he was diagnosed with splenic infarct, please note he was diagnosed with acute atherosclerotic/ischemic CVA 1 week ago at [facility], as per the considering low EF he went for coronary angiogram which was unremarkable no stent was placed, he carries history of systolic CHF with EF 20%, nonischemic cardiomyopathy status post AICD/pacemaker. On this visit there was concern for endocarditis he was put on ceftriaxone and vancomycin, he remained afebrile, however leukocytosis worsened up to 19,000, with addition of antibiotics it is trending down, he remained afebrile, did not complain of any active chest pain, blood culture showing preliminary gram-positive cocci in clusters, echo transthoracic showed possible vegetation, cardiology was consulted for transesophageal echo which showed septal mass versus endocarditis, patient will need surgical evaluation at tertiary center, he will go to [facility] for surgical evaluation, his EF has reduced down to 10%. He discharged active signs of hypervolemia with clinical signs of acute CHF exacerbation. He has mild right-sided weakness from recent stroke. Patient is diabetic as well requires cardiac consistent carb diet. He is CPAP at nighttime for sleep apnea. Hemoglobin 14, pH 7.4 pCO2 33 pO2 67 on room air sodium 130 creatinine 0.6 hemoglobin A1c around 9 Vitals/I&O/Wt Last Vital Signs Temp 97.3 F L 03/10/24 10:12 Pulse 98 03/10/24 10:42 Resp 16 03/10/24 10:42 BP 133/90 03/10/24 10:42 Pulse Ox 94 03/10/24 10:42 O2 Del Method Room Air 03/10/24 10:42 O2 Flow Rate 10 03/10/24 10:22 03/09/24 03/10/24 03/10/24 22:59 06:59 14:59 Intake Total 236 / 2141.00 400 / 2541.00 200 / 200 Output Total 300 / 300 150 / 150 Balance 236 / 2141.00 100 / 2241.00 50 / 50 Weight last 48 hrs Weight 117.934 kg Weight 117.934 kg Physical Exam 2 Narrative: Sign of fluid overload GCS 15 Nonfocal neuroexam Currently on CPAP Awake and alert pleasant cooperative Fatigued and lethargic S1, S2 paced rhythm Abdomen distended left upper quadrant tenderness Data 03/10/24 05:16 03/10/24 05:16 Micro: Microbiology 03/10/24 05:18 Blood Culture - Preliminary Blood SPECIMEN COLLECTED 03/10/24 05:16 Blood Culture - Preliminary Blood SPECIMEN COLLECTED 03/08/24 14:02 Blood Culture - Preliminary Blood NEGATIVE TO DATE 03/08/24 14:40 Blood Culture - Preliminary Blood NEGATIVE TO DATE A&P Assessment and plan (1) Bipolar II disorder: (2) Endocarditis: (3) PVCs (premature ventricular contractions): (4) Diabetes: Qualifiers: Diabetes mellitus type: type 2 Diabetes mellitus middle or intermediate school principal insulin use: without middle or intermediate school principal use Diabetes mellitus complication status: with hyperglycemia Qualified Code(s): E11.65 - Type 2 diabetes mellitus with hyperglycemia (5) Type 2 diabetes mellitus: Qualifiers: Diabetes mellitus complication status: with other specified complication Diabetes mellitus middle or intermediate school principal insulin use: without middle or intermediate school principal use Qualified Code(s): E11.69 - Type 2 diabetes mellitus with other specified complication (6) Gastroparesis: (7) Infarction of spleen: (8) ALBERTO (obstructive sleep apnea): (9) COPD (chronic obstructive pulmonary disease): Plan Patient will need to be transferred to tertiary care for surgical evaluation for low EF EF 10%, septal mass versus vegetation, endocarditis with hardware in his heart however vegetation seems to be on the left side which most likely goes with endocarditis, he is currently on vancomycin and ceftriaxone prelim report showing gram-positive cocci which would explain thromboembolic phenomenon of recent stroke splenic infarct. He is already anticoagulated Clinically he is fluid overloaded with hyponatremia which carries a guarded prognosis He is full code Currently on cardia consistent carb diet Family meeting conducted, spoke with the field service technician, Attestations 2 Medical Necessity Statement*: Patient is to be transferred Diagnoses Bipolar II disorder F31.81 Endocarditis I38 PVCs (premature ventricular contractions) I49.3 Type 2 diabetes mellitus with hyperglycemia, without long-term current use of insulin E11.65 Diabetes mellitus type: type 2 Diabetes mellitus usp insulin use: without usp use Diabetes mellitus complication status: with hyperglycemia Type 2 diabetes mellitus E11.69 Diabetes mellitus complication status: with other specified complication Diabetes mellitus usp insulin use: without usp use Gastroparesis K31.84 Infarction of spleen D73.5 ALBERTO (obstructive sleep apnea) G47.33 Chronic obstructive pulmonary disease, unspecified COPD type J44.9
[2024-03-10] MEDS: FUROsemide 10 mg/mL SDV 2mL 20 MG IVP (13:44)
[2024-03-10] MEDS: potassium chloride ER 20 mEq Tablet 40 MEQ PO ×2 (13:45→20:58)
[2024-03-10 16:18] LABS: Glucose Point of Care 252 mg/dL (70-110)
--- NOTE | 2024-03-10 17:19 | USCV_ITS ---
Amrik Alexander Age: 63 Gender: M : 1960 Exam Date: 03/10/2024 19:02 Ordering Phys: Reese Andrew M.D ([email or web address]) Technologist: NABIL [place] [facility] [place] Indication: Rule out LV thrombus using OPTISON contrast. BP: 144 / 84 HR: 91 Rhythm: Paced Technical Quality: Adequate MEASUREMENTS (Male / Female) Normal Values 2D ECHO LV Ejection Fraction MOD 2C 25.9 % LV Ejection Fraction 2C AL 25.4 % FINDINGS Left Ventricle Right Ventricle Right Atrium Left Atrium Mitral Valve Aortic Valve Tricuspid Valve Pulmonic Valve Pericardium Aorta IVC CONCLUSIONS Even with contrast use, visualization of apex is limited and can not rule out LV thrombus completely. No definite evidence of thrombus LV systolic uis severely reduced with EF of 10-15%. Given patient's presentation will recommend alternative method of ruling out thrombus (Cardiac CT/MR) and continue anticoagulation Reese Andrew MD (Electronically Signed) Final Date: 11 Mar 2024 07:09 S
--- NOTE | 2024-03-10 19:22 | ECG_ITS ---
[facility] Test Date: 2024-03-10 Pat Name: Amrik Alexander Department: Room: 259 Gender: Male Teaching Manager: : 1960 Requested By: Norbert Cm Order Number: [id number] Haja MD: Joe Holder M.D. Measurements Intervals [place] Rate: 117 P: 0 TX: 0 QRS: 160 QRSD: 160 T: -60 QT: 349 QTc: 488 Interpretive Statements ELECTRONIC VENTRICULAR PACEMAKER ABNORMAL RHYTHM ECG Compared to ECG 02/27/2024 10:04:46 Atrial-paced complex(es) or rhythm no longer present ST (T wave) deviation no longer present Myocardial infarct finding no longer present Electronically Signed On 03-11-2024 22:56:32 CDT by Joe Holder M.D. [id number]
--- NOTE | 2024-03-10 19:45 | P.PNCC_ITS ---
Critical Care Event Note See patient secondary to sustained ventricular tachycardia for which his defibrillator shocked him. He is alert, oriented with stable vital signs currently. He is still having quite a bit of ectopy. I will do a stat BMP and magnesium. He denies any chest discomfort currently. I will give him an aspirin, as he has a history of coronary disease and initiate this daily. I will initiate amiodarone with a bolus as well as a maintenance drip and move into the ICU. I discussed this with his structural steel erector, who is seen him earlier today. I also examined him. I found his heart rate to be regular with frequent premature beats. 2/6 systolic murmur. Lungs with diminished breath sounds bilaterally. Extremities with trace to 1+ edema bilaterally. Continue to follow closely in the ICU. The high probability of a clinically significant, sudden or life threatening deterioration of the patient's [cardiac] system(s) required my full and direct attention, intervention and personal management. The critical care time is as shown. This time is in addition to time spent performing any reported procedures but includes the following: [x] Data and vital sign review and interpretation [x] Patient assessment, examination and intervention [x] Documentation [x] Medication orders and management Critical Care Time Code activated: No Critical Care Time (min): 34 Coding Level of Care Code Acute Code for Chg Fwd
[2024-03-10] MEDS: amiodarone 150 MG/100 ML PREMIX 400 MG IV (19:57)
[2024-03-10] MEDS: aspirin 81 mg EC Tablet PO (20:11)
[2024-03-10 20:14] LABS: Anion Gap 14.5 (5-19); Blood Urea Nitrogen 14 mg/dL (8-23); Calcium 8.4 mg/dL (8.5-10.5); Carbon Dioxide 22 mmol/L (22-29); Chloride 96 mmol/L (98-107); Creatinine Clr Calc Pharmacy 157.2326; Glomerular Filtration Rate 136.1 mL/min (90-130); Glucose 280 mg/dL (65-115); Magnesium 1.4 mg/dL (1.7-2.3); Osmolality Calculated 279 mOsm/kg (285-295); Potassium 3.5 mmol/L (3.5-5.1); Sodium 129 mmol/L (136-145)
[2024-03-10 20:42] LABS: Glucose Point of Care 222 mg/dL (70-110)
[2024-03-10] MEDS: insulin glargine 100 units/1 mL 30 UNIT SUBCUT (20:59)
[2024-03-10] MEDS: magnesium sulfate premix 2 GM/50 ML PIGGYBACK IV (20:59)
[2024-03-10] MEDS: HYDROmorphone 1 mg/mL INJ 1 mL 0.400000000000000022 MG IVP (21:56)
[2024-03-10] MEDS: FUROsemide 10 mg/mL SDV 4mL 40 MG IVP (23:18)
[2024-03-11] VITALS (42 sets, daily range): BP systolic 96–149; BP diastolic 47–102; PULSE 87–118; RESP 6–41; TEMP 36.1–36.6; O2SAT 92–96; BMI 39.5
[2024-03-11 00:20] LABS: Vancomycin Trough 13.9 ug/mL (10-15)
--- NOTE | 2024-03-11 00:55 | PC.NURSE ---
1954: Patient arrived from the [facility], Patient was having uncontrolled heart rhythm and amiodarone drip was started. Dr. Renee came in to see the patient and put in orders for electrolyte replacements. Patient was settled in to the room. Patient's defibrillator went off due to an onset of V-fib once after they arrived.
[2024-03-11] MEDS: ipratropium-albuterol 3 mL Neb INHALATION (01:04)
[2024-03-11] MEDS: morphine 4 mg/mL SDV 1 mL 2 MG IVP (01:18)
[2024-03-11 05:01] LABS: Basophils % 0.2 %; Eosinophils % 0.1 %; Hematocrit 44.6 % (37-53); Lymphocytes # 1.3 10^3/uL (0.8-4.8); Lymphocytes % 6.1 %; Mean Corpuscular HGB Conc 33.9 g/dL (30-55); Mean Corpuscular Hemoglobin 30.1 pg (27-33); Mean Platelet Volume 11.6 fL (7.4-10.4); Monocytes # 0.8 10^3/uL (0.2-0.9); Neutrophils # 18.24 10^3/uL (1.8-7.7); Neutrophils % 88.7 %; Nucleated Red Blood Cells % 0 %; Platelet Count 251 10^3/cmm (157-399); Red Blood Count 5.01 10^6/uL (3.85-5.65); Red Cell Distribution Width 13.8 % (12.1-15.1); White Blood Count 20.56 10^3/uL (3.29-11.43)
[2024-03-11 05:30] LABS: Anion Gap 16.5 (5-19); Blood Urea Nitrogen 14 mg/dL (8-23); C Reactive Protein 298.8 mg/L (0.0-4.9); Calcium 8.9 mg/dL (8.5-10.5); Carbon Dioxide 22 mmol/L (22-29); Chloride 93 mmol/L (98-107); Creatinine Clr Calc Pharmacy 117.9244; Glomerular Filtration Rate 97.6 mL/min (90-130); Glucose 300 mg/dL (65-115); Lactate Dehydrogenase 957 U/L (135-225); Osmolality Calculated 278 mOsm/kg (285-295); Potassium 3.5 mmol/L (3.5-5.1); Sodium 128 mmol/L (136-145)
[2024-03-11] MEDS: perflutren protein-a microsphr 0.22 mg/mL SDV 3 mL IV (06:17)
--- NOTE | 2024-03-11 06:51 | P.PN_ITS ---
Subjective 2 Subjective: Patient had run of VT last night and was shocked by his ICD. He is hemodynamically stable. Denies chest pain. Started on amiodarone Vitals/I&O/Wt Last Vital Signs Temp 97.0 F L 03/11/24 05:00 Pulse 92 03/11/24 05:37 Resp 19 H 03/11/24 05:00 BP 143/76 03/11/24 05:00 Pulse Ox 93 03/11/24 05:00 O2 Del Method Room Air 03/11/24 05:00 O2 Flow Rate 10 03/10/24 10:22 03/10/24 03/10/24 03/11/24 14:59 22:59 06:59 Intake Total 840 / 840 1230 / 2070 Output Total 350 / 350 400 / 750 900 / 1650 Balance 490 / 490 -400 / 90 330 / 420 Weight last 48 hrs Weight 260 lb Weight 260 lb Physical Exam 2 Narrative: GENERAL: Patient is alert, awake and oriented x3. [] NECK: No jugular vein distension. [] HEENT: No cyanosis. No icterus. No pallor. [] HEART: Regular S1 and S2. No murmur, rub or gallop. [] LUNGS: Clear to auscultate bilaterally. [] EXTREMITIES: Lower extremities with 1+ edema bilaterally. Data 03/11/24 04:25 03/11/24 04:25 Micro: Microbiology 03/10/24 05:18 Blood Culture - Preliminary Blood NEGATIVE TO DATE 03/10/24 05:16 Blood Culture - Preliminary Blood NEGATIVE TO DATE 03/08/24 14:02 Blood Culture - Preliminary Blood A&P Assessment and plan (1) CVA (cerebral vascular accident): (2) Nausea & vomiting: Qualifiers: Vomiting type: unspecified Qualified Code(s): R11.2 - Nausea with vomiting, unspecified (3) Infarction of spleen: Plan Patient's transesophageal echocardiogram showing left atrial mass measuring 1.3 cm in maximum dimension. Differentials are infective endocarditis versus myxoma. His white cell count is elevated. Also has preliminary report per primary team showing good cultures positive for cocci. He needs CT surgical evaluation as has been having embolic phenomenon and has mobile left atrial mass. Patient has been accepted at [facility], awaiting transfer. Dr Arrington, CT surgeon aware. (Appears arising from interatrial septum with very close proximity to the base of mitral valve. Continue antibiotics. Continue anticoagulation for now. Given his limited echocardiogram with contrast, LV thrombus cannot be ruled out as very limited echo windows. We will continue with anticoagulation Thank you for involving us with care of this patient. We will continue to follow. Please call with questions. Attestations 2 Medical Necessity Statement*: Care expected to cross 2 midnights. Coding Level of Care Code Acute Code for [facility] Fwd Diagnoses CVA (cerebral vascular accident) I63.9 Nausea and vomiting, unspecified vomiting type R11.2 Vomiting type: unspecified Infarction of spleen D73.5
[2024-03-11] MEDS: insulin lispro 100 unit/1 mL SUBCUT ×3 (08:59→18:24)
[2024-03-11] MEDS: aspirin 81 mg EC Tablet PO (09:00)
[2024-03-11] MEDS: sennosides-docusate Tablet 2 TAB PO (09:00)
[2024-03-11] MEDS: apixaban 5 mg Tablet PO (09:00)
[2024-03-11] MEDS: potassium chloride ER 20 mEq Tablet 40 MEQ PO (09:01)
[2024-03-11] MEDS: cefTRIAXone 2,000 MG in sodium chloride 0.9% (plus) 50 ML 100 MG IV (09:01)
--- NOTE | 2024-03-11 09:27 | PC.OT ---
OT TREATMENT HELD THIS DATE DUE TO TRANSFER TO ICU AND AWAITING PATIENT TRANSFER TO [facility].
--- NOTE | 2024-03-11 09:42 | P.PN_ITS ---
Subjective 2 Subjective: Overnight patient developed nonsustained V. tach he was shocked by his defibrillator He was put on amiodarone Potassium 3.5, magnesium 1.4 He was given IV magnesium and potassium No active chest pain or shortness of breath Currently sitting in recliner Hemodynamically stable Paced rhythm Vitals/I&O/Wt Last Vital Signs Temp 97.0 F L 03/11/24 05:00 Pulse 92 03/11/24 09:34 Resp 16 03/11/24 09:34 BP 143/76 03/11/24 05:00 Pulse Ox 95 03/11/24 09:34 O2 Del Method Room Air 03/11/24 05:00 O2 Flow Rate 10 03/10/24 10:22 03/10/24 03/11/24 03/11/24 22:59 06:59 14:59 Intake Total 1230 / 2070 Output Total 400 / 750 900 / 1650 Balance -400 / 90 330 / 420 Weight last 48 hrs Weight 117.934 kg Weight 117.934 kg Physical Exam 2 Narrative: Patient is active sign of fluid overload Lower extremity edema present Nonfocal neuroexam Currently on room air Hemodynamically stable Rhythm evaluated on telemetry as well Variable S1-S2 Abdomen distended Left upper quadrant discomfort related to splenic infarct Nonfocal neuroexam Currently on room air Data 03/11/24 04:25 03/11/24 04:25 Micro: Microbiology 03/10/24 05:18 Blood Culture - Preliminary Blood NEGATIVE TO DATE 03/10/24 05:16 Blood Culture - Preliminary Blood NEGATIVE TO DATE 03/08/24 14:02 Blood Culture - Preliminary Blood A&P Assessment and plan (1) Bipolar II disorder: (2) Endocarditis: (3) PVCs (premature ventricular contractions): (4) Diabetes: Qualifiers: Diabetes mellitus type: type 2 Diabetes mellitus intermodal dispatcher insulin use: without intermodal dispatcher use Diabetes mellitus complication status: with hyperglycemia Qualified Code(s): E11.65 - Type 2 diabetes mellitus with hyperglycemia (5) Gastroparesis: (6) Hypomagnesemia: (7) Infarction of spleen: (8) ALBERTO (obstructive sleep apnea): Plan Infective endocarditis Continue antibiotics vancomycin and ceftriaxone Afebrile Patient awaiting transfer to [facility] for surgical evaluation trans-esophageal echo report reviewed Nonsustained V. tach Status post discharge by AICD Keep magnesium above 2 and potassium above 4 Replenished magnesium and potassium to IV today Continue amiodarone Recheck magnesium today Preliminary report of blood culture showing gram-positive cocci, no fever Full code Cardiac diet Awaiting transfer to [facility] Dr. Dwayne Arrington has accepted the patient, Keep him in CSU on amiodarone drip Attestations 2 Medical Necessity Statement*: Continue medical management Diagnoses Bipolar II disorder F31.81 Endocarditis I38 PVCs (premature ventricular contractions) I49.3 Type 2 diabetes mellitus with hyperglycemia, without long-term current use of insulin E11.65 Diabetes mellitus type: type 2 Diabetes mellitus jail insulin use: without jail use Diabetes mellitus complication status: with hyperglycemia Gastroparesis K31.84 Hypomagnesemia E83.42 Infarction of spleen D73.5 ALBERTO (obstructive sleep apnea) G47.33
[2024-03-11 10:34] LABS: Magnesium 1.6 mg/dL (1.7-2.3)
[2024-03-11] MEDS: lidocaine 1% 5 ML in potassium chloride premix 100 ML 25 ML IV (10:41)
[2024-03-11 11:22] LABS: Glucose Point of Care 237 mg/dL (70-110)
[2024-03-11] MEDS: FUROsemide 10 mg/mL SDV 2mL 20 MG IVP (11:47)
[2024-03-11] MEDS: vancomycin 2,000 MG/400 ML PIGGYBACK 200 MG IV (11:48)
--- NOTE | 2024-03-11 16:44 | PC.OT ---
OT DISCHARGED DUE TO PATIENT STATUS REGARDING HIS HEART AND UPCOMING TRANSFER TO [facility]
[2024-03-11 17:59] LABS: Glucose Point of Care 279 mg/dL (70-110)
[2024-03-11] MEDS: magnesium sulfate premix 1 GM/100 ML PIGGYBACK IV (18:23)
[2024-03-11 20:24] LABS: Blood Urea Nitrogen 15 mg/dL (8-23); Calcium 8.3 mg/dL (8.5-10.5); Carbon Dioxide 18 mmol/L (22-29); Chloride 92 mmol/L (98-107); Creatinine Clr Calc Pharmacy 157.2326; Glomerular Filtration Rate 136.1 mL/min (90-130); Glucose 376 mg/dL (65-115); Osmolality Calculated 272 mOsm/kg (285-295); Sodium 123 mmol/L (136-145)
[2024-03-11 20:28] LABS: Anion Gap 16.6 (5-19); Potassium 3.6 mmol/L (3.5-5.1)
[2024-03-11 21:21] LABS: Glucose Point of Care 284 mg/dL (70-110)
[2024-03-11] MEDS: amiodarone 200 mg Tablet 400 MG PO (21:39)
[2024-03-11] MEDS: insulin glargine 100 units/1 mL 30 UNIT SUBCUT (21:45)
[2024-03-11] MEDS: oxyCODONE 5 mg IR Tab/Cap PO (21:45)
[2024-03-12] VITALS (13 sets, daily range): BP systolic 122–154; BP diastolic 83–100; PULSE 62–104; RESP 18–31; TEMP 36.2–36.8; O2SAT 93–94
[2024-03-12] MEDS: vancomycin 1,500 MG/300 ML PIGGYBACK 200 MG IV ×2 (01:17→12:24)
[2024-03-12] MEDS: morphine 4 mg/mL SDV 1 mL 2 MG IVP ×2 (02:21→20:36)
--- NOTE | 2024-03-12 04:27 | PC.NURSE ---
Patient was amio gtt was [address] hour at 20:00. Dr Renee was contacted and ordered amio 400 mg BID and to stop amio gtt.
[2024-03-12 04:51] LABS: Basophils % 0.2 %; Eosinophils # 0.1 10^3/uL (0.0-0.8); Eosinophils % 0.2 %; Hematocrit 44.1 % (37-53); Lymphocytes # 1.4 10^3/uL (0.8-4.8); Lymphocytes % 6.8 %; Mean Corpuscular HGB Conc 35.1 g/dL (30-55); Mean Corpuscular Hemoglobin 30.3 pg (27-33); Mean Corpuscular Volume 86.3 fl (82-101); Monocytes # 1.5 10^3/uL (0.2-0.9); Monocytes % 7.2 %; Neutrophils # 17.56 10^3/uL (1.8-7.7); Neutrophils % 84.4 %; Nucleated Red Blood Cells % 0 %; Platelet Count 258 10^3/cmm (157-399); Red Blood Count 5.11 10^6/uL (3.85-5.65); Red Cell Distribution Width 13.6 % (12.1-15.1)
[2024-03-12 05:12] LABS: Anion Gap 15.7 (5-19); Blood Urea Nitrogen 16 mg/dL (8-23); Calcium 8.8 mg/dL (8.5-10.5); Carbon Dioxide 21 mmol/L (22-29); Chloride 94 mmol/L (98-107); Creatinine Clr Calc Pharmacy 157.2326; Glomerular Filtration Rate 136.1 mL/min (90-130); Glucose 230 mg/dL (65-115); Osmolality Calculated 272 mOsm/kg (285-295); Potassium 3.7 mmol/L (3.5-5.1); Sodium 127 mmol/L (136-145)
[2024-03-12 06:38] LABS: Glucose Point of Care 253 mg/dL (70-110)
--- NOTE | 2024-03-12 07:54 | P.PN_ITS ---
Subjective 2 Subjective: Patient is overall stable. No chest pain Vitals/I&O/Wt Last Vital Signs Temp 97.6 F 03/12/24 07:49 Pulse 95 03/12/24 07:49 Resp 30 H 03/12/24 07:49 BP 122/83 03/12/24 07:49 Pulse Ox 93 03/12/24 07:49 O2 Del Method CPAP 03/12/24 07:49 O2 Flow Rate 10 03/10/24 10:22 03/11/24 03/12/24 03/12/24 22:59 06:59 14:59 Intake Total 874.479 / 1274.479 Output Total 450 / 450 350 / 800 Balance -450 / -50 524.479 / 474.479 Weight last 48 hrs Weight 260 lb Physical Exam 2 Narrative: GENERAL: Patient is alert, awake and oriented x3. [] NECK: No jugular vein distension. [] HEENT: No cyanosis. No icterus. No pallor. [] HEART: Regular S1 and S2. No murmur, rub or gallop. [] LUNGS: Clear to auscultate bilaterally. [] EXTREMITIES: Lower extremities with 1+ edema bilaterally. Data 03/13/24 03:21 03/13/24 03:21 Micro: Microbiology 03/10/24 05:18 Blood Culture - Preliminary Blood NEGATIVE TO DATE 03/10/24 05:16 Blood Culture - Preliminary Blood NEGATIVE TO DATE A&P Assessment and plan (1) CVA (cerebral vascular accident): (2) Nausea & vomiting: Qualifiers: Vomiting type: unspecified Qualified Code(s): R11.2 - Nausea with vomiting, unspecified (3) Infarction of spleen: Plan Patient's JASON had showed left atrial mass. Differentials are infective endocarditis versus myxoma versus thrombus. Has been accepted for transfer at [facility]. Awaiting bed availability Antibiotic therapy per primary team. Thank you for involving us with care of this patient. We will continue to follow. Please call with questions. Attestations 2 Medical Necessity Statement*: Care expected to cross 2 midnights. Coding Level of Care Code Acute Code for [facility] Fwd Diagnoses CVA (cerebral vascular accident) I63.9 Nausea and vomiting, unspecified vomiting type R11.2 Vomiting type: unspecified Infarction of spleen D73.5
[2024-03-12] MEDS: insulin lispro 100 unit/1 mL SUBCUT ×3 (08:23→17:16)
[2024-03-12] MEDS: potassium chloride ER 20 mEq Tablet 40 MEQ PO (08:26)
[2024-03-12] MEDS: sennosides-docusate Tablet 2 TAB PO ×2 (08:27→17:17)
[2024-03-12] MEDS: amiodarone 200 mg Tablet 400 MG PO ×2 (08:27→17:17)
[2024-03-12] MEDS: cefTRIAXone 2,000 MG in sodium chloride 0.9% (plus) 50 ML 100 MG IV (08:28)
[2024-03-12] MEDS: FUROsemide 10 mg/mL SDV 2mL 20 MG IVP (08:43)
[2024-03-12 10:46] LABS: Glucose Point of Care 297 mg/dL (70-110)
--- NOTE | 2024-03-12 11:06 | PC.NURSE ---
update provided to [facility] they willl call us for a bed assignment.
--- NOTE | 2024-03-12 11:15 | P.PN_ITS ---
Subjective 2 Subjective: Patient is hemodynamic stable Complaining of left lower quadrant pain however he is tolerating I have asked nurse not to administer opiates History reports opiates because of left lower quadrant pain White count 20,000 Afebrile Cultures negative to date Sodium 127 Creatinine 0.6. Vitals/I&O/Wt Last Vital Signs Temp 97.6 F 03/12/24 07:49 Pulse 94 03/12/24 08:28 Resp 18 03/12/24 08:28 BP 122/83 03/12/24 07:49 Pulse Ox 94 03/12/24 08:28 O2 Del Method Room Air 03/12/24 08:28 O2 Flow Rate 10 03/10/24 10:22 03/11/24 03/12/24 03/12/24 22:59 06:59 14:59 Intake Total 874.479 / 1274.479 170 / 170 Output Total 450 / 450 350 / 800 180 / 180 Balance -450 / -50 524.479 / 474.479 -10 / -10 Weight last 48 hrs Weight 117.934 kg Physical Exam 2 Narrative: Patient is awake and alert GCS 15 Drowsy Nonfocal exam Abdomen distended Nontender Pleasant and cooperative Afebrile Hemodynamically stable Data 03/12/24 04:39 03/12/24 04:39 A&P Assessment and plan (1) Bipolar II disorder: (2) Endocarditis: (3) PVCs (premature ventricular contractions): (4) Diabetes: Qualifiers: Diabetes mellitus type: type 2 Diabetes mellitus correction insulin use: without line mechanic use Diabetes mellitus complication status: with hyperglycemia Qualified Code(s): E11.65 - Type 2 diabetes mellitus with hyperglycemia (5) Gastroparesis: (6) Infarction of spleen: Plan Patient is waiting bed at [place] We are continuing ceftriaxone and vancomycin for now Afebrile Cultures negative White count 20,000 Hemoglobin is stable Sodium has dropped 127 Clinically looks fluid overloaded Continue Lasix along potassium for mentation Keep magnesium above 2 and potassium before No more PVCs Full code Consistent carb cardiac diet Attestations 2 Medical Necessity Statement*: Continue medical management Diagnoses Bipolar II disorder F31.81 Endocarditis I38 PVCs (premature ventricular contractions) I49.3 Type 2 diabetes mellitus with hyperglycemia, without long-term current use of insulin E11.65 Diabetes mellitus type: type 2 Diabetes mellitus line mechanic insulin use: without correction use Diabetes mellitus complication status: with hyperglycemia Gastroparesis K31.84 Infarction of spleen D73.5
[2024-03-12 16:38] LABS: Glucose Point of Care 178 mg/dL (70-110)
[2024-03-12] MEDS: magnesium oxide 400 mg tablet PO (17:17)
[2024-03-12 21:14] LABS: Glucose Point of Care 194 mg/dL (70-110)
[2024-03-12] MEDS: insulin glargine 100 units/1 mL 30 UNIT SUBCUT (22:18)
[2024-03-13] VITALS (12 sets, daily range): BP systolic 107–137; BP diastolic 80–96; PULSE 94–104; RESP 20–36; TEMP 36.4–36.5; O2SAT 91–94
[2024-03-13] MEDS: vancomycin 1,500 MG/300 ML PIGGYBACK 200 MG IV ×2 (00:21→12:58)
[2024-03-13 04:26] LABS: Basophils # 0.1 10^3/uL (0.0-0.1); Basophils % 0.4 %; Eosinophils # 0.1 10^3/uL (0.0-0.8); Eosinophils % 0.5 %; Hematocrit 43.1 % (37-53); Lymphocytes # 1.3 10^3/uL (0.8-4.8); Lymphocytes % 6.9 %; Mean Corpuscular HGB Conc 34.1 g/dL (30-55); Mean Corpuscular Hemoglobin 30.4 pg (27-33); Mean Corpuscular Volume 89.2 fl (82-101); Mean Platelet Volume 11.6 fL (7.4-10.4); Monocytes # 1.4 10^3/uL (0.2-0.9); Monocytes % 7.5 %; Neutrophils # 15.87 10^3/uL (1.8-7.7); Neutrophils % 82.6 %; Nucleated Red Blood Cells % 0 %; Platelet Count 250 10^3/cmm (157-399); Red Blood Count 4.83 10^6/uL (3.85-5.65); White Blood Count 19.18 10^3/uL (3.29-11.43)
[2024-03-13 04:51] LABS: Anion Gap 17.4 (5-19); Blood Urea Nitrogen 15 mg/dL (8-23); Calcium 8.6 mg/dL (8.5-10.5); Carbon Dioxide 20 mmol/L (22-29); Chloride 89 mmol/L (98-107); Creatinine Clr Calc Pharmacy 153.5138; Glomerular Filtration Rate 136.1 mL/min (90-130); Glucose 191 mg/dL (65-115); Osmolality Calculated 262 mOsm/kg (285-295); Potassium 3.4 mmol/L (3.5-5.1); Sodium 123 mmol/L (136-145)
[2024-03-13 06:24] LABS: Glucose Point of Care 191 mg/dL (70-110)
--- NOTE | 2024-03-13 06:42 | P.PN_ITS ---
Subjective 2 Subjective: Hyponatremia noted Afebrile Cultures negative White count 19,000 Patient requiring opioids for left upper quadrant pain I have asked nurse to be careful for as needed opioids to avoid overdose because patient gets drowsy easily Vitals/I&O/Wt Last Vital Signs Temp 97.7 F 03/13/24 04:00 Pulse 94 03/13/24 06:00 Resp 32 H 03/13/24 04:00 BP 107/80 03/13/24 04:00 Pulse Ox 93 03/13/24 04:00 O2 Del Method Room Air 03/13/24 04:00 O2 Flow Rate 10 03/10/24 10:22 FiO2 21 03/12/24 22:13 03/12/24 03/12/24 03/13/24 14:59 22:59 06:59 Intake Total 470 / 470 636 / 1106 800 / 1906 Output Total 180 / 180 Balance 290 / 290 636 / 926 800 / 1726 Weight last 48 hrs Weight 112.718 kg Physical Exam 2 Narrative: Morbidly obese male Laying supine Left upper quadrant pain S1, S2 Afebrile Nonfocal neuroexam No sign of thromboembolic phenomenon noticed with pulm lesion or splinter hemorrhage No active vision changes Nonfocal neuroexam Currently on room air Data 03/13/24 03:21 03/13/24 03:21 A&P Assessment and plan (1) Bipolar II disorder: (2) Major depressive disorder in partial remission: (3) Endocarditis: (4) PVCs (premature ventricular contractions): (5) Diabetes: Qualifiers: Diabetes mellitus type: type 2 Diabetes mellitus group home insulin use: without emt intermediate use Diabetes mellitus complication status: with hyperglycemia Qualified Code(s): E11.65 - Type 2 diabetes mellitus with hyperglycemia (6) Type 2 diabetes mellitus: Qualifiers: Diabetes mellitus complication status: with other specified complication Diabetes mellitus emt intermediate insulin use: without emt intermediate use Qualified Code(s): E11.69 - Type 2 diabetes mellitus with other specified complication (7) Gastroparesis: (8) Hypomagnesemia: (9) Infarction of spleen: Plan Infective endocarditis: Afebrile Cultures negative Continue vancomycin and ceftriaxone Awaiting bed placement at [facility] for surgical evaluation Hypervolemic hyponatremia Continue diuresis Avoid salt supplements Left upper quadrant pain related to splenic infarct Judicious use of opioids Continue insulin with sliding scale type 2 diabetes with consistent carb diet Full code Currently on therapeutic anticoagulating agent Attestations 2 Medical Necessity Statement*: Awaiting transfer Diagnoses Bipolar II disorder F31.81 Major depressive disorder in partial remission F32.4 Endocarditis I38 PVCs (premature ventricular contractions) I49.3 Type 2 diabetes mellitus with hyperglycemia, without long-term current use of insulin E11.65 Diabetes mellitus type: type 2 Diabetes mellitus emt intermediate insulin use: without group home use Diabetes mellitus complication status: with hyperglycemia Type 2 diabetes mellitus E11.69 Diabetes mellitus complication status: with other specified complication Diabetes mellitus emt intermediate insulin use: without emt intermediate use Gastroparesis K31.84 Hypomagnesemia E83.42 Infarction of spleen D73.5
[2024-03-13] MEDS: magnesium oxide 400 mg tablet PO ×2 (08:17→18:37)
[2024-03-13] MEDS: sennosides-docusate Tablet 2 TAB PO ×2 (08:18→18:37)
[2024-03-13] MEDS: potassium chloride ER 20 mEq Tablet 40 MEQ PO (08:18)
[2024-03-13] MEDS: insulin lispro 100 unit/1 mL SUBCUT ×3 (08:18→18:37)
[2024-03-13] MEDS: amiodarone 200 mg Tablet 400 MG PO ×2 (08:18→18:37)
[2024-03-13] MEDS: FUROsemide 10 mg/mL SDV 2mL 20 MG IVP (08:18)
[2024-03-13] MEDS: cefTRIAXone 2,000 MG in sodium chloride 0.9% (plus) 50 ML 100 MG IV (08:19)
[2024-03-13] MEDS: oxyCODONE 5 mg IR Tab/Cap PO ×2 (09:07→20:03)
--- NOTE | 2024-03-13 09:39 | P.PN_ITS ---
Subjective 2 Subjective: Patient is stable. Denies chest pain. Has some abdominal discomfort Vitals/I&O/Wt Last Vital Signs Temp 97.6 F 03/13/24 07:05 Pulse 96 03/13/24 07:05 Resp 36 H 03/13/24 09:07 BP 137/89 03/13/24 07:05 Pulse Ox 93 03/13/24 09:07 O2 Del Method Room Air 03/13/24 07:05 O2 Flow Rate 10 03/10/24 10:22 FiO2 21 03/12/24 22:13 03/12/24 03/13/24 03/13/24 22:59 06:59 14:59 Intake Total 636 / 1106 800 / 1906 168 / 168 Balance 636 / 926 800 / 1726 168 / 168 Weight last 48 hrs Weight 248 lb 8 oz Physical Exam 2 Narrative: GENERAL: Patient is alert, awake and oriented x3. [] NECK: No jugular vein distension. [] HEENT: No cyanosis. No icterus. No pallor. [] HEART: Regular S1 and S2. No murmur, rub or gallop. [] LUNGS: Clear to auscultate bilaterally. [] EXTREMITIES: Lower extremities with 1+ edema bilaterally. Data 03/13/24 03:21 03/13/24 03:21 A&P Assessment and plan (1) CVA (cerebral vascular accident): (2) Nausea & vomiting: Qualifiers: Vomiting type: unspecified Qualified Code(s): R11.2 - Nausea with vomiting, unspecified (3) Infarction of spleen: Plan Patient is stable. Awaiting bed availability for transfer to [facility]. Thank you for involving us with care of this patient. We will continue to follow. Please call with questions. Attestations 2 Medical Necessity Statement*: Care expected to cross 2 midnights. Coding Level of Care Code Acute Code for [facility] Fwd Diagnoses CVA (cerebral vascular accident) I63.9 Nausea and vomiting, unspecified vomiting type R11.2 Vomiting type: unspecified Infarction of spleen D73.5
[2024-03-13 11:43] LABS: Glucose Point of Care 245 mg/dL (70-110)
[2024-03-13 16:39] LABS: Glucose Point of Care 186 mg/dL (70-110)
[2024-03-13 20:37] LABS: Glucose Point of Care 233 mg/dL (70-110)
[2024-03-13] MEDS: insulin glargine 100 units/1 mL 30 UNIT SUBCUT (21:03)
[2024-03-14] VITALS (12 sets, daily range): BP systolic 116–158; BP diastolic 65–93; PULSE 61–101; RESP 19–27; TEMP 33.2–36.9; O2SAT 95–98
[2024-03-14] MEDS: vancomycin 1,500 MG/300 ML PIGGYBACK 200 MG IV ×2 (00:26→12:59)
[2024-03-14] MEDS: morphine 4 mg/mL SDV 1 mL 2 MG IVP (00:52)
[2024-03-14 06:27] LABS: Glucose Point of Care 174 mg/dL (70-110)
--- NOTE | 2024-03-14 06:40 | P.PN_ITS ---
Subjective 2 Subjective: Patient is awaiting transfer Complaining of abdominal pain Having a bowel movement on daily basis Hemodynamically stable Vitals/I&O/Wt Last Vital Signs Temp 98.7 F 03/15/24 03:55 Pulse 94 03/15/24 03:55 Resp 26 H 03/15/24 03:55 BP 129/97 03/15/24 03:55 Pulse Ox 95 03/15/24 03:55 O2 Del Method CPAP 03/15/24 03:55 O2 Flow Rate 10 03/10/24 10:22 FiO2 21 03/12/24 22:13 03/14/24 03/15/24 03/15/24 22:59 06:59 14:59 Intake Total 300 / 1130 Output Total 465 / 465 0 / 465 200 / 200 Balance -465 / 365 300 / 665 -200 / -200 Physical Exam 2 Narrative: Pleasant cooperative Distended abdomen Left lower quadrant pain slightly better Nonfocal neuroexam GCS 15 No sign of stroke Hemodynamically stable Currently on room air Data 03/13/24 03:21 03/13/24 03:21 Micro: Microbiology 03/10/24 05:18 Blood Culture - Final Blood NO GROWTH AFTER 5 DAYS 03/10/24 05:16 Blood Culture - Final Blood NO GROWTH AFTER 5 DAYS A&P Assessment and plan (1) Bipolar II disorder: (2) Major depressive disorder in partial remission: (3) Endocarditis: (4) PVCs (premature ventricular contractions): (5) Diabetes: Qualifiers: Diabetes mellitus type: type 2 Diabetes mellitus exterminator termite insulin use: without exterminator termite use Diabetes mellitus complication status: with hyperglycemia Qualified Code(s): E11.65 - Type 2 diabetes mellitus with hyperglycemia (6) Nausea & vomiting: Qualifiers: Vomiting type: unspecified Qualified Code(s): R11.2 - Nausea with vomiting, unspecified (7) Gastroparesis: (8) Infarction of spleen: Plan 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 Continue antibiotics Awaiting placement at [place] Will check with [facility] transfer line, they do not have a bed today Patient is hemodynamically stable Afebrile Cultures negative Patient experiencing bowel movement on daily basis No sign of constipation Continue diuresis Attestations 2 Medical Necessity Statement*: Continue medical management Diagnoses Bipolar II disorder F31.81 Major depressive disorder in partial remission F32.4 Endocarditis I38 PVCs (premature ventricular contractions) I49.3 Type 2 diabetes mellitus with hyperglycemia, without long-term current use of insulin E11.65 Diabetes mellitus type: type 2 Diabetes mellitus exterminator termite insulin use: without exterminator termite use Diabetes mellitus complication status: with hyperglycemia Nausea and vomiting, unspecified vomiting type R11.2 Vomiting type: unspecified Gastroparesis K31.84 Infarction of spleen D73.5
[2024-03-14] MEDS: sennosides-docusate Tablet 2 TAB PO ×2 (08:31→17:26)
[2024-03-14] MEDS: potassium chloride ER 20 mEq Tablet 40 MEQ PO (08:31)
[2024-03-14] MEDS: insulin lispro 100 unit/1 mL SUBCUT ×3 (08:32→17:27)
[2024-03-14] MEDS: amiodarone 200 mg Tablet 400 MG PO ×2 (08:32→17:26)
[2024-03-14] MEDS: cefTRIAXone 2,000 MG in sodium chloride 0.9% (plus) 50 ML 100 MG IV (08:37)
[2024-03-14] MEDS: FUROsemide 10 mg/mL SDV 2mL 20 MG IVP (08:40)
[2024-03-14] MEDS: magnesium oxide 400 mg tablet PO ×2 (08:40→17:26)
[2024-03-14] MEDS: oxyCODONE 5 mg IR Tab/Cap PO ×2 (09:50→17:26)
[2024-03-14 12:04] LABS: Glucose Point of Care 221 mg/dL (70-110)
[2024-03-14 16:58] LABS: Glucose Point of Care 295 mg/dL (70-110)
[2024-03-14 20:52] LABS: Glucose Point of Care 165 mg/dL (70-110)
[2024-03-14] MEDS: insulin glargine 100 units/1 mL 30 UNIT SUBCUT (21:05)
[2024-03-15] VITALS (9 sets, daily range): BP systolic 119–135; BP diastolic 77–99; PULSE 87–102; RESP 17–31; TEMP 36.3–37.1; O2SAT 94–97; BMI 37.8
[2024-03-15] MEDS: morphine 4 mg/mL SDV 1 mL 2 MG IVP (01:19)
[2024-03-15] MEDS: vancomycin 1,500 MG/300 ML PIGGYBACK 200 MG IV ×2 (01:22→13:59)
[2024-03-15 06:31] LABS: Glucose Point of Care 132 mg/dL (70-110)
--- NOTE | 2024-03-15 07:28 | P.PN_ITS ---
Subjective 2 Subjective: Patient is doing well. Has some abdominal discomfort. Vitals/I&O/Wt Last Vital Signs Temp 98.7 F 03/15/24 03:55 Pulse 94 03/15/24 03:55 Resp 26 H 03/15/24 03:55 BP 129/97 03/15/24 03:55 Pulse Ox 95 03/15/24 03:55 O2 Del Method CPAP 03/15/24 03:55 O2 Flow Rate 10 03/10/24 10:22 FiO2 21 03/12/24 22:13 03/14/24 03/15/24 03/15/24 22:59 06:59 14:59 Intake Total 300 / 1130 Output Total 465 / 465 0 / 465 200 / 200 Balance -465 / 365 300 / 665 -200 / -200 Physical Exam 2 Narrative: GENERAL: Patient is alert, awake and oriented x3. [] NECK: No jugular vein distension. [] HEENT: No cyanosis. No icterus. No pallor. [] HEART: Regular S1 and S2. No murmur, rub or gallop. [] LUNGS: Clear to auscultate bilaterally. [] EXTREMITIES: Lower extremities with 1+ edema bilaterally. Data 03/13/24 03:21 03/13/24 03:21 Micro: Microbiology 03/10/24 05:18 Blood Culture - Final Blood NO GROWTH AFTER 5 DAYS 03/10/24 05:16 Blood Culture - Final Blood NO GROWTH AFTER 5 DAYS A&P Assessment and plan (1) CVA (cerebral vascular accident): (2) Nausea & vomiting: Qualifiers: Vomiting type: unspecified Qualified Code(s): R11.2 - Nausea with vomiting, unspecified (3) Infarction of spleen: Plan Patient is stable. Can continue on anticoagulation. Continue antibiotics per primary team. Thank you for involving us with care of this patient. We will continue to follow. Please call with questions. Attestations 2 Medical Necessity Statement*: Care expected to cross 2 midnights. Coding Level of Care Code Acute Code for [facility] Fwd Diagnoses CVA (cerebral vascular accident) I63.9 Nausea and vomiting, unspecified vomiting type R11.2 Vomiting type: unspecified Infarction of spleen D73.5
[2024-03-15] MEDS: magnesium oxide 400 mg tablet PO ×2 (08:15→18:09)
[2024-03-15] MEDS: FUROsemide 10 mg/mL SDV 2mL 20 MG IVP (08:15)
[2024-03-15] MEDS: sennosides-docusate Tablet 2 TAB PO ×2 (08:15→18:09)
[2024-03-15] MEDS: potassium chloride ER 20 mEq Tablet 40 MEQ PO (08:15)
[2024-03-15] MEDS: amiodarone 200 mg Tablet 400 MG PO ×2 (08:16→18:09)
[2024-03-15] MEDS: cefTRIAXone 2,000 MG in sodium chloride 0.9% (plus) 50 ML 100 MG IV (08:19)
[2024-03-15] MEDS: oxyCODONE 5 mg IR Tab/Cap PO (08:20)
--- NOTE | 2024-03-15 10:20 | P.PN_ITS ---
Subjective 2 Subjective: Awaiting transfer Feeling better Vitals/I&O/Wt Last Vital Signs Temp 97.9 F 03/16/24 07:05 Pulse 95 03/16/24 07:05 Resp 27 H 03/16/24 07:05 BP 130/94 03/16/24 07:05 Pulse Ox 93 03/16/24 07:05 O2 Del Method Room Air 03/16/24 07:05 O2 Flow Rate 10 03/10/24 10:22 FiO2 21 03/12/24 22:13 03/15/24 03/16/24 03/16/24 22:59 06:59 14:59 Intake Total 300 / 1110 540 / 1650 Balance 300 / -65 540 / 475 Weight last 48 hrs Weight 112.718 kg Physical Exam 2 Narrative: Sitting comfortably in his recliner Distended abdomen Left lower quadrant pain slightly better Nonfocal neuroexam GCS 15 No sign of stroke Hemodynamically stable Currently on room air Data 03/13/24 03:21 03/13/24 03:21 Micro: Microbiology 03/08/24 14:02 Blood Culture - Final Blood Staph capitis sub ureolyticus 03/10/24 05:18 Blood Culture - Final Blood NO GROWTH AFTER 5 DAYS 03/10/24 05:16 Blood Culture - Final Blood NO GROWTH AFTER 5 DAYS A&P Assessment and plan (1) Endocarditis: Plan Awaiting transfer Continue antibiotics and therapeutic anticoagulating agent Afebrile Cultures negative [place] does not have any beds today Patient is not constipated, having regular bowel movement on daily basis Attestations 2 Medical Necessity Statement*: Likely will discharge by tomorrow Diagnoses Endocarditis I38
[2024-03-15 12:48] LABS: Glucose Point of Care 180 mg/dL (70-110)
[2024-03-15] MEDS: insulin lispro 100 unit/1 mL SUBCUT ×2 (13:10→18:09)
[2024-03-15 17:36] LABS: Glucose Point of Care 184 mg/dL (70-110)
[2024-03-15 21:33] LABS: Glucose Point of Care 194 mg/dL (70-110)
[2024-03-15] MEDS: insulin glargine 100 units/1 mL 30 UNIT SUBCUT (22:24)
[2024-03-16 00:53] VITALS: BP 131/91; PULSE 108; RESP 24; TEMP 36.4; O2SAT 95
[2024-03-16] MEDS: vancomycin 1,500 MG/300 ML PIGGYBACK 200 MG IV (00:53)
[2024-03-16 04:47] VITALS: BP 125/93; PULSE 97; RESP 25; TEMP 36.6; O2SAT 94
[2024-03-16 05:11] VITALS: PULSE 97
[2024-03-16 06:39] LABS: Glucose Point of Care 152 mg/dL (70-110)
[2024-03-16 07:05] VITALS: BP 130/94; PULSE 95; RESP 27; TEMP 36.6; O2SAT 93
--- NOTE | 2024-03-16 08:00 | P.TS_ITS ---
Transfer Summary Providers Date of Admission: 03/08/24 01:17 Date of Discharge/Transfer: 03/16/24 Attending Provider at Admission: Khalida Gomez MD Attending Provider at Transfer: Khalida Gomez MD Primary Care Provider: ANDRES Pettit Transfer Plans: Anticipated date of transfer: 03/16/24 . Diagnoses at Discharge Discharge Diagnosis (1) CVA (cerebral vascular accident): Status: Chronic (2) Nausea & vomiting: Status: Acute Qualifiers: Vomiting type: unspecified Qualified Code(s): R11.2 - Nausea with vomiting, unspecified (3) Infarction of spleen: Status: Acute Reason for Visit Reason for Visit abd pain Hospital Course Hospital Course 63 male who present to the hospital for left upper quadrant pain, he was diagnosed with splenic infarct, please note he was diagnosed with acute atherosclerotic/ischemic CVA 1 week ago at [facility], as per the considering low EF he went for coronary angiogram which was unremarkable no stent was placed, he carries history of systolic CHF with EF 20%, nonischemic cardiomyopathy status post AICD/pacemaker. On this visit there was concern for endocarditis he was put on ceftriaxone and vancomycin, he remained afebrile, however leukocytosis worsened up to 19,000, with addition of antibiotics it is trending down, he remained afebrile, did not complain of any active chest pain, blood culture showing preliminary gram-positive cocci in clusters, echo transthoracic showed possible vegetation, cardiology was consulted for transesophageal echo which showed septal mass versus endocarditis, patient will need surgical evaluation at tertiary center, he will go to [facility] for surgical evaluation, his EF has reduced down to 10%. He discharged active signs of hypervolemia with clinical signs of acute CHF exacerbation. He has mild right-sided weakness from recent stroke. Patient is diabetic as well requires cardiac consistent carb diet. He is CPAP at nighttime for sleep apnea. Hemoglobin 14, pH 7.4 pCO2 33 pO2 67 on room air sodium 130 creatinine 0.6 hemoglobin A1c around 9 Physical Exam Narrative: Morbidly obese male Laying supine Left upper quadrant pain S1, S2 Afebrile Nonfocal neuroexam No sign of thromboembolic phenomenon noticed with pulm lesion or splinter hemorrhage No active vision changes Nonfocal neuroexam Currently on room air TS Data Studies Completed and Pending Pending at discharge Category Date Time Status Blood Culture AM LABS Lab 03/10/24 05:18 Results Blood Culture Stat Lab 03/08/24 14:40 Results Completed Studies During Hospitalization Category Date Time Status CT abdomen pelvis w con* [id number] Stat Cat Scan 03/07/24 22:33 Completed XR chest 1V portable [id number] Routine Exams 03/08/24 13:48 Completed CV echo complete* [id number] Routine Ultrasound 03/08/24 13:33 Completed CV. echo lmt w/w contras [id number] Routine Ultrasound 03/10/24 17:19 Completed CV. echo transesophageal [id number] Routine Ultrasound 03/10/24 08:46 Completed Laboratory Last Values WBC 19.18 10^3/uL (3.29-11.43) H 03/13/24 03:21 RBC 4.83 10^6/uL (3.85-5.65) 03/13/24 03:21 Hgb 14.70 g/dL (11.27-16.99) 03/13/24 03:21 Hct 43.1 % (37-53) 03/13/24 03:21 MCV 89.2 fl (82-101) 03/13/24 03:21 MCH 30.4 pg (27-33) 03/13/24 03:21 MCHC 34.1 g/dL (30-55) 03/13/24 03:21 RDW 14.0 % (12.1-15.1) 03/13/24 03:21 Plt Count 250 10^3/cmm (157-399) 03/13/24 03:21 MPV 11.6 fL (7.4-10.4) H 03/13/24 03:21 Neut % (Auto) 82.6 % 03/13/24 03:21 Lymph % (Auto) 6.9 % 03/13/24 03:21 [place]oun % (Auto) 7.5 % 03/13/24 03:21 Eos % (Auto) 0.5 % 03/13/24 03:21 Baso % (Auto) 0.4 % 03/13/24 03:21 Neut # (Auto) 15.87 10^3/uL (1.8-7.7) H 03/13/24 03:21 Lymph # (Auto) 1.3 10^3/uL (0.8-4.8) 03/13/24 03:21 [place] # (Auto) 1.4 10^3/uL (0.2-0.9) H 03/13/24 03:21 Eos # (Auto) 0.1 10^3/uL (0.0-0.8) 03/13/24 03:21 Baso # (Auto) 0.1 10^3/uL (0.0-0.1) 03/13/24 03:21 Nucleated RBC % (auto) 0 % 03/13/24 03:21 Nucleated RBCs # 0.0 /100WBC 03/13/24 03:21 Specimen Type Arterial 03/10/24 10:47 Sample Site Radial, right 03/10/24 10:47 ABG pH 7.44 (7.35-7.45) 03/10/24 10:47 ABG pCO2 33.6 mmHg (35-45) L 03/10/24 10:47 ABG pO2 67.6 mmHg (80.0-100.0) L 03/10/24 10:47 ABG PO2/FiO2 Ratio 0 03/10/24 10:47 ABG HCO3 22.9 mmol/L (22-26) 03/10/24 10:47 ABG O2 Saturation 95.6 03/10/24 10:47 ABG Base Excess -0.6 mmol/L (-2.0-2.0) 03/10/24 10:47 Oral Test Pos 03/10/24 10:47 A-a O2 Gradient 5.2 mmHg (5-10) 03/10/24 10:47 Hematocrit 43.1 % (42-52) 03/10/24 10:47 Hgb O2 Saturation 93.9 % (95-100) L 03/10/24 10:47 Carboxyhemoglobin 1.6 %THgb (0.4-20.1) 03/10/24 10:47 Methemoglobin 0.2 % (0.4-1.5) L 03/10/24 10:47 Total Hemoglobin 14.1 g/dL (14-18) 03/10/24 10:47 Sodium 131.0 mmol/L (131-143) 03/10/24 10:47 Potassium 3.4 mmol/L (3.5-5.0) L 03/10/24 10:47 Glucose 211.0 mg/dL (70-115) H 03/10/24 10:47 Ionized Calcium 1.2 mmol/L (1.1-1.4) 03/10/24 10:47 O2 Delivery Device Room air 03/10/24 10:47 FiO2 21.0 % 03/10/24 10:47 Policy Change Clerk ID Casey 03/10/24 10:47 Sodium 123 mmol/L (136-145) L 03/13/24 03:21 Potassium 3.4 mmol/L (3.5-5.1) L 03/13/24 03:21 Chloride 89 mmol/L (98-107) L 03/13/24 03:21 Carbon Dioxide 20 mmol/L (22-29) L 03/13/24 03:21 Anion Gap 17.4 (5-19) 03/13/24 03:21 BUN 15 mg/dL (8-23) 03/13/24 03:21 Creatinine 0.6 mg/dL (0.7-1.2) L 03/13/24 03:21 GFR Calculation 136.1 mL/min (90-130) H 03/13/24 03:21 Glucose 191 mg/dL (65-115) H 03/13/24 03:21 POC Glucose 233 mg/dL (70-110) H 03/13/24 20:33 Estimat Average Glucose 220 03/08/24 07:02 Hemoglobin A1c 9.3 % (4.0-6.0) H 03/08/24 07:02 Calculated Osmolality 262 mOsm/kg (285-295) L 03/13/24 03:21 Lactic Acid 1.8 mmol/L (0.5-2.2) 03/07/24 23:03 Calcium 8.6 mg/dL (8.5-10.5) 03/13/24 03:21 Phosphorus 2.8 mg/dL (2.5-4.5) 03/09/24 05:00 Magnesium 1.6 mg/dL (1.7-2.3) L 03/11/24 04:25 Total Bilirubin 1.0 mg/dL (0.15-1.2) 03/08/24 10:55 AST 22 U/L (0-40) 03/08/24 10:55 ALT 38 U/L (0-41) 03/08/24 10:55 Alkaline Phosphatase 155 U/L (40-130) H 03/08/24 10:55 Lactate Dehydrogenase 957 U/L (135-225) H 03/11/24 04:25 C-Reactive Protein 298.8 mg/L (0.0-4.9) H 03/11/24 04:25 Total Protein 6.3 g/dL (6.6-8.7) L 03/08/24 10:55 Albumin 2.8 g/dL (3.5-5.2) L 03/08/24 10:55 Globulin 3.5 g/dL (1.3-4.6) 03/08/24 10:55 Lipase 49 U/L (13-60) 03/07/24 23:03 Vitamin B12 896 pg/mL (232-1245) 03/08/24 07:02 Urine Color Yellow (Yellow) 03/07/24 23:54 Urine Appearance Clear (CLEAR) 03/07/24 23:54 Urine pH 7 (5-7) 03/07/24 23:54 Ur Specific [place] 1.005 (1.005-1.030) 03/07/24 23:54 Urine Protein Neg (Negative) 03/07/24 23:54 Urine Glucose (UA) 4+ (Normal) H 03/07/24 23:54 Urine Ketones Negative (Negative) 03/07/24 23:54 Urine Blood Neg (Negative) 03/07/24 23:54 Urine Nitrate Negative (Negative) 03/07/24 23:54 Urine Bilirubin Neg (Negative) 03/07/24 23:54 Urine Urobilinogen Neg mg/dL (Negative) 03/07/24 23:54 Ur Leukocyte Esterase Negative (Negative) 03/07/24 23:54 Vancomycin Trough 14.0 ug/mL (10-15) 03/13/24 12:51 Radiology Impressions Abdomen/Pelvis CT 03/07/24 22:33 IMPRESSION: 1. 8.7 cm somewhat wedge-shaped low-density area in the spleen with a smaller 12.8 mm low-density area, new compared to prior exam, finding may reflect a splenic infarct. Small amount of surrounding edema is seen in the mesentery. Please correlate clinically. The splenic vasculature appears patent. 2. Left kidney nonobstructing calyceal stone. 3. Bilateral perinephric edema bilaterally likely reflecting renal sufficiency, please correlate for pyelonephritis. 4. Small amount of nonspecific fluid in the pelvis and paracolic gutters bilaterally. 5. Trace bilateral left greater than right pleural effusions. 6. Cardiomegaly. 7. Sternotomy wires. 8. Bibasilar atelectasis versus infiltrate. 9. Small bilateral left greater than right fat containing inguinal hernias. 10. S1 vertebral body stable sclerotic bony lesion, whole body nuclear medicine bone scan could further characterize this Chest X-Ray 03/08/24 13:48 IMPRESSION: No acute findings. Recent Clincial Data Last Vital Signs Temp 91.8 F L 03/14/24 04:00 Pulse 96 03/14/24 04:00 Resp 23 H 03/14/24 04:00 BP 116/86 03/14/24 04:00 Pulse Ox 95 03/14/24 04:00 O2 Del Method BiPAP 03/14/24 04:00 O2 Flow Rate 10 03/10/24 10:22 FiO2 21 03/12/24 22:13 Vital Signs Temp Pulse Resp BP Pulse Ox O2 Del Method 03/14/24 04:00 91.8 F L 96 23 H 116/86 95 BiPAP 03/14/24 00:52 20 H 95 03/14/24 00:00 97.1 F L 101 H 27 H 158/93 95 Room Air 03/13/24 22:00 102 H 03/13/24 20:03 25 H 91 03/13/24 19:42 97.7 F 104 H 33 H 128/83 91 CPAP Intake & Output/Weight 03/11/24 03/12/24 03/13/24 03/14/24 06:59 06:59 06:59 06:59 Intake Total 0 / 2070 1274.479 / 4793.235 4266 / 1906 1704 / 1704 Output Total 1650 / 1650 800 / 800 180 / 180 100 / 100 Balance 420 / 420 474.479 / 681.061 4780 / 1726 1604 / 1604 Weight 117.934 kg 112.718 kg Vitals Last Vital Signs Temp 91.8 F L 03/14/24 04:00 Pulse 96 03/14/24 04:00 Resp 23 H 03/14/24 04:00 BP 116/86 03/14/24 04:00 Pulse Ox 95 03/14/24 04:00 O2 Del Method BiPAP 03/14/24 04:00 O2 Flow Rate 10 03/10/24 10:22 FiO2 21 03/12/24 22:13 TS Medications Medications Albuterol/Ipratropium (Ipratropium-Albuterol 3 Ml Neb) 3 ml INHALATION Q6H PRN PRN Reason: SHORTNESS OF BREATH Amiodarone HCl (Amiodarone 200 Mg Tablet) 400 mg PO BID [facility] Last Admin: 03/13/24 18:37 Dose: 400 mg Furosemide (Furosemide 10 Mg/Ml Sdv 2ml) 20 mg IVP Q24H JOSHUA Last Admin: 03/13/24 08:18 Dose: 20 mg Ceftriaxone Sodium 2,000 mg/ (Sodium Chloride) 50 mls @ 100 mls/hr IV Q24H [facility]; Protocol Last Infusion: 03/13/24 09:28 Dose: Infused Dextrose (D5w) 500 mls @ 0 mls/hr IV ONCE PRN; Protocol PRN Reason: Adult Acute Hypoglycemia Prot Dextrose (D10w) 125 mls @ 750 mls/hr IV PRN PRN; Protocol PRN Reason: Adult Acute Hypoglycemia Nursing Protocol Dextrose (D10w) 250 mls @ 1,000 mls/hr IV PRN PRN; Protocol PRN Reason: Adult Acute Hypoglycemia Nursing Protocol Vancomycin/PEG/NADA/Lysine/Water (Vancocin) 1,500 mg in 300 mls @ 200 mls/hr IV Q12H [facility] Last Infusion: 03/14/24 01:56 Dose: Infused Insulin Glargine (Insulin Glargine 100 Units/1 Ml) 30 unit SUBCUT BEDTIME [facility] Last Admin: 03/13/24 21:03 Dose: 30 unit Insulin Human Lispro (Insulin Lispro 100 Unit/1 Ml) 0 unit SUBCUT TIDWM [facility]; Protocol Last Admin: 03/13/24 18:37 Dose: 6 unit Magnesium Oxide (Magnesium Oxide 400 Mg Tablet) 400 mg PO BID [facility] Last Admin: 03/13/24 18:37 Dose: 400 mg Morphine Sulfate (Morphine 4 Mg/Ml Sdv 1 Ml) 2 mg IVP Q4H PRN PRN Reason: SEVERE PAIN Last Admin: 03/14/24 00:52 Dose: 2 mg Oxycodone HCl (Oxycodone 5 Mg Ir Tab/Cap) 5 mg PO Q6H PRN PRN Reason: MODERATE PAIN Last Admin: 03/13/24 20:03 Dose: 5 mg Potassium Chloride (Potassium Chloride Er 20 Meq Tablet) 40 meq PO DAILY [facility] Last Admin: 03/13/24 08:18 Dose: 40 meq Senna/Docusate Sodium (Sennosides-Docusate Tablet) 2 tab PO BID [facility] Last Admin: 03/13/24 18:37 Dose: 2 tab Discontinued Medications Acetaminophen (Acetaminophen 500 Mg Tablet) 500 mg PO Q4H PRN PRN Reason: fever Last Admin: 03/09/24 20:25 Dose: 500 mg Albuterol/Ipratropium (Ipratropium-Albuterol 3 Ml Neb) 3 ml INHALATION Q6H PRN PRN Reason: SHORTNESS OF BREATH Last Admin: 03/11/24 01:04 Dose: 3 ml Apixaban (Apixaban 5 Mg Tablet) 5 mg PO BID@0900,2100 [facility] Last Admin: 03/11/24 09:00 Dose: 5 mg Aspirin (Aspirin 81 Mg Ec Tablet) 81 mg PO DAILY [facility] Last Admin: 03/11/24 09:00 Dose: 81 mg Benzocaine/Butamben/Tetracaine HCl (Cetacaine [place] 5 Gm Can) Confirm Administered Dose 5 spray .ROUTE .STK-MED ONE Stop: 03/10/24 08:42 Furosemide (Furosemide 10 Mg/Ml Sdv 2ml) 20 mg IVP Q24H [facility] Last Admin: 03/11/24 11:47 Dose: 20 mg Furosemide (Furosemide 10 Mg/Ml Sdv 4ml) 40 mg IVP ONCE ONE Stop: 03/10/24 22:47 Last Admin: 03/10/24 23:18 Dose: 40 mg Hydromorphone HCl (Hydromorphone 1 Mg/Ml Inj 1 Ml) 0.4 mg IVP Q4H PRN PRN Reason: SEVERE PAIN Last Admin: 03/10/24 21:56 Dose: 0.4 mg Sodium Chloride (Sodium Chloride 0.9%) 1,000 mls @ 999 mls/hr IV .Q1H1M ONE Stop: 03/07/24 23:33 Last Infusion: 03/08/24 03:34 Dose: Infused Dextrose (D5w) 500 mls @ 0 mls/hr IV ONCE PRN; Protocol PRN Reason: Adult Acute Hypoglycemia Prot Dextrose (D10w) 125 mls @ 750 mls/hr IV PRN PRN; Protocol PRN Reason: Adult Acute Hypoglycemia Nursing Protocol Dextrose (D10w) 250 mls @ 1,000 mls/hr IV PRN PRN; Protocol PRN Reason: Adult Acute Hypoglycemia Nursing Protocol Sodium Chloride (Sodium Chloride 0.9%) 1,000 mls @ 75 mls/hr IV .[id number] [facility] Last Infusion: 03/09/24 12:11 Dose: Infused Magnesium Sulfate (Magnesium Sulfate Premix) 2 gm in 50 mls @ 50 mls/hr IV ONCE ONE Stop: 03/08/24 14:28 Last Infusion: 03/08/24 14:46 Dose: Infused Lactated Ringer's (Lactated Ringers) 1,000 mls @ 999 mls/hr IV .Q1H1M ONE Stop: 03/08/24 14:40 Last Admin: 03/08/24 19:25 Dose: Not Given Sodium Chloride (Sodium Chloride 0.9%) 250 mls @ 250 mls/hr IV ONCE ONE Stop: 03/08/24 14:46 Last Infusion: 03/08/24 15:45 Dose: Infused Ceftriaxone Sodium 2,000 mg/ (Sodium Chloride) 50 mls @ 100 mls/hr IV DAILY [facility]; Protocol Last Admin: 03/11/24 09:01 Dose: 100 mls/hr Vancomycin/PEG/NADA/Lysine/Water (Vancocin) 2,000 mg in 400 mls @ 200 mls/hr IV Q12H [facility] Last Admin: 03/11/24 11:48 Dose: 200 mls/hr Lidocaine HCl (Xylocaine) Confirm Administered Dose 5 mls @ as directed .ROUTE .STK-MED ONE Stop: 03/10/24 11:52 Sodium Chloride (Sodium Chloride 0.9%) 1,000 mls @ 30 mls/hr IV .Q24H [facility] Last Infusion: 03/10/24 10:28 Dose: Infused Amiodarone HCl/Dextrose (Nexterone) 150 mg in 100 mls @ 400 mls/hr IV ONCE ONE Stop: 03/10/24 19:53 Last Infusion: 03/11/24 00:46 Dose: Infused Amiodarone HCl/Dextrose (Nexterone) 360 mg in 200 mls @ 0 mls/hr IV .Q0M [facility]; Protocol Last Titration: 03/12/24 01:05 Dose: 0 mg/min, 0 mls/hr Magnesium Sulfate (Magnesium Sulfate Premix) 2 gm in 50 mls @ 50 mls/hr IV ONCE ONE Stop: 03/10/24 21:27 Last Infusion: 03/11/24 00:46 Dose: Infused Lidocaine HCl 5 ml/ Potassium (Chloride) 105 mls @ 25 mls/hr IV ONCE ONE Stop: 03/11/24 13:54 Last Admin: 03/11/24 10:41 Dose: 25 mls/hr Vancomycin HCl / Sodium (Chloride) 250 mls @ 0 mls/hr [id number] PROTOCOL [facility]; Protocol Amiodarone HCl/Dextrose (Nexterone) 360 mg in 200 mls @ 0 mls/hr IV .Q0M [facility]; Protocol Magnesium Sulfate/Dextrose (Magnesium Sulfate Premix) 1 gm in 100 mls @ 200 mls/hr IV ONCE ONE Stop: 03/11/24 18:13 Last Infusion: 03/12/24 02:53 Dose: Infused Insulin Glargine (Insulin Glargine 100 Units/1 Ml) 20 unit SUBCUT BEDTIME JOSHUA Insulin Glargine (Insulin Glargine 100 Units/1 Ml) 30 unit SUBCUT BEDTIME [facility] Last Admin: 03/10/24 20:59 Dose: 30 unit Insulin Human Lispro (Insulin Lispro 100 Unit/1 Ml) 0 unit SUBCUT TIDWM [facility]; Protocol Last Admin: 03/11/24 11:47 Dose: 8 unit Iohexol (Iohexol 350 Mg/Ml 500 Ml Btl (Per Ml)) 0 ml IV ONCE ONE Stop: 03/07/24 22:51 Last Admin: 03/07/24 22:51 Dose: 100 ml Lactulose (Lactulose Oral Liq 20 Gm/30 Ml Udc) 20 gm PO ONCE ONE Stop: 03/09/24 08:25 Last Admin: 03/09/24 09:02 Dose: 20 gm Morphine Sulfate (Morphine 4 Mg/Ml Sdv 1 Ml) 4 mg IVP ONCE ONE Stop: 03/07/24 22:34 Last Admin: 03/07/24 22:42 Dose: 4 mg Morphine Sulfate (Morphine 4 Mg/Ml Sdv 1 Ml) 2 mg IVP Q4H PRN PRN Reason: SEVERE PAIN Last Admin: 03/11/24 01:18 Dose: 2 mg Ondansetron HCl (Ondansetron 2 Mg/Ml Sdv 2 Ml) 4 mg IVP ONCE ONE Stop: 03/07/24 22:34 Last Admin: 03/07/24 22:42 Dose: 4 mg Ondansetron HCl (Ondansetron 2 Mg/Ml Sdv 2 Ml) 4 mg IVP Q6H PRN PRN Reason: NAUSEA AND VOMITING Perflutren Protein Type A Microsphe (Perflutren Protein-A Microsphr 0.22 Mg/Ml Sdv 3 Ml) 0 ml IV ONCE ONE Stop: 03/11/24 06:00 Last Admin: 03/11/24 06:17 Dose: 3 ml Potassium Chloride (Potassium Chloride Er 20 Meq Tablet) 40 meq PO DAILY [facility] Last Admin: 03/11/24 09:01 Dose: 40 meq Potassium Chloride (Potassium Chloride Er 20 Meq Tablet) 40 meq PO ONCE ONE Stop: 03/10/24 20:30 Last Admin: 03/10/24 20:58 Dose: 40 meq Propofol (Propofol 10 Mg/Ml Sdv 20 Ml) Confirm Administered Dose 200 mg .ROUTE .STK-MED ONE Stop: 03/10/24 11:52 Senna/Docusate Sodium (Sennosides-Docusate Tablet) 2 tab PO BID [facility] Last Admin: 03/11/24 09:00 Dose: 2 tab Allergies isosorbide Allergy (Verified 03/08/24 08:05) unknown Penicillins Adverse Reaction (Verified 03/08/24 08:05) rash Home Medications blood-glucose meter (Blood Glucose Monitoring kit) #1 ea 07/06/20 [Rx Confirmed 03/10/24] albuterol sulfate 90 mcg/actuation aerosol inhaler (ProAir HFA) 2 puff inhalation Q6H PRN shortness of breath or wheezing #18 grams 05/20/22 [Rx Confirmed 03/10/24] nebulizer machine with tubing and mask #1 ea 09/09/22 [Rx Confirmed 03/10/24] blood sugar diagnostic (Blood Glucose Test strips) #100 ea 12/05/22 [Rx Confirmed 03/10/24] lancets 33 gauge (BD Ultra Fine Lancets) #100 ea 12/05/22 [Rx Confirmed 03/10/24] [id number] acid-vit K-lycop 400 mcg-20 mcg-370 mcg tablet (Men's 50 Plus Multivitamin) 1 tab PO DAILY 04/07/23 [History Confirmed 03/10/24] albuterol sulfate 2.5 mg/3 mL (0.083 %) solution for nebulization 2.5 mg (3 mL) inhalation QID PRN shortness of breath or wheezing #180 mL 06/10/23 [Rx Confirmed 03/10/24] fluticasone propionate 50 mcg/actuation nasal spray,suspension (Flonase Allergy Relief) 2 spray intranasal DAILY PRN Allergy Symptoms 08/17/23 [History Confirmed 03/10/24] clopidogrel 75 mg tablet 75 mg PO DAILY #30 tabs 11/20/23 [Rx Confirmed 03/10/24] sacubitril 97 mg-valsartan 103 mg tablet (Entresto) 1 tab PO BID 11/21/23 [History Confirmed 03/10/24] omega 7-xav-bls-fish oil 300 mg-1,000 mg capsule (Fish Oil) 1 cap PO DAILY #90 caps 12/08/23 [Rx Confirmed 03/10/24] allopurinol 300 mg tablet 300 mg PO QAM #90 tabs 01/19/24 [Rx Confirmed 03/10/24] carvedilol 25 mg tablet 25 mg PO BID 90 days #180 tabs 01/19/24 [Rx Confirmed 03/10/24] promethazine 25 mg tablet 25 mg PO Q6H PRN nausea and vomiting #20 tabs 02/18/24 [Rx Confirmed 03/10/24] dapagliflozin propanediol 10 mg tablet (Farxiga) 10 mg PO DAILY 02/27/24 [History Confirmed 03/10/24] ibuprofen 800 mg tablet 800 mg PO Q8H PRN Pain or Fever 02/27/24 [History Confirmed 03/10/24] insulin glargine 100 unit/mL (3 mL) subcutaneous pen (Lantus Solostar U-100 Insulin) 25 unit SUBCUT BEDTIME 02/27/24 [History Confirmed 03/10/24] ondansetron HCl 8 mg tablet 8 mg PO TID PRN Nausea And Vomiting 02/27/24 [Hist ory Confirmed 03/10/24] rosuvastatin 40 mg tablet 40 mg PO BEDTIME 02/27/24 [History Confirmed 03/10/24] aspirin 81 mg tablet,delayed release 81 mg PO DAILY 03/08/24 [History Confirmed 03/10/24] furosemide 20 mg tablet (Lasix) 20 mg PO DAILY 03/08/24 [History Confirmed 03/10/24] levocetirizine 5 mg tablet (Xyzal) 5 mg PO DAILY PRN allergies 03/08/24 [History Confirmed 03/10/24] magnesium L-lactate 84 mg tablet,extended release 84 mg PO DAILY 03/08/24 [History Confirmed 03/10/24] pantoprazole 40 mg tablet,delayed release (Protonix) 40 mg PO BID 03/08/24 [History Confirmed 03/10/24] potassium citrate 10 mEq (1,080 mg) tablet,extended release 20 meq PO BID 03/08/24 [History Confirmed 03/10/24] sertraline 100 mg tablet 100 mg PO QAM 03/08/24 [History Confirmed 03/10/24] Discharge Plan Discharge Patient Disposition: Home Condition: Stable Prescriptions: No Action (DME) Blood Glucose Test Strip See Rx Instructions .ROUTE .MEDSUPPLY Qty: 100 11RF Rx Instructions: Check blood sugar 2 x daily and prn (DME) lancets [BD Ultra Fine Lancets] 33 gauge misc See Rx Instructions .ROUTE .MEDSUPPLY Qty: 100 11RF Rx Instructions: check blood sugar twice daily and as needed albuterol sulfate [ProAir HFA] 90 mcg/actuation HFA aerosol inhaler 2 puff INHALATION Q6H PRN (Reason: shortness of breath or wheezing) Qty: 18 2RF (DME) nebulizer machine with tubing and mask See Rx Instructions .Route .MEDSUPPLY Qty: 1 0RF Rx Instructions: As directed Entresto 97-103 mg tablet 1 tab PO BID allopurinol 300 mg tablet 300 mg PO QAM Qty: 90 1RF carvedilol 25 mg tablet 25 mg PO BID 90 Days Qty: 180 1RF (DME) blood-glucose meter [Blood Glucose Monitoring] Kit See Rx Instructions .ROUTE .MEDSUPPLY Qty: 1 0RF Rx Instructions: As directed; to test 2 x day and prn albuterol sulfate 2.5 mg /3 mL (0.083 %) solution for nebulization 2.5 mg inhalation QID PRN (Reason: shortness of breath or wheezing) Qty: 180 5RF omega 7-zjf-obt-fish oil [Fish Oil] 300-1,000 mg capsule 1 cap PO DAILY Qty: 90 1RF promethazine 25 mg tablet 25 mg PO Q6H PRN (Reason: nausea and vomiting) Qty: 20 0RF Men's 50 Plus Multivitamin 400-20-370 mcg Tablet 1 tab PO DAILY fluticasone propionate [Flonase Allergy Relief] 50 mcg/actuation spray,suspension 2 spray intranasal DAILY PRN (Reason: Allergy Symptoms) Rx Instructions: administer into each nostril clopidogrel 75 mg Tablet 75 mg PO DAILY Qty: 30 2RF ondansetron HCl 8 mg tablet 8 mg PO TID PRN (Reason: Nausea And Vomiting) dapagliflozin propanediol [Farxiga] 10 mg tablet 10 mg PO DAILY ibuprofen 800 mg tablet 800 mg PO Q8H PRN (Reason: Pain or Fever) rosuvastatin 40 mg tablet 40 mg PO BEDTIME insulin glargine [Lantus Solostar U-100 Insulin] 100 unit/mL (3 mL) insulin pen 25 unit SUBCUT BEDTIME aspirin 81 mg Tablet,Delayed Release (Dr/Ec) 81 mg PO DAILY sertraline 100 mg tablet 100 mg PO QAM pantoprazole [Protonix] 40 mg tablet,delayed release (DR/EC) 40 mg PO BID levocetirizine [Xyzal] 5 mg tablet 5 mg PO DAILY PRN (Reason: allergies) potassium citrate 10 mEq (1,080 mg) tablet extended release 20 meq PO BID Mag-Lactate SR 84 mg Tablet Extended Release 84 mg PO DAILY Lasix 20 mg tablet 20 mg PO DAILY Referrals: Lucrecia Blandon, [facility] [employer] PATHOLOGIST [Primary Care Provider] - Patient Instructions: Opioid Safety Transfer Attestations Time Spent in Transfer Care: greater than 30 min Status at Transfer: Cognitive status at transfer: cognitively intact ; Behavioral status at transfer: cooperative ; Quality Metrics Clinical Quality Measures [ No reported AMI, CVA or VTE this stay] Coding Level of Care Code Acute Code for Chg Fwd Diagnoses CVA (cerebral vascular accident) I63.9 Nausea and vomiting, unspecified vomiting type R11.2 Vomiting type: unspecified Infarction of spleen D73.5
--- NOTE | 2024-03-16 08:03 | PC.NURSE ---
Patient's called @ 08:02 with update. Patient left with adrianne cole. @08:00.
--- NOTE | 2024-03-16 08:54 | PC.NURSE ---
Patient has been transferred to [facility] via [facility]. Patient departed our facility at 0730am. Vital signs all stable, belongings sent with patient and has been notified.
== END 2024-03-16 07:30 | disposition short-term general hospital (02) | DRG 814 ==
LOC: ER 22:19 → MEDSURG 03-08 01:39 → ICU 03-10 19:57 → CSU 03-11 15:25
PROVIDERS: Internal Medicine; Admitting Provider Internal Medicine; Emergency Provider Emergency Medicine; PCP Nurse Practitioner Family; Visit Provider Internal Medicine
PROC: B24BZZ4 Ultrasonography of Heart with Aorta, Transesophageal (ICD-10-PCS; CPT 93312; principal; 2024-03-10 10:00)
DX: D73.5 Infarction of spleen (principal); I50.23 Acute on chronic systolic (congestive) heart failure; I38 Endocarditis, valve unspecified; F31.81 Bipolar II disorder; I42.8 Other cardiomyopathies; I47.20 Ventricular tachycardia, unspecified; E87.1 Hypo-osmolality and hyponatremia; I69.351 Hemiplegia and hemiparesis following cerebral infarction affecting right dominant side; I11.0 Hypertensive heart disease with heart failure; E11.65 Type 2 diabetes mellitus with hyperglycemia; E11.43 Type 2 diabetes mellitus with diabetic autonomic (poly)neuropathy; K31.84 Gastroparesis; G89.29 Other chronic pain; M54.50 Low back pain, unspecified; J44.9 Chronic obstructive pulmonary disease, unspecified; K21.9 Gastro-esophageal reflux disease without esophagitis; G47.33 Obstructive sleep apnea (adult) (pediatric); E78.2 Mixed hyperlipidemia; F17.210 Nicotine dependence, cigarettes, uncomplicated; F17.220 Nicotine dependence, chewing tobacco, uncomplicated; E83.42 Hypomagnesemia; E66.01 Morbid (severe) obesity due to excess calories; K59.00 Constipation, unspecified; I49.3 Ventricular premature depolarization; I25.2 Old myocardial infarction; Z79.02 Long term (current) use of antithrombotics/antiplatelets; Z79.4 Long term (current) use of insulin; Z86.16 Personal history of COVID-19; Z95.810 Presence of automatic (implantable) cardiac defibrillator; Z68.37 Body mass index [BMI] 37.0-37.9, adult
CPT/HCPCS: 36415; 36416; 36600; 71045; 74177; 80048; 80051; 80053; 80202; 81003; 82330; 82607; 82805; 82962; 83036; 83605; 83615; 83690; 83735; 84100; 85025; 86140; 87040; 87077; 87150; 87186; 87205; 92507; 92523; 92526; 92610; 93005; 93306; 93308; 93312; 93320; 93325; 94640; 94660; 96372; 96374; 96375; 96376; 97110; 97116; 97161; 97166; 97530; 97535; 99285; A4222; C8924; J0283; J0696; J1170; J1815; J1940; J2270; J2405; J2704; J3370; J3372; J3475; J3480; J7030; J7050; Q9956; Q9967

== ENCOUNTER 2024-03-29 08:44 | Oncology outpatient (recurring) (ONCR) | payer MEDICAID, SELFPAY ==
[2024-03-03 15:38] VITALS: BP 110/60; BMI 42.3
[2024-03-29 09:45] LABS: Basophils % 0.4 %; Eosinophils # 0.1 10^3/uL (0.0-0.8); Eosinophils % 1.1 %; Lymphocytes % 12.4 %; Mean Corpuscular HGB Conc 32.1 g/dL (30-55); Mean Corpuscular Hemoglobin 29.4 pg (27-33); Mean Corpuscular Volume 91.8 fl (82-101); Mean Platelet Volume 10.6 fL (7.4-10.4); Monocytes # 0.4 10^3/uL (0.2-0.9); Neutrophils # 6.65 10^3/uL (1.8-7.7); Neutrophils % 80.6 %; Nucleated Red Blood Cells % 0 %; Platelet Count 333 10^3/cmm (157-399); Red Blood Count 4.25 10^6/uL (3.85-5.65); Red Cell Distribution Width 14.4 % (12.1-15.1); White Blood Count 8.24 10^3/uL (3.29-11.43)
[2024-03-29 10:13] LABS: Alanine Aminotransferase 23 U/L (0-41); Albumin Level 3.1 g/dL (3.5-5.2); Alkaline Phosphatase 194 U/L (40-130); Anion Gap 16.2 (5-19); Aspartate Amino Transferase 24 U/L (0-40); Blood Urea Nitrogen 11 mg/dL (8-23); Calcium 9.1 mg/dL (8.5-10.5); Carbon Dioxide 27 mmol/L (22-29); Chloride 98 mmol/L (98-107); Creatine Phosphokinase 30 U/L (39-308); Globulin 3.4 g/dL (1.3-4.6); Glomerular Filtration Rate 75.5 mL/min (90-130); Glucose 183 mg/dL (65-115); Osmolality Calculated 288 mOsm/kg (285-295); Potassium 4.2 mmol/L (3.5-5.1); Sodium 137 mmol/L (136-145); Total Bilirubin 0.4 mg/dL (0.15-1.2); Total Protein 6.5 g/dL (6.6-8.7)
== END 2024-04-09 23:59 | disposition home or self-care (01) ==
PROVIDERS: Internal Medicine; PCP Nurse Practitioner Family; Visit Provider Internal Medicine Medical Oncology
DX: I33.0 Acute and subacute infective endocarditis (principal)
CPT/HCPCS: 36592; 80053; 82550; 85025

== ENCOUNTER → 2024-04-06 10:12 | Outpatient (BNVA) | payer MEDICAID, SELFPAY ==
[2024-03-03 15:38] VITALS: BP 110/60; BMI 42.3
== END ==
PROVIDERS: PCP Nurse Practitioner Family; Visit Provider Nurse Practitioner Family
DX: I63.9 Cerebral infarction, unspecified (principal)
CPT/HCPCS: 80053; 82550; 85025

== ENCOUNTER 2024-04-14 09:06 | Oncology outpatient (recurring) (ONCR) | payer MEDICAID, SELFPAY ==
[2024-03-03 15:38] VITALS: BP 110/60; BMI 42.3
[2024-04-14 09:48] LABS: Basophils % 0.5 %; Eosinophils # 0.2 10^3/uL (0.0-0.8); Eosinophils % 1.9 %; Lymphocytes # 2.1 10^3/uL (0.8-4.8); Lymphocytes % 26.6 %; Mean Corpuscular HGB Conc 32.9 g/dL (30-55); Mean Corpuscular Hemoglobin 29.7 pg (27-33); Mean Corpuscular Volume 90.5 fl (82-101); Mean Platelet Volume 10.7 fL (7.4-10.4); Monocytes # 0.7 10^3/uL (0.2-0.9); Monocytes % 8.5 %; Neutrophils # 4.99 10^3/uL (1.8-7.7); Neutrophils % 62.1 %; Nucleated Red Blood Cells % 0 %; Platelet Count 246 10^3/cmm (157-399); Red Blood Count 4.64 10^6/uL (3.85-5.65); Red Cell Distribution Width 15.3 % (12.1-15.1); White Blood Count 8.02 10^3/uL (3.29-11.43)
[2024-04-14 10:15] LABS: Alanine Aminotransferase 25 U/L (0-41); Albumin Level 3.5 g/dL (3.5-5.2); Alkaline Phosphatase 111 U/L (40-130); Anion Gap 15.6 (5-19); Aspartate Amino Transferase 20 U/L (0-40); Blood Urea Nitrogen 11 mg/dL (8-23); Calcium 9.1 mg/dL (8.5-10.5); Carbon Dioxide 26 mmol/L (22-29); Chloride 101 mmol/L (98-107); Creatine Phosphokinase 51 U/L (39-308); Globulin 3.3 g/dL (1.3-4.6); Glomerular Filtration Rate 85.2 mL/min (90-130); Glucose 161 mg/dL (65-115); Osmolality Calculated 289 mOsm/kg (285-295); Potassium 4.6 mmol/L (3.5-5.1); Sodium 138 mmol/L (136-145); Total Bilirubin 0.3 mg/dL (0.15-1.2); Total Protein 6.8 g/dL (6.6-8.7)
== END 2024-05-09 23:59 | disposition home or self-care (01) ==
PROVIDERS: Internal Medicine; PCP Nurse Practitioner Family; Visit Provider Internal Medicine Medical Oncology
DX: M77.42 Metatarsalgia, left foot (principal); I33.0 Acute and subacute infective endocarditis
CPT/HCPCS: 36592; 80053; 82550; 85025

== ENCOUNTER → 2024-04-19 10:02 | Outpatient (BNVA) | payer MEDICAID, SELFPAY ==
[2024-03-03 15:38] VITALS: BP 110/60; BMI 42.3
== END ==
PROVIDERS: PCP Nurse Practitioner Family; Visit Provider Nurse Practitioner Family
DX: I63.9 Cerebral infarction, unspecified (principal)
CPT/HCPCS: 80053; 82550; 85025

== ENCOUNTER 2024-05-30 07:56 | Inpatient (IN) | payer MEDICAID, SELFPAY ==
[2024-03-03 15:38] VITALS: BP 110/60; BMI 42.3
[2024-05-30] VITALS (99 sets, daily range): BP systolic 113–193; BP diastolic 70–132; PULSE 70–109; RESP 2–44; TEMP 36.4–36.8; O2SAT 87–98; BMI 40.1
--- NOTE | 2024-05-30 07:59 | XRR_ITS ---
PROCEDURE INFORMATION: Exam: XR Chest Exam date and time: 05/30/2024 8:18 AM Age: 63 years old Clinical indication: Shortness of breath TECHNIQUE: Imaging protocol: Radiologic exam of the chest. Views: 1 view. COMPARISON: CR XR chest 1V portable [id number] 03/08/2024 2:16 PM FINDINGS: Tubes, catheters and devices: Stable implanted electronic cardiac device projecting over the right chest. Lungs: Bibasilar hazy opacities and prominent interstitial lung markings. Pleural spaces: No large pleural effusion. No distinct pneumothorax. Heart/Mediastinum: Cardiomediastinal silhouette is midline and enlarged, stable. Bones/joints: Osseous structures are unchanged. XR/XR chest 1V portable [id number] IMPRESSION: 1. Bibasilar hazy opacities and prominent interstitial lung markings. This finding is consistent with pulmonary congestion. Overlying infiltrate is not excluded. 2. Cardiomediastinal silhouette is midline and enlarged, stable.
--- NOTE | 2024-05-30 08:00 | ECG_ITS ---
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 Measurements Intervals [place] Rate: 108 P: 51 [place]: 150 QRS: 176 QRSD: 189 T: 37 QT: 377 QTc: 507 Interpretive Statements ELECTRONIC VENTRICULAR PACEMAKER ABNORMAL RHYTHM ECG Compared to ECG 03/10/2024 19:33:10 No significant changes Electronically Signed On 05-30-2024 15:28:24 CDT by Joaquin Nayak M.D. [id number]
[2024-05-30] MEDS: ipratropium-albuterol 3 mL Neb INHALATION ×3 (08:10→20:14)
[2024-05-30] MEDS: albuterol 2.5 mg/3 mL Neb INHALATION (08:10)
--- NOTE | 2024-05-30 08:12 | ED_ITS ---
HPI - SOB/Dyspnea 2 General: Chief Complaint: Shortness of Breath/Dyspnea Stated Complaint: SOB Time Seen by Provider: 05/30/24 07:58 History of Present Illness: HPI Narrative: 63-year-old male with history of COPD, t ype 2 diabetes, stroke, cardiomyopathy with defibrillator placement, obstructive sleep apnea, bipolar disorder and atrial fibrillation on Eliquis and amiodarone who presents to the emergency room by ambulance with shortness of breath. Apparently he has been short of breath for couple days. Difficult history. I has he is very short of breath on presentation. No known fevers. He reports no chest pain at this time. After speaking with his she tells me that he has a history of endocarditis but cannot have surgery and so is on antibiotics indefinitely. He said he had been on doxycycline but had a skin reaction so has been put on something else. No known fevers at this time. No worsening swelling in his legs. He has a chronic cough which she says is not worse than normal. He is not on oxygen at home. EMS reports he was in the 60s when they arrived Review of Systems 2 Narrative: Constitutional symptoms: Negative except as documented in HPI. Skin symptoms: Negative except as documented in HPI. Eye symptoms: Negative except as documented in HPI. ENMT symptoms: Negative except as documented in HPI. Respiratory symptoms: Negative except as documented in HPI. Cardiovascular symptoms: Negative except as documented in HPI. Gastrointestinal symptoms: Negative except as documented in HPI. Genitourinary symptoms: Negative except as documented in HPI. Musculoskeletal symptoms: Negative except as documented in HPI. Neurologic symptoms: Negative except as documented in HPI. Psychiatric symptoms: Negative except as documented in HPI. Endocrine symptoms: Negative except as documented in HPI. PFSH ED 2 PFSH: Medical History Cardiac resynchronization therapy defibrillator ([employer]-D) in place [employer] [address] [place], 07/11/2020 Cardiomyopathy Mixed hyperlipidemia Hypertension CVA (cerebral vascular accident) PVCs (premature ventricular contractions) Hypomagnesemia Infarction of spleen Type 2 diabetes mellitus Nausea & vomiting Gastroparesis COPD (chronic obstructive pulmonary disease) Major depressive disorder, recurrent episode, mild degree Major depressive disorder in partial remission Allergic rhinitis Bipolar II disorder Diabetes Non-ST elevation OH (NSTEMI) Uses bilevel positive airway pressure (BPAP) ventilation at home 12/8cm Dysarthria Unstable angina Nonischemic congestive cardiomyopathy Chronic low back pain Elevated blood uric acid level History of sleep study 2017 at [facility]: Optimal pressure settings with BiPAP found to be 12/8 cm COVID-19 Wound infection following procedure infection with defibrillator lead revision, removed , scarring left subclavian area from this GERD (gastroesophageal reflux disease) ALBERTO (obstructive sleep apnea) C. difficile diarrhea Cataracts, bilateral CHF (congestive heart failure) Urolithiasis Multi stone former, calcium oxalate mono and dihydrate. Also calcium phosphate. Multiple interventions including endoscopy with laser lithotripsy and ESWL. Metabolic treatment with potassium citrate Hemorrhoids Psychiatric care Right ureteral calculus Osteoarthritis of hands, bilateral Pacemaker Surgical History S/P epidural steroid injection Status post hemorrhoidectomy Hx of umbilical hernia repair Hx of lithotripsy History of urethral stent H/O esophagogastroduodenoscopy (02/27/21) gastritis, duodenitis History of colonoscopy (02/27/21) descending colon polyp, hemorrhoids History of carpal tunnel release of both wrists History of permanent cardiac pacemaker placement Hx of cataract surgery Hx of shoulder surgery Family History Grandfather CAD (coronary artery disease) Brother Cancer colon cancer Diabetes Mother Diabetes Father No problems noted. Other Hypertension Rheumatoid arthritis Social History Smoking and tobacco/nicotine status: never used tobacco/nicotine Second hand smoke exposure: No Alcohol intake: former Year of sobriety/quit date alcohol: 1997 Substance/Drug Use: former Date of last use: 1997 Caregiver/support person: Yes Lives independently: Yes Household members: spouse Marital status: service: No Current occupational status: disabled Current gender identity: Male Special fernando needs: No Agree to transfusion: Yes Physical Exam 2 Narrative: EXAM NARRATIVE: General: Alert, moderate distress. Skin: Warm, dry. Head: Normocephalic, atraumatic. Neck: Supple, trachea midline. Eye: Extraocular movements are intact. Ears, nose, mouth and throat: Oral mucosa moist. Cardiovascular: Regular rate and rhythm, Normal peripheral perfusion. Respiratory: coarse, scattered wheeze, moderate increased wob. tachypnea, prolonged expiratory phase. breath sounds are equal, Symmetrical chest wall expansion. Gastrointestinal: Soft, Nontender, Non distended, Normal bowel sounds. Musculoskeletal: Normal ROM, no deformity. Neurological: Alert and oriented to person, place, time, and situation, No focal neurological deficit observed. Psychiatric: Cooperative, appropriate mood & affect. Course 2 Vital Signs: Vital signs: Vital Signs Temperature 97.5 F L 05/30/24 07:57 Pulse Rate 80 05/30/24 10:25 Respiratory Rate 24 H 05/30/24 10:25 Blood Pressure 169/115 05/30/24 10:25 Pulse Oximetry 92 05/30/24 10:25 Oxygen Delivery Me thod Nasal Cannula 05/30/24 08:29 Oxygen Flow Rate 6 05/30/24 08:29 Fraction of Inspir ed Oxygen 45 05/30/24 09:44 MDM - SOB/Dyspnea Medical Decision Making Differential diagnosis for patient with shortness of breath includes but is not limited to and based on the above HPI, review of systems and physical exam: Pneumonia. Bronchitis. Asthma or COPD with acute exacerbation. Acute coronary syndrome / OH. Pulmonary embolism. Anxiety. Congestive heart failure. Viral infections including influenza and Covid-19. Atrial fibrillation. Anxiety. Pleural effusion. Pneumothorax. Workup: Lab work, chest X-ray and EKG ordered to evaluate, rule in and rule out above pathologies EK AM. Rate 108. No ST-T changes, no ectopy, paced rhythm, this was reviewed and interpreted by myself the emergency room physician at 804 Lab Review: Laboratory results were reviewed and interpreted by myself the emergency room physician. Leukocytosis with a white count of 25,000. Lactic acidosis with a lactate of 5.8. Some renal insufficiency as compared to baseline. BUN and creatinine are 37 and 1.8. Ketones are negative. His glucose is elevated. Chest x-ray: Worsening cardiomegaly. Diffuse infiltrate that looks like congestive heart failure. Pacemaker/AICD in place. This was reviewed and interpreted by myself the ER physician. I reviewed the patient's medical record. Reexamination: Patient still with some wheeze and mild tachypnea but his work of breathing and respiratory rate have definitely improved on BiPAP and with Lasix and Solu- Medrol and breathing treatments. No altered mental status. We discussed that we do not have critical care here and he adamantly says he does not want to be transferred. No altered mental status. No focal motor deficits. Assessment and plan: Hypoxemic respiratory failure CHF exacerbation COPD exacerbation Lactic acidosis Leukocytosis Chronic endocarditis Possible sepsis Acute renal insufficiency Hyperglycemia ?80 mg IV Lasix, 125 mg Solu-Medrol, multiple updrafts, BiPAP for work of breathing with some definite improvement in his breathing at this time. Arredondo catheter to be in place. -10 units of IV insulin were given in the emergency room. ?No fluid given. Patient is fluid overloaded on his chest x-ray. And has severe congestive heart failure. -Broad-spectrum antibiotics were administered. Known bacterial endocarditis. I am giving linezolid and cefepime here in the emergency room. He does have leukocytosis and lactic acidosis. -Sepsis quality measures. -Lactic acid with a reflex was ordered. -Blood cultures were ordered. -I discussed the patient with the hospitalist on-call who is admitting the patient. - Discussed findings and plan with patient. Answered any questions. - All laboratory values were reviewed and interpreted personally by myself, the ER physician - All imaging was reviewed and interpreted personally by myself, the ER physician. - Evaluation and treatment of this problem were appropriate in the emergency setting -I spent a total of >35 minutes of critical care time managing the patient, independent of any other practitioner. -The time involved in the performance of separately reportable procedures was not counted towards critical care time. Lab Data 05/30/24 08:10 05/30/24 08:10 Labs/Radiology: Radiology Impressions Chest X-Ray 05/30/24 07:59 IMPRESSION: 1. Bibasilar hazy opacities and prominent interstitial lung markings. This finding is consistent with pulmonary congestion. Overlying infiltrate is not excluded. 2. Cardiomediastinal silhouette is midline and enlarged, stable. Laboratory Results WBC 24.51 10^3/uL (3.29-11.43) H 05/30/24 08:10 RBC 4.90 10^6/uL (3.85-5.65) 05/30/24 08:10 Hgb 14.80 g/dL (11.27-16.99) 05/30/24 08:10 Hct 45.6 % (37-53) 05/30/24 08:10 MCV 93.1 fl (82-101) 05/30/24 08:10 MCH 30.2 pg (27-33) 05/30/24 08:10 MCHC 32.5 g/dL (30-55) 05/30/24 08:10 RDW 16.6 % (12.1-15.1) H 05/30/24 08:10 Plt Count 240 10^3/cmm (157-399) 05/30/24 08:10 MPV 11.9 fL (7.4-10.4) H 05/30/24 08:10 Neut % (Auto) 71.2 % 05/30/24 08:10 Lymph % (Auto) 22.4 % 05/30/24 08:10 Stanton % (Auto) 5.5 % 05/30/24 08:10 Eos % (Auto) 0.0 % 05/30/24 08:10 Baso % (Auto) 0.2 % 05/30/24 08:10 Neut # (Auto) 17.47 10^3/uL (1.8-7.7) H 05/30/24 08:10 Lymph # (Auto) 5.5 10^3/uL (0.8-4.8) H 05/30/24 08:10 Stanton # (Auto) 1.3 10^3/uL (0.2-0.9) H 05/30/24 08:10 Eos # (Auto) 0.0 10^3/uL (0.0-0.8) 05/30/24 08:10 Baso # (Auto) 0.0 10^3/uL (0.0-0.1) 05/30/24 08:10 Nucleated RBC % (auto) 0 % 05/30/24 08:10 Nucleated RBCs # 0.0 /100WBC 05/30/24 08:10 Specimen Type Arterial 05/30/24 08:09 Sample Site Radial, left 05/30/24 08:09 ABG pH 7.15 (7.35-7.45) L* 05/30/24 08:09 ABG pCO2 48.8 mmHg (35-45) H 05/30/24 08:09 ABG pO2 70.9 mmHg (80.0-100.0) L 05/30/24 08:09 ABG PO2/FiO2 Ratio 177 05/30/24 08:09 ABG HCO3 17.0 mmol/L (22-26) L 05/30/24 08:09 ABG O2 Saturation 89.1 05/30/24 08:09 ABG Base Excess -11.9 mmol/L (-2.0-2.0) L 05/30/24 08:09 Oral Test Pos 05/30/24 08:09 A-a O2 Gradient 20.2 mmHg (5-10) H 05/30/24 08:09 Hematocrit 46.2 % (42-52) 05/30/24 08:09 Hgb O2 Saturation 88.3 % (95-100) L 05/30/24 08:09 Carboxyhemoglobin 0.8 %THgb (0.4-20.1) 05/30/24 08:09 Methemoglobin 0.1 % (0.4-1.5) L 05/30/24 08:09 Total Hemoglobin 15.1 g/dL (14-18) 05/30/24 08:09 Sodium 136.0 mmol/L (131-143) 05/30/24 08:09 Potassium 5.1 mmol/L (3.5-5.0) H 05/30/24 08:09 Glucose 503.0 mg/dL (70-115) H 05/30/24 08:09 Ionized Calcium 1.2 mmol/L (1.1-1.4) 05/30/24 08:09 O2 Delivery Device Nc 05/30/24 08:09 O2 Liters/Min 5.0 % 05/30/24 08:09 FiO2 40.0 % 05/30/24 08:09 Barrel Burner ID Amh 05/30/24 08:09 Sodium 135 mmol/L (136-145) L 05/30/24 08:10 Potassium 4.9 mmol/L (3.5-5.1) 05/30/24 08:10 Chloride 102 mmol/L (98-107) 05/30/24 08:10 Carbon Dioxide 16 mmol/L (22-29) L 05/30/24 08:10 Anion Gap 21.9 (5-19) H 05/30/24 08:10 BUN 38 mg/dL (8-23) H 05/30/24 08:10 Creatinine 1.6 mg/dL (0.7-1.2) H 05/30/24 08:10 GFR Calculation 43.9 mL/min (90-130) L 05/30/24 08:10 Glucose 493 mg/dL (65-115) H 05/30/24 08:10 POC Glucose 431 mg/dL (70-110) H 05/30/24 08:52 Calculated Osmolality 311 mOsm/kg (285-295) H 05/30/24 08:10 Lactic Acid 5.8 mmol/L (0.5-2.2) H* 05/30/24 08:10 Calcium 9.1 mg/dL (8.5-10.5) 05/30/24 08:10 Total Bilirubin 0.4 mg/dL (0.15-1.2) 05/30/24 08:10 AST 25 U/L (0-40) 05/30/24 08:10 ALT 26 U/L (0-41) 05/30/24 08:10 Alkaline Phosphatase 87 U/L (40-130) 05/30/24 08:10 Troponin T Baseline 33 ng/L (0-15) H 05/30/24 08:10 C-Reactive Protein 3.0 mg/L (0.0-4.9) 05/30/24 08:10 NT-Pro-B Natriuret Pep 8038 pg/mL (0-125) H 05/30/24 08:10 Total Protein 6.9 g/dL (6.6-8.7) 05/30/24 08:10 Albumin 3.9 g/dL (3.5-5.2) 05/30/24 08:10 Globulin 3.0 g/dL (1.3-4.6) 05/30/24 08:10 Serum Ketones Negative (Negative) 05/30/24 08:10 All radiology interpretation(s) finalized by discharge Discharge Plan Discharge Patient Disposition: Admitted As Inpatient Admit Provider: Elijah Renee Clinical Impression: Acute exacerbation of CHF (congestive heart failure), Acute exacerbation of chronic obstructive pulmonary disease, Acute hypoxemic respiratory failure, Acute lactic acidosis, Acute renal insufficiency, Hyperglycemia Leukocytosis Qualifiers: Leukocytosis type: unspecified Qualified Code(s): D72.829 - Elevated white blood cell count, unspecified Chronic endocarditis Qualifiers: Endocarditis type: infective Infective endocarditis organism: bacterial Q ualified Code(s): I33.0 - Acute and subacute infective endocarditis Condition: Stable Coding Level of Care Code [employer]
[2024-05-30 08:17] LABS: Basophils % 0.2 %; Hematocrit 45.6 % (37-53); Lymphocytes # 5.5 10^3/uL (0.8-4.8); Lymphocytes % 22.4 %; Mean Corpuscular HGB Conc 32.5 g/dL (30-55); Mean Corpuscular Hemoglobin 30.2 pg (27-33); Mean Corpuscular Volume 93.1 fl (82-101); Mean Platelet Volume 11.9 fL (7.4-10.4); Monocytes # 1.3 10^3/uL (0.2-0.9); Monocytes % 5.5 %; Neutrophils # 17.47 10^3/uL (1.8-7.7); Neutrophils % 71.2 %; Nucleated Red Blood Cells % 0 %; Platelet Count 240 10^3/cmm (157-399); Red Cell Distribution Width 16.6 % (12.1-15.1); White Blood Count 24.51 10^3/uL (3.29-11.43)
[2024-05-30] MEDS: methylPREDNISolone sod succ 125 mg/2 mL INJ IVP (08:19)
[2024-05-30 08:20] LABS: ABG PCO2 48.8 mmHg (35-45); Alveolar-Arterial Oxygen Gradi 20.2 mmHg (5-10); Arterial Blood Gas Hematocrit 46.2 % (42-52); Base Excess ABG -11.9 mmol/L (-2.0-2.0); Blood Gas Allen Test Pos; Blood Gas Operator Identificat AMH; Blood Gas Sample Site Radial, left; Blood Gas Sample Type Arterial; Carboxyhemoglobin 0.8 %THgb (0.4-20.1); HGB O2 Sat 88.3 % (95-100); Ionized Calcium Level - ABG 1.2 mmol/L (1.1-1.4); Methemoglobin 0.1 % (0.4-1.5); Oxygen Device NC; Oxygen Saturation ABG 89.1; PO2 ABG 70.9 mmHg (80.0-100.0); PO2 FiO2 Ratio Arterial Blood 177; Potassium Level - ABG 5.1 mmol/L (3.5-5.0); Total Hemoglobin 15.1 g/dL (14-18)
[2024-05-30 08:21] LABS: ABG PH Result 7.15 (7.35-7.45)
[2024-05-30 08:30] LABS: Slide Review Slide Review Perform
[2024-05-30 08:38] LABS: Troponin(5th) Baseline 33 ng/L (0-15)
[2024-05-30] MEDS: FUROsemide 10 mg/mL SDV 10mL 80 MG IVP (08:45)
[2024-05-30 08:48] LABS: Alanine Aminotransferase 26 U/L (0-41); Albumin Level 3.9 g/dL (3.5-5.2); Alkaline Phosphatase 87 U/L (40-130); Anion Gap 21.9 (5-19); Aspartate Amino Transferase 25 U/L (0-40); Blood Urea Nitrogen 38 mg/dL (8-23); Calcium 9.1 mg/dL (8.5-10.5); Carbon Dioxide 16 mmol/L (22-29); Chloride 102 mmol/L (98-107); Glomerular Filtration Rate 43.9 mL/min (90-130); Glucose 493 mg/dL (65-115); NT Pro B Type Natriuretic Pept 8038 pg/mL (0-125); Osmolality Calculated 311 mOsm/kg (285-295); Potassium 4.9 mmol/L (3.5-5.1); Sodium 135 mmol/L (136-145); Total Bilirubin 0.4 mg/dL (0.15-1.2); Total Protein 6.9 g/dL (6.6-8.7)
[2024-05-30 08:55] LABS: Glucose Point of Care 431 mg/dL (70-110)
[2024-05-30 09:06] LABS: Ketone (Acetest) Serum Negative (Negative); Lactic Sepsis W/Reflex 5.8 mmol/L (0.5-2.2)
[2024-05-30] MEDS: cefepime 2,000 MG in sodium chloride 0.9% (plus) 50 ML 100 MG IV (09:29)
[2024-05-30] MEDS: insulin regular-human 100 units/1 mL 10 UNIT IVP (09:29)
[2024-05-30 10:01] LABS: Reflex Lactate Order REFLEX LACTIC ORDERD
--- NOTE | 2024-05-30 10:04 | ECG_ITS ---
[facility] Test Date: 2024-05-30 Pat Name: Amrik Alexander Department: Room: Gender: Male Colorman: : 1960 Requested By: Leona Estrada Order Number: [id number] Haja MD: Joaquin Nayak M.D. Measurements Intervals [place] Rate: 87 P: 47 [place]: 183 QRS: 197 QRSD: 176 T: 37 QT: 409 QTc: 495 Interpretive Statements ELECTRONIC VENTRICULAR PACEMAKER ABNORMAL RHYTHM ECG Compared to ECG 05/30/2024 08:00:18 No significant changes Electronically Signed On 05-30-2024 15:29:27 CDT by Joaquin Nayak M.D. [email or web address]
[2024-05-30 10:37] LABS: Bacteria Urine TRACE /hpf; Bilirubin Urine Neg (Negative); Blood Urine Trace (Negative); Glucose Urine UA 4+ (Normal); Ketones Urine Negative (Negative); Leukocyte Esterase Urine Negative (Negative); Nitrate Urine Negative (Negative); Protein Urine Trace (Negative); RBC Urine 0-4 /hpf (0-2); Squamous Epithelial Cell Urine 0-4 /hpf (0-5); Urine Appearance Clear (CLEAR); Urine Color Yellow (Yellow); Urobilinogen Urine Norm (Negative); pH Urine 5 (5-7)
[2024-05-30 10:38] LABS: Add Urine Culture? No
[2024-05-30] MEDS: linezolid premix 600 MG/300 ML PREMIX 300 MG IV ×2 (11:05→22:57)
[2024-05-30 12:29] LABS: Magnesium 2.1 mg/dL (1.7-2.3)
[2024-05-30] MEDS: pantoprazole 40 mg SDV IVP ×2 (12:36→22:57)
[2024-05-30] MEDS: vancomycin 125 mg Capsule PO ×3 (12:37→20:32)
[2024-05-30] MEDS: insulin lispro 100 unit/1 mL SUBCUT ×3 (12:37→20:32)
--- NOTE | 2024-05-30 14:00 | ECG_ITS ---
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 Measurements Intervals [place] Rate: 70 P: 87 [place]: 168 QRS: 196 QRSD: 200 T: 41 QT: 453 QTc: 489 Interpretive Statements ELECTRONIC ATRIAL PACEMAKER ELECTRONIC VENTRICULAR PACEMAKER ABNORMAL RHYTHM ECG Compared to ECG 05/30/2024 10:04:31 No significant changes Electronically Signed On 05-31-2024 9:23:07 CDT by Joaquin Nayak M.D. [id number]
--- NOTE | 2024-05-30 14:15 | PM.HP ---
Providers/Chief Complaint Admitting Physician: Elijah Renee Primary Care Provider: ANDRES Pettit Chief Complaint: SOB History of Present Illness Pleasant 63-year-old gentleman with history of nonischemic cardiomyopathy, EF 10-15%, history of CAD, PPM, COPD, DM 2, ALBERTO, GERD, endocarditis with pacemaker lead infection, heart, not found to be a safe candidate for explantation, on chronic antibiotic suppression, presented to the ER today after waking up feeling unwell, with malaise, shortness of breath, cough, in ER found to be newly hypoxic with respiratory failure newly requiring 6 L of oxygen, and had to be started on BiPAP, with tachypnea, tachycardia, heart rates in the low 100s, leukocytosis 24.5, ABG 7.5/48.8/70.9/17, with JACIEL, creatinine 1.6, lactic acid 5.8, NT proBNP 8038, peripheral edema, chest x-ray with bibasilar hazy opacity and prominent interstitial lung markings, finding consistent with pulmonary congestion, overlying infiltrate not excluded. Higher level of care was offered for services including cyber systems operations specialist and severity of his illness and underlying comorbidities, however, as per discussion of ER physician with patient and family was declined and they preferred admission here. His also reports that on the way to the hospital he had an episode of diarrhea. He does carry a history of C. difficile. Review of Systems Const: Reports: malaise; Denies: fever(s), chills or body aches ENMT: Denies: throat pain Card: Reports: edema; Denies: chest pain, pre-syncope or dyspnea on exertion Resp: Reports: dyspnea and productive cough; Denies: change in phlegm color or hemoptysis GI: Reports: diarrhea; Denies: abdominal pain, nausea, vomiting, constipation, hematochezia or melena : Denies: flank pain, difficulty urinating, urinary frequency or hematuria Musc: Denies: back pain, joint swelling or joint redness Skin/Breast: Reports: other (Some redness of his dorsal hands, worse on the right); Denies: rash or new lesions Neuro: Denies: headache(s) Endo: Denies: polyuria or polydipsia Medications/Allergies Home Medications Medication Instructions Recorded Confirmed Last Taken Type blood-glucose meter (Blood Glucose #1 ea 07/06/20 05/28/24 Unknown Rx Monitoring kit) albuterol sulfate 90 mcg/actuation 2 puff inhalation Q6H PRN 05/20/22 05/28/24 04/06/23 Rx aerosol inhaler (ProAir HFA) shortness of breath or wheezing #18 grams nebulizer machine with tubing and #1 ea 09/09/22 05/28/24 Unknown Rx mask lancets 33 gauge (BD Ultra Fine #100 ea 12/05/22 05/28/24 Unknown Rx Lancets) [id number] acid-vit 1 tab PO DAILY 04/07/23 05/28/24 11/17/23 History K-lycop 400 mcg-20 mcg-370 mcg tablet (Men's 50 Plus Multivitamin) albuterol sulfate 2.5 mg/3 mL 2.5 mg (3 mL) inhalation QID PRN 06/10/23 05/28/24 Unknown Rx (0.083 %) solution for nebulization shortness of breath or wheezing #180 mL fluticasone propionate 50 2 spray intranasal DAILY PRN 08/17/23 05/28/24 Unknown History mcg/actuation nasal Allergy Symptoms spray,suspension (Flonase Allergy Relief) clopidogrel 75 mg tablet 75 mg PO DAILY #30 tabs 11/20/23 05/28/24 Unknown Rx sacubitril 97 mg-valsartan 103 mg 1 tab PO BID 11/21/23 05/28/24 Unknown History tablet (Entresto) omega 1-yfc-lsu-fish oil 300 1 cap PO DAILY #90 caps 12/08/23 05/28/24 Unknown Rx mg-1,000 mg capsule (Fish Oil) allopurinol 300 mg tablet 300 mg PO QAM #90 tabs 01/19/24 05/28/24 Unknown Rx carvedilol 25 mg tablet 25 mg PO BID 90 days #180 tabs 01/19/24 05/28/24 Unknown Rx dapagliflozin propanediol 10 mg 10 mg PO DAILY 02/27/24 05/28/24 Unknown History tablet (Farxiga) rosuvastatin 40 mg tablet 40 mg PO BEDTIME 02/27/24 05/28/24 Unknown History levocetirizine 5 mg tablet (Xyzal) 5 mg PO DAILY PRN allergies 03/08/24 05/28/24 Unknown History magnesium L-lactate 84 mg 84 mg PO DAILY 03/08/24 05/28/24 Unknown History tablet,extended release potassium citrate 10 mEq (1,080 20 meq PO BID 03/08/24 05/28/24 Unknown History mg) tablet,extended release amiodarone 400 mg tablet 400 mg PO DAILY 03/25/24 05/28/24 Unknown History ceftriaxone 2 gram intravenous 1 g IV DAILY 03/25/24 05/28/24 Unknown History solution daptomycin 500 mg intravenous 640 mg IV DAILY 03/25/24 05/28/24 Unknown History solution furosemide 20 mg tablet 20 mg PO DAILY 03/25/24 05/28/24 Unknown History furosemide 20 mg tablet (Lasix) 20 mg PO DAILY PRN 03/25/24 05/28/24 Unknown History polyethylene glycol 3350 17 4 g PO DAILY 03/25/24 05/28/24 Unknown History gram/dose oral powder (Miralax) CPAP (Standard Cpap) #1 ea 04/09/24 05/28/24 Unknown Rx apixaban 5 mg tablet (Eliquis) 5 mg PO BID #180 tabs 04/14/24 05/28/24 Unknown Rx spironolactone 25 mg tablet 25 mg PO DAILY #90 tabs 04/14/24 05/28/24 Unknown Rx insulin glargine 100 unit/mL (3 25 unit (0.25 mL) SUBCUT BEDTIME 04/22/24 05/28/24 Unknown Rx mL) subcutaneous pen (Lantus #15 mL Solostar U-100 Insulin) pantoprazole 40 mg tablet,delayed 40 mg PO BID #60 tabs 04/22/24 05/28/24 Unknown Rx release (Protonix) amiodarone 400 mg tablet 400 mg PO DAILY #90 tabs 05/10/24 05/28/24 Unknown Rx blood sugar diagnostic (Blood #100 ea 05/10/24 05/28/24 Unknown Rx Glucose Test strips) sertraline 100 mg tablet 100 mg PO QAM #30 tabs 05/18/24 05/28/24 Unknown Rx clindamycin HCl 300 mg capsule 300 mg PO TID 7 days #21 caps 05/27/24 05/28/24 Unknown Rx Allergies Allergy/AdvReac Type Severity Reaction Status Date / Time isosorbide Allergy unknown Verified 05/30/24 08:06 Penicillins AdvReac rash Verified 05/30/24 08:06 PFSH Acute PFSH: Medical History Cardiac resynchronization therapy defibrillator ([employer]NICIAN-D) in place [employer] [address]. [place], 07/11/2020 Cardiomyopathy Mixed hyperlipidemia Hypertension CVA (cerebral vascular accident) PVCs (premature ventricular contractions) Hypomagnesemia Infarction of spleen Type 2 diabetes mellitus Nausea & vomiting Gastroparesis COPD (chronic obstructive pulmonary disease) Major depressive disorder, recurrent episode, mild degree Major depressive disorder in partial remission Allergic rhinitis Bipolar II disorder Diabetes Non-ST elevation VA (NSTEMI) Uses bilevel positive airway pressure (BPAP) ventilation at home 12/8cm Dysarthria Unstable angina Nonischemic congestive cardiomyopathy Chronic low back pain Elevated blood uric acid level History of sleep study 2017 at [facility]: Optimal pressure settings with BiPAP found to be 12/8 cm COVID-19 Wound infection following procedure infection with defibrillator lead revision, removed , scarring left subclavian area from this GERD (gastroesophageal reflux disease) ALBERTO (obstructive sleep apnea) C. difficile diarrhea Cataracts, bilateral CHF (congestive heart failure) Urolithiasis Multi stone former, calcium oxalate mono and dihydrate. Also calcium phosphate. Multiple interventions including endoscopy with laser lithotripsy and ESWL. Metabolic treatment with potassium citrate Hemorrhoids Psychiatric care Right ureteral calculus Osteoarthritis of hands, bilateral Pacemaker Surgical History S/P epidural steroid injection Status post hemorrhoidectomy Hx of umbilical hernia repair Hx of lithotripsy History of urethral stent H/O esophagogastroduodenoscopy (02/27/21) gastritis, duodenitis History of colonoscopy (02/27/21) descending colon polyp, hemorrhoids History of carpal tunnel release of both wrists History of permanent cardiac pacemaker placement Hx of cataract surgery Hx of shoulder surgery Family History Grandfather CAD (coronary artery disease) Brother Cancer colon cancer Diabetes Mother Diabetes Father No problems noted. Other Hypertension Rheumatoid arthritis Social History Smoking and tobacco/nicotine status: never used tobacco/nicotine Second hand smoke exposure: No Alcohol intake: former Year of sobriety/quit date alcohol: 1997 Substance/Drug Use: former Date of last use: 1997 Caregiver/support person: Yes Lives independently: Yes Household members: spouse Marital status: service: No Current occupational status: disabled Current gender identity: Male Special fernando needs: No Agree to transfusion: Yes Vitals/I&O/Wt Last Vital Signs Temp 97.5 F L 05/30/24 07:57 Pulse 71 05/30/24 13:15 Resp 23 H 05/30/24 13:15 BP 179/130 05/30/24 12:55 Pulse Ox 95 05/30/24 13:15 O2 Del Method BiPAP 05/30/24 13:15 O2 Flow Rate 6 05/30/24 08:29 FiO2 40 05/30/24 13:15 05/29/24 05/30/24 05/30/24 22:59 06:59 14:59 Intake Total 380 / 380 Balance 380 / 380 Weight last 48 hrs Weight 112.718 kg Physical Exam Narrative: His and another family member came to bedside. Const: COMMON NORMALS: patient oriented x3 and alert GENERAL APPEARANCE: cooperative ORIENTATION/CONSCIOUSNESS: Yes awake HENMT: COMMON NORMALS: oropharynx normal Neck/C-Spine: COMMON NORMALS: no JVD Resp: EFFORT & INSPECTION: Yes tachypneic OTHER: Coarse breath sounds. Diminished. Cardio: COMMON NORMALS: no JVD, regular rhythm, S1 normal heart sound present, S2 normal heart sound present and No murmurs present (Cardio) RHYTHM: regular rhythm HEART SOUNDS: S1 normal heart sound present and S2 normal heart sound present GI: COMMON NORMALS: Normal to inspection, nondistended, normoactive bowel sounds present, Soft to palpation and non-tender PALPATION: Yes Soft to palpation Extremity: COMMON NORMALS: no joint enlargement and no pedal edema Neuro: COMMON NORMALS: patient oriented x3 and moves all extremities SENSORIUM/ORIENTATION: Yes alert Skin: COMMON NORMALS: no rashes or lesions noted GENERAL SKIN EXAM: no rashes or lesions noted Urinary Catheter Management: Arredondo: Cath Placed During This Visit: yes Urinary Catheter Date of Insertion: 05/30/24 Sepsis: Is patient septic: Yes Focused sepsis exam: Extremities cool to touch, without cyanosis or mottling. Date exam was performed: 05/30/24 Time exam was performed: 11:00 Data 05/30/24 08:10 05/30/24 08:10 Micro: Microbiology 05/30/24 08:50 Blood Culture - Preliminary Blood SPECIMEN COLLECTED A&P Assessment and plan (1) Sepsis: Presenting with malaise, shortness of breath, cough, in ER with concern for sepsis with leukocytosis, tachycardia, tachypnea, lactic acidosis, suspected pneumonia. JACIEL. Also reporting diarrhea with history of C. difficile. Reviewed vitals, CBC, ABG, CMP, lactic acid, magnesium, CRP, troponin, UA, chest x-ray, EKG, ER provider note, discussed with ER provider. Discussed with patient and his family. Congestive changes noted in the lungs on chest x-ray, although cannot exclude infiltrate, with possible pneumonia with cough, shortness of breath, tachypnea, leukocytosis. Additionally diarrhea, metabolic acidosis, JACIEL, history of C. difficile. Possible severe C. difficile colitis with leukocytosis 24.51, JACIEL 1.6. Blood cultures collected, requesting C. difficile, received cefepime, linezolid, continue empiric antibiotic coverage. Empiric oral vancomycin 125 mg 4 times a day. Additionally assess with noncontrast CT chest abdomen pelvis in the setting of JACIEL. Additionally with endocarditis and chronic antibiotic suppression with clindamycin, hold for now. Request records from [facility]. Blood culture has been collected. PPI prophylaxis and for GERD. On Eliquis with history of left ventricular thrombus, switch to Lovenox while in the hospital. Monitor for risk of bleeding, renal function. (2) Acute exacerbation of CHF (congestive heart failure): Acute systolic and diastolic decompensated CHF. Received 80 mg IV Lasix. Congestive changes on chest x-ray, peripheral edema, underlying severely decreased ejection fraction, 10 to 15%. Peripheral edema. NT proBNP 8038. Continue IV diuretics with IV Lasix 40 mg twice daily, monitor CATHLEEN, kidney function with risk of JACIEL, electrolyte abnormality. Monitor weights. With congestive heart failure, new respiratory failure, obtain limited TTE. Complete troponin series. Monitor on telemetry with risk of life-threatening arrhythmia. Has an AICD device. He is currently hypertensive, blood pressure 159/106, with peripheral vasoconstriction, giving 5 mg IV hydralazine. Cautiously repeat to try to bring down the blood pressure, her, also risk of significant hypotension and complications in setting of severely decreased ejection fraction. Treatment in the intensive care unit. Repeat 5 mg hydralazine IV. Discussed with him and his regarding current medical problems and severity of underlying conditions, concern regarding risk of severe comorbidities including with advanced cardiomyopathy with very low ejection fraction. (3) Respiratory failure: Newly requiring 6 L of oxygen on presentation, but with some increase in work of breathing switched over to BiPAP on which she has been much more comfortable. Getting some rest. Secondary to CHF decompensation as well as suspected community-acquired pneumonia. Continue cefepime, linezolid. Diuretics as above. NIPPV support, wean down as tolerating. Oxygen support. Continue anticoagulation. Received a dose of Solu-Medrol for possible component of COPD on presentation. Continue breathing treatments. Add PRNs. With endocarditis hold off systemic steroids, will give inhaled budesonide. (4) JACIEL (acute kidney injury): JACIEL, creatinine up to 1.6. Possibly related to sepsis, versus decompensation of congestive heart failure. He is not hypotensive at current time. Hold dapagliflozin, Entresto. Check CK. Assess ultrasound of kidneys and bladder. (5) Hyperglycemia: States has missed some doses of medication including Flonase.. She also did not take his insulin. Resumed Lantus at 15 units daily starting today, add Accu-Cheks, sliding scale insulin. Consistent carb diet once resumed. Plan Nonischemic cardiomyopathy, EF 10-15%, Endocarditis with pacemaker lead infection, heart, not found to be a safe candidate for explantation, on chronic antibiotic suppression CAD, PPM, COPD, DM 2, POC glucose, Lantus, sliding scale insulin. ALBERTO, GERD, PPI Medical records requested from [facility]. Requesting to confirm home medications, please review and resume once available. Attestations Medical Necessity Statement*: Admission of over 2 midnights anticipated for assessment of management of sepsis, decompensated systolic and diastolic CHF, JACIEL, respiratory failure and gentleman with underlying severe nonischemic cardiomyopathy EF 10-50%, COPD and additional comorbidities as above. Coding Level of Care Code Critical Care >/= 30 minutes Critical care time (in minutes): 45 The high probability of a clinically significant, sudden or life threatening deterioration, as referenced in this documentation, required my full and direct attention, intervention and personal management. The critical care time shown is in addition to time spent performing any reported separately billable procedures and includes the following: [x] Data and vital sign review and interpretation [x] Patient assessment, examination and intervention [x] Medication orders and management [x] Patient/Family updates as able [x] Care Coordination and Documentation. Diagnoses Sepsis A41.9 Acute exacerbation of CHF (congestive heart failure) I50.9 Respiratory failure J96.90 JACIEL (acute kidney injury) N17.9 Hyperglycemia R73.9
[2024-05-30] MEDS: hyDRALAzine 20 mg/mL INJ 1 mL 2.5 MG IVP (14:16)
--- NOTE | 2024-05-30 14:24 | CTR_ITS ---
PROCEDURE INFORMATION: Exam: CT Chest Without Contrast; Diagnostic Exam date and time: 05/30/2024 4:04 PM Age: 63 years old Clinical indication: Other: Sepsis, diarrhea TECHNIQUE: Imaging protocol: Diagnostic computed tomography of the chest without contrast. Radiation optimization: All CT scans at this facility use at least one of these dose optimization techniques: automated exposure control; mA and/or kV adjustment per patient size (includes targeted exams where dose is matched to clinical indication); or iterative reconstruction. COMPARISON: CT lung screening [id number] 02/05/2024 10:27 AM RADIATION DOSE METRICS: Total DLP (mGy-cm): 1294.58 FINDINGS: Tubes, catheters and devices: Triple lead pacemaker is in satisfactory position. Lungs: There are consolidations in the posterior segment of the right upper lobe and bilateral lower lobes and to a lesser extent posterior segment of the left upper lobe. Pleural spaces: Bilateral pleural effusions. Heart: Cardiomegaly. Coronary arteries: Moderate coronary calcifications. Lymph nodes: Unremarkable. No enlarged lymph nodes. Vasculature: Unremarkable. No aortic aneurysm. Bones/joints: Bridging anterior osteophytes of the thoracic spine, consistent with DISH. Soft tissues: Unremarkable. PROCEDURE INFORMATION: Exam: CT Abdomen And Pelvis Without Contrast Exam date and time: 05/30/2024 4:04 PM Age: 63 years old Clinical indication: Other: Sepsis, diarrhea TECHNIQUE: Imaging protocol: Computed tomography of the abdomen and pelvis without contrast. Radiation optimization: All CT scans at this facility use at least one of these dose optimization techniques: automated exposure control; mA and/or kV adjustment per patient size (includes targeted exams where dose is matched to clinical indication); or iterative reconstruction. COMPARISON: CT abdomen pelvis w con* [id number] 03/07/2024 10:50 PM RADIATION DOSE METRICS: Total DLP (mGy-cm): 1294.58 FINDINGS: Liver: Normal. No mass. Gallbladder and biliary ducts: Normal. No calcified stones. No ductal dilation. Pancreas: Normal. No ductal dilation. Spleen: There is a hypodense lesion in the spleen measuring 7.7 x 8.7 x 9.2 cm, not fully characterized on the current study. This is at the area of the previously described wedge-shaped hypoenhancement in the spleen. Adrenal glands: Normal. No mass. Kidneys and ureters: There is a 9 mm nonobstructing stone in the lower pole of the left kidney. No hydronephrosis on either side. Stomach and bowel: Unremarkable. No obstruction. No mucosal thickening. Appendix: No evidence of appendicitis. Intraperitoneal space: Unremarkable. No free air. No significant fluid collection. Vasculature: Pelvic phleboliths. There are vascular calcifications. Lymph nodes: Unremarkable. No enlarged lymph nodes. Urinary bladder: Arredondo catheter in the bladder which is underdistended. Reproductive: Unremarkable as visualized. Bones/joints: Degenerative disease of bilateral sacroiliac joints and symphysis pubis. Mild degenerative disease of bilateral hip joints. Multilevel anterior osteophytes of the lumbar spine. Soft tissues: Bilateral fat containing inguinal hernias. CT/[place] [id number] IMPRESSION: Multilobar pneumonia with bilateral pleural effusions. IMPRESSION: 1. No acute intra-abdominal process. 2. Hypodense lesion in the spleen not fully characterized on current study and needs follow-up with an enhanced CT scan or MRI.
[2024-05-30] MEDS: insulin glargine 100 units/1 mL 15 UNIT SUBCUT (14:45)
[2024-05-30] MEDS: hyDRALAzine 20 mg/mL INJ 1 mL 5 MG IVP ×2 (14:47→16:50)
--- NOTE | 2024-05-30 15:37 | USCV_ITS ---
Amrik Alexander Age: 63 Gender: M : 1960 Exam Date: 05/30/2024 17:39 Ordering Phys: Elijah Renee MD Technologist: Rafi Limon [place] [facility] [place]: chf BP: 128 / 77 HR: Rhythm: Sinus Technical Quality: Suboptimal MEASUREMENTS (Male / Female) Normal Values 2D ECHO LV Diastolic Diameter PLAX 5.2 cm 4.2 - 5.9 / 3.9 - 5.3 cm IVS Diastolic Thickness 1.6 cm 0.6 - 1.0 / 0.6 - 0.9 cm IVS Systolic Thickness 1.7 cm LVPW Diastolic Thickness 2.1 cm 0.6 - 1.0 / 0.6 - 0.9 cm LVPW Systolic Thickness 1.9 cm LVOT Diameter 2.2 cm LV Ejection Fraction 2D Teich 10.9 % LV Ejection Fraction MOD 4C 19.1 % LV Ejection Fraction MOD 2C 30.1 % LV Ejection Fraction 2C AL 29.5 % LA Diameter 4.9 cm RA Systolic Volume 4C AL 58.4 ml RA Systolic Volume 4C MOD 58.0 ml Aorta at Sinotubular Diameter 2.4 cm IVC Diameter 2.5 cm M-MODE LA Ao Ratio MM 1.7 AV Cusp Separation MM 1.9 cm FINDINGS Left Ventricle Two-dimensional examination only. No M-mode or Doppler. The ventricle is mildly to moderately dilated. There are regional wall motion disturbances. The anterior wall, apex, septum are all akinetic. The remainder of the ventricle exhibits moderate to severe hypokinesis. The ejection fraction is about 15% Right Ventricle Normal right ventricular size and systolic function. There may be a pacemaker or defibrillator wire in the right ventricle. Right Atrium The right atrium is normal in size. Left Atrium The left atrium is normal in size. Mitral Valve Structurally normal mitral valve. Aortic Valve Structurally normal trileaflet aortic valve. Mild aortic valve calcification. Tricuspid Valve Structurally normal tricuspid valve. Pulmonic Valve Pulmonic valve not well visualized. Pericardium Normal pericardium without effusion. Aorta Normal ascending aorta dimension. IVC The inferior vena cava appears normal. CONCLUSIONS Two-dimensional examination only. No M-mode or Doppler. The ventricle is mildly to moderately dilated. There are regional wall motion disturbances. The anterior wall, apex, septum are all akinetic. The remainder of the ventricle exhibits moderate to severe hypokinesis. The ejection fraction is about 15% Structurally normal trileaflet aortic valve. Mild aortic valve calcification. Patient has had multiple previous echoes in the last few months. There has been no change. Dr. Joaquin Nayak MD (Electronically Signed) Final Date: 31 May 2024 08:00 S
--- NOTE | 2024-05-30 16:45 | USR_ITS ---
PROCEDURE INFORMATION: Exam: US Retroperitoneal; Complete; Kidneys and Bladder Exam date and time: 05/30/2024 5:24 PM Age: 63 years old Clinical indication: Other: Dave TECHNIQUE: Imaging protocol: Real-time ultrasound of the retroperitoneum with image documentation. Complete exam focused on the kidneys and bladder. COMPARISON: US abdomen complete* [id number] 01/14/2024 9:31 AM FINDINGS: Right kidney: Normal. No stones. No hydronephrosis. The right kidney measures 9.7 x 5.9 x 5.7 cm with the renal cortex measuring 1.1 cm. Left kidney: Normal. 9 mm nonobstructing stone in the lower pole of the left kidney. No hydronephrosis. The left kidney measures 9.3 x 6 x 5.2 cm with renal cortex measuring 1.1 cm. Urinary bladder: Catheter in the bladder. US/US renal BI* [id number] IMPRESSION: 1. No hydronephrosis on either side. 2. Nonobstructing stone in the lower pole of the left kidney measuring 9 mm.
[2024-05-30 17:09] LABS: Glucose Point of Care 433 mg/dL (70-110)
[2024-05-30 17:09] LABS: Glucose Point of Care 340 mg/dL (70-110)
[2024-05-30] MEDS: enoxaparin 120 mg/0.8 mL Syringe 110 MG SUBCUT (17:13)
[2024-05-30 17:18] LABS: Creatine Phosphokinase 43 U/L (39-308)
[2024-05-30] MEDS: budesonide 0.5 mg/2 mL Neb INHALATION (20:14)
[2024-05-30 20:26] LABS: Glucose Point of Care 329 mg/dL (70-110)
[2024-05-31] VITALS (26 sets, daily range): BP systolic 112–140; BP diastolic 71–88; PULSE 70–75; RESP 15–27; TEMP 36.7–36.9; O2SAT 91–98
[2024-05-31 00:11] LABS: Troponin 5 2HR 46.12 ng/L (0-15)
[2024-05-31 00:14] LABS: Lactic Acid level (Lactate) 2.1 mmol/L (0.5-2.2); Troponin 5 2HR Delta 13.12 ABS# (0-10)
[2024-05-31] MEDS: ipratropium-albuterol 3 mL Neb INHALATION ×4 (01:40→20:54)
[2024-05-31 04:33] LABS: Basophils % 0.1 %; Hematocrit 39.5 % (37-53); Lymphocytes # 1.6 10^3/uL (0.8-4.8); Lymphocytes % 7.9 %; Mean Corpuscular HGB Conc 33.9 g/dL (30-55); Mean Corpuscular Volume 88.6 fl (82-101); Mean Platelet Volume 12.1 fL (7.4-10.4); Monocytes % 4.9 %; Neutrophils # 17.34 10^3/uL (1.8-7.7); Neutrophils % 86.7 %; Nucleated Red Blood Cells % 0 %; Platelet Count 191 10^3/cmm (157-399); Red Blood Count 4.46 10^6/uL (3.85-5.65); Red Cell Distribution Width 16.2 % (12.1-15.1); White Blood Count 20.02 10^3/uL (3.29-11.43)
[2024-05-31 04:55] LABS: Alanine Aminotransferase 26 U/L (0-41); Albumin Level 3.7 g/dL (3.5-5.2); Alkaline Phosphatase 77 U/L (40-130); Anion Gap 17.1 (5-19); Aspartate Amino Transferase 16 U/L (0-40); Blood Urea Nitrogen 43 mg/dL (8-23); Calcium 9.3 mg/dL (8.5-10.5); Carbon Dioxide 22 mmol/L (22-29); Chloride 102 mmol/L (98-107); Creatinine Clr Calc Pharmacy 63.6833; Globulin 2.6 g/dL (1.3-4.6); Glomerular Filtration Rate 51.2 mL/min (90-130); Glucose 206 mg/dL (65-115); Magnesium 1.9 mg/dL (1.7-2.3); Osmolality Calculated 301 mOsm/kg (285-295); Phosphorus 4.8 mg/dL (2.5-4.5); Potassium 4.1 mmol/L (3.5-5.1); Sodium 137 mmol/L (136-145); Total Bilirubin 0.5 mg/dL (0.15-1.2); Total Protein 6.3 g/dL (6.6-8.7)
[2024-05-31] MEDS: enoxaparin 120 mg/0.8 mL Syringe 110 MG SUBCUT ×2 (06:24→17:51)
[2024-05-31] MEDS: budesonide 0.5 mg/2 mL Neb INHALATION ×2 (07:47→20:54)
[2024-05-31] MEDS: FUROsemide 10 mg/mL SDV 4mL 40 MG IVP ×2 (08:02→20:19)
[2024-05-31] MEDS: insulin lispro 100 unit/1 mL SUBCUT ×4 (08:03→22:01)
[2024-05-31] MEDS: pantoprazole DR 40 mg Tablet PO ×2 (08:03→17:52)
[2024-05-31] MEDS: vancomycin 125 mg Capsule PO ×4 (08:03→20:18)
[2024-05-31] MEDS: clopidogrel 75 mg Tablet PO (08:03)
[2024-05-31] MEDS: amiodarone 200 mg Tablet 400 MG PO (08:03)
[2024-05-31] MEDS: insulin glargine 100 units/1 mL 15 UNIT SUBCUT (08:35)
[2024-05-31] MEDS: linezolid premix 600 MG/300 ML PREMIX 300 MG IV ×2 (09:10→22:01)
--- NOTE | 2024-05-31 09:49 | PM.PN ---
Subjective Subjective: History and physical reviewed. Patient reports much better this morning. Denies being short of breath. Currently on 2 L of oxygen. Medications: Reviewed: Yes Vitals/I&O/Wt Last Vital Signs Temp 98.1 F 05/31/24 08:00 Pulse 70 05/31/24 08:00 Resp 21 H 05/31/24 08:00 BP 138/88 05/31/24 08:00 Pulse Ox 95 05/31/24 08:00 O2 Del Method Nasal Cannula 05/31/24 07:49 O2 Flow Rate 3 05/31/24 07:49 FiO2 40 05/31/24 04:00 05/30/24 05/31/24 05/31/24 22:59 06:59 14:59 Intake Total 200 / 580 660 / 660 Output Total 1600 / 1600 740 / 2340 Balance -1400 / -1020 -740 / -1760 660 / 660 Weight last 48 hrs Weight 110.54 kg Weight 112.718 kg Physical Exam Narrative: General exam no distress Neck is supple Cardiovascular regular rate and rhythm with 2/6 systolic murmur Lungs clear but with diminished breath sounds at the bases Abdomen is soft Extremities no cyanosis clubbing edema, cap refill brisk Urinary Catheter Management: Arredondo: Cath Placed During This Visit: yes Reason for Continuing Indwelling Catheter: Accurate Measurement of Urinary Output in Critically Ill Patients Urinary Catheter Date of Insertion: 05/30/24 Data 05/31/24 03:10 05/31/24 03:10 Micro: Microbiology 05/30/24 08:50 Blood Culture - Preliminary Blood NEGATIVE TO DATE 05/30/24 23:33 Blood Culture - Preliminary Blood SPECIMEN COLLECTED A&P Assessment and plan (1) Sepsis: Presenting with malaise, shortness of breath, cough, in ER with concern for sepsis with leukocytosis, tachycardia, tachypnea, lactic acidosis, suspected pneumonia. JACIEL. Also reporting diarrhea with history of C. difficile. Reviewed vitals, CBC, ABG, CMP, lactic acid, magnesium, CRP, troponin, UA, chest x-ray, EKG, ER provider note, discussed with ER provider. Discussed with patient and his family. Congestive changes noted in the lungs on chest x-ray, although cannot exclude infiltrate, with possible pneumonia with cough, shortness of breath, tachypnea, leukocytosis. Additionally diarrhea, metabolic acidosis, JACIEL, history of C. difficile. Possible severe C. difficile colitis with leukocytosis 24.51, JACIEL 1.6. Blood cultures collected, requesting C. difficile, received cefepime, linezolid, continue empiric antibiotic coverage. Empiric oral vancomycin 125 mg 4 times a day. Additionally assess with noncontrast CT chest abdomen pelvis in the setting of JACIEL. Additionally with endocarditis and chronic antibiotic suppression with clindamycin, hold for now. Request records from [facility]. Blood culture has been collected. Blood cultures are pending. Awaiting old records. Patient is markedly better, and white blood cell count is decreasing. Does have evidence of pneumonia on CT scan, along with evidence on CT of fluid overload. He has not yet been able to give a sample for C. difficile. Continue oral vancomycin, IV linezolid and cefepime. Secondary to pneumonia check COVID PCR, MRSA PCR PPI prophylaxis and for GERD. On Eliquis with history of left ventricular thrombus, switch to Lovenox while in the hospital. Monitor for risk of bleeding, renal function. (2) Acute exacerbation of CHF (congestive heart failure): Acute systolic and diastolic decompensated CHF. Received 80 mg IV Lasix. Congestive changes on chest x-ray, peripheral edema, underlying severely decreased ejection fraction, 10 to 15%. Peripheral edema. NT proBNP 8038. Continue IV diuretics with IV Lasix 40 mg twice daily, monitor CATHLEEN, kidney function with risk of JACIEL, electrolyte abnormality. Monitor weights. With congestive heart failure, new respiratory failure, obtain limited TTE. Complete troponin series. Monitor on telemetry with risk of life-threatening arrhythmia. Has an AICD device. Today we will initiate 40 mg of Lasix IV every 12 hours. Recheck electrolytes in the morning. (3) Respiratory failure: Newly requiring 6 L of oxygen on presentation, but with some increase in work of breathing switched over to BiPAP on which she has been much more comfortable. Getting some rest. Secondary to CHF decompensation as well as suspected community-acquired pneumonia. C Overall improving, currently on 2 L of oxygen Continue budesonide, DuoNeb. (4) JACIEL (acute kidney injury): JACIEL, creatinine up to 1.6. Possibly related to sepsis, versus decompensation of congestive heart failure. He is not hypotensive at current time. Hold dapagliflozin, Entresto. No evidence of obstruction on ultrasound. CK not significantly elevated. Renal function improving. (5) Hyperglycemia: Continue current medication regimen. Initiate diet. Overall diabetes is stable. Plan Nonischemic cardiomyopathy, EF 10-15%, awaiting records from [facility] with pacemaker lead infection, heart, not found to be a safe candidate for explantation, on chronic antibiotic suppression CAD, stable PPM, COPD, stable DM 2, POC glucose, Lantus, sliding scale insulin. ALBERTO, GERD, PPI Transfer out of ICU today Discontinue Arredondo today Change Protonix to p.o. Resume statin Attestations Medical Necessity Statement*: Needs continued hospitalization for IV antibiotics for pneumonia, diuresis for congestive heart failure with low EF with cardiomyopathy, EF 15% Diagnoses Sepsis A41.9 Acute exacerbation of CHF (congestive heart failure) I50.9 Respiratory failure J96.90 JACIEL (acute kidney injury) N17.9 Hyperglycemia R73.9 Time Spent (min) 29
[2024-05-31 10:38] LABS: Adenovirus Not Detected (NOT DETECT); Chlamydia Pneumoniae Not Detected (NOT DETECT); Coronavirus 229E,HKU1,NL63,OC4 Not Detected (NOT DETECT); Human Metapneumovirus Not Detected (NOT DETECT); Human Rhinovirus/Enterovirus Not Detected (NOT DETECT); Influenza A Not Detected (NOT DETECT); Influenza A H1 Not Detected (NOT DETECT); Influenza A H1-2009 Not Detected (NOT DETECT); Influenza A H3 Not Detected (NOT DETECT); Influenza B Not Detected (NOT DETECT); Mycoplasma Pneumoniae Not Detected (NOT DETECT); Parainfluenza Virus Type 1 Not Detected (NOT DETECT); Parainfluenza Virus Type 2 Not Detected (NOT DETECT); Parainfluenza Virus Type 3 Not Detected (NOT DETECT); Parainfluenza Virus Type 4 Not Detected (NOT DETECT); Respiratory Syncytial Virus A Not Detected (NOT DETECT); Respiratory Syncytial Virus B Not Detected (NOT DETECT); SARS-COV-2 Not Detected (NOT DETECT)
[2024-05-31] MEDS: sertraline 100 mg Tablet PO (11:00)
[2024-05-31 11:03] LABS: Glucose Point of Care 188 mg/dL (70-110)
[2024-05-31 11:03] LABS: Glucose Point of Care 324 mg/dL (70-110)
--- NOTE | 2024-05-31 16:39 | PC.NURSE ---
Patient transferred to C[facility]
[2024-05-31 16:53] LABS: Glucose Point of Care 229 mg/dL (70-110)
--- NOTE | 2024-05-31 18:37 | PC.NURSE ---
received pt from icu at around 1309pm pt has urinal at bedside. per report, pt mckeon catheter has been dc in icu.
[2024-05-31 19:53] LABS: Glucose Point of Care 217 mg/dL (70-110)
[2024-05-31] MEDS: atorvastatin 40 mg Tablet 80 MG PO (20:18)
[2024-05-31] MEDS: cefepime 1,000 MG in sodium chloride 0.9% (plus) 50 ML 100 MG IV (20:19)
[2024-06-01] VITALS (9 sets, daily range): BP systolic 110–138; BP diastolic 66–95; PULSE 70–79; RESP 16–27; TEMP 36.1–36.6; O2SAT 90–95
[2024-06-01] MEDS: ipratropium-albuterol 3 mL Neb INHALATION ×2 (02:29→07:28)
[2024-06-01] MEDS: allopurinol 300 mg Tablet PO (05:40)
[2024-06-01] MEDS: sertraline 100 mg Tablet PO (05:40)
[2024-06-01] MEDS: enoxaparin 120 mg/0.8 mL Syringe 110 MG SUBCUT (05:40)
[2024-06-01 05:42] LABS: Basophils % 0.1 %; Eosinophils % 0.1 %; Hematocrit 40.6 % (37-53); Lymphocytes # 1.5 10^3/uL (0.8-4.8); Mean Corpuscular Hemoglobin 30.2 pg (27-33); Mean Corpuscular Volume 88.8 fl (82-101); Mean Platelet Volume 11.9 fL (7.4-10.4); Monocytes # 1.3 10^3/uL (0.2-0.9); Monocytes % 7.7 %; Neutrophils # 13.54 10^3/uL (1.8-7.7); Neutrophils % 82.5 %; Nucleated Red Blood Cells % 0 %; Platelet Count 189 10^3/cmm (157-399); Red Blood Count 4.57 10^6/uL (3.85-5.65); Red Cell Distribution Width 16.2 % (12.1-15.1); White Blood Count 16.41 10^3/uL (3.29-11.43)
[2024-06-01 06:01] LABS: Glucose Point of Care 216 mg/dL (70-110)
[2024-06-01 06:14] LABS: Alanine Aminotransferase 28 U/L (0-41); Albumin Level 3.9 g/dL (3.5-5.2); Alkaline Phosphatase 80 U/L (40-130); Anion Gap 18.2 (5-19); Aspartate Amino Transferase 18 U/L (0-40); Blood Urea Nitrogen 46 mg/dL (8-23); Calcium 9.2 mg/dL (8.5-10.5); Carbon Dioxide 24 mmol/L (22-29); Chloride 98 mmol/L (98-107); Creatinine Clr Calc Pharmacy 73.5696; Globulin 2.2 g/dL (1.3-4.6); Glomerular Filtration Rate 61.1 mL/min (90-130); Glucose 204 mg/dL (65-115); Magnesium 1.9 mg/dL (1.7-2.3); Osmolality Calculated 300 mOsm/kg (285-295); Potassium 4.2 mmol/L (3.5-5.1); Sodium 136 mmol/L (136-145); Total Bilirubin 0.7 mg/dL (0.15-1.2); Total Protein 6.1 g/dL (6.6-8.7)
[2024-06-01] MEDS: budesonide 0.5 mg/2 mL Neb INHALATION (07:29)
[2024-06-01] MEDS: cefepime 1,000 MG in sodium chloride 0.9% (plus) 50 ML 100 MG IV (08:09)
[2024-06-01] MEDS: insulin lispro 100 unit/1 mL SUBCUT (08:09)
[2024-06-01] MEDS: clopidogrel 75 mg Tablet PO (08:10)
[2024-06-01] MEDS: FUROsemide 10 mg/mL SDV 4mL 40 MG IVP (08:10)
[2024-06-01] MEDS: amiodarone 200 mg Tablet 400 MG PO (08:10)
[2024-06-01] MEDS: pantoprazole DR 40 mg Tablet PO (08:10)
[2024-06-01] MEDS: vancomycin 125 mg Capsule PO (08:10)
[2024-06-01] MEDS: linezolid premix 600 MG/300 ML PREMIX 300 MG IV (09:23)
[2024-06-01] MEDS: insulin glargine 100 units/1 mL 15 UNIT SUBCUT (10:37)
[2024-06-01 12:22] LABS: Glucose Point of Care 282 mg/dL (70-110)
--- NOTE | 2024-06-01 12:47 | P.DS_ITS ---
Discharge Providers Date of Admission: 05/30/24 09:47 Date of Discharge: June 01, 2024 Attending Provider at Admission: Elijah Renee Attending Provider at Discharge: Norbert Renee MD Primary Care Provider: ANDRES Pettit Diagnoses at Discharge Discharge Diagnosis (1) Sepsis: Status: Acute (2) Acute exacerbation of CHF (congestive heart failure): Status: Acute (3) Respiratory failure: Status: Acute (4) JACIEL (acute kidney injury): Status: Acute (5) Hyperglycemia: Status: Acute Reason for Visit Reason for Visit: SOB Hospital Course Hospital Course Xavier is a 63-year-old white male who presented to the hospital significantly short of breath, requiring a fair amount of oxygen. 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 He had most recently stopped the doxycycline and was placed on clindamycin secondary to sunburn or sensitivity on the dorsal surfaces of his hands. He had also potentially had 1 episode of diarrhea, which was concerning as he had a past history of C. difficile colitis. In the emergency department his white blood cell count was markedly elevated. He was not febrile. He was requiring a significant amount of oxygen. He appeared significantly fluid overloaded. CT scan suggested potentially multilobar pneumonia and bilateral pleural effusions that were small. He was placed on broad-spectrum antibiotics consisting of cefepime and linezolid. Cultures were obtained. Vancomycin p.o. was initiated. C. difficile was ordered but ultimately never collected as he never had any further diarrhea. He was diuresed, and he had significant improvement of his creatinine and clinical status. He came off oxygen quickly, returning to 1 to 2 L and room air later in the evening on 05/31. On 06/01 continued on room air, and was feeling much better. He requested to go home.Cultures were negative at that time. White blood cell count had gone from 25,000 to 20,000-16,000 over the 3 days of hospital stay. Creatinine had gone from 1.6-1.2. It was thought he could go home with a higher dose of Lasix. He will follow-up with cardiology in 2 weeks. He will see his primary care provider in 2 days with a CBC and BMP. He will finish up a 10-day course of vancomycin. Unfortunately no stool was ever collected while in the hospital. He will go on doxycycline 100 mg twice daily, and go back to his prophylactic dosing once 10-day course has been completed. I suspect his prophylaxis dosing is 100 mg twice a day as well but he did not have that information for me. He will finish up a very short course of cefdinir as prescribed.Of note while in the hospital he also got a coronavirus screening which was negative. He had a renal ultrasound which showed no obstruction. He had a limited echo which showed no overall changes, and no overt mass was seen. His CT chest abdomen and pelvis demonstrated bilateral pleural effusions and bilateral infiltrates question pneumonia. There was a hypodense lesion in the spleen, where an area of previously described wedge-shaped hypoenhancement was noted. I will leave this to his primary and infectious disease doctors to determine whether this should be followed up in the future. He was given opportunity ask questions and agreed with the plan. He will be discharged on a higher dose of Lasix, 40 mg once daily. His carvedilol dose was lowered to accommodate lower blood pressures and he will start 12.5 mg twice daily. Physical Exam Narrative: General exam is a white male, on room air, in no distress describing no shortness of breath or chest discomfort Neck is supple Cardiovascular regular rate and rhythm with a 2/6 systolic murmur Lungs diminished breath sounds bilaterally but no crackles or wheezes Abdomen is soft Extremities no cyanosis clubbing or edema. Urinary Catheter Management: Arredondo: Cath Placed During This Visit: yes, but has since been removed by the nurse Reason for Continuing Indwelling Catheter: Decision to DC Catheter Urinary Catheter Date of Insertion: 05/30/24 Date Urinary Catheter Removed: 05/31/24 Time Urinary Catheter Discontinued: 11:00 Discharge Data Studies Completed and Pending Completed Studies During Hospitalization Category Date Time Status CT chest abdomen pelvis [[place] [id number] Cat Scan 05/30/24 14:24 Completed ] Routine XR chest 1V portable [id number] Stat Exams 05/30/24 07:59 Completed CV. echo limited [id number] Routine Ultrasound 05/30/24 15:37 Completed US renal BI* [id number] Routine Ultrasound 05/30/24 16:45 Completed Pending at discharge Category Date Time Status Blood Culture Stat Lab 05/30/24 23:33 Results C.Diff PCR (Lab) Routine Lab 05/30/24 11:30 Uncollected Complete Blood Count w/Auto AM LABS Lab 06/02/24 04:00 Ordered Comprehensive Metabolic Panel AM LABS Lab 06/02/24 04:00 Ordered MRSA [Methicillin Resistant S.aureu] Routine Lab 05/31/24 08:14 Received Magnesium AM LABS Lab 06/02/24 04:00 Ordered Sputum Culture and Gram Stain Routine Lab 05/30/24 16:17 Uncollected Radiology Impressions Chest X-Ray 05/30/24 07:59 IMPRESSION: 1. Bibasilar hazy opacities and prominent interstitial lung markings. This finding is consistent with pulmonary congestion. Overlying infiltrate is not excluded. 2. Cardiomediastinal silhouette is midline and enlarged, stable. Chest/Abdomen/Pelvis CT 05/30/24 14:24 IMPRESSION: Multilobar pneumonia with bilateral pleural effusions. IMPRESSION: 1. No acute intra-abdominal process. 2. Hypodense lesion in the spleen not fully characterized on current study and needs follow-up with an enhanced CT scan or MRI. Renal Ultrasound 05/30/24 16:45 IMPRESSION: 1. No hydronephrosis on either side. 2. Nonobstructing stone in the lower pole of the left kidney measuring 9 mm. Laboratory Results WBC 16.41 10^3/uL (3.29-11.43) H 06/01/24 05:21 RBC 4.57 10^6/uL (3.85-5.65) 06/01/24 05:21 Hgb 13.80 g/dL (11.27-16.99) 06/01/24 05:21 Hct 40.6 % (37-53) 06/01/24 05:21 MCV 88.8 fl (82-101) 06/01/24 05:21 MCH 30.2 pg (27-33) 06/01/24 05:21 MCHC 34.0 g/dL (30-55) 06/01/24 05:21 RDW 16.2 % (12.1-15.1) H 06/01/24 05:21 Plt Count 189 10^3/cmm (157-399) 06/01/24 05:21 MPV 11.9 fL (7.4-10.4) H 06/01/24 05:21 Neut % (Auto) 82.5 % 06/01/24 05:21 Lymph % (Auto) 9.0 % 06/01/24 05:21 [place] % (Auto) 7.7 % 06/01/24 05:21 Eos % (Auto) 0.1 % 06/01/24 05:21 Baso % (Auto) 0.1 % 06/01/24 05:21 Neut # (Auto) 13.54 10^3/uL (1.8-7.7) H 06/01/24 05:21 Lymph # (Auto) 1.5 10^3/uL (0.8-4.8) 06/01/24 05:21 [place] # (Auto) 1.3 10^3/uL (0.2-0.9) H 06/01/24 05:21 Eos # (Auto) 0.0 10^3/uL (0.0-0.8) 06/01/24 05:21 Baso # (Auto) 0.0 10^3/uL (0.0-0.1) 06/01/24 05:21 Nucleated RBC % (auto) 0 % 06/01/24 05:21 Nucleated RBCs # 0.0 /100WBC 06/01/24 05:21 Specimen Type Arterial 05/30/24 08:09 Sample Site Radial, left 05/30/24 08:09 ABG pH 7.15 (7.35-7.45) L* 05/30/24 08:09 ABG pCO2 48.8 mmHg (35-45) H 05/30/24 08:09 ABG pO2 70.9 mmHg (80.0-100.0) L 05/30/24 08:09 ABG PO2/FiO2 Ratio 177 05/30/24 08:09 ABG HCO3 17.0 mmol/L (22-26) L 05/30/24 08:09 ABG O2 Saturation 89.1 05/30/24 08:09 ABG Base Excess -11.9 mmol/L (-2.0-2.0) L 05/30/24 08:09 Oral Test Pos 05/30/24 08:09 A-a O2 Gradient 20.2 mmHg (5-10) H 05/30/24 08:09 Hematocrit 46.2 % (42-52) 05/30/24 08:09 Hgb O2 Saturation 88.3 % (95-100) L 05/30/24 08:09 Carboxyhemoglobin 0.8 %THgb (0.4-20.1) 05/30/24 08:09 Methemoglobin 0.1 % (0.4-1.5) L 05/30/24 08:09 Total Hemoglobin 15.1 g/dL (14-18) 05/30/24 08:09 Sodium 136.0 mmol/L (131-143) 05/30/24 08:09 Potassium 5.1 mmol/L (3.5-5.0) H 05/30/24 08:09 Glucose 503.0 mg/dL (70-115) H 05/30/24 08:09 Ionized Calcium 1.2 mmol/L (1.1-1.4) 05/30/24 08:09 O2 Delivery Device Nc 05/30/24 08:09 O2 Liters/Min 5.0 % 05/30/24 08:09 FiO2 40.0 % 05/30/24 08:09 Diabetes Territory Manager ID Amh 05/30/24 08:09 Sodium 136 mmol/L (136-145) 06/01/24 05:21 Potassium 4.2 mmol/L (3.5-5.1) 06/01/24 05:21 Chloride 98 mmol/L (98-107) 06/01/24 05:21 Carbon Dioxide 24 mmol/L (22-29) 06/01/24 05:21 Anion Gap 18.2 (5-19) 06/01/24 05:21 BUN 46 mg/dL (8-23) H 06/01/24 05:21 Creatinine 1.2 mg/dL (0.7-1.2) 06/01/24 05:21 GFR Calculation 61.1 mL/min (90-130) L 06/01/24 05:21 Glucose 204 mg/dL (65-115) H 06/01/24 05:21 POC Glucose 282 mg/dL (70-110) H 06/01/24 11:36 Calculated Osmolality 300 mOsm/kg (285-295) H 06/01/24 05:21 Lactic Acid 5.8 mmol/L (0.5-2.2) H* 05/30/24 08:10 Lactic Acid (Sepsis) 2.1 mmol/L (0.5-2.2) 05/30/24 23:33 Calcium 9.2 mg/dL (8.5-10.5) 06/01/24 05:21 Phosphorus 4.8 mg/dL (2.5-4.5) H 05/31/24 03:10 Magnesium 1.9 mg/dL (1.7-2.3) 06/01/24 05:21 Total Bilirubin 0.7 mg/dL (0.15-1.2) 06/01/24 05:21 AST 18 U/L (0-40) 06/01/24 05:21 ALT 28 U/L (0-41) 06/01/24 05:21 Alkaline Phosphatase 80 U/L (40-130) 06/01/24 05:21 Creatine Kinase 43 U/L (39-308) 05/30/24 08:10 Troponin T Baseline 33 ng/L (0-15) H 05/30/24 08:10 Troponin T 120 Minute 46.12 ng/L (0-15) H 05/30/24 23:33 Delta Troponin T 13.12 ABS# (0-10) H* 05/30/24 23:33 C-Reactive Protein 3.0 mg/L (0.0-4.9) 05/30/24 08:10 NT-Pro-B Natriuret Pep 8038 pg/mL (0-125) H 05/30/24 08:10 Total Protein 6.1 g/dL (6.6-8.7) L 06/01/24 05:21 Albumin 3.9 g/dL (3.5-5.2) 06/01/24 05:21 Globulin 2.2 g/dL (1.3-4.6) 06/01/24 05:21 Urine Color Yellow (Yellow) 05/30/24 10:10 Urine Appearance Clear (CLEAR) 05/30/24 10:10 Urine pH 5 (5-7) 05/30/24 10:10 Ur Specific [place] 1.010 (1.005-1.030) 05/30/24 10:10 Urine Protein Trace (Negative) 05/30/24 10:10 Urine Glucose (UA) 4+ (Normal) H 05/30/24 10:10 Urine Ketones Negative (Negative) 05/30/24 10:10 Urine Blood Trace (Negative) H 05/30/24 10:10 Urine Nitrate Negative (Negative) 05/30/24 10:10 Urine Bilirubin Neg (Negative) 05/30/24 10:10 Urine Urobilinogen Norm mg/dL (Negative) 05/30/24 10:10 Ur Leukocyte Esterase Negative (Negative) 05/30/24 10:10 Urine RBC 0-4 /hpf (0-2) H 05/30/24 10:10 Urine WBC None /hpf (0-5) 05/30/24 10:10 Ur Squamous Epith Cells 0-4 /hpf (0-5) H 05/30/24 10:10 Amorphous Sediment Not Reportable 05/30/24 10:10 Urine Bacteria Trace /hpf (NONE) 05/30/24 10:10 Serum Ketones Negative (Negative) 05/30/24 08:10 Coronavirus 229E (PCR) Not detected (NOT DETECT) 05/31/24 08:24 SARS-CoV-2 (PCR) Not detected (NOT DETECT) 05/31/24 08:24 Vitals Last Vital Signs Temp 96.9 F L 06/01/24 11:37 Pulse 70 06/01/24 11:37 Resp 27 H 06/01/24 11:37 BP 110/66 06/01/24 11:37 Pulse Ox 90 06/01/24 11:37 O2 Del Method Room Air 06/01/24 11:37 O2 Flow Rate 3 05/31/24 07:49 FiO2 40 06/01/24 04:00 Discharge Plan Discharge Patient Disposition: Home Condition: Stable Prescriptions: New doxycycline hyclate 100 mg capsule 100 mg PO BID 10 Days Qty: 20 0RF cefdinir 300 mg capsule 300 mg PO BID 5 Days Qty: 10 0RF vancomycin 125 mg Capsule 125 mg PO QID Qty: 28 0RF furosemide [Lasix] 40 mg tablet 40 mg PO QAM Qty: 30 0RF carvedilol 12.5 mg tablet 12.5 mg PO BID Qty: 60 0RF Rx Instructions: must administer with a meal/food Continued (DME) lancets [BD Ultra Fine Lancets] 33 gauge misc See Rx Instructions .ROUTE .MEDSUPPLY Qty: 100 11RF Rx Instructions: check blood sugar twice daily and as needed spironolactone 25 mg tablet 25 mg PO DAILY Qty: 90 1RF Eliquis 5 mg tablet 5 mg PO BID Qty: 180 1RF (DME) nebulizer machine with tubing and mask See Rx Instructions .Route .MEDSUPPLY Qty: 1 0RF Rx Instructions: As directed allopurinol 300 mg tablet 300 mg PO QAM Qty: 90 1RF (DME) Blood Glucose Test Strip See Rx Instructions .ROUTE .MEDSUPPLY Qty: 100 11RF Rx Instructions: Check blood sugar 2 x daily and prn amiodarone 400 mg tablet 400 mg PO DAILY Qty: 90 1RF (DME) blood-glucose meter [Blood Glucose Monitoring] Kit See Rx Instructions .ROUTE .MEDSULY Qty: 1 0RF Rx Instructions: As directed; to test 2 x day and prn albuterol sulfate 2.5 mg /3 mL (0.083 %) solution for nebulization 2.5 mg inhalation QID PRN (Reason: shortness of breath or wheezing) Qty: 180 5RF omega 3-lmo-egb-fish oil [Fish Oil] 300-1,000 mg capsule 1 cap PO DAILY Qty: 90 1RF (DME) Standard Cpap Device See Rx Instructions .Route Qty: 1 0RF Rx Instructions: As directed WITH SUPPLIES pantoprazole [Protonix] 40 mg tablet,delayed release (DR/EC) 40 mg PO BID Qty: 60 2RF insulin glargine [Lantus Solostar U-100 Insulin] 100 unit/mL (3 mL) insulin pen 25 unit SUBCUT BEDTIME Qty: 15 2RF sertraline 100 mg tablet 100 mg PO QAM Qty: 30 2RF albuterol sulfate 90 mcg/actuation Hfa Aerosol Inhaler 2 inh INHALATION Q6H PRN (Reason: Shortness Of Breath) Men's 50 Plus Multivitamin 400-20-370 mcg Tablet 1 tab PO DAILY fluticasone propionate [Flonase Allergy Relief] 50 mcg/actuation spray,suspension 2 spray intranasal DAILY PRN (Reason: Allergy Symptoms) Rx Instructions: administer into each nostril clopidogrel 75 mg Tablet 75 mg PO DAILY Qty: 30 2RF dapagliflozin propanediol [Farxiga] 10 mg tablet 10 mg PO DAILY rosuvastatin 40 mg tablet 40 mg PO BEDTIME levocetirizine [Xyzal] 5 mg tablet 5 mg PO DAILY PRN (Reason: allergies) potassium citrate 10 mEq (1,080 mg) tablet extended release 20 meq PO BID magnesium L-lactate [Mag-Lactate SR] 84 mg Tablet Extended Release 84 mg PO DAILY Discontinued carvedilol 25 mg tablet 25 mg PO BID 90 Days Qty: 180 1RF polyethylene glycol 3350 [Miralax] 17 gram/dose powder See Rx Instructions .ROUTE .COMPLEX Rx Instructions: MIX 1 CAPFUL (17G) IN 8 OUNCES LIQUID AND DRINK ENTIRE LIQUID DAILY NEEDED. clindamycin HCl 300 mg capsule 300 mg PO TID 7 Days Qty: 21 0RF Lasix 20 mg tablet 20 mg PO DAILY PRN (Reason: Edema) Discharge Orders: Discharge Order (Routine); Ordered 06/01/24 Ordered By: Norbert Renee Referrals: Joe Holder MD [Physician] - 2 weeks Lucrecia Blandon FNP [Primary Care Provider] - 06/03/24 11:00 am (CBC and BMP on follow-up) Discharge Diet: Cardiac and Diabetic Discharge Activity: Increase activity as tolerated Patient Instructions: Furosemide (By mouth) (Lasix), Doxycycline (By mouth), Carvedilol (By mouth) (Coreg, Coreg CR, Hypertenevide-12.5), Vancomycin (By mouth), Cefdinir (By mouth) (Omnicef), Acute Kidney Injury (DC), Sepsis (DC), Chronic Respiratory Failure (DC), Opioid Safety Activity Restrictions/Additional Instructions: Take all medicine as prescribed Note that your dose of Lasix was increased. 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 Please remember this can make your skin very susceptible to sunburn. Please cover it when you are outside, use sunblock Discharge Attestations Time Spent in Discharge Care*: greater than 30 min Status at Discharge: Cognitive status at discharge: cognitively intact , Behavioral status at discharge: cooperative , Quality Metrics Clinical Quality Measures [ No reported AMI, CVA or VTE this stay] Coding Level of Care Code 00441 Total time (in minutes) for Discharge: 37 Diagnoses Sepsis A41.9 Acute exacerbation of CHF (congestive heart failure) I50.9 Respiratory failure J96.90 JACIEL (acute kidney injury) N17.9 Hyperglycemia R73.9
[2024-06-01 14:30] LABS: Methicillin-Resist S.aureu PCR NOT DETECTED (NOT DETECTED)
== END 2024-06-01 15:17 | disposition home or self-care (01) | DRG 871 ==
LOC: ER 09:50 → ICU 10:09 → CSU 05-31 16:31
PROVIDERS: Admitting Provider Internal Medicine; Emergency Provider Emergency Medicine; PCP Nurse Practitioner Family; Visit Provider Internal Medicine
DX: A41.9 Sepsis, unspecified organism (principal); I33.0 Acute and subacute infective endocarditis; I50.43 Acute on chronic combined systolic (congestive) and diastolic (congestive) heart failure; J18.9 Pneumonia, unspecified organism; J96.01 Acute respiratory failure with hypoxia; N17.9 Acute kidney failure, unspecified; J44.0 Chronic obstructive pulmonary disease with (acute) lower respiratory infection; J44.1 Chronic obstructive pulmonary disease with (acute) exacerbation; I42.8 Other cardiomyopathies; E87.21 Acute metabolic acidosis; R65.20 Severe sepsis without septic shock; E11.65 Type 2 diabetes mellitus with hyperglycemia; Z86.73 Personal history of transient ischemic attack (TIA), and cerebral infarction without residual deficits; Z95.810 Presence of automatic (implantable) cardiac defibrillator; G47.33 Obstructive sleep apnea (adult) (pediatric); F31.9 Bipolar disorder, unspecified; I48.91 Unspecified atrial fibrillation; Z79.01 Long term (current) use of anticoagulants; E78.2 Mixed hyperlipidemia; I11.0 Hypertensive heart disease with heart failure; I25.2 Old myocardial infarction; Z86.16 Personal history of COVID-19; K21.9 Gastro-esophageal reflux disease without esophagitis; B96.89 Other specified bacterial agents as the cause of diseases classified elsewhere
CPT/HCPCS: 36415; 36416; 36600; 51702; 71045; 71250; 74176; 76770; 80051; 80053; 81001; 82009; 82330; 82550; 82805; 82962; 83605; 83735; 83880; 84100; 84484; 85025; 86140; 87040; 87635; 87641; 93005; 93308; 94640; 94660; 94664; 96365; 96367; 96372; 96374; 96375; 96376; 99291; C9113; J0360; J0692; J1650; J1815; J1940; J2020; J2919; J7613; J7626

== ENCOUNTER → 2024-06-03 12:06 | Outpatient (BNVA) | payer MEDICAID, SELFPAY ==
[2024-03-03 15:38] VITALS: BP 110/60; BMI 42.3
== END ==
PROVIDERS: PCP Nurse Practitioner Family; Visit Provider Nurse Practitioner Family
DX: I33.0 Acute and subacute infective endocarditis (principal)
CPT/HCPCS: 80048; 85025

== ENCOUNTER 2024-06-12 05:18 | Emergency (ER) | payer MEDICAID, SELFPAY ==
[2024-03-03 15:38] VITALS: BP 110/60; BMI 42.3
[2024-06-12 05:18] VITALS: BP 151/99; PULSE 70; RESP 20; TEMP 36.6; O2SAT 95
[2024-06-12 05:26] VITALS: O2SAT 97
[2024-06-12 05:56] VITALS: BP 142/92; PULSE 70; O2SAT 94
--- NOTE | 2024-06-12 06:01 | W.ED.EPISTAX ---
HPI - Epistaxis General: Chief complaint: Epistaxis Stated complaint: nose bleed Time Seen by Provider: 06/12/24 05:43 Source: patient History of Present Illness: Patient is a 63-year-old gentleman who is anticoagulated on Eliquis and Plavix and states that he wears a CPAP and states that he woke up with blood in his CPAP mask and having a nosebleed which she believes was from the right nostril. He held pressure for 10 to 15 minutes and continue to have some epistaxis and called an ambulance. Bleeding has subsided while he is here and has no current epistaxis. Associated symptoms: Deny fever(s), headache(s) or vomiting Review of Systems Const: Denies: fever(s), chills or diaphoresis ENMT: Reports: epistaxis Card: Denies: chest pain Resp: Denies: dyspnea GI: Denies: abdominal pain, nausea or vomiting Skin/Breast: Denies: rash Neuro: Denies: headache(s) COUNTS INCLUDE 234 BEDS AT THE [facility] ED PFSH: Medical History Cardiac resynchronization therapy defibrillator (ADON-D) in place [employer] [place] [place], 07/11/2020 Cardiomyopathy Mixed hyperlipidemia Hypertension CVA (cerebral vascular accident) PVCs (premature ventricular contractions) Hypomagnesemia Infarction of spleen Type 2 diabetes mellitus Nausea & vomiting Gastroparesis COPD (chronic obstructive pulmonary disease) Major depressive disorder, recurrent episode, mild degree Major depressive disorder in partial remission Allergic rhinitis Bipolar II disorder Diabetes Non-ST elevation MS (NSTEMI) Uses bilevel positive airway pressure (BPAP) ventilation at home 12/8cm Dysarthria Unstable angina Nonischemic congestive cardiomyopathy Chronic low back pain Elevated blood uric acid level History of sleep study 2017 at [facility]: Optimal pressure settings with BiPAP found to be 12/8 cm COVID-19 Wound infection following procedure infection with defibrillator lead revision, removed , scarring left subclavian area from this GERD (gastroesophageal reflux disease) ALBERTO (obstructive sleep apnea) C. difficile diarrhea Cataracts, bilateral CHF (congestive heart failure) Urolithiasis Multi stone former, calcium oxalate mono and dihydrate. Also calcium phosphate. Multiple interventions including endoscopy with laser lithotripsy and ESWL. Metabolic treatment with potassium citrate Hemorrhoids Psychiatric care Right ureteral calculus Osteoarthritis of hands, bilateral Pacemaker Surgical History S/P epidural steroid injection Status post hemorrhoidectomy Hx of umbilical hernia repair Hx of lithotripsy History of urethral stent H/O esophagogastroduodenoscopy (02/27/21) gastritis, duodenitis History of colonoscopy (02/27/21) descending colon polyp, hemorrhoids History of carpal tunnel release of both wrists History of permanent cardiac pacemaker placement Hx of cataract surgery Hx of shoulder surgery Family History Grandfather CAD (coronary artery disease) Brother Cancer colon cancer Diabetes Mother Diabetes Father No problems noted. Other Hypertension Rheumatoid arthritis Social History Smoking and tobacco/nicotine status: former use of tobacco/nicotine Second hand smoke exposure: No Alcohol intake: former Year of sobriety/quit date alcohol: 1997 Substance/Drug Use: former Date of last use: 1997 Caregiver/support person: Yes Lives independently: Yes Household members: spouse Marital status: service: No Current occupational status: disabled Current gender identity: Male Special fernando needs: No Agree to transfusion: Yes Physical Exam Const: COMMON NORMALS: no acute distress, average body habitus, alert and well nourished GENERAL APPEARANCE: cooperative ORIENTATION/CONSCIOUSNESS: Yes awake OTHER: Nontoxic 63-year-old gentleman in no acute distress HENMT: COMMON NORMALS: normocephalic and atraumatic HEAD & SCALP: normocephalic and atraumatic OTHER: Oropharynx is clear and moist. No evidence of epistaxis down the posterior pharynx. No active epistaxis. Some scant dried blood in the right nostril. Eye: COMMON NORMALS: conjunctivae normal CONJUNCTIVA: Yes conjunctivae normal Neck/C-Spine: GENERAL: Yes normal visual inspection Resp: COMMON NORMALS: normal respiratory effort, No retractions and No use of accessory muscles Cardio: COMMON NORMALS: regular rhythm and Peripheral pulses 2+ throughout RHYTHM: regular rhythm PERIPHERAL PULSES: Peripheral pulses 2+ throughout GI: COMMON NORMALS: Soft to palpation and non-tender PALPATION: Yes Soft to palpation Extremity: COMMON NORMALS: full ROM and no pedal edema Neuro: COMMON NORMALS: no focal motor deficits SENSORIUM/ORIENTATION: Yes alert Skin: COMMON NORMALS: no rashes or lesions noted GENERAL SKIN EXAM: no rashes or lesions noted Course Vital Signs: Vital signs: Vital Signs Temperature 98 F 06/12/24 05:18 Pulse Rate 70 06/12/24 05:18 Respiratory Rate 20 H 06/12/24 05:18 Blood Pressure 151/99 06/12/24 05:18 Pulse Oximetry 95 06/12/24 05:18 MDM - Epistaxis Medical Decision Making Patient is a 63-year-old gentleman who is anticoagulated on Eliquis and Plavix who presents with epistaxis that has since resolved prior to arrival here. No evidence of continued epistaxis and he is in no acute distress. I will go ahead and administer Afrin to each nostril and observe for period of time. Patient will be turned over to Dr. Pascual pending continued observation in anticipation for discharge if no recurrent epistaxis. Patient was counseled on use of K-Y jelly in each nostril twice daily to help maintain moisture and given nose blowing precautions. Differential Diagnosis Likely anterior epistaxis and posterior epistaxis No radiology studies performed this visit Discharge Plan Discharge Patient Disposition: Home Clinical Impression: Anterior epistaxis Condition: Stable Prescriptions: No Action (DME) lancets [BD Ultra Fine Lancets] 33 gauge misc See Rx Instructions .ROUTE .MEDSUPPLY Qty: 100 11RF Rx Instructions: check blood sugar twice daily and as needed spironolactone 25 mg tablet 25 mg PO DAILY Qty: 90 1RF Eliquis 5 mg tablet 5 mg PO BID Qty: 180 1RF albuterol sulfate 2.5 mg /3 mL (0.083 %) solution for nebulization 2.5 mg inhalation QID PRN (Reason: shortness of breath or wheezing) Qty: 180 5RF albuterol sulfate 90 mcg/actuation HFA aerosol inhaler 2 inh INHALATION Q6H PRN (Reason: Shortness Of Breath) Qty: 8.5 2RF (DME) nebulizer machine with tubing and mask See Rx Instructions .Route .MEDSUPPLY Qty: 1 0RF Rx Instructions: As directed allopurinol 300 mg tablet 300 mg PO QAM Qty: 90 1RF (DME) Blood Glucose Test Strip See Rx Instructions .ROUTE .MEDSUPPLY Qty: 100 11RF Rx Instructions: Check blood sugar 2 x daily and prn amiodarone 400 mg tablet 400 mg PO DAILY Qty: 90 1RF (DME) blood-glucose meter [Blood Glucose Monitoring] Kit See Rx Instructions .ROUTE .MEDSUPPLY Qty: 1 0RF Rx Instructions: As directed; to test 2 x day and prn omega 5-blo-wbp-fish oil [Fish Oil] 300-1,000 mg capsule 1 cap PO DAILY Qty: 90 1RF (DME) Standard Cpap Device See Rx Instructions .Route Qty: 1 0RF Rx Instructions: As directed WITH SUPPLIES pantoprazole [Protonix] 40 mg tablet,delayed release (DR/EC) 40 mg PO BID Qty: 60 2RF insulin glargine [Lantus Solostar U-100 Insulin] 100 unit/mL (3 mL) insulin pen 25 unit SUBCUT BEDTIME Qty: 15 2RF sertraline 100 mg tablet 100 mg PO QAM Qty: 30 2RF Lasix 40 mg tablet 40 mg PO QAM Qty: 30 5RF carvedilol 12.5 mg tablet 12.5 mg PO BID Qty: 60 0RF Rx Instructions: must administer with a meal/food vancomycin 125 mg Capsule 125 mg PO QID Qty: 28 0RF Men's 50 Plus Multivitamin 400-20-370 mcg Tablet 1 tab PO DAILY fluticasone propionate [Flonase Allergy Relief] 50 mcg/actuation spray,suspension 2 spray intranasal DAILY PRN (Reason: Allergy Symptoms) Rx Instructions: administer into each nostril clopidogrel 75 mg Tablet 75 mg PO DAILY Qty: 30 2RF dapagliflozin propanediol [Farxiga] 10 mg tablet 10 mg PO DAILY rosuvastatin 40 mg tablet 40 mg PO BEDTIME levocetirizine [Xyzal] 5 mg tablet 5 mg PO DAILY PRN (Reason: allergies) potassium citrate 10 mEq (1,080 mg) tablet extended release 20 meq PO BID magnesium L-lactate 84 mg Tablet Extended Release 84 mg PO DAILY Discharge Orders: Discharge ED (Routine); Ordered 06/12/24 Ordered By: Nomi Willson Referrals: Lucrecia Blandon, ANDRES [Primary Care Provider] - Patient Instructions: Nosebleed (ED), Epistaxis - Adult, Opioid Safety, Pain Management Activity Restrictions/Additional Instructions: Refrain from blowing your nose or picking your nose as this will cause recurrence of your nosebleed. If you experience recurrence of nosebleed, squeeze your nose and hold pressure for at least 15 to 20 minutes while sitting upright with your head slightly tilted forward. If you experience continued nosebleed, return to the ER. Apply water-based lubricant such as K-Y jelly to each nostril twice daily. Coding Level of Care Code ED [employer]
[2024-06-12] MEDS: oxymetazoline 0.05% Nasal Spray 15 mL 2 SPRAY NOSTRIL-B (06:13)
[2024-06-12 06:26] VITALS: BP 145/97; PULSE 72; O2SAT 95
== END 2024-06-12 06:29 | disposition home or self-care (01) ==
PROVIDERS: Emergency Provider Student in an Organized Health Care Education/Training Program; PCP Nurse Practitioner Family
DX: R04.0 Epistaxis (principal); Z79.01 Long term (current) use of anticoagulants; Z79.02 Long term (current) use of antithrombotics/antiplatelets; Z79.4 Long term (current) use of insulin; Z87.891 Personal history of nicotine dependence; Z95.0 Presence of cardiac pacemaker; E78.2 Mixed hyperlipidemia; I11.0 Hypertensive heart disease with heart failure; I50.9 Heart failure, unspecified; I42.8 Other cardiomyopathies; Z86.73 Personal history of transient ischemic attack (TIA), and cerebral infarction without residual deficits; J44.9 Chronic obstructive pulmonary disease, unspecified; I25.2 Old myocardial infarction
CPT/HCPCS: 99283

== ENCOUNTER → 2024-06-18 08:53 | Outpatient (BNVA) | payer MEDICAID, SELFPAY ==
[2024-06-18 08:05] VITALS: BP 110/60; BMI 42.3
== END ==
PROVIDERS: PCP Nurse Practitioner Family; Visit Provider Nurse Practitioner Family
DX: E11.42 Type 2 diabetes mellitus with diabetic polyneuropathy (principal)
CPT/HCPCS: 80053; 80061; 83036; 85025

== ENCOUNTER → 2024-07-05 08:57 | Outpatient (BNVA) | payer MEDICAID, SELFPAY ==
[2024-06-22 09:22] VITALS: BP 110/74; BMI 36.6
== END ==
PROVIDERS: PCP Nurse Practitioner Family; Visit Provider Nurse Practitioner Family
DX: R79.89 Other specified abnormal findings of blood chemistry (principal); I50.9 Heart failure, unspecified; J18.9 Pneumonia, unspecified organism
CPT/HCPCS: 80053; 80076; 83880

== ENCOUNTER 2024-07-13 16:20 | Outpatient (CLI) | payer MEDICAID, SELFPAY ==
[2024-06-22 09:22] VITALS: BP 110/74; BMI 36.6
--- NOTE | 2024-07-13 16:27 | XR_ITS ---
WS: [id number] Examination: XR chest 2V* 98108 Reason for Exam: J18.9 - Pneumonia, unspecified organism Date: 07/13/2024 Comparison: May 30, 2024 Findings: The heart is enlarged. The mediastinum is not widened. Multiple pacer wires are identified with an abandoned and fragmented lead on the left. There is no pulmonary edema or pleural effusion. There is no dense consolidative change Hypertrophic changes of the thoracic spine are present. XR/XR chest 2V* [id number] IMPRESSION: The heart is enlarged. There is no overt failure.
== END 2024-07-13 16:21 | disposition home or self-care (01) ==
LOC: RAD 16:21
PROVIDERS: PCP Nurse Practitioner Family; Visit Provider Nurse Practitioner Family
DX: J18.9 Pneumonia, unspecified organism (principal); I51.7 Cardiomegaly; M89.48 Other hypertrophic osteoarthropathy, other site
CPT/HCPCS: 71046

== ENCOUNTER 2024-07-23 16:01 | Outpatient (CLI) | payer MEDICAID, SELFPAY ==
[2024-06-22 09:22] VITALS: BP 110/74; BMI 36.6
--- NOTE | 2024-07-23 16:13 | XR_ITS ---
WS: [id number] XR wrist LT min 3V* [id number] REASON FOR EXAM: M25.532 - Pain in left wrist FINDINGS: No fracture or focal bone lesion. The joints of the wrist are intact and well preserved. No soft tissue abnormality. XR/XR wrist LT min 3V* [id number] IMPRESSION: No significant abnormality.
== END 2024-07-23 16:02 | disposition home or self-care (01) ==
LOC: RAD 16:02
PROVIDERS: PCP Nurse Practitioner Family; Visit Provider Nurse Practitioner Family
DX: M25.532 Pain in left wrist (principal)
CPT/HCPCS: 73110

== ENCOUNTER 2024-08-17 12:36 | Inpatient (IN) | payer MEDICAID, SELFPAY ==
[2024-06-22 09:22] VITALS: BP 110/74; BMI 36.6
[2024-08-17] VITALS (14 sets, daily range): BP systolic 105–125; BP diastolic 69–91; PULSE 63–82; RESP 8–69; TEMP 36.4–36.8; O2SAT 93–100; BMI 35.1
--- NOTE | 2024-08-17 12:45 | ECG_ITS ---
[facility] Test Date: 2024-08-17 Pat Name: Amrik Alexander Department: Room: Gender: Male Group Exercise Manager: : 1960 Requested By: Leona Estrada Order Number: [id number] Haja MD: VAUGHN RAMACHANDRAN Measurements Intervals [place] Rate: 70 P: 264 HI: 175 QRS: 174 QRSD: 207 T: -6 QT: 507 QTc: 548 Interpretive Statements ELECTRONIC ATRIAL PACEMAKER ELECTRONIC VENTRICULAR PACEMAKER ABNORMAL RHYTHM ECG Compared to ECG 08/17/2024 12:39:01 No significant changes Electronically Signed On 08-18-2024 20:12:51 CDT by VAUGHN RAMACHANDRAN [id number]
--- NOTE | 2024-08-17 12:46 | XRR_ITS ---
PROCEDURE INFORMATION: Exam: XR Chest Exam date and time: 08/17/2024 1:07 PM Age: 63 years old Clinical indication: Right-sided; Prior surgery; Surgery date: 6+ months; Surgery type: Pacemaker; Patient HX: Locates chest pain to the right side TECHNIQUE: Imaging protocol: Radiologic exam of the chest. Views: 1 view. COMPARISON: CR XR chest 2V* [id number] 07/13/2024 5:07 PM FINDINGS: Tubes, catheters and devices: Unchanged, satisfactory appearance of right pacemaker/AICD. Unchanged lead from an old left pacemaker/AICD projecting over left central veins and the SVC. Lungs: Unremarkable. No consolidation. Pleural spaces: Unremarkable. No pleural effusion. No pneumothorax. Heart/Mediastinum: Increased moderate cardiomegaly. Otherwise, unremarkable mediastinal contours. Bones/joints: Unchanged mild and moderate multilevel spondylosis. Unchanged bilateral shoulder arthritis. Otherwise, unremarkable. XR/XR chest 1V portable [id number] IMPRESSION: 1. Increased moderate cardiomegaly. 2. No superimposed acute disease. 3. Additional details as above.
--- NOTE | 2024-08-17 12:46 | ECG_ITS ---
[facility] Test Date: 2024-08-17 Pat Name: Amrik Alexander Department: Room: Gender: Male Patrol Lady: : 1960 Requested By: Leona Estrada Order Number: [id number] Haja MD: VAUGHN RAMACHADNRAN Measurements Intervals [place] Rate: 70 P: 57 MD: 170 QRS: 172 QRSD: 211 T: 14 QT: 511 QTc: 552 Interpretive Statements ELECTRONIC ATRIAL PACEMAKER ELECTRONIC VENTRICULAR PACEMAKER ABNORMAL RHYTHM ECG Compared to ECG 05/30/2024 16:44:44 No significant changes Electronically Signed On 08-18-2024 20:09:48 CDT by VAUGHN RAMACHANDRAN [id number]
--- NOTE | 2024-08-17 12:50 | ED_ITS ---
HPI - Chest Pain 2 General: Chief Complaint: Chest Pain Stated Complaint: Chest Pain Time Seen by Provider: 08/17/24 12:41 History of Present Illness: 63-year-old man with a history of atrial fibrillation on Eliquis with pacemaker placement, type 2 diabetes, CHF with defibrillator COPD, CVA, depression, hypertension, and obstructive sleep apnea who presents emergency room with right-sided chest pain. He said that started about 7 AM this morning. It is pleuritic. He went to clinic and was sent to the emergency room. Some mild cough. Mild shortness of breath. No altered mental status. No focal motor deficits. No abdominal pain. No nausea or vomiting. No fevers. Related Data Home Medications Medication Instructions Recorded Confirmed fluticasone propionate 50 2 spray intranasal DAILY PRN 08/17/23 08/17/24 mcg/actuation nasal Allergy Symptoms spray,suspension (Flonase Allergy Relief) dapagliflozin propanediol 10 mg 10 mg PO DAILY 02/27/24 08/17/24 tablet (Farxiga) rosuvastatin 40 mg tablet 40 mg PO BEDTIME 02/27/24 08/17/24 magnesium L-lactate 84 mg 84 mg PO DAILY 03/08/24 08/17/24 tablet,extended release allopurinol 300 mg tablet 300 mg PO QAM 08/17/24 08/17/24 levocetirizine 5 mg tablet 5 mg PO DAILY 08/17/24 08/17/24 potassium citrate 10 mEq (1,080 20 meq PO BID 08/17/24 08/17/24 mg) tablet,extended release Previous Rx's Medication Instructions Recorded blood-glucose meter (Blood Glucose #1 ea 07/06/20 Monitoring kit) nebulizer machine with tubing and #1 ea 09/09/22 mask lancets 33 gauge (BD Ultra Fine #100 ea 12/05/22 Lancets) clopidogrel 75 mg tablet 75 mg PO DAILY #30 tabs 11/20/23 CPAP (Standard Cpap) #1 ea 04/09/24 apixaban 5 mg tablet (Eliquis) 5 mg PO BID #180 tabs 04/14/24 spironolactone 25 mg tablet 25 mg PO DAILY #90 tabs 04/14/24 pantoprazole 40 mg tablet,delayed 40 mg PO BID #60 tabs 04/22/24 release (Protonix) amiodarone 400 mg tablet 400 mg PO DAILY #90 tabs 05/10/24 blood sugar diagnostic (Blood #100 ea 05/10/24 Glucose Test strips) sertraline 100 mg tablet 100 mg PO QAM #30 tabs 05/18/24 carvedilol 12.5 mg tablet 12.5 mg PO BID #60 tabs 06/01/24 albuterol sulfate 2.5 mg/3 mL 2.5 mg (3 mL) inhalation QID PRN 06/03/24 (0.083 %) solution for nebulization shortness of breath or wheezing #180 mL albuterol sulfate 90 mcg/actuation 2 inh inhalation Q6H PRN Shortness 06/03/24 aerosol inhaler Of Breath #8.5 grams furosemide 40 mg tablet (Lasix) 40 mg PO QAM #30 tabs 06/03/24 insulin glargine 100 unit/mL (3 30 unit (0.3 mL) SUBCUT BEDTIME 06/28/24 mL) subcutaneous pen (Lantus #15 mL Solostar U-100 Insulin) alcohol swabs 1 pad topical DIRECTED #200 ea 08/05/24 blood sugar diagnostic (Blood #200 ea 08/05/24 Glucose Test strips) blood-glucose meter #1 ea 08/05/24 lancets #200 ea 08/05/24 Allergies Allergy/AdvReac Type Severity Reaction Status Date / Time isosorbide Allergy unknown Verified 07/05/24 08:32 Penicillins AdvReac rash Verified 07/05/24 08:32 Review of Systems 2 Narrative: Constitutional symptoms: Negative except as documented in HPI. Skin symptoms: Negative except as documented in HPI. Eye symptoms: Negative except as documented in HPI. ENMT symptoms: Negative except as documented in HPI. Respiratory symptoms: Negative except as documented in HPI. Cardiovascular symptoms: Negative except as documented in HPI. Gastrointestinal symptoms: Negative except as documented in HPI. Genitourinary symptoms: Negative except as documented in HPI. Musculoskeletal symptoms: Negative except as documented in HPI. Neurologic symptoms: Negative except as documented in HPI. Psychiatric symptoms: Negative except as documented in HPI. Endocrine symptoms: Negative except as documented in HPI. PFSH ED 2 PFSH: Medical History Type 2 diabetes mellitus Cardiac resynchronization therapy defibrillator (TUBE FITTER-D) in place [address] [place], 07/11/2020 Cardiomyopathy Mixed hyperlipidemia Hypertension CVA (cerebral vascular accident) PVCs (premature ventricular contractions) Hypomagnesemia Infarction of spleen Nausea & vomiting Gastroparesis COPD (chronic obstructive pulmonary disease) Major depressive disorder, recurrent episode, mild degree Major depressive disorder in partial remission Allergic rhinitis Bipolar II disorder Diabetes Non-ST elevation NH (NSTEMI) Uses bilevel positive airway pressure (BPAP) ventilation at home 12/8cm Dysarthria Unstable angina Nonischemic congestive cardiomyopathy Chronic low back pain Elevated blood uric acid level History of sleep study 2017 at [facility]: Optimal pressure settings with BiPAP found to be 12/8 cm COVID-19 Wound infection following procedure infection with defibrillator lead revision, removed , scarring left subclavian area from this GERD (gastroesophageal reflux disease) ALBERTO (obstructive sleep apnea) C. difficile diarrhea Cataracts, bilateral CHF (congestive heart failure) Urolithiasis Multi stone former, calcium oxalate mono and dihydrate. Also calcium phosphate. Multiple interventions including endoscopy with laser lithotripsy and ESWL. Metabolic treatment with potassium citrate Hemorrhoids Psychiatric care Right ureteral calculus Osteoarthritis of hands, bilateral Pacemaker Surgical History S/P epidural steroid injection Status post hemorrhoidectomy Hx of umbilical hernia repair Hx of lithotripsy History of urethral stent H/O esophagogastroduodenoscopy (02/27/21) gastritis, duodenitis History of colonoscopy (02/27/21) descending colon polyp, hemorrhoids History of carpal tunnel release of both wrists History of permanent cardiac pacemaker placement Hx of cataract surgery Hx of shoulder surgery Family History Grandfather CAD (coronary artery disease) Brother Cancer colon cancer Diabetes Mother Diabetes Father No problems noted. Other Hypertension Rheumatoid arthritis Social History Smoking and tobacco/nicotine status: never used tobacco/nicotine Second hand smoke exposure: No Alcohol intake: former Year of sobriety/quit date alcohol: 1997 Substance/Drug Use: former Date of last use: 1997 Caregiver/support person: Yes Lives independently: Yes Household members: spouse Marital status: service: No Current occupational status: disabled Current gender identity: Male Special fernando needs: No Agree to transfusion: Yes Physical Exam 2 Narrative: EXAM NARRATIVE: General: Alert, no acute distress. Skin: Warm, dry. Head: Normocephalic, atraumatic. Neck: Supple, trachea midline. Eye: Extraocular movements are intact. Ears, nose, mouth and throat: mucosa moist. Cardiovascular: Regular, Normal peripheral perfusion. Respiratory: Lungs are clear to auscultation, respirations are non-labored, breath sounds are equal, Symmetrical chest wall expansion. Gastrointestinal: Soft, Nontender, Non distended Musculoskeletal: Normal ROM, no deformity. Neurological: Alert and oriented, No focal neurological deficit observed. Psychiatric: Cooperative, appropriate mood & affect. Course 2 Vital Signs: Vital signs: Vital Signs Temperature 97.5 F L 08/17/24 12:39 Pulse Rate 68 08/17/24 14:30 Respiratory Rate 69 H 08/17/24 13:30 Blood Pressure 124/91 08/17/24 14:30 Pulse Oximetry 98 08/17/24 14:30 Oxygen Delivery Me thod Room Air 08/17/24 14:30 MDM - Chest Pain Medical Decision Making Differential diagnosis for patient with chest pain includes but is not limited to and based on the above HPI, review of systems and physical exam: Pneumonia. unstable angina. angina. Acute coronary syndrome / NH. Pulmonary embolism. Costochondritis / musculoskeletal. Pleurisy. Pericarditis. Esophageal spasm. Pancreatis. Cholecystitis. Orders placed to evaluate differential diagnosis based on the above differential, HPI and physical exam EKG: Time 1239. Rate 70. Normal sinus rhythm, No ST-T changes, no ectopy, paced rhythm, this was reviewed and interpreted by myself the emergency room physician at 1241. Repeat EKG: Time 1457. Rate 70. Normal sinus rhythm, No ST-T changes, no ectopy, paced rhythm, this was reviewed and interpreted by myself the emergency room physician at 1500. No changes from EKG done previously today in the emergency room. Chest x-ray: Mildly increased cardiomegaly. No acute process. No infiltrate. No pneumothorax. This was reviewed and interpreted by myself the ER physician. Lab Review: Laboratory results were reviewed and interpreted by myself the emergency room physician. No leukocytosis. No anemia. BUN and creatinine are stable at 23 and 1.3. He has some baseline renal dysfunction. Initial troponin was 50 repeat was 105. I reviewed the patient's medical record. Consultation: I spoke with Dr. Andrew who is on-call for cardiology. He recommends holding Eliquis and replacing it with Lovenox on his next scheduled dose. Consultation: I spoke with Dr. Gomez who is on-call for the hospitalist service and agrees to admission. Reexamination: Patient remained stable. No increased work of breathing. No altered mental status. No focal motor deficits. Pain has improved. Assessment and plan: Chest pain Coronary artery disease Cardiomyopathy/congestive heart failure -I discussed the patient with the hospitalist on-call who is admitting the patient. - Discussed findings and plan with patient. Answered any questions. - All laboratory values were reviewed and interpreted personally by myself, the ER physician - All imaging was reviewed and interpreted personally by myself, the ER physician. - Evaluation and treatment of this problem were appropriate in the emergency setting Lab Data 08/17/24 13:05 08/17/24 13:05 Radiology Impressions Chest X-Ray 08/17/24 12:46 IMPRESSION: 1. Increased moderate cardiomegaly. 2. No superimposed acute disease. 3. Additional details as above. Laboratory Results WBC 9.22 10^3/uL (3.29-11.43) 08/17/24 13:05 RBC 4.50 10^6/uL (3.85-5.65) 08/17/24 13:05 Hgb 13.40 g/dL (11.27-16.99) 08/17/24 13:05 Hct 40.5 % (37-53) 08/17/24 13:05 MCV 90.0 fl (82-101) 08/17/24 13:05 MCH 29.8 pg (27-33) 08/17/24 13:05 MCHC 33.1 g/dL (30-55) 08/17/24 13:05 RDW 15.3 % (12.1-15.1) H 08/17/24 13:05 Plt Count 246 10^3/cmm (157-399) 08/17/24 13:05 MPV 11.1 fL (7.4-10.4) H 08/17/24 13:05 Neut % (Auto) 70.4 % 08/17/24 13:05 Lymph % (Auto) 20.3 % 08/17/24 13:05 Clay % (Auto) 7.7 % 08/17/24 13:05 Eos % (Auto) 0.9 % 08/17/24 13:05 Baso % (Auto) 0.4 % 08/17/24 13:05 Neut # (Auto) 6.49 10^3/uL (1.8-7.7) 08/17/24 13:05 Lymph # (Auto) 1.9 10^3/uL (0.8-4.8) 08/17/24 13:05 Clay # (Auto) 0.7 10^3/uL (0.2-0.9) 08/17/24 13:05 Eos # (Auto) 0.1 10^3/uL (0.0-0.8) 08/17/24 13:05 Baso # (Auto) 0.0 10^3/uL (0.0-0.1) 08/17/24 13:05 Nucleated RBC % (auto) 0 % 08/17/24 13:05 Nucleated RBCs # 0.0 /100WBC 08/17/24 13:05 Sodium 139 mmol/L (136-145) 08/17/24 13:05 Potassium 4.5 mmol/L (3.5-5.1) 08/17/24 13:05 Chloride 102 mmol/L (98-107) 08/17/24 13:05 Carbon Dioxide 26 mmol/L (22-29) 08/17/24 13:05 Anion Gap 15.5 (5-19) 08/17/24 13:05 BUN 23 mg/dL (8-23) 08/17/24 13:05 Creatinine 1.3 mg/dL (0.7-1.2) H 08/17/24 13:05 GFR Calculation 55.8 mL/min (90-130) L 08/17/24 13:05 Glucose 128 mg/dL (65-115) H 08/17/24 13:05 Calculated Osmolality 293 mOsm/kg (285-295) 08/17/24 13:05 Calcium 9.0 mg/dL (8.5-10.5) 08/17/24 13:05 Total Bilirubin 0.9 mg/dL (0.15-1.2) 08/17/24 13:05 AST 33 U/L (0-40) 08/17/24 13:05 ALT 38 U/L (0-41) 08/17/24 13:05 Alkaline Phosphatase 122 U/L (40-130) 08/17/24 13:05 Troponin T Baseline 55 ng/L (0-15) H 08/17/24 13:05 Troponin T 120 Minute 105.9 ng/L (0-15) H 08/17/24 15:05 Delta Troponin T 50.9 ABS# (0-10) H* 08/17/24 15:05 Total Protein 6.2 g/dL (6.6-8.7) L 08/17/24 13:05 Albumin 4.0 g/dL (3.5-5.2) 08/17/24 13:05 Globulin 2.2 g/dL (1.3-4.6) 08/17/24 13:05 All radiology interpretation(s) finalized by discharge Discharge Plan Discharge Patient Disposition: Admitted As Inpatient Clinical Impression: Non-ST elevation NH (NSTEMI), Coronary artery disease Condition: Stable Coding Level of Care Code ED [employer]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
[2024-08-17 13:18] LABS: Basophils % 0.4 %; Eosinophils # 0.1 10^3/uL (0.0-0.8); Eosinophils % 0.9 %; Hematocrit 40.5 % (37-53); Lymphocytes # 1.9 10^3/uL (0.8-4.8); Lymphocytes % 20.3 %; Mean Corpuscular HGB Conc 33.1 g/dL (30-55); Mean Corpuscular Hemoglobin 29.8 pg (27-33); Mean Platelet Volume 11.1 fL (7.4-10.4); Monocytes # 0.7 10^3/uL (0.2-0.9); Monocytes % 7.7 %; Neutrophils # 6.49 10^3/uL (1.8-7.7); Neutrophils % 70.4 %; Nucleated Red Blood Cells % 0 %; Platelet Count 246 10^3/cmm (157-399); Red Cell Distribution Width 15.3 % (12.1-15.1); White Blood Count 9.22 10^3/uL (3.29-11.43)
[2024-08-17 13:37] LABS: Troponin(5th) Baseline 55 ng/L (0-15)
[2024-08-17 13:47] LABS: Alanine Aminotransferase 38 U/L (0-41); Alkaline Phosphatase 122 U/L (40-130); Anion Gap 15.5 (5-19); Aspartate Amino Transferase 33 U/L (0-40); Blood Urea Nitrogen 23 mg/dL (8-23); Carbon Dioxide 26 mmol/L (22-29); Chloride 102 mmol/L (98-107); Creatinine Clr Calc Pharmacy 70.4204; Globulin 2.2 g/dL (1.3-4.6); Glomerular Filtration Rate 55.8 mL/min (90-130); Glucose 128 mg/dL (65-115); Osmolality Calculated 293 mOsm/kg (285-295); Potassium 4.5 mmol/L (3.5-5.1); Sodium 139 mmol/L (136-145); Total Bilirubin 0.9 mg/dL (0.15-1.2); Total Protein 6.2 g/dL (6.6-8.7)
[2024-08-17 15:40] LABS: Troponin 5 2HR 105.9 ng/L (0-15); Troponin 5 2HR Delta 50.9 ABS# (0-10)
--- NOTE | 2024-08-17 15:53 | P.HP_ITS ---
Providers/Chief Complaint 2 Primary Care Provider: ANDRES Pettit Chief Complaint: Chest Pain History of Present Illness Amrik Alexander is a 63 year old male with history of nonischemic cardiomyopathy, endocarditis reduced EF 15%, patient was put on antibiotics he was deemed not a surgical candidate when there was concern for endocarditis with pacemaker lead infection, presented with chief complaint of right-sided chest pain which started around 7 in the morning. It was associated with shortness of breath and an episode of vomiting, no active fever, For his endocarditis he followed up with ID at [facility] Review of Systems 2 Eyes: Denies: change in vision ENMT: Denies: throat pain Card: Reports: chest pain Resp: Reports: dyspnea GI: Denies: abdominal pain Medications/Allergies Home Medications Medication Instructions Recorded Confirmed Last Taken Type blood-glucose meter (Blood Glucose #1 ea 07/06/20 08/17/24 Unknown Rx Monitoring kit) nebulizer machine with tubing and #1 ea 09/09/22 08/17/24 Unknown Rx mask lancets 33 gauge (BD Ultra Fine #100 ea 12/05/22 08/17/24 Unknown Rx Lancets) fluticasone propionate 50 2 spray intranasal DAILY PRN 08/17/23 08/17/24 Unknown History mcg/actuation nasal Allergy Symptoms spray,suspension (Flonase Allergy Relief) clopidogrel 75 mg tablet 75 mg PO DAILY #30 tabs 11/20/23 08/17/24 08/17/24 Rx dapagliflozin propanediol 10 mg 10 mg PO DAILY 02/27/24 08/17/24 08/17/24 History tablet (Farxiga) rosuvastatin 40 mg tablet 40 mg PO BEDTIME 02/27/24 08/17/24 08/16/24 History magnesium L-lactate 84 mg 84 mg PO DAILY 03/08/24 08/17/24 05/29/24 History tablet,extended release CPAP (Standard Cpap) #1 ea 04/09/24 08/17/24 Unknown Rx apixaban 5 mg tablet (Eliquis) 5 mg PO BID #180 tabs 04/14/24 08/17/24 08/17/24 Rx spironolactone 25 mg tablet 25 mg PO DAILY #90 tabs 04/14/24 08/17/24 08/17/24 Rx pantoprazole 40 mg tablet,delayed 40 mg PO BID #60 tabs 04/22/24 08/17/24 08/17/24 Rx release (Protonix) amiodarone 400 mg tablet 400 mg PO DAILY #90 tabs 05/10/24 08/17/24 08/17/24 Rx blood sugar diagnostic (Blood #100 ea 05/10/24 08/17/24 Unknown Rx Glucose Test strips) sertraline 100 mg tablet 100 mg PO QAM #30 tabs 05/18/24 08/17/24 08/17/24 Rx carvedilol 12.5 mg tablet 12.5 mg PO BID #60 tabs 06/01/24 08/17/24 08/17/24 Rx albuterol sulfate 2.5 mg/3 mL 2.5 mg (3 mL) inhalation QID PRN 06/03/24 08/17/24 Unknown Rx (0.083 %) solution for nebulization shortness of breath or wheezing #180 mL albuterol sulfate 90 mcg/actuation 2 inh inhalation Q6H PRN Shortness 06/03/24 08/17/24 Unknown Rx aerosol inhaler Of Breath #8.5 grams furosemide 40 mg tablet (Lasix) 40 mg PO QAM #30 tabs 06/03/24 08/17/24 08/17/24 Rx insulin glargine 100 unit/mL (3 30 unit (0.3 mL) SUBCUT BEDTIME 06/28/24 08/17/24 Unknown Rx mL) subcutaneous pen (Lantus #15 mL Solostar U-100 Insulin) alcohol swabs 1 pad topical DIRECTED #200 ea 08/05/24 08/17/24 Unknown Rx blood sugar diagnostic (Blood #200 ea 08/05/24 08/17/24 Unknown Rx Glucose Test strips) blood-glucose meter #1 ea 08/05/24 08/17/24 Unknown Rx lancets #200 ea 08/05/24 08/17/24 Unknown Rx allopurinol 300 mg tablet 300 mg PO QAM 08/17/24 08/17/24 08/17/24 History levocetirizine 5 mg tablet 5 mg PO DAILY 08/17/24 08/17/24 Unknown History potassium citrate 10 mEq (1,080 20 meq PO BID 08/17/24 08/17/24 08/17/24 History mg) tablet,extended release Allergies Allergy/AdvReac Type Severity Reaction Status Date / Time isosorbide Allergy unknown Verified 07/05/24 08:32 Penicillins AdvReac rash Verified 07/05/24 08:32 PFSH Acute 2 PFSH: Medical History Type 2 diabetes mellitus Cardiac resynchronization therapy defibrillator (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 [place], 07/11/2020 Cardiomyopathy Mixed hyperlipidemia Hypertension CVA (cerebral vascular accident) PVCs (premature ventricular contractions) Hypomagnesemia Infarction of spleen Nausea & vomiting Gastroparesis COPD (chronic obstructive pulmonary disease) Major depressive disorder, recurrent episode, mild degree Major depressive disorder in partial remission Allergic rhinitis Bipolar II disorder Diabetes Non-ST elevation CO (NSTEMI) Uses bilevel positive airway pressure (BPAP) ventilation at home 12/8cm Dysarthria Unstable angina Nonischemic congestive cardiomyopathy Chronic low back pain Elevated blood uric acid level History of sleep study 2017 at [facility]: Optimal pressure settings with BiPAP found to be 12/8 cm COVID-19 Wound infection following procedure infection with defibrillator lead revision, removed , scarring left subclavian area from this GERD (gastroesophageal reflux disease) ALBERTO (obstructive sleep apnea) C. difficile diarrhea Cataracts, bilateral CHF (congestive heart failure) Urolithiasis Multi stone former, calcium oxalate mono and dihydrate. Also calcium phosphate. Multiple interventions including endoscopy with laser lithotripsy and ESWL. Metabolic treatment with potassium citrate Hemorrhoids Psychiatric care Right ureteral calculus Osteoarthritis of hands, bilateral Pacemaker Surgical History S/P epidural steroid injection Status post hemorrhoidectomy Hx of umbilical hernia repair Hx of lithotripsy History of urethral stent H/O esophagogastroduodenoscopy (02/27/21) gastritis, duodenitis History of colonoscopy (02/27/21) descending colon polyp, hemorrhoids History of carpal tunnel release of both wrists History of permanent cardiac pacemaker placement Hx of cataract surgery Hx of shoulder surgery Family History Grandfather CAD (coronary artery disease) Brother Cancer colon cancer Diabetes Mother Diabetes Father No problems noted. Other Hypertension Rheumatoid arthritis Social History Smoking and tobacco/nicotine status: never used tobacco/nicotine Second hand smoke exposure: No Alcohol intake: former Year of sobriety/quit date alcohol: 1997 Substance/Drug Use: former Date of last use: 1997 Caregiver/support person: Yes Lives independently: Yes Household members: spouse Marital status: service: No Current occupational status: disabled Current gender identity: Male Special fernando needs: No Agree to transfusion: Yes Vitals/I&O/Wt Last Vital Signs Temp 97.5 F L 08/17/24 12:39 Pulse 68 08/17/24 14:30 Resp 69 H 08/17/24 13:30 BP 124/91 08/17/24 14:30 Pulse Ox 98 08/17/24 14:30 O2 Del Method Room Air 08/17/24 14:30 Weight last 48 hrs Weight 107.955 kg Physical Exam 2 Narrative: White male No active chest pain Hemodynamic stable A-fib without RVR Currently on room air Bilateral breath sounds with diminished at the bases Abdomen soft No sign of focal deficit Pleasant and cooperative Mild signs of CHF Data 08/17/24 13:05 08/17/24 13:05 A&P Assessment and plan (1) Non-ST elevation CO (NSTEMI): Plan Non-STEMI Underlying history of nonischemic cardiomyopathy with reduced ejection fraction EF 15% Start ACS protocol No active chest pain Request echo, therapeutic Lovenox to be used, hold Eliquis Start aspirin and Plavix Continue statins Cardiology consulted Full code N.p.o. after midnight A-fib without RVR Continue AV bert blocking agent, Eliquis transition to Lovenox Attestations 2 Medical Necessity Statement*: More than 2 midnights anticipated for management of non-STEMI Diagnoses Non-ST elevation CO (NSTEMI) I21.4
--- NOTE | 2024-08-17 16:54 | PC.NURSE ---
pt report called to [facility] [address] RAMIREZ.
--- NOTE | 2024-08-17 17:20 | USCV_ITS ---
Amrik Alexander Age: 63 Gender: M : 1960 Exam Date: 08/17/2024 20:30 Ordering Phys: Khalida Gomez MD Technologist: NABIL [place]am [place] [facility] [place] Indication: nstemi, hx Afib, pacer/defibrillator, DM2, CHF, COPD, CVA, HTN, ALBERTO BP: 111 / 79 HR: 69 Rhythm: Atrial fibrillation Technical Quality: Adequate MEASUREMENTS (Male / Female) Normal Values 2D ECHO LV Diastolic Diameter PLAX 6.4 cm 4.2 - 5.9 / 3.9 - 5.3 cm IVS Diastolic Thickness 0.8 cm 0.6 - 1.0 / 0.6 - 0.9 cm IVS Systolic Thickness 1.1 cm LVPW Diastolic Thickness 1.8 cm 0.6 - 1.0 / 0.6 - 0.9 cm LVPW Systolic Thickness 2.1 cm LVOT Diameter 2.0 cm LV Ejection Fraction 2D Teich 28.8 % LV Ejection Fraction MOD 4C 29.9 % LV Ejection Fraction MOD 2C 27.2 % LV Ejection Fraction 2C AL 26.6 % LA Diameter 5.3 cm Aorta at Sinotubular Diameter 2.8 cm IVC Diameter 3.0 cm M-MODE LA Ao Ratio MM 1.6 AV Cusp Separation MM 2.0 cm DOPPLER AV Peak Velocity 80.0 cm/s LVOT Peak Velocity 54.0 cm/s AV Area Cont Eq vti 1.9 cm squared AV Area Cont Eq pk 2.2 cm squared MV Peak Velocity 100.0 cm/s MV Area PHT 3.8 cm squared Mitral E to A Ratio 125.0 TV Peak Velocity 324.0 cm/s TR Peak Velocity 326.0 cm/s TR Peak Gradient 42.5 mmHg TV Peak E Velocity 46.0 cm/s Right Atrial Pressure 10.0 mmHg Pulmonary Artery Systolic Pressu 52.5 mmHg PV Peak Velocity 77.0 cm/s FINDINGS Left Ventricle Moderately increased left ventricular cavity size. Severely decreased left ventricular systolic function. Left ventricular ejection fraction is estimated at 28 %. Global left ventricular hypokinesis. Grade IV/IV diastolic dysfunction (irreversible restrictive filling pattern), severely elevated filling pressures. Right Ventricle Normal right ventricular size. Catheter/pacemaker wire visualized in the right ventricle. Moderate pulmonary hypertension, RVSP 52.5 mmHg. Right Atrium Normal right atrial size. Catheter/pacemaker wire in the right atrial cavity. Left Atrium Moderately increased left atrial size. Mitral Valve Moderately thickened mitral valve. No mitral valve stenosis. Severe mitral valve regurgitation. Aortic Valve Moderate aortic valve calcification. No aortic valve stenosis. Trace aortic valve regurgitation. Tricuspid Valve Thickened tricuspid valve. No tricuspid valve stenosis. Moderate tricuspid valve regurgitation. Pulmonic Valve Structurally normal pulmonic valve without significant stenosis. There is no pulmonic regurgitation. Pericardium Normal pericardium without effusion. Aorta Normal ascending aorta dimension. IVC The inferior vena cava appears normal. CONCLUSIONS Moderately increased left ventricular cavity size. Severely decreased left ventricular systolic function. Left ventricular ejection fraction is estimated at 28 %. Global left ventricular hypokinesis. Grade IV/IV diastolic dysfunction (irreversible restrictive filling pattern), severely elevated filling pressures. Normal right ventricular size. Catheter/pacemaker wire visualized in the right ventricle. Moderate pulmonary hypertension, RVSP 52.5 mmHg. Moderately thickened mitral valve. No mitral valve stenosis. Severe mitral valve regurgitation. Moderately increased left atrial size. Thickened tricuspid valve. No tricuspid valve stenosis. Moderate tricuspid valve regurgitation. There is no pericardial effusion. Right atrial pressure is around 18 mm of mercury. Khalida Toth MD (Electronically Signed) Final Date: 18 August 2024 09:04 S
[2024-08-17 17:33] LABS: Glucose Point of Care 93 mg/dL (70-110)
[2024-08-17] MEDS: pantoprazole DR 40 mg Tablet PO (18:01)
[2024-08-17] MEDS: carvedilol 12.5 mg Tablet PO (18:01)
--- NOTE | 2024-08-17 18:46 | ECG_ITS ---
[facility] Test Date: 2024-08-17 Pat Name: Amrik Alexander Department: Room: 103 Gender: Male Identification Technician: : 1960 Requested By: Leona Estrada Order Number: [id number] Reading MD: VAUGHN RAMACHANDRAN Measurements Intervals [place] Rate: 70 P: 34 NJ: 168 QRS: 190 QRSD: 214 T: 22 QT: 517 QTc: 559 Interpretive Statements ELECTRONIC ATRIAL PACEMAKER ELECTRONIC VENTRICULAR PACEMAKER ABNORMAL RHYTHM ECG Compared to ECG 08/17/2024 14:57:25 No significant changes Electronically Signed On 08-18-2024 20:12:22 CDT by VAUGHN RAMACHANDRAN [email or web address] ([email or web address]) [facility] medical [email or web address] grove city [id number]
--- NOTE | 2024-08-17 19:45 | P.CONIM_ITS ---
Providers/Reason For Consult 2 Consulting Physician/Specialty*: Reese Andrew MD/ Cardiology Reason for Consult*: NSTEMI Requesting Physician: Dr Kc Attending Physician: Khalida Gomez MD Primary Care Provider: ANDRES Pettit History of Present Illness History of Present Illness Amrik Alexander is a 63 year old male with past medical history of nonischemic cardiomyopathy, EF of 15%, atrial fibrillation, endocarditis who presented to hospital with right-sided chest discomfort. Had tightness in the jaw. Troponin increased from baseline of 55 to 6-hour level of 291. EKG shows paced rhythm. Review of Systems 2 Eyes: Denies: change in vision ENMT: Denies: throat pain Card: Reports: chest pain Resp: Reports: dyspnea GI: Denies: abdominal pain Medications/Allergies Home Medications Medication Instructions Recorded Confirmed Last Taken Type blood-glucose meter (Blood Glucose #1 ea 07/06/20 08/17/24 Unknown Rx Monitoring kit) nebulizer machine with tubing and #1 ea 09/09/22 08/17/24 Unknown Rx mask lancets 33 gauge (BD Ultra Fine #100 ea 12/05/22 08/17/24 Unknown Rx Lancets) fluticasone propionate 50 2 spray intranasal DAILY PRN 08/17/23 08/17/24 Unknown History mcg/actuation nasal Allergy Symptoms spray,suspension (Flonase Allergy Relief) clopidogrel 75 mg tablet 75 mg PO DAILY #30 tabs 11/20/23 08/17/24 08/17/24 Rx dapagliflozin propanediol 10 mg 10 mg PO DAILY 02/27/24 08/17/24 08/17/24 History tablet (Farxiga) rosuvastatin 40 mg tablet 40 mg PO BEDTIME 02/27/24 08/17/24 08/16/24 History magnesium L-lactate 84 mg 84 mg PO DAILY 03/08/24 08/17/24 05/29/24 History tablet,extended release CPAP (Standard Cpap) #1 ea 04/09/24 08/17/24 Unknown Rx apixaban 5 mg tablet (Eliquis) 5 mg PO BID #180 tabs 04/14/24 08/17/24 08/17/24 Rx spironolactone 25 mg tablet 25 mg PO DAILY #90 tabs 04/14/24 08/17/24 08/17/24 Rx pantoprazole 40 mg tablet,delayed 40 mg PO BID #60 tabs 04/22/24 08/17/24 08/17/24 Rx release (Protonix) amiodarone 400 mg tablet 400 mg PO DAILY #90 tabs 05/10/24 08/17/24 08/17/24 Rx blood sugar diagnostic (Blood #100 ea 05/10/24 08/17/24 Unknown Rx Glucose Test strips) sertraline 100 mg tablet 100 mg PO QAM #30 tabs 05/18/24 08/17/24 08/17/24 Rx carvedilol 12.5 mg tablet 12.5 mg PO BID #60 tabs 06/01/24 08/17/24 08/17/24 Rx albuterol sulfate 2.5 mg/3 mL 2.5 mg (3 mL) inhalation QID PRN 06/03/24 08/17/24 Unknown Rx (0.083 %) solution for nebulization shortness of breath or wheezing #180 mL albuterol sulfate 90 mcg/actuation 2 inh inhalation Q6H PRN Shortness 06/03/24 08/17/24 Unknown Rx aerosol inhaler Of Breath #8.5 grams furosemide 40 mg tablet (Lasix) 40 mg PO QAM #30 tabs 06/03/24 08/17/24 08/17/24 Rx insulin glargine 100 unit/mL (3 30 unit (0.3 mL) SUBCUT BEDTIME 06/28/24 08/17/24 Unknown Rx mL) subcutaneous pen (Lantus #15 mL Solostar U-100 Insulin) alcohol swabs 1 pad topical DIRECTED #200 ea 08/05/24 08/17/24 Unknown Rx blood sugar diagnostic (Blood #200 ea 08/05/24 08/17/24 Unknown Rx Glucose Test strips) blood-glucose meter #1 ea 08/05/24 08/17/24 Unknown Rx lancets #200 ea 08/05/24 08/17/24 Unknown Rx allopurinol 300 mg tablet 300 mg PO QAM 08/17/24 08/17/24 08/17/24 History levocetirizine 5 mg tablet 5 mg PO DAILY 08/17/24 08/17/24 Unknown History potassium citrate 10 mEq (1,080 20 meq PO BID 08/17/24 08/17/24 08/17/24 History mg) tablet,extended release Allergies Allergy/AdvReac Type Severity Reaction Status Date / Time isosorbide Allergy unknown Verified 07/05/24 08:32 Penicillins AdvReac rash Verified 07/05/24 08:32 Current Medications Generic Name Dose Route Start Last Admin Trade Name Urbanq PRN Reason Stop Dose Admin Carvedilol 12.5 mg 08/17/24 18:00 08/17/24 18:01 Carvedilol 12.5 Mg Tablet PO 12.5 mg BID JOSHUA Administration Insulin Human Lispro 0 unit 08/17/24 18:00 08/17/24 18:01 Insulin Lispro 100 Unit/1 Ml SUBCUT Not Given [facility] Protocol Pantoprazole Sodium 40 mg 08/17/24 18:00 08/17/24 18:[address] 40 Mg Tablet PO 40 mg BID JOSHUA Administration PFSH Acute 2 PFSH: Medical History Type 2 diabetes mellitus Cardiac resynchronization therapy defibrillator (PSYCHOLOGY ASSISTANT-D) in place [employer] [address] [place], 07/11/2020 Cardiomyopathy Mixed hyperlipidemia Hypertension CVA (cerebral vascular accident) PVCs (premature ventricular contractions) Hypomagnesemia Infarction of spleen Nausea & vomiting Gastroparesis COPD (chronic obstructive pulmonary disease) Major depressive disorder, recurrent episode, mild degree Major depressive disorder in partial remission Allergic rhinitis Bipolar II disorder Diabetes Non-ST elevation NM (NSTEMI) Uses bilevel positive airway pressure (BPAP) ventilation at home 12/8cm Dysarthria Unstable angina Nonischemic congestive cardiomyopathy Chronic low back pain Elevated blood uric acid level History of sleep study 2017 at [facility]: Optimal pressure settings with BiPAP found to be 12/8 cm COVID-19 Wound infection following procedure infection with defibrillator lead revision, removed , scarring left subclavian area from this GERD (gastroesophageal reflux disease) ALBERTO (obstructive sleep apnea) C. difficile diarrhea Cataracts, bilateral CHF (congestive heart failure) Urolithiasis Multi stone former, calcium oxalate mono and dihydrate. Also calcium phosphate. Multiple interventions including endoscopy with laser lithotripsy and ESWL. Metabolic treatment with potassium citrate Hemorrhoids Psychiatric care Right ureteral calculus Osteoarthritis of hands, bilateral Pacemaker Surgical History S/P epidural steroid injection Status post hemorrhoidectomy Hx of umbilical hernia repair Hx of lithotripsy History of urethral stent H/O esophagogastroduodenoscopy (02/27/21) gastritis, duodenitis History of colonoscopy (02/27/21) descending colon polyp, hemorrhoids History of carpal tunnel release of both wrists History of permanent cardiac pacemaker placement Hx of cataract surgery Hx of shoulder surgery Family History Grandfather CAD (coronary artery disease) Brother Cancer colon cancer Diabetes Mother Diabetes Father No problems noted. Other Hypertension Rheumatoid arthritis Social History Smoking and tobacco/nicotine status: never used tobacco/nicotine Second hand smoke exposure: No Alcohol intake: former Year of sobriety/quit date alcohol: 1997 Substance/Drug Use: former Date of last use: 1997 Caregiver/support person: Yes Lives independently: Yes Household members: spouse Marital status: service: No Current occupational status: disabled Current gender identity: Male Special fernando needs: No Agree to transfusion: Yes Vitals/I&O/Wt Last Vital Signs Temp 98.2 F 08/17/24 17:56 Pulse 71 08/17/24 17:56 Resp 21 H 08/17/24 17:56 BP 112/82 08/17/24 17:56 Pulse Ox 100 08/17/24 17:56 O2 Del Method Room Air 08/17/24 17:56 08/17/24 08/17/24 08/17/24 06:59 14:59 22:59 Intake Total 240 / 240 Balance 240 / 240 Weight last 48 hrs Weight 238 lb Physical Exam 2 Narrative: GENERAL: Patient is alert, awake and oriented x3. [] NECK: No jugular vein distension. [] HEENT: No cyanosis. No icterus. No pallor. [] HEART: Regular S1 and S2. Grade 3/6 systolic murmur LUNGS: Clear to auscultate bilaterally. [] CENTRAL NERVOUS SYSTEM: Grossly nonfocal. [] EXTREMITIES: Lower extremities with 1+ edema bilaterally. Data 08/18/24 03:55 08/18/24 03:55 A&P Assessment and plan (1) Non-ST elevation NM (NSTEMI): (2) CHF (congestive heart failure): Qualifiers: Heart failure type: systolic Heart failure chronicity: chronic Qualified Code(s): I50.22 - Chronic systolic (congestive) heart failure (3) Cardiac resynchronization therapy defibrillator (PSYCHOLOGY ASSISTANT-D) in place: (4) Cardiomyopathy: Qualifiers: Cardiomyopathy type: dilated Qualified Code(s): I42.0 - Dilated cardiomyopathy (5) Mixed hyperlipidemia: (6) Hypertension: Qualifiers: Hypertension type: primary hypertension Qualified Code(s): I10 - Essential (primary) hypertension Plan Patient has history of nonischemic cardiomyopathy. He has presented with chest discomfort episodes with significant troponin elevation. Findings consistent with non-ST elevation NM. Proceed with coronary angiogram with possible PCI. Plan to do it tomorrow in the afternoon as he had Eliquis this morning. Can have breakfast in the AM and then NPO after that. Continue IV anticoagulation at this time. Continue aspirin. He had endocarditis earlier this year and was transferred to [facility]. However given low EF, decision was made to proceed with antibiotic therapy only and not perform surgery. Currently not in sepsis/showing signs of active infection. Thank you for involving us with care of this patient. We will continue to follow. Please call with questions. Consult Attestations 2 Medical Necessity Statement: Care expected to cross 2 midnights Coding Level of Care Code Acute Code for [facility] Diagnoses Non-ST elevation NM (NSTEMI) I21.4 Chronic systolic congestive heart failure I50.22 Heart failure type: systolic Heart failure chronicity: chronic Cardiac resynchronization therapy defibrillator (PSYCHOLOGY ASSISTANT-D) in place Z95.810 Dilated cardiomyopathy I42.0 Cardiomyopathy type: dilated Mixed hyperlipidemia E78.2 Primary hypertension I10 Hypertension type: primary hypertension
[2024-08-17 19:49] LABS: Troponin 5 6HR 291.9 ng/L (0-15); Troponin 5 6HR Delta 236.9 ng/L (0-12)
[2024-08-17 20:08] LABS: Glucose Point of Care 196 mg/dL (70-110)
[2024-08-17 20:08] LABS: Glucose Point of Care 120 mg/dL (70-110)
[2024-08-17] MEDS: enoxaparin 100 mg/mL Syringe SUBCUT (21:04)
[2024-08-17] MEDS: atorvastatin 40 mg Tablet 80 MG PO (21:04)
[2024-08-17] MEDS: insulin glargine 100 units/1 mL 25 UNIT SUBCUT (21:04)
[2024-08-18] VITALS (16 sets, daily range): BP systolic 91–119; BP diastolic 58–86; PULSE 70–76; RESP 8–30; TEMP 36.4–37.1; O2SAT 92–98
[2024-08-18 04:30] LABS: Basophils % 0.5 %; Eosinophils # 0.2 10^3/uL (0.0-0.8); Hematocrit 38.9 % (37-53); Lymphocytes # 2.3 10^3/uL (0.8-4.8); Lymphocytes % 26.4 %; Mean Corpuscular HGB Conc 32.4 g/dL (30-55); Mean Corpuscular Hemoglobin 29.4 pg (27-33); Mean Corpuscular Volume 90.9 fl (82-101); Mean Platelet Volume 11.3 fL (7.4-10.4); Monocytes # 0.7 10^3/uL (0.2-0.9); Monocytes % 8.5 %; Neutrophils # 5.43 10^3/uL (1.8-7.7); Neutrophils % 62.3 %; Nucleated Red Blood Cells % 0 %; Platelet Count 218 10^3/cmm (157-399); Red Blood Count 4.28 10^6/uL (3.85-5.65); Red Cell Distribution Width 15.3 % (12.1-15.1); White Blood Count 8.71 10^3/uL (3.29-11.43)
[2024-08-18 04:49] LABS: Anion Gap 13.8 (5-19); Blood Urea Nitrogen 21 mg/dL (8-23); Calcium 8.4 mg/dL (8.5-10.5); Carbon Dioxide 25 mmol/L (22-29); Chloride 102 mmol/L (98-107); Creatinine Clr Calc Pharmacy 76.2888; Glomerular Filtration Rate 61.1 mL/min (90-130); Glucose 124 mg/dL (65-115); Magnesium 1.8 mg/dL (1.7-2.3); Osmolality Calculated 288 mOsm/kg (285-295); Potassium 3.8 mmol/L (3.5-5.1); Sodium 137 mmol/L (136-145)
[2024-08-18] MEDS: FUROsemide 40 mg Tablet PO (05:57)
[2024-08-18] MEDS: allopurinol 300 mg Tablet PO (05:57)
[2024-08-18 06:43] LABS: Glucose Point of Care 125 mg/dL (70-110)
--- NOTE | 2024-08-18 07:17 | PM.PN ---
Subjective Subjective: Patient's coronary angiogram did not reveal significant coronary artery disease. No chest pain. Vitals/I&O/Wt Last Vital Signs Temp 98.0 F 08/18/24 04:00 Pulse 72 08/18/24 06:00 Resp 20 H 08/18/24 04:00 BP 98/70 08/18/24 04:00 Pulse Ox 98 08/18/24 04:05 O2 Del Method CPAP 08/18/24 04:00 FiO2 21 08/18/24 04:05 08/17/24 08/18/24 08/18/24 22:59 06:59 14:59 Intake Total 720 / 720 120 / 840 Balance 720 / 720 120 / 840 Weight last 48 hrs Weight 234 lb 11.2 oz Weight 238 lb Physical Exam Narrative: GENERAL: Patient is alert, awake and oriented x3. [] NECK: No jugular vein distension. [] HEENT: No cyanosis. No icterus. No pallor. [] HEART: Regular S1 and S2. Grade 3/6 systolic murmur LUNGS: Clear to auscultate bilaterally. [] CENTRAL NERVOUS SYSTEM: Grossly nonfocal. [] EXTREMITIES: Lower extremities with 1+ edema bilaterally. Data 08/19/24 02:49 08/19/24 02:49 A&P Assessment and plan (1) Non-ST elevation AL (NSTEMI): (2) CHF (congestive heart failure): Qualifiers: Heart failure type: systolic Heart failure chronicity: chronic Qualified Code(s): I50.22 - Chronic systolic (congestive) heart failure (3) Cardiac resynchronization therapy defibrillator (BUSINESS DEVELOPMENT REPRESENTATIVE-D) in place: (4) Cardiomyopathy: Qualifiers: Cardiomyopathy type: dilated Qualified Code(s): I42.0 - Dilated cardiomyopathy (5) Mixed hyperlipidemia: (6) Hypertension: Qualifiers: Hypertension type: primary hypertension Qualified Code(s): I10 - Essential (primary) hypertension Plan Patient is stable. No more chest pain symptoms. Coronary angiogram demonstrates patent coronary arteries. Will resume home medications Thank you for involving us with care of this patient. We will continue to follow. Please call with questions. Attestations Medical Necessity Statement*: Care expected to cross 2 midnights. Coding Level of Care Code Acute Code for [facility] Diagnoses Non-ST elevation AL (NSTEMI) I21.4 Chronic systolic congestive heart failure I50.22 Heart failure type: systolic Heart failure chronicity: chronic Cardiac resynchronization therapy defibrillator (BUSINESS DEVELOPMENT REPRESENTATIVE-D) in place Z95.810 Dilated cardiomyopathy I42.0 Cardiomyopathy type: dilated Mixed hyperlipidemia E78.2 Primary hypertension I10 Hypertension type: primary hypertension
[2024-08-18] MEDS: aspirin 81 mg EC Tablet PO (08:20)
[2024-08-18] MEDS: carvedilol 12.5 mg Tablet PO ×2 (08:20→17:05)
[2024-08-18] MEDS: enoxaparin 100 mg/mL Syringe SUBCUT ×2 (08:20→20:22)
[2024-08-18] MEDS: clopidogrel 75 mg Tablet PO (08:20)
[2024-08-18] MEDS: potassium chloride ER 20 mEq Tablet PO (08:20)
[2024-08-18] MEDS: pantoprazole DR 40 mg Tablet PO ×2 (08:20→17:06)
[2024-08-18] MEDS: amiodarone 200 mg Tablet 400 MG PO (08:20)
--- NOTE | 2024-08-18 09:14 | PC.RESP ---
Pt states he uses cpap at home and [facility]. Pt does not know his machine settings. Spoke to Jeanie at [facility] who states pt has BIPAP with setting of 12/8.
[2024-08-18 12:01] LABS: Glucose Point of Care 154 mg/dL (70-110)
--- NOTE | 2024-08-18 12:52 | P.PN_ITS ---
Subjective 2 Subjective: Plan for angiogram today No active chest pain Hemodynamically stable Vitals/I&O/Wt Last Vital Signs Temp 97.5 F L 08/18/24 11:42 Pulse 70 08/18/24 11:42 Resp 30 H 08/18/24 11:42 BP 114/68 08/18/24 11:42 Pulse Ox 98 08/18/24 11:42 O2 Del Method Room Air 08/18/24 11:42 FiO2 21 08/18/24 10:30 08/17/24 08/18/24 08/18/24 22:59 06:59 14:59 Intake Total 720 / 720 120 / 840 Balance 720 / 720 120 / 840 Weight last 48 hrs Weight 106.458 kg Weight 107.955 kg Physical Exam 2 Narrative: Pleasant cooperative No active chest pain Sitting at the bedside Currently on room air Pleasant cooperative GCS 15 Data 08/18/24 03:55 08/18/24 03:55 A&P Assessment and plan (1) Non-ST elevation CT (NSTEMI): (2) CHF (congestive heart failure): Qualifiers: Heart failure type: systolic Heart failure chronicity: chronic Qualified Code(s): I50.22 - Chronic systolic (congestive) heart failure (3) Cardiac resynchronization therapy defibrillator (PATIENT REGISTRATION REP-D) in place: (4) Cardiomyopathy: Qualifiers: Cardiomyopathy type: dilated Qualified Code(s): I42.0 - Dilated cardiomyopathy (5) Mixed hyperlipidemia: (6) Hypertension: Qualifiers: Hypertension type: primary hypertension Qualified Code(s): I10 - Essential (primary) hypertension Plan Non-STEMI Plan for angiogram today Finish 48 hours of ACS protocol Plan to discharge by tomorrow N.p.o. for today Continue therapeutic Lovenox along aspirin and Plavix No active signs of reduced ejection fraction heart failure exacerbation Currently euvolemic Hemodynamically stable doing well on room air Full code Start cardiac diet after procedure today Attestations 2 Medical Necessity Statement*: Discharge likely by tomorrow Diagnoses Non-ST elevation CT (NSTEMI) I21.4 Chronic systolic congestive heart failure I50.22 Heart failure type: systolic Heart failure chronicity: chronic Cardiac resynchronization therapy defibrillator (PATIENT REGISTRATION REP-D) in place Z95.810 Dilated cardiomyopathy I42.0 Cardiomyopathy type: dilated Mixed hyperlipidemia E78.2 Primary hypertension I10 Hypertension type: primary hypertension
--- NOTE | 2024-08-18 14:52 | XACV_ITS ---
Exam Room: 2 Ht: 175 cm Wt: 106 kg BSA: 2.31 m2 Gender: Male : 1960 Any Known Allergies: Other Exam Priority: Routine Procedure(s): Procedure Description: Diagnostic procedure Procedure Description: Coronary Angiography Diagnostic Cath Status: Elective Diagnostic Findings * Left Main has no significant disease. * Circumflex has no significant = disease. * Right Coronary Artery has no significant disease. * Proximal Left Anterior Descending: minimal 30% stenosis, RANJAN: 3 flow. * Coronary angiography shows co-dominance. Conclusions 1. Non obstructive coronary artery disease. Recommendations * Aggressive risk factor control. * Outpatient cardiology follow up in 2 weeks. Interventional RX Recommendation: medical therapy and/or counseling Diagnostic RX Recommendation: medical therapy and/or counseling Anticoagulation: Heparin Pressures Phase:Rest AO : 163 / 81 ( 100 ) @ 5:41:00 PM Clinical Evaluation EBL: 5mL-10mL Procedural Details Procedure Consent Obtained. Admit Source: In Patient. Pre-Procedure Time Out. Identified patient by full name and date of as verbalized by the patient/guarantor. Does the consent match the physician's order: Yes. Accurate & Complete Informed Consent: Yes. Inpatient/Outpatient History & Physical on Chart: Yes. If H&P is completed, is and addenduem needed: No; If yes, is the addendum complete: N/A. Visualize and Verify Site with Patient/Guarantor: N/A. Relevant Radiology Images available: N/A. The risks, benefits, and alternatives of sedation and/or procedure were discussed by physician. The patient agrees to continue. Procedure started. [facility] Clinical Fraility Score: 3: Managing Well. Hand Spring Former Indications: ACS > 24 hours. Chest Pain Symptom Assessment: Typical Angina Symptoms. Correct patient, site and procedure confirmed by cath team. Current diagnosis: NSTEMI. PERRLA. Strong, equal hand financial sales advisor bilaterally. Lungs clear x 5 lobes. IV Site on Arrival: 20 gauge in the right forearm. Pre Procedural Pulses: bilateral radial was 3+. Oxygen started at 2liters/min via nasal canula. right groin was prepped with chloroprep then draped in the usual sterile fashion. right radial was prepped with chloroprep then draped in the usual sterile fashion. Physician notified. Baseline sample Acquired. HR: 74 BPM. Physician arrived. Physician scrubbed in. Immediate Pre-Procedure Time Out. Correct Patient: Yes; Correct Procedure: Yes; Correct Site: Yes; Correct Patient Position: Yes; Correct Supplies: Yes; Dried Flammable Prep: Yes; Blood Products Available: No;. Lidocaine 1% infiltrated to the right radial. Arterial access obtained. A 5 [place] TIG catheter in over wire. Multiple views taken of left coronary artery. Catheter redirected to the RCA. Multiple views taken of right coronary artery. Catheter removed over the exchange wire. Wire out. A TR Band was successful obtaining hemostatsis at the Right Radial artery insertion site. Physician scrubbed out. Post Procedure: Pulses reassessed and unchanged. PERRLA. Strong, equal hand financial sales advisor bilaterally. No VTE prophylaxis required. Medication's Wasted: Lidocaine 1% = 18 mL. Medication's Wasted: Nitro = 49.8 mg. Medication's Wasted: Heparin = 1000 unit. Medication's Wasted: Other = Fetanyl 50 mcg. Medication's Wasted: Other = Diphenhydramine 25mg. Total IV fluids: 25 mL. Complications: None. Estimated blood loss: 5mL-10mL. Responsiveness - Normal response to verbal stimuli; alert and oriented, PERRLA. Airway - Unaffected, no intervention required; spontaneous ventilation. Circulation: W/N/L, pulses unchanged. Nausea/Vomiting: No. Procedure completed. Patient transferred by bed to 1st floor. Vital chart was stopped. Access Site Site: Right Radial artery Sheath Size: 6 Fr Hemostasis Method: TR Band Hemostasis Success: Successful Procedure Medications Start: 4:30 PM Stop: 4:30 PM Medication: Diphendryamine Amount: 25 mg Route: I.V. Start: 4:34 PM Stop: 4:34 PM Medication: Versed Amount: 1 mg Route: I.V. Start: 4:34 PM Stop: 4:34 PM Medication: Fentanyl Amount: 50 mcg Route: I.V. Start: 4:39 PM Stop: 4:39 PM Medication: Nitrogylcerin Amount: 200 mcg Route: I.A. Start: 4:40 PM Stop: 4:40 PM Medication: Heparin Amount: 5000 units Route: I.V. Start: 4:42 PM Stop: 4:42 PM Medication: Versed Amount: 1 mg Route: I.V. I, the attending physician, have reviewed and verified all procedure medications. Yes, all medications given per verbal order History/Risk Factors Hypertension: Yes Dyslipidemia: Yes Peripheral Arterial Disease (PAD): No Myocardial Infarction (DE): Yes Obesity: Yes Renal Disease: No Tobacco Use: Former Prior Interventions PCI: No CABG: No Valve Surgery: No Report Signatures Finalized by Reese Andrew MD on 08/21/2024 07:04 PM
--- NOTE | 2024-08-18 16:14 | PC.NURSE ---
Patient is leaving the unit to recyclable materials collector at 1615.
[2024-08-18 16:18] LABS: Glucose Point of Care 96 mg/dL (70-110)
--- NOTE | 2024-08-18 16:33 | W.PM.OPSUD ---
Surgery/Procedure H&P Update DATE OF PROCEDURE: August 18, 2024 DATE H&P PERFORMED: 08/18/24 H&P UPDATE INFORMATION: I have reviewed H&P completed within last 30 days, I have examined patient prior to procedure and No changes to prior documentation PREOP DIAGNOSIS: NSTEMI PRIMARY INDICATION FOR PROCEDURE: NSTEMI PLANNED PROCEDURE: Left heart cath with possible percutaneous coronary intervention PATIENT REASSESSED PRIOR TO SEDATION, WITH NO CHANGE NOTED: Yes PHYSICAL EXAM: alert, oriented x 3, clear to auscultation bilaterally and regular rate & rhythm AIRWAY EVAL/ANESTHESIA PLAN: normal airway, ASA III, Local Anesthesia, Risks, benefits & alternatives of sedation and/or procedure discussed and Patient agrees to continue as planned ADDITIONAL INFORMATION: Moderate sedation
--- NOTE | 2024-08-18 17:04 | PC.NURSE ---
Patient returned to CSU from microbiological lab technician at 1655, Came back with a right radial TR-band.
[2024-08-18] MEDS: insulin glargine 100 units/1 mL 25 UNIT SUBCUT (20:21)
[2024-08-18] MEDS: atorvastatin 40 mg Tablet 80 MG PO (20:21)
[2024-08-18 20:23] LABS: Glucose Point of Care 251 mg/dL (70-110)
[2024-08-19] VITALS (7 sets, daily range): BP systolic 104–120; BP diastolic 67–77; PULSE 70–76; RESP 16–27; TEMP 36.4–36.6; O2SAT 93–98
[2024-08-19 03:14] LABS: Basophils % 0.5 %; Eosinophils # 0.2 10^3/uL (0.0-0.8); Eosinophils % 2.3 %; Hematocrit 39.8 % (37-53); Lymphocytes # 2.1 10^3/uL (0.8-4.8); Lymphocytes % 28.1 %; Mean Corpuscular HGB Conc 32.2 g/dL (30-55); Mean Corpuscular Hemoglobin 29.2 pg (27-33); Mean Corpuscular Volume 90.9 fl (82-101); Mean Platelet Volume 11.2 fL (7.4-10.4); Monocytes # 0.8 10^3/uL (0.2-0.9); Monocytes % 10.5 %; Neutrophils # 4.27 10^3/uL (1.8-7.7); Neutrophils % 58.2 %; Nucleated Red Blood Cells % 0 %; Platelet Count 235 10^3/cmm (157-399); Red Blood Count 4.38 10^6/uL (3.85-5.65); Red Cell Distribution Width 15.3 % (12.1-15.1); White Blood Count 7.34 10^3/uL (3.29-11.43)
[2024-08-19 03:36] LABS: Anion Gap 12.7 (5-19); Blood Urea Nitrogen 22 mg/dL (8-23); Calcium 8.5 mg/dL (8.5-10.5); Carbon Dioxide 26 mmol/L (22-29); Chloride 104 mmol/L (98-107); Creatinine Clr Calc Pharmacy 69.9278; Glomerular Filtration Rate 55.8 mL/min (90-130); Glucose 125 mg/dL (65-115); Osmolality Calculated 293 mOsm/kg (285-295); Potassium 3.7 mmol/L (3.5-5.1); Sodium 139 mmol/L (136-145)
[2024-08-19] MEDS: FUROsemide 40 mg Tablet PO (05:02)
[2024-08-19] MEDS: allopurinol 300 mg Tablet PO (05:02)
[2024-08-19 06:17] LABS: Glucose Point of Care 123 mg/dL (70-110)
--- NOTE | 2024-08-19 06:59 | P.PN_ITS ---
Subjective 2 Subjective: Patient is doing well. No chest pain or shortness of breath. Continue angiogram did not demonstrate significant CAD. Vitals/I&O/Wt Last Vital Signs Temp 97.5 F L 08/19/24 04:00 Pulse 70 08/19/24 05:30 Resp 27 H 08/19/24 04:00 BP 108/71 08/19/24 04:00 Pulse Ox 95 08/19/24 04:45 O2 Del Method Room Air 08/19/24 04:00 FiO2 21 08/19/24 04:45 08/18/24 08/18/24 08/19/24 14:59 22:59 06:59 Intake Total 520 / 520 Balance 520 / 520 Weight last 48 hrs Weight 234 lb 11.2 oz Weight 234 lb 11.2 oz Weight 238 lb Physical Exam 2 Narrative: GENERAL: Patient is alert, awake and oriented x3. [] NECK: No jugular vein distension. [] HEENT: No cyanosis. No icterus. No pallor. [] HEART: Regular S1 and S2. Grade 3/6 systolic murmur LUNGS: Clear to auscultate bilaterally. [] CENTRAL NERVOUS SYSTEM: Grossly nonfocal. [] EXTREMITIES: Lower extremities with 1+ edema bilaterally. Data 08/19/24 02:49 08/19/24 02:49 A&P Assessment and plan (1) Non-ST elevation [place] (NSTEMI): (2) CHF (congestive heart failure): Qualifiers: Heart failure type: systolic Heart failure chronicity: chronic Qualified Code(s): I50.22 - Chronic systolic (congestive) heart failure (3) Cardiac resynchronization therapy defibrillator (VETERINARY RECEPTIONIST-D) in place: (4) Cardiomyopathy: Qualifiers: Cardiomyopathy type: dilated Qualified Code(s): I42.0 - Dilated cardiomyopathy (5) Mixed hyperlipidemia: (6) Hypertension: Qualifiers: Hypertension type: primary hypertension Qualified Code(s): I10 - Essential (primary) hypertension Plan Patient is stable with no more chest pain episodes. Continue current medications. Thank you for involving us with care of this patient. Please call with questions. Attestations 2 Medical Necessity Statement*: Care expected to cross 2 midnights. Coding Level of Care Code Acute Code for [facility] Diagnoses Non-ST elevation IL (NSTEMI) I21.4 Chronic systolic congestive heart failure I50.22 Heart failure type: systolic Heart failure chronicity: chronic Cardiac resynchronization therapy defibrillator (VETERINARY RECEPTIONIST-D) in place Z95.810 Dilated cardiomyopathy I42.0 Cardiomyopathy type: dilated Mixed hyperlipidemia E78.2 Primary hypertension I10 Hypertension type: primary hypertension
[2024-08-19] MEDS: potassium chloride ER 20 mEq Tablet PO (08:23)
[2024-08-19] MEDS: amiodarone 200 mg Tablet 400 MG PO (08:23)
[2024-08-19] MEDS: carvedilol 12.5 mg Tablet PO (08:23)
[2024-08-19] MEDS: pantoprazole DR 40 mg Tablet PO (08:23)
[2024-08-19] MEDS: clopidogrel 75 mg Tablet PO (08:23)
[2024-08-19] MEDS: enoxaparin 100 mg/mL Syringe SUBCUT (08:23)
[2024-08-19] MEDS: aspirin 81 mg EC Tablet PO (08:23)
--- NOTE | 2024-08-19 09:50 | PM.DCS ---
Discharge Providers Date of Admission: 08/17/24 16:29 Date of Discharge: August 19, 2024 Attending Provider at Admission: Khalida Gomez MD Attending Provider at Discharge: Khalida Gomez MD Primary Care Provider: ANDRES Pettit Diagnoses at Discharge Discharge Diagnosis (1) Non-ST elevation NC (NSTEMI): Status: Acute (2) CHF (congestive heart failure): Status: Acute Qualifiers: Heart failure type: systolic Heart failure chronicity: chronic Qualified Code(s): I50.22 - Chronic systolic (congestive) heart failure (3) Cardiac resynchronization therapy defibrillator (ASSOCIATE PROFESSOR OF GEOLOGY-D) in place: Status: Acute Permanent problem details: [place] Dr. [place], 07/11/2020 (4) Cardiomyopathy: Status: Acute Qualifiers: Cardiomyopathy type: dilated Qualified Code(s): I42.0 - Dilated cardiomyopathy (5) Mixed hyperlipidemia: Status: Acute (6) Hypertension: Status: Acute Qualifiers: Hypertension type: primary hypertension Qualified Code(s): I10 - Essential (primary) hypertension Reason for Visit Reason for Visit: Chest Pain Hospital Course Hospital Course 63-year-old male with history of nonischemic cardiomyopathy EF 15%, presented with chief complaint of chest pain, his troponins were not above 100, he was put on ACS protocol Dr. Andrew was consulted, patient went for coronary angiogram which was unremarkable, EKG showed paced rhythm, patient takes amiodarone along Eliquis for A-fib. Patient did not complain of chest pain during hospitalization. Patient has an AICD, battery needs to be replaced in 2024 Patient is being discharged with stable hemodynamics, creatinine seems to be around baseline. Patient may benefit from goal-directed medical therapy optimization for reduced ejection fraction heart failure. Will give him close follow-up with cardiology outpatient. His cardiomyopathy seems to be nonischemic at this point. Physical Exam Narrative: Pleasant cooperative GCS 15 Nonfocal neuroexam No active chest pain Euvolemic Pleasant cooperative Discharge Data Studies Completed and Pending Completed Studies During Hospitalization Category Date Time Status XR chest 1V portable [id number] Stat Exams 08/17/24 12:46 Completed CV. echo complete* [id number] Routine Ultrasound 08/17/24 17:20 Completed Pending at discharge Category Date Time Status MAINSTREAMING FACILITATOR request for service Routine Exams 08/18/24 14:52 Taken Radiology Impressions Chest X-Ray 08/17/24 12:46 IMPRESSION: 1. Increased moderate cardiomegaly. 2. No superimposed acute disease. 3. Additional details as above. Laboratory Results WBC 7.34 10^3/uL (3.29-11.43) 08/19/24 02:49 RBC 4.38 10^6/uL (3.85-5.65) 08/19/24 02:49 Hgb 12.80 g/dL (11.27-16.99) 08/19/24 02:49 Hct 39.8 % (37-53) 08/19/24 02:49 MCV 90.9 fl (82-101) 08/19/24 02:49 MCH 29.2 pg (27-33) 08/19/24 02:49 MCHC 32.2 g/dL (30-55) 08/19/24 02:49 RDW 15.3 % (12.1-15.1) H 08/19/24 02:49 Plt Count 235 10^3/cmm (157-399) 08/19/24 02:49 MPV 11.2 fL (7.4-10.4) H 08/19/24 02:49 Neut % (Auto) 58.2 % 08/19/24 02:49 Lymph % (Auto) 28.1 % 08/19/24 02:49 [place] % (Auto) 10.5 % 08/19/24 02:49 Eos % (Auto) 2.3 % 08/19/24 02:49 Baso % (Auto) 0.5 % 08/19/24 02:49 Neut # (Auto) 4.27 10^3/uL (1.8-7.7) 08/19/24 02:49 Lymph # (Auto) 2.1 10^3/uL (0.8-4.8) 08/19/24 02:49 [place] # (Auto) 0.8 10^3/uL (0.2-0.9) 08/19/24 02:49 Eos # (Auto) 0.2 10^3/uL (0.0-0.8) 08/19/24 02:49 Baso # (Auto) 0.0 10^3/uL (0.0-0.1) 08/19/24 02:49 Nucleated RBC % (auto) 0 % 08/19/24 02:49 Nucleated RBCs # 0.0 /100WBC 08/19/24 02:49 Sodium 139 mmol/L (136-145) 08/19/24 02:49 Potassium 3.7 mmol/L (3.5-5.1) 08/19/24 02:49 Chloride 104 mmol/L (98-107) 08/19/24 02:49 Carbon Dioxide 26 mmol/L (22-29) 08/19/24 02:49 Anion Gap 12.7 (5-19) 08/19/24 02:49 BUN 22 mg/dL (8-23) 08/19/24 02:49 Creatinine 1.3 mg/dL (0.7-1.2) H 08/19/24 02:49 GFR Calculation 55.8 mL/min (90-130) L 08/19/24 02:49 Glucose 125 mg/dL (65-115) H 08/19/24 02:49 POC Glucose 123 mg/dL (70-110) H 08/19/24 06:13 Calculated Osmolality 293 mOsm/kg (285-295) 08/19/24 02:49 Calcium 8.5 mg/dL (8.5-10.5) 08/19/24 02:49 Magnesium 1.8 mg/dL (1.7-2.3) 08/18/24 03:55 Total Bilirubin 0.9 mg/dL (0.15-1.2) 08/17/24 13:05 AST 33 U/L (0-40) 08/17/24 13:05 ALT 38 U/L (0-41) 08/17/24 13:05 Alkaline Phosphatase 122 U/L (40-130) 08/17/24 13:05 Troponin T Baseline 55 ng/L (0-15) H 08/17/24 13:05 Troponin T 120 Minute 105.9 ng/L (0-15) H 08/17/24 15:05 Delta Troponin T 50.9 ABS# (0-10) H* 08/17/24 15:05 Troponin T Hi Sens 6Hr 291.9 ng/L (0-15) H 08/17/24 19:08 Troponin T Hi Sens 6Hr Delta 236.9 ng/L (0-12) H* 08/17/24 19:08 Total Protein 6.2 g/dL (6.6-8.7) L 08/17/24 13:05 Albumin 4.0 g/dL (3.5-5.2) 08/17/24 13:05 Globulin 2.2 g/dL (1.3-4.6) 08/17/24 13:05 Vitals Last Vital Signs Temp 97.9 F 08/19/24 07:05 Pulse 70 08/19/24 07:55 Resp 16 08/19/24 07:55 BP 117/71 08/19/24 07:05 Pulse Ox 98 08/19/24 07:55 O2 Del Method Room Air 08/19/24 07:55 FiO2 21 08/19/24 04:45 Discharge Plan Discharge Patient Disposition: Home Condition: Stable Prescriptions: Continued (DME) lancets [BD Ultra Fine Lancets] 33 gauge misc See Rx Instructions .ROUTE .MEDSUPPLY Qty: 100 11RF Rx Instructions: check blood sugar twice daily and as needed Eliquis 5 mg tablet 5 mg PO BID Qty: 180 1RF albuterol sulfate 2.5 mg /3 mL (0.083 %) solution for nebulization 2.5 mg inhalation QID PRN (Reason: shortness of breath or wheezing) Qty: 180 5RF albuterol sulfate 90 mcg/actuation HFA aerosol inhaler 2 inh INHALATION Q6H PRN (Reason: Shortness Of Breath) Qty: 8.5 2RF (DME) blood-glucose meter Misc See Rx Instructions .MEDSUPPLY Qty: 1 0RF Rx Instructions: Use as directed for checking blood sugar twice daily (DME) Blood Glucose Test Strip See Rx Instructions .MEDSUPPLY Qty: 200 12RF Rx Instructions: Use as directed with glucometer to check blood sugar twice daily (DME) lancets Misc See Rx Instructions .MEDSUPPLY Qty: 200 12RF Rx Instructions: Use as directed to prick skin for blood sugar checks twice daily alcohol swabs Pads, Medicated 1 pad topical DIRECTED Qty: 200 12RF Rx Instructions: Use as directed to clean skin prior to finger stick or medication injection (DME) nebulizer machine with tubing and mask See Rx Instructions .Route .MEDSUPPLY Qty: 1 0RF Rx Instructions: As directed (DME) Blood Glucose Test Strip See Rx Instructions .ROUTE .MEDSUPPLY Qty: 100 11RF Rx Instructions: Check blood sugar 2 x daily and prn amiodarone 400 mg tablet 400 mg PO DAILY Qty: 90 1RF (DME) blood-glucose meter [Blood Glucose Monitoring] Kit See Rx Instructions .ROUTE .MEDSUPPLY Qty: 1 0RF Rx Instructions: As directed; to test 2 x day and prn (DME) Standard Cpap Device See Rx Instructions .Route Qty: 1 0RF Rx Instructions: As directed WITH SUPPLIES pantoprazole [Protonix] 40 mg tablet,delayed release (DR/EC) 40 mg PO BID Qty: 60 2RF sertraline 100 mg tablet 100 mg PO QAM Qty: 30 2RF Lasix 40 mg tablet 40 mg PO QAM Qty: 30 5RF insulin glargine [Lantus Solostar U-100 Insulin] 100 unit/mL (3 mL) insulin pen 30 unit SUBCUT BEDTIME Qty: 15 2RF carvedilol 12.5 mg tablet 12.5 mg PO BID Qty: 60 0RF potassium citrate 10 mEq (1,080 mg) tablet extended release 20 meq PO BID allopurinol 300 mg tablet 300 mg PO QAM levocetirizine 5 mg tablet 5 mg PO DAILY fluticasone propionate [Flonase Allergy Relief] 50 mcg/actuation spray,suspension 2 spray intranasal DAILY PRN (Reason: Allergy Symptoms) Rx Instructions: administer into each nostril clopidogrel 75 mg Tablet 75 mg PO DAILY Qty: 30 2RF dapagliflozin propanediol [Farxiga] 10 mg tablet 10 mg PO DAILY rosuvastatin 40 mg tablet 40 mg PO BEDTIME magnesium L-lactate 84 mg Tablet Extended Release 84 mg PO DAILY Held spironolactone 25 mg tablet 25 mg PO DAILY Qty: 90 1RF Hold Instructions: Resume on 08/21/24. Discharge Orders: Discharge Order (Routine); Ordered 08/19/24 Ordered By: Khalida Gomez Referrals: Lucrecia Blandon FNP [Primary Care Provider] - Gregoria Cottrell FNP [Nurse Practitioner] - 2 weeks Discharge Diet: Diabetic Discharge Activity: Increase activity as tolerated Patient Instructions: Opioid Safety Discharge Attestations Time Spent in Discharge Care*: greater than 30 min Status at Discharge: Cognitive status at discharge: cognitively intact, Behavioral status at discharge: cooperative, Quality Metrics Clinical Quality Measures [ No reported AMI, CVA or VTE this stay] Coding Level of Care Code Acute Code for Chg Fwd Diagnoses Non-ST elevation NC (NSTEMI) I21.4 Chronic systolic congestive heart failure I50.22 Heart failure type: systolic Heart failure chronicity: chronic Cardiac resynchronization therapy defibrillator (ASSOCIATE PROFESSOR OF GEOLOGY-D) in place Z95.810 Dilated cardiomyopathy I42.0 Cardiomyopathy type: dilated Mixed hyperlipidemia E78.2 Primary hypertension I10 Hypertension type: primary hypertension
== END 2024-08-19 11:16 | disposition home or self-care (01) | DRG 281 ==
LOC: ER 16:05 → CSU 16:30
PROVIDERS: Internal Medicine; Admitting Provider Internal Medicine; Emergency Provider Emergency Medicine; PCP Nurse Practitioner Family; Visit Provider Internal Medicine
PROC: B2111ZZ Fluoroscopy of Multiple Coronary Arteries using Low Osmolar Contrast (ICD-10-PCS; principal; 2024-08-18 16:30)
DX: I21.4 Non-ST elevation (NSTEMI) myocardial infarction (principal); I42.8 Other cardiomyopathies; I50.22 Chronic systolic (congestive) heart failure; I11.0 Hypertensive heart disease with heart failure; E78.2 Mixed hyperlipidemia; E11.9 Type 2 diabetes mellitus without complications; I49.3 Ventricular premature depolarization; J44.9 Chronic obstructive pulmonary disease, unspecified; F32.9 Major depressive disorder, single episode, unspecified; K21.9 Gastro-esophageal reflux disease without esophagitis; Z95.810 Presence of automatic (implantable) cardiac defibrillator; Z79.02 Long term (current) use of antithrombotics/antiplatelets; Z79.84 Long term (current) use of oral hypoglycemic drugs; Z79.01 Long term (current) use of anticoagulants; Z79.4 Long term (current) use of insulin; Z86.73 Personal history of transient ischemic attack (TIA), and cerebral infarction without residual deficits; I25.2 Old myocardial infarction
CPT/HCPCS: 36415; 36416; 71045; 80048; 80053; 82962; 83735; 84484; 85025; 93005; 93306; 93454; 94660; 96372; 96374; 96375; 96376; 99152; 99153; 99285; C1769; C1887; C1894; J1200; J1644; J1650; J1815; J2250; J3010; J3490; J7030; Q9967

== ENCOUNTER 2024-08-27 06:18 | Emergency (ER) | payer MEDICAID, SELFPAY ==
[2024-06-22 09:22] VITALS: BP 110/74; BMI 36.6
[2024-08-27 06:20] VITALS: BP 119/78; PULSE 72; RESP 20; TEMP 36.6; O2SAT 98; BMI 39.1
--- NOTE | 2024-08-27 06:25 | ED_ITS ---
HPI - Epistaxis 2 General: Chief complaint: Epistaxis Stated complaint: Nose Bleed Time Seen by Provider: 08/27/24 06:22 Source: patient and EMS Mode of arrival: EMS Limitations: no limitations History of Present Illness: 63-year-old male who states he started h aving a nosebleed out of his right nare at 5 AM and was unable to get it to stop. History of stroke in the past is on Eliquis. He denies any lightheadedness denies any vomiting or diarrhea denies any injuries. Associated symptoms: Deny fever(s), headache(s) or vomiting Related Data Home Medications Medication Instructions Recorded Confirmed fluticasone propionate 50 2 spray intranasal DAILY PRN 08/17/23 08/24/24 mcg/actuation nasal Allergy Symptoms spray,suspension (Flonase Allergy Relief) dapagliflozin propanediol 10 mg 10 mg PO DAILY 02/27/24 08/24/24 tablet (Farxiga) magnesium L-lactate 84 mg 84 mg PO DAILY 03/08/24 08/24/24 tablet,extended release allopurinol 300 mg tablet 300 mg PO QAM 08/17/24 08/24/24 levocetirizine 5 mg tablet 5 mg PO DAILY 08/17/24 08/24/24 potassium citrate 10 mEq (1,080 20 meq PO BID 08/17/24 08/24/24 mg) tablet,extended release Previous Rx's Medication Instructions Recorded blood-glucose meter (Blood Glucose #1 ea 07/06/20 Monitoring kit) nebulizer machine with tubing and #1 ea 09/09/22 mask lancets 33 gauge (BD Ultra Fine #100 ea 12/05/22 Lancets) clopidogrel 75 mg tablet 75 mg PO DAILY #30 tabs 11/20/23 CPAP (Standard Cpap) #1 ea 04/09/24 apixaban 5 mg tablet (Eliquis) 5 mg PO BID #180 tabs 04/14/24 spironolactone 25 mg tablet 25 mg PO DAILY #90 tabs 04/14/24 amiodarone 400 mg tablet 400 mg PO DAILY #90 tabs 05/10/24 blood sugar diagnostic (Blood #100 ea 05/10/24 Glucose Test strips) carvedilol 12.5 mg tablet 12.5 mg PO BID #60 tabs 06/01/24 albuterol sulfate 2.5 mg/3 mL 2.5 mg (3 mL) inhalation QID PRN 06/03/24 (0.083 %) solution for nebulization shortness of breath or wheezing #180 mL albuterol sulfate 90 mcg/actuation 2 inh inhalation Q6H PRN Shortness 06/03/24 aerosol inhaler Of Breath #8.5 grams furosemide 40 mg tablet (Lasix) 40 mg PO QAM #30 tabs 06/03/24 insulin glargine 100 unit/mL (3 30 unit (0.3 mL) SUBCUT BEDTIME 06/28/24 mL) subcutaneous pen (Lantus #15 mL Solostar U-100 Insulin) alcohol swabs 1 pad topical DIRECTED #200 ea 08/05/24 blood sugar diagnostic (Blood #200 ea 08/05/24 Glucose Test strips) blood-glucose meter #1 ea 08/05/24 lancets #200 ea 08/05/24 rosuvastatin 40 mg tablet See Rx Instructions .Route 08/20/24 .COMPLEX #30 ea pantoprazole 40 mg tablet,delayed See Rx Instructions .Route 08/23/24 release .COMPLEX #60 tabs sertraline 100 mg tablet 100 mg PO QAM #30 tabs 08/23/24 cephalexin 500 mg capsule 500 mg PO BID 4 days #8 caps 08/27/24 Allergies Allergy/AdvReac Type Severity Reaction Status Date / Time isosorbide Allergy unknown Verified 08/24/24 10:54 Penicillins AdvReac rash Verified 08/24/24 10:54 Review of Systems 2 Const: Denies: fever(s), chills, body aches or change in appetite ENMT: Reports: epistaxis; Denies: throat pain or dental pain Card: Denies: chest pain Resp: Denies: dyspnea GI: Denies: abdominal pain, nausea, vomiting or diarrhea Musc: Denies: neck pain or back pain Skin/Breast: Denies: rash Neuro: Denies: headache(s) PFSH ED 2 PFSH: Medical History Coronary artery disease Type 2 diabetes mellitus Cardiac resynchronization therapy defibrillator (STEAM SETTER-D) in place [place] [address] [place], 07/11/2020 Cardiomyopathy Mixed hyperlipidemia Hypertension CVA (cerebral vascular accident) PVCs (premature ventricular contractions) Hypomagnesemia Infarction of spleen Nausea & vomiting Gastroparesis COPD (chronic obstructive pulmonary disease) Major depressive disorder, recurrent episode, mild degree Major depressive disorder in partial remission Allergic rhinitis Bipolar II disorder Diabetes Non-ST elevation AL (NSTEMI) Uses bilevel positive airway pressure (BPAP) ventilation at home 12/8cm Dysarthria Unstable angina Nonischemic congestive cardiomyopathy Chronic low back pain Elevated blood uric acid level History of sleep study 2017 at [facility]: Optimal pressure settings with BiPAP found to be 12/8 cm COVID-19 Wound infection following procedure infection with defibrillator lead revision, removed , scarring left subclavian area from this GERD (gastroesophageal reflux disease) ALBERTO (obstructive sleep apnea) C. difficile diarrhea Cataracts, bilateral CHF (congestive heart failure) Urolithiasis Multi stone former, calcium oxalate mono and dihydrate. Also calcium phosphate. Multiple interventions including endoscopy with laser lithotripsy and ESWL. Metabolic treatment with potassium citrate Hemorrhoids Psychiatric care Right ureteral calculus Osteoarthritis of hands, bilateral Pacemaker Surgical History S/P epidural steroid injection Status post hemorrhoidectomy Hx of umbilical hernia repair Hx of lithotripsy History of urethral stent H/O esophagogastroduodenoscopy (02/27/21) gastritis, duodenitis History of colonoscopy (02/27/21) descending colon polyp, hemorrhoids History of carpal tunnel release of both wrists History of permanent cardiac pacemaker placement Hx of cataract surgery Hx of shoulder surgery Family History Grandfather CAD (coronary artery disease) Brother Cancer colon cancer Diabetes Mother Diabetes Father No problems noted. Other Hypertension Rheumatoid arthritis Social History Smoking and tobacco/nicotine status: never used tobacco/nicotine Second hand smoke exposure: No Alcohol intake: former Year of sobriety/quit date alcohol: 1997 Substance/Drug Use: former Date of last use: 1997 Caregiver/support person: Yes Lives independently: Yes Household members: spouse Marital status: service: No Current occupational status: disabled Current gender identity: Male Special fernando needs: No Agree to transfusion: Yes Physical Exam 2 Const: COMMON NORMALS: no acute distress, patient oriented x3 and healthy appearing HENMT: COMMON NORMALS: normocephalic and atraumatic HEAD & SCALP: n ormocephalic and atraumatic OTHER: bleeding from right nare Eye: COMMON NORMALS: conjunctivae normal CONJUNCTIVA: Yes conjunctivae normal Neck/C-Spine: COMMON NORMALS: full ROM and supple Chest: COMMONS NORMALS: normal inspection of the chest Resp: COMMON NORMALS: normal respiratory effort Extremity: COMMON NORMALS: normal to inspection and full ROM Neuro: COMMON NORMALS: patient oriented x3, moves all extremities and no focal motor deficits Psych: COMMON NORMALS: mental status grossly normal, Normal thought process present and cooperative THOUGHT PROCESS: Normal thought process present Skin: COMMON NORMALS: no rashes or lesions noted and no wounds GENERAL SKIN EXAM: no rashes or lesions noted Procedures Epistaxis Control Time Out Performed: Yes Nostril: right Direct Inspection: unable to visualize Clots Removed by: blowing nose Cautery Used: none Device Inserted: hemostatic balloon Patient Tolerated Procedure: well Course 2 Vital Signs: Vital signs: Vital Signs Temperature 98 F 08/27/24 06:20 Pulse Rate 70 08/27/24 06:37 Respiratory Rate 20 H 08/27/24 06:20 Blood Pressure 119/78 08/27/24 06:37 Pulse Oximetry 97 08/27/24 06:37 Oxygen Delivery Me thod Room Air 08/27/24 06:37 MDM - Epistaxis Medical Decision Making Patient presents with a nosebleed Rhino Rocket was placed his nosebleed is stopped he has been well-appearing here he stable for discharge we will place him on Keflex he is follow-up with ENT if he is unable to get an ENT in 2 to 3 days he is to return here to have the Rhino Rocket removed he understands agrees to plan Medical Records I reviewed the patient's medical records. Lab Data I reviewed the patient's lab results. 08/27/24 07:08 Laboratory Results WBC 9.91 10^3/uL (3.29-11.43) 08/27/24 07:08 Corrected WBC Cancelled 08/27/24 06:34 RBC 4.12 10^6/uL (3.85-5.65) 08/27/24 07:08 Hgb 11.90 g/dL (11.27-16.99) 08/27/24 07:08 Hct 36.5 % (37-53) L 08/27/24 07:08 MCV 88.6 fl (82-101) 08/27/24 07:08 MCH 28.9 pg (27-33) 08/27/24 07:08 MCHC 32.6 g/dL (30-55) 08/27/24 07:08 RDW 15.3 % (12.1-15.1) H 08/27/24 07:08 Plt Count 236 10^3/cmm (157-399) 08/27/24 07:08 MPV 11.7 fL (7.4-10.4) H 08/27/24 07:08 Gran % Cancelled 08/27/24 06:34 Neut % (Auto) 73.6 % 08/27/24 07:08 Lymph % (Auto) 16.3 % 08/27/24 07:08 [place] % (Auto) 8.0 % 08/27/24 07:08 Eos % (Auto) 1.3 % 08/27/24 07:08 Baso % (Auto) 0.5 % 08/27/24 07:08 Neut # (Auto) 7.29 10^3/uL (1.8-7.7) 08/27/24 07:08 Lymph # (Auto) 1.6 10^3/uL (0.8-4.8) 08/27/24 07:08 [place] # (Auto) 0.8 10^3/uL (0.2-0.9) 08/27/24 07:08 Eos # (Auto) 0.1 10^3/uL (0.0-0.8) 08/27/24 07:08 Baso # (Auto) 0.1 10^3/uL (0.0-0.1) 08/27/24 07:08 Absolute Gran (auto) Cancelled 08/27/24 06:34 Nucleated RBC % (auto) 0 % 08/27/24 07:08 Nucleated RBCs # 0.0 /100WBC 08/27/24 07:08 PT 18.20 SECONDS (12.1-14.9) H 08/27/24 06:34 INR 1.46 (0.8-1.2) H 08/27/24 06:34 No radiology studies performed this visit Discharge Plan Discharge Patient Disposition: Home Clinical Impression: Epistaxis Condition: Stable Prescriptions: New cephalexin 500 mg capsule 500 mg PO BID 4 Days Qty: 8 0RF No Action (DME) lancets [BD Ultra Fine Lancets] 33 gauge misc See Rx Instructions .ROUTE .MEDSUPPLY Qty: 100 11RF Rx Instructions: check blood sugar twice daily and as needed spironolactone 25 mg tablet 25 mg PO DAILY Qty: 90 1RF Hold Instructions: Resume on 08/21/24. Eliquis 5 mg tablet 5 mg PO BID Qty: 180 1RF albuterol sulfate 2.5 mg /3 mL (0.083 %) solution for nebulization 2.5 mg inhalation QID PRN (Reason: shortness of breath or wheezing) Qty: 180 5RF albuterol sulfate 90 mcg/actuation HFA aerosol inhaler 2 inh INHALATION Q6H PRN (Reason: Shortness Of Breath) Qty: 8.5 2RF (DME) blood-glucose meter Misc See Rx Instructions .MEDSUPPLY Qty: 1 0RF Rx Instructions: Use as directed for checking blood sugar twice daily (DME) Blood Glucose Test Strip See Rx Instructions .MEDSUPPLY Qty: 200 12RF Rx Instructions: Use as directed with glucometer to check blood sugar twice daily (DME) lancets Misc See Rx Instructions .MEDSUPPLY Qty: 200 12RF Rx Instructions: Use as directed to prick skin for blood sugar checks twice daily alcohol swabs Pads, Medicated 1 pad topical DIRECTED Qty: 200 12RF Rx Instructions: Use as directed to clean skin prior to finger stick or medication injection (DME) nebulizer machine with tubing and mask See Rx Instructions .Route .MEDSUPPLY Qty: 1 0RF Rx Instructions: As directed (DME) Blood Glucose Test Strip See Rx Instructions .ROUTE .MEDSUPPLY Qty: 100 11RF Rx Instructions: Check blood sugar 2 x daily and prn amiodarone 400 mg tablet 400 mg PO DAILY Qty: 90 1RF (DME) blood-glucose meter [Blood Glucose Monitoring] Kit See Rx Instructions .ROUTE .MEDSUPPLY Qty: 1 0RF Rx Instructions: As directed; to test 2 x day and prn (DME) Standard Cpap Device See Rx Instructions .Route Qty: 1 0RF Rx Instructions: As directed WITH SUPPLIES Lasix 40 mg tablet 40 mg PO QAM Qty: 30 5RF insulin glargine [Lantus Solostar U-100 Insulin] 100 unit/mL (3 mL) insulin pen 30 unit SUBCUT BEDTIME Qty: 15 2RF rosuvastatin 40 mg tablet See Rx Instructions .ROUTE .COMPLEX Qty: 30 0RF Dose Instruction: TAKE 1 TABLET BY MOUTH AT BEDTIME Rx Instructions: TAKE 1 TABLET BY MOUTH AT BEDTIME sertraline 100 mg tablet 100 mg PO QAM Qty: 30 2RF pantoprazole 40 mg tablet,delayed release (DR/EC) See Rx Instructions .ROUTE .COMPLEX Qty: 60 0RF Dose Instruction: Take 1 tablet by mouth twice daily Rx Instructions: Take 1 tablet by mouth twice daily carvedilol 12.5 mg tablet 12.5 mg PO BID Qty: 60 0RF potassium citrate 10 mEq (1,080 mg) tablet extended release 20 meq PO BID allopurinol 300 mg tablet 300 mg PO QAM levocetirizine 5 mg tablet 5 mg PO DAILY fluticasone propionate [Flonase Allergy Relief] 50 mcg/actuation spray,suspension 2 spray intranasal DAILY PRN (Reason: Allergy Symptoms) Rx Instructions: administer into each nostril clopidogrel 75 mg Tablet 75 mg PO DAILY Qty: 30 2RF dapagliflozin propanediol [Farxiga] 10 mg tablet 10 mg PO DAILY magnesium L-lactate 84 mg Tablet Extended Release 84 mg PO DAILY Discharge Orders: Discharge ED (Routine); Ordered 08/27/24 Ordered By: Gurvinder Felton Referrals: Chas Campos MD [Physician] - 4-7 days Lucrecia Blandon FNP [Primary Care Provider] - Discharge Diet: Advance as tolerated Discharge Activity: Resume usual activity Patient Instructions: Epistaxis - Adult Activity Restrictions/Additional Instructions: nasal packing removed in 48-72hrs Coding Level of Care Code 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
[2024-08-27 06:37] VITALS: BP 119/78; PULSE 70; O2SAT 97
[2024-08-27 07:02] LABS: INR 1.46 (0.8-1.2)
[2024-08-27 07:17] LABS: Basophils # 0.1 10^3/uL (0.0-0.1); Basophils % 0.5 %; Eosinophils # 0.1 10^3/uL (0.0-0.8); Eosinophils % 1.3 %; Hematocrit 36.5 % (37-53); Lymphocytes # 1.6 10^3/uL (0.8-4.8); Lymphocytes % 16.3 %; Mean Corpuscular HGB Conc 32.6 g/dL (30-55); Mean Corpuscular Hemoglobin 28.9 pg (27-33); Mean Corpuscular Volume 88.6 fl (82-101); Mean Platelet Volume 11.7 fL (7.4-10.4); Monocytes # 0.8 10^3/uL (0.2-0.9); Neutrophils # 7.29 10^3/uL (1.8-7.7); Neutrophils % 73.6 %; Nucleated Red Blood Cells % 0 %; Platelet Count 236 10^3/cmm (157-399); Red Blood Count 4.12 10^6/uL (3.85-5.65); Red Cell Distribution Width 15.3 % (12.1-15.1); White Blood Count 9.91 10^3/uL (3.29-11.43)
--- NOTE | 2024-08-27 07:38 | DCPLANNER ---
faxed ent gordon referral packet
[2024-08-27 08:08] VITALS: BP 119/77; PULSE 70; O2SAT 98
== END 2024-08-27 08:17 | disposition home or self-care (01) ==
PROVIDERS: Emergency Provider Emergency Medicine; PCP Nurse Practitioner Family
DX: R04.0 Epistaxis (principal); Z79.01 Long term (current) use of anticoagulants; Z79.02 Long term (current) use of antithrombotics/antiplatelets; Z79.4 Long term (current) use of insulin; Z95.0 Presence of cardiac pacemaker; I25.10 Atherosclerotic heart disease of native coronary artery without angina pectoris; E11.9 Type 2 diabetes mellitus without complications; E78.2 Mixed hyperlipidemia; J44.9 Chronic obstructive pulmonary disease, unspecified; I25.2 Old myocardial infarction; I11.0 Hypertensive heart disease with heart failure; I50.9 Heart failure, unspecified
CPT/HCPCS: 30901; 85025; 85610; 99283

== ENCOUNTER → 2024-09-03 10:49 | Outpatient (BNVA) | payer MEDICAID, SELFPAY ==
[2024-06-22 09:22] VITALS: BP 110/74; BMI 36.6
== END ==
PROVIDERS: PCP Nurse Practitioner Family; Visit Provider Nurse Practitioner Family
DX: I42.0 Dilated cardiomyopathy (principal); R06.02 Shortness of breath
CPT/HCPCS: 36415; 80048; 83880

== ENCOUNTER 2024-09-14 18:32 | Emergency (ER) | payer MEDICAID, SELFPAY ==
[2024-06-22 09:22] VITALS: BP 110/74; BMI 36.6
[2024-09-14 18:35] VITALS: BP 105/66; PULSE 70; TEMP 36.1; O2SAT 100; BMI 39.7
--- NOTE | 2024-09-14 18:55 | ED_ITS ---
HPI - Abdominal Pain 2 General: Chief Complaint: Abdominal Pain Stated Complaint: abd pain Time Seen by Provider: 09/14/24 18:46 History of Present Illness: Patient presents to the ER complaining of right upper quadrant and right lower quadrant pain for the past few days. Patient states is constant and nothing makes better nothing makes it worse. Patient does have some nausea. Patient has a gallbladder and appendix. Related Data Home Medications Medication Instructions Recorded Confirmed fluticasone propionate 50 2 spray intranasal DAILY PRN 08/17/23 09/03/24 mcg/actuation nasal Allergy Symptoms spray,suspension (Flonase Allergy Relief) magnesium L-lactate 84 mg 84 mg PO DAILY 03/08/24 09/03/24 tablet,extended release allopurinol 300 mg tablet 300 mg PO QAM 08/17/24 09/03/24 levocetirizine 5 mg tablet 5 mg PO DAILY 08/17/24 09/03/24 potassium citrate 10 mEq (1,080 20 meq PO BID 08/17/24 09/03/24 mg) tablet,extended release Previous Rx's Medication Instructions Recorded blood-glucose meter (Blood Glucose #1 ea 07/06/20 Monitoring kit) nebulizer machine with tubing and #1 ea 09/09/22 mask lancets 33 gauge (BD Ultra Fine #100 ea 12/05/22 Lancets) clopidogrel 75 mg tablet 75 mg PO DAILY #30 tabs 11/20/23 CPAP (Standard Cpap) #1 ea 04/09/24 spironolactone 25 mg tablet 25 mg PO DAILY #90 tabs 04/14/24 amiodarone 400 mg tablet 400 mg PO DAILY #90 tabs 05/10/24 blood sugar diagnostic (Blood #100 ea 05/10/24 Glucose Test strips) carvedilol 12.5 mg tablet 12.5 mg PO BID #60 tabs 06/01/24 albuterol sulfate 2.5 mg/3 mL 2.5 mg (3 mL) inhalation QID PRN 06/03/24 (0.083 %) solution for nebulization shortness of breath or wheezing #180 mL albuterol sulfate 90 mcg/actuation 2 inh inhalation Q6H PRN Shortness 06/03/24 aerosol inhaler Of Breath #8.5 grams furosemide 40 mg tablet (Lasix) 40 mg PO QAM #30 tabs 06/03/24 insulin glargine 100 unit/mL (3 30 unit (0.3 mL) SUBCUT BEDTIME 06/28/24 mL) subcutaneous pen (Lantus #15 mL Solostar U-100 Insulin) alcohol swabs 1 pad topical DIRECTED #200 ea 08/05/24 blood sugar diagnostic (Blood #200 ea 08/05/24 Glucose Test strips) blood-glucose meter #1 ea 08/05/24 lancets #200 ea 08/05/24 rosuvastatin 40 mg tablet See Rx Instructions .Route 08/20/24 .COMPLEX #30 ea pantoprazole 40 mg tablet,delayed See Rx Instructions .Route 08/23/24 release .COMPLEX #60 tabs sertraline 100 mg tablet 100 mg PO QAM #30 tabs 08/23/24 Farxiga 10 mg tablet See Rx Instructions .Route 08/30/24 (dapagliflozin propanediol) .COMPLEX #90 tabs apixaban 2.5 mg tablet 2.5 mg PO BID 90 days #180 tabs 08/31/24 ropinirole 0.25 mg tablet 0.25 mg PO .qhs #30 tabs 08/31/24 Allergies Allergy/AdvReac Type Severity Reaction Status Date / Time isosorbide Allergy unknown Verified 09/14/24 18:42 Penicillins AdvReac rash Verified 09/14/24 18:42 Review of Systems 2 General: Reports: 10 or more systems reviewed and unremarkable except in HPI and below PFSH ED 2 PFSH: Medical History Cardiomyopathy Coronary artery disease Type 2 diabetes mellitus Cardiac resynchronization therapy defibrillator ([employer]D) in place [employer] [address] [place], 07/11/2020 Mixed hyperlipidemia Hypertension CVA (cerebral vascular accident) PVCs (premature ventricular contractions) Hypomagnesemia Infarction of spleen Nausea & vomiting Gastroparesis COPD (chronic obstructive pulmonary disease) Major depressive disorder, recurrent episode, mild degree Major depressive disorder in partial remission Allergic rhinitis Bipolar II disorder Diabetes Non-ST elevation LA (NSTEMI) Uses bilevel positive airway pressure (BPAP) ventilation at home 12/8cm Dysarthria Unstable angina Nonischemic congestive cardiomyopathy Chronic low back pain Elevated blood uric acid level History of sleep study 2017 at [facility]: Optimal pressure settings with BiPAP found to be 12/8 cm COVID-19 Wound infection following procedure infection with defibrillator lead revision, removed , scarring left subclavian area from this GERD (gastroesophageal reflux disease) ALBERTO (obstructive sleep apnea) C. difficile diarrhea Cataracts, bilateral CHF (congestive heart failure) Urolithiasis Multi stone former, calcium oxalate mono and dihydrate. Also calcium phosphate. Multiple interventions including endoscopy with laser lithotripsy and ESWL. Metabolic treatment with potassium citrate Hemorrhoids Psychiatric care Right ureteral calculus Osteoarthritis of hands, bilateral Pacemaker Surgical History S/P epidural steroid injection Status post hemorrhoidectomy Hx of umbilical hernia repair Hx of lithotripsy History of urethral stent H/O esophagogastroduodenoscopy (02/27/21) gastritis, duodenitis History of colonoscopy (02/27/21) descending colon polyp, hemorrhoids History of carpal tunnel release of both wrists History of permanent cardiac pacemaker placement Hx of cataract surgery Hx of shoulder surgery Family History Grandfather CAD (coronary artery disease) Brother Cancer colon cancer Diabetes Mother Diabetes Father No problems noted. Other Hypertension Rheumatoid arthritis Social History Smoking and tobacco/nicotine status: never used tobacco/nicotine Second hand smoke exposure: No Alcohol intake: former Year of sobriety/quit date alcohol: 1997 Substance/Drug Use: former Date of last use: 1997 Caregiver/support person: Yes Lives independently: Yes Household members: spouse Marital status: service: No Current occupational status: disabled Current gender identity: Male Special fernando needs: No Agree to transfusion: Yes Physical Exam 2 HENMT: COMMON NORMALS: normocephalic, atraumatic, hearing grossly normal bilaterally, external ears normal, Normal external nose present and moist oral mucous membranes HEAD & SCALP: normocephalic and atraumatic NOSE: Normal external nose present EXTERNAL EAR: Yes external ears normal Neck/C-Spine: COMMON NORMALS: full ROM, no lymphadenopathy, supple, no meningeal signs, no JVD and Thyroid normal THYROID: Thyroid normal Chest: COMMONS NORMALS: normal inspection of the chest and normal palpation of entire chest wall Resp: COMMON NORMALS: normal respiratory effort, No retractions, No use of accessory muscles and clear to auscultation bilaterally AUSCULTATION: clear to auscultation bilaterally Cardio: COMMON NORMALS: no JVD, regular rate, regular rhythm, S1 normal heart sound present, S2 normal heart sound present, No gallops present (Cardio), No clicks present (Cardio), No murmurs present (Cardio) and No rub (Cardio) R ATE: regular rate RHYTHM: regular rhythm HEART SOUNDS: S1 normal heart sound present and S2 normal heart sound present GI: COMMON NORMALS: Normal to inspection, nondistended, normoactive bowel sounds present, Soft to palpation, No hepatosplenomegaly present and no masses; negative for non-tender (Tender to palpate right upper and right lower quadrants) PALPATION: Yes Soft to palpation and Yes No hepatosplenomegaly present Neuro: MENINGEAL SIGNS: Yes no meningeal signs Course 2 Vital Signs: Vital signs: Vital Signs Temperature 97.0 F L 09/14/24 18:35 Pulse Rate 71 09/14/24 19:19 Blood Pressure 120/84 09/14/24 19:19 Pulse Oximetry 99 09/14/24 19:19 Oxygen Delivery Me thod Room Air 09/14/24 18:35 MDM - Abdominal Pain Medical Decision Making Lab work was reviewed CBC CMP lipase essentially unremarkable, creatinine mildly elevated 1.5, alk phos 237, lipase 70, CT scan of the abdomen pelvis showed a 5 x 5 cm splenic cyst decreased in size compared to prior study, renal scarring, 7 mm nonobstructing left renal pole calculus, minimal ascites, trace pleural effusion minimal bibasilar atelectasis, these results was discussed with the patient. Patient knew about the kidney stone. Patient will be discharged home. Medical Records I reviewed the patient's medical records. Lab Data I reviewed the patient's lab results. 09/14/24 19:00 09/14/24 19:00 Labs/Radiology: Radiology Impressions Abdomen/Pelvis CT 09/14/24 19:48 IMPRESSION: 1. Approximately 5 x 5 cm somewhat thick-walled splenic low-attenuation cystic lesion or collection with central fluid attenuation decreased in size compared to prior studies. Differential diagnosis includes chronic splenic infarct, complicated cyst or abscess versus necrotic mass. 2. Approximately 1.5 cm additional incidental small inferior splenic nonspecific low-attenuation lesion. 3. Chronic bilateral renal scarring left greater than right, possibly secondary to old renal infarcts. 4. Approximately 7 mm nonobstructing left renal lower pole calculus. 5. Mildly thickened urinary bladder which may be secondary to incomplete distention versus cystitis/UTI. 6. Minimal ascites. 7. Trace posterior pleural effusions and minimal bibasilar atelectasis. Laboratory Results WBC 9.83 10^3/uL (3.29-11.43) 09/14/24 19:00 RBC 4.34 10^6/uL (3.85-5.65) 09/14/24 19:00 Hgb 12.30 g/dL (11.27-16.99) 09/14/24 19:00 Hct 38.9 % (37-53) 09/14/24 19:00 MCV 89.6 fl (82-101) 09/14/24 19:00 MCH 28.3 pg (27-33) 09/14/24 19:00 MCHC 31.6 g/dL (30-55) 09/14/24 19:00 RDW 15.7 % (12.1-15.1) H 09/14/24 19:00 Plt Count 332 10^3/cmm (157-399) 09/14/24 19:00 MPV 11.1 fL (7.4-10.4) H 09/14/24 19:00 Neut % (Auto) 69.6 % 09/14/24 19:00 Lymph % (Auto) 21.1 % 09/14/24 19:00 [place] % (Auto) 6.7 % 09/14/24 19:00 Eos % (Auto) 1.6 % 09/14/24 19:00 Baso % (Auto) 0.6 % 09/14/24 19:00 Neut # (Auto) 6.84 10^3/uL (1.8-7.7) 09/14/24 19:00 Lymph # (Auto) 2.1 10^3/uL (0.8-4.8) 09/14/24 19:00 [place] # (Auto) 0.7 10^3/uL (0.2-0.9) 09/14/24 19:00 Eos # (Auto) 0.2 10^3/uL (0.0-0.8) 09/14/24 19:00 Baso # (Auto) 0.1 10^3/uL (0.0-0.1) 09/14/24 19:00 Nucleated RBC % (auto) 0 % 09/14/24 19:00 Nucleated RBCs # 0.0 /100WBC 09/14/24 19:00 Sodium 138 mmol/L (136-145) 09/14/24 19:00 Potassium 3.3 mmol/L (3.5-5.1) L 09/14/24 19:00 Chloride 101 mmol/L (98-107) 09/14/24 19:00 Carbon Dioxide 26 mmol/L (22-29) 09/14/24 19:00 Anion Gap 14.3 (5-19) 09/14/24 19:00 BUN 22 mg/dL (8-23) 09/14/24 19:00 Creatinine 1.5 mg/dL (0.7-1.2) H 09/14/24 19:00 GFR Calculation 47.1 mL/min (90-130) L 09/14/24 19:00 Glucose 212 mg/dL (65-115) H 09/14/24 19:00 Calculated Osmolality 296 mOsm/kg (285-295) H 09/14/24 19:00 Calcium 8.6 mg/dL (8.5-10.5) 09/14/24 19:00 Total Bilirubin 0.6 mg/dL (0.15-1.2) 09/14/24 19:00 AST 30 U/L (0-40) 09/14/24 19:00 ALT 41 U/L (0-41) 09/14/24 19:00 Alkaline Phosphatase 237 U/L (40-130) H 09/14/24 19:00 Total Protein 5.6 g/dL (6.6-8.7) L 09/14/24 19:00 Albumin 3.6 g/dL (3.5-5.2) 09/14/24 19:00 Globulin 2.0 g/dL (1.3-4.6) 09/14/24 19:00 Lipase 70 U/L (13-60) H 09/14/24 19:00 Urine Color Yellow (Yellow) 09/14/24 19:30 Urine Appearance Clear (CLEAR) 09/14/24 19:30 Urine pH 7.0 (5-7) 09/14/24 19:30 Ur Specific [place] 1.023 (1.005-1.030) 09/14/24 19:30 Urine Protein 1+ (Negative) A 09/14/24 19:30 Urine Glucose (UA) 3+ (Normal) H 09/14/24 19:30 Urine Ketones Negative (Negative) 09/14/24 19:30 Urine Blood Negative (Negative) 09/14/24 19:30 Urine Nitrate Negative (Negative) 09/14/24 19:30 Urine Bilirubin Negative (Negative) 09/14/24 19:30 Urine Urobilinogen 2.0 mg/dL (Negative) H 09/14/24 19:30 Ur Leukocyte Esterase Negative (Negative) 09/14/24 19:30 Urine RBC 0-2 /hpf (0-2) 09/14/24 19:30 Urine WBC 0-5 /hpf (0-5) 09/14/24 19:30 Ur Squamous Epith Cells 0-5 /hpf (0-5) 09/14/24 19:30 Amorphous Sediment Not Reportable 09/14/24 19:30 Urine Bacteria None seen /hpf (NONE) 09/14/24 19:30 Hyaline Casts 1.21 /lpf 09/14/24 19:30 All radiology interpretation(s) finalized by discharge Discharge Plan Discharge Patient Disposition: Home Clinical Impression: Cyst of spleen, Calculus of left kidney Abdominal pain Qualifiers: Abdominal location: unspecified location Qualified Code(s): R10.9 - Unspecified abdominal pain Condition: Stable Prescriptions: No Action (DME) lancets [BD Ultra Fine Lancets] 33 gauge misc See Rx Instructions .ROUTE .MEDSUPPLY Qty: 100 11RF Rx Instructions: check blood sugar twice daily and as needed spironolactone 25 mg tablet 25 mg PO DAILY Qty: 90 1RF Hold Instructions: Resume on 08/21/24. albuterol sulfate 2.5 mg /3 mL (0.083 %) solution for nebulization 2.5 mg inhalation QID PRN (Reason: shortness of breath or wheezing) Qty: 180 5RF albuterol sulfate 90 mcg/actuation HFA aerosol inhaler 2 inh INHALATION Q6H PRN (Reason: Shortness Of Breath) Qty: 8.5 2RF (DME) blood-glucose meter Misc See Rx Instructions .MEDSUPPLY Qty: 1 0RF Rx Instructions: Use as directed for checking blood sugar twice daily (DME) Blood Glucose Test Strip See Rx Instructions .MEDSUPPLY Qty: 200 12RF Rx Instructions: Use as directed with glucometer to check blood sugar twice daily (DME) lancets Mis See Rx Instructions .MEDSUPPLY Qty: 200 12RF Rx Instructions: Use as directed to prick skin for blood sugar checks twice daily alcohol swabs Pads, Medicated 1 pad topical DIRECTED Qty: 200 12RF Rx Instructions: Use as directed to clean skin prior to finger stick or medication injection (DME) nebulizer machine with tubing and mask See Rx Instructions .Route .MEDSUPPLY Qty: 1 0RF Rx Instructions: As directed (DME) Blood Glucose Test Strip See Rx Instructions .ROUTE .MEDSUPPLY Qty: 100 11RF Rx Instructions: Check blood sugar 2 x daily and prn amiodarone 400 mg tablet 400 mg PO DAILY Qty: 90 1RF apixaban 2.5 mg tablet 2.5 mg PO BID 90 Days Qty: 180 1RF ropinirole 0.25 mg tablet 0.25 mg PO .qhs Qty: 30 0RF (DME) blood-glucose meter [Blood Glucose Monitoring] Kit See Rx Instructions .ROUTE .MEDSUPPLY Qty: 1 0RF Rx Instructions: As directed; to test 2 x day and prn (DME) Standard Cpap Device See Rx Instructions .Route Qty: 1 0RF Rx Instructions: As directed WITH SUPPLIES Lasix 40 mg tablet 40 mg PO QAM Qty: 30 5RF insulin glargine [Lantus Solostar U-100 Insulin] 100 unit/mL (3 mL) insulin pen 30 unit SUBCUT BEDTIME Qty: 15 2RF rosuvastatin 40 mg tablet See Rx Instructions .ROUTE .COMPLEX Qty: 30 0RF Dose Instruction: TAKE 1 TABLET BY MOUTH AT BEDTIME Rx Instructions: TAKE 1 TABLET BY MOUTH AT BEDTIME sertraline 100 mg tablet 100 mg PO QAM Qty: 30 2RF pantoprazole 40 mg tablet,delayed release (DR/EC) See Rx Instructions .ROUTE .COMPLEX Qty: 60 0RF Dose Instruction: Take 1 tablet by mouth twice daily Rx Instructions: Take 1 tablet by mouth twice daily dapagliflozin propanediol [Farxiga] 10 mg tablet See Rx Instructions .ROUTE .COMPLEX Qty: 90 1RF Dose Instruction: Take 1 tablet by mouth once daily Rx Instructions: Take 1 tablet by mouth once daily carvedilol 12.5 mg tablet 12.5 mg PO BID Qty: 60 0RF potassium citrate 10 mEq (1,080 mg) tablet extended release 20 meq PO BID allopurinol 300 mg tablet 300 mg PO QAM levocetirizine 5 mg tablet 5 mg PO DAILY fluticasone propionate [Flonase Allergy Relief] 50 mcg/actuation spray,suspension 2 spray intranasal DAILY PRN (Reason: Allergy Symptoms) Rx Instructions: administer into each nostril clopidogrel 75 mg Tablet 75 mg PO DAILY Qty: 30 2RF magnesium L-lactate 84 mg Tablet Extended Release 84 mg PO DAILY Discharge Orders: Discharge ED (Routine); Ordered 09/14/24 Ordered By: Ozzie Laguna Referrals: Lucrecia Blandon FNP [Primary Care Provider] - 1 week Patient Instructions: Abdominal Pain (ED), Kidney Stones (ED) Activity Restrictions/Additional Instructions: Thank you for choosing [facility] for your healthcare needs today. Please realize that you were seen in the emergency department and that we are providing you with an emergency medical screening exam and this may not be a complete and all exclusive of all testing and/or medical workup we may need to determine your element or severity of your illness. It is very important that you follow-up as instructed with your primary care provider or specialist for the additional evaluation and to discuss your medical treatment plan. You may return to the emergency department should you have concerns or if your condition changes or worsens in any way. Coding Level of Care Code ED Torch Shearer for [facility]
[2024-09-14 19:19] VITALS: BP 120/84; PULSE 71; O2SAT 99
[2024-09-14 19:19] LABS: Basophils # 0.1 10^3/uL (0.0-0.1); Basophils % 0.6 %; Eosinophils # 0.2 10^3/uL (0.0-0.8); Eosinophils % 1.6 %; Hematocrit 38.9 % (37-53); Lymphocytes # 2.1 10^3/uL (0.8-4.8); Lymphocytes % 21.1 %; Mean Corpuscular HGB Conc 31.6 g/dL (30-55); Mean Corpuscular Hemoglobin 28.3 pg (27-33); Mean Corpuscular Volume 89.6 fl (82-101); Mean Platelet Volume 11.1 fL (7.4-10.4); Monocytes # 0.7 10^3/uL (0.2-0.9); Monocytes % 6.7 %; Neutrophils # 6.84 10^3/uL (1.8-7.7); Neutrophils % 69.6 %; Nucleated Red Blood Cells % 0 %; Platelet Count 332 10^3/cmm (157-399); Red Blood Count 4.34 10^6/uL (3.85-5.65); Red Cell Distribution Width 15.7 % (12.1-15.1); White Blood Count 9.83 10^3/uL (3.29-11.43)
[2024-09-14 19:37] LABS: Alanine Aminotransferase 41 U/L (0-41); Albumin Level 3.6 g/dL (3.5-5.2); Alkaline Phosphatase 237 U/L (40-130); Anion Gap 14.3 (5-19); Aspartate Amino Transferase 30 U/L (0-40); Blood Urea Nitrogen 22 mg/dL (8-23); Calcium 8.6 mg/dL (8.5-10.5); Carbon Dioxide 26 mmol/L (22-29); Chloride 101 mmol/L (98-107); Creatinine Clr Calc Pharmacy 56.4818; Glomerular Filtration Rate 47.1 mL/min (90-130); Glucose 212 mg/dL (65-115); Lipase 70 U/L (13-60); Osmolality Calculated 296 mOsm/kg (285-295); Potassium 3.3 mmol/L (3.5-5.1); Sodium 138 mmol/L (136-145); Total Bilirubin 0.6 mg/dL (0.15-1.2); Total Protein 5.6 g/dL (6.6-8.7)
[2024-09-14 19:44] LABS: Bilirubin Urine Negative (Negative); Blood Urine Negative (Negative); Glucose Urine UA 3+ (Normal); Ketones Urine Negative (Negative); Leukocyte Esterase Urine Negative (Negative); Nitrate Urine Negative (Negative); Protein Urine 1+ (Negative); Specific Gravity, Urine 1.023 (1.005-1.030); Urine Appearance Clear (CLEAR); Urine Color Yellow (Yellow)
[2024-09-14 19:48] LABS: Add Urine Microscopic? YES; Bacteria Urine None Seen /hpf; Hyaline Casts Urine 1.21 /lpf; RBC Urine 0-2 /hpf (0-2); Squamous Epithelial Cell Urine 0-5 /hpf (0-5); WBC Urine 0-5 /hpf (0-5)
--- NOTE | 2024-09-14 19:48 | CTR_ITS ---
PROCEDURE INFORMATION: Exam: CT Abdomen And Pelvis With Contrast Exam date and time: 09/14/2024 7:59 PM Age: 64 years old Clinical indication: Abdominal pain; Additional info: Ruq/epigastric pain, x 3 days, elevated lipase, n/v TECHNIQUE: Imaging protocol: Computed tomography of the abdomen and pelvis with contrast. Radiation optimization: All CT scans at this facility use at least one of these dose optimization techniques: automated exposure control; mA and/or kV adjustment per patient size (includes targeted exams where dose is matched to clinical indication); or iterative reconstruction. Contrast material: OMNI 350; Contrast volume: 100 ml; Contrast route: INTRAVENOUS (IV); COMPARISON: 1. [place] [id number] 05/30/2024 4:[address] abdomen pelvis w con* [id number] 03/07/2024 10:50 PM RADIATION DOSE METRICS: Total DLP (mGy-cm): 1074.02 FINDINGS: Tubes, catheters and devices: Pacemaker/AICD leads noted. Lungs: Minimal bibasilar atelectasis. Pleural spaces: Trace posterior pleural effusions. Diaphragm: Minimal hiatal hernia. Liver: No acute abnormality. No mass. Gallbladder and biliary ducts: Relatively small contracted gallbladder. No biliary ductal dilatation. Pancreas: No peripancreatic inflammation or fluid. No ductal dilatation. Spleen: Approximately 5 x 5 cm somewhat thick-walled splenic low-attenuation cystic lesion or collection with central fluid attenuation decreased in size compared to prior studies. Approximately 1.5 cm additional incidental small inferior splenic nonspecific low-attenuation lesion. Adrenal glands: No significant or acute abnormality. Kidneys and ureters: Chronic bilateral renal scarring left greater than right, possibly secondary to old renal infarcts. Approximately 7 mm nonobstructing left renal lower pole calculus. No hydronephrosis or hydroureter. Stomach and bowel: No significant large or small bowel distention. No evidence of diverticulitis. Appendix: Grossly normal nondilated visualized appendix. Intraperitoneal space: Minimal ascites. No free air. Vasculature: Atherosclerotic vascular calcification. No aortic aneurysm. Lymph nodes: No enlarged lymph nodes. Urinary bladder: Mildly thickened but incompletely distended urinary bladder. Reproductive: Unremarkable as visualized. Bones/joints: Multilevel spondylosis and degenerative bony changes. Soft tissues: No significant soft tissue abnormalities. CT/CT abdomen pelvis w con* [id number] IMPRESSION: 1. Approximately 5 x 5 cm somewhat thick-walled splenic low-attenuation cystic lesion or collection with central fluid attenuation decreased in size compared to prior studies. Differential diagnosis includes chronic splenic infarct, complicated cyst or abscess versus necrotic mass. 2. Approximately 1.5 cm additional incidental small inferior splenic nonspecific low-attenuation lesion. 3. Chronic bilateral renal scarring left greater than right, possibly secondary to old renal infarcts. 4. Approximately 7 mm nonobstructing left renal lower pole calculus. 5. Mildly thickened urinary bladder which may be secondary to incomplete distention versus cystitis/UTI. 6. Minimal ascites. 7. Trace posterior pleural effusions and minimal bibasilar atelectasis.
[2024-09-14] MEDS: iohexol 350 mg/mL 500 mL Btl (per mL) IV (19:59)
[2024-09-14 20:00] VITALS: BP 121/88; PULSE 71; O2SAT 99
[2024-09-14 20:30] VITALS: BP 111/87; PULSE 70; O2SAT 97
[2024-09-14 21:00] VITALS: BP 122/91; PULSE 71; O2SAT 98
[2024-09-14 21:20] VITALS: BP 120/91; PULSE 71; O2SAT 98
== END 2024-09-14 21:13 | disposition home or self-care (01) ==
PROVIDERS: Emergency Provider Emergency Medicine; PCP Nurse Practitioner Family
DX: N20.0 Calculus of kidney (principal); Z79.4 Long term (current) use of insulin; Z79.02 Long term (current) use of antithrombotics/antiplatelets; E11.9 Type 2 diabetes mellitus without complications; J44.9 Chronic obstructive pulmonary disease, unspecified; I25.10 Atherosclerotic heart disease of native coronary artery without angina pectoris; I50.9 Heart failure, unspecified; Z86.73 Personal history of transient ischemic attack (TIA), and cerebral infarction without residual deficits; Z95.0 Presence of cardiac pacemaker
CPT/HCPCS: 74177; 80053; 81001; 83690; 85025; 99285

== ENCOUNTER 2024-09-29 00:38 | Emergency (ER) | payer MEDICAID, SELFPAY ==
[2024-06-22 09:22] VITALS: BP 110/74; BMI 36.6
[2024-09-29] VITALS (7 sets, daily range): BP systolic 104–114; BP diastolic 66–75; PULSE 69–98; RESP 17–18; TEMP 36.6; O2SAT 96–99; BMI 40.7
--- NOTE | 2024-09-29 00:43 | XRR_ITS ---
PROCEDURE INFORMATION: Exam: XR Chest Exam date and time: 09/29/2024 1:19 AM Age: 64 years old Clinical indication: Dyspnea and shortness of breath; Prior surgery; Surgery date: 6+ months; Surgery type: Pacemaker 2007 TECHNIQUE: Imaging protocol: Radiologic exam of the chest. Views: 1 view. COMPARISON: CR XR chest 1V portable [id number] 08/17/2024 1:07 PM FINDINGS: Lungs: Unremarkable. No consolidation. Pleural spaces: Unremarkable. No pleural effusion. No pneumothorax. Heart/Mediastinum: The heart is quite large. Right-sided pacing device. No change from prior. Old left-sided leads. Bones/joints: Unremarkable. XR/XR chest 1V portable [id number] IMPRESSION: No acute findings.
[2024-09-29 01:14] LABS: Basophils % 0.3 %; Eosinophils # 0.1 10^3/uL (0.0-0.8); Eosinophils % 0.5 %; Hematocrit 36.6 % (37-53); Lymphocytes # 1.5 10^3/uL (0.8-4.8); Lymphocytes % 15.4 %; Mean Corpuscular HGB Conc 30.9 g/dL (30-55); Mean Corpuscular Hemoglobin 26.5 pg (27-33); Mean Corpuscular Volume 85.7 fl (82-101); Monocytes # 0.8 10^3/uL (0.2-0.9); Monocytes % 7.7 %; Neutrophils % 75.7 %; Nucleated Red Blood Cells % 0.2 %; Platelet Count 293 10^3/cmm (157-399); Red Blood Count 4.27 10^6/uL (3.85-5.65); Red Cell Distribution Width 16.2 % (12.1-15.1); White Blood Count 9.78 10^3/uL (3.29-11.43)
[2024-09-29 01:31] LABS: Alanine Aminotransferase 44 U/L (0-41); Albumin Level 3.7 g/dL (3.5-5.2); Alkaline Phosphatase 238 U/L (40-130); Anion Gap 17.5 (5-19); Aspartate Amino Transferase 52 U/L (0-40); Blood Urea Nitrogen 21 mg/dL (8-23); Calcium 8.6 mg/dL (8.5-10.5); Carbon Dioxide 24 mmol/L (22-29); Chloride 100 mmol/L (98-107); Creatinine Clr Calc Pharmacy 57.2477; Globulin 2.5 g/dL (1.3-4.6); Glomerular Filtration Rate 47.1 mL/min (90-130); Glucose 144 mg/dL (65-115); Osmolality Calculated 290 mOsm/kg (285-295); Potassium 4.5 mmol/L (3.5-5.1); Sodium 137 mmol/L (136-145); Total Bilirubin 0.9 mg/dL (0.15-1.2); Total Protein 6.2 g/dL (6.6-8.7)
--- NOTE | 2024-09-29 01:38 | ED_ITS ---
HPI - SOB/Dyspnea 2 General: Chief Complaint: Shortness of Breath/Dyspnea Stated Complaint: SOB Time Seen by Provider: 09/29/24 00:43 History of Present Illness: HPI Narrative: Patient presents to the ER by EMS with complaint of breath, days ago. Patient states he gets more short of breath when he lays down. This been an ongoing issue that just worsened in the last few days but is been started about 5 months ago. Patient also states he has some mild lower abdominal pain. Patient does not have oxygen at home. Does not seem to be any obvious signs of distress and appears nontoxic in appearance. Patient's oxygen saturation on room air is currently 98%. Related Data Home Medications Medication Instructions Recorded Confirmed fluticasone propionate 50 2 spray intranasal DAILY PRN 08/17/23 09/22/24 mcg/actuation nasal Allergy Symptoms spray,suspension (Flonase Allergy Relief) magnesium L-lactate 84 mg 84 mg PO DAILY 03/08/24 09/22/24 tablet,extended release allopurinol 300 mg tablet 300 mg PO QAM 08/17/24 09/22/24 levocetirizine 5 mg tablet 5 mg PO DAILY 08/17/24 09/22/24 potassium citrate 10 mEq (1,080 20 meq PO BID 08/17/24 09/22/24 mg) tablet,extended release Previous Rx's Medication Instructions Recorded blood-glucose meter (Blood Glucose #1 ea 07/06/20 Monitoring kit) nebulizer machine with tubing and #1 ea 09/09/22 mask lancets 33 gauge (BD Ultra Fine #100 ea 12/05/22 Lancets) clopidogrel 75 mg tablet 75 mg PO DAILY #30 tabs 11/20/23 CPAP (Standard Cpap) #1 ea 04/09/24 spironolactone 25 mg tablet 25 mg PO DAILY #90 tabs 04/14/24 amiodarone 400 mg tablet 400 mg PO DAILY #90 tabs 05/10/24 blood sugar diagnostic (Blood #100 ea 05/10/24 Glucose Test strips) carvedilol 12.5 mg tablet 12.5 mg PO BID #60 tabs 06/01/24 albuterol sulfate 2.5 mg/3 mL 2.5 mg (3 mL) inhalation QID PRN 06/03/24 (0.083 %) solution for nebulization shortness of breath or wheezing #180 mL albuterol sulfate 90 mcg/actuation 2 inh inhalation Q6H PRN Shortness 06/03/24 aerosol inhaler Of Breath #8.5 grams furosemide 40 mg tablet (Lasix) 40 mg PO QAM #30 tabs 06/03/24 insulin glargine 100 unit/mL (3 30 unit (0.3 mL) SUBCUT BEDTIME 06/28/24 mL) subcutaneous pen (Lantus #15 mL Solostar U-100 Insulin) alcohol swabs 1 pad topical DIRECTED #200 ea 08/05/24 blood sugar diagnostic (Blood #200 ea 08/05/24 Glucose Test strips) blood-glucose meter #1 ea 08/05/24 lancets #200 ea 08/05/24 rosuvastatin 40 mg tablet See Rx Instructions .Route 08/20/24 .COMPLEX #30 ea pantoprazole 40 mg tablet,delayed See Rx Instructions .Route 08/23/24 release .COMPLEX #60 tabs sertraline 100 mg tablet 100 mg PO QAM #30 tabs 08/23/24 Farxiga 10 mg tablet See Rx Instructions .Route 08/30/24 (dapagliflozin propanediol) .COMPLEX #90 tabs apixaban 2.5 mg tablet 2.5 mg PO BID 90 days #180 tabs 08/31/24 budesonide-formoterol HFA 160 2 puff inhalation BID #10.2 grams 09/22/24 mcg-4.5 mcg/actuation aerosol inhaler (Symbicort) nebulizer hosing and delivery #1 09/22/24 device ropinirole 0.5 mg tablet 0.5 mg PO .qhs #30 tabs 09/22/24 furosemide 20 mg tablet (Lasix) 20 mg PO DAILY #5 tabs 09/29/24 Allergies Allergy/AdvReac Type Severity Reaction Status Date / Time isosorbide Allergy unknown Verified 09/29/24 00:44 Penicillins AdvReac rash Verified 09/29/24 00:44 Review of Systems 2 General: Reports: 10 or more systems reviewed and unremarkable except in HPI and below PFSH ED 2 PFSH: Medical History COPD (chronic obstructive pulmonary disease) Cardiomyopathy Coronary artery disease Type 2 diabetes mellitus Cardiac resynchronization therapy defibrillator ([employer]-D) in place [employer] [place]. [place], 07/11/2020 Mixed hyperlipidemia Hypertension CVA (cerebral vascular accident) PVCs (premature ventricular contractions) Hypomagnesemia Infarction of spleen Nausea & vomiting Gastroparesis Major depressive disorder, recurrent episode, mild degree Major depressive disorder in partial remission Allergic rhinitis Bipolar II disorder Diabetes Non-ST elevation PR (NSTEMI) Uses bilevel positive airway pressure (BPAP) ventilation at home 12/8cm Dysarthria Unstable angina Nonischemic congestive cardiomyopathy Chronic low back pain Elevated blood uric acid level History of sleep study 2017 at [facility]: Optimal pressure settings with BiPAP found to be 12/8 cm COVID-19 Wound infection following procedure infection with defibrillator lead revision, removed , scarring left subclavian area from this GERD (gastroesophageal reflux disease) ALBERTO (obstructive sleep apnea) C. difficile diarrhea Cataracts, bilateral CHF (congestive heart failure) Urolithiasis Multi stone former, calcium oxalate mono and dihydrate. Also calcium phosphate. Multiple interventions including endoscopy with laser lithotripsy and ESWL. Metabolic treatment with potassium citrate Hemorrhoids Psychiatric care Right ureteral calculus Osteoarthritis of hands, bilateral Pacemaker Surgical History S/P epidural steroid injection Status post hemorrhoidectomy Hx of umbilical hernia repair Hx of lithotripsy History of urethral stent H/O esophagogastroduodenoscopy (02/27/21) gastritis, duodenitis History of colonoscopy (02/27/21) descending colon polyp, hemorrhoids History of carpal tunnel release of both wrists History of permanent cardiac pacemaker placement Hx of cataract surgery Hx of shoulder surgery Family History Grandfather CAD (coronary artery disease) Brother Cancer colon cancer Diabetes Mother Diabetes Father No problems noted. Other Hypertension Rheumatoid arthritis Social History Smoking and tobacco/nicotine status: never used tobacco/nicotine Second hand smoke exposure: No Alcohol intake: former Year of sobriety/quit date alcohol: 1997 Substance/Drug Use: former Date of last use: 1997 Caregiver/support person: Yes Lives independently: Yes Household members: spouse Marital status: service: No Current occupational status: disabled Current gender identity: Male Special fernando needs: No Agree to transfusion: Yes Physical Exam 2 Const: COMMON NORMALS: no acute distress, average body habitus, patient oriented x3, no limitations, healthy appearing, alert and well nourished HENMT: COMMON NORMALS: normocephalic, atraumatic, hearing grossly normal bilaterally, external ears normal, Normal external nose present and moist oral mucous membranes HEAD & SCALP: normocephalic and atraumatic NOSE: Normal external nose present EXTERNAL EAR: Yes external ears normal Neck/C-Spine: COMMON NORMALS: no JVD Chest: COMMONS NORMALS: normal inspection of the chest and normal palpation of entire chest wall Resp: COMMON NORMALS: normal respiratory effort, No retractions, No use of accessory muscles and clear to auscultation bilaterally AUSCULTATION: clear to auscultation bilaterally Cardio: COMMON NORMALS: no JVD, regular rate, regular rhythm, S1 normal heart sound present, S2 normal heart sound present, No gallops present (Cardio), No clicks present (Cardio), No murmurs present (Cardio) and No rub (Cardio) R ATE: regular rate RHYTHM: regular rhythm HEART SOUNDS: S1 normal heart sound present and S2 normal heart sound present GI: COMMON NORMALS: Normal to inspection, nondistended, normoactive bowel sounds present, Soft to palpation, non-tender, No hepatosplenomegaly present and no masses PALPATION: Yes Soft to palpation and Yes No hepatosplenomegaly present Neuro: COMMON NORMALS: patient oriented x3 SENSORIUM/ORIENTATION: Yes alert Course 2 Vital Signs: Vital signs: Vital Signs Temperature 97.8 F 09/29/24 00:39 Pulse Rate 70 09/29/24 02:30 Respiratory Rate 17 09/29/24 02:00 Blood Pressure 110/71 09/29/24 02:30 Pulse Oximetry 96 09/29/24 02:30 Oxygen Delivery Me thod Room Air 09/29/24 02:30 MDM - SOB/Dyspnea Medical Decision Making Lab work was obtained as well as chest x-ray, patient is given additional 40 mg Lasix IV which produced diuresis. X-ray is read off as no acute findings, patient will be discharged home we will increase his Lasix and 40 to 60 mg a day for the next 5 days. Medical Records I reviewed the patient's medical records. Lab Data I reviewed the patient's lab results. 09/29/24 01:07 09/29/24 01:07 Labs/Radiology: Radiology Impressions Chest X-Ray 09/29/24 00:43 IMPRESSION: No acute findings. Laboratory Results WBC 9.78 10^3/uL (3.29-11.43) 09/29/24 01:07 RBC 4.27 10^6/uL (3.85-5.65) 09/29/24 01:07 Hgb 11.30 g/dL (11.27-16.99) 09/29/24 01:07 Hct 36.6 % (37-53) L 09/29/24 01:07 MCV 85.7 fl (82-101) 09/29/24 01:07 MCH 26.5 pg (27-33) L 09/29/24 01:07 MCHC 30.9 g/dL (30-55) 09/29/24 01:07 RDW 16.2 % (12.1-15.1) H 09/29/24 01:07 Plt Count 293 10^3/cmm (157-399) 09/29/24 01:07 MPV 11.0 fL (7.4-10.4) H 09/29/24 01:07 Neut % (Auto) 75.7 % 09/29/24 01:07 Lymph % (Auto) 15.4 % 09/29/24 01:07 [place] % (Auto) 7.7 % 09/29/24 01:07 Eos % (Auto) 0.5 % 09/29/24 01:07 Baso % (Auto) 0.3 % 09/29/24 01:07 Neut # (Auto) 7.40 10^3/uL (1.8-7.7) 09/29/24 01:07 Lymph # (Auto) 1.5 10^3/uL (0.8-4.8) 09/29/24 01:07 [place] # (Auto) 0.8 10^3/uL (0.2-0.9) 09/29/24 01:07 Eos # (Auto) 0.1 10^3/uL (0.0-0.8) 09/29/24 01:07 Baso # (Auto) 0.0 10^3/uL (0.0-0.1) 09/29/24 01:07 Nucleated RBC % (auto) 0.2 % 09/29/24 01:07 Nucleated RBCs # 0.0 /100WBC 09/29/24 01:07 Sodium 137 mmol/L (136-145) 09/29/24 01:07 Potassium 4.5 mmol/L (3.5-5.1) 09/29/24 01:07 Chloride 100 mmol/L (98-107) 09/29/24 01:07 Carbon Dioxide 24 mmol/L (22-29) 09/29/24 01:07 Anion Gap 17.5 (5-19) 09/29/24 01:07 BUN 21 mg/dL (8-23) 09/29/24 01:07 Creatinine 1.5 mg/dL (0.7-1.2) H 09/29/24 01:07 GFR Calculation 47.1 mL/min (90-130) L 09/29/24 01:07 Glucose 144 mg/dL (65-115) H 09/29/24 01:07 Calculated Osmolality 290 mOsm/kg (285-295) 09/29/24 01:07 Calcium 8.6 mg/dL (8.5-10.5) 09/29/24 01:07 Total Bilirubin 0.9 mg/dL (0.15-1.2) 09/29/24 01:07 AST 52 U/L (0-40) H 09/29/24 01:07 ALT 44 U/L (0-41) H 09/29/24 01:07 Alkaline Phosphatase 238 U/L (40-130) H 09/29/24 01:07 NT-Pro-B Natriuret Pep 4305 pg/mL (0-125) H 09/29/24 01:07 Total Protein 6.2 g/dL (6.6-8.7) L 09/29/24 01:07 Albumin 3.7 g/dL (3.5-5.2) 09/29/24 01:07 Globulin 2.5 g/dL (1.3-4.6) 09/29/24 01:07 Urine Color Yellow (Yellow) 09/29/24:28 Urine Appearance Clear (CLEAR) 09/29/24 01:28 Urine pH 6.0 (5-7) 09/29/24 01:28 Ur Specific [place] 1.025 (1.005-1.030) 09/29/24 01:28 Urine Protein Trace (Negative) A 09/29/24 01:28 Urine Glucose (UA) 3+ (Normal) H 09/29/24 01:28 Urine Ketones Negative (Negative) 09/29/24 01:28 Urine Blood Negative (Negative) 09/29/24 01:28 Urine Nitrate Negative (Negative) 09/29/24 01:28 Urine Bilirubin Negative (Negative) 09/29/24 01:28 Urine Urobilinogen 2.0 mg/dL (Negative) H 09/29/24 01:28 Ur Leukocyte Esterase Negative (Negative) 09/29/24 01:28 Urine RBC 0-2 /hpf (0-2) 09/29/24 01:28 Urine WBC 0-5 /hpf (0-5) 09/29/24 01:28 Ur Squamous Epith Cells 0-5 /hpf (0-5) 09/29/24 01:28 Amorphous Sediment Not Reportable 09/29/24 01:28 Urine Bacteria None seen /hpf (NONE) 09/29/24 01:28 Hyaline Casts 0-4 /lpf H 09/29/24 01:28 All radiology interpretation(s) finalized by discharge Discharge Plan Discharge Patient Disposition: Home Clinical Impression: Dyspnea Qualifiers: Dyspnea type: unspecified Qualified Code(s): R06.00 - Dyspnea, unspecified Condition: Stable Prescriptions: New furosemide [Lasix] 20 mg tablet 20 mg PO DAILY Qty: 5 0RF Rx Instructions: In addition to your 40 mg you have at home currently for a total of 60 mg a day for the next 5 days. No Action (DME) lancets [BD Ultra Fine Lancets] 33 gauge misc See Rx Instructions .ROUTE .MEDSUPPLY Qty: 100 11RF Rx Instructions: check blood sugar twice daily and as needed spironolactone 25 mg tablet 25 mg PO DAILY Qty: 90 1RF Hold Instructions: Resume on 08/21/24. albuterol sulfate 2.5 mg /3 mL (0.083 %) solution for nebulization 2.5 mg inhalation QID PRN (Reason: shortness of breath or wheezing) Qty: 180 5RF albuterol sulfate 90 mcg/actuation HFA aerosol inhaler 2 inh INHALATION Q6H PRN (Reason: Shortness Of Breath) Qty: 8.5 2RF (DME) blood-glucose meter Misc See Rx Instructions .MEDSUPPLY Qty: 1 0RF Rx Instructions: Use as directed for checking blood sugar twice daily (DME) Blood Glucose Test Strip See Rx Instructions .MEDSUPPLY Qty: 200 12RF Rx Instructions: Use as directed with glucometer to check blood sugar twice daily (DME) lancets Misc See Rx Instructions .MEDSUPPLY Qty: 200 12RF Rx Instructions: Use as directed to prick skin for blood sugar checks twice daily alcohol swabs Pads, Medicated 1 pad topical DIRECTED Qty: 200 12RF Rx Instructions: Use as directed to clean skin prior to finger stick or medication injection (DME) nebulizer machine with tubing and mask See Rx Instructions .Route .MEDSUPPLY Qty: 1 0RF Rx Instructions: As directed (DME) Blood Glucose Test Strip See Rx Instructions .ROUTE .MEDSUPPLY Qty: 100 11RF Rx Instructions: Check blood sugar 2 x daily and prn amiodarone 400 mg tablet 400 mg PO DAILY Qty: 90 1RF apixaban 2.5 mg tablet 2.5 mg PO BID 90 Days Qty: 180 1RF ropinirole 0.5 mg tablet 0.5 mg PO .qhs Qty: 30 0RF budesonide-formoterol [Symbicort] 160-4.5 mcg/actuation HFA aerosol inhaler 2 puff inhalation BID Qty: 10.2 0RF (DME) nebulizer hosing and delivery device See Rx Instructions .Route .MEDSUPPLY Qty: 1 12RF Rx Instructions: As directed (DME) blood-glucose meter [Blood Glucose Monitoring] Kit See Rx Instructions .ROUTE .MEDSUPPLY Qty: 1 0RF Rx Instructions: As directed; to test 2 x day and prn (DME) Standard Cpap Device See Rx Instructions .Route Qty: 1 0RF Rx Instructions: As directed WITH SUPPLIES Lasix 40 mg tablet 40 mg PO QAM Qty: 30 5RF insulin glargine [Lantus Solostar U-100 Insulin] 100 unit/mL (3 mL) insulin pen 30 unit SUBCUT BEDTIME Qty: 15 2RF rosuvastatin 40 mg tablet See Rx Instructions .ROUTE .COMPLEX Qty: 30 0RF Dose Instruction: TAKE 1 TABLET BY MOUTH AT BEDTIME Rx Instructions: TAKE 1 TABLET BY MOUTH AT BEDTIME sertraline 100 mg tablet 100 mg PO QAM Qty: 30 2RF pantoprazole 40 mg tablet,delayed release (DR/EC) See Rx Instructions .ROUTE .COMPLEX Qty: 60 0RF Dose Instruction: Take 1 tablet by mouth twice daily Rx Instructions: Take 1 tablet by mouth twice daily dapagliflozin propanediol [Farxiga] 10 mg tablet See Rx Instructions .ROUTE .COMPLEX Qty: 90 1RF Dose Instruction: Take 1 tablet by mouth once daily Rx Instructions: Take 1 tablet by mouth once daily carvedilol 12.5 mg tablet 12.5 mg PO BID Qty: 60 0RF potassium citrate 10 mEq (1,080 mg) tablet extended release 20 meq PO BID allopurinol 300 mg tablet 300 mg PO QAM levocetirizine 5 mg tablet 5 mg PO DAILY fluticasone propionate [Flonase Allergy Relief] 50 mcg/actuation spray,suspension 2 spray intranasal DAILY PRN (Reason: Allergy Symptoms) Rx Instructions: administer into each nostril clopidogrel 75 mg Tablet 75 mg PO DAILY Qty: 30 2RF magnesium L-lactate 84 mg Tablet Extended Release 84 mg PO DAILY Discharge Orders: Discharge ED (Routine); Ordered 09/29/24 Ordered By: Ozzie Laguna Referrals: Lucrecia Blandon FNP [Primary Care Provider] - 1 week Patient Instructions: Heart Failure (ED), Dyspnea (ED) Activity Restrictions/Additional Instructions: Prescribed more Lasix. Please take this in addition to your daily Lasix you are already taking for the next 5 days. This will help diurese the excess fluid off your body and help you breathe easier. Please follow-up with your family practitioner in the next 7 days for further evaluation and treatment. Coding Level of Care Code ED Stage Builder for [facility]
[2024-09-29 01:52] LABS: Bilirubin Urine Negative (Negative); Blood Urine Negative (Negative); Glucose Urine UA 3+ (Normal); Ketones Urine Negative (Negative); Leukocyte Esterase Urine Negative (Negative); Nitrate Urine Negative (Negative); Protein Urine Trace (Negative); Specific Gravity, Urine 1.025 (1.005-1.030); Urine Appearance Clear (CLEAR); Urine Color Yellow (Yellow)
[2024-09-29 01:57] LABS: Add Urine Microscopic? YES; Bacteria Urine None Seen /hpf; Hyaline Casts Urine 0-4 /lpf; RBC Urine 0-2 /hpf (0-2); Squamous Epithelial Cell Urine 0-5 /hpf (0-5); WBC Urine 0-5 /hpf (0-5)
[2024-09-29 02:15] LABS: NT Pro B Type Natriuretic Pept 4305 pg/mL (0-125)
[2024-09-29] MEDS: FUROsemide 10 mg/mL SDV 4mL 40 MG IVP (02:26)
== END 2024-09-29 03:35 | disposition home or self-care (01) ==
PROVIDERS: Emergency Provider Emergency Medicine; PCP Nurse Practitioner Family
DX: R06.00 Dyspnea, unspecified (principal); E11.9 Type 2 diabetes mellitus without complications; I11.0 Hypertensive heart disease with heart failure; I50.9 Heart failure, unspecified; Z95.0 Presence of cardiac pacemaker; Z86.73 Personal history of transient ischemic attack (TIA), and cerebral infarction without residual deficits; J44.9 Chronic obstructive pulmonary disease, unspecified; E78.2 Mixed hyperlipidemia
CPT/HCPCS: 71045; 80053; 81001; 83880; 85025; 96374; 99284; J1940

== ENCOUNTER 2024-10-07 16:45 | Observation (INO) | payer MEDICAID, SELFPAY ==
[2024-06-22 09:22] VITALS: BP 110/74; BMI 36.6
[2024-10-07] VITALS (7 sets, daily range): BP systolic 108–129; BP diastolic 70–91; PULSE 69–70; RESP 17–20; TEMP 36.6; O2SAT 95–100; BMI 41.4
--- NOTE | 2024-10-07 17:25 | XRR_ITS ---
PROCEDURE INFORMATION: Exam: XR Chest Exam date and time: 10/07/2024 6:44 PM Age: 64 years old Clinical indication: Pain; Chest pressure; Additional info: SOB TECHNIQUE: Imaging protocol: Radiologic exam of the chest. Views: 1 view. COMPARISON: CR (CHEST, ) 09/29/2024 1:19 AM FINDINGS: Tubes, catheters and devices: Cardiac pacer device. Additional abandoned pacer leads. Lungs: No consolidation. Pleural spaces: No large pleural effusion. No pneumothorax. Heart/Mediastinum: Cardiomegaly, unchanged. Bones/joints: No acute abnormality. XR/XR chest 1V portable [id number] IMPRESSION: No new/acute findings. Unchanged cardiomegaly.
[2024-10-07 19:09] LABS: Basophils % 0.3 %; Eosinophils # 0.1 10^3/uL (0.0-0.8); Eosinophils % 0.4 %; Hematocrit 37.4 % (37-53); Lymphocytes # 1.7 10^3/uL (0.8-4.8); Lymphocytes % 15.3 %; Mean Corpuscular HGB Conc 30.7 g/dL (30-55); Mean Corpuscular Hemoglobin 26.1 pg (27-33); Mean Platelet Volume 11.5 fL (7.4-10.4); Monocytes # 1.3 10^3/uL (0.2-0.9); Monocytes % 11.4 %; Neutrophils # 8.09 10^3/uL (1.8-7.7); Neutrophils % 72.2 %; Nucleated Red Blood Cells % 0 %; Platelet Count 280 10^3/cmm (157-399); Red Cell Distribution Width 16.9 % (12.1-15.1); White Blood Count 11.21 10^3/uL (3.29-11.43)
--- NOTE | 2024-10-07 19:23 | ED_ITS ---
HPI - SOB/Dyspnea 2 General: Chief Complaint: Shortness of Breath/Dyspnea Stated Complaint: Cant Pee Time Seen by Provider: 10/07/24 18:46 History of Present Illness: HPI Narrative: 64-year-old man with history of congesti ve heart failure presents emergency room with shortness of breath and minimal urine output. He says he took 240 mg Lasix this morning and is only had a small amount of urine output. He has been having orthopnea and shortness of breath and worsening lower extremity swelling. Related Data Home Medications Medication Instructions Recorded Confirmed fluticasone propionate 50 2 spray intranasal DAILY PRN 08/17/23 10/04/24 mcg/actuation nasal Allergy Symptoms spray,suspension (Flonase Allergy Relief) magnesium L-lactate 84 mg 84 mg PO DAILY 03/08/24 10/04/24 tablet,extended release allopurinol 300 mg tablet 300 mg PO QAM 08/17/24 10/04/24 levocetirizine 5 mg tablet 5 mg PO DAILY 08/17/24 10/04/24 potassium citrate 10 mEq (1,080 20 meq PO BID 08/17/24 10/04/24 mg) tablet,extended release Previous Rx's Medication Instructions Recorded blood-glucose meter (Blood Glucose #1 ea 07/06/20 Monitoring kit) nebulizer machine with tubing and #1 ea 09/09/22 mask lancets 33 gauge (BD Ultra Fine #100 ea 12/05/22 Lancets) clopidogrel 75 mg tablet 75 mg PO DAILY #30 tabs 11/20/23 CPAP (Standard Cpap) #1 ea 04/09/24 spironolactone 25 mg tablet 25 mg PO DAILY #90 tabs 04/14/24 amiodarone 400 mg tablet 400 mg PO DAILY #90 tabs 05/10/24 blood sugar diagnostic (Blood #100 ea 05/10/24 Glucose Test strips) carvedilol 12.5 mg tablet 12.5 mg PO BID #60 tabs 06/01/24 albuterol sulfate 2.5 mg/3 mL 2.5 mg (3 mL) inhalation QID PRN 06/03/24 (0.083 %) solution for nebulization shortness of breath or wheezing #180 mL albuterol sulfate 90 mcg/actuation 2 inh inhalation Q6H PRN Shortness 06/03/24 aerosol inhaler Of Breath #8.5 grams furosemide 40 mg tablet (Lasix) 40 mg PO QAM #30 tabs 06/03/24 insulin glargine 100 unit/mL (3 30 unit (0.3 mL) SUBCUT BEDTIME 06/28/24 mL) subcutaneous pen (Lantus #15 mL Solostar U-100 Insulin) alcohol swabs 1 pad topical DIRECTED #200 ea 08/05/24 blood sugar diagnostic (Blood #200 ea 08/05/24 Glucose Test strips) blood-glucose meter #1 ea 08/05/24 lancets #200 ea 08/05/24 rosuvastatin 40 mg tablet See Rx Instructions .Route 08/20/24 .COMPLEX #30 ea pantoprazole 40 mg tablet,delayed See Rx Instructions .Route 08/23/24 release .COMPLEX #60 tabs sertraline 100 mg tablet 100 mg PO QAM #30 tabs 08/23/24 Farxiga 10 mg tablet See Rx Instructions .Route 08/30/24 (dapagliflozin propanediol) .COMPLEX #90 tabs apixaban 2.5 mg tablet 2.5 mg PO BID 90 days #180 tabs 08/31/24 budesonide-formoterol HFA 160 2 puff inhalation BID #10.2 grams 09/22/24 mcg-4.5 mcg/actuation aerosol inhaler (Symbicort) nebulizer hosing and delivery #1 ea 09/22/24 device ropinirole 0.5 mg tablet 0.5 mg PO .qhs #30 tabs 09/22/24 furosemide 20 mg tablet (Lasix) 20 mg PO DAILY #5 tabs 09/29/24 Allergies Allergy/AdvReac Type Severity Reaction Status Date / Time isosorbide Allergy unknown Verified 10/07/24 17:23 Penicillins AdvReac rash Verified 10/07/24 17:23 Review of Systems 2 Narrative: Constitutional symptoms: Negative except as documented in HPI. Skin symptoms: Negative except as documented in HPI. Eye symptoms: Negative except as documented in HPI. ENMT symptoms: Negative except as documented in HPI. Respiratory symptoms: Negative except as documented in HPI. Cardiovascular symptoms: Negative except as documented in HPI. Gastrointestinal symptoms: Negative except as documented in HPI. Genitourinary symptoms: Negative except as documented in HPI. Musculoskeletal symptoms: Negative except as documented in HPI. Neurologic symptoms: Negative except as documented in HPI. Psychiatric symptoms: Negative except as documented in HPI. Endocrine symptoms: Negative except as documented in HPI. PFSH ED 2 PFSH: Medical History COPD (chronic obstructive pulmonary disease) Cardiomyopathy Coronary artery disease Type 2 diabetes mellitus Cardiac resynchronization therapy defibrillator (COMFORT ADVISOR-D) in place [facility] Dr. [place], 07/11/2020 Mixed hyperlipidemia Hypertension CVA (cerebral vascular accident) PVCs (premature ventricular contractions) Hypomagnesemia Infarction of spleen Nausea & vomiting Gastroparesis Major depressive disorder, recurrent episode, mild degree Major depressive disorder in partial remission Allergic rhinitis Bipolar II disorder Diabetes Non-ST elevation [place] (NSTEMI) Uses bilevel positive airway pressure (BPAP) ventilation at home 12/8cm Dysarthria Unstable angina Nonischemic congestive cardiomyopathy Chronic low back pain Elevated blood uric acid level History of sleep study 2017 at [facility]: Optimal pressure settings with BiPAP found to be 12/8 cm COVID-19 Wound infection following procedure infection with defibrillator lead revision, removed , scarring left subclavian area from this GERD (gastroesophageal reflux disease) ALBERTO (obstructive sleep apnea) C. difficile diarrhea Cataracts, bilateral CHF (congestive heart failure) Urolithiasis Multi stone former, calcium oxalate mono and dihydrate. Also calcium phosphate. Multiple interventions including endoscopy with laser lithotripsy and ESWL. Metabolic treatment with potassium citrate Hemorrhoids Psychiatric care Right ureteral calculus Osteoarthritis of hands, bilateral Pacemaker Surgical History S/P epidural steroid injection Status post hemorrhoidectomy Hx of umbilical hernia repair Hx of lithotripsy History of urethral stent H/O esophagogastroduodenoscopy (02/27/21) gastritis, duodenitis History of colonoscopy (02/27/21) descending colon polyp, hemorrhoids History of carpal tunnel release of both wrists History of permanent cardiac pacemaker placement Hx of cataract surgery Hx of shoulder surgery Family History Grandfather CAD (coronary artery disease) Brother Cancer colon cancer Diabetes Mother Diabetes Father No problems noted. Other Hypertension Rheumatoid arthritis Social History Smoking and tobacco/nicotine status: never used tobacco/nicotine Second hand smoke exposure: No Alcohol intake: former Year of sobriety/quit date alcohol: 1997 Substance/Drug Use: former Date of last use: 1997 Caregiver/support person: Yes Lives independently: Yes Household members: spouse Marital status: service: No Current occupational status: disabled Current gender identity: Male Special fernando needs: No Agree to transfusion: Yes Physical Exam 2 Narrative: EXAM NARRATIVE: General: Alert, no acute distress. Skin: Warm, dry. Head: Normocephalic, atraumatic. Neck: Supple, trachea midline. Eye: Extraocular movements are intact. Ears, nose, mouth and throat: mucosa moist. Cardiovascular: Regular, Normal peripheral perfusion. Tibial edema Respiratory: Lungs are clear to auscultation, respirations are non-labored, breath sounds are equal, Symmetrical chest wall expansion. Gastrointestinal: Soft, Nontender, distended Musculoskeletal: Normal ROM, no deformity. Neurological: Alert and oriented, No focal neurological deficit observed. Psychiatric: Cooperative, appropriate mood & affect. Course 2 Vital Signs: Vital signs: Vital Signs Temperature 97.9 F 10/07/24 17:21 Pulse Rate 70 10/07/24 17:21 Blood Pressure 108/70 10/07/24 17:21 Pulse Oximetry 100 10/07/24 17:21 Oxygen Delivery Me thod Room Air 10/07/24 17:21 MDM - SOB/Dyspnea Medical Decision Making Differential diagnosis for patient with shortness of breath includes but is not limited to and based on the above HPI, review of systems and physical exam: Pneumonia. Bronchitis. Asthma or COPD with acute exacerbation. Acute coronary syndrome / [place]. Pulmonary embolism. Anxiety. Congestive heart failure. Viral infections including influenza and Covid-19. Atrial fibrillation. Anxiety. Pleural effusion. Pneumothorax. Orders placed to evaluate differential diagnosis based on the above differential, HPI and physical exam Chest x-ray: Cardiomegaly. But appears to be a [place] pacemaker and wires are present. No obvious infiltrates or edema. This was reviewed and interpreted by myself the emergency room physician. I also reviewed the radiology report. Lab Review: Laboratory results were reviewed and interpreted by myself the emergency room physician. White count mildly elevated 11,000. Hemoglobin normal 11.5. BUN and creatinine are stable at 31.6. This is around his baseline. Liver enzymes are elevated at 580 and 420. Concerned that he may have some cardiohepatic type syndrome going on. He does have increased abdominal distention which would indicate some ascites secondary to his heart failure. He does not have any focal abdominal tenderness. Particularly he has no tenderness over his left upper quadrant I reviewed the patient's medical record. Reexamination: Patient remained stable. No increased work of breathing. No altered mental status. No focal motor deficits. Consultation: I spoke with Dr. Hall who is on-call for the hospitalist service and he agrees to admission to observation. Failed outpatient therapy with p.o. Lasix. IV diuresis Assessment and plan: CHF Transaminitis ?80 mg IV Lasix in the emergency room -I discussed the patient with the hospitalist on-call who is admitting the patient. - Discussed findings and plan with patient. Answered any questions. - All laboratory values were reviewed and interpreted personally by myself, the ER physician - All imaging was reviewed and interpreted personally by myself, the ER physician. - Evaluation and treatment of this problem were appropriate in the emergency setting Lab Data 10/07/24 18:55 10/07/24 18:55 Labs/Radiology: Laboratory Results WBC 11.21 10^3/uL (3.29-11.43) 10/07/24 18:55 RBC 4.40 10^6/uL (3.85-5.65) 10/07/24 18:55 Hgb 11.50 g/dL (11.27-16.99) 10/07/24 18:55 Hct 37.4 % (37-53) 10/07/24 18:55 MCV 85.0 fl (82-101) 10/07/24 18:55 MCH 26.1 pg (27-33) L 10/07/24 18:55 MCHC 30.7 g/dL (30-55) 10/07/24 18:55 RDW 16.9 % (12.1-15.1) H 10/07/24 18:55 Plt Count 280 10^3/cmm (157-399) 10/07/24 18:55 MPV 11.5 fL (7.4-10.4) H 10/07/24 18:55 Neut % (Auto) 72.2 % 10/07/24 18:55 Lymph % (Auto) 15.3 % 10/07/24 18:55 [place] % (Auto) 11.4 % 10/07/24 18:55 Eos % (Auto) 0.4 % 10/07/24 18:55 Baso % (Auto) 0.3 % 10/07/24 18:55 Neut # (Auto) 8.09 10^3/uL (1.8-7.7) H 10/07/24 18:55 Lymph # (Auto) 1.7 10^3/uL (0.8-4.8) 10/07/24 18:55 [place] # (Auto) 1.3 10^3/uL (0.2-0.9) H 10/07/24 18:55 Eos # (Auto) 0.1 10^3/uL (0.0-0.8) 10/07/24 18:55 Baso # (Auto) 0.0 10^3/uL (0.0-0.1) 10/07/24 18:55 Nucleated RBC % (auto) 0 % 10/07/24 18:55 Nucleated RBCs # 0.0 /100WBC 10/07/24 18:55 Sodium 130 mmol/L (136-145) L 10/07/24 18:55 Potassium 4.4 mmol/L (3.5-5.1) 10/07/24 18:55 Chloride 95 mmol/L (98-107) L 10/07/24 18:55 Carbon Dioxide 23 mmol/L (22-29) 10/07/24 18:55 Anion Gap 16.4 (5-19) 10/07/24 18:55 BUN 30 mg/dL (8-23) H 10/07/24 18:55 Creatinine 1.6 mg/dL (0.7-1.2) H 10/07/24 18:55 GFR Calculation 43.7 mL/min (90-130) L 10/07/24 18:55 Glucose 145 mg/dL (65-115) H 10/07/24 18:55 Calculated Osmolality 279 mOsm/kg (285-295) L 10/07/24 18:55 Calcium 9.0 mg/dL (8.5-10.5) 10/07/24 18:55 Total Bilirubin 1.8 mg/dL (0.15-1.2) H 10/07/24 18:55 AST 584 U/L (0-40) H 10/07/24 18:55 ALT 424 U/L (0-41) H 10/07/24 18:55 Alkaline Phosphatase 325 U/L (40-130) H 10/07/24 18:55 NT-Pro-B Natriuret Pep 3124 pg/mL (0-125) H 10/07/24 18:55 Total Protein 5.6 g/dL (6.6-8.7) L 10/07/24 18:55 Albumin 3.3 g/dL (3.5-5.2) L 10/07/24 18:55 Globulin 2.3 g/dL (1.3-4.6) 10/07/24 18:55 Urine Color Yellow (Yellow) 10/07/24 19:25 Urine Appearance Clear (CLEAR) 10/07/24 19:25 Urine pH 6.5 (5-7) 10/07/24 19:25 Ur Specific [place] 1.017 (1.005-1.030) 10/07/24 19:25 Urine Protein Negative (Negative) 10/07/24 19:25 Urine Glucose (UA) 3+ (Normal) H 10/07/24 19:25 Urine Ketones Negative (Negative) 10/07/24 19:25 Urine Blood Non-haemolysed trace (Negative) 10/07/24 19:25 Urine Nitrate Negative (Negative) 10/07/24 19:25 Urine Bilirubin Negative (Negative) 10/07/24 19:25 Urine Urobilinogen 2.0 mg/dL (Negative) H 10/07/24 19:25 Ur Leukocyte Esterase Negative (Negative) 10/07/24 19:25 Urine RBC 6-10 /hpf (0-2) 10/07/24 19:25 Urine WBC 0-5 /hpf (0-5) 10/07/24 19:25 Ur Squamous Epith Cells 0-5 /hpf (0-5) 10/07/24 19:25 Amorphous Sediment Not Reportable 10/07/24 19:25 Urine Bacteria None seen /hpf (NONE) 10/07/24 19:25 Hyaline Casts 0.81 /lpf 10/07/24 19:25 All radiology interpretation(s) finalized by discharge Discharge Plan Discharge Patient Disposition: Placed in Observation Clinical Impression: Congestive heart failure, Transaminitis Coding Level of Care Code ED [facility] [employer]
[2024-10-07 19:29] LABS: Alanine Aminotransferase 424 U/L (0-41); Albumin Level 3.3 g/dL (3.5-5.2); Alkaline Phosphatase 325 U/L (40-130); Anion Gap 16.4 (5-19); Aspartate Amino Transferase 584 U/L (0-40); Blood Urea Nitrogen 30 mg/dL (8-23); Carbon Dioxide 23 mmol/L (22-29); Chloride 95 mmol/L (98-107); Creatinine Clr Calc Pharmacy 54.1487; Globulin 2.3 g/dL (1.3-4.6); Glomerular Filtration Rate 43.7 mL/min (90-130); Glucose 145 mg/dL (65-115); NT Pro B Type Natriuretic Pept 3124 pg/mL (0-125); Osmolality Calculated 279 mOsm/kg (285-295); Potassium 4.4 mmol/L (3.5-5.1); Sodium 130 mmol/L (136-145); Total Bilirubin 1.8 mg/dL (0.15-1.2); Total Protein 5.6 g/dL (6.6-8.7)
[2024-10-07 19:33] LABS: Bilirubin Urine Negative (Negative); Blood Urine Non-haemolysed trace (Negative); Glucose Urine UA 3+ (Normal); Ketones Urine Negative (Negative); Leukocyte Esterase Urine Negative (Negative); Nitrate Urine Negative (Negative); Protein Urine Negative (Negative); Specific Gravity, Urine 1.017 (1.005-1.030); Urine Appearance Clear (CLEAR); Urine Color Yellow (Yellow); pH Urine 6.5 (5-7)
[2024-10-07 19:37] LABS: Add Urine Microscopic? YES; Bacteria Urine None Seen /hpf; Hyaline Casts Urine 0.81 /lpf; Squamous Epithelial Cell Urine 0-5 /hpf (0-5); WBC Urine 0-5 /hpf (0-5)
[2024-10-07] MEDS: FUROsemide 10 mg/mL SDV 10mL 80 MG IVP (20:32)
[2024-10-07 21:50] LABS: D Dimer 2.87 ug/mLFEU (0-0.59)
[2024-10-07 21:52] LABS: Lactic Sepsis W/Reflex 2.8 mmol/L (0.5-2.2)
--- NOTE | 2024-10-07 22:30 | PM.HP ---
Providers/Chief Complaint Admitting Physician: Tony Hall MD Primary Care Provider: ANDRES Pettit Chief Complaint: Cant Pee\Bloated History of Present Illness Amrik Alexander is a 64 year old male with history of nonischemic cardiomyopathy, 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 He is presenting to the emergency room today with chief complaints of having increasing generalized anasarca. Patient states it has been hard for him to breathe. He typically does not wear oxygen but is currently requiring 3 L/min. He states that his symptoms have been progressing over the past several weeks. Denies any chest pain. He has been taking Lasix 40 mg at home but it does not appear to have helped. He is diagnosed to have nonischemic cardiomyopathy, in August of this year he had an angiogram which did not show any obstructive CAD. Patient has a history of A-fib, currently has an AICD in place. Rhythm is currently paced. Denies any other recent illness Review of Systems General: Reports: 10 or more systems reviewed and unremarkable except in HPI and below Const: Denies: fever(s), chills or body aches Eyes: Denies: change in vision, blurry vision or photophobia ENMT: Reports: hoarseness; Denies: throat pain, enlarged tonsils, odynophagia or nasal congestion Card: Denies: chest pain, palpitations, irregular heart rhythm, edema, swelling of feet/ankles, lightheadedness, pre-syncope, dyspnea on exertion or orthopnea Resp: Denies: dyspnea, productive cough, non-productive cough, wheezing, stridor, pain on inspiration, change in phlegm color, hemoptysis or chest congestion GI: Denies: abdominal pain, nausea, vomiting, hematemesis, coffee ground emesis, dysphagia, heartburn, diarrhea, constipation, GI cramping, change in stool character, hematochezia or melena : Denies: flank pain, dysuria, urinary frequency, urinary urgency, urinary hesitancy or hematuria Musc: Denies: neck pain, back pain, extremity pain, joint swelling, joint warmth or deformity Neuro: Denies: headache(s), numbness in extremities, weakness in extremities, sensory changes, difficulty walking, frequent falls, dizziness, vertigo, behavioral changes, Slurred speech present or seizure-like activity Psych: Denies: anxiety, depression, suicidal ideation or homicidal ideation Endo: Denies: polyuria, polydipsia, tired all the time, cold intolerance or hot flashes [place]/Lymph: Denies: easy bruising or easy bleeding Medications/Allergies Home Medications Medication Instructions Recorded Confirmed Last Taken Type nebulizer machine with tubing and #1 ea 09/09/22 10/08/24 Unknown Rx mask fluticasone propionate 50 2 spray intranasal DAILY PRN 08/17/23 10/08/24 Unknown History mcg/actuation nasal Allergy Symptoms spray,suspension (Flonase Allergy Relief) clopidogrel 75 mg tablet 75 mg PO DAILY #30 tabs 11/20/23 10/08/24 08/17/24 Rx magnesium L-lactate 84 mg 84 mg PO DAILY 03/08/24 10/08/24 05/29/24 History tablet,extended release CPAP (Standard Cpap) #1 ea 04/09/24 10/08/24 Unknown Rx spironolactone 25 mg tablet 25 mg PO DAILY #90 tabs 04/14/24 10/08/24 08/17/24 Rx amiodarone 400 mg tablet 400 mg PO DAILY #90 tabs 05/10/24 10/08/24 08/17/24 Rx carvedilol 12.5 mg tablet 12.5 mg PO BID #60 tabs 06/01/24 10/08/24 08/17/24 Rx albuterol sulfate 2.5 mg/3 mL 2.5 mg (3 mL) inhalation QID PRN 06/03/24 10/08/24 Unknown Rx (0.083 %) solution for nebulization shortness of breath or wheezing #180 mL albuterol sulfate 90 mcg/actuation 2 inh inhalation Q6H PRN Shortness 06/03/24 10/08/24 Unknown Rx aerosol inhaler Of Breath #8.5 grams furosemide 40 mg tablet (Lasix) 40 mg PO QAM #30 tabs 06/03/24 10/08/24 08/17/24 Rx insulin glargine 100 unit/mL (3 30 unit (0.3 mL) SUBCUT BEDTIME 06/28/24 10/08/24 Unknown Rx mL) subcutaneous pen (Lantus #15 mL Solostar U-100 Insulin) alcohol swabs 1 pad topical DIRECTED #200 ea 08/05/24 10/08/24 Unknown Rx blood sugar diagnostic (Blood #200 ea 08/05/24 10/08/24 Unknown Rx Glucose Test strips) blood-glucose meter #1 ea 08/05/24 10/08/24 Unknown Rx lancets #200 ea 08/05/24 10/08/24 Unknown Rx allopurinol 300 mg tablet 300 mg PO QAM 08/17/24 10/08/24 08/17/24 History levocetirizine 5 mg tablet 5 mg PO DAILY 08/17/24 10/08/24 Unknown History potassium citrate 10 mEq (1,080 20 meq PO BID 08/17/24 10/08/24 08/17/24 History mg) tablet,extended release rosuvastatin 40 mg tablet See Rx Instructions .Route 08/20/24 10/08/24 Unknown Rx .COMPLEX #30 ea pantoprazole 40 mg tablet,delayed See Rx Instructions .Route 08/23/24 10/08/24 Unknown Rx release .COMPLEX #60 tabs sertraline 100 mg tablet 100 mg PO QAM #30 tabs 08/23/24 10/08/24 Unknown Rx Farxiga 10 mg tablet See Rx Instructions .Route 08/30/24 10/08/24 Unknown Rx (dapagliflozin propanediol) .COMPLEX #90 tabs apixaban 2.5 mg tablet 2.5 mg PO BID 90 days #180 tabs 08/31/24 10/08/24 Unknown Rx budesonide-formoterol HFA 160 2 puff inhalation BID #10.2 grams 09/22/24 10/08/24 Unknown Rx mcg-4.5 mcg/actuation aerosol inhaler (Symbicort) nebulizer hosing and delivery #1 ea 09/22/24 10/08/24 Unknown Rx device ropinirole 0.5 mg tablet 0.5 mg PO .qhs #30 tabs 09/22/24 10/08/24 Unknown Rx Allergies Allergy/AdvReac Type Severity Reaction Status Date / Time isosorbide Allergy unknown Verified 10/07/24 17:23 Penicillins AdvReac rash Verified 10/07/24 17:23 PFSH Acute PFSH: Medical History COPD (chronic obstructive pulmonary disease) Cardiomyopathy Coronary artery disease Type 2 diabetes mellitus Cardiac resynchronization therapy defibrillator ([employer]LE[employer]-D) in place [employer] Dr. [place], 07/11/2020 Mixed hyperlipidemia Hypertension CVA (cerebral vascular accident) PVCs (premature ventricular contractions) Hypomagnesemia Infarction of spleen Nausea & vomiting Gastroparesis Major depressive disorder, recurrent episode, mild degree Major depressive disorder in partial remission Allergic rhinitis Bipolar II disorder Diabetes Non-ST elevation CT (NSTEMI) Uses bilevel positive airway pressure (BPAP) ventilation at home 12/8cm Dysarthria Unstable angina Nonischemic congestive cardiomyopathy Chronic low back pain Elevated blood uric acid level History of sleep study 2017 at [facility]: Optimal pressure settings with BiPAP found to be 12/8 cm COVID-19 Wound infection following procedure infection with defibrillator lead revision, removed , scarring left subclavian area from this GERD (gastroesophageal reflux disease) ALBERTO (obstructive sleep apnea) C. difficile diarrhea Cataracts, bilateral CHF (congestive heart failure) Urolithiasis Multi stone former, calcium oxalate mono and dihydrate. Also calcium phosphate. Multiple interventions including endoscopy with laser lithotripsy and ESWL. Metabolic treatment with potassium citrate Hemorrhoids Psychiatric care Right ureteral calculus Osteoarthritis of hands, bilateral Pacemaker Surgical History S/P epidural steroid injection Status post hemorrhoidectomy Hx of umbilical hernia repair Hx of lithotripsy History of urethral stent H/O esophagogastroduodenoscopy (02/27/21) gastritis, duodenitis History of colonoscopy (02/27/21) descending colon polyp, hemorrhoids History of carpal tunnel release of both wrists History of permanent cardiac pacemaker placement Hx of cataract surgery Hx of shoulder surgery Family History Grandfather CAD (coronary artery disease) Brother Cancer colon cancer Diabetes Mother Diabetes Father No problems noted. Other Hypertension Rheumatoid arthritis Social History Smoking and tobacco/nicotine status: never used tobacco/nicotine Second hand smoke exposure: No Alcohol intake: former Year of sobriety/quit date alcohol: 1997 Substance/Drug Use: former Date of last use: 1997 Caregiver/support person: Yes Lives independently: Yes Household members: spouse Marital status: service: No Current occupational status: disabled Current gender identity: Male Special fernando needs: No Agree to transfusion: Yes Vitals/I&O/Wt Last Vital Signs Temp 97.9 F 10/07/24 17:21 Pulse 70 10/07/24 22:52 Resp 17 10/07/24 22:52 BP 108/78 10/07/24 22:52 Pulse Ox 95 10/07/24 22:52 O2 Del Method Room Air 10/07/24 22:52 Weight last 48 hrs Weight 112.945 kg Weight 112.945 kg Physical Exam Narrative: General: No acute distress, AO x3 HEENT: PERRLA, pupils bilaterally equal and reactive, pallors not present Chest: Crackles bilaterally CVS: S1-S2 regular, no murmurs, no tachycardia, no gallops, no rubs Abdomen: Soft, nontender, no organomegaly, bowel sounds present Neuro: No focal deficits, no facial deformity, AO x3, power 5/5 in all limbs Extremities: Bilateral lower extremity pitting edema Urinary Catheter Management: Arredondo: Cath Placed During This Visit: yes Urinary Catheter Date of Insertion: 10/07/24 Urinary Catheter Time of Insertion: 20:00 Data 10/08/24 04:16 10/08/24 04:16 A&P Assessment and plan (1) Acute exacerbation of CHF (congestive heart failure): Acute on chronic systolic and diastolic CHF exacerbation. Last known LVEF of 28% from August 2024. There is global left ventricular hypokinesis. Grade 4 diastolic dysfunction. Severely elevated filling pressures were noted on the last echocardiogram Patient reports being compliant with all his medications but has been experiencing increasing anasarca. Exam shows bilateral lower extremity pitting edema, Rales on exam, elevated BNP. Admit to CSU Start IV diuresis with Lasix 40 mg IV every 12 hours. He has received 80 mg IV push in the emergency room. Continue home doses of amiodarone, Plavix and apixaban. Holding Aldactone due to soft blood pressures. Currently systolic blood pressure ranging between 94-1 25. Closely monitor renal function and urine output. Arredondo catheter has been placed for strict I&O measurement. Plan DVT prophylaxis: Eliquis will suffice Full code Attestations Medical Necessity Statement*: Greater than 2 midnight stay is anticipated Coding Level of Care Code Acute Code for Chg Fwd High MDM includes number and complexity of problems actively addressed during encounter, amount and/or complexity of data reviewed/ordered and described risk of complication, morbidity or mortality of management as documented Diagnoses Acute exacerbation of CHF (congestive heart failure) I50.9
[2024-10-07 23:26] LABS: Reflex Lactate Order REFLEX LACTIC ORDERD
[2024-10-08] VITALS (15 sets, daily range): BP systolic 101–110; BP diastolic 56–80; PULSE 65–73; RESP 17–28; TEMP 35.6–37.3; O2SAT 93–100; BMI 42.0
[2024-10-08] LABS: Anion Gap 17.5 (5-19); Blood Urea Nitrogen 33 mg/dL (8-23); Calcium 8.7 mg/dL (8.5-10.5); Carbon Dioxide 25 mmol/L (22-29); Chloride 98 mmol/L (98-107); Creatinine Clr Calc Pharmacy 57.7586; Glomerular Filtration Rate 47.1 mL/min (90-130); Glucose 122 mg/dL (65-115); Osmolality Calculated 291 mOsm/kg (285-295); Potassium 4.5 mmol/L (3.5-5.1); Sodium 136 mmol/L (136-145)
[2024-10-08 00:08] LABS: Glucose Point of Care 132 mg/dL (70-110)
[2024-10-08] MEDS: insulin glargine 100 units/1 mL 30 UNIT SUBCUT ×2 (00:09→20:55)
[2024-10-08] MEDS: ropinirole 0.25 mg Tablet 0.5 MG PO ×2 (00:09→20:54)
[2024-10-08] MEDS: atorvastatin 40 mg Tablet 80 MG PO ×2 (00:09→20:54)
[2024-10-08 01:03] LABS: Lactic Acid level (Lactate) 1.6 mmol/L (0.5-2.2)
[2024-10-08 01:22] LABS: Iron 13 ug/dL (59-158)
[2024-10-08 01:28] LABS: Procalcitonin 0.28 ng/mL (0-0.5)
[2024-10-08 01:50] LABS: Percent Saturation 3.4 % (20-50); Total Iron Binding Capacity 377 mcg/dl; Unsaturated Iron Binding 364 ug/dL (112-347)
[2024-10-08 05:06] LABS: Basophils % 0.4 %; Eosinophils # 0.1 10^3/uL (0.0-0.8); Lymphocytes # 1.9 10^3/uL (0.8-4.8); Lymphocytes % 19.7 %; Mean Corpuscular HGB Conc 31.5 g/dL (30-55); Mean Corpuscular Hemoglobin 26.1 pg (27-33); Mean Corpuscular Volume 82.9 fl (82-101); Mean Platelet Volume 11.7 fL (7.4-10.4); Monocytes # 0.9 10^3/uL (0.2-0.9); Monocytes % 9.4 %; Neutrophils # 6.51 10^3/uL (1.8-7.7); Nucleated Red Blood Cells % 0 %; Platelet Count 276 10^3/cmm (157-399); Red Cell Distribution Width 16.8 % (12.1-15.1); White Blood Count 9.44 10^3/uL (3.29-11.43)
[2024-10-08] MEDS: sertraline 100 mg Tablet PO (05:24)
[2024-10-08 05:29] LABS: Alanine Aminotransferase 390 U/L (0-41); Albumin Level 3.2 g/dL (3.5-5.2); Alkaline Phosphatase 308 U/L (40-130); Aspartate Amino Transferase 501 U/L (0-40); Blood Urea Nitrogen 32 mg/dL (8-23); Calcium 8.7 mg/dL (8.5-10.5); Carbon Dioxide 28 mmol/L (22-29); Chloride 98 mmol/L (98-107); Creatinine Clr Calc Pharmacy 62.4313; Globulin 2.4 g/dL (1.3-4.6); Glucose 97 mg/dL (65-115); Magnesium 2.1 mg/dL (1.7-2.3); Osmolality Calculated 291 mOsm/kg (285-295); Phosphorus 3.5 mg/dL (2.5-4.5); Sodium 137 mmol/L (136-145); Total Bilirubin 1.6 mg/dL (0.15-1.2); Total Protein 5.6 g/dL (6.6-8.7)
[2024-10-08 05:32] LABS: Procalcitonin 0.23 ng/mL (0-0.5)
[2024-10-08] MEDS: FUROsemide 10 mg/mL SDV 4mL 40 MG IVP (06:21)
[2024-10-08 06:23] LABS: Glucose Point of Care 114 mg/dL (70-110)
[2024-10-08] MEDS: apixaban 5 mg Tablet 2.5 MG PO ×2 (08:35→17:40)
[2024-10-08] MEDS: clopidogrel 75 mg Tablet PO (08:35)
[2024-10-08] MEDS: amiodarone 200 mg Tablet 400 MG PO (08:35)
[2024-10-08] MEDS: budesonide 0.5 mg/2 mL Neb INHALATION ×2 (08:42→20:44)
[2024-10-08] MEDS: ipratropium-albuterol 3 mL Neb INHALATION (08:42)
[2024-10-08 11:32] LABS: Glucose Point of Care 371 mg/dL (70-110)
[2024-10-08] MEDS: insulin lispro 100 unit/1 mL SUBCUT ×2 (12:53→20:55)
--- NOTE | 2024-10-08 14:15 | P.PN_ITS ---
Vitals/I&O/Wt Last Vital Signs Temp 97.7 F 10/08/24 12:00 Pulse 70 10/08/24 12:00 Resp 26 H 10/08/24 12:00 BP 106/64 10/08/24 12:00 Pulse Ox 93 10/08/24 12:00 O2 Del Method Room Air 10/08/24 12:00 10/07/24 10/08/24 10/08/24 22:59 06:59 14:59 Intake Total 0 / 0 480 / 480 Output Total 2850 / 2850 1600 / 1600 Balance -2850 / -2850 -1120 / -1120 Weight last 48 hrs Weight 114.759 kg Weight 112.945 kg Weight 112.945 kg Physical Exam 2 Narrative: General: No acute distress, AO x3 HEENT: PERRLA, pupils bilaterally equal and reactive, pallors not present Chest: Crackles bilaterally CVS: S1-S2 regular, no murmurs, no tachycardia, no gallops, no rubs Abdomen: Soft, nontender, no organomegaly, bowel sounds present Neuro: No focal deficits, no facial deformity, AO x3, power 5/5 in all limbs Extremities: Bilateral lower extremity pitting edema Urinary Catheter Management: Arredondo: Cath Placed During This Visit: yes Reason for Continuing Indwelling Catheter: Acute Urinary Retention or Obstruction Urinary Catheter Date of Insertion: 10/07/24 Urinary Catheter Time of Insertion: 20:00 Data 10/08/24 04:16 10/08/24 04:16 A&P Assessment and plan (1) Acute exacerbation of CHF (congestive heart failure): Acute on chronic systolic and diastolic CHF exacerbation. Last known LVEF of 28% from August 2024. There is global left ventricular hypokinesis. Grade 4 diastolic dysfunction. Severely elevated filling pressures were noted on the last echocardiogram Patient reports being compliant with all his medications but has been experiencing increasing anasarca. Fluid restriction 15 cc Strict input output charting, daily weights. Arredondo catheterization. Continue with IV Lasix 40 mg twice daily. Monitor electrolytes. Repeat BMP in afternoon. Holding off on home dose of Aldactone. (2) Congestive heart failure: Qualifiers: Heart failure type: combined systolic and diastolic Heart failure chronicity: acute on chronic Qualified Code(s): I50.43 - Acute on chronic combined systolic (congestive) and diastolic (congestive) heart failure (3) Cardiomyopathy: Qualifiers: Cardiomyopathy type: dilated Qualified Code(s): I42.0 - Dilated cardiomyopathy (4) Type 2 diabetes mellitus: A1c of 8. Continue with insulin sliding scale. Qualifiers: Diabetes mellitus complication status: with other specified complication Diabetes mellitus intermediate card tender insulin use: without snf use Qualified Code(s): E11.69 - Type 2 diabetes mellitus with other specified complication (5) Anasarca: Plan Hypertension: Goal blood pressure less than 140/90 mmHg. Takes Coreg, spironolactone at home. Holding off on medications for now for maximum diuretic effect. 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 Change dose to 200 mg daily. Continue Eliquis 2.5 mg twice daily. History of endocarditis: Check blood cultures. DVT prophylaxis: Eliquis will suffice Full code Attestations 2 Medical Necessity Statement*: Requires further hospitalization for management of anasarca in setting of acute on chronic systolic congestive heart failure this patient requires further IV diuresis, monitor electrolytes. Diagnoses Acute exacerbation of CHF (congestive heart failure) I50.9 Acute on chronic combined systolic and diastolic congestive heart failure I50.43 Heart failure type: combined systolic and diastolic Heart failure chronicity: acute on chronic Dilated cardiomyopathy I42.0 Cardiomyopathy type: dilated Type 2 diabetes mellitus E11.69 Diabetes mellitus complication status: with other specified complication Diabetes mellitus intermediate card tender insulin use: without intermediate card tender use Anasarca R60.1
[2024-10-08 14:51] LABS: Anion Gap 13.5 (5-19); Blood Urea Nitrogen 30 mg/dL (8-23); Calcium 8.6 mg/dL (8.5-10.5); Carbon Dioxide 25 mmol/L (22-29); Chloride 94 mmol/L (98-107); Creatinine Clr Calc Pharmacy 62.4313; Glucose 135 mg/dL (65-115); Osmolality Calculated 276 mOsm/kg (285-295); Potassium 3.5 mmol/L (3.5-5.1); Sodium 129 mmol/L (136-145)
[2024-10-08 17:16] LABS: Glucose Point of Care 115 mg/dL (70-110)
[2024-10-08 20:43] LABS: Glucose Point of Care 280 mg/dL (70-110)
[2024-10-09] VITALS (8 sets, daily range): BP systolic 90–120; BP diastolic 52–85; PULSE 66–70; RESP 16–20; TEMP 36.4–37; O2SAT 92–100
[2024-10-09 04:29] LABS: Basophils % 0.3 %; Eosinophils # 0.1 10^3/uL (0.0-0.8); Eosinophils % 1.1 %; Hematocrit 34.6 % (37-53); Lymphocytes # 1.7 10^3/uL (0.8-4.8); Lymphocytes % 16.9 %; Mean Corpuscular HGB Conc 31.2 g/dL (30-55); Mean Corpuscular Hemoglobin 26.3 pg (27-33); Mean Corpuscular Volume 84.4 fl (82-101); Mean Platelet Volume 11.4 fL (7.4-10.4); Monocytes # 0.8 10^3/uL (0.2-0.9); Monocytes % 8.1 %; Nucleated Red Blood Cells % 0.2 %; Platelet Count 297 10^3/cmm (157-399); Red Cell Distribution Width 16.9 % (12.1-15.1); White Blood Count 10.27 10^3/uL (3.29-11.43)
[2024-10-09] MEDS: sertraline 100 mg Tablet PO (04:52)
[2024-10-09] MEDS: FUROsemide 10 mg/mL SDV 4mL 40 MG IVP (04:52)
[2024-10-09 04:55] LABS: Alanine Aminotransferase 314 U/L (0-41); Albumin Level 3.3 g/dL (3.5-5.2); Alkaline Phosphatase 307 U/L (40-130); Anion Gap 14.7 (5-19); Aspartate Amino Transferase 276 U/L (0-40); Blood Urea Nitrogen 32 mg/dL (8-23); Calcium 8.6 mg/dL (8.5-10.5); Carbon Dioxide 26 mmol/L (22-29); Chloride 95 mmol/L (98-107); Creatinine Clr Calc Pharmacy 62.4313; Globulin 2.5 g/dL (1.3-4.6); Glucose 85 mg/dL (65-115); Osmolality Calculated 280 mOsm/kg (285-295); Potassium 3.7 mmol/L (3.5-5.1); Sodium 132 mmol/L (136-145); Total Bilirubin 1.2 mg/dL (0.15-1.2); Total Protein 5.8 g/dL (6.6-8.7)
[2024-10-09 06:32] LABS: Glucose Point of Care 120 mg/dL (70-110)
[2024-10-09] MEDS: budesonide 0.5 mg/2 mL Neb INHALATION (07:54)
[2024-10-09] MEDS: apixaban 5 mg Tablet 2.5 MG PO (09:17)
[2024-10-09] MEDS: clopidogrel 75 mg Tablet PO (09:18)
[2024-10-09] MEDS: amiodarone 200 mg Tablet PO (09:18)
[2024-10-09 11:55] LABS: Glucose Point of Care 122 mg/dL (70-110)
[2024-10-09] MEDS: cefdinir 300 MG CAPSULE PO (12:55)
--- NOTE | 2024-10-09 13:00 | PC.NURSE ---
mckeon removed at 1300
[2024-10-09 14:36] LABS: Alanine Aminotransferase 276 U/L (0-41); Albumin Level 3.2 g/dL (3.5-5.2); Alkaline Phosphatase 299 U/L (40-130); Anion Gap 14.5 (5-19); Aspartate Amino Transferase 204 U/L (0-40); Blood Urea Nitrogen 31 mg/dL (8-23); Calcium 8.4 mg/dL (8.5-10.5); Carbon Dioxide 27 mmol/L (22-29); Chloride 92 mmol/L (98-107); Creatinine Clr Calc Pharmacy 62.4313; Globulin 2.6 g/dL (1.3-4.6); Glucose 170 mg/dL (65-115); Osmolality Calculated 281 mOsm/kg (285-295); Potassium 3.5 mmol/L (3.5-5.1); Sodium 130 mmol/L (136-145); Total Bilirubin 1.2 mg/dL (0.15-1.2); Total Protein 5.8 g/dL (6.6-8.7)
--- NOTE | 2024-10-09 15:42 | P.DS_ITS ---
Discharge Providers Date of Admission: 10/07/24 20:10 Date of Discharge: October 09, 2024 Attending Provider at Admission: Tony aHll MD Attending Provider at Discharge: Tony Hall MD Primary Care Provider: ANDRES Pettit Diagnoses at Discharge Discharge Diagnosis (1) Acute exacerbation of CHF (congestive heart failure): Status: Inactive (2) Congestive heart failure: Status: Acute Qualifiers: Heart failure chronicity: acute on chronic Heart failure type: combined systolic and diastolic Qualified Code(s): I50.43 - Acute on chronic combined systolic (congestive) and diastolic (congestive) heart failure (3) Cardiomyopathy: Status: Acute Qualifiers: Cardiomyopathy type: dilated Qualified Code(s): I42.0 - Dilated cardiomyopathy (4) Type 2 diabetes mellitus: Status: Acute Qualifiers: Diabetes mellitus complication status: with other specified complication Diabetes mellitus retirement insulin use: without terminal supervisor use Qualified Code(s): E11.69 - Type 2 diabetes mellitus with other specified complication (5) Anasarca: Status: Acute Reason for Visit Reason for Visit: Cant Pee\Bloated Brief History: History as per HPI: Amrik Alexander is a 64 year old male with history of nonischemic cardiomyopathy, 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 He is presenting to the emergency room today with chief complaints of having increasing generalized anasarca. Patient states it has been hard for him to breathe. He typically does not wear oxygen but is currently requiring 3 L/min. He states that his symptoms have been progressing over the past several weeks. Denies any chest pain. He has been taking Lasix 40 mg at home but it does not appear to have helped. He is diagnosed to have nonischemic cardiomyopathy, in August of this year he had an angiogram which did not show any obstructive CAD. Patient has a history of A-fib, currently has an AICD in place. Rhythm is currently paced. Denies any other recent illness Hospital Course Hospital Course Patient was admitted to the hospital for further evaluation management of fluid overload in setting of acute on chronic systolic congestive heart failure. He was started on aggressive IV diuresis when monitoring his renal functions. Overall patient is around 6.5 L negative. Patient would benefit from further IV diuresis while monitoring his renal function though he was adamant of being discharged. He has been discharged in hemodynamically stable condition on oral Bumex 1 mg twice daily. His home dose of Coreg has been changed to metoprolol succinate given his soft blood pressures. He is counseled in detail about lifestyle modification with congestive heart failure, fluid restriction and salt restriction along with daily weight checks. He has been discharged in medically stable condition advised to maintain blood pressure diary and following up with primary care provider and nurse practitioner cardiology in the next 2 weeks. Physical Exam Narrative: General: No acute distress, AO x3 HEENT: PERRLA, pupils bilaterally equal and reactive, pallors not present Chest: Crackles bilaterally CVS: S1-S2 regular, no murmurs, no tachycardia, no gallops, no rubs Abdomen: Soft, nontender, no organomegaly, bowel sounds present Neuro: No focal deficits, no facial deformity, AO x3, power 5/5 in all limbs Extremities: Bilateral lower extremity pitting edema Urinary Catheter Management: Arredondo: Cath Placed During This Visit: yes Reason for Continuing Indwelling Catheter: Not indwelling catheter Urinary Catheter Date of Insertion: 10/07/24 Urinary Catheter Time of Insertion: 20:00 Discharge Data Studies Completed and Pending Completed Studies During Hospitalization Category Date Time Status XR chest 1V portable [id number] Stat Exams 10/07/24 17:25 Completed Pending at discharge Category Date Time Status BMP [Basic Metabolic Panel] Routine Lab 10/09/24 15:20 Received Blood Culture Stat Lab 10/08/24 16:28 Results Complete Blood Count w/Auto AM LABS Lab 10/10/24 04:00 Ordered Comprehensive Metabolic Panel AM LABS Lab 10/10/24 04:00 Ordered MAG [Magnesium] AM LABS Lab 10/10/24 04:00 Ordered MAG [Magnesium] AM LABS Lab 10/11/24 04:00 Ordered MAG [Magnesium] AM LABS Lab 10/12/24 04:00 Ordered Radiology Impressions Chest X-Ray 10/07/24 17:25 IMPRESSION: No new/acute findings. Unchanged cardiomegaly. Laboratory Results WBC 10.27 10^3/uL (3.29-11.43) 10/09/24 03:34 RBC 4.10 10^6/uL (3.85-5.65) 10/09/24 03:34 Hgb 10.80 g/dL (11.27-16.99) L 10/09/24 03:34 Hct 34.6 % (37-53) L 10/09/24 03:34 MCV 84.4 fl (82-101) 10/09/24 03:34 MCH 26.3 pg (27-33) L 10/09/24 03:34 MCHC 31.2 g/dL (30-55) 10/09/24 03:34 RDW 16.9 % (12.1-15.1) H 10/09/24 03:34 Plt Count 297 10^3/cmm (157-399) 10/09/24 03:34 MPV 11.4 fL (7.4-10.4) H 10/09/24 03:34 Neut % (Auto) 73.0 % 10/09/24 03:34 Lymph % (Auto) 16.9 % 10/09/24 03:34 Calloway % (Auto) 8.1 % 10/09/24 03:34 Eos % (Auto) 1.1 % 10/09/24 03:34 Baso % (Auto) 0.3 % 10/09/24 03:34 Neut # (Auto) 7.50 10^3/uL (1.8-7.7) 10/09/24 03:34 Lymph # (Auto) 1.7 10^3/uL (0.8-4.8) 10/09/24 03:34 Calloway # (Auto) 0.8 10^3/uL (0.2-0.9) 10/09/24 03:34 Eos # (Auto) 0.1 10^3/uL (0.0-0.8) 10/09/24 03:34 Baso # (Auto) 0.0 10^3/uL (0.0-0.1) 10/09/24 03:34 Nucleated RBC % (auto) 0.2 % 10/09/24 03:34 Nucleated RBCs # 0.0 /100WBC 10/09/24 03:34 D-Dimer 2.87 ug/mLFEU (0-0.59) H 10/07/24 18:55 Sodium 130 mmol/L (136-145) L 10/09/24 14:03 Potassium 3.5 mmol/L (3.5-5.1) 10/09/24 14:03 Chloride 92 mmol/L (98-107) L 10/09/24 14:03 Carbon Dioxide 27 mmol/L (22-29) 10/09/24 14:03 Anion Gap 14.5 (5-19) 10/09/24 14:03 BUN 31 mg/dL (8-23) H 10/09/24 14:03 Creatinine 1.4 mg/dL (0.7-1.2) H 10/09/24 14:03 GFR Calculation 51.0 mL/min (90-130) L 10/09/24 14:03 Glucose 170 mg/dL (65-115) H 10/09/24 14:03 POC Glucose 122 mg/dL (70-110) H 10/09/24 11:41 Calculated Osmolality 281 mOsm/kg (285-295) L 10/09/24 14:03 Lactic Acid 2.8 mmol/L (0.5-2.2) H 10/07/24 18:55 Lactic Acid (Sepsis) 1.6 mmol/L (0.5-2.2) 10/08/24 00:38 Calcium 8.4 mg/dL (8.5-10.5) L 10/09/24 14:03 Phosphorus 3.5 mg/dL (2.5-4.5) 10/08/24 04:16 Magnesium 2.1 mg/dL (1.7-2.3) 10/08/24 04:16 Iron 13 ug/dL (59-158) L 10/07/24 18:55 TIBC 377 mcg/dl 10/07/24 18:55 % Saturation 3.4 % (20-50) L 10/07/24 18:55 Unsat Iron Binding 364 ug/dL (112-347) H 10/07/24 18:55 Total Bilirubin 1.2 mg/dL (0.15-1.2) 10/09/24 14:03 AST 204 U/L (0-40) H 10/09/24 14:03 ALT 276 U/L (0-41) H 10/09/24 14:03 Alkaline Phosphatase 299 U/L (40-130) H 10/09/24 14:03 NT-Pro-B Natriuret Pep 3124 pg/mL (0-125) H 10/07/24 18:55 Total Protein 5.8 g/dL (6.6-8.7) L 10/09/24 14:03 Albumin 3.2 g/dL (3.5-5.2) L 10/09/24 14:03 Globulin 2.6 g/dL (1.3-4.6) 10/09/24 14:03 Procalcitonin 0.23 ng/mL (0-0.5) 10/08/24 04:16 Urine Color Yellow (Yellow) 10/07/24 19:25 Urine Appearance Clear (CLEAR) 10/07/24 19:25 Urine pH 6.5 (5-7) 10/07/24 19:25 Ur Specific [place] 1.017 (1.005-1.030) 10/07/24 19:25 Urine Protein Negative (Negative) 10/07/24 19:25 Urine Glucose (UA) 3+ (Normal) H 10/07/24 19:25 Urine Ketones Negative (Negative) 10/07/24 19:25 Urine Blood Non-haemolysed trace (Negative) 10/07/24 19:25 Urine Nitrate Negative (Negative) 10/07/24 19:25 Urine Bilirubin Negative (Negative) 10/07/24 19:25 Urine Urobilinogen 2.0 mg/dL (Negative) H 10/07/24 19:25 Ur Leukocyte Esterase Negative (Negative) 10/07/24 19:25 Urine RBC 6-10 /hpf (0-2) 10/07/24 19:25 Urine WBC 0-5 /hpf (0-5) 10/07/24 19:25 Ur Squamous Epith Cells 0-5 /hpf (0-5) 10/07/24 19:25 Amorphous Sediment Not Reportable 10/07/24 19:25 Urine Bacteria None seen /hpf (NONE) 10/07/24 19:25 Hyaline Casts 0.81 /lpf 10/07/24 19:25 Vitals Last Vital Signs Temp 97.8 F 10/09/24 11:42 Pulse 70 10/09/24 14:00 Resp 20 H 10/09/24 11:42 BP 90/52 10/09/24 11:42 Pulse Ox 96 10/09/24 11:42 O2 Del Method Room Air 10/09/24 11:42 FiO2 21 10/08/24 20:46 Discharge Plan Discharge Patient Disposition: Home Condition: Stable Prescriptions: New amiodarone [Pacerone] 200 mg Tablet 200 mg PO DAILY Qty: 60 3RF bumetanide 1 mg tablet 1 mg PO BID Qty: 60 0RF metoprolol succinate 25 mg tablet extended release 24 hr 25 mg PO DAILY Qty: 30 0RF Continued spironolactone 25 mg tablet 25 mg PO DAILY Qty: 90 1RF Hold Instructions: Resume on 08/21/24. albuterol sulfate 2.5 mg /3 mL (0.083 %) solution for nebulization 2.5 mg inhalation QID PRN (Reason: shortness of breath or wheezing) Qty: 180 5RF albuterol sulfate 90 mcg/actuation HFA aerosol inhaler 2 inh INHALATION Q6H PRN (Reason: Shortness Of Breath) Qty: 8.5 2RF (DME) blood-glucose meter Misc See Rx Instructions .MEDSUPPLY Qty: 1 0RF Rx Instructions: Use as directed for checking blood sugar twice daily (DME) Blood Glucose Test Strip See Rx Instructions .MEDSUPPLY Qty: 200 12RF Rx Instructions: Use as directed with glucometer to check blood sugar twice daily (DME) lancets Misc See Rx Instructions .MEDSUPPLY Qty: 200 12RF Rx Instructions: Use as directed to prick skin for blood sugar checks twice daily alcohol swabs Pads, Medicated 1 pad topical DIRECTED Qty: 200 12RF Rx Instructions: Use as directed to clean skin prior to finger stick or medication injection (DME) nebulizer machine with tubing and mask See Rx Instructions .Route .MEDSUPPLY Qty: 1 0RF Rx Instructions: As directed apixaban 2.5 mg tablet 2.5 mg PO BID 90 Days Qty: 180 1RF ropinirole 0.5 mg tablet 0.5 mg PO .qhs Qty: 30 0RF budesonide-formoterol [Symbicort] 160-4.5 mcg/actuation HFA aerosol inhaler 2 puff inhalation BID Qty: 10.2 0RF (DME) nebulizer hosing and delivery device See Rx Instructions .Route .MEDSUPPLY Qty: 1 12RF Rx Instructions: As directed (DME) Standard Cpap Device See Rx Instructions .Route Qty: 1 0RF Rx Instructions: As directed WITH SUPPLIES insulin glargine [Lantus Solostar U-100 Insulin] 100 unit/mL (3 mL) insulin pen 30 unit SUBCUT BEDTIME Qty: 15 2RF rosuvastatin 40 mg tablet See Rx Instructions .ROUTE .COMPLEX Qty: 30 0RF Dose Instruction: TAKE 1 TABLET BY MOUTH AT BEDTIME Rx Instructions: TAKE 1 TABLET BY MOUTH AT BEDTIME sertraline 100 mg tablet 100 mg PO QAM Qty: 30 2RF pantoprazole 40 mg tablet,delayed release (DR/EC) See Rx Instructions .ROUTE .COMPLEX Qty: 60 0RF Dose Instruction: Take 1 tablet by mouth twice daily Rx Instructions: Take 1 tablet by mouth twice daily dapagliflozin propanediol [Farxiga] 10 mg tablet See Rx Instructions .ROUTE .COMPLEX Qty: 90 1RF Dose Instruction: Take 1 tablet by mouth once daily Rx Instructions: Take 1 tablet by mouth once daily potassium citrate 10 mEq (1,080 mg) tablet extended release 20 meq PO BID allopurinol 300 mg tablet 300 mg PO QAM levocetirizine 5 mg tablet 5 mg PO DAILY fluticasone propionate [Flonase Allergy Relief] 50 mcg/actuation spray,darlin pension 2 spray intranasal DAILY PRN (Reason: Allergy Symptoms) Rx Instructions: administer into each nostril clopidogrel 75 mg Tablet 75 mg PO DAILY Qty: 30 2RF magnesium L-lactate 84 mg Tablet Extended Release 84 mg PO DAILY Discontinued amiodarone 400 mg tablet 400 mg PO DAILY Qty: 90 1RF Lasix 40 mg tablet 40 mg PO QAM Qty: 30 5RF carvedilol 12.5 mg tablet 12.5 mg PO BID Qty: 60 0RF Discharge Orders: Discharge Order (Routine); Ordered 10/09/24 Ordered By: Tony Hall Referrals: Lucrecia Blandon FNP [Primary Care Provider] - 2 weeks Gregoria Cottrell FNP [Nurse Practitioner] - 2 weeks Discharge Diet: Cardiac Discharge Activity: Resume usual activity and Increase activity as tolerated Patient Instructions: Opioid Safety Activity Restrictions/Additional Instructions: Restrict fluid intake to less than 1500 cc, salt intake to less than 2 g daily. Advised to check his weight daily at home. Is advised that weight today would be the dry weight and if body weight increases by around 5 pounds, patient is to take an extra dose of Bumex daily till body weight comes down to weight today. If not able to come down to dry body weight in 1 week, then is to call cardiology office for further recommendations. Patient was counseled in detail to take medications regularly as prescribed. Check your blood pressure daily at home and maintain a blood pressure diary. Your goal blood pressures less than 140/90 mmHg and more than 100/60 mmHg. Hold off on taking your home dose of Coreg for now. Follow-up with a primary care provider within next 2 weeks with a blood pressure diary for further adjustment of antihypertensive. Follow-up with nurse practitioner from cardiology team within next 2 weeks. Discharge Attestations Time Spent in Discharge Care*: greater than 30 min Specific Discharge Activities: educating patient, educating and/or supporting family/caregiver, discussing with pcp/other providers, discussing with case loader operator/social workers/dc planners, documenting/other paperwork and evaluating patient/reviewing data Status at Discharge: Cognitive status at discharge: cognitively intact , Behavioral status at discharge: cooperative , Functional status at discharge: independent ambulation , Overall status at discharge: patient is progressing back to baseline Quality Metrics Clinical Quality Measures [ No reported AMI, CVA or VTE this stay] Coding Level of Care Code 24496 Total time (in minutes) for Discharge: 60 Diagnoses Acute exacerbation of CHF (congestive heart failure) I50.9 Acute on chronic combined systolic and diastolic congestive heart failure I50.43 Heart failure chronicity: acute on chronic Heart failure type: combined systolic and diastolic Dilated cardiomyopathy I42.0 Cardiomyopathy type: dilated Type 2 diabetes mellitus E11.69 Diabetes mellitus complication status: with other specified complication Diabetes mellitus retirement insulin use: without terminal supervisor use Aram R60.1
[2024-10-09 16:01] LABS: Anion Gap 14.6 (5-19); Blood Urea Nitrogen 33 mg/dL (8-23); Calcium 8.4 mg/dL (8.5-10.5); Carbon Dioxide 26 mmol/L (22-29); Chloride 95 mmol/L (98-107); Creatinine Clr Calc Pharmacy 62.4313; Glucose 173 mg/dL (65-115); Osmolality Calculated 285 mOsm/kg (285-295); Potassium 3.6 mmol/L (3.5-5.1); Sodium 132 mmol/L (136-145)
== END 2024-10-09 16:34 | disposition home or self-care (01) ==
LOC: ER 20:07 → CSU 21:37
PROVIDERS: Emergency Medicine; Student in an Organized Health Care Education/Training Program; Admitting Provider Student in an Organized Health Care Education/Training Program; Emergency Provider Emergency Medicine; PCP Nurse Practitioner Family; Visit Provider Student in an Organized Health Care Education/Training Program
DX: I50.43 Acute on chronic combined systolic (congestive) and diastolic (congestive) heart failure (principal); I42.0 Dilated cardiomyopathy; R60.1 Generalized edema; I69.851 Hemiplegia and hemiparesis following other cerebrovascular disease affecting right dominant side; J44.9 Chronic obstructive pulmonary disease, unspecified; I25.10 Atherosclerotic heart disease of native coronary artery without angina pectoris; E78.2 Mixed hyperlipidemia; E11.9 Type 2 diabetes mellitus without complications; I25.2 Old myocardial infarction; K21.9 Gastro-esophageal reflux disease without esophagitis; Z95.0 Presence of cardiac pacemaker
CPT/HCPCS: 36415; 36416; 51702; 71045; 80048; 80053; 81001; 82962; 83540; 83550; 83605; 83735; 83880; 84100; 84145; 85025; 85378; 87040; 94640; 94660; 94664; 96372; 96374; 96376; 99285; G0378; J1815; J1940; J7626

== ENCOUNTER 2024-10-11 07:11 | Outpatient (CLI) | payer MEDICAID, SELFPAY ==
[2024-06-22 09:22] VITALS: BP 110/74; BMI 36.6
[2024-10-11 07:43] VITALS: PULSE 75
[2024-10-11 07:49] VITALS: PULSE 71; RESP 18; O2SAT 95
[2024-10-11] MEDS: albuterol 2.5 mg/3 mL Neb INHALATION (07:49)
== END 2024-10-11 07:12 | disposition home or self-care (01) ==
LOC: RT 07:14
PROVIDERS: PCP Nurse Practitioner Family; Visit Provider Nurse Practitioner Family
DX: R06.02 Shortness of breath (principal); R94.2 Abnormal results of pulmonary function studies
CPT/HCPCS: 94060; 94618; 94726; 94729; J7613

== ENCOUNTER → 2024-10-14 12:00 | Outpatient (BNVA) | payer MEDICAID, SELFPAY ==
[2024-06-22 09:22] VITALS: BP 110/74; BMI 36.6
== END ==
PROVIDERS: PCP Nurse Practitioner Family; Visit Provider Nurse Practitioner Family
DX: I50.43 Acute on chronic combined systolic (congestive) and diastolic (congestive) heart failure (principal)
CPT/HCPCS: 80053; 81000; 81003; 85025; 87077; 87086; 87184

== ENCOUNTER → 2024-11-05 08:24 | Outpatient (BNVA) | payer MEDICAID, SELFPAY ==
[2024-06-22 09:22] VITALS: BP 110/74; BMI 36.6
== END ==
PROVIDERS: PCP Nurse Practitioner Family; Visit Provider Nurse Practitioner Family
DX: R79.89 Other specified abnormal findings of blood chemistry (principal)
CPT/HCPCS: 80053

== ENCOUNTER → 2024-12-13 10:06 | Outpatient (BNVA) | payer MEDICAID, SELFPAY ==
[2024-06-22 09:22] VITALS: BP 110/74; BMI 36.6
== END ==
PROVIDERS: PCP Nurse Practitioner Family; Visit Provider Nurse Practitioner Family
DX: S43.112A Subluxation of left acromioclavicular joint, initial encounter (principal); M25.712 Osteophyte, left shoulder; M25.522 Pain in left elbow; Z95.0 Presence of cardiac pacemaker; X58.XXXA Exposure to other specified factors, initial encounter
CPT/HCPCS: 73030

== ENCOUNTER 2024-12-22 09:44 | Emergency (ER) | payer MEDICAID, SELFPAY ==
[2024-06-22 09:22] VITALS: BP 110/74; BMI 36.6
[2024-12-22] VITALS (7 sets, daily range): BP systolic 92–117; BP diastolic 55–79; PULSE 67–79; RESP 16; TEMP 36.6; O2SAT 96–97; BMI 39.6
--- NOTE | 2024-12-22 10:21 | ECG_ITS ---
[facility] Pat Name: Amrik Alexander Department: Room: Gender: Male Tim[employer]: : 1960 Requested By: Ozzie Laguna Order Number: [id number] Smyth MD: Joe Holder M.D. Measurements Intervals [place] Rate: 70 P: 104 AK: 178 QRS: 189 QRSD: 215 T: 32 QT: 539 QTc: 583 Interpretive Statements ELECTRONIC ATRIAL PACEMAKER ELECTRONIC VENTRICULAR PACEMAKER PROLONGED QT INTERVAL CRITICAL TEST RESULT Compared to ECG 08/17/2024 18:38:25 Prolonged QT interval now present Electronically Signed On 12-22-2024 17:29:28 OIL LEASE BROKER by Joe Holder M.D. [email or web address]
--- NOTE | 2024-12-22 10:22 | XR_ITS ---
WS: [id number] XR chest 1V portable [id number] REASON FOR EXAM: Dyspnea FINDINGS: The chest is unchanged compared to 10/07/2024. Cardiac device in place over the right chest with 3 trans right subclavian vein leads, one to the right atrium and 2 to the right ventricle. There is an additional lead remnant from the left subclavian vein to the right ventricle. There is cardiomegaly and central venous congestion. No acute pulmonary parenchymal or pleural abnormality. Moderate degenerative spondylosis in the thoracic spine. XR/XR chest 1V portable [id number] IMPRESSION: Stable abnormal chest as above. No acute abnormality identified.
[2024-12-22 11:16] LABS: Basophils % 0.5 %; Eosinophils # 0.1 10^3/uL (0.0-0.8); Eosinophils % 1.1 %; Hematocrit 38.6 % (37-53); Lymphocytes # 1.4 10^3/uL (0.8-4.8); Lymphocytes % 16.4 %; Mean Corpuscular HGB Conc 29.8 g/dL (30-55); Mean Corpuscular Hemoglobin 23.8 pg (27-33); Mean Corpuscular Volume 79.9 fl (82-101); Mean Platelet Volume 10.4 fL (7.4-10.4); Monocytes # 0.6 10^3/uL (0.2-0.9); Monocytes % 7.1 %; Neutrophils # 6.35 10^3/uL (1.8-7.7); Neutrophils % 74.3 %; Nucleated Red Blood Cells % 0 %; Platelet Count 223 10^3/cmm (157-399); Red Blood Count 4.83 10^6/uL (3.85-5.65); Red Cell Distribution Width 19.5 % (12.1-15.1); White Blood Count 8.54 10^3/uL (3.29-11.43)
--- NOTE | 2024-12-22 11:20 | W.ED.SOB ---
HPI - SOB/Dyspnea General: Chief Complaint: Shortness of Breath/Dyspnea Stated Complaint: gained 10lbs (1wk) Time Seen by Provider: 12/22/24 10:07 History of Present Illness: HPI Narrative: Patient presents to the ER with complaints of increasing shortness of breath. Specially in he bends over. Patient says he called failure clinic and spoke with them they told him to come over here. He said he is gained 11 pounds in the last week. He is on a diuretic twice a day. He is seen by the ship loader up in [place] for what sounds like endocarditis he says he is on an every day for the rest of his life for heart infection. He has been taking all his medicines without failure. He has been getting worse. He denies any fevers chills coughs colds or overt sickness. Related Data Home Medications ?Medication ?Instructions ?Recorded ?Confirmed fluticasone propionate 50 2 spray intranasal DAILY PRN 08/17/23 12/22/24 mcg/actuation nasal Allergy Symptoms spray,suspension (Flonase Allergy Relief) allopurinol 300 mg tablet 300 mg PO QAM 08/17/24 12/22/24 levocetirizine 5 mg tablet 5 mg PO DAILY 08/17/24 12/22/24 potassium citrate 10 mEq (1,080 20 meq PO BID 08/17/24 12/22/24 mg) tablet,extended release bumetanide 1 mg tablet 1 mg PO BID 12/22/24 12/22/24 carvedilol 12.5 mg tablet 25 mg PO BID 12/22/24 12/22/24 cefadroxil 500 mg capsule 500 mg PO BID 12/22/24 12/22/24 dapagliflozin propanediol 10 mg 10 mg PO DAILY 12/22/24 12/22/24 tablet (Farxiga) pantoprazole 40 mg tablet,delayed 40 mg PO BID 12/22/24 12/22/24 release rosuvastatin 40 mg tablet 40 mg PO BEDTIME 12/22/24 12/22/24 Previous Rx's ?Medication ?Instructions ?Recorded nebulizer machine with tubing and #1 ea 09/09/22 mask CPAP (Standard Cpap) #1 ea 04/09/24 albuterol sulfate 2.5 mg/3 mL 2.5 mg (3 mL) inhalation QID PRN 06/03/24 (0.083 %) solution for nebulization shortness of breath or wheezing #180 mL albuterol sulfate 90 mcg/actuation 2 inh inhalation Q6H PRN Shortness 06/03/24 aerosol inhaler Of Breath #8.5 grams insulin glargine 100 unit/mL (3 30 unit (0.3 mL) SUBCUT BEDTIME 06/28/24 mL) subcutaneous pen (Lantus #15 mL Solostar U-100 Insulin) blood sugar diagnostic (Blood #200 ea 08/05/24 Glucose Test strips) blood-glucose meter #1 ea 08/05/24 lancets #200 ea 08/05/24 apixaban 2.5 mg tablet 2.5 mg PO BID 90 days #180 tabs 08/31/24 budesonide-formoterol HFA 160 2 puff inhalation BID #10.2 grams 09/22/24 mcg-4.5 mcg/actuation aerosol inhaler (Symbicort) nebulizer hosing and delivery #1 09/22/24 device amiodarone 200 mg tablet (Pacerone) 200 mg PO DAILY #60 tabs 10/09/24 spironolactone 25 mg tablet 25 mg PO DAILY #90 tabs 10/29/24 metoprolol succinate 25 mg 25 mg PO DAILY #30 tabs 11/11/24 tablet,extended release 24 hr sertraline 100 mg tablet 100 mg PO QAM #30 tabs 11/25/24 ropinirole 1 mg tablet 1 mg PO BID #60 tabs 12/13/24 Allergies Allergy/AdvReac Type Severity Reaction Status Date / Time isosorbide Allergy unknown Verified 11/25/24 11:24 Penicillins AdvReac rash Verified 11/25/24 11:24 Review of Systems General: Reports: 10 or more systems reviewed and unremarkable except in HPI and below PFSH ED PFSH: Medical History Endocarditis pacemaker lead infection. Treated in COPD (chronic obstructive pulmonary disease) Cardiomyopathy Coronary artery disease Type 2 diabetes mellitus Cardiac resynchronization therapy defibrillator (AUTOMOTIVE WELDER-D) in place [place], 07/11/2020 Mixed hyperlipidemia Hypertension CVA (cerebral vascular accident) PVCs (premature ventricular contractions) Hypomagnesemia Infarction of spleen Nausea & vomiting Gastroparesis Major depressive disorder, recurrent episode, mild degree Major depressive disorder in partial remission Allergic rhinitis Bipolar II disorder Diabetes Non-ST elevation DE (NSTEMI) Uses bilevel positive airway pressure (BPAP) ventilation at home 12/8cm Dysarthria Unstable angina Nonischemic congestive cardiomyopathy Chronic low back pain Elevated blood uric acid level History of sleep study 2017 at [facility]: Optimal pressure settings with BiPAP found to be 12/8 cm COVID-19 Wound infection following procedure infection with defibrillator lead revision, removed , scarring left subclavian area from this GERD (gastroesophageal reflux disease) ALBERTO (obstructive sleep apnea) C. difficile diarrhea Cataracts, bilateral CHF (congestive heart failure) Urolithiasis Multi stone former, calcium oxalate mono and dihydrate. Also calcium phosphate. Multiple interventions including endoscopy with laser lithotripsy and ESWL. Metabolic treatment with potassium citrate Hemorrhoids Psychiatric care Right ureteral calculus Osteoarthritis of hands, bilateral Pacemaker Surgical History S/P epidural steroid injection Status post hemorrhoidectomy Hx of umbilical hernia repair Hx of lithotripsy History of urethral stent H/O esophagogastroduodenoscopy (02/27/21) gastritis, duodenitis History of colonoscopy (02/27/21) descending colon polyp, hemorrhoids History of carpal tunnel release of both wrists History of permanent cardiac pacemaker placement Hx of cataract surgery Hx of shoulder surgery Family History Grandfather CAD (coronary artery disease) Brother Cancer colon cancer Diabetes Mother Diabetes Father No problems noted. Other Hypertension Rheumatoid arthritis Social History Smoking and tobacco/nicotine status: never used tobacco/nicotine Second hand smoke exposure: No Alcohol intake: former Year of sobriety/quit date alcohol: 1997 Substance/Drug Use: former Date of last use: 1997 Caregiver/support person: Yes Lives independently: Yes Household members: spouse Marital status: service: No Current occupational status: disabled Current gender identity: Male Special fernando needs: No Agree to transfusion: Yes Physical Exam Const: COMMON NORMALS: no acute distress, average body habitus, patient oriented x3, no limitations, healthy appearing, alert and well nourished HENMT: COMMON NORMALS: normocephalic, atraumatic, hearing grossly normal bilaterally, external ears normal and Normal external nose present HEAD & SCALP: normocephalic and atraumatic NOSE: Normal external nose present EXTERNAL EAR: Yes external ears normal Neck/C-Spine: COMMON NORMALS: no JVD Chest: COMMONS NORMALS: normal inspection of the chest and normal palpation of entire chest wall Resp: COMMON NORMALS: normal respiratory effort, No retractions, No use of accessory muscles and clear to auscultation bilaterally AUSCULTATION: clear to auscultation bilaterally Cardio: COMMON NORMALS: no JVD, regular rate, regular rhythm, S1 normal heart sound present, S2 normal heart sound present, No gallops present (Cardio), No clicks present (Cardio), No murmurs present (Cardio) and No rub (Cardio) RATE: regular rate RHYTHM: regular rhythm HEART SOUNDS: S1 normal heart sound present and S2 normal heart sound present GI: COMMON NORMALS: Normal to inspection, nondistended, normoactive bowel sounds present, Soft to palpation, non-tender, No hepatosplenomegaly present and no masses PALPATION: Yes Soft to palpation and Yes No hepatosplenomegaly present Extremity: NARRATIVE EXTREMITY EXAM: 1+ pitting edema bilateral lower extremities Neuro: COMMON NORMALS: patient oriented x3 SENSORIUM/ORIENTATION: Yes alert Course Vital Signs: Vital signs: Vital Signs Temperature 97.9 F 12/22/24 10:08 Pulse Rate 67 12/22/24 14:00 Respiratory Rate 16 12/22/24 10:08 Blood Pressure 108/55 12/22/24 12:00 Pulse Oximetry 97 12/22/24 14:00 Oxygen Delivery Me thod Room Air 12/22/24 14:00 MDM - SOB/Dyspnea Medical Decision Making Lab work revealed white count 8.5 hemoglobin 11.5 BUN/creatinine 23 and 1.7 up from 22 and 1.0 about 2 months ago. BNP consistently elevated around 3175, initial troponin 46, 2-hour troponin approximately 42 for delta of -4, chest x-ray stable, patient was given additional dose of Bumex 2 mg in the ER and produced approximately a liter diuresis during his stay. These results was discussed with the patient and his need to follow-up with the nephrology. Patient is never seen a cement cutter. We will refer him to 1. Patient be discharged from the ER. Lab Data I reviewed the patient's lab results. 12/22/24 11:07 12/22/24 11:07 Labs/Radiology: Radiology Impressions Chest X-Ray 12/22/24 10:22 IMPRESSION: Stable abnormal chest as above. No acute abnormality identified. Laboratory Results WBC 8.54 10^3/uL (3.29-11.43) 12/22/24 11:07 RBC 4.83 10^6/uL (3.85-5.65) 12/22/24 11:07 Hgb 11.50 g/dL (11.27-16.99) 12/22/24 11:07 Hct 38.6 % (37-53) 12/22/24 11:07 MCV 79.9 fl (82-101) L 12/22/24 11:07 MCH 23.8 pg (27-33) L 12/22/24 11:07 MCHC 29.8 g/dL (30-55) L 12/22/24 11:07 RDW 19.5 % (12.1-15.1) H 12/22/24 11:07 Plt Count 223 10^3/cmm (157-399) 12/22/24 11:07 MPV 10.4 fL (7.4-10.4) 12/22/24 11:07 Neut % (Auto) 74.3 % 12/22/24 11:07 Lymph % (Auto) 16.4 % 12/22/24 11:07 Amelia % (Auto) 7.1 % 12/22/24 11:07 Eos % (Auto) 1.1 % 12/22/24 11:07 Baso % (Auto) 0.5 % 12/22/24 11:07 Neut # (Auto) 6.35 10^3/uL (1.8-7.7) 12/22/24 11:07 Lymph # (Auto) 1.4 10^3/uL (0.8-4.8) 12/22/24 11:07 Amelia # (Auto) 0.6 10^3/uL (0.2-0.9) 12/22/24 11:07 Eos # (Auto) 0.1 10^3/uL (0.0-0.8) 12/22/24 11:07 Baso # (Auto) 0.0 10^3/uL (0.0-0.1) 12/22/24 11:07 Nucleated RBC % (auto) 0 % 12/22/24 11:07 Nucleated RBCs # 0.0 /100WBC 12/22/24 11:07 Sodium 132 mmol/L (136-145) L 12/22/24 11:07 Potassium 3.5 mmol/L (3.5-5.1) 12/22/24 11:07 Chloride 93 mmol/L (98-107) L 12/22/24 11:07 Carbon Dioxide 25 mmol/L (22-29) 12/22/24 11:07 Anion Gap 17.5 (5-19) 12/22/24 11:07 BUN 23 mg/dL (8-23) 12/22/24 11:07 Creatinine 1.7 mg/dL (0.7-1.2) H 12/22/24 11:07 GFR Calculation 40.8 mL/min (90-130) L 12/22/24 11:07 Glucose 306 mg/dL (65-115) H 12/22/24 11:07 Calculated Osmolality 289 mOsm/kg (285-295) 12/22/24 11:07 Calcium 9.0 mg/dL (8.5-10.5) 12/22/24 11:07 Magnesium 2.1 mg/dL (1.7-2.3) 12/22/24 11:07 Total Bilirubin 0.9 mg/dL (0.15-1.2) 12/22/24 11:07 AST 38 U/L (0-40) 12/22/24 11:07 ALT 34 U/L (0-41) 12/22/24 11:07 Alkaline Phosphatase 154 U/L (40-130) H 12/22/24 11:07 Troponin T Baseline 46 ng/L (0-15) H 12/22/24 11:07 Troponin T 120 Minute 42.85 ng/L (0-15) H 12/22/24 13:09 Delta Troponin T -3.15 ABS# (0-10) L 12/22/24 13:09 NT-Pro-B Natriuret Pep 3175 pg/mL (0-125) H 12/22/24 11:07 Total Protein 6.1 g/dL (6.6-8.7) L 12/22/24 11:07 Albumin 3.7 g/dL (3.5-5.2) 12/22/24 11:07 Globulin 2.4 g/dL (1.3-4.6) 12/22/24 11:07 Urine Color Yellow (Yellow) 12/22/24 11:40 Urine Appearance Clear (CLEAR) 12/22/24 11:40 Urine pH 7.5 (5-7) 12/22/24 11:40 Ur Specific [place] 1.015 (1.005-1.030) 12/22/24 11:40 Urine Protein 1+ (Negative) A 12/22/24 11:40 Urine Glucose (UA) 3+ (Normal) H 12/22/24 11:40 Urine Ketones Negative (Negative) 12/22/24 11:40 Urine Blood Negative (Negative) 12/22/24 11:40 Urine Nitrate Negative (Negative) 12/22/24 11:40 Urine Bilirubin Negative (Negative) 12/22/24 11:40 Urine Urobilinogen 1.0 mg/dL (Negative) 12/22/24 11:40 Ur Leukocyte Esterase Negative (Negative) 12/22/24 11:40 Urine RBC 0-2 /hpf (0-2) 12/22/24 11:40 Urine WBC 0-5 /hpf (0-5) 12/22/24 11:40 Ur Squamous Epith Cells 0-5 /hpf (0-5) 12/22/24 11:40 Amorphous Sediment Not Reportable 12/22/24 11:40 Urine Bacteria None seen /hpf (NONE) 12/22/24 11:40 Hyaline Casts 0.40 /lpf 12/22/24 11:40 Coronavirus (PCR) Negative (Negative) 12/22/24 12:00 Influenza A (PCR) Negative (Negative) 12/22/24 12:00 Influenza Type B (PCR) Negative (Negative) 12/22/24 12:00 RSV (PCR) Negative (Negative) 12/22/24 12:00 All radiology interpretation(s) finalized by discharge Discharge Plan Discharge Patient Disposition: Home Clinical Impression: Congestive heart failure, Acute kidney injury Edema Qualifiers: Edema type: localized Qualified Code(s): R60.0 - Localized edema Condition: Stable Prescriptions: No Action albuterol sulfate 2.5 mg /3 mL (0.083 %) solution for nebulization 2.5 mg inhalation QID PRN (Reason: shortness of breath or wheezing) Qty: 180 5RF albuterol sulfate 90 mcg/actuation HFA aerosol inhaler 2 inh INHALATION Q6H PRN (Reason: Shortness Of Breath) Qty: 8.5 2RF (DME) blood-glucose meter Misc See Rx Instructions .MEDSUPPLY Qty: 1 0RF Rx Instructions: Use as directed for checking blood sugar twice daily (DME) Blood Glucose Test Strip See Rx Instructions .MEDSUPPLY Qty: 200 12RF Rx Instructions: Use as directed with glucometer to check blood sugar twice daily (DME) lancets Misc See Rx Instructions .MEDSUPPLY Qty: 200 12RF Rx Instructions: Use as directed to prick skin for blood sugar checks twice daily sertraline 100 mg tablet 100 mg PO QAM Qty: 30 2RF ropinirole 1 mg tablet 1 mg PO BID Qty: 60 2RF (DME) nebulizer machine with tubing and mask See Rx Instructions .Route .MEDSUPPLY Qty: 1 0RF Rx Instructions: As directed apixaban 2.5 mg tablet 2.5 mg PO BID 90 Days Qty: 180 1RF budesonide-formoterol [Symbicort] 160-4.5 mcg/actuation HFA aerosol inhaler 2 puff inhalation BID Qty: 10.2 0RF (DME) nebulizer hosing and delivery device See Rx Instructions .Route .MEDSUPPLY Qty: 1 12RF Rx Instructions: As directed (DME) Standard Cpap Device See Rx Instructions .Route Qty: 1 0RF Rx Instructions: As directed WITH SUPPLIES insulin glargine [Lantus Solostar U-100 Insulin] 100 unit/mL (3 mL) insulin pen 30 unit SUBCUT BEDTIME Qty: 15 2RF spironolactone 25 mg tablet 25 mg PO DAILY Qty: 90 1RF metoprolol succinate 25 mg tablet extended release 24 hr 25 mg PO DAILY Qty: 30 0RF potassium citrate 10 mEq (1,080 mg) tablet extended release 20 meq PO BID allopurinol 300 mg tablet 300 mg PO QAM levocetirizine 5 mg tablet 5 mg PO DAILY amiodarone [Pacerone] 200 mg Tablet 200 mg PO DAILY Qty: 60 3RF fluticasone propionate [Flonase Allergy Relief] 50 mcg/actuation spray,suspension 2 spray intranasal DAILY PRN (Reason: Allergy Symptoms) Rx Instructions: administer into each nostril carvedilol 12.5 mg tablet 25 mg PO BID cefadroxil 500 mg capsule 500 mg PO BID pantoprazole 40 mg tablet,delayed release (DR/EC) 40 mg PO BID bumetanide 1 mg tablet 1 mg PO BID rosuvastatin 40 mg tablet 40 mg PO BEDTIME dapagliflozin propanediol [Farxiga] 10 mg tablet 10 mg PO DAILY Discharge Orders: Discharge ED (Routine); Ordered 12/22/24 Ordered By: Ozzie Laguna Referrals: Lucrecia Blandon FNP [Primary Care Provider] - 1 week Patient Instructions: Edema (ED), Congestive Heart Failure, Acute Kidney Injury (DC) Activity Restrictions/Additional Instructions: Your evaluation ER shows your kidneys are working quite as good as a have been in the past. This makes it harder for your diuretic to help remove excess water. This makes your edema worse and your shortness of breath worse. We have referred you to a cement cutter or kidney specialist to help us with this problem. They may want to do additional testing or adjust her medications. Please follow-up with your family practice doctor within the next 7 to 10 days for further evaluation and treatment in the meantime. If your condition suddenly worsens please feel free to return to the ER. Print Language: Kinyarwanda Coding Level of Care Code ED Superintendent Meters for Ck Crooks
[2024-12-22 11:37] LABS: Troponin(5th) Baseline 46 ng/L (0-15)
[2024-12-22 11:45] LABS: Alanine Aminotransferase 34 U/L (0-41); Albumin Level 3.7 g/dL (3.5-5.2); Alkaline Phosphatase 154 U/L (40-130); Anion Gap 17.5 (5-19); Aspartate Amino Transferase 38 U/L (0-40); Blood Urea Nitrogen 23 mg/dL (8-23); Carbon Dioxide 25 mmol/L (22-29); Chloride 93 mmol/L (98-107); Creatinine Clr Calc Pharmacy 49.7805; Globulin 2.4 g/dL (1.3-4.6); Glomerular Filtration Rate 40.8 mL/min (90-130); Glucose 306 mg/dL (65-115); Magnesium 2.1 mg/dL (1.7-2.3); NT Pro B Type Natriuretic Pept 3175 pg/mL (0-125); Osmolality Calculated 289 mOsm/kg (285-295); Potassium 3.5 mmol/L (3.5-5.1); Sodium 132 mmol/L (136-145); Total Bilirubin 0.9 mg/dL (0.15-1.2); Total Protein 6.1 g/dL (6.6-8.7)
[2024-12-22] MEDS: bumetanide 1 mg Tablet PO (12:14)
[2024-12-22 12:16] LABS: Bilirubin Urine Negative (Negative); Blood Urine Negative (Negative); Glucose Urine UA 3+ (Normal); Ketones Urine Negative (Negative); Leukocyte Esterase Urine Negative (Negative); Nitrate Urine Negative (Negative); Protein Urine 1+ (Negative); Specific Gravity, Urine 1.015 (1.005-1.030); Urine Appearance Clear (CLEAR); Urine Color Yellow (Yellow); pH Urine 7.5 (5-7)
[2024-12-22 12:21] LABS: Add Urine Microscopic? YES; Bacteria Urine None Seen /hpf; RBC Urine 0-2 /hpf (0-2); Squamous Epithelial Cell Urine 0-5 /hpf (0-5); WBC Urine 0-5 /hpf (0-5)
--- NOTE | 2024-12-22 12:21 | ECG_ITS ---
[facility] Date: 2024-12-22 Pat Name: Amrik Alexander Department: Room: Gender: Male Bandoleer Packer: : 1960 Requested By: Ozzie Laguna Order Number: [id number] Smyth MD: Joe Holder M.D. Measurements Intervals [place] Rate: 70 P: 251 NE: 180 QRS: 179 QRSD: 217 T: 29 QT: 540 QTc: 584 Interpretive Statements ELECTRONIC ATRIAL PACEMAKER ELECTRONIC VENTRICULAR PACEMAKER PROLONGED QT INTERVAL CRITICAL TEST RESULT Compared to ECG 12/22/2024 10:17:48 No significant changes Electronically Signed On 12-22-2024 18:04:32 GOLD LETTERER by Joe Holder M.D. [email or web address]
[2024-12-22 12:50] LABS: Covid PCR NEGATIVE (Negative); Influenza A NEGATIVE (Negative); Influenza B NEGATIVE (Negative); Respiratory Syncytial Virus Ce NEGATIVE (Negative)
[2024-12-22 13:47] LABS: Troponin 5 2HR 42.85 ng/L (0-15)
[2024-12-22 13:56] LABS: Troponin 5 2HR Delta -3.15 ABS# (0-10)
--- NOTE | 2024-12-23 10:46 | DCPLANNER ---
[facility]
== END 2024-12-22 15:10 | disposition home or self-care (01) ==
PROVIDERS: Emergency Provider Emergency Medicine; PCP Nurse Practitioner Family
DX: I11.0 Hypertensive heart disease with heart failure (principal); I50.9 Heart failure, unspecified; J44.9 Chronic obstructive pulmonary disease, unspecified; Z95.0 Presence of cardiac pacemaker; E11.9 Type 2 diabetes mellitus without complications; N17.9 Acute kidney failure, unspecified; R60.0 Localized edema; Z11.52 Encounter for screening for COVID-19; Z79.4 Long term (current) use of insulin; Z86.73 Personal history of transient ischemic attack (TIA), and cerebral infarction without residual deficits
CPT/HCPCS: 36415; 71045; 80053; 81001; 83735; 83880; 84484; 85025; 87637; 93005; 99285

== ENCOUNTER → 2024-12-27 08:54 | Outpatient (BNVA) | payer MEDICAID, SELFPAY ==
[2024-06-22 09:22] VITALS: BP 110/74; BMI 36.6
== END ==
PROVIDERS: PCP Nurse Practitioner Family; Visit Provider Nurse Practitioner
DX: M19.012 Primary osteoarthritis, left shoulder (principal)
CPT/HCPCS: 73030

== ENCOUNTER 2025-01-02 16:33 | Emergency (ER) | payer MEDICAID, SELFPAY ==
[2024-06-22 09:22] VITALS: BP 110/74; BMI 36.6
[2025-01-02] VITALS (9 sets, daily range): BP systolic 116–132; BP diastolic 72–91; PULSE 69–73; RESP 18–26; TEMP 36.4; O2SAT 96–100; BMI 39.9
--- NOTE | 2025-01-02 17:10 | XRR_ITS ---
PROCEDURE INFORMATION: Exam: XR Chest Exam date and time: 01/02/2025 5:14 PM Age: 64 years old Clinical indication: Shortness of breath; Prior surgery; Surgery date: 6+ months; Surgery type: Pacemaker; Dyspnea; Cough; Additional info: Dyspnea; Coughsind TECHNIQUE: Imaging protocol: Radiologic exam of the chest. Views: 1 view. COMPARISON: CR XR chest 1V portable [id number] 12/22/2024 10:36 AM FINDINGS: Tubes, catheters and devices: Cardiac rhythm management (AICD) device again noted without change. Lungs: Unremarkable. No consolidation. Pleural spaces: Unremarkable. No pleural effusion. No pneumothorax. Heart/Mediastinum: Cardiomegaly again noted. Bones/joints: Unremarkable. XR/XR chest 1V portable [id number] IMPRESSION: No acute intrathoracic process seen. No significant change from prior study.
--- NOTE | 2025-01-02 17:11 | ECG_ITS ---
[facility]: 2025[facility]02 Pat Name: Amrik Alexander Department: Room: Gender: Male It Desktop Support Technician: : 1960 Requested By: Erik Lee Order Number: [id number] Haja MD: VAUGHN RAMACHANDRAN Measurements Intervals [place] Rate: 70 P: 131 FL: 174 QRS: 193 QRSD: 214 T: 31 QT: 508 QTc: 549 Interpretive Statements ELECTRONIC ATRIAL PACEMAKER ELECTRONIC VENTRICULAR PACEMAKER ABNORMAL RHYTHM ECG Compared to ECG 12/22/2024 12:21:03 Prolonged QT interval no longer present Electronically Signed On 01-04-2025 23:50:45 MUSEUM TECHNICIAN by VAUGHN RAMACHANDRAN [email or web address]
[2025-01-02] MEDS: ipratropium-albuterol 3 mL Neb INHALATION (17:25)
[2025-01-02 17:59] LABS: Eosinophils % 0.2 %; Hematocrit 37.8 % (37-53); Lymphocytes # 0.9 10^3/uL (0.8-4.8); Lymphocytes % 8.2 %; Mean Corpuscular HGB Conc 30.2 g/dL (30-55); Mean Corpuscular Hemoglobin 23.5 pg (27-33); Mean Corpuscular Volume 77.9 fl (82-101); Mean Platelet Volume 10.6 fL (7.4-10.4); Monocytes # 0.8 10^3/uL (0.2-0.9); Monocytes % 8.1 %; Neutrophils # 8.54 10^3/uL (1.8-7.7); Neutrophils % 82.4 %; Nucleated Red Blood Cells % 0 %; Platelet Count 277 10^3/cmm (157-399); Red Blood Count 4.85 10^6/uL (3.85-5.65); Red Cell Distribution Width 19.6 % (12.1-15.1); White Blood Count 10.36 10^3/uL (3.29-11.43)
[2025-01-02 18:28] LABS: Alanine Aminotransferase 25 U/L (0-41); Albumin Level 3.6 g/dL (3.5-5.2); Alkaline Phosphatase 175 U/L (40-130); Anion Gap 16.8 (5-19); Aspartate Amino Transferase 15 U/L (0-40); Blood Urea Nitrogen 29 mg/dL (8-23); Calcium 8.9 mg/dL (8.5-10.5); Carbon Dioxide 24 mmol/L (22-29); Chloride 92 mmol/L (98-107); Creatinine Clr Calc Pharmacy 65.3184; Globulin 2.4 g/dL (1.3-4.6); Glomerular Filtration Rate 55.6 mL/min (90-130); NT Pro B Type Natriuretic Pept 7069 pg/mL (0-125); Osmolality Calculated 300 mOsm/kg (285-295); Potassium 4.8 mmol/L (3.5-5.1); Sodium 128 mmol/L (136-145); Total Bilirubin 1.2 mg/dL (0.15-1.2)
[2025-01-02 18:37] LABS: Glucose 614 mg/dL (65-115)
[2025-01-02] MEDS: sodium chloride 0.9% 1,000 ML 999 ML IV (18:45)
[2025-01-02] MEDS: methylPREDNISolone sod succ 125 mg/2 mL INJ IV (18:46)
[2025-01-02 19:27] LABS: Influenza A NEGATIVE (Negative); Influenza B NEGATIVE (Negative); Respiratory Syncytial Virus Ce NEGATIVE (Negative); SARS-CoV-2 PCR NEGATIVE (Negative)
--- NOTE | 2025-01-02 19:35 | PC.NURSE ---
checked pts bg and the accucheck read hi
[2025-01-02 19:37] LABS: Glucose Point of Care > 600 mg/dL (70-110)
[2025-01-02] MEDS: insulin regular-human 100 units/1 mL 16 UNIT IVP (19:41)
--- NOTE | 2025-01-02 20:14 | PC.NURSE ---
pt bg 419
[2025-01-02 20:19] LABS: Glucose Point of Care 419 mg/dL (70-110)
--- NOTE | 2025-01-02 21:30 | W.ED.SOB ---
HPI - SOB/Dyspnea General: Chief Complaint: Shortness of Breath/Dyspnea Stated Complaint: sob Time Seen by Provider: 01/02/25 16:57 History of Present Illness: HPI Narrative: This patient is a 64-year-old white male who presents to the emergency department complaining of shortness of breath which is worse when he is bending over. States he has chronic shortness of breath secondary to COPD but has been worse for the past several days. Has had a mild cough. No fever. Past medical history includes coronary artery disease, CVA, COPD, obstructive sleep apnea and insulin-dependent diabetes. Related Data Home Medications ?Medication ?Instructions ?Recorded ?Confirmed fluticasone propionate 50 2 spray intranasal DAILY PRN 08/17/23 12/27/24 mcg/actuation nasal Allergy Symptoms spray,suspension (Flonase Allergy Relief) allopurinol 300 mg tablet 300 mg PO QAM 08/17/24 12/27/24 levocetirizine 5 mg tablet 5 mg PO DAILY 08/17/24 12/27/24 potassium citrate 10 mEq (1,080 20 meq PO BID 08/17/24 12/27/24 mg) tablet,extended release bumetanide 1 mg tablet 1 mg PO BID 12/22/24 12/27/24 carvedilol 12.5 mg tablet 25 mg PO BID 12/22/24 12/27/24 cefadroxil 500 mg capsule 500 mg PO BID 12/22/24 12/27/24 dapagliflozin propanediol 10 mg 10 mg PO DAILY 12/22/24 12/27/24 tablet (Farxiga) pantoprazole 40 mg tablet,delayed 40 mg PO BID 12/22/24 12/27/24 release rosuvastatin 40 mg tablet 40 mg PO BEDTIME 12/22/24 12/27/24 Previous Rx's ?Medication ?Instructions ?Recorded nebulizer machine with tubing and #1 ea 09/09/22 mask CPAP (Standard Cpap) #1 ea 04/09/24 albuterol sulfate 2.5 mg/3 mL 2.5 mg (3 mL) inhalation QID PRN 06/03/24 (0.083 %) solution for nebulization shortness of breath or wheezing #180 mL albuterol sulfate 90 mcg/actuation 2 inh inhalation Q6H PRN Shortness 06/03/24 aerosol inhaler Of Breath #8.5 grams insulin glargine 100 unit/mL (3 30 unit (0.3 mL) SUBCUT BEDTIME 06/28/24 mL) subcutaneous pen (Lantus #15 mL Solostar U-100 Insulin) blood sugar diagnostic (Blood #200 08/05/24 Glucose Test strips) blood-glucose meter #1 08/05/24 lancets #200 08/05/24 apixaban 2.5 mg tablet 2.5 mg PO BID 90 days #180 tabs 08/31/24 budesonide-formoterol HFA 160 2 puff inhalation BID #10.2 grams 09/22/24 mcg-4.5 mcg/actuation aerosol inhaler (Symbicort) nebulizer hosing and delivery #1 09/22/24 device amiodarone 200 mg tablet (Pacerone) 200 mg PO DAILY #60 tabs 10/09/24 spironolactone 25 mg tablet 25 mg PO DAILY #90 tabs 10/29/24 metoprolol succinate 25 mg 25 mg PO DAILY #30 tabs 11/11/24 tablet,extended release 24 hr sertraline 100 mg tablet 100 mg PO QAM #30 tabs 11/25/24 ropinirole 1 mg tablet 1 mg PO BID #60 tabs 12/13/24 prednisone 5 mg tablets in a dose See Rx Instructions PO .COMPLEX 01/02/25 pack #21 ea Allergies Allergy/AdvReac Type Severity Reaction Status Date / Time isosorbide Allergy unknown Verified 01/02/25 16:55 Penicillins AdvReac rash Verified 01/02/25 16:55 Review of Systems General: Reports: 10 or more systems reviewed and unremarkable except in HPI and below Resp: Reports: dyspnea and non-productive cough PFS ED PFSH: Medical History Endocarditis pacemaker lead infection. Treated in COPD (chronic obstructive pulmonary disease) Cardiomyopathy Coronary artery disease Type 2 diabetes mellitus Cardiac resynchronization therapy defibrillator ([employer]) in place [facility] [place] [place], 07/11/2020 Mixed hyperlipidemia Hypertension CVA (cerebral vascular accident) PVCs (premature ventricular contractions) Hypomagnesemia Infarction of spleen Nausea & vomiting Gastroparesis Major depressive disorder, recurrent episode, mild degree Major depressive disorder in partial remission Allergic rhinitis Bipolar II disorder Diabetes Non-ST elevation [place] (NSTEMI) Uses bilevel positive airway pressure (BPAP) ventilation at home 12/8cm Dysarthria Unstable angina Nonischemic congestive cardiomyopathy Chronic low back pain Elevated blood uric acid level History of sleep study 2017 at [facility]: Optimal pressure settings with BiPAP found to be 12/8 cm COVID-19 Wound infection following procedure infection with defibrillator lead revision, removed , scarring left subclavian area from this GERD (gastroesophageal reflux disease) ALBERTO (obstructive sleep apnea) C. difficile diarrhea Cataracts, bilateral CHF (congestive heart failure) Urolithiasis Multi stone former, calcium oxalate mono and dihydrate. Also calcium phosphate. Multiple interventions including endoscopy with laser lithotripsy and ESWL. Metabolic treatment with potassium citrate Hemorrhoids Psychiatric care Right ureteral calculus Osteoarthritis of hands, bilateral Pacemaker Surgical History S/P epidural steroid injection Status post hemorrhoidectomy Hx of umbilical hernia repair Hx of lithotripsy History of urethral stent H/O esophagogastroduodenoscopy (02/27/21) gastritis, duodenitis History of colonoscopy (02/27/21) descending colon polyp, hemorrhoids History of carpal tunnel release of both wrists History of permanent cardiac pacemaker placement Hx of cataract surgery Hx of shoulder surgery Family History Grandfather CAD (coronary artery disease) Brother Cancer colon cancer Diabetes Mother Diabetes Father No problems noted. Other Hypertension Rheumatoid arthritis Social History Smoking and tobacco/nicotine status: never used tobacco/nicotine Second hand smoke exposure: No Alcohol intake: former Year of sobriety/quit date alcohol: 1997 Substance/Drug Use: former Date of last use: 1997 Caregiver/support person: Yes Lives independently: Yes Household members: spouse Marital status: service: No Current occupational status: disabled Current gender identity: Male Special fernando needs: No Agree to transfusion: Yes Physical Exam Const: COMMON NORMALS: no acute distress, patient oriented x3 and no limitations GENERAL APPEARANCE: cooperative and comfortable HENMT: COMMON NORMALS: normocephalic, atraumatic, Normal nasal mucous membranes and turbinates present, moist oral mucous membranes and oropharynx normal HEAD & SCALP: normal to inspection, normocephalic and atraumatic FACE & SINUS: normal facial exam NOSE: Normal nasal mucous membranes and turbinates present Eye: COMMON NORMALS: Equal, round and reactive pupils present, EOMs intact bilaterally and conjunctivae normal GENERAL EYE: appearance normal, both eyes and all related structures CONJUNCTIVA: Yes conjunctivae normal PUPIL: Yes Equal, round and reactive pupils present Neck/C-Spine: COMMON NORMALS: supple and no JVD Chest: COMMONS NORMALS: normal inspection of the chest Resp: COMMON NORMALS: normal respiratory effort AUSCULTATION: wheezes and diminished lung sounds Cardio: COMMON NORMALS: no JVD, regular rate, regular rhythm, No gallops present (Cardio), No murmurs present (Cardio) and No rub (Cardio) RATE: regular rate RHYTHM: regular rhythm GI: COMMON NORMALS: Normal to inspection, nondistended, normoactive bowel sounds present, Soft to palpation and non-tender AUSCULTATION: Yes normoactive bowel sounds PALPATION: Yes Soft to palpation : COMMON NORMALS: Yes no CVA tenderness BLADDER/KIDNEY EXAM: Yes no CVA tenderness Back/Pelvis: COMMON NORMALS: no CVA tenderness and thoracic and lumbar spine normal to inspection Extremity: COMMON NORMALS: normal to inspection Neuro: COMMON NORMALS: patient oriented x3 and CN's II-XII intact bilaterally Psych: COMMON NORMALS: mental status grossly normal, Normal thought process present and cooperative THOUGHT PROCESS: Normal thought process present Skin: COMMON NORMALS: no rashes or lesions noted, turgor normal and no jaundice GENERAL SKIN EXAM: no rashes or lesions noted and turgor normal Course Vital Signs: Vital signs: Vital Signs Temperature 97.6 F 01/02/25 16:46 Pulse Rate 71 01/02/25 21:08 Respiratory Rate 25 H 01/02/25 21:08 Blood Pressure 120/90 01/02/25 21:08 Pulse Oximetry 96 01/02/25 21:08 Oxygen Delivery Me thod Room Air 01/02/25 20:12 MDM - SOB/Dyspnea Medical Decision Making Patient was given a DuoNeb treatment and 125 mg of Solu-Medrol IV. He did feel significantly better following the treatment. His blood sugar came back at 614. We gave him 16 units of regular insulin for that his blood sugar came down to 419. He was given a fluid bolus as well he appeared to be somewhat dehydrated. Likely secondary to the hyperglycemia. His CBC was normal. CMP revealed a sodium of 128 which is secondary to the hyperglycemia as well. His BUN is 29 creatinine of 1.3. BNP 7069. He tested negative for influenza, RSV and COVID. Patient appears to have an exacerbation of COPD along with hyperglycemia secondary to diabetes. He was discharged in stable condition with prescription for prednisone burst and taper. I recommended he use his nebulizer every 4 hours as needed. Recommended he use a sliding scale insulin to keep his blood sugar down. Recommended he follow-up with his primary care provider later this week for recheck. Lab Data 01/02/25 17:53 01/02/25 17:53 Labs/Radiology: Radiology Impressions Chest X-Ray 01/02/25 17:10 IMPRESSION: No acute intrathoracic process seen. No significant change from prior study. Laboratory Results WBC 10.36 10^3/uL (3.29-11.43) 01/02/25 17:53 RBC 4.85 10^6/uL (3.85-5.65) 01/02/25 17:53 Hgb 11.40 g/dL (11.27-16.99) 01/02/25 17:53 Hct 37.8 % (37-53) 01/02/25 17:53 MCV 77.9 fl (82-101) L 01/02/25 17:53 MCH 23.5 pg (27-33) L 01/02/25 17:53 MCHC 30.2 g/dL (30-55) 01/02/25 17:53 RDW 19.6 % (12.1-15.1) H 01/02/25 17:53 Plt Count 277 10^3/cmm (157-399) 01/02/25 17:53 MPV 10.6 fL (7.4-10.4) H 01/02/25 17:53 Neut % (Auto) 82.4 % 01/02/25 17:53 Lymph % (Auto) 8.2 % 01/02/25 17:53 [place] % (Auto) 8.1 % 01/02/25 17:53 Eos % (Auto) 0.2 % 01/02/25 17:53 Baso % (Auto) 0.0 % 01/02/25 17:53 Neut # (Auto) 8.54 10^3/uL (1.8-7.7) H 01/02/25 17:53 Lymph # (Auto) 0.9 10^3/uL (0.8-4.8) 01/02/25 17:53 [place] # (Auto) 0.8 10^3/uL (0.2-0.9) 01/02/25 17:53 Eos # (Auto) 0.0 10^3/uL (0.0-0.8) 01/02/25 17:53 Baso # (Auto) 0.0 10^3/uL (0.0-0.1) 01/02/25 17:53 Nucleated RBC % (auto) 0 % 01/02/25 17:53 Nucleated RBCs # 0.0 /100WBC 01/02/25 17:53 Sodium 128 mmol/L (136-145) L 01/02/25 17:53 Potassium 4.8 mmol/L (3.5-5.1) 01/02/25 17:53 Chloride 92 mmol/L (98-107) L 01/02/25 17:53 Carbon Dioxide 24 mmol/L (22-29) 01/02/25 17:53 Anion Gap 16.8 (5-19) 01/02/25 17:53 BUN 29 mg/dL (8-23) H 01/02/25 17:53 Creatinine 1.3 mg/dL (0.7-1.2) H 01/02/25 17:53 GFR Calculation 55.6 mL/min (90-130) L 01/02/25 17:53 Glucose 614 mg/dL (65-115) H* 01/02/25 17:53 POC Glucose 419 mg/dL (70-110) H 01/02/25 20:14 Calculated Osmolality 300 mOsm/kg (285-295) H 01/02/25 17:53 Calcium 8.9 mg/dL (8.5-10.5) 01/02/25 17:53 Total Bilirubin 1.2 mg/dL (0.15-1.2) 01/02/25 17:53 AST 15 U/L (0-40) 01/02/25 17:53 ALT 25 U/L (0-41) 01/02/25 17:53 Alkaline Phosphatase 175 U/L (40-130) H 01/02/25 17:53 NT-Pro-B Natriuret Pep 7069 pg/mL (0-125) H 01/02/25 17:53 Total Protein 6.0 g/dL (6.6-8.7) L 01/02/25 17:53 Albumin 3.6 g/dL (3.5-5.2) 01/02/25 17:53 Globulin 2.4 g/dL (1.3-4.6) 01/02/25 17:53 Influenza A (PCR) Negative (Negative) 01/02/25 18:30 Influenza Type B (PCR) Negative (Negative) 01/02/25 18:30 RSV (PCR) Negative (Negative) 01/02/25 18:30 SARS-CoV-2 (PCR) Negative (Negative) 01/02/25 18:30 All radiology interpretation(s) finalized by discharge Discharge Plan Discharge Patient Disposition: Home Clinical Impression: Hyperglycemia COPD (chronic obstructive pulmonary disease) Qualifiers: COPD type: COPD with acute exacerbation Qualified Code(s): J44.1 - Chronic obstructive pulmonary disease with (acute) exacerbation Condition: Stable Prescriptions: New prednisone 5 mg tablets,dose pack See Rx Instructions PO .COMPLEX Qty: 21 0RF Rx Instructions: prednisone 5 mg: take 8 tablets (40 mg) on Day 1; 7 tablets (35 mg) on Day 2; then decrease by 1 tablet every day until finished No Action albuterol sulfate 2.5 mg /3 mL (0.083 %) solution for nebulization 2.5 mg inhalation QID PRN (Reason: shortness of breath or wheezing) Qty: 180 5RF albuterol sulfate 90 mcg/actuation HFA aerosol inhaler 2 inh INHALATION Q6H PRN (Reason: Shortness Of Breath) Qty: 8.5 2RF (DME) blood-glucose meter Misc See Rx Instructions .MEDSUPPLY Qty: 1 0RF Rx Instructions: Use as directed for checking blood sugar twice daily (DME) Blood Glucose Test Strip See Rx Instructions .MEDSUPPLY Qty: 200 12RF Rx Instructions: Use as directed with glucometer to check blood sugar twice daily (DME) lancets Misc See Rx Instructions .MEDSUPPLY Qty: 200 12RF Rx Instructions: Use as directed to prick skin for blood sugar checks twice daily sertraline 100 mg tablet 100 mg PO QAM Qty: 30 2RF ropinirole 1 mg tablet 1 mg PO BID Qty: 60 2RF (DME) nebulizer machine with tubing and mask See Rx Instructions .Route .MEDSUPPLY Qty: 1 0RF Rx Instructions: As directed apixaban 2.5 mg tablet 2.5 mg PO BID 90 Days Qty: 180 1RF budesonide-formoterol [Symbicort] 160-4.5 mcg/actuation HFA aerosol inhaler 2 puff inhalation BID Qty: 10.2 0RF (DME) nebulizer hosing and delivery device See Rx Instructions .Route .MEDSUPPLY Qty: 1 12RF Rx Instructions: As directed (DME) Standard Cpap Device See Rx Instructions .Route Qty: 1 0RF Rx Instructions: As directed WITH SUPPLIES insulin glargine [Lantus Solostar U-100 Insulin] 100 unit/mL (3 mL) insulin pen 30 unit SUBCUT BEDTIME Qty: 15 2RF spironolactone 25 mg tablet 25 mg PO DAILY Qty: 90 1RF metoprolol succinate 25 mg tablet extended release 24 hr 25 mg PO DAILY Qty: 30 0RF potassium citrate 10 mEq (1,080 mg) tablet extended release 20 meq PO BID allopurinol 300 mg tablet 300 mg PO QAM levocetirizine 5 mg tablet 5 mg PO DAILY amiodarone [Pacerone] 200 mg Tablet 200 mg PO DAILY Qty: 60 3RF fluticasone propionate [Flonase Allergy Relief] 50 mcg/actuation spray,suspension 2 spray intranasal DAILY PRN (Reason: Allergy Symptoms) Rx Instructions: administer into each nostril carvedilol 12.5 mg tablet 25 mg PO BID cefadroxil 500 mg capsule 500 mg PO BID pantoprazole 40 mg tablet,delayed release (DR/EC) 40 mg PO BID bumetanide 1 mg tablet 1 mg PO BID rosuvastatin 40 mg tablet 40 mg PO BEDTIME dapagliflozin propanediol [Farxiga] 10 mg tablet 10 mg PO DAILY Discharge Orders: Discharge ED (Routine); Ordered 01/02/25 Ordered By: Erik Lee Referrals: Lucrecia Blandon, ANDRES [Primary Care Provider] - Patient Instructions: COPD, Diabetic Hyperglycemia (ED) Activity Restrictions/Additional Instructions: Use your home nebulizer every 4 hours as needed. Use a sliding scale insulin. Follow-up with your primary care provider later this week for recheck. 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
== END 2025-01-02 21:09 | disposition home or self-care (01) ==
PROVIDERS: Emergency Provider Emergency Medicine; PCP Nurse Practitioner Family
DX: J44.1 Chronic obstructive pulmonary disease with (acute) exacerbation (principal); Z95.0 Presence of cardiac pacemaker; Z86.73 Personal history of transient ischemic attack (TIA), and cerebral infarction without residual deficits; E11.65 Type 2 diabetes mellitus with hyperglycemia; Z11.52 Encounter for screening for COVID-19; Z79.4 Long term (current) use of insulin
CPT/HCPCS: 36415; 36416; 71045; 80053; 82962; 83880; 85025; 87637; 93005; 94640; 96361; 96374; 96375; 99285; J1815; J2919; J7030

== ENCOUNTER 2025-01-04 09:08 | Outpatient (CLI) | payer MEDICAID, SELFPAY ==
[2024-06-22 09:22] VITALS: BP 110/74; BMI 36.6
--- NOTE | 2025-01-04 09:14 | CT_ITS ---
WS: [id number] CT CHEST CT-HIGH RESOLUTION, NONCONTRAST. HISTORY: Interstitial lung disease. Technique: High-resolution chest CT is performed in inspiration, expiration, supine and prone positioning. All CT scans at [facility] use at least one of these dose optimization techniques: automated exposure control; mA and/or kV adjustment per patient size (includes targeted exams where dose is matched to clinical indication); or iterative reconstruction. DLP: 1860.62 mGy.cm COMPARISON: 05/30/2024 CT chest and abdomen., CT abdomen 03/07/2024 Findings: Prior RIGHT subclavian pacer defibrillator. Lungs are well expanded. LEFT lower lobe hazy attenuation. Slight improvement in the hazy attenuation with prone positioning suggest there may be a component of atelectasis. Hazy attenuation disc completely resolved. During expiration no mosaic attenuation. There is no honeycombing or bronchiectasis. Heart is markedly enlarged. Mild atherosclerosis aorta. Normal size pulmonary artery. Dense coronary artery calcifications. No pericardial or pleural effusions. On this unenhanced exam no adenopathy is identified of any significance. No pericardial or pleural effusions. Reidentified is a low-attenuation mass in the central spleen measuring 3.0 x 2.7 cm. This splenic lesion has decreased in size since 03/07/2024. This may be the result of a splenic resolving infarct or from prior trauma. Configuration of the spleen suggest this is probably from a prior infarct as the spleen is become lobulated in shape and smaller caliber. No adrenal mass. Mild hazy attenuation in the RIGHT lobe of the liver cannot be further evaluated. Similar findings on 03/07/2024. May be related to hepatic steatosis with areas of sparing. Mild increase in thoracic kyphosis. CT/CT chest wo con [id number] Impression: 1. No bronchiectasis or honeycombing. No evidence for UIP. 2. Mild hazy attenuation at the LEFT lung base. This is an area of a prior pne umonia. This may be the residual of pneumonia or an area of mild pneumonitis. C onsider hypersensitivity pneumonitis. 3. Marked enlarged heart. 4. Low-attenuation mass in the central spleen has decreased in size. Spleen is decreased in size with a lobular configuration. The initial splenic abnormalit y was probably an infarct which is resolving over time.
== END 2025-01-04 09:09 | disposition home or self-care (01) ==
PROVIDERS: PCP Nurse Practitioner Family; Visit Provider Student in an Organized Health Care Education/Training Program
DX: J98.4 Other disorders of lung (principal); R06.09 Other forms of dyspnea; R91.8 Other nonspecific abnormal finding of lung field; I51.7 Cardiomegaly; D73.89 Other diseases of spleen; Z96.89 Presence of other specified functional implants; I70.0 Atherosclerosis of aorta; I25.10 Atherosclerotic heart disease of native coronary artery without angina pectoris; R93.2 Abnormal findings on diagnostic imaging of liver and biliary tract; M40.294 Other kyphosis, thoracic region
CPT/HCPCS: 71250

== ENCOUNTER 2025-01-04 18:50 | Emergency (ER) | payer MEDICAID, SELFPAY ==
[2024-06-22 09:22] VITALS: BP 110/74; BMI 36.6
[2025-01-04 19:18] VITALS: BP 112/72; PULSE 70; RESP 18; TEMP 36.4; O2SAT 98
[2025-01-04 19:26] LABS: Glucose Point of Care > 600 mg/dL (70-110)
--- NOTE | 2025-01-04 20:47 | PC.NURSE ---
BG : [id number]
--- NOTE | 2025-01-04 20:47 | W.ED.RECABL ---
HPI - Recheck/Abnormal Lab/Rx General: Chief Complaint: Recheck/Abnormal Lab/Rx Stated Complaint: juan miguel blood sugar Time Seen by Provider: 01/04/25 20:23 Source: patient Mode of arrival: ambulatory Limitations: no limitations History of Present Illness: 64-year-old male history of diabetes he is on insulin he states that his blood sugars been running high over the last 2 days states he recently started steroids for COPD. He states that today's blood meter read high he states he had no vomiting no diarrhea states he is felt at his baseline besides some slight fatigue. Denies any pain anywhere fever Related Data Home Medications ?Medication ?Instructions ?Recorded ?Confirmed fluticasone propionate 50 2 spray intranasal DAILY PRN 08/17/23 12/27/24 mcg/actuation nasal Allergy Symptoms spray,suspension (Flonase Allergy Relief) allopurinol 300 mg tablet 300 mg PO QAM 08/17/24 12/27/24 levocetirizine 5 mg tablet 5 mg PO DAILY 08/17/24 12/27/24 potassium citrate 10 mEq (1,080 20 meq PO BID 08/17/24 12/27/24 mg) tablet,extended release bumetanide 1 mg tablet 1 mg PO BID 12/22/24 12/27/24 carvedilol 12.5 mg tablet 25 mg PO BID 12/22/24 12/27/24 cefadroxil 500 mg capsule 500 mg PO BID 12/22/24 12/27/24 dapagliflozin propanediol 10 mg 10 mg PO DAILY 12/22/24 12/27/24 tablet (Farxiga) pantoprazole 40 mg tablet,delayed 40 mg PO BID 12/22/24 12/27/24 release rosuvastatin 40 mg tablet 40 mg PO BEDTIME 12/22/24 12/27/24 Previous Rx's ?Medication ?Instructions ?Recorded nebulizer machine with tubing and #1 ea 09/09/22 mask CPAP (Standard Cpap) #1 ea 04/09/24 albuterol sulfate 2.5 mg/3 mL 2.5 mg (3 mL) inhalation QID PRN 06/03/24 (0.083 %) solution for nebulization shortness of breath or wheezing #180 mL albuterol sulfate 90 mcg/actuation 2 inh inhalation Q6H PRN Shortness 06/03/24 aerosol inhaler Of Breath #8.5 grams insulin glargine 100 unit/mL (3 30 unit (0.3 mL) SUBCUT BEDTIME 06/28/24 mL) subcutaneous pen (Lantus #15 mL Solostar U-100 Insulin) blood sugar diagnostic (Blood #200 08/05/24 Glucose Test strips) blood-glucose meter #1 ea 08/05/24 lancets #200 08/05/24 apixaban 2.5 mg tablet 2.5 mg PO BID 90 days #180 tabs 08/31/24 budesonide-formoterol HFA 160 2 puff inhalation BID #10.2 grams 09/22/24 mcg-4.5 mcg/actuation aerosol inhaler (Symbicort) nebulizer hosing and delivery #1 09/22/24 device amiodarone 200 mg tablet (Pacerone) 200 mg PO DAILY #60 tabs 10/09/24 spironolactone 25 mg tablet 25 mg PO DAILY #90 tabs 10/29/24 metoprolol succinate 25 mg 25 mg PO DAILY #30 tabs 11/11/24 tablet,extended release 24 hr sertraline 100 mg tablet 100 mg PO QAM #30 tabs 11/25/24 ropinirole 1 mg tablet 1 mg PO BID #60 tabs 12/13/24 prednisone 5 mg tablets in a dose See Rx Instructions PO .COMPLEX 01/02/25 pack #21 ea Allergies Allergy/AdvReac Type Severity Reaction Status Date / Time isosorbide Allergy unknown Verified 01/04/25 19:22 Penicillins AdvReac rash Verified 01/04/25 19:22 Review of Systems Const: Reports: fatigue; Denies: fever(s), chills, body aches or change in appetite Eyes: Denies: blurry vision or eye discomfort ENMT: Denies: throat pain or dental pain Card: Denies: chest pain Resp: Denies: dyspnea GI: Denies: abdominal pain, nausea, vomiting or diarrhea : Denies: dysuria Musc: Denies: neck pain or back pain Skin/Breast: Denies: rash Neuro: Denies: headache(s) PFSH ED PFSH: Medical History Endocarditis pacemaker lead infection. 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 [place], 07/11/2020 Mixed hyperlipidemia Hypertension CVA (cerebral vascular accident) PVCs (premature ventricular contractions) Hypomagnesemia Infarction of spleen Nausea & vomiting Gastroparesis Major depressive disorder, recurrent episode, mild degree Major depressive disorder in partial remission Allergic rhinitis Bipolar II disorder Diabetes Non-ST elevation [place] (NSTEMI) Uses bilevel positive airway pressure (BPAP) ventilation at home 12/8cm Dysarthria Unstable angina Nonischemic congestive cardiomyopathy Chronic low back pain Elevated blood uric acid level [facility] study 2017 [facility]: Optimal pressure settings with BiPAP found to be 12/8 cm COVID-19 Wound infection following procedure infection with defibrillator lead revision, removed , scarring left subclavian area from this GERD (gastroesophageal reflux disease) ALBERTO (obstructive sleep apnea) C. difficile diarrhea Cataracts, bilateral CHF (congestive heart failure) Urolithiasis Multi stone former, calcium oxalate mono and dihydrate. Also calcium phosphate. Multiple interventions including endoscopy with laser lithotripsy and ESWL. Metabolic treatment with potassium citrate Hemorrhoids Psychiatric care Right ureteral calculus Osteoarthritis of hands, bilateral Pacemaker Surgical History S/P epidural steroid injection Status post hemorrhoidectomy Hx of umbilical hernia repair Hx of lithotripsy History of urethral stent H/O esophagogastroduodenoscopy (02/27/21) gastritis, duodenitis History of colonoscopy (02/27/21) descending colon polyp, hemorrhoids History of carpal tunnel release of both wrists History of permanent cardiac pacemaker placement Hx of cataract surgery Hx of shoulder surgery Family History Grandfather CAD (coronary artery disease) Brother Cancer colon cancer Diabetes Mother Diabetes Father No problems noted. Other Hypertension Rheumatoid arthritis Social History Smoking and tobacco/nicotine status: never used tobacco/nicotine Second hand smoke exposure: No Alcohol intake: former Year of sobriety/quit date alcohol: 1997 Substance/Drug Use: former Date of last use: 1997 Caregiver/support person: Yes Lives independently: Yes Household members: spouse Marital status: service: No Current occupational status: disabled Current gender identity: Male Special fernando needs: No Agree to transfusion: Yes Physical Exam Const: COMMON NORMALS: no acute distress, patient oriented x3 and healthy appearing HENMT: COMMON NORMALS: normocephalic and atraumatic HEAD & SCALP: normocephalic and atraumatic Eye: COMMON NORMALS: conjunctivae normal CONJUNCTIVA: Yes conjunctivae normal Neck/C-Spine: COMMON NORMALS: full ROM and supple Chest: COMMONS NORMALS: normal inspection of the chest Resp: COMMON NORMALS: normal respiratory effort, No retractions, No use of accessory muscles and clear to auscultation bilaterally AUSCULTATION: clear to auscultation bilaterally Cardio: COMMON NORMALS: regular rate, regular rhythm and No murmurs present (Cardio) RATE: regular rate RHYTHM: regular rhythm Extremity: COMMON NORMALS: normal to inspection and full ROM Neuro: COMMON NORMALS: patient oriented x3, moves all extremities and no focal motor deficits Psych: COMMON NORMALS: mental status grossly normal, Normal thought process present and cooperative THOUGHT PROCESS: Normal thought process present Skin: COMMON NORMALS: no rashes or lesions noted and no wounds GENERAL SKIN EXAM: no rashes or lesions noted Course Vital Signs: Vital signs: Vital Signs Temperature 97.5 F L 01/04/25 19:18 Pulse Rate 70 01/04/25 19:18 Respiratory Rate 18 01/04/25 19:18 Blood Pressure 112/72 01/04/25 19:18 Pulse Oximetry 98 01/04/25 19:18 Oxygen Delivery Me thod Room Air 01/04/25 19:18 MDM - Recheck/Abnormal Lab/Rx Medical Decision Making Patient presents with hyperglycemia he is not DKA blood sugar here has improved still is a 42 he states he wants to go home and go to bed he states he had appoint with his PCP in the morning he is to follow-up as scheduled return if worsening. Medical Records I reviewed the patient's medical records. Lab Data I reviewed the patient's lab results. 01/04/25 20:40 01/04/25 20:40 Laboratory Results WBC 14.49 10^3/uL (3.29-11.43) H 01/04/25 20:40 RBC 5.04 10^6/uL (3.85-5.65) 01/04/25 20:40 Hgb 12.10 g/dL (11.27-16.99) 01/04/25 20:40 Hct 39.0 % (37-53) 01/04/25 20:40 MCV 77.4 fl (82-101) L 01/04/25 20:40 MCH 24.0 pg (27-33) L 01/04/25 20:40 MCHC 31.0 g/dL (30-55) 01/04/25 20:40 RDW 19.9 % (12.1-15.1) H 01/04/25 20:40 Plt Count 306 10^3/cmm (157-399) 01/04/25 20:40 MPV 11.1 fL (7.4-10.4) H 01/04/25 20:40 Neut % (Auto) 88.5 % 01/04/25 20:40 Lymph % (Auto) 4.9 % 01/04/25 20:40 [place] % (Auto) 5.7 % 01/04/25 20:40 Eos % (Auto) 0.0 % 01/04/25 20:40 Baso % (Auto) 0.1 % 01/04/25 20:40 Neut # (Auto) 12.83 10^3/uL (1.8-7.7) H 01/04/25 20:40 Lymph # (Auto) 0.7 10^3/uL (0.8-4.8) L 01/04/25 20:40 [place] # (Auto) 0.8 10^3/uL (0.2-0.9) 01/04/25 20:40 Eos # (Auto) 0.0 10^3/uL (0.0-0.8) 01/04/25 20:40 Baso # (Auto) 0.0 10^3/uL (0.0-0.1) 01/04/25 20:40 Nucleated RBC % (auto) 0 % 01/04/25 20:40 Nucleated RBCs # 0.0 /100WBC 01/04/25 20:40 Sodium 130 mmol/L (136-145) L 01/04/25 20:40 Potassium 4.8 mmol/L (3.5-5.1) 01/04/25 20:40 Chloride 92 mmol/L (98-107) L 01/04/25 20:40 Carbon Dioxide 26 mmol/L (22-29) 01/04/25 20:40 Anion Gap 16.8 (5-19) 01/04/25 20:40 BUN 39 mg/dL (8-23) H 01/04/25 20:40 Creatinine 1.4 mg/dL (0.7-1.2) H 01/04/25 20:40 GFR Calculation 51.0 mL/min (90-130) L 01/04/25 20:40 Glucose 638 mg/dL (65-115) H* 01/04/25 20:40 POC Glucose 446 mg/dL (70-110) H 01/04/25 22:06 Calculated Osmolality 309 mOsm/kg (285-295) H 01/04/25 20:40 Calcium 9.3 mg/dL (8.5-10.5) 01/04/25 20:40 Total Bilirubin 1.1 mg/dL (0.15-1.2) 01/04/25 20:40 AST 20 U/L (0-40) 01/04/25 20:40 ALT 29 U/L (0-41) 01/04/25 20:40 Alkaline Phosphatase 184 U/L (40-130) H 01/04/25 20:40 Total Protein 6.6 g/dL (6.6-8.7) 01/04/25 20:40 Albumin 3.7 g/dL (3.5-5.2) 01/04/25 20:40 Globulin 2.9 g/dL (1.3-4.6) 01/04/25 20:40 No radiology studies performed this visit Discharge Plan Discharge Patient Disposition: Home Clinical Impression: Hyperglycemia Condition: Stable Prescriptions: No Action albuterol sulfate 2.5 mg /3 mL (0.083 %) solution for nebulization 2.5 mg inhalation QID PRN (Reason: shortness of breath or wheezing) Qty: 180 5RF albuterol sulfate 90 mcg/actuation HFA aerosol inhaler 2 inh INHALATION Q6H PRN (Reason: Shortness Of Breath) Qty: 8.5 2RF (DME) blood-glucose meter Misc See Rx Instructions .MEDSUPPLY Qty: 1 0RF Rx Instructions: Use as directed for checking blood sugar twice daily (DME) Blood Glucose Test Strip See Rx Instructions .MEDSUPPLY Qty: 200 12RF Rx Instructions: Use as directed with glucometer to check blood sugar twice daily (DME) lancets Misc See Rx Instructions .MEDSUPPLY Qty: 200 12RF Rx Instructions: Use as directed to prick skin for blood sugar checks twice daily sertraline 100 mg tablet 100 mg PO QAM Qty: 30 2RF ropinirole 1 mg tablet 1 mg PO BID Qty: 60 2RF (DME) nebulizer machine with tubing and mask See Rx Instructions .Route .MEDSUPPLY Qty: 1 0RF Rx Instructions: As directed apixaban 2.5 mg tablet 2.5 mg PO BID 90 Days Qty: 180 1RF budesonide-formoterol [Symbicort] 160-4.5 mcg/actuation HFA aerosol inhaler 2 puff inhalation BID Qty: 10.2 0RF (DME) nebulizer hosing and delivery device See Rx Instructions .Route .MEDSUPPLY Qty: 1 12RF Rx Instructions: As directed (DME) Standard Cpap Device See Rx Instructions .Route Qty: 1 0RF Rx Instructions: As directed WITH SUPPLIES insulin glargine [Lantus Solostar U-100 Insulin] 100 unit/mL (3 mL) insulin pen 30 unit SUBCUT BEDTIME Qty: 15 2RF spironolactone 25 mg tablet 25 mg PO DAILY Qty: 90 1RF metoprolol succinate 25 mg tablet extended release 24 hr 25 mg PO DAILY Qty: 30 0RF potassium citrate 10 mEq (1,080 mg) tablet extended release 20 meq PO BID allopurinol 300 mg tablet 300 mg PO QAM levocetirizine 5 mg tablet 5 mg PO DAILY amiodarone [Pacerone] 200 mg Tablet 200 mg PO DAILY Qty: 60 3RF fluticasone propionate [Flonase Allergy Relief] 50 mcg/actuation spray,suspension 2 spray intranasal DAILY PRN (Reason: Allergy Symptoms) Rx Instructions: administer into each nostril carvedilol 12.5 mg tablet 25 mg PO BID cefadroxil 500 mg capsule 500 mg PO BID pantoprazole 40 mg tablet,delayed release (DR/EC) 40 mg PO BID bumetanide 1 mg tablet 1 mg PO BID rosuvastatin 40 mg tablet 40 mg PO BEDTIME dapagliflozin propanediol [Farxiga] 10 mg tablet 10 mg PO DAILY prednisone 5 mg tablets,dose pack See Rx Instructions PO .COMPLEX Qty: 21 0RF Rx Instructions: prednisone 5 mg: take 8 tablets (40 mg) on Day 1; 7 tablets (35 mg) on Day 2; then decrease by 1 tablet every day until finished Discharge Orders: Discharge ED (Routine); Ordered 01/04/25 Ordered By: Gurvinder Felton Referrals: Lucrecia Blandon FNP [Primary Care Provider] - 4-7 days Discharge Diet: Advance as tolerated Discharge Activity: Resume usual activity Patient Instructions: Diabetic Hyperglycemia (ED) Print Language: Turkmen Coding Level of Care Code 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
[2025-01-04 20:49] LABS: Glucose Point of Care 576 mg/dL (70-110)
[2025-01-04 20:53] LABS: Basophils % 0.1 %; Lymphocytes # 0.7 10^3/uL (0.8-4.8); Lymphocytes % 4.9 %; Mean Corpuscular Volume 77.4 fl (82-101); Mean Platelet Volume 11.1 fL (7.4-10.4); Monocytes # 0.8 10^3/uL (0.2-0.9); Monocytes % 5.7 %; Neutrophils # 12.83 10^3/uL (1.8-7.7); Neutrophils % 88.5 %; Nucleated Red Blood Cells % 0 %; Platelet Count 306 10^3/cmm (157-399); Red Blood Count 5.04 10^6/uL (3.85-5.65); Red Cell Distribution Width 19.9 % (12.1-15.1); White Blood Count 14.49 10^3/uL (3.29-11.43)
[2025-01-04] MEDS: insulin regular-human 100 units/1 mL 14 UNIT IVP (21:00)
[2025-01-04] MEDS: sodium chloride 0.9% 1,000 ML 999 ML IV (21:01)
[2025-01-04 21:11] LABS: Alanine Aminotransferase 29 U/L (0-41); Albumin Level 3.7 g/dL (3.5-5.2); Alkaline Phosphatase 184 U/L (40-130); Anion Gap 16.8 (5-19); Aspartate Amino Transferase 20 U/L (0-40); Blood Urea Nitrogen 39 mg/dL (8-23); Calcium 9.3 mg/dL (8.5-10.5); Carbon Dioxide 26 mmol/L (22-29); Chloride 92 mmol/L (98-107); Creatinine Clr Calc Pharmacy 60.6528; Globulin 2.9 g/dL (1.3-4.6); Osmolality Calculated 309 mOsm/kg (285-295); Potassium 4.8 mmol/L (3.5-5.1); Sodium 130 mmol/L (136-145); Total Bilirubin 1.1 mg/dL (0.15-1.2); Total Protein 6.6 g/dL (6.6-8.7)
[2025-01-04 21:13] LABS: Glucose 638 mg/dL (65-115)
[2025-01-04 21:40] LABS: Glucose Point of Care 526 mg/dL (70-110)
[2025-01-04 22:09] LABS: Glucose Point of Care 446 mg/dL (70-110)
[2025-01-04] MEDS: insulin regular-human 100 units/1 mL 12 UNIT IVP (22:10)
[2025-01-04 22:31] LABS: Glucose Point of Care 482 mg/dL (70-110)
--- NOTE | 2025-01-04 22:31 | PC.NURSE ---
bg 432
[2025-01-04 22:52] VITALS: BP 118/79; PULSE 72; O2SAT 97
[2025-01-04 23:33] VITALS: BP 95/68; PULSE 71; RESP 16; O2SAT 99
== END 2025-01-04 23:00 | disposition home or self-care (01) ==
PROVIDERS: Emergency Provider Emergency Medicine; PCP Nurse Practitioner Family
DX: E11.65 Type 2 diabetes mellitus with hyperglycemia (principal); Z95.0 Presence of cardiac pacemaker; I11.0 Hypertensive heart disease with heart failure; I50.9 Heart failure, unspecified; Z86.73 Personal history of transient ischemic attack (TIA), and cerebral infarction without residual deficits; E78.2 Mixed hyperlipidemia; J44.9 Chronic obstructive pulmonary disease, unspecified; Z79.4 Long term (current) use of insulin
CPT/HCPCS: 36415; 36416; 80053; 82962; 85025; 96361; 96374; 96375; 99284; J1815; J7030

== ENCOUNTER → 2025-01-05 07:58 | Outpatient (BNVA) | payer MEDICAID, SELFPAY ==
[2025-01-05 11:34] VITALS: BP 100/60; BMI 39.6
== END ==
PROVIDERS: Family Provider Nurse Practitioner Family; PCP Nurse Practitioner Family; Visit Provider Nurse Practitioner Family
DX: R73.9 Hyperglycemia, unspecified (principal); E11.69 Type 2 diabetes mellitus with other specified complication; J44.1 Chronic obstructive pulmonary disease with (acute) exacerbation
CPT/HCPCS: 80061; 83036

== ENCOUNTER → 2025-01-12 09:37 | Outpatient (BNVA) | payer MEDICAID, SELFPAY ==
[2025-01-05 11:34] VITALS: BP 100/60; BMI 39.6
== END ==
PROVIDERS: PCP Nurse Practitioner Family; Visit Provider Nurse Practitioner Family
DX: E11.69 Type 2 diabetes mellitus with other specified complication (principal); R13.10 Dysphagia, unspecified
CPT/HCPCS: 80053; 85025

== ENCOUNTER 2025-02-14 11:17 | Outpatient (CLI) | payer MEDICAID, SELFPAY ==
[2025-01-05 11:34] VITALS: BP 100/60; BMI 39.6
--- NOTE | 2025-02-14 11:23 | XR_ITS ---
WS: [id number] Exam: XR chest 2V* [id number] Date/Time of Exam: 02/14/2025 11:35 AM Reason For Exam: preop, increased edema sob in setting of HFrEF Comparison 01/02/2025. The lungs are fully inflated and clear. Mild cardiac enlargement unchanged. No pleural effusions. Bony structures are intact. A cardiac pacer superimposes the RIGHT chest. XR/XR chest 2V* [id number] IMPRESSION: 1. Cardiac enlargement unchanged. No acute finding.
== END 2025-02-14 11:18 | disposition home or self-care (01) ==
PROVIDERS: PCP Nurse Practitioner Family; Visit Provider Family Medicine
DX: I50.43 Acute on chronic combined systolic (congestive) and diastolic (congestive) heart failure (principal); I51.7 Cardiomegaly; Z96.89 Presence of other specified functional implants
CPT/HCPCS: 71046

== ENCOUNTER 2025-02-15 10:38 | Day surgery (SDC) | payer MEDICAID, SELFPAY ==
[2025-01-05 11:34] VITALS: BP 100/60; BMI 39.6
[2025-02-15 10:58] VITALS: BP 130/87; PULSE 85; RESP 18; TEMP 36.2; O2SAT 99; BMI 38.9
[2025-02-15] MEDS: sodium chloride 0.9% 250 ML 30 ML IV (11:11)
[2025-02-15 11:15] LABS: Glucose Point of Care 103 mg/dL (70-110)
--- NOTE | 2025-02-15 11:24 | ANES.PREANE2 ---
Pre-Anesthetic Assessment Height/Weight: Height 5 ft 5 in Weight 234 lb Temp Pulse Resp BP Pulse Ox O2 Del Method 97.1 F L 85 18 130/87 99 Room Air 02/15/25 10:58 02/15/25 10:58 02/15/25 10:58 02/15/25 10:58 02/15/25 10:58 02/15/25 10:58 Preop Diagnosis: GERD Operation Date: 02/15/25 11:15 Proposed Procedures p EGD 40356 R13.10(Not Applicable) - Jose Sheridan MD Was Beta Radha taken within 24 hours: Yes Was Clonidine taken within 24 hours: N/A Last intake: Intake Last Liquid Date 02/14/25 Last Liquid Time 23:50 Last Solid Date 02/14/25 Last Solid Time 19:30 Social No alcohol and No tobacco Exam alert, oriented x 3, clear to auscultation bilaterally and regular rate & rhythm Airway Submandibular: within normal limits Cervical ROM: within normal limits Mallampati: Class III Comments: Comments: Edentulous Anesthetic Plan ASA status: 4 Anesthesia: MAC Other: No prior issues with anesthesia NPO since yesterday History of GERD, on Protonix COPD Hypertension on spironolactone, metoprolol and carvedilol Prior CVA in August, on chronic Eliquis. Last taken 02/14/2025 ALBERTO, wears CPAP Patient has pacemaker/ICD Labs from 01/12/2025 reviewed, NA 131 at that time Patient has severe CHF, echo in August 2024 showing EF 28% with PA pressures of 52 Medications/Allergies Home Medications ?Medication ?Instructions ?Recorded ?Confirmed ?Last Taken ?Type nebulizer machine with tubing and #1 ea 09/09/22 02/15/25 02/14/25 Rx mask fluticasone propionate 50 2 spray intranasal DAILY PRN 08/17/23 02/15/25 Unknown History mcg/actuation nasal Allergy Symptoms spray,suspension (Flonase Allergy Relief) CPAP (Standard Cpap) #1 ea 04/09/24 01/17/25 02/14/25 Rx albuterol sulfate 2.5 mg/3 mL 2.5 mg (3 mL) inhalation QID PRN 06/03/24 02/15/25 Unknown Rx (0.083 %) solution for nebulization shortness of breath or wheezing #180 mL albuterol sulfate 90 mcg/actuation 2 inh inhalation Q6H PRN Shortness 06/03/24 02/15/25 Unknown Rx aerosol inhaler Of Breath #8.5 grams blood-glucose meter #1 ea 08/05/24 01/17/25 Unknown Rx lancets #200 ea 08/05/24 01/17/25 02/14/25 Rx allopurinol 300 mg tablet 300 mg PO QAM 08/17/24 02/15/25 02/14/25 History apixaban 2.5 mg tablet 2.5 mg PO BID 90 days #180 tabs 08/31/24 02/15/25 02/14/25 Rx budesonide-formoterol HFA 160 2 puff inhalation BID #10.2 grams 09/22/24 02/15/25 Unknown Rx mcg-4.5 mcg/actuation aerosol inhaler (Symbicort) nebulizer hosing and delivery #1 ea 09/22/24 02/15/25 02/14/25 Rx device amiodarone 200 mg tablet (Pacerone) 200 mg PO DAILY #60 tabs 10/09/24 02/15/25 02/14/25 Rx spironolactone 25 mg tablet 25 mg PO DAILY #90 tabs 10/29/24 02/15/25 02/14/25 Rx metoprolol succinate 25 mg 25 mg PO DAILY #30 tabs 11/11/24 02/15/25 02/15/25 Rx tablet,extended release 24 hr sertraline 100 mg tablet 100 mg PO QAM #30 tabs 11/25/24 02/15/25 02/14/25 Rx ropinirole 1 mg tablet 1 mg PO BID #60 tabs 12/13/24 02/15/25 02/14/25 Rx carvedilol 12.5 mg tablet 25 mg PO BID 12/22/24 02/15/25 12/21/24 History dapagliflozin propanediol 10 mg 10 mg PO DAILY 12/22/24 02/15/25 02/14/25 History tablet (Farxiga) rosuvastatin 40 mg tablet 40 mg PO BEDTIME 12/22/24 02/15/25 02/14/25 History insulin aspart U-100 100 unit/mL See Rx Instructions SUBCUT TID #15 01/05/25 02/15/25 02/14/25 Rx (3 mL) subcutaneous pen (Novolog mL FlexPen U-100 Insulin aspart) blood sugar diagnostic (Blood #200 ea 01/12/25 01/17/25 Unknown Rx Glucose Test strips) blood-glucose meter,continuous #1 ea 01/12/25 01/17/25 Unknown Rx (FreeStyle Arturo 3 [place]) blood-glucose sensor (FreeStyle #1 ea 01/12/25 01/17/25 02/14/25 Rx Arturo 3 Plus Sensor device) insulin glargine 100 unit/mL (3 25 unit (0.25 mL) SUBCUT BID #15 mL 01/12/25 02/15/25 02/14/25 Rx mL) subcutaneous pen (Lantus Solostar U-100 Insulin) bumetanide 1 mg tablet 1 mg PO DAILY 02/10/25 02/15/25 02/14/25 History pantoprazole 40 mg tablet,delayed 40 mg PO DAILY 02/10/25 02/15/25 02/15/25 History release potassium citrate 10 mEq (1,080 20 meq PO BID 02/10/25 02/15/25 02/14/25 History mg) tablet,extended release Allergies Allergy/AdvReac Type Severity Reaction Status Date / Time isosorbide Allergy unknown Verified 02/15/25 10:56 Penicillins AdvReac rash Verified 02/15/25 10:56 Current Medications Generic Name Dose Route Start Last Admin Trade Name Freq PRN Reason Stop Dose Admin Sodium Chloride 250 mls @ 30 mls/hr 02/15/25 11:00 02/15/25 11:11 Sodium Chloride 0.9% IV 30 mls/hr .[id number] JOSHUA Administration PFS Anesthesia Medical History Endocarditis pacemaker lead infection. 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 [place], 07/11/2020 Mixed hyperlipidemia Hypertension CVA (cerebral vascular accident) PVCs (premature ventricular contractions) Hypomagnesemia Infarction of spleen Nausea & vomiting Gastroparesis Major depressive disorder, recurrent episode, mild degree Major depressive disorder in partial remission Allergic rhinitis Bipolar II disorder Diabetes Non-ST elevation [place] (NSTEMI) Uses bilevel positive airway pressure (BPAP) ventilation at home 12/8cm Dysarthria Unstable angina Nonischemic congestive cardiomyopathy Chronic low back pain Elevated blood uric acid level History of sleep study 2017 at [facility]: Optimal pressure settings with BiPAP found to be 12/8 cm COVID-19 Wound infection following procedure infection with defibrillator lead revision, removed , scarring left subclavian area from this GERD (gastroesophageal reflux disease) ALBERTO (obstructive sleep apnea) C. difficile diarrhea Cataracts, bilateral CHF (congestive heart failure) Urolithiasis Multi stone former, calcium oxalate mono and dihydrate. Also calcium phosphate. Multiple interventions including endoscopy with laser lithotripsy and ESWL. Metabolic treatment with potassium citrate Hemorrhoids Psychiatric care Right ureteral calculus Osteoarthritis of hands, bilateral Pacemaker Surgical History S/P epidural steroid injection Status post hemorrhoidectomy Hx of umbilical hernia repair Hx of lithotripsy History of urethral stent H/O esophagogastroduodenoscopy (02/27/21) gastritis, duodenitis History of colonoscopy (02/27/21) descending colon polyp, hemorrhoids History of carpal tunnel release of both wrists History of permanent cardiac pacemaker placement Hx of cataract surgery Hx of shoulder surgery Family History Grandfather CAD (coronary artery disease) Brother Cancer colon cancer Diabetes Mother Diabetes Father No problems noted. Other Hypertension Rheumatoid arthritis Social History Smoking and tobacco/nicotine status: never used tobacco/nicotine Second hand smoke exposure: No Alcohol intake: former Year of sobriety/quit date alcohol: 1997 Substance/Drug Use: former Date of last use: 1997 Caregiver/support person: Yes Lives independently: Yes Household members: spouse Marital status: service: No Current occupational status: disabled Current gender identity: Male Special fernando needs: No Agree to transfusion: Yes Data Anesthesia Cardiac Studies: Echocardiogram 08/17/24 Echocardiogram Limited Views 05/30/24 Echocardiogram Ultrasound 03/08/24 Transesophageal Echocardiogram 03/10/24 Sestamibi Stress Test (Cardiology) 06/20/23
--- NOTE | 2025-02-15 13:36 | W.PM.OPSUD ---
Surgery/Procedure H&P Update DATE OF PROCEDURE: February 15, 2025 DATE H&P PERFORMED: 01/17/25 H&P UPDATE INFORMATION: I have reviewed H&P completed within last 30 days, I have examined patient prior to procedure and No changes to prior documentation PREOP DIAGNOSIS: GERD PLANNED PROCEDURE: Operation Date: 02/15/25 11:15 Proposed Procedures p EGD 29740 R13.10(Not Applicable) - Jose Sheridan MD
[2025-02-15] MEDS: sodium chloride 0.9% 1,000 ML 15 ML IV (13:44)
[2025-02-15 13:55] VITALS: BP 111/81; PULSE 86; RESP 16; TEMP 36.2; O2SAT 96
[2025-02-15 14:09] VITALS: BP 116/98; PULSE 88; RESP 18; O2SAT 93
[2025-02-15 14:26] VITALS: BP 119/88; PULSE 79; RESP 16; O2SAT 99
== END 2025-02-15 15:00 | disposition home or self-care (01) ==
PROVIDERS: PCP Nurse Practitioner Family; Visit Provider Student in an Organized Health Care Education/Training Program
PROC: 0DJ08ZZ Inspection of Upper Intestinal Tract, Via Natural or Artificial Opening Endoscopic (ICD-10-PCS; principal; 2025-02-15 11:15)
DX: K29.50 Unspecified chronic gastritis without bleeding (principal); G47.33 Obstructive sleep apnea (adult) (pediatric); Z79.899 Other long term (current) drug therapy; J44.9 Chronic obstructive pulmonary disease, unspecified; I11.0 Hypertensive heart disease with heart failure; E78.2 Mixed hyperlipidemia; I50.9 Heart failure, unspecified; Z95.0 Presence of cardiac pacemaker; I25.10 Atherosclerotic heart disease of native coronary artery without angina pectoris; E11.9 Type 2 diabetes mellitus without complications; Z79.01 Long term (current) use of anticoagulants; Z86.73 Personal history of transient ischemic attack (TIA), and cerebral infarction without residual deficits; Z79.4 Long term (current) use of insulin; K21.9 Gastro-esophageal reflux disease without esophagitis; Z80.0 Family history of malignant neoplasm of digestive organs
CPT/HCPCS: 36416; 43239; 82962; 88305; J2704; J7030; J7050; J9999

== ENCOUNTER 2025-02-19 11:14 | Emergency (ER) | payer MEDICAID, SELFPAY ==
[2025-01-05 11:34] VITALS: BP 100/60; BMI 39.6
[2025-02-19 11:17] VITALS: BP 91/66; PULSE 86; RESP 18; TEMP 36.6; O2SAT 97; BMI 38.9
[2025-02-19 11:27] VITALS: BP 91/66; PULSE 86; RESP 18; TEMP 36.6; O2SAT 97
--- NOTE | 2025-02-19 11:28 | XRR_ITS ---
PROCEDURE INFORMATION: Exam: XR Left Knee Exam date and time: 02/19/2025 11:35 AM Age: 64 years old Clinical indication: Injury or trauma; Fall; Blunt trauma; Injury date: 02/16/2025; Injury details: C/O left knee pain since Friday, 3 days ago. PT states he fell and landed on his knees causing his injury. PT uses a cane sometimes but not all the time. PT has an abrasion to the left knee cap. No bleeding at this time. ; Additional info: Fall on L knee. TECHNIQUE: Imaging protocol: Radiologic exam of the left knee. Views: 3 views. COMPARISON: CR XR foot LT min 3V* [id number] 02/20/2024 9:43 AM FINDINGS: Bones/joints: No acute fracture or dislocation is appreciated. There is mild joint space narrowing with small osteophytes involving the patellofemoral compartment. Bony mineralization is normal. There is no evidence of a significant joint effusion. Soft tissues: Normal. XR/XR knee LT 3V* [id number] IMPRESSION: 1. Minimal osteoarthritis.
--- NOTE | 2025-02-19 12:01 | W.ED.EXTPRO ---
HPI - Extremity Problem General: Chief complaint: Extremity Injury, Lower Stated complaint: left knee pain Time Seen by Provider: 02/19/25 11:27 Source: patient (family in room as well but non-contributory to hx) Mode of arrival: ambulatory Limitations: no limitations History of Present Illness: Patient planes of fall on his left knee Friday. Pain has continued and actually become a little bit worse over the past 3 to 4 days. Fall was from standing. On examination patient has tenderness to the lower patella/attachment area of the patellar ligament as well as the MCL and medial joint line tenderness. Negative Tex's. No laxity, negative drawer test. No LCL tenderness. No popliteal fossa tenderness Related Data Home Medications ?Medication ?Instructions ?Recorded ?Confirmed allopurinol 300 mg tablet 300 mg PO QAM 08/17/24 02/19/25 carvedilol 12.5 mg tablet 25 mg PO BID 12/22/24 02/19/25 dapagliflozin propanediol 10 mg 10 mg PO DAILY 12/22/24 02/19/25 tablet (Farxiga) rosuvastatin 40 mg tablet 40 mg PO BEDTIME 12/22/24 02/19/25 bumetanide 1 mg tablet 1 mg PO DAILY 02/10/25 02/19/25 pantoprazole 40 mg tablet,delayed 40 mg PO DAILY 02/10/25 02/19/25 release potassium citrate 10 mEq (1,080 20 meq PO BID 02/10/25 02/19/25 mg) tablet,extended release cefadroxil 500 mg capsule 500 mg PO BID 02/19/25 02/19/25 insulin glargine 100 unit/mL (3 20 unit SUBCUT BID 02/19/25 02/19/25 mL) subcutaneous pen (Lantus Solostar U-100 Insulin) levocetirizine 5 mg tablet 5 mg PO DAILY 02/19/25 02/19/25 Previous Rx's ?Medication ?Instructions ?Recorded apixaban 2.5 mg tablet 2.5 mg PO BID 90 days #180 tabs 08/31/24 Held on 02/15/25. Instructions: Resume on 02/16/25. budesonide-formoterol HFA 160 2 puff inhalation BID #10.2 grams 09/22/24 mcg-4.5 mcg/actuation aerosol inhaler (Symbicort) amiodarone 200 mg tablet (Pacerone) 200 mg PO DAILY #60 tabs 10/09/24 spironolactone 25 mg tablet 25 mg PO DAILY #90 tabs 10/29/24 metoprolol succinate 25 mg 25 mg PO DAILY #30 tabs 11/11/24 tablet,extended release 24 hr sertraline 100 mg tablet 100 mg PO QAM #30 tabs 11/25/24 ropinirole 1 mg tablet 1 mg PO BID #60 tabs 12/13/24 insulin aspart U-100 100 unit/mL See Rx Instructions SUBCUT TID #15 01/05/25 (3 mL) subcutaneous pen (Novolog mL FlexPen U-100 Insulin aspart) naproxen sodium 550 mg tablet 550 mg PO BID PRN pain 10 days #20 02/19/25 (Anaprox DS) tabs Allergies Allergy/AdvReac Type Severity Reaction Status Date / Time isosorbide Allergy unknown Verified 02/15/25 10:56 Penicillins AdvReac rash Verified 02/15/25 10:56 Review of Systems General: Reports: 10 or more systems reviewed and unremarkable except in HPI and below PFSH ED PFSH: Medical History Endocarditis pacemaker lead infection. Treated in COPD (chronic obstructive pulmonary disease) Cardiomyopathy Coronary artery disease Type 2 diabetes mellitus Cardiac resynchronization therapy defibrillator ([employer]) in place [employer] [place]. [place], 07/11/2020 Mixed hyperlipidemia Hypertension CVA (cerebral vascular accident) PVCs (premature ventricular contractions) Hypomagnesemia Infarction of spleen Nausea & vomiting Gastroparesis Major depressive disorder, recurrent episode, mild degree Major depressive disorder in partial remission Allergic rhinitis Bipolar II disorder Diabetes Non-ST elevation NM (NSTEMI) Uses bilevel positive airway pressure (BPAP) ventilation at home 12/8cm Dysarthria Unstable angina Nonischemic congestive cardiomyopathy Chronic low back pain Elevated blood uric acid level History of sleep study 2017 at [facility]: Optimal pressure settings with BiPAP found to be 12/8 cm COVID-19 Wound infection following procedure infection with defibrillator lead revision, removed , scarring left subclavian area from this GERD (gastroesophageal reflux disease) ALBERTO (obstructive sleep apnea) C. difficile diarrhea Cataracts, bilateral CHF (congestive heart failure) Urolithiasis Multi stone former, calcium oxalate mono and dihydrate. Also calcium phosphate. Multiple interventions including endoscopy with laser lithotripsy and ESWL. Metabolic treatment with potassium citrate Hemorrhoids Psychiatric care Right ureteral calculus Osteoarthritis of hands, bilateral Pacemaker Surgical History S/P epidural steroid injection Status post hemorrhoidectomy Hx of umbilical hernia repair Hx of lithotripsy History of urethral stent H/O esophagogastroduodenoscopy (02/27/21) gastritis, duodenitis History of colonoscopy (02/27/21) descending colon polyp, hemorrhoids History of carpal tunnel release of both wrists History of permanent cardiac pacemaker placement Hx of cataract surgery Hx of shoulder surgery Family History Grandfather CAD (coronary artery disease) Brother Cancer colon cancer Diabetes Mother Diabetes Father No problems noted. Other Hypertension Rheumatoid arthritis Social History Smoking and tobacco/nicotine status: never used tobacco/nicotine Second hand smoke exposure: No Alcohol intake: former Year of sobriety/quit date alcohol: 1997 Substance/Drug Use: former Date of last use: 1997 Caregiver/support person: Yes Lives independently: Yes Household members: spouse Marital status: service: No Current occupational status: disabled Current gender identity: Male Special fernando needs: No Agree to transfusion: Yes Physical Exam Const: COMMON NORMALS: no acute distress and patient oriented x3 GENERAL APPEARANCE: cooperative, comfortable and well kempt NUTRITIONAL APPEARANCE: overweight ORIENTATION/CONSCIOUSNESS: Yes awake, Yes oriented to person, Yes oriented to place and Yes oriented to time HENMT: COMMON NORMALS: normocephalic, atraumatic, hearing grossly normal bilaterally and external ears normal HEAD & SCALP: normocephalic and atraumatic EXTERNAL EAR: Yes external ears normal Eye: COMMON NORMALS: Equal, round and reactive pupils present, EOMs intact bilaterally and conjunctivae normal CONJUNCTIVA: Yes conjunctivae normal PUPIL: Yes Equal, round and reactive pupils present Neck/C-Spine: COMMON NORMALS: full ROM Chest: CHEST: Yes Symmetrical chest wall rise and No Surgical scars present (Chest) Resp: COMMON NORMALS: normal respiratory effort, No retractions and No use of accessory muscles Cardio: COMMON NORMALS: regular rate and regular rhythm RATE: regular rate RHYTHM: regular rhythm PERIPHERAL PULSES: other (Radial pulses 2+ and symmetric) GI: INSPECTION: No abdominal distension Extremity: COMMON NORMALS: full ROM, capillary refill normal and no clubbing, cyanosis or edema NARRATIVE EXTREMITY EXAM: Abrasion to the proximal tibial area. Otherwise see HPI Neuro: COMMON NORMALS: patient oriented x3 SENSORIUM/ORIENTATION: Yes oriented to person, Yes oriented to place and Yes oriented to time Psych: APPEARANCE: Yes well kempt Skin: COMMON NORMALS: no rashes or lesions noted, turgor normal and no jaundice GENERAL SKIN EXAM: no rashes or lesions noted and turgor normal Course Vital Signs: Vital signs: Vital Signs Temperature 97.9 F 02/19/25 11:17 Pulse Rate 86 02/19/25 11:17 Respiratory Rate 18 02/19/25 11:17 Blood Pressure 91/66 02/19/25 11:17 Pulse Oximetry 97 02/19/25 11:17 Oxygen Delivery Me thod Room Air 02/19/25 11:17 MDM - Extremity (Nontraumatic) Medical Decision Making Reviewed x-ray, no acute fracture or abnormality seen. On exam has some MCL tenderness medial joint line tenderness and patella/patella ligament tenderness. Will place patient in knee immobilizer, give crutches and have him follow-up with orthopedics in 1 week if not improved. Will also place patient on NSAID. Her last creatinine in January was 1.1. Medical Records I reviewed the patient's medical records. Lab Data I reviewed the patient's lab results. (previous) XR interpretation done by ED provider, pending radiology final review ED provider radiology interpretation(s): See above Discharge Plan Discharge Patient Disposition: Home Clinical Impression: Acute pain of left knee, Ground-level fall Condition: Stable Prescriptions: New naproxen sodium [Anaprox DS] 550 mg tablet 550 mg PO BID PRN (Reason: pain) 10 Days Qty: 20 0RF No Action sertraline 100 mg tablet 100 mg PO QAM Qty: 30 2RF ropinirole 1 mg tablet 1 mg PO BID Qty: 60 2RF apixaban 2.5 mg tablet 2.5 mg PO BID 90 Days Qty: 180 1RF budesonide-formoterol [Symbicort] 160-4.5 mcg/actuation HFA aerosol inhaler 2 puff inhalation BID Qty: 10.2 0RF insulin aspart U-100 [Novolog FlexPen U-100 Insulin] 100 unit/mL (3 mL) insulin pen See Rx Instructions SUBCUT TID Qty: 15 0RF Rx Instructions: 150-200: 3 units 201-250: 5 units 251-300: 7 units 301-350: 9 units 351-400: 11 units spironolactone 25 mg tablet 25 mg PO DAILY Qty: 90 1RF metoprolol succinate 25 mg tablet extended release 24 hr 25 mg PO DAILY Qty: 30 0RF allopurinol 300 mg tablet 300 mg PO QAM amiodarone [Pacerone] 200 mg Tablet 200 mg PO DAILY Qty: 60 3RF carvedilol 12.5 mg tablet 25 mg PO BID rosuvastatin 40 mg tablet 40 mg PO BEDTIME dapagliflozin propanediol [Farxiga] 10 mg tablet 10 mg PO DAILY potassium citrate 10 mEq (1,080 mg) tablet extended release 20 meq PO BID Rx Instructions: Take 2 tablets by mouth twice daily pantoprazole 40 mg tablet,delayed release (DR/EC) 40 mg PO DAILY Rx Instructions: Take 1 tablet by mouth twice daily bumetanide 1 mg tablet 1 mg PO DAILY Rx Instructions: Take 1 tablet by mouth twice daily insulin glargine [Lantus Solostar U-100 Insulin] 100 unit/mL (3 mL) insulin pen 20 unit SUBCUT BID cefadroxil 500 mg capsule 500 mg PO BID levocetirizine 5 mg tablet 5 mg PO DAILY Discharge Orders: Discharge ED (Routine); Ordered 02/19/25 Ordered By: Brenden Lyn Referrals: Lucrecia Blandon FNP [Primary Care Provider] - Discharge Diet: Usual diet Discharge Activity: Limit activity as instructed and Use walker/crutches as instructed Patient Instructions: Knee Pain (ED) Activity Restrictions/Additional Instructions: As we discussed, x-rays are unremarkable. You have some tenderness over your medial collateral ligament your patella ligament and your medial joint line. Fairly consistent for ligament strain/contusion. Wear the knee immobilizer and use crutches to limit use of your left knee. You are allowed to put minimal weight on the leg while using crutches. If not improved within 1 week. Please follow-up with orthopedics. Print Language: Welsh Coding Level of Care Code ED Detective Investigator for Ck Crooks
[2025-02-19] MEDS: ibuprofen 800 mg tablet PO (12:39)
[2025-02-19 12:43] VITALS: BP 104/74; PULSE 79; O2SAT 97
== END 2025-02-19 12:44 | disposition home or self-care (01) ==
PROVIDERS: Emergency Provider Emergency Medicine; PCP Nurse Practitioner Family
DX: M25.562 Pain in left knee (principal); W19.XXXA Unspecified fall, initial encounter; Z79.4 Long term (current) use of insulin; Z95.0 Presence of cardiac pacemaker; Z86.73 Personal history of transient ischemic attack (TIA), and cerebral infarction without residual deficits; E78.2 Mixed hyperlipidemia; J44.9 Chronic obstructive pulmonary disease, unspecified; I11.0 Hypertensive heart disease with heart failure; I50.9 Heart failure, unspecified; E11.9 Type 2 diabetes mellitus without complications
CPT/HCPCS: 73562; 99283; J9999

== ENCOUNTER 2025-02-24 23:24 | Emergency (ER) | payer MEDICAID, SELFPAY ==
[2025-01-05 11:34] VITALS: BP 100/60; BMI 39.6
[2025-02-24 23:25] VITALS: BP 111/76; PULSE 85; RESP 16; TEMP 36.3; O2SAT 96; BMI 39.9
--- NOTE | 2025-02-24 23:33 | ECG_ITS ---
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 Measurements Intervals [place] Rate: 90 P: 76 WV: 168 QRS: 182 QRSD: 200 T: 28 QT: 456 QTc: 559 Interpretive Statements A-V DUAL-PACED COMPLEXES with frequent PVCs ABNORMAL RHYTHM ECG Compared to ECG 01/02/2025 16:50:10 the PVCs appear to be new Electronically Signed On 02-25-2025 08:39:31 CDT by Joe Holder M.D. [email or web address] [id number]
--- NOTE | 2025-02-24 23:36 | ECG_ITS ---
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 Measurements Intervals [place] Rate: 90 P: 76 [place]: 168 QRS: 182 QRSD: 200 T: 28 QT: 456 QTc: 559 Interpretive Statements ATRIAL-SENSED VENTRICULAR-PACED COMPLEXES frequent PVCs ABNORMAL RHYTHM ECG Compared to ECG 01/02/2025 16:50:10 Atrial-paced complex(es) or rhythm no longer present Electronically Signed On 02-25-2025 08:40:24 CDT by Joe Holder M.D. [email or web address] [id number]
--- NOTE | 2025-02-24 23:39 | XRR_ITS ---
PROCEDURE INFORMATION: Exam: XR Chest Exam date and time: 02/25/2025 12:33 AM Age: 64 years old Clinical indication: Shortness of breath TECHNIQUE: Imaging protocol: Radiologic exam of the chest. Views: 1 view. COMPARISON: CR XR chest 2V* [id number] 02/14/2025 11:39 AM FINDINGS: Tubes, catheters and devices: Right chest wall 3 lead pacer device, unchanged. Lungs: Perhaps mild increased opacification of the retrocardiac region. Pleural spaces: Unremarkable. No pleural effusion. No pneumothorax. Heart/Mediastinum: Cardiomegaly. Abandoned cardiac wire is seen superiorly over the mediastinum and left chest wall. Bones/joints: Unremarkable. XR/XR chest 1V portable [id number] IMPRESSION: Possible mild increase in opacification of the retrocardiac region which could indicate infection in the correct clinical setting.
--- NOTE | 2025-02-24 23:39 | W.ED.EXTPRO ---
HPI - Extremity Problem General: Chief complaint: Extremity Problem,Nontraumatic Stated complaint: left leg swelling Time Seen by Provider: 02/24/25 23:37 History of Present Illness: Patient is a generally well-appearing 64-year-old male from home seen for peripheral edema and dyspnea on exertion which have gotten worse over the last week. He does not track his water weight closely nor does he try, which he is drinking throughout the day. He states that his edema on his feet and legs has gotten significantly worse over the last week causing him shortness of breath with exertion more than usual. He denies chest pain associate with the symptoms but does have some lightheadedness intermittently. He has no other acute complaints. Related Data Home Medications ?Medication ?Instructions ?Recorded ?Confirmed allopurinol 300 mg tablet 300 mg PO QAM 08/17/24 02/23/25 carvedilol 12.5 mg tablet 25 mg PO BID 12/22/24 02/23/25 dapagliflozin propanediol 10 mg 10 mg PO DAILY 12/22/24 02/23/25 tablet (Farxiga) rosuvastatin 40 mg tablet 40 mg PO BEDTIME 12/22/24 02/23/25 pantoprazole 40 mg tablet,delayed 40 mg PO DAILY 02/10/25 02/23/25 release potassium citrate 10 mEq (1,080 20 meq PO BID 02/10/25 02/23/25 mg) tablet,extended release cefadroxil 500 mg capsule 500 mg PO BID 02/19/25 02/23/25 insulin glargine 100 unit/mL (3 20 unit SUBCUT BID 02/19/25 02/23/25 mL) subcutaneous pen (Lantus Solostar U-100 Insulin) levocetirizine 5 mg tablet 5 mg PO DAILY 02/19/25 02/23/25 Previous Rx's ?Medication ?Instructions ?Recorded apixaban 2.5 mg tablet 2.5 mg PO BID 90 days #180 tabs 08/31/24 Held on 02/15/25. Instructions: Resume on 02/16/25. budesonide-formoterol HFA 160 2 puff inhalation BID #10.2 grams 09/22/24 mcg-4.5 mcg/actuation aerosol inhaler (Symbicort) amiodarone 200 mg tablet (Pacerone) 200 mg PO DAILY #60 tabs 10/09/24 spironolactone 25 mg tablet 25 mg PO DAILY #90 tabs 10/29/24 metoprolol succinate 25 mg 25 mg PO DAILY #30 tabs 11/11/24 tablet,extended release 24 hr ropinirole 1 mg tablet 1 mg PO BID #60 tabs 12/13/24 insulin aspart U-100 100 unit/mL See Rx Instructions SUBCUT TID #15 01/05/25 (3 mL) subcutaneous pen (Novolog mL FlexPen U-100 Insulin aspart) naproxen sodium 550 mg tablet 550 mg PO BID PRN pain 10 days #20 02/19/25 (Anaprox DS) tabs bumetanide 1 mg tablet See Rx Instructions .Route 02/21/25 .COMPLEX #60 tabs sertraline 100 mg tablet 100 mg PO QAM #30 tabs 02/23/25 Allergies Allergy/AdvReac Type Severity Reaction Status Date / Time isosorbide Allergy unknown Verified 02/23/25 11:24 Penicillins AdvReac rash Verified 02/23/25 11:24 [facility] ED PFS: Medical History Endocarditis pacemaker lead infection. 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 [place], 07/11/2020 Mixed hyperlipidemia Hypertension CVA (cerebral vascular accident) PVCs (premature ventricular contractions) Hypomagnesemia Infarction of spleen Nausea & vomiting Gastroparesis Major depressive disorder, recurrent episode, mild degree Major depressive disorder in partial remission Allergic rhinitis Bipolar II disorder Diabetes Non-ST elevation VA (NSTEMI) Uses bilevel positive airway pressure (BPAP) ventilation at home 12/8cm Dysarthria Unstable angina Nonischemic congestive cardiomyopathy Chronic low back pain Elevated blood uric acid level History of sleep study [address] [facility]: Optimal pressure settings with BiPAP found to be 12/8 cm COVID-19 Wound infection following procedure infection with defibrillator lead revision, removed , scarring left subclavian area from this GERD (gastroesophageal reflux disease) ALBERTO (obstructive sleep apnea) C. difficile diarrhea Cataracts, bilateral CHF (congestive heart failure) Urolithiasis Multi stone former, calcium oxalate mono and dihydrate. Also calcium phosphate. Multiple interventions including endoscopy with laser lithotripsy and ESWL. Metabolic treatment with potassium citrate Hemorrhoids Psychiatric care Right ureteral calculus Osteoarthritis of hands, bilateral Pacemaker Surgical History S/P epidural steroid injection Status post hemorrhoidectomy Hx of umbilical hernia repair Hx of lithotripsy History of urethral stent H/O esophagogastroduodenoscopy (02/27/21) gastritis, duodenitis History of colonoscopy (02/27/21) descending colon polyp, hemorrhoids History of carpal tunnel release of both wrists History of permanent cardiac pacemaker placement Hx of cataract surgery Hx of shoulder surgery Family History Grandfather CAD (coronary artery disease) Brother Cancer colon cancer Diabetes Mother Diabetes Father No problems noted. Other Hypertension Rheumatoid arthritis Social History Smoking and tobacco/nicotine status: never used tobacco/nicotine Second hand smoke exposure: No Alcohol intake: former Year of sobriety/quit date alcohol: 1997 Substance/Drug Use: former Date of last use: 1997 Caregiver/support person: Yes Lives independently: Yes Household members: spouse Marital status: service: No Current occupational status: disabled Current gender identity: Male Special fernando needs: No Agree to transfusion: Yes Physical Exam Const: COMMON NORMALS: no acute distress, patient oriented x3 and alert HENMT: COMMON NORMALS: normocephalic and atraumatic HEAD & SCALP: normocephalic and atraumatic Eye: COMMON NORMALS: Equal, round and reactive pupils present, EOMs intact bilaterally and no scleral icterus PUPIL: Yes Equal, round and reactive pupils present Resp: COMMON NORMALS: normal respiratory effort and No retractions Cardio: COMMON NORMALS: regular rate, regular rhythm and No murmurs present (Cardio) RATE: regular rate RHYTHM: regular rhythm OTHER: 2+ pitting edema of the feet and legs to the mid thigh level. GI: COMMON NORMALS: Normal to inspection, nondistended, normoactive bowel sounds present, Soft to palpation and non-tender PALPATION: Yes Soft to palpation Neuro: COMMON NORMALS: patient oriented x3 SENSORIUM/ORIENTATION: Yes alert Skin: COMMON NORMALS: no rashes or lesions noted GENERAL SKIN EXAM: no rashes or lesions noted Course Vital Signs: Vital signs: Vital Signs Temperature 97.3 F L 02/24/25 23:25 Pulse Rate 85 02/25/25 04:21 Respiratory Rate 16 02/25/25 04:21 Blood Pressure 116/66 02/25/25 04:21 Pulse Oximetry 94 02/25/25 04:21 Oxygen Delivery Me thod Room Air 02/25/25 04:21 MDM - Extremity (Nontraumatic) Medical Decision Making In summary, patient is a generally well-appearing 64-year-old male seen for worsening pitting edema and dyspnea on exertion. BNP is somewhat elevated as is his creatinine. We discussed that he has what appears to be both acute worsening of his CHF as well as JACIEL. I offered him admission to the hospital to monitor his kidney function while diuresing but he graciously declines as he wants to go home. He knows that he should return to the emergency department if symptoms get worse over the next few days. He will start to monitor how much water he is drinking and keep a record of it and also weigh himself daily. He and daughter showed understanding and agreed to the plan. Lab Data 02/25/25 00:47 02/25/25 00:47 Radiology Impressions Chest X-Ray 02/24/25 23:39 IMPRESSION: Possible mild increase in opacification of the retrocardiac region which could indicate infection in the correct clinical setting. Laboratory Results WBC 9.81 10^3/uL (3.29-11.43) 02/25/25 00:47 RBC 4.80 10^6/uL (3.85-5.65) 02/25/25 00:47 Hgb 11.20 g/dL (11.27-16.99) L 02/25/25 00:47 Hct 36.5 % (37-53) L 02/25/25 00:47 MCV 76.0 fl (82-101) L 02/25/25 00:47 MCH 23.3 pg (27-33) L 02/25/25 00:47 MCHC 30.7 g/dL (30-55) 02/25/25 00:47 RDW 19.8 % (12.1-15.1) H 02/25/25 00:47 Plt Count 272 10^3/cmm (157-399) 02/25/25 00:47 MPV 10.0 fL (7.4-10.4) 02/25/25 00:47 Neut % (Auto) 78.1 % 02/25/25 00:47 Lymph % (Auto) 9.0 % 02/25/25 00:47 [place] % (Auto) 11.9 % 02/25/25 00:47 Eos % (Auto) 0.1 % 02/25/25 00:47 Baso % (Auto) 0.4 % 02/25/25 00:47 Neut # (Auto) 7.66 10^3/uL (1.8-7.7) 02/25/25 00:47 Lymph # (Auto) 0.9 10^3/uL (0.8-4.8) 02/25/25 00:47 [place] # (Auto) 1.2 10^3/uL (0.2-0.9) H 02/25/25 00:47 Eos # (Auto) 0.0 10^3/uL (0.0-0.8) 02/25/25 00:47 Baso # (Auto) 0.0 10^3/uL (0.0-0.1) 02/25/25 00:47 Nucleated RBC % (auto) 0 % 02/25/25 00:47 Nucleated RBCs # 0.0 /100WBC 02/25/25 00:47 Sodium 133 mmol/L (136-145) L 02/25/25 00:47 Potassium 3.5 mmol/L (3.5-5.1) 02/25/25 00:47 Chloride 94 mmol/L (98-107) L 02/25/25 00:47 Carbon Dioxide 26 mmol/L (22-29) 02/25/25 00:47 Anion Gap 16.5 (5-19) 02/25/25 00:47 BUN 24 mg/dL (8-23) H 02/25/25 00:47 Creatinine 1.9 mg/dL (0.7-1.2) H 02/25/25 00:47 GFR Calculation 35.9 mL/min (90-130) L 02/25/25 00:47 Glucose 113 mg/dL (65-115) 02/25/25 00:47 Calculated Osmolality 281 mOsm/kg (285-295) L 02/25/25 00:47 Calcium 9.1 mg/dL (8.5-10.5) 02/25/25 00:47 Magnesium 2.1 mg/dL (1.7-2.3) 02/25/25 00:47 Total Bilirubin 1.8 mg/dL (0.15-1.2) H 02/25/25 00:47 AST 92 U/L (0-40) H 02/25/25 00:47 ALT 46 U/L (0-41) H 02/25/25 00:47 Alkaline Phosphatase 225 U/L (40-130) H 02/25/25 00:47 Troponin T Baseline 90 ng/L (0-15) H 02/25/25 00:47 Troponin T 120 Minute 82.32 ng/L (0-15) H 02/25/25 02:48 Delta Troponin T -7.68 ABS# (0-10) L 02/25/25 02:48 NT-Pro-B Natriuret Pep 8336 pg/mL (0-125) H 02/25/25 00:47 Total Protein 6.2 g/dL (6.6-8.7) L 02/25/25 00:47 Albumin 3.5 g/dL (3.5-5.2) 02/25/25 00:47 Globulin 2.7 g/dL (1.3-4.6) 02/25/25 00:47 All radiology interpretation(s) finalized by discharge EKG Data EKG 1: Interpretation: Time?23 33?ventricularly paced rhythm, rate of 90, infrequent PVCs, negative Sgarbossa criteria, QTc = 503 Discharge Plan Discharge Patient Disposition: Home Clinical Impression: 2+ pitting edema, RIOS (dyspnea on exertion), JACIEL (acute kidney injury) Condition: Stable Prescriptions: No Action ropinirole 1 mg tablet 1 mg PO BID Qty: 60 2RF apixaban 2.5 mg tablet 2.5 mg PO BID 90 Days Qty: 180 1RF budesonide-formoterol [Symbicort] 160-4.5 mcg/actuation HFA aerosol inhaler 2 puff inhalation BID Qty: 10.2 0RF sertraline 100 mg tablet 100 mg PO QAM Qty: 30 2RF insulin aspart U-100 [Novolog FlexPen U-100 Insulin] 100 unit/mL (3 mL) insulin pen See Rx Instructions SUBCUT TID Qty: 15 0RF Rx Instructions: 150-200: 3 units 201-250: 5 units 251-300: 7 units 301-350: 9 units 351-400: 11 units spironolactone 25 mg tablet 25 mg PO DAILY Qty: 90 1RF metoprolol succinate 25 mg tablet extended release 24 hr 25 mg PO DAILY Qty: 30 0RF bumetanide 1 mg tablet See Rx Instructions .ROUTE .COMPLEX Qty: 60 0RF Dose Instruction: Take 1 tablet by mouth twice daily Rx Instructions: Take 1 tablet by mouth twice daily allopurinol 300 mg tablet 300 mg PO QAM amiodarone [Pacerone] 200 mg Tablet 200 mg PO DAILY Qty: 60 3RF carvedilol 12.5 mg tablet 25 mg PO BID rosuvastatin 40 mg tablet 40 mg PO BEDTIME dapagliflozin propanediol [Farxiga] 10 mg tablet 10 mg PO DAILY potassium citrate 10 mEq (1,080 mg) tablet extended release 20 meq PO BID Rx Instructions: Take 2 tablets by mouth twice daily pantoprazole 40 mg tablet,delayed release (DR/EC) 40 mg PO DAILY Rx Instructions: Take 1 tablet by mouth twice daily insulin glargine [Lantus Solostar U-100 Insulin] 100 unit/mL (3 mL) insulin pen 20 unit SUBCUT BID cefadroxil 500 mg capsule 500 mg PO BID levocetirizine 5 mg tablet 5 mg PO DAILY naproxen sodium [Anaprox DS] 550 mg tablet 550 mg PO BID PRN (Reason: pain) 10 Days Qty: 20 0RF Discharge Orders: Discharge ED (Routine); Ordered 02/25/25 Ordered By: Handy Pina Referrals: Lucrecia Blandon FNP [Primary Care Provider] - Patient Instructions: Heart Failure (ED), Leg Edema (ED), CHF Stoplight Activity Restrictions/Additional Instructions: If your symptoms are getting worse and not better please return to the emergency department. Please pay close attention to how much water you drink in the day and measure your weight every day. If weight continues to rise and if your shortness of breath and swelling gets worse you should come to the emergency department to be admitted and be monitored as we take the fluid off. 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
[2025-02-25 00:47] VITALS: BP 117/73; PULSE 93; RESP 16; O2SAT 94
[2025-02-25 00:57] LABS: Basophils % 0.4 %; Eosinophils % 0.1 %; Hematocrit 36.5 % (37-53); Lymphocytes # 0.9 10^3/uL (0.8-4.8); Mean Corpuscular HGB Conc 30.7 g/dL (30-55); Mean Corpuscular Hemoglobin 23.3 pg (27-33); Monocytes # 1.2 10^3/uL (0.2-0.9); Monocytes % 11.9 %; Neutrophils # 7.66 10^3/uL (1.8-7.7); Neutrophils % 78.1 %; Nucleated Red Blood Cells % 0 %; Platelet Count 272 10^3/cmm (157-399); Red Cell Distribution Width 19.8 % (12.1-15.1); White Blood Count 9.81 10^3/uL (3.29-11.43)
[2025-02-25 01:22] LABS: Troponin(5th) Baseline 90 ng/L (0-15)
[2025-02-25 01:31] LABS: Alanine Aminotransferase 46 U/L (0-41); Albumin Level 3.5 g/dL (3.5-5.2); Alkaline Phosphatase 225 U/L (40-130); Anion Gap 16.5 (5-19); Aspartate Amino Transferase 92 U/L (0-40); Blood Urea Nitrogen 24 mg/dL (8-23); Calcium 9.1 mg/dL (8.5-10.5); Carbon Dioxide 26 mmol/L (22-29); Chloride 94 mmol/L (98-107); Creatinine Clr Calc Pharmacy 44.6916; Globulin 2.7 g/dL (1.3-4.6); Glomerular Filtration Rate 35.9 mL/min (90-130); Glucose 113 mg/dL (65-115); Magnesium 2.1 mg/dL (1.7-2.3); NT Pro B Type Natriuretic Pept 8336 pg/mL (0-125); Osmolality Calculated 281 mOsm/kg (285-295); Potassium 3.5 mmol/L (3.5-5.1); Sodium 133 mmol/L (136-145); Total Bilirubin 1.8 mg/dL (0.15-1.2); Total Protein 6.2 g/dL (6.6-8.7)
[2025-02-25 01:55] VITALS: BP 98/64; PULSE 87; RESP 16; O2SAT 96
[2025-02-25 03:00] VITALS: BP 112/72; PULSE 84; RESP 16; O2SAT 95
[2025-02-25 03:24] LABS: Troponin 5 2HR 82.32 ng/L (0-15)
[2025-02-25 03:28] LABS: Troponin 5 2HR Delta -7.68 ABS# (0-10)
[2025-02-25 04:21] VITALS: BP 116/66; PULSE 85; RESP 16; O2SAT 94
[2025-02-25 05:07] VITALS: BP 113/70; PULSE 83; RESP 16; O2SAT 93
== END 2025-02-25 05:09 | disposition home or self-care (01) ==
PROVIDERS: Emergency Provider Student in an Organized Health Care Education/Training Program; PCP Nurse Practitioner Family
DX: R60.9 Edema, unspecified (principal); R06.00 Dyspnea, unspecified; N17.9 Acute kidney failure, unspecified; Z79.4 Long term (current) use of insulin; Z95.0 Presence of cardiac pacemaker; Z86.73 Personal history of transient ischemic attack (TIA), and cerebral infarction without residual deficits; J44.9 Chronic obstructive pulmonary disease, unspecified; E11.9 Type 2 diabetes mellitus without complications; I11.0 Hypertensive heart disease with heart failure; I50.9 Heart failure, unspecified
CPT/HCPCS: 36415; 71045; 80053; 83735; 83880; 84484; 85025; 93005; 99285

== ENCOUNTER 2025-03-01 22:33 | Emergency (ER) | payer MEDICAID, SELFPAY ==
[2025-01-05 11:34] VITALS: BP 100/60; BMI 39.6
--- NOTE | 2025-03-01 22:34 | XRR_ITS ---
PROCEDURE INFORMATION: Exam: XR Chest Exam date and time: 03/01/2025 10:55 PM Age: 64 years old Clinical indication: Other: Chf TECHNIQUE: Imaging protocol: Radiologic exam of the chest. Views: 1 view. COMPARISON: CR (CHEST, ) 02/25/2025 12:33 AM FINDINGS: Tubes, catheters and devices: Right subclavian transvenous triple lead pacemaker/AICD is in expected position. Lungs: No pulmonary venous distension. Pleural spaces: No pleural effusion. No pneumothorax. Heart/Mediastinum: Moderate cardiomegaly. Bones/joints: Age appropriate. XR/XR chest 1V portable [id number] IMPRESSION: Stable moderate cardiomegaly. No pulmonary venous distension or interstitial edema.
--- NOTE | 2025-03-01 22:35 | ECG_ITS ---
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 Measurements Intervals [place] Rate: 94 P: 93 NV: 171 QRS: 168 QRSD: 213 T: 20 QT: 464 QTc: 583 Interpretive Statements ELECTRONIC VENTRICULAR PACEMAKER,Frequent PVCs and short run of nonsustained V. tach of 3 beats ABNORMAL RHYTHM ECG Compared to ECG 02/24/2025 23:33:53 Ventricular premature complex(es) are still present Electronically Signed On 03-02-2025 08:32:47 CDT by Joe Holder M.D. [email or web address]
[2025-03-01 22:41] VITALS: BP 83/71; PULSE 98; RESP 18; TEMP 36.6; O2SAT 100; BMI 39.9
--- NOTE | 2025-03-01 22:44 | W.ED.GENADLT ---
HPI - General Adult General: Chief complaint: Extremity Problem,Nontraumatic Stated complaint: Retainign Water Time Seen by Provider: 03/01/25 22:34 Source: patient Mode of arrival: ambulatory Limitations: no limitations History of Present Illness: 64-year-old male history of congestive heart failure and lower extremity edema states has been having some increased edema this week. He is on Bumex had some mild dyspnea he denies any fevers denies any chest pain. Denies any worse improved factors. Associated symptoms: Reports dyspnea; Deny chest pain, headache(s), nausea, rash or vomiting Related Data Home Medications ?Medication ?Instructions ?Recorded ?Confirmed allopurinol 300 mg tablet 300 mg PO QAM 08/17/24 02/28/25 carvedilol 12.5 mg tablet 25 mg PO BID 12/22/24 02/28/25 dapagliflozin propanediol 10 mg 10 mg PO DAILY 12/22/24 02/28/25 tablet (Farxiga) rosuvastatin 40 mg tablet 40 mg PO BEDTIME 12/22/24 02/28/25 pantoprazole 40 mg tablet,delayed 40 mg PO DAILY 02/10/25 02/28/25 release potassium citrate 10 mEq (1,080 20 meq PO BID 02/10/25 02/28/25 mg) tablet,extended release cefadroxil 500 mg capsule 500 mg PO BID 02/19/25 02/28/25 insulin glargine 100 unit/mL (3 20 unit SUBCUT BID 02/19/25 02/28/25 mL) subcutaneous pen (Lantus Solostar U-100 Insulin) levocetirizine 5 mg tablet 5 mg PO DAILY 02/19/25 02/28/25 Previous Rx's ?Medication ?Instructions ?Recorded apixaban 2.5 mg tablet 2.5 mg PO BID 90 days #180 tabs 08/31/24 Held on 02/15/25. Instructions: Resume on 02/16/25. budesonide-formoterol HFA 160 2 puff inhalation BID #10.2 grams 09/22/24 mcg-4.5 mcg/actuation aerosol inhaler (Symbicort) amiodarone 200 mg tablet (Pacerone) 200 mg PO DAILY #60 tabs 10/09/24 spironolactone 25 mg tablet 25 mg PO DAILY #90 tabs 10/29/24 metoprolol succinate 25 mg 25 mg PO DAILY #30 tabs 11/11/24 tablet,extended release 24 hr ropinirole 1 mg tablet 1 mg PO BID #60 tabs 12/13/24 insulin aspart U-100 100 unit/mL See Rx Instructions SUBCUT TID #15 01/05/25 (3 mL) subcutaneous pen (Novolog mL FlexPen U-100 Insulin aspart) bumetanide 1 mg tablet See Rx Instructions .Route 02/21/25 .COMPLEX #60 tabs sertraline 100 mg tablet 100 mg PO QAM #30 tabs 02/23/25 blood sugar diagnostic (Blood #200 ea 02/25/25 Glucose Test strips) pen needle, diabetic 31 gauge x #1,200 ea 02/25/2503/25 pantoprazole 40 mg tablet,delayed 40 mg PO BID 30 days #60 tabs 02/28/25 release sucralfate 1 gram tablet (Carafate) 1 g PO BID 30 days #60 tabs 02/28/25 Allergies Allergy/AdvReac Type Severity Reaction Status Date / Time isosorbide Allergy unknown Verified 03/01/25 22:48 Penicillins AdvReac rash Verified 03/01/25 22:48 Review of Systems Const: Denies: fever(s), chills, body aches or change in appetite ENMT: Denies: throat pain or dental pain Card: Denies: chest pain Resp: Reports: dyspnea GI: Denies: abdominal pain, nausea, vomiting or diarrhea Musc: Reports: extremity swelling; Denies: neck pain or back pain Skin/Breast: Denies: rash Neuro: Denies: headache(s) PFS ED PFSH: Medical History Endocarditis pacemaker lead infection. Treated in COPD (chronic obstructive pulmonary disease) Cardiomyopathy Coronary artery disease Type 2 diabetes mellitus Cardiac resynchronization therapy defibrillator (BLACKING WHEEL TENDER-D) in place [employer] [place], 07/11/2020 Mixed hyperlipidemia Hypertension CVA (cerebral vascular accident) PVCs (premature ventricular contractions) Hypomagnesemia Infarction of spleen Nausea & vomiting Gastroparesis Major depressive disorder, recurrent episode, mild degree Major depressive disorder in partial remission Allergic rhinitis Bipolar II disorder Diabetes Non-ST elevation [place] (NSTEMI) Uses bilevel positive airway pressure (BPAP) ventilation at home 12/8cm Dysarthria Unstable angina Nonischemic congestive cardiomyopathy Chronic low back pain Elevated blood uric acid level History of sleep study 2017 at [facility]: Optimal pressure settings with BiPAP found to be 12/8 cm COVID-19 Wound infection following procedure infection with defibrillator lead revision, removed , scarring left subclavian area from this GERD (gastroesophageal reflux disease) ALBERTO (obstructive sleep apnea) C. difficile diarrhea Cataracts, bilateral CHF (congestive heart failure) Urolithiasis Multi stone former, calcium oxalate mono and dihydrate. Also calcium phosphate. Multiple interventions including endoscopy with laser lithotripsy and ESWL. Metabolic treatment with potassium citrate Hemorrhoids Psychiatric care Right ureteral calculus Osteoarthritis of hands, bilateral Pacemaker Surgical History S/P epidural steroid injection Status post hemorrhoidectomy Hx of umbilical hernia repair Hx of lithotripsy History of urethral stent H/O esophagogastroduodenoscopy (02/27/21) gastritis, duodenitis History of colonoscopy (02/27/21) descending colon polyp, hemorrhoids History of carpal tunnel release of both wrists History of permanent cardiac pacemaker placement Hx of cataract surgery Hx of shoulder surgery Family History Grandfather CAD (coronary artery disease) Brother Cancer colon cancer Diabetes Mother Diabetes Father No problems noted. Other Hypertension Rheumatoid arthritis Social History Smoking and tobacco/nicotine status: never used tobacco/nicotine Second hand smoke exposure: No Alcohol intake: former Year of sobriety/quit date alcohol: 1997 Substance/Drug Use: former Date of last use: 1997 Caregiver/support person: Yes Lives independently: Yes Household members: spouse Marital status: service: No Current occupational status: disabled Current gender identity: Male Special fernando needs: No Agree to transfusion: Yes Physical Exam Const: COMMON NORMALS: patient oriented x3 HENMT: COMMON NORMALS: normocephalic and atraumatic HEAD & SCALP: normocephalic and atraumatic Eye: COMMON NORMALS: Equal, round and reactive pupils present and EOMs intact bilaterally PUPIL: Yes Equal, round and reactive pupils present Neck/C-Spine: COMMON NORMALS: full ROM and supple Chest: COMMONS NORMALS: normal inspection of the chest Resp: COMMON NORMALS: normal respiratory effort, No retractions, No use of accessory muscles and clear to auscultation bilaterally AUSCULTATION: clear to auscultation bilaterally Cardio: COMMON NORMALS: regular rate, regular rhythm and No murmurs present (Cardio) RATE: regular rate RHYTHM: regular rhythm GI: COMMON NORMALS: Normal to inspection, nondistended, normoactive bowel sounds present, Soft to palpation, non-tender and no masses PALPATION: Yes Soft to palpation Extremity: COMMON NORMALS: full ROM NARRATIVE EXTREMITY EXAM: 2+ edema to LE Neuro: COMMON NORMALS: patient oriented x3, moves all extremities and no focal motor deficits Psych: COMMON NORMALS: mental status grossly normal, Normal thought process present and cooperative THOUGHT PROCESS: Normal thought process present Skin: COMMON NORMALS: no rashes or lesions noted and no wounds GENERAL SKIN EXAM: no rashes or lesions noted Course Vital Signs: Vital signs: Vital Signs Temperature 97.8 F 03/01/25 22:41 Pulse Rate 98 03/01/25 23:10 Respiratory Rate 18 03/01/25 22:41 Blood Pressure 116/68 03/01/25 23:10 Pulse Oximetry 97 03/01/25 23:10 Oxygen Delivery Me thod Room Air 03/01/25 23:10 MDM - General Adult Medical Decision Making Patient presents for lower extremity edema he is in no respiratory failure he stable for discharge given dose of Lasix here he is follow-up with PCP next week return if worsening. Medical Records I reviewed the patient's medical records. Lab Data I reviewed the patient's lab results. 03/01/25 22:57 03/01/25 22:57 Radiology Impressions Chest X-Ray 03/01/25 22:34 IMPRESSION: Stable moderate cardiomegaly. No pulmonary venous distension or interstitial edema. Laboratory Results WBC 10.18 10^3/uL (3.29-11.43) 03/01/25 22:57 RBC 5.17 10^6/uL (3.85-5.65) 03/01/25 22:57 Hgb 11.70 g/dL (11.27-16.99) 03/01/25 22:57 Hct 38.7 % (37-53) 03/01/25 22:57 MCV 74.9 fl (82-101) L 03/01/25: MCH 22.6 pg (27-33) L 03/01/25: MCHC 30.2 g/dL (30-55) 03/01/25 22:57 RDW 20.0 % (12.1-15.1) H 03/01/25 22:57 Plt Count 280 10^3/cmm (157-399) 03/01/25 22:57 MPV 10.8 fL (7.4-10.4) H 03/01/25 22:57 Neut % (Auto) 81.2 % 03/01/25 22:57 Lymph % (Auto) 8.1 % 03/01/25:57 [place] % (Auto) 10.1 % 03/01/25:57 Eos % (Auto) 0.0 % 03/01/25: Baso % (Auto) 0.1 % 03/01/25: Neut # (Auto) 8.27 10^3/uL (1.8-7.7) H 03/01/25:57 Lymph # (Auto) 0.8 10^3/uL (0.8-4.8) 03/01/25:57 [place] # (Auto) 1.0 10^3/uL (0.2-0.9) H 03/01/25 22:57 Eos # (Auto) 0.0 10^3/uL (0.0-0.8) 03/01/25: Baso # (Auto) 0.0 10^3/uL (0.0-0.1) 03/01/25: Nucleated RBC % (auto) 0.2 % 03/01/25: Nucleated RBCs # 0.0 /100WBC 03/01/25: PT 23.70 SECONDS (12.1-14.9) H 03/01/25 22:57 INR 1.98 (0.8-1.2) H 03/01/25 22:57 Sodium 132 mmol/L (136-145) L 03/01/25 22:57 Potassium 3.5 mmol/L (3.5-5.1) 03/01/25: Chloride 92 mmol/L (98-107) L 03/01/25 22:57 Carbon Dioxide 24 mmol/L (22-29) 03/01/25 22:57 Anion Gap 19.5 (5-19) H 03/01/25 22:57 BUN 31 mg/dL (8-23) H 03/01/25 22:57 Creatinine 2.3 mg/dL (0.7-1.2) H 03/01/25 22:57 GFR Calculation 28.8 mL/min (90-130) L 03/01/25 22:57 Glucose 145 mg/dL (65-115) H 03/01/25 22:57 Calculated Osmolality 283 mOsm/kg (285-295) L 03/01/25 22:57 Calcium 9.2 mg/dL (8.5-10.5) 03/01/25 22:57 Total Bilirubin 3.0 mg/dL (0.15-1.2) H 03/01/25 22:57 AST 350 U/L (0-40) H 03/01/25 22:57 ALT 138 U/L (0-41) H 03/01/25 22:57 Alkaline Phosphatase 331 U/L (40-130) H 03/01/25 22:57 NT-Pro-B Natriuret Pep 8143 pg/mL (0-125) H 03/01/25 22:57 Total Protein 6.8 g/dL (6.6-8.7) 03/01/25 22:57 Albumin 3.5 g/dL (3.5-5.2) 03/01/25 22:57 Globulin 3.3 g/dL (1.3-4.6) 03/01/25 22:57 All radiology interpretation(s) finalized by discharge EKG Data EKG 1: I personally reviewed and interpreted this EKG as follows: EKG interpretation date: 03/01/25 EKG interpretation time: 22:48 Interpretation: paced hr [address] elevation qrs 213 qtc 516 Computer generated interpretation: Chest X-Ray 03/01/25 22:34 IMPRESSION: Stable moderate cardiomegaly. No pulmonary venous distension or interstitial edema. Discharge Plan Discharge Patient Disposition: Home Clinical Impression: Lower extremity edema Condition: Stable Prescriptions: No Action ropinirole 1 mg tablet 1 mg PO BID Qty: 60 2RF apixaban 2.5 mg tablet 2.5 mg PO BID 90 Days Qty: 180 1RF budesonide-formoterol [Symbicort] 160-4.5 mcg/actuation HFA aerosol inhaler 2 puff inhalation BID Qty: 10.2 0RF sertraline 100 mg tablet 100 mg PO QAM Qty: 30 2RF insulin aspart U-100 [Novolog FlexPen U-100 Insulin] 100 unit/mL (3 mL) insulin pen See Rx Instructions SUBCUT TID Qty: 15 0RF Rx Instructions: 150-200: 3 units 201-250: 5 units 251-300: 7 units 301-350: 9 units 351-400: 11 units pantoprazole 40 mg tablet,delayed release (DR/EC) 40 mg PO BID 30 Days Qty: 60 5RF sucralfate [Carafate] 1 gram tablet 1 g PO BID 30 Days Qty: 60 5RF spironolactone 25 mg tablet 25 mg PO DAILY Qty: 90 1RF metoprolol succinate 25 mg tablet extended release 24 hr 25 mg PO DAILY Qty: 30 0RF bumetanide 1 mg tablet See Rx Instructions .ROUTE .COMPLEX Qty: 60 0RF Dose Instruction: Take 1 tablet by mouth twice daily Rx Instructions: Take 1 tablet by mouth twice daily (DME) pen needle, diabetic 31 gauge x 5/16 needle See Rx Instructions .Route Qty: 1200 0RF Rx Instructions: TO BE USED WITH INSULIN E11.9 (DME) Blood Glucose Test Strip See Rx Instructions .MEDSUPPLY Qty: 200 12RF Rx Instructions: Use as directed with glucometer to check blood sugar twice daily E11.9 allopurinol 300 mg tablet 300 mg PO QAM amiodarone [Pacerone] 200 mg Tablet 200 mg PO DAILY Qty: 60 3RF carvedilol 12.5 mg tablet 25 mg PO BID rosuvastatin 40 mg tablet 40 mg PO BEDTIME dapagliflozin propanediol [Farxiga] 10 mg tablet 10 mg PO DAILY potassium citrate 10 mEq (1,080 mg) tablet extended release 20 meq PO BID Rx Instructions: Take 2 tablets by mouth twice daily pantoprazole 40 mg tablet,delayed release (DR/EC) 40 mg PO DAILY Rx Instructions: Take 1 tablet by mouth twice daily insulin glargine [Lantus Solostar U-100 Insulin] 100 unit/mL (3 mL) insulin pen 20 unit SUBCUT BID cefadroxil 500 mg capsule 500 mg PO BID levocetirizine 5 mg tablet 5 mg PO DAILY Discharge Orders: Discharge ED (Routine); Ordered 03/01/25 Ordered By: Gurvinder Felton Referrals: Lucrecia Blandon FNP [Primary Care Provider] - 4-7 days Discharge Diet: Advance as tolerated Discharge Activity: Resume usual activity Patient Instructions: Leg Edema (ED) Print Language: Congolese Coding Level of Care Code ED Frame Stripper And Crusher for Ck Crooks
[2025-03-01] MEDS: FUROsemide 10 mg/mL SDV 10mL 80 MG IVP (22:59)
[2025-03-01 23:00] LABS: Basophils % 0.1 %; Hematocrit 38.7 % (37-53); Lymphocytes # 0.8 10^3/uL (0.8-4.8); Lymphocytes % 8.1 %; Mean Corpuscular HGB Conc 30.2 g/dL (30-55); Mean Corpuscular Hemoglobin 22.6 pg (27-33); Mean Corpuscular Volume 74.9 fl (82-101); Mean Platelet Volume 10.8 fL (7.4-10.4); Monocytes % 10.1 %; Neutrophils # 8.27 10^3/uL (1.8-7.7); Neutrophils % 81.2 %; Nucleated Red Blood Cells % 0.2 %; Platelet Count 280 10^3/cmm (157-399); Red Blood Count 5.17 10^6/uL (3.85-5.65); White Blood Count 10.18 10^3/uL (3.29-11.43)
[2025-03-01 23:10] VITALS: BP 116/68; PULSE 98; O2SAT 97
[2025-03-01 23:12] LABS: INR 1.98 (0.8-1.2)
[2025-03-01 23:27] LABS: Alanine Aminotransferase 138 U/L (0-41); Albumin Level 3.5 g/dL (3.5-5.2); Alkaline Phosphatase 331 U/L (40-130); Anion Gap 19.5 (5-19); Aspartate Amino Transferase 350 U/L (0-40); Blood Urea Nitrogen 31 mg/dL (8-23); Calcium 9.2 mg/dL (8.5-10.5); Carbon Dioxide 24 mmol/L (22-29); Chloride 92 mmol/L (98-107); Creatinine Clr Calc Pharmacy 36.9191; Globulin 3.3 g/dL (1.3-4.6); Glomerular Filtration Rate 28.8 mL/min (90-130); Glucose 145 mg/dL (65-115); NT Pro B Type Natriuretic Pept 8143 pg/mL (0-125); Osmolality Calculated 283 mOsm/kg (285-295); Potassium 3.5 mmol/L (3.5-5.1); Sodium 132 mmol/L (136-145); Total Protein 6.8 g/dL (6.6-8.7)
[2025-03-02 00:11] VITALS: BP 108/69; PULSE 98; O2SAT 98
== END 2025-03-02 00:13 | disposition home or self-care (01) ==
PROVIDERS: Emergency Provider Emergency Medicine; PCP Nurse Practitioner Family
DX: R60.0 Localized edema (principal); Z79.4 Long term (current) use of insulin; Z95.0 Presence of cardiac pacemaker; J44.9 Chronic obstructive pulmonary disease, unspecified; Z86.73 Personal history of transient ischemic attack (TIA), and cerebral infarction without residual deficits; E11.9 Type 2 diabetes mellitus without complications; I11.0 Hypertensive heart disease with heart failure; I50.9 Heart failure, unspecified
CPT/HCPCS: 36415; 71045; 80053; 83880; 85025; 85610; 93005; 96374; 99285; J1938

== ENCOUNTER 2025-03-05 19:22 | Inpatient (IN) | payer MEDICAID, SELFPAY ==
[2025-01-05 11:34] VITALS: BP 100/60; BMI 39.6
[2025-03-05 19:29] VITALS: BP 95/60; PULSE 89; RESP 20; TEMP 36.9; O2SAT 95; BMI 49.9
--- NOTE | 2025-03-05 20:00 | XRR_ITS ---
PROCEDURE INFORMATION: Exam: XR Chest Exam date and time: 03/05/2025 8:09 PM Age: 64 years old Clinical indication: Injury or trauma; Fall; Blunt trauma (contusions or hematomas); Prior surgery; Surgery date: 6+ months; Surgery type: Pacemaker/defib TECHNIQUE: Imaging protocol: Radiologic exam of the chest. Views: 1 view. COMPARISON: CR (CHEST, ) 03/01/2025 10:55 PM FINDINGS: Tubes, catheters and devices: Cardiac pacemaker device overlying the right chest wall. Lungs: No lobar consolidation. Pleural spaces: Unremarkable. No pleural effusion. No pneumothorax. Heart/Mediastinum: Cardiomegaly. Bones/joints: Unremarkable. Other findings: Mild congestive changes. XR/XR chest 1V portable [id number] IMPRESSION: As above.
--- NOTE | 2025-03-05 20:06 | ECG_ITS ---
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
--- NOTE | 2025-03-05 20:23 | W.ED.FALL ---
HPI - Fall General: Chief Complaint: Fall Stated Complaint: FALL Time Seen by Provider: 03/05/25 19:31 History of Present Illness: 64-year-old gentleman with a history of insulin-dependent diabetes, heart failure, stroke affecting his speech, on anticoagulation. He presents with increased swelling to his feet, generalized weakness. He fell at home today, because he is having trouble walking due to the swelling in his feet he says. He did not hit his head in the fall. He believes he hurt his low back to some degree. His feet have been increasingly swollen, and he has been generally weak. He has not been having fevers, coughs, vomiting, etc. He usually gets around with a walker. Related Data Home Medications ?Medication ?Instructions ?Recorded ?Confirmed allopurinol 300 mg tablet 300 mg PO QAM 08/17/24 02/28/25 rosuvastatin 40 mg tablet 40 mg PO BEDTIME 12/22/24 02/28/25 potassium citrate 10 mEq (1,080 20 meq PO BID 02/10/25 02/28/25 mg) tablet,extended release cefadroxil 500 mg capsule 500 mg PO BID 02/19/25 02/28/25 insulin glargine 100 unit/mL (3 20 unit SUBCUT BID 02/19/25 02/28/25 mL) subcutaneous pen (Lantus Solostar U-100 Insulin) levocetirizine 5 mg tablet 5 mg PO DAILY 02/19/25 02/28/25 Previous Rx's ?Medication ?Instructions ?Recorded budesonide-formoterol HFA 160 2 puff inhalation BID #10.2 grams 09/22/24 mcg-4.5 mcg/actuation aerosol inhaler (Symbicort) amiodarone 200 mg tablet ([place]) 200 mg PO DAILY #60 tabs 10/09/24 spironolactone 25 mg tablet 25 mg PO DAILY #90 tabs 10/29/24 metoprolol succinate 25 mg 25 mg PO DAILY #30 tabs 11/11/24 tablet,extended release 24 hr ropinirole 1 mg tablet 1 mg PO BID #60 tabs 12/13/24 insulin aspart U-100 100 unit/mL See Rx Instructions SUBCUT TID #15 01/05/25 (3 mL) subcutaneous pen (Novolog mL FlexPen U-100 Insulin aspart) bumetanide 1 mg tablet See Rx Instructions .Route 02/21/25 .COMPLEX #60 tabs sertraline 100 mg tablet 100 mg PO QAM #30 tabs 02/23/25 blood sugar diagnostic (Blood #200 ea 02/25/25 Glucose Test strips) pen needle, diabetic 31 gauge x #1,200 ea 02/25/2516 pantoprazole 40 mg tablet,delayed 40 mg PO BID 30 days #60 tabs 02/28/25 release sucralfate 1 gram tablet (Carafate) 1 g PO BID 30 days #60 tabs 02/28/25 Farxiga 10 mg tablet See Rx Instructions .Route 03/03/25 (dapagliflozin propanediol) .COMPLEX #90 tabs pantoprazole 40 mg tablet,delayed See Rx Instructions .Route 03/03/25 release .COMPLEX #60 tabs apixaban 2.5 mg tablet 2.5 mg PO BID 90 days #180 tabs 03/04/25 Allergies Allergy/AdvReac Type Severity Reaction Status Date / Time isosorbide Allergy unknown Verified 03/01/25 22:48 Penicillins AdvReac rash Verified 03/01/25 22:48 [facility] ED [facility]: Medical History Endocarditis pacemaker lead infection. Treated in COPD (chronic obstructive pulmonary disease) Cardiomyopathy Coronary artery disease Type 2 diabetes mellitus Cardiac resynchronization therapy defibrillator (CEPHALOMETRIC ANALYST-D) in place [place] [address] [place], 07/11/2020 Mixed hyperlipidemia Hypertension CVA (cerebral vascular accident) PVCs (premature ventricular contractions) Hypomagnesemia Infarction of spleen Nausea & vomiting Gastroparesis Major depressive disorder, recurrent episode, mild degree Major depressive disorder in partial remission Allergic rhinitis Bipolar II disorder Diabetes Non-ST elevation [place] (NSTEMI) Uses bilevel positive airway pressure (BPAP) ventilation at home 12/8cm Dysarthria Unstable angina Nonischemic congestive cardiomyopathy Chronic low back pain Elevated blood uric acid level History of sleep study 2017 at [facility]: Optimal pressure settings with BiPAP found to be 12/8 cm COVID-19 Wound infection following procedure infection with defibrillator lead revision, removed , scarring left subclavian area from this GERD (gastroesophageal reflux disease) ALBERTO (obstructive sleep apnea) C. difficile diarrhea Cataracts, bilateral CHF (congestive heart failure) Urolithiasis Multi stone former, calcium oxalate mono and dihydrate. Also calcium phosphate. Multiple interventions including endoscopy with laser lithotripsy and ESWL. Metabolic treatment with potassium citrate Hemorrhoids Psychiatric care Right ureteral calculus Osteoarthritis of hands, bilateral Pacemaker Surgical History S/P epidural steroid injection Status post hemorrhoidectomy Hx of umbilical hernia repair Hx of lithotripsy History of urethral stent H/O esophagogastroduodenoscopy (02/27/21) gastritis, duodenitis History of colonoscopy (02/27/21) descending colon polyp, hemorrhoids History of carpal tunnel release of both wrists History of permanent cardiac pacemaker placement Hx of cataract surgery Hx of shoulder surgery Family History Grandfather CAD (coronary artery disease) Brother Cancer colon cancer Diabetes Mother Diabetes Father No problems noted. Other Hypertension Rheumatoid arthritis Social History Smoking and tobacco/nicotine status: never used tobacco/nicotine Second hand smoke exposure: No Alcohol intake: former Year of sobriety/quit date alcohol: 1997 Substance/Drug Use: former Date of last use: 1997 Caregiver/support person: Yes Lives independently: Yes Household members: spouse Marital status: service: No Current occupational status: disabled Current gender identity: Male Special fernando needs: No Agree to transfusion: Yes Physical Exam Const: GENERAL APPEARANCE: cooperative and frail appearing (Mild); not ill appearing HENMT: COMMON NORMALS: normocephalic, atraumatic and Normal external nose present HEAD & SCALP: normocephalic and atraumatic FACE & SINUS: normal facial exam and face symmetric NOSE: Normal external nose present Eye: COMMON NORMALS: Equal, round and reactive pupils present and EOMs intact bilaterally PUPIL: Yes Equal, round and reactive pupils present Neck/C-Spine: GENERAL: Yes trachea midline Chest: CHEST: Yes Symmetrical chest wall rise Resp: COMMON NORMALS: normal respiratory effort, No retractions, No use of accessory muscles and clear to auscultation bilaterally AUSCULTATION: clear to auscultation bilaterally Cardio: COMMON NORMALS: regular rate and regular rhythm RATE: regular rate RHYTHM: regular rhythm GI: COMMON NORMALS: Normal to inspection, nondistended, normoactive bowel sounds present Extremity: NARRATIVE EXTREMITY EXAM: 2-3+ pitting edema Neuro: BRYANT COMA SCALE: document GCS findings Friedens coma scale eye opening: Spontaneous Friedens coma scale verbal response: Orientated Bryant coma scale motor response: Obey commands Friedens coma scale total score: 15 SENSORY EXAM: Yes extremities (intact) Psych: COMMON NORMALS: speech normal SPEECH: Yes normal speech Skin: COMMON NORMALS: no rashes or lesions noted GENERAL SKIN EXAM: no rashes or lesions noted Course Vital Signs: Vital signs: Vital Signs Temperature 97.2 F L 03/06/25 02:30 Pulse Rate 99 03/06/25 02:32 Respiratory Rate 30 H 03/06/25 02:30 Blood Pressure 97/58 03/06/25 02:32 Pulse Oximetry 96 03/06/25 02:32 Oxygen Delivery Me thod Room Air 03/06/25 02:27 MDM - Fall Medical Decision Making Patient is somewhat somnolent. Answers questions appropriately. Blood pressure is mildly soft. His white blood cell count is 28.2. His CRP is in the 190s. His lactic acid is elevated. His creatinine is up to 3.3. Sodium is 124. He has significant bilateral edema. Initially was given Lasix. On cathing for urinalysis, he only put out 50 cc. He has had 3 L of fluid. He was not given a full 30 mL/kg sepsis bolus, as the patient weighs 130 kg, more ideal body weight bolus was used. His liver enzymes are significantly elevated. CT of the abdomen and pelvis does not show a clear cause of infection, or hyperbilirubinemia/transaminitis. His chest x-ray is negative for infiltrate. He is covered with Levaquin and meropenem. He is allergic to penicillins. Out of the ICU. He will go to the ICU. Hospitalist has seen the patient in the ER. Lab Data 03/05/25 20:45 03/05/25 20:45 Radiology Impressions Chest X-Ray 03/05/25 20:00 IMPRESSION: As above. Abdomen/Pelvis CT 03/05/25 22:01 IMPRESSION: 1. Decreased size of splenic cyst. 2. No acute findings in the abdomen or pelvis. 3. Left nephrolithiasis 4. Collapsed gallbladder without ductal dilatation. Laboratory Results WBC 28.20 10^3/uL (3.29-11.43) H 03/05/25 20:45 RBC 5.23 10^6/uL (3.85-5.65) 03/05/25 20:45 Hgb 11.80 g/dL (11.27-16.99) 03/05/25 20:45 Hct 37.3 % (37-53) 03/05/25 20:45 MCV 71.3 fl (82-101) L 03/05/25 20:45 MCH 22.6 pg (27-33) L 03/05/25 20:45 MCHC 31.6 g/dL (30-55) 03/05/25 20:45 RDW 19.9 % (12.1-15.1) H 03/05/25 20:45 Plt Count 207 10^3/cmm (157-399) 03/05/25 20:45 MPV 10.7 fL (7.4-10.4) H 03/05/25 20:45 Neut % (Auto) 93.3 % 03/05/25 20:45 Lymph % (Auto) 0.7 % 03/05/25 20:45 [place] % (Auto) 2.6 % 03/05/25 20:45 Eos % (Auto) 0.1 % 03/05/25 20:45 Baso % (Auto) 0.2 % 03/05/25 20:45 Neut # (Auto) 26.32 10^3/uL (1.8-7.7) H 03/05/25 20:45 Lymph # (Auto) 0.2 10^3/uL (0.8-4.8) L 03/05/25 20:45 [place] # (Auto) 0.7 10^3/uL (0.2-0.9) 03/05/25 20:45 Eos # (Auto) 0.0 10^3/uL (0.0-0.8) 03/05/25 20:45 Baso # (Auto) 0.1 10^3/uL (0.0-0.1) 03/05/25 20:45 Nucleated RBC % (auto) 0.2 % 03/05/25 20:45 Nucleated RBCs # 0.1 /100WBC 03/05/25 20:45 ESR 87 mm/hr (0-10) H 03/05/25 20:45 PT 31.20 SECONDS (12.1-14.9) H 03/05/25 20:45 INR 2.81 (0.8-1.2) H 03/05/25 20:45 APTT 50.2 SECONDS (23.9-36.7) H 03/05/25 20:45 Sodium 124 mmol/L (136-145) L 03/05/25 20:45 Potassium 3.5 mmol/L (3.5-5.1) 03/05/25 20:45 Chloride 85 mmol/L (98-107) L 03/05/25 20:45 Carbon Dioxide 20 mmol/L (22-29) L 03/05/25 20:45 Anion Gap 22.5 (5-19) H 03/05/25 20:45 BUN 43 mg/dL (8-23) H 03/05/25 20:45 Creatinine 3.3 mg/dL (0.7-1.2) H 03/05/25 20:45 GFR Calculation 19.0 mL/min (90-130) L 03/05/25 20:45 Glucose 118 mg/dL (65-115) H 03/05/25 20:45 Calculated Osmolality 270 mOsm/kg (285-295) L 03/05/25 20:45 Lactic Acid 3.6 mmol/L (0.5-2.2) H 03/05/25 20:49 Lactic Acid (Sepsis) 3.2 mmol/L (0.5-2.2) H 03/06/25 00:19 Calcium 8.3 mg/dL (8.5-10.5) L 03/05/25 20:45 Magnesium 2.3 mg/dL (1.7-2.3) 03/05/25 20:45 Total Bilirubin 6.3 mg/dL (0.15-1.2) H 03/05/25 20:45 AST 2648 U/L (0-40) H 03/05/25 20:45 ALT 548 U/L (0-41) H 03/05/25 20:45 Alkaline Phosphatase 486 U/L (40-130) H 03/05/25 20:45 C-Reactive Protein 189.8 mg/L (0.0-4.9) H 03/05/25 20:45 NT-Pro-B Natriuret Pep 16625 pg/mL (0-125) H 03/05/25 20:45 Total Protein 5.8 g/dL (6.6-8.7) L 03/05/25 20:45 Albumin 2.6 g/dL (3.5-5.2) L 03/05/25 20:45 Globulin 3.2 g/dL (1.3-4.6) 03/05/25 20:45 Procalcitonin 4.23 ng/mL (0-0.5) H 03/05/25 20:45 TSH 1.16 uIU/mL (0.27-4.20) 03/05/25 20:45 Urine Color Dark yellow (Yellow) A 03/05/25 22:51 Urine Appearance Cloudy (CLEAR) A 03/05/25 22:51 Urine pH 6.0 (5-7) 03/05/25 22:51 Ur Specific [place] 1.017 (1.005-1.030) 03/05/25 22:51 Urine Protein 3+ (Negative) A 03/05/25 22:51 Urine Glucose (UA) 3+ (Normal) H 03/05/25 22:51 Urine Ketones Negative (Negative) 03/05/25 22:51 Urine Blood 3+ (Negative) A 03/05/25 22:51 Urine Nitrate Negative (Negative) 03/05/25 22:51 Urine Bilirubin Negative (Negative) 03/05/25 22:51 Urine Urobilinogen 1.0 mg/dL (Negative) 03/05/25 22:51 Ur Leukocyte Esterase Negative (Negative) 03/05/25 22:51 Urine RBC 3-5 /hpf (0-2) 03/05/25 22:51 Urine WBC 0-5 /hpf (0-5) 03/05/25 22:51 Ur Squamous Epith Cells 6-10 /hpf (0-5) 03/05/25 22:51 Amorphous Sediment 2+ /hpf 03/05/25 22:51 Urine Bacteria None seen /hpf (NONE) 03/05/25 22:51 Hyaline Casts 4.52 /lpf 03/05/25 22:51 Coarse Granular Casts 0-4 /lpf H 03/05/25 22:51 All radiology interpretation(s) finalized by discharge Critical Care Time Critical Care Time: Critical Care Time: Yes Total Critical Care Time: 35 Attestation: This case had a high probability of a clinically significant, sudden, or life threatening deterioration of this patient's condition which required my full and direct attention, intervention and personal management. Time is independent of any procedures performed. Discharge Plan Discharge Patient Disposition: Admitted As Inpatient Admit Provider: Milton Skinner Clinical Impression: Acute kidney injury superimposed on CKD, Hyperbilirubinemia, Sepsis Condition: Serious Coding Level of Care Code ED Paper Machine Back Tender for Ck Crooks
[2025-03-05] MEDS: FUROsemide 10 mg/mL SDV 10mL 60 MG IVP (20:24)
[2025-03-05 20:55] LABS: Basophils # 0.1 10^3/uL (0.0-0.1); Basophils % 0.2 %; Eosinophils % 0.1 %; Hematocrit 37.3 % (37-53); Lymphocytes # 0.2 10^3/uL (0.8-4.8); Lymphocytes % 0.7 %; Mean Corpuscular HGB Conc 31.6 g/dL (30-55); Mean Corpuscular Hemoglobin 22.6 pg (27-33); Mean Corpuscular Volume 71.3 fl (82-101); Mean Platelet Volume 10.7 fL (7.4-10.4); Monocytes # 0.7 10^3/uL (0.2-0.9); Monocytes % 2.6 %; Neutrophils # 26.32 10^3/uL (1.8-7.7); Neutrophils % 93.3 %; Nucleated Red Blood Cells # 0.1 /100WBC; Nucleated Red Blood Cells % 0.2 %; Platelet Count 207 10^3/cmm (157-399); Red Blood Count 5.23 10^6/uL (3.85-5.65); Red Cell Distribution Width 19.9 % (12.1-15.1)
[2025-03-05 21:10] LABS: INR 2.81 (0.8-1.2)
[2025-03-05 21:11] LABS: Partial Thromboplastin Time 50.2 SECONDS (23.9-36.7)
[2025-03-05 21:23] LABS: Alanine Aminotransferase 548 U/L (0-41); Albumin Level 2.6 g/dL (3.5-5.2); Alkaline Phosphatase 486 U/L (40-130); Anion Gap 22.5 (5-19); Blood Urea Nitrogen 43 mg/dL (8-23); C Reactive Protein 189.8 mg/L (0.0-4.9); Calcium 8.3 mg/dL (8.5-10.5); Carbon Dioxide 20 mmol/L (22-29); Chloride 85 mmol/L (98-107); Creatinine Clr Calc Pharmacy 29.2137; Globulin 3.2 g/dL (1.3-4.6); Glucose 118 mg/dL (65-115); Magnesium 2.3 mg/dL (1.7-2.3); NT Pro B Type Natriuretic Pept 14846 pg/mL (0-125); Osmolality Calculated 270 mOsm/kg (285-295); Potassium 3.5 mmol/L (3.5-5.1); Sodium 124 mmol/L (136-145); Total Bilirubin 6.3 mg/dL (0.15-1.2); Total Protein 5.8 g/dL (6.6-8.7)
[2025-03-05 21:32] LABS: Aspartate Amino Transferase 2648 U/L (0-40)
--- NOTE | 2025-03-05 22:01 | CTR_ITS ---
PROCEDURE INFORMATION: Exam: CT Abdomen And Pelvis With Contrast Exam date and time: 03/05/2025 10:59 PM Age: 64 years old Clinical indication: Pain and abnormal findings; Abnormal lab test; Elevated wbc and other: Hyperbilirubinemia; Bloating; Abdominal pain; Generalized; Prior surgery; Surgery date: 6+ months; Surgery type: Pacer. Hernia repair; Diffuse abd pain with distention. Wbc of 29k with bilirubin of 6.3. ; Additional info: Abd distension, hyperbilirubinemia TECHNIQUE: Imaging protocol: Computed tomography of the abdomen and pelvis with contrast. Radiation optimization: All CT scans at this facility use at least one of these dose optimization techniques: automated exposure control; mA and/or kV adjustment per patient size (includes targeted exams where dose is matched to clinical indication); or iterative reconstruction. Contrast material: OMNI 350; Contrast volume: 80 ml; Contrast route: INTRAVENOUS (IV); COMPARISON: CT abdomen pelvis w con* [id number] 09/14/2024 7:59 PM RADIATION DOSE METRICS: Total DLP (mGy-cm): 2214.65 FINDINGS: Tubes, catheters and devices: There is transvenous AICD in place with leads in appropriate position. Lungs: There is mild dependent atelectasis at the lung bases. Heart: The heart is moderately enlarged. Liver: There is a 2.5 cm sized benign-appearing simple cyst arising from the inferior tip of the right lobe of the liver, larger than on 09/12/2024. Gallbladder and biliary ducts: Gallbladder is totally empty without any fluid inside. There is no common bile duct dilation. Pancreas: The pancreas is normal. Spleen: Cystic splenic mass measures 2.6 x 2.9 cm, previously 5.3 x 5.4 cm. This may represent resolving splenic infarct and is decreased significantly in size since it 1st appeared on 03/07/2024. There is small nonspecific hypodensity inferior tip of the spleen not significantly changed since 09/14/2024. Adrenal glands: The adrenal glands are normal. Kidneys and ureters: There are multiple areas of cortical scarring in both kidneys. There is a calcification lower pole left kidney consistent with nonobstructing stone in the lower pole calyx not significantly changed. There is no evidence of hydronephrosis. There is no stone along the course of either ureter. Stomach and bowel: There is no evidence of colitis/diverticulitis. There is no evidence of intestinal obstruction. Appendix: A normal appendix is identified. Intraperitoneal space: There is no evidence of free intraperitoneal fluid. Vasculature: The aorta demonstrates mild atherosclerotic calcification. There is no evidence of an abdominal aortic aneurysm. Lymph nodes: There is no evidence of lymphadenopathy. Urinary bladder: There is mild thickening of the urinary bladder wall. Please correlate for any clinical signs or symptoms of urinary tract infection. Reproductive: Unremarkable as visualized. Bones/joints: The lumbar spine demonstrates mild degenerative changes at multiple levels. There is no evidence of acute fracture. Soft tissues: There is small left inguinal hernia containing only fat. CT/CT abdomen pelvis w con* [id number] IMPRESSION: 1. Decreased size of splenic cyst. 2. No acute findings in the abdomen or pelvis. 3. Left nephrolithiasis 4. Collapsed gallbladder without ductal dilatation.
[2025-03-05 22:57] VITALS: BP 88/59; PULSE 94; RESP 14; O2SAT 95
[2025-03-05 23:01] LABS: Bilirubin Urine Negative (Negative); Blood Urine 3+ (Negative); Glucose Urine UA 3+ (Normal); Ketones Urine Negative (Negative); Leukocyte Esterase Urine Negative (Negative); Nitrate Urine Negative (Negative); Protein Urine 3+ (Negative); Specific Gravity, Urine 1.017 (1.005-1.030); Urine Appearance Cloudy (CLEAR); Urine Color Dark Yellow (Yellow)
[2025-03-05 23:03] LABS: Add Urine Microscopic? YES; Bacteria Urine None Seen /hpf; Hyaline Casts Urine 4.52 /lpf; WBC Urine 0-5 /hpf (0-5)
[2025-03-05] MEDS: iohexol 350 mg/mL 500 mL Btl (per mL) IV (23:03)
[2025-03-05] MEDS: sodium chloride 0.9% 1,000 ML 999 ML IV ×2 (23:22→23:27)
[2025-03-05 23:25] LABS: Add Urine Culture? No; Amorphous Sediment Urine 2+ /hpf; Coarse Granular Casts Urine 0-4 /lpf; UA Slide Review UA Slide Review Perf
[2025-03-05 23:32] LABS: Lactic Sepsis W/Reflex 3.6 mmol/L (0.5-2.2)
[2025-03-05 23:37] VITALS: BP 104/57; PULSE 96; RESP 18; O2SAT 93
[2025-03-05 23:42] VITALS: BP 104/57; PULSE 90; RESP 22; O2SAT 92
[2025-03-05 23:45] VITALS: BP 104/57; PULSE 88; RESP 27; O2SAT 90
[2025-03-05 23:50] VITALS: BP 104/57; PULSE 95; RESP 21; O2SAT 90
[2025-03-06] VITALS (88 sets, daily range): BP systolic 58–121; BP diastolic 24–89; PULSE 86–108; RESP 20–34; TEMP 36.2–36.9; O2SAT 80–98; BMI 42.2
--- NOTE | 2025-03-06 00:16 | PM.HP ---
Providers/Chief Complaint Primary Care Provider: ANDRES Pettit Chief Complaint: FALL History of Present Illness Amrik Alexander is a 64 year old male with a past medical history significant for 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 Patient is awake and alert but slightly lethargic. His daughter and spouse are bedside and provide collateral information. They noted gradual decline over the past several weeks and his overall strength. They report very poor oral intake with associated nausea and vomiting. They report despite poor oral intake, his lower extremities have continued to swell severely. He states that he is severely weak and now falling when he tries to ambulate. Endorses associated acute on chronic back pains. He denies fevers, chills, coughing or chest pains. Patient's been seen multiple times in the emergency department for similar ailments over the last several weeks. In the emergency department, vitals were significant for tachypnea, borderline hypoxia, soft blood pressure. Labs revealed severe leukocytosis to 28.2, previously normal at 10.18 on 03/01. Labs showed hyponatremia to 124, hypochloremia, metabolic acidosis, azotemia, worsening creatinine, lactic acidosis, hyperbilirubinemia, and transaminitis. NT-proBNP was 14,846 pg/mL. CRP 189.8 mg/mL. Urinalysis was negative for evidence of infection. Plain chest x-ray showed cardiomegaly. CT of abdomen and pelvis with contrast showed decreased size of splenic cyst without acute findings in the abdomen or pelvis. Family reports a history of endocarditis approximately 1 year ago. They states that he is on chronic antibiotic treatment for which he has been compliant with may be missing 1 dose. Review of Systems Narrative: A complete review of systems was obtained and is negative except as stated in HPI. Medications/Allergies Home Medications ?Medication ?Instructions ?Recorded ?Confirmed ?Last Taken ?Type allopurinol 300 mg tablet 300 mg PO QAM 08/17/24 02/28/25 02/19/25 History budesonide-formoterol HFA 160 2 puff inhalation BID #10.2 grams 09/22/24 02/28/25 Unknown Rx mcg-4.5 mcg/actuation aerosol inhaler (Symbicort) amiodarone 200 mg tablet (Pacerone) 200 mg PO DAILY #60 tabs 10/09/24 02/28/25 02/19/25 Rx spironolactone 25 mg tablet 25 mg PO DAILY #90 tabs 10/29/24 02/28/25 02/19/25 Rx metoprolol succinate 25 mg 25 mg PO DAILY #30 tabs 11/11/24 02/28/25 02/19/25 Rx tablet,extended release 24 hr ropinirole 1 mg tablet 1 mg PO BID #60 tabs 12/13/24 02/28/25 02/19/25 Rx rosuvastatin 40 mg tablet 40 mg PO BEDTIME 12/22/24 02/28/25 02/19/25 History insulin aspart U-100 100 unit/mL See Rx Instructions SUBCUT TID #15 01/05/25 02/28/25 02/14/25 Rx (3 mL) subcutaneous pen (Novolog mL FlexPen U-100 Insulin aspart) potassium citrate 10 mEq (1,080 20 meq PO BID 02/10/25 02/28/25 02/19/25 History mg) tablet,extended release cefadroxil 500 mg capsule 500 mg PO BID 02/19/25 02/28/25 Unknown History insulin glargine 100 unit/mL (3 20 unit SUBCUT BID 02/19/25 02/28/25 Unknown History mL) subcutaneous pen (Lantus Solostar U-100 Insulin) levocetirizine 5 mg tablet 5 mg PO DAILY 02/19/25 02/28/25 Unknown History bumetanide 1 mg tablet See Rx Instructions .Route 02/21/25 02/28/25 Unknown Rx .COMPLEX #60 tabs sertraline 100 mg tablet 100 mg PO QAM #30 tabs 02/23/25 02/28/25 Unknown Rx blood sugar diagnostic (Blood #200 ea 02/25/25 02/28/25 Unknown Rx Glucose Test strips) pen needle, diabetic 31 gauge x #1,200 ea 02/25/25 02/28/25 Unknown Rx 03/25 pantoprazole 40 mg tablet,delayed 40 mg PO BID 30 days #60 tabs 02/28/25 02/28/25 Unknown Rx release sucralfate 1 gram tablet (Carafate) 1 g PO BID 30 days #60 tabs 02/28/25 02/28/25 Unknown Rx Farxiga 10 mg tablet See Rx Instructions .Route 03/03/25 Unknown Rx (dapagliflozin propanediol) .COMPLEX #90 tabs pantoprazole 40 mg tablet,delayed See Rx Instructions .Route 03/03/25 Unknown Rx release .COMPLEX #60 tabs apixaban 2.5 mg tablet 2.5 mg PO BID 90 days #180 tabs 03/04/25 Unknown Rx Allergies Allergy/AdvReac Type Severity Reaction Status Date / Time isosorbide Allergy unknown Verified 03/01/25 22:48 Penicillins AdvReac rash Verified 03/01/25 22:48 PFSH Acute PFSH: Medical History Endocarditis pacemaker lead infection. Treated in COPD (chronic obstructive pulmonary disease) Cardiomyopathy Coronary artery disease Type 2 diabetes mellitus Cardiac resynchronization therapy defibrillator ([employer]ORDINATOR-D) in place [employer] [place], 07/11/2020 Mixed hyperlipidemia Hypertension CVA (cerebral vascular accident) PVCs (premature ventricular contractions) Hypomagnesemia Infarction of spleen Nausea & vomiting Gastroparesis Major depressive disorder, recurrent episode, mild degree Major depressive disorder in partial remission Allergic rhinitis Bipolar II disorder Diabetes Non-ST elevation GA (NSTEMI) Uses bilevel positive airway pressure (BPAP) ventilation at home 12/8cm Dysarthria Unstable angina Nonischemic congestive cardiomyopathy Chronic low back pain Elevated blood uric acid level History of sleep study 2017 at [facility]: Optimal pressure settings with BiPAP found to be 12/8 cm COVID-19 Wound infection following procedure infection with defibrillator lead revision, removed , scarring left subclavian area from this GERD (gastroesophageal reflux disease) ALBERTO (obstructive sleep apnea) C. difficile diarrhea Cataracts, bilateral CHF (congestive heart failure) Urolithiasis Multi stone former, calcium oxalate mono and dihydrate. Also calcium phosphate. Multiple interventions including endoscopy with laser lithotripsy and ESWL. Metabolic treatment with potassium citrate Hemorrhoids Psychiatric care Right ureteral calculus Osteoarthritis of hands, bilateral Pacemaker Surgical History S/P epidural steroid injection Status post hemorrhoidectomy Hx of umbilical hernia repair Hx of lithotripsy History of urethral stent H/O esophagogastroduodenoscopy (02/27/21) gastritis, duodenitis History of colonoscopy (02/27/21) descending colon polyp, hemorrhoids History of carpal tunnel release of both wrists History of permanent cardiac pacemaker placement Hx of cataract surgery Hx of shoulder surgery Family History Grandfather CAD (coronary artery disease) Brother Cancer colon cancer Diabetes Mother Diabetes Father No problems noted. Other Hypertension Rheumatoid arthritis Social History Smoking and tobacco/nicotine status: never used tobacco/nicotine Second hand smoke exposure: No Alcohol intake: former Year of sobriety/quit date alcohol: 1997 Substance/Drug Use: former Date of last use: 1997 Caregiver/support person: Yes Lives independently: Yes Household members: spouse Marital status: service: No Current occupational status: disabled Current gender identity: Male Special fernando needs: No Agree to transfusion: Yes Vitals/I&O/Wt Last Vital Signs Temp 98.4 F 03/05/25 19:29 Pulse 95 03/05/25 23:50 Resp 21 H 03/05/25 23:50 BP 104/57 03/05/25 23:50 Pulse Ox 90 03/05/25 23:50 O2 Del Method Room Air 03/05/25 23:37 03/05/25 03/05/25 03/06/25 14:59 22:59 06:59 Intake Total 0 / 0 1000 / 1000 Balance 0 / 0 1000 / 1000 Weight last 48 hrs Weight 136.078 kg Physical Exam Narrative: General: Patient is awake but quickly lethargic upon interviewing. Afebrile. Head: Normocephalic. Atraumatic. Icteric sclera. Neck: JVD difficult to assess due to neck circumference. No nuchal rigidity appreciated. Cardiovascular: RRR. No gallops. No murmurs. 3-4+ pitting edema bilateral lower extremities. Lungs: Breath sounds slightly diminished, no use of accessory muscles, no crackles or wheezes. On nasal cannula support. Skin: No jaundice. No rashes. Abdomen: Normal bowel sounds, abdomen soft and nontender. Genito Urinary: Genital exam not performed since complaints not related. Rectal: Rectal exam not performed since no symptoms indicated blood loss. Extremities: No cyanosis or clubbing. Musculoskeletal: No erythematous joints. Neurological: Moves all 4 extremities. No myoclonus. Data 03/05/25 20:45 03/05/25 20:45 A&P Assessment and plan (1) Leukocytosis: Qualifiers: Leukocytosis type: unspecified Qualified Code(s): D72.829 - Elevated white blood cell count, unspecified (2) Acute kidney injury superimposed on CKD: (3) Transaminitis: (4) Congestive heart failure: Qualifiers: Heart failure chronicity: acute on chronic Heart failure type: combined systolic and diastolic Qualified Code(s): I50.43 - Acute on chronic combined systolic (congestive) and diastolic (congestive) heart failure (5) Type 2 diabetes mellitus: Qualifiers: Diabetes mellitus complication status: with other specified complication Diabetes mellitus alf insulin use: without terminal gauger supervisor use Qualified Code(s): E11.69 - Type 2 diabetes mellitus with other specified complication (6) Metabolic acidemia: (7) CVA (cerebral vascular accident): Qualifiers: CVA mechanism: unspecified Qualified Code(s): I63.9 - Cerebral infarction, unspecified (8) COPD (chronic obstructive pulmonary disease): (9) Anasarca: (10) Hyponatremia: (11) Acute metabolic encephalopathy: (12) Hyperbilirubinemia: Plan Suspected severe sepsis - SIRS: Leukocytosis, tachypnea, tachycardia - End organ damage: JACIEL, Transaminitis, Encephalopathy - Source: Unclear source - Lactic acidosis - Chest x-ray negative for pneumonia - CT abdomen pelvis negative for acute pathology - Urinalysis negative for evidence of infection - CRP is elevated - Check procalcitonin - Endocarditis is within differential, check stat echo - Status post IVF bolus in ED - Blood cultures - MRSA screening - Start Meropenem - Start linezolid - Close hemodynamic monitoring in ICU Anasarca History of heart failure with reduced ejection fraction Non-ischemic cardiomyopathy s/p AICD - Patient is grossly fluid overloaded on peripheral exam - Heart failure exacerbation is within differential; his intravascular volume status is difficult to assess - TTE (08/17/24) w/ LVEF 28%, IV/IV diastolic dysfunction w/ severely elevated filling pressures - Obtain updated echocardiogram as above - Strict I&O - Daily weights - Check urine sodium - Patient just received IVF bolus, will eventually need diuresis, timing TBD by clinical course Acute kidney injury on CKD - Recieved IVF in ED, will assess response - CrCl 44 - CT abd/pelvis reviewed - Strict I&O - Renally dose medications - Check urine electrolytes - Check CK - Proteinuria on urinalysis dip; nephrotic syndrome within ddx - Consider nephrology consult Transaminitis - CT imaging reviewed; check liver US - Suspect sepsis, congestive hepatopathy, hepatitis, DILI - Treat underlying sepsis - Evaluate cardiac function; attempt to optimize fluid status - Check acute hepatitis panel - Hold amiodarone and statin for now - Avoid hepatotoxins - Trend CMP Hyponatremia - Intravascular fluid status difficult to assess in the setting of anasarca - Check TSH - Urine lytes - Trend 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 - Afebrile - Broad spectum abx as above - BCx, echo Type 2 diabetes mellitus - Lantus at reduced home dose - SSI Hx of stroke with residual right hemiparesis Dysphagia - Monitor for aspiration - ABG pending due to lethargy Hx of paroxysmal atrial fibrillation Coagulatathy with elevated INR - Continue DOAC for stroke ppx - Continue metoprolol for rate control - Amiodarone held d/t elevated liver enzymes COPD without exacerbation - Pulmicort - DuoNeb PRN GERD - PPI, reduced dose - Continue carafate RLS - Requip, reduced dose DVT ppx: Apixaban Code: Full PDMP PDMP Reviewed: Not Reviewed Attestations Medical Necessity Statement*: Patient presents with generalized weakness, found to have ansarca, suspected sepsis sepsis and multiple other acute pathologies as above with expected hospitalization to cross two midnights for care. Coding Level of Care Code Acute Code for Chg Fwd Diagnoses Leukocytosis D72.829 Leukocytosis type: unspecified Acute kidney injury superimposed on CKD N17.9; N18.9 Transaminitis R74.01 Acute on chronic combined systolic and diastolic congestive heart failure I50.43 Heart failure chronicity: acute on chronic Heart failure type: combined systolic and diastolic Type 2 diabetes mellitus E11.69 Diabetes mellitus complication status: with other specified complication Diabetes mellitus terminal gauger supervisor insulin use: without terminal gauger supervisor use Metabolic acidemia E87.20 Cerebrovascular accident (CVA), unspecified mechanism I63.9 CVA mechanism: unspecified Chronic obstructive pulmonary disease, unspecified COPD type J44.9 Anasarca R60.1 Hyponatremia E87.1 Acute metabolic encephalopathy G93.41 Hyperbilirubinemia E80.6
[2025-03-06] MEDS: sodium chloride 0.9% 1,000 ML 999 ML IV (00:38)
[2025-03-06] MEDS: MEROPENEM 2,000 MG in sodium chloride 0.9% (plus) 50 ML 100 MG IV (00:42)
[2025-03-06] MEDS: levofloxacin-dextrose 5 % 500 MG/100 ML PREMIX 100 MG IV (00:54)
[2025-03-06 00:59] LABS: Reflex Lactate Order REFLEX LACTIC ORDERD
[2025-03-06 01:02] LABS: ABG PCO2 31.4 mmHg (35-45); ABG PH Result 7.45 (7.35-7.45); Arterial Blood Gas Hematocrit 35.1 % (42-52); Base Excess ABG -1.6 mmol/L (-2.0-2.0); Blood Gas Allen Test Pos; Blood Gas Sample Site Radial, right; Blood Gas Sample Type Arterial; HCO3 ABG 21.7 mmol/L (22-26); Oxygen Device ROOM AIR; PO2 ABG 65.1 mmHg (80.0-100.0)
--- NOTE | 2025-03-06 01:37 | USR_ITS ---
PROCEDURE INFORMATION: Exam: US Abdomen, Limited; Right Upper Quadrant Exam date and time: 03/06/2025 11:10 AM Age: 64 years old Clinical indication: Abnormal findings; Abnormal lab test; Elevated liver enzymes; Additional info: Elevated liver enzymes of unclear etiology TECHNIQUE: Imaging protocol: Real time ultrasound of the abdomen with image documentation. Limited exam focused on the right upper quadrant. COMPARISON: US abdomen complete* [id number] 01/14/2024 9:31 AM FINDINGS: Liver: Normal. No masses. Gallbladder: Gallbladder is not well distended. No gallstones. Gallbladder wall measures up to 6 mm in thickness. Biliary ducts: Normal. No stones. No dilation. Pancreas: Visualized pancreas is unremarkable. Right kidney: Normal. No mass. No hydronephrosis. Intraperitoneal space: Trace free fluid around the liver. US/US liver [id number] IMPRESSION: 1. Prominence of the gallbladder wall which is nonspecific in the setting of underdistention. No gallstones are seen. 2. Trace free fluid.
--- NOTE | 2025-03-06 01:37 | USCV_ITS ---
Amrik Alexander Age: 64 Gender: M : 1960 Exam Date: 03/06/2025 09:43 Ordering Phys: Milton Skinner MD Technologist: Rafi Limon [place] [facility] [place]: eval for endocarditis BP: 106 / 55 HR: 100 Rhythm: Sinus Technical Quality: Adequate MEASUREMENTS (Male / Female) Normal Values 2D ECHO LV Diastolic Diameter PLAX 6.9 cm 4.2 - 5.9 / 3.9 - 5.3 cm IVS Diastolic Thickness 1.0 cm 0.6 - 1.0 / 0.6 - 0.9 cm IVS Systolic Thickness 0.9 cm LVPW Diastolic Thickness 1.9 cm 0.6 - 1.0 / 0.6 - 0.9 cm LVPW Systolic Thickness 2.8 cm LVOT Diameter 2.0 cm LV Ejection Fraction 2D Teich 34.9 % LV Ejection Fraction MOD 4C 33.3 % LV Ejection Fraction MOD 2C 31.8 % LV Ejection Fraction 2C AL 31.0 % LA Diameter 4.1 cm RA Systolic Volume 4C AL 91.2 ml RA Systolic Volume 4C MOD 90.2 ml Aorta at Sinotubular Diameter 2.7 cm IVC Diameter 1.9 cm M-MODE LA Ao Ratio MM 1.6 AV Cusp Separation MM 1.8 cm DOPPLER AV Peak Velocity 157.0 cm/s LVOT Peak Velocity 73.0 cm/s AV Area Cont Eq vti 2.2 cm squared AV Area Cont Eq pk 1.5 cm squared MV Peak Velocity 99.0 cm/s MV Area PHT 6.1 cm squared Mitral E to A Ratio 2.5 TV Peak Velocity 311.0 cm/s TR Peak Velocity 311.0 cm/s TR Peak Gradient 38.7 mmHg TR Mean Velocity 217.0 cm/s TR Mean Gradient 22.4 mmHg TR Velocity Time Integral 69.3 cm PV Peak Velocity 120.0 cm/s RV Ejection Time 0.2 s FINDINGS Left Ventricle Severely increased left ventricular cavity size. Severely decreased left ventricular systolic function. Left ventricular ejection fraction is estimated at 10-15 %. Global left ventricular hypokinesis. Grade IV/IV diastolic dysfunction (irreversible restrictive filling pattern), severely elevated filling pressures. Right Ventricle The right ventricle is normal in size and function.catheter/pacemaker wire visualized in the right ventricle. Right Atrium The right atrium is normal in size. Left Atrium Moderately increased left atrial size. Mitral Valve Moderately thickened mitral valve. No mitral valve stenosis. Moderate-severe mitral valve regurgitation. Aortic Valve Structurally normal aortic valve without significant sclerosis or stenosis. There is no aortic regurgitation. Tricuspid Valve Mild tricuspid valve regurgitation. Pulmonic Valve Structurally normal pulmonic valve without significant stenosis. There is no pulmonic regurgitation. Pericardium Normal pericardium without effusion. Aorta Normal ascending aorta dimension. IVC Dilated IVC with normal respiratory variation. CONCLUSIONS Severely increased left ventricular cavity size. Severely decreased left ventricular systolic function. Left ventricular ejection fraction is estimated at 10-15 %. Global left ventricular hypokinesis. Grade IV/IV diastolic dysfunction (irreversible restrictive filling pattern), severely elevated filling pressures. Moderately increased left atrial size. Moderately thickened mitral valve. No mitral valve stenosis. Moderate-severe mitral valve regurgitation. There is no pericardial effusion. Right atrial pressure is around 15 mm of mercury. Khalida Toth MD (Electronically Signed) Final Date: 06 March 2025 13:13 Amended: 06 March 2025 13:21 C
[2025-03-06 01:51] LABS: Lactic Acid level (Lactate) 3.2 mmol/L (0.5-2.2)
[2025-03-06 02:18] LABS: Erythrocyte Sedimentation Rate 87 mm/hr (0-10)
[2025-03-06 02:21] LABS: Procalcitonin 4.23 ng/mL (0-0.5); Thyroid Stimulating Hormone 1.16 uIU/mL (0.27-4.20)
[2025-03-06 02:53] LABS: Creatine Phosphokinase 2566 U/L (39-308)
[2025-03-06 03:23] LABS: Gamma Glutamyl Transferase 400 U/L (8-61)
[2025-03-06 03:39] LABS: 25 Hydroxy Vitamin D 19 ng/mL (30-100)
[2025-03-06 04:14] LABS: Calcium 8.3 mg/dL (8.5-10.5); Parathyroid Hormone 294.8 pg/mL (15-65)
[2025-03-06] MEDS: linezolid premix 600 MG/300 ML PREMIX 300 MG IV ×2 (04:29→14:36)
[2025-03-06 04:43] LABS: Creatinine Urine, Random 52 mg/dL (39-259)
[2025-03-06 04:55] LABS: Total Protein, Random Urine 308.2 mg/dL (0.0-20.0)
[2025-03-06 04:58] LABS: Potassium, Radom Urine 54 mmol/L; Urine Random Chloride 14 mmol/L; Urine Random Sodium 19 mmol/L
[2025-03-06 05:29] LABS: MRSA PCR OZH (swab) NOT DETECTED (Negative)
[2025-03-06 05:39] LABS: Hematocrit 35.2 % (37-53); Mean Corpuscular HGB Conc 31.8 g/dL (30-55); Mean Corpuscular Hemoglobin 23.1 pg (27-33); Mean Corpuscular Volume 72.6 fl (82-101); Platelet Count 203 10^3/cmm (157-399); Red Blood Count 4.85 10^6/uL (3.85-5.65); Red Cell Distribution Width 19.7 % (12.1-15.1)
[2025-03-06 05:54] LABS: INR 2.95 (0.8-1.2)
[2025-03-06 05:57] LABS: Ammonia 53 umol/L (16-60)
[2025-03-06 06:02] LABS: Alanine Aminotransferase 563 U/L (0-41); Albumin Level 2.2 g/dL (3.5-5.2); Alkaline Phosphatase 526 U/L (40-130); Blood Urea Nitrogen 46 mg/dL (8-23); Calcium 7.6 mg/dL (8.5-10.5); Carbon Dioxide 18 mmol/L (22-29); Chloride 86 mmol/L (98-107); Creatinine Clr Calc Pharmacy 25.7369; Glomerular Filtration Rate 18.3 mL/min (90-130); Glucose 97 mg/dL (65-115); Magnesium 2.3 mg/dL (1.7-2.3); Osmolality Calculated 268 mOsm/kg (285-295); Phosphorus 3.8 mg/dL (2.5-4.5); Sodium 123 mmol/L (136-145); Total Bilirubin 5.7 mg/dL (0.15-1.2); Total Protein 5.2 g/dL (6.6-8.7)
[2025-03-06 06:04] LABS: Anion Gap 22.5 (5-19); Potassium 3.5 mmol/L (3.5-5.1)
[2025-03-06] MEDS: norepinephrine 4 MG/250 ML BAG 30 MG IV (06:05)
[2025-03-06 06:12] LABS: Hepatitis A Antibody IgM Non-Reactive (Nonreactive); Hepatitis B Core IgM Non-Reactive (Nonreactive); Hepatitis B Surface Antigen Non-Reactive (Nonreactive); Hepatitis C Virus Antibody Non-Reactive (Nonreactive)
[2025-03-06 06:15] LABS: Slide Review Slide Review Perform; White Blood Count 30.12 10^3/uL (3.29-11.43)
[2025-03-06 06:17] LABS: Absolute Segmented Neutrophil 19.9 10/cmm (1.6-7.1); Band Neutrophils Absolute 9.6 10^3/cmm (0.0-1.2); Monocytes Absolute 0.6 10^3/cmm (0.1-0.6); Segmented Neutrophils 66 %; Total Cells Counted 100 (0-100)
[2025-03-06 06:20] LABS: Absolute Neutrophil 29.5 10^3/cmm (1.4-6.5); Anisocytosis 1+; Eosinophils 0 %; Hypochromasia 1+; Lymphocytes 0 %; Microcytosis 1+; Platelet Estimate Normal (Normal); Poikilocytosis 2+
[2025-03-06 06:21] LABS: Aspartate Amino Transferase 2883 U/L (0-40)
[2025-03-06 08:26] LABS: Glucose Point of Care 101 mg/dL (70-110)
[2025-03-06] MEDS: ropinirole 1 mg Tablet 0.5 MG PO (09:11)
[2025-03-06] MEDS: sucralfate 1 gm Tablet PO (09:11)
[2025-03-06] MEDS: apixaban 5 mg Tablet 2.5 MG PO (09:11)
[2025-03-06] MEDS: pantoprazole DR 40 mg Tablet PO (09:12)
[2025-03-06] MEDS: ipratropium-albuterol 3 mL Neb INHALATION ×3 (09:16→20:37)
[2025-03-06] MEDS: budesonide 0.5 mg/2 mL Neb INHALATION ×2 (09:16→20:37)
[2025-03-06 10:44] LABS: Adenovirus Not Detected (NOT DETECT); Chlamydia Pneumoniae Not Detected (NOT DETECT); Coronavirus 229E,HKU1,NL63,OC4 Not Detected (NOT DETECT); Human Metapneumovirus Not Detected (NOT DETECT); Human Rhinovirus/Enterovirus Not Detected (NOT DETECT); Influenza A Not Detected (NOT DETECT); Influenza A H1 Not Detected (NOT DETECT); Influenza A H1-2009 Not Detected (NOT DETECT); Influenza A H3 Not Detected (NOT DETECT); Influenza B Not Detected (NOT DETECT); Mycoplasma Pneumoniae Not Detected (NOT DETECT); Parainfluenza Virus Type 1 Not Detected (NOT DETECT); Parainfluenza Virus Type 2 Not Detected (NOT DETECT); Parainfluenza Virus Type 3 Not Detected (NOT DETECT); Parainfluenza Virus Type 4 Not Detected (NOT DETECT); Respiratory Syncytial Virus A Not Detected (NOT DETECT); Respiratory Syncytial Virus B Not Detected (NOT DETECT); SARS-COV-2 Not Detected (NOT DETECT)
--- NOTE | 2025-03-06 10:59 | P.ANES_ITS ---
Anesthesia Procedures Procedure/Date: 03/06/25 Central Venous Insert: Central Venous Line: right internal jugular Time Out Performed: Yes Consent: requested by attending/covering physician, from patient, risks and benefits reviewed and patient agrees to proceed Central Line: New Anesthesia monitors: pulse oximetry, EKG, BP cuff and oxygen Vein cannulated: right internal jugular Ultrasound used: to identify patency to vessel and to visualize needle entry to vein Post pr ocedure: Other Additional Comments: Once right internal jugular vein was cannulated, drawback flash of nonpulsatile dark red blood Ultrasound proved guidewire was in the right internal jugular vein, it was followed through, the vein was small, once central line lumen was placed over guidewire it would reach a point which it was met with resistance,, thus I feel that the vein was collapsing around lumen, lumen of the central line was removed, ultrasound confirms placement of guidewire in the right internal jugular vein, vessel is small, decision was made to pull out guidewire, guidewire was removed, pressure was applied to the area for at least 5 minutes, then pressure dressing on top, after using ChloraPrep, spoke to attending physician, will have anesthesia come by and attempt central line placement
[2025-03-06] MEDS: insulin glargine 100 units/1 mL 8 UNIT SUBCUT (11:01)
--- NOTE | 2025-03-06 11:58 | PM.PN ---
Subjective Subjective: He is a new admission overnight for severe sepsis, anasarca, JACIEL, transaminitis, hyponatremia. Seen him at bedside this morning. Reports feeling okay, had slow and dysarthric speech at baseline. But able to answer questions appropriately. Denies any complaint of pain at this time. Medications: Reviewed: Yes Vitals/I&O/Wt Last Vital Signs Temp 98.2 F 03/06/25 04:00 Pulse 91 03/06/25 09:17 Resp 20 H 03/06/25 09:17 BP 106/55 03/06/25 05:30 Pulse Ox 92 03/06/25 09:17 O2 Del Method Room Air 03/06/25 09:17 03/05/25 03/06/25 03/06/25 22:59 06:59 14:59 Intake Total 0 / 0 2780 / 2780 32.5 / 32.5 Output Total 50 / 50 Balance 0 / 0 2730 / 2730 32.5 / 32.5 Weight last 48 hrs Weight 115 kg Weight 114 kg Weight 115 kg Weight 136.078 kg Physical Exam Narrative: General: Patient is awake, alert and oriented x 3. Afebrile. Head: Normocephalic. Atraumatic. Icteric sclera. Neck: JVD difficult to assess due to neck circumference. No nuchal rigidity appreciated. Cardiovascular: RRR. No gallops. No murmurs. 3-4+ pitting edema bilateral upper and lower extremities. Lungs: Breath sounds slightly diminished, no use of accessory muscles, no crackles or wheezes. On nasal cannula support. Skin: No jaundice. No rashes. Abdomen: Normal bowel sounds, abdomen soft and nontender. Neurological: Moves all 4 extremities. No myoclonus. Urinary Catheter Management: Arredondo: Cath Placed During This Visit: yes Reason for Continuing Indwelling Catheter: Accurate Measurement of Urinary Output in Critically Ill Patients Urinary Catheter Date of Insertion: 03/06/25 Data 03/06/25 05:22 03/06/25 05:22 Micro: Microbiology 03/06/25 00:23 Blood Culture - Preliminary Blood SPECIMEN COLLECTED 03/06/25 00:19 Blood Culture - Preliminary Blood SPECIMEN COLLECTED A&P Assessment and plan (1) Leukocytosis: Qualifiers: Leukocytosis type: unspecified Qualified Code(s): D72.829 - Elevated white blood cell count, unspecified (2) Acute kidney injury superimposed on CKD: (3) Transaminitis: (4) Congestive heart failure: Qualifiers: Heart failure chronicity: acute on chronic Heart failure type: combined systolic and diastolic Qualified Code(s): I50.43 - Acute on chronic combined systolic (congestive) and diastolic (congestive) heart failure (5) Type 2 diabetes mellitus: Qualifiers: Diabetes mellitus complication status: with other specified complication Diabetes mellitus terminal manager insulin use: without terminal manager use Qualified Code(s): E11.69 - Type 2 diabetes mellitus with other specified complication (6) Metabolic acidemia: (7) CVA (cerebral vascular accident): Qualifiers: CVA mechanism: unspecified Qualified Code(s): I63.9 - Cerebral infarction, unspecified (8) COPD (chronic obstructive pulmonary disease): (9) Anasarca: (10) Hyponatremia: (11) Acute metabolic encephalopathy: (12) Hyperbilirubinemia: Plan Suspected severe sepsis - SIRS: Leukocytosis, tachypnea, tachycardia - End organ damage: JACIEL, Transaminitis, Encephalopathy - Source: Unclear source - Lactic acidosis - Chest x-ray negative for pneumonia - CT abdomen pelvis negative for acute pathology - Urinalysis negative for evidence of infection - CRP is elevated - Check procalcitonin - Endocarditis is within differential, check stat echo - Status post IVF bolus in ED - Blood cultures - MRSA screening - Start Meropenem - Start linezolid - Close hemodynamic monitoring in ICU Anasarca History of heart failure with reduced ejection fraction Non-ischemic cardiomyopathy s/p AICD - Patient is grossly fluid overloaded on peripheral exam - Heart failure exacerbation is within differential; his intravascular volume status is difficult to assess - TTE (08/17/24) w/ LVEF 28%, IV/IV diastolic dysfunction w/ severely elevated filling pressures - Obtain updated echocardiogram as above - Strict I&O - Daily weights - Check urine sodium - Patient just received IVF bolus, will eventually need diuresis, timing TBD by clinical course Acute kidney injury on CKD - Recieved IVF in ED, will assess response - CrCl 44 - CT abd/pelvis reviewed - Strict I&O - Renally dose medications - Check urine electrolytes - Check CK - Proteinuria on urinalysis dip; nephrotic syndrome within ddx - Consider nephrology consult Transaminitis - CT imaging reviewed; check liver US - Suspect sepsis, congestive hepatopathy, hepatitis, DILI - Treat underlying sepsis - Evaluate cardiac function; attempt to optimize fluid status - Check acute hepatitis panel - Hold amiodarone and statin for now - Avoid hepatotoxins - Trend CMP Hyponatremia - Intravascular fluid status difficult to assess in the setting of anasarca - Check TSH - Urine lytes - Trend 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 - Afebrile - Broad spectum abx as above - BCx, echo Type 2 diabetes mellitus - Lantus at reduced home dose - SSI Hx of stroke with residual right hemiparesis Dysphagia - Monitor for aspiration - ABG pending due to lethargy Hx of paroxysmal atrial fibrillation Coagulatathy with elevated INR - Continue DOAC for stroke ppx - Continue metoprolol for rate control - Amiodarone held d/t elevated liver enzymes COPD without exacerbation - Pulmicort - DuoNeb PRN GERD - PPI, reduced dose - Continue carafate RLS - Requip, reduced dose DVT ppx: Apixaban Code: Full 03/06/25 64 year old male with a past medical history significant for 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 Reports despite poor oral intake, his lower extremities have continued to swell severely. #Severe sepsis with shock- - SIRS: Leukocytosis, tachypnea, tachycardia - End organ damage: JACIEL, Transaminitis, Encephalopathy - Source: Unclear source - Lactic acidosis 3.6-->3.2 - Chest x-ray negative for pneumonia - CT abdomen pelvis negative for acute pathology - Urinalysis negative for evidence of infection Leucocytosis worsening 28.2-->30 Procalcitonin 4.2 ESR 87, eleVATED CRP MRSA negative Continue to monitor in ICU Continue IV meropenem and zyvox for now. Follow up blood cultures #CVS- hemodynamically unstable continue Pressors to keep MAP 60-65 Requiring intermittent boluses. BNP 19650. Anasarca History of heart failure with reduced ejection fraction Non-ischemic cardiomyopathy s/p AICD follow up ECHO Cardiology consult for septic shock, fluid overload, and h/o endocarditis. I&O's daily weight. Afib currently rate controlled. INR 1.9, continue eliquis, amiodarone on hold. #Respiratory- stable.Also has h/o COPD which is stable. saturating well on nasal canula. Duoneb prn ABG this morning was fine. #Nephrology- Has JACIEL on CKD Creatinine 3.4, baseline is 2.0 Has fluid overload with septic shock. Nephrology consulted, will follow up for recommendations. Serum sodium 123, urine sodium is 19.likely poor po intake for last few days vs hypervolemic hyponatremia. Calcium 8.3, with albumin 2.2, phosphorus normal, Vit D 19 PTH 294, likely CKD #GI-elevated LFT AST/ALT 2883/563, AP 526 likely secondary to sepsis. Hepatitis panel negative. Will follow up. Check USG abdomen Amiodarone and statin on hold for now. #MSK- CK 2566 likely secondary to fall Cannot do fluids since he is already fluid overloaded. will follow up cardiology and nephrology as above. #Endocrine-H/o type 2 DM will monitor sugars. MULTIMEDIA PROJECT MANAGER lantus and sliding scale for now. #Neurological-Hx of stroke with residual right hemiparesis Aspiration precautions. Speech and swallow eval. Lines-tried attempting Central line but due to septic shock unsuccessful. Will inform Anesthesia if can do femoral line for IV medications, pressors and lab draws. GI PPX with iv pantoprazole 40mg daily. DVT PPX -already on eliquis Code status--He is full code. PDMP PDMP Reviewed: Not Reviewed Attestations Medical Necessity Statement*: Patient presents with generalized weakness, found to have ansarca, suspected sepsis sepsis and multiple other acute pathologies as above with expected hospitalization to cross two midnights for care. Time Spent in Patient Care: 2hours Coding Level of Care Code Critical Care >/= 30 minutes Diagnoses Leukocytosis D72.829 Leukocytosis type: unspecified Acute kidney injury superimposed on CKD N17.9; N18.9 Transaminitis R74.01 Acute on chronic combined systolic and diastolic congestive heart failure I50.43 Heart failure chronicity: acute on chronic Heart failure type: combined systolic and diastolic Type 2 diabetes mellitus E11.69 Diabetes mellitus complication status: with other specified complication Diabetes mellitus terminal manager insulin use: without correction use Metabolic acidemia E87.20 Cerebrovascular accident (CVA), unspecified mechanism I63.9 CVA mechanism: unspecified Chronic obstructive pulmonary disease, unspecified COPD type J44.9 Anasarca R60.1 Hyponatremia E87.1 Acute metabolic encephalopathy G93.41 Hyperbilirubinemia E80.6 Time Spent (min) 120
--- NOTE | 2025-03-06 12:00 | ANES.PROC ---
Anesthesia Procedures Procedure/Date: 03/07/25 Central Venous Insert: Central Venous Line: R Femoral Vein Time Out Performed: Yes Consent: requested by attending/covering physician Central Line: New Anesthesia monitors: pulse oximetry, EKG, BP cuff and oxygen Vein cannulated: other (R femoral) Ultrasound used: to identify patency to vessel and to visualize needle entry to vein Additional Comments: Called for central line placement after prior attempt at R IJ. Was told guidewire had been met with resistance and patient had pacemaker. L IJ looked patent, but given difficulty with wire on prior attempt decision made to try to acess R femoral vein. Copious amounts of Chloraprep used to cleanse area both before and after full body draping given location and body habitus, lidocaine 1% used to make skin wheel, vein accessed using seldinger technique under US guidance. Wire confirmed in R femoral both in plane and out of plane on US. Catheter placed and guidewire removed. All ports aspirated heme and flushed with saline. Sutured in place and sterile dressing applied Of note first attempt at access of femoral vein, guidewire also met with resistance, so access was obained slightly more cephalad with success on second attempt.
--- NOTE | 2025-03-06 12:05 | PC.SLP ---
Pt had sterile procedures completed. Nursing requested to hold off at this time 03/06/25. Pt to be evaluated when safe to do so.
[2025-03-06 12:06] LABS: Glucose Point of Care 87 mg/dL (70-110)
--- NOTE | 2025-03-06 12:30 | PC.NURSE ---
CVL in right femoral placed by Dr Stone. Pt's O2 requirements increase throughout this CVL and the previous CVL attempts.
--- NOTE | 2025-03-06 13:15 | PM.CONSULT ---
Providers/Reason For Consult Consulting Physician/Specialty*: Khalida Toth MD/cardiology Reason for Consult*: Acute decompensated systolic heart failure with severe LV dysfunction Shock Nonischemic cardiomyopathy History of bacterial endocarditis History of ICD Attending Physician: Dariana Galvan MD Primary Care Provider: ANDRES Pettit History of Present Illness History of Present Illness Amrik Alexander is a 64 year old male past medical history significant for morbid obesity severe nonischemic cardiomyopathy with baseline ejection fraction 15 to 20%, history of diabetes mellitus type 2, CVA, who presented with progressive weakness frequent falls worsening of shortness of breath with orthopnea and anasarca like picture. Upon admission white cell count was elevated along with hyponatremia and transaminitis with low blood pressure requiring pressor, patient was given IV Lasix but did not have any adequate response. Patient is arousable but not able to talk because of tachypnea. In 2023 he underwent left heart catheterization which did not show any significant obstructive coronary artery disease. He has history of possible bacterial endocarditis. Today echocardiogram is consistent with severely depressed ejection fraction 15 to 20%, moderate to severe mitral valve regurgitation but no obvious sign of vegetation on aortic tricuspid and mitral valves including pacemaker/ICD wire. Review of Systems Narrative: A complete review of systems was obtained and is negative except as stated in HPI. All/Imm: Denies: acute wheezing Medications/Allergies Home Medications ?Medication ?Instructions ?Recorded ?Confirmed ?Last Taken ?Type allopurinol 300 mg tablet 300 mg PO QAM 08/17/24 02/28/25 02/19/25 History budesonide-formoterol HFA 160 2 puff inhalation BID #10.2 grams 09/22/24 02/28/25 Unknown Rx mcg-4.5 mcg/actuation aerosol inhaler (Symbicort) amiodarone 200 mg tablet (Pacerone) 200 mg PO DAILY #60 tabs 10/09/24 02/28/25 02/19/25 Rx spironolactone 25 mg tablet 25 mg PO DAILY #90 tabs 10/29/24 02/28/25 02/19/25 Rx metoprolol succinate 25 mg 25 mg PO DAILY #30 tabs 11/11/24 02/28/25 02/19/25 Rx tablet,extended release 24 hr ropinirole 1 mg tablet 1 mg PO BID #60 tabs 12/13/24 02/28/25 02/19/25 Rx rosuvastatin 40 mg tablet 40 mg PO BEDTIME 12/22/24 02/28/25 02/19/25 History insulin aspart U-100 100 unit/mL See Rx Instructions SUBCUT TID #15 01/05/25 02/28/25 02/14/25 Rx (3 mL) subcutaneous pen (Novolog mL FlexPen U-100 Insulin aspart) potassium citrate 10 mEq (1,080 20 meq PO BID 02/10/25 02/28/25 02/19/25 History mg) tablet,extended release cefadroxil 500 mg capsule 500 mg PO BID 02/19/25 02/28/25 Unknown History insulin glargine 100 unit/mL (3 20 unit SUBCUT BID 02/19/25 02/28/25 Unknown History mL) subcutaneous pen (Lantus Solostar U-100 Insulin) levocetirizine 5 mg tablet 5 mg PO DAILY 02/19/25 02/28/25 Unknown History bumetanide 1 mg tablet See Rx Instructions .Route 02/21/25 02/28/25 Unknown Rx .COMPLEX #60 tabs sertraline 100 mg tablet 100 mg PO QAM #30 tabs 02/23/25 02/28/25 Unknown Rx blood sugar diagnostic (Blood #200 ea 02/25/25 02/28/25 Unknown Rx Glucose Test strips) pen needle, diabetic 31 gauge x #1,200 ea 02/25/25 02/28/25 Unknown Rx 5/16 pantoprazole 40 mg tablet,delayed 40 mg PO BID 30 days #60 tabs 02/28/25 02/28/25 Unknown Rx release sucralfate 1 gram tablet (Carafate) 1 g PO BID 30 days #60 tabs 02/28/25 02/28/25 Unknown Rx Farxiga 10 mg tablet See Rx Instructions .Route 03/03/25 Unknown Rx (dapagliflozin propanediol) .COMPLEX #90 tabs pantoprazole 40 mg tablet,delayed See Rx Instructions .Route 03/03/25 Unknown Rx release .COMPLEX #60 tabs apixaban 2.5 mg tablet 2.5 mg PO BID 90 days #180 tabs 03/04/25 Unknown Rx Allergies Allergy/AdvReac Type Severity Reaction Status Date / Time isosorbide Allergy unknown Verified 03/01/25 22:48 Penicillins AdvReac rash Verified 03/01/25 22:48 Current Medications Generic Name Dose Route Start Last Admin Trade Name Urbanq PRN Reason Stop Dose Admin Albuterol/Ipratropium 3 ml 03/06/25 02:27 03/06/25 09:16 Ipratropium-Albuterol 3 Ml Neb INHALATION 3 ml Q4H PRN Administration Shortness Of Breath Apixaban 2.5 mg 03/06/25 09:00 03/06/25 09:11 Apixaban 5 Mg Tablet PO 2.5 mg BID JOSHUA Administration Budesonide 0.5 mg 03/06/25 08:00 03/06/25 09:16 Budesonide 0.5 Mg/2 Ml Neb INHALATION 0.5 mg BID.RESPIRATORY JOSHUA Administration Linezolid 600 mg in 300 mls @ 300 mls/hr 03/06/25 02:27 03/06/25 05:54 Zyvox Premix IV Infused Q12H JOSHUA Infusion Protocol Norepinephrine Bitartrate 4 mg in 250 mls @ 0 mls/hr 03/06/25 06:00 03/06/25 07:10 Levophed IV 6 mcg/min .Q0M JOSHUA 22.5 mls/hr Titration Protocol Per Protocol Insulin Glargine 8 unit 03/06/25 09:30 03/06/25 11:01 Insulin Glargine 100 Units/1 Ml SUBCUT 8 unit BID JOSHUA Administration Insulin Human Lispro 0 unit 03/06/25 08:00 03/06/25 09:05 Insulin Lispro 100 Unit/1 Ml SUBCUT Not Given WM&BEDTIME JOSHUA Protocol Metoprolol Succinate 25 mg 03/06/25 09:00 03/06/25 09:12 Metoprolol Succinate Er (24 Hr) 25 Mg Tablet PO Not Given DAILY JOSHUA Pantoprazole Sodium 40 mg 03/06/25 09:00 03/06/25 09:[address] 40 Mg Tablet PO 40 mg DAILY JOSHUA Administration Ropinirole HCl 0.5 mg 03/06/25 09:00 03/06/25 09:11 Ropinirole 1 Mg Tablet PO 0.5 mg BID JOSHUA Administration Sucralfate 1 gm 03/06/25 09:00 03/06/25 09:11 Sucralfate 1 Gm Tablet PO 1 gm BID JOSHUA Administration PFSH Acute PFSH: Medical History (Updated 03/06/25 @ 13:40 by Khalida Toth MD) Cardiomyopathy Endocarditis pacemaker lead infection. 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 [place], 07/11/2020 Mixed hyperlipidemia Hypertension CVA (cerebral vascular accident) PVCs (premature ventricular contractions) Hypomagnesemia Infarction of spleen Nausea & vomiting Gastroparesis Major depressive disorder, recurrent episode, mild degree Major depressive disorder in partial remission Allergic rhinitis Bipolar II disorder Diabetes Non-ST elevation CO (NSTEMI) Uses bilevel positive airway pressure (BPAP) ventilation at home 12/8cm Dysarthria Unstable angina Nonischemic congestive cardiomyopathy Chronic low back pain Elevated blood uric acid level History of sleep study 2017 at [facility]: Optimal pressure settings with BiPAP found to be 12/8 cm COVID-19 Wound infection following procedure infection with defibrillator lead revision, removed , scarring left subclavian area from this GERD (gastroesophageal reflux disease) ALBERTO (obstructive sleep apnea) C. difficile diarrhea Cataracts, bilateral CHF (congestive heart failure) Urolithiasis Multi stone former, calcium oxalate mono and dihydrate. Also calcium phosphate. Multiple interventions including endoscopy with laser lithotripsy and ESWL. Metabolic treatment with potassium citrate Hemorrhoids Psychiatric care Right ureteral calculus Osteoarthritis of hands, bilateral Pacemaker Surgical History S/P epidural steroid injection Status post hemorrhoidectomy Hx of umbilical hernia repair Hx of lithotripsy History of urethral stent H/O esophagogastroduodenoscopy (02/27/21) gastritis, duodenitis History of colonoscopy (02/27/21) descending colon polyp, hemorrhoids History of carpal tunnel release of both wrists History of permanent cardiac pacemaker placement Hx of cataract surgery Hx of shoulder surgery Family History Grandfather CAD (coronary artery disease) Brother Cancer colon cancer Diabetes Mother Diabetes Father No problems noted. Other Hypertension Rheumatoid arthritis Social History Smoking and tobacco/nicotine status: never used tobacco/nicotine Second hand smoke exposure: No Alcohol intake: former Year of sobriety/quit date alcohol: 1997 Substance/Drug Use: former Date of last use: 1997 Caregiver/support person: Yes Lives independently: Yes Household members: spouse Marital status: service: No Current occupational status: disabled Current gender identity: Male Special fernando needs: No Agree to transfusion: Yes Dietary Habits: Current diet type/program: regular and diabetic Caffeine: Yes Caffeine intake frequency: tea Exercise: What type of physical activity do you participate in?: none Physical activity functional status: independent ambulation Safety: Seatbelt use: sometimes Drive intoxicated or ride with intoxicated lifter driver?: never Home Safety: Water heater temperature set < 120 degrees: Yes Working smoke detector in home: Yes Fire extinguisher in home: Yes Carbon monoxide detector in home: No Personal Safety: Do you feel safe at home: Yes Victim of physical abuse: No Victim of emotional abuse: No Victim of sexual abuse: No NHANES Social Connection/Isolation: In a typical week, how many times do you talk on the telephone with family, friends, or neighbors?: Three or More Times per Week How often do you get together with friends or relatives?: Twice per Week Social isolation score (0-1 are the most socially isolated patients): 1 Vitals/I&O/Wt Last Vital Signs Temp 98.2 F 03/06/25 04:00 Pulse 91 03/06/25 09:17 Resp 20 H 03/06/25 09:17 BP 106/55 03/06/25 05:30 Pulse Ox 92 03/06/25 09:17 O2 Del Method Room Air 03/06/25 09:17 03/05/25 03/06/25 03/06/25 22:59 06:59 14:59 Intake Total 0 / 0 2780 / 2780 32.5 / 32.5 Output Total 50 / 50 Balance 0 / 0 2730 / 2730 32.5 / 32.5 Weight last 48 hrs Weight 253 lb 8.505 oz Weight 251 lb 5.231 oz Weight 253 lb 8.505 oz Weight 300 lb Physical Exam Const: OTHER: GENERAL: Patient is awake and tachypneic he is arousable but lethargic HEART: Regular S1 and S2.2/6 systolic murmur LUNGS: Decreased breath sounds bilaterally. Abdomen: Mildly distended with abdominal wall edema CENTRAL NERVOUS SYSTEM: Grossly nonfocal. EXTREMITIES: Lower extremities with 2+ edema bilaterally. Urinary Catheter Management: Arredondo: Cath Placed During This Visit: yes Reason for Continuing Indwelling Catheter: Accurate Measurement of Urinary Output in Critically Ill Patients Urinary Catheter Date of Insertion: 03/06/25 Data 03/06/25 05:22 03/06/25 05:22 Micro: Microbiology 03/06/25 00:23 Blood Culture - Preliminary Blood SPECIMEN COLLECTED 03/06/25 00:19 Blood Culture - Preliminary Blood SPECIMEN COLLECTED A&P Assessment and plan (1) Sepsis: (2) Congestive heart failure: Qualifiers: Heart failure chronicity: acute on chronic Heart failure type: combined systolic and diastolic Qualified Code(s): I50.43 - Acute on chronic combined systolic (congestive) and diastolic (congestive) heart failure (3) Acute kidney injury superimposed on CKD: (4) Acute metabolic encephalopathy: (5) Cardiomyopathy: Plan Patient has mixed picture of sepsis and acute decompensated systolic heart failure from nonischemic dilated cardiomyopathy with shock. Agree with pressors and plan to start IV furosemide or Bumex drip, if does not improve will plan to add dobutamine 2.5 mcg to increase the cardiac output There is no obvious vegetation or source of infection noted on transthoracic echo however sensitivity and specificity is of low, if indicated may require blood cultures if positive will consider transesophageal echocardiogram at some point Transaminitis can be explained on the basis of congestive liver due to heart failure Antibiotics as per medicine colleagues if indicated Will continue to monitor PDMP PDMP Reviewed: Not Reviewed Consult Attestations Medical Necessity Statement: Patient require continuation of hospitalization for above defined care. Coding Level of Care Code Acute Code for [facility] Diagnoses Sepsis A41.9 Acute on chronic combined systolic and diastolic congestive heart failure I50.43 Heart failure chronicity: acute on chronic Heart failure type: combined systolic and diastolic Acute kidney injury superimposed on CKD N17.9; N18.9 Acute metabolic encephalopathy G93.41 Cardiomyopathy I42.9
[2025-03-06] MEDS: meropenem 1,000 mg SDV 1000 MG IVP (14:27)
[2025-03-06] MEDS: albumin 25 G/100 ML BAG 60 G IV ×2 (14:32→19:50)
--- NOTE | 2025-03-06 14:40 | PC.NURSE ---
O2 sats continue to be low. Rt at bedside. Dr Galvan notified. ABG completed. Orders to start BiPaP. BiPap started, FIO2 at 100%.
[2025-03-06 14:59] LABS: Glucose Point of Care 80 mg/dL (70-110)
--- NOTE | 2025-03-06 15:15 | PC.NURSE ---
Dr Galvan notified that albumin and yvox admin are late. She okay'd. Also spoke to her about continuing hypotension and Lasix gtt not started yet due to hypotension. Orders to start Lasix when Bp improve and Dobutamine gtt ordered.
[2025-03-06] MEDS: norepinephrine 4 MG/250 ML BAG 45 MG IV (15:42)
[2025-03-06] MEDS: DOBUTamine drip 500 MG/250 ML PREMIX 8.63 MG IV (15:46)
[2025-03-06 16:22] LABS: ABG PH Result 7.25 (7.35-7.45); Alveolar-Arterial Oxygen Gradi 76.6 mmHg (5-10); Arterial Blood Gas Hematocrit 37.5 % (42-52); Blood Gas Allen Test Pos; Blood Gas Operator Identificat AMH; Blood Gas Sample Site Radial, right; Blood Gas Sample Type Arterial; Carboxyhemoglobin 1.1 %THgb (0.4-20.1); Methemoglobin 0.9 % (0.4-1.5); Oxygen Device BIPAP; Oxygen Saturation ABG 90.8; PO2 ABG 71.5 mmHg (80.0-100.0); PO2 FiO2 Ratio Arterial Blood 71; Potassium Level - ABG 3.7 mmol/L (3.5-5.0); Total Hemoglobin 12.2 g/dL (14-18)
[2025-03-06 16:28] LABS: Basophils # 0.1 10^3/uL (0.0-0.1); Basophils % 0.4 %; Eosinophils # 6.6 10^3/uL (0.0-0.8); Eosinophils % 19.4 %; Hematocrit 35.1 % (37-53); Lymphocytes # 0.3 10^3/uL (0.8-4.8); Lymphocytes % 0.9 %; Mean Corpuscular HGB Conc 31.6 g/dL (30-55); Mean Corpuscular Hemoglobin 22.8 pg (27-33); Mean Corpuscular Volume 72.1 fl (82-101); Monocytes # 1.2 10^3/uL (0.2-0.9); Monocytes % 3.4 %; Neutrophils # 23.93 10^3/uL (1.8-7.7); Neutrophils % 69.9 %; Nucleated Red Blood Cells # 0.2 /100WBC; Nucleated Red Blood Cells % 0.5 %; Platelet Count 210 10^3/cmm (157-399); Red Blood Count 4.87 10^6/uL (3.85-5.65); Red Cell Distribution Width 20.1 % (12.1-15.1)
[2025-03-06 16:45] LABS: Lactate (Lactic Acid level) 3.9 mmol/L (0.5-2.2)
[2025-03-06 16:54] LABS: Alanine Aminotransferase 630 U/L (0-41); Albumin Level 2.6 g/dL (3.5-5.2); Alkaline Phosphatase 655 U/L (40-130); Anion Gap 23.2 (5-19); Blood Urea Nitrogen 51 mg/dL (8-23); Calcium 7.5 mg/dL (8.5-10.5); Carbon Dioxide 18 mmol/L (22-29); Chloride 85 mmol/L (98-107); Creatinine Clr Calc Pharmacy 22.4373; Globulin 2.8 g/dL (1.3-4.6); Glomerular Filtration Rate 15.6 mL/min (90-130); Glucose 86 mg/dL (65-115); NT Pro B Type Natriuretic Pept 28790 pg/mL (0-125); Osmolality Calculated 267 mOsm/kg (285-295); Potassium 4.2 mmol/L (3.5-5.1); Sodium 122 mmol/L (136-145); Total Bilirubin 5.8 mg/dL (0.15-1.2); Total Protein 5.4 g/dL (6.6-8.7)
--- NOTE | 2025-03-06 16:57 | PM.CONSULT ---
Providers/Reason For Consult Consulting Physician/Specialty*: kommana/Nephrology Reason for Consult*: JACIEL on CKD Attending Physician: Dariana Galvan MD Primary Care Provider: ANDRES Pettit History of Present Illness History of Present Illness Amrik Alexander is a 64 year old male Patient is a 64-year-old male with past medical history significant for cardiomyopathy with reduced EF 10-15%, h/o pacemaker , DM , HTN , COPD ,ALBERTO presented to the emergency department due to generalized weakness status post fall and lethargy. In the emergency department he was noted to be tachypneic and was hypoxic and has borderline low blood pressures. Lab data significant for elevated WBC count, hyponatremia with a sodium of 122 metabolic acidosis and has JACIEL also has elevated LFTs. Patient had a history of prior endocarditis about a year ago. He was started on broad-spectrum antibiotics and admitted to ICU. Currently he is on Levophed blood pressures borderline low. Remains anuric. He was placed on BiPAP with 100% FiO2. Review of Systems Narrative: negative Medications/Allergies Home Medications ?Medication ?Instructions ?Recorded ?Confirmed ?Last Taken ?Type allopurinol 300 mg tablet 300 mg PO QAM 08/17/24 03/06/25 02/19/25 History amiodarone 200 mg tablet (Pacerone) 200 mg PO DAILY #60 tabs 10/09/24 03/06/25 02/19/25 Rx spironolactone 25 mg tablet 25 mg PO DAILY #90 tabs 10/29/24 03/06/25 02/19/25 Rx ropinirole 1 mg tablet 1 mg PO BID #60 tabs 12/13/24 03/06/25 02/19/25 Rx rosuvastatin 40 mg tablet 40 mg PO BEDTIME 12/22/24 03/06/25 02/19/25 History insulin aspart U-100 100 unit/mL See Rx Instructions SUBCUT TID #15 01/05/25 03/06/25 02/14/25 Rx (3 mL) subcutaneous pen (Novolog mL FlexPen U-100 Insulin aspart) potassium citrate 10 mEq (1,080 20 meq PO BID 02/10/25 03/06/25 02/19/25 History mg) tablet,extended release cefadroxil 500 mg capsule 500 mg PO BID 02/19/25 03/06/25 Unknown History insulin glargine 100 unit/mL (3 20 unit SUBCUT BID 02/19/25 03/06/25 Unknown History mL) subcutaneous pen (Lantus Solostar U-100 Insulin) levocetirizine 5 mg tablet 5 mg PO DAILY 02/19/25 03/06/25 Unknown History bumetanide 1 mg tablet See Rx Instructions .Route 02/21/25 03/06/25 Unknown Rx .COMPLEX #60 tabs sertraline 100 mg tablet 100 mg PO QAM #30 tabs 02/23/25 03/06/25 Unknown Rx blood sugar diagnostic (Blood #200 ea 02/25/25 03/06/25 Unknown Rx Glucose Test strips) pen needle, diabetic 31 gauge x #1,200 ea 02/25/25 03/06/25 Unknown Rx 516 sucralfate 1 gram tablet (Carafate) 1 g PO BID 30 days #60 tabs 02/28/25 03/06/25 Unknown Rx Farxiga 10 mg tablet See Rx Instructions .Route 03/03/25 03/06/25 Unknown Rx (dapagliflozin propanediol) .COMPLEX #90 tabs pantoprazole 40 mg tablet,delayed See Rx Instructions .Route 03/03/25 03/06/25 Unknown Rx release .COMPLEX #60 tabs apixaban 2.5 mg tablet 2.5 mg PO BID 90 days #180 tabs 03/04/25 03/06/25 Unknown Rx Allergies Allergy/AdvReac Type Severity Reaction Status Date / Time isosorbide Allergy unknown Verified 03/01/25 22:48 Penicillins AdvReac rash Verified 03/01/25 22:48 Current Medications Generic Name Dose Route Start Last Admin Trade Name Freq PRN Reason Stop Dose Admin Albuterol/Ipratropium 3 ml 03/06/25 02:27 03/06/25 14:25 Ipratropium-Albuterol 3 Ml Neb INHALATION 3 ml Q4H PRN Administration Shortness Of Breath Apixaban 2.5 mg 03/06/25 09:00 03/06/25 09:11 Apixaban 5 Mg Tablet PO 2.5 mg BID JOSHUA Administration Budesonide 0.5 mg 03/06/25 08:00 03/06/25 09:16 Budesonide 0.5 Mg/2 Ml Neb INHALATION 0.5 mg BID.RESPIRATORY JOSHUA Administration Linezolid 600 mg in 300 mls @ 300 mls/hr 03/06/25 02:27 03/06/25 15:47 Zyvox Premix IV Infused Q12H JOSHUA Infusion Protocol Norepinephrine Bitartrate 4 mg in 250 mls @ 0 mls/hr 03/06/25 06:00 03/06/25 16:49 Levophed IV 15 mcg/min .Q0M JOSHUA 56.25 mls/hr Titration Protocol Per Protocol Albumin Human 25 g in 100 mls @ 60 mls/hr 03/06/25 12:30 03/06/25 15:47 Albumin IV Infused Q8H JOSHUA Infusion Dobutamine HCl/Dextrose 500 mg in 250 mls @ 0 mls/hr 03/06/25 15:15 03/06/25 16:49 Dobutamine Drip IV 10 mcg/kg/min .Q0M JOSHUA 34.5 mls/hr Titration Protocol Per Protocol Insulin Glargine 8 unit 03/06/25 09:30 03/06/25 11:01 Insulin Glargine 100 Units/1 Ml SUBCUT 8 unit BID JOSHUA Administration Insulin Human Lispro 0 unit 03/06/25 08:00 03/06/25 14:01 Insulin Lispro 100 Unit/1 Ml SUBCUT Not Given WM&BEDTIME JOSHUA Protocol Meropenem 1,000 mg 03/06/25 12:30 03/06/25 14:27 Meropenem 1,000 Mg Sdv IVP 1,000 mg Q12H JOSHUA Administration Protocol Metoprolol Succinate 25 mg 03/06/25 09:00 03/06/25 09:12 Metoprolol Succinate Er (24 Hr) 25 Mg Tablet PO Not Given DAILY JOSHUA Pantoprazole Sodium 40 mg 03/06/25 09:00 03/06/25 09:[address] 40 Mg Tablet PO 40 mg DAILY JOSHUA Administration Ropinirole HCl 0.5 mg 03/06/25 09:00 03/06/25 09:11 Ropinirole 1 Mg Tablet PO 0.5 mg BID OJSHUA Administration Sucralfate 1 gm 03/06/25 09:00 03/06/25 09:11 Sucralfate 1 Gm Tablet PO 1 gm BID JOSHUA Administration PFSH Acute PFSH: Medical History (Updated 03/06/25 @ 13:40 by Khalida Toth MD) Cardiomyopathy Endocarditis pacemaker lead infection. Treated in COPD (chronic obstructive pulmonary disease) Cardiomyopathy Coronary artery disease Type 2 diabetes mellitus Cardiac resynchronization therapy defibrillator ([employer]) in place [facility] [address] [place], 07/11/2020 Mixed hyperlipidemia Hypertension CVA (cerebral vascular accident) PVCs (premature ventricular contractions) Hypomagnesemia Infarction of spleen Nausea & vomiting Gastroparesis Major depressive disorder, recurrent episode, mild degree Major depressive disorder in partial remission Allergic rhinitis Bipolar II disorder Diabetes Non-ST elevation NV (NSTEMI) Uses bilevel positive airway pressure (BPAP) ventilation at home 12/8cm Dysarthria Unstable angina Nonischemic congestive cardiomyopathy Chronic low back pain Elevated blood uric acid level History of sleep study 2017 at [facility]: Optimal pressure settings with BiPAP found to be 12/8 cm COVID-19 Wound infection following procedure infection with defibrillator lead revision, removed , scarring left subclavian area from this GERD (gastroesophageal reflux disease) ALBERTO (obstructive sleep apnea) C. difficile diarrhea Cataracts, bilateral CHF (congestive heart failure) Urolithiasis Multi stone former, calcium oxalate mono and dihydrate. Also calcium phosphate. Multiple interventions including endoscopy with laser lithotripsy and ESWL. Metabolic treatment with potassium citrate Hemorrhoids Psychiatric care Right ureteral calculus Osteoarthritis of hands, bilateral Pacemaker Surgical History S/P epidural steroid injection Status post hemorrhoidectomy Hx of umbilical hernia repair Hx of lithotripsy History of urethral stent H/O esophagogastroduodenoscopy (02/27/21) gastritis, duodenitis History of colonoscopy (02/27/21) descending colon polyp, hemorrhoids History of carpal tunnel release of both wrists History of permanent cardiac pacemaker placement Hx of cataract surgery Hx of shoulder surgery Family History Grandfather CAD (coronary artery disease) Brother Cancer colon cancer Diabetes Mother Diabetes Father No problems noted. Other Hypertension Rheumatoid arthritis Social History Smoking and tobacco/nicotine status: never used tobacco/nicotine Second hand smoke exposure: No Alcohol intake: former Year of sobriety/quit date alcohol: 1997 Substance/Drug Use: former Date of last use: 1997 Caregiver/support person: Yes Lives independently: Yes Household members: spouse Marital status: service: No Current occupational status: disabled Current gender identity: Male Special fernando needs: No Agree to transfusion: Yes Vitals/I&O/Wt Last Vital Signs Temp 98.5 F 03/06/25 13:00 Pulse 104 H 03/06/25 16:45 Resp 28 H 03/06/25 16:45 BP 70/38 03/06/25 16:45 Pulse Ox 88 L 03/06/25 16:45 O2 Del Method BiPAP 03/06/25 16:45 O2 Flow Rate 100 03/06/25 16:45 FiO2 100 03/06/25 16:30 03/06/25 03/06/25 03/06/25 06:59 14:59 22:59 Intake Total 2780 / 2780 541.063 / 541.063 530.309 / 1071.372 Output Total 50 / 50 Balance 2730 / 2730 541.063 / 541.063 530.309 / 1071.372 Weight last 48 hrs Weight 115 kg Weight 114 kg Weight 115 kg Weight 136.078 kg Physical Exam Narrative: Patient currently on BiPAP with 100% FiO2 Decreased breath sounds bilaterally per report S1-S2 regular rate and rhythm per report Abdomen soft nontender Has edema Urinary Catheter Management: Arredondo: Cath Placed During This Visit: yes Reason for Continuing Indwelling Catheter: Accurate Measurement of Urinary Output in Critically Ill Patients Urinary Catheter Date of Insertion: 03/06/25 Data 03/06/25 05:22 03/06/25 16:13 Micro: Microbiology 03/06/25 00:23 Blood Culture - Preliminary Blood SPECIMEN COLLECTED 03/06/25 00:19 Blood Culture - Preliminary Blood SPECIMEN COLLECTED A&P Assessment and plan (1) Anasarca: (2) Acute kidney injury superimposed on CKD: 1. Acute on chronic kidney disease stage III: Baseline creatinine seems to be in the mid 1 range patient now has JACIEL with a creatinine in the 3 range, remains anuric. Etiology likely cardiorenal with concern for possible sepsis as well given leukocytosis. - Currently on Levophed. Discussed with Dr. Duval and hospitalist Dr. Buckley tomorrow-will add vasopressin - If blood pressures improve, we will try diuresing with IV Lasix and if no response will consider CRRT after discussion with family. 2. Known history of cardiomyopathy with ejection fraction 10 to 15% and diastolic dysfunction, 3. Metabolic acidosis: Mild, monitor 4. Hyponatremia: Likely hypervolemic, placed on fluid restriction 1000 mL/day, and diuresis once blood pressure improved 5. History of CVA 6. History of chronic respiratory failure in the setting of COPD CHF and sleep apnea 7. Leukocytosis, on broad-spectrum antibiotics, source not known Overall poor prognosis. Patient evaluated using audiovisual cart. Time spent 40 minutes. PDMP PDMP Reviewed: Not Reviewed Consult Attestations Medical Necessity Statement: Per medicine team Coding Level of Care Code Acute Code for Chg Fwd Diagnoses Anasarca R60.1 Acute kidney injury superimposed on CKD N17.9; N18.9
[2025-03-06 17:15] LABS: Aspartate Amino Transferase 3497 U/L (0-40)
[2025-03-06 17:16] LABS: Creatine Phosphokinase 5682 U/L (39-308)
[2025-03-06 17:24] LABS: White Blood Count 34.17 10^3/uL (3.29-11.43)
[2025-03-06 17:25] LABS: Slide Review Slide Review Perform
--- NOTE | 2025-03-06 17:28 | PM.CCNAC ---
Critical Care Event Note The high probability of a clinically significant, sudden or life threatening deterioration of the patient's [] system(s) required my full and direct attention, intervention and personal management. The critical care time is as shown. This time is in addition to time spent performing any reported procedures but includes the following: [x] Data and vital sign review and interpretation [x] Patient assessment, examination and intervention [x] Documentation [x] Medication orders and management Patient has been monitored and evaluated in ICU. He has been hypertensive since this morning with blood pressure in 80s over 20s. Started on pressors Levophed this morning and was subsequently started on dobutamine but systolic blood pressure still in high 70s. He is mildly tachycardic. Femoral central line placed. He was also found to be hypoxic in low 80s and was started on BiPAP with 100% FiO2. ABGs noted and consistent with acute metabolic acidosis. Has been evaluated with cardiology and nephrology consult. He also received IV albumin but still stayed hypotensive. Family, and daughter who initially brought patient to ER has been at bedside. Spoke to family about his critical illness, pressure support and respiratory support with BiPAP. Counseled and educated about need for intubation and mechanical ventilator in view of septic shock and respiratory failure. Also counseled and educated about the need for dialysis/CRRT if not able to receive IV Lasix as needed or Lasix drip for fluid overload given persistent hypotension. O/E patient seems alert, awake and oriented, in mild respiratory distress, able to answer questions appropriately although dysarthric. Chest b/l coarse rhonchi present CVS- normal heart sounds Abdomen, soft, distended, NT normal bowel sounds Ext- 4+ pitting edema b/l upper and lower extremities. Prognosis poor Labs evaluated and has been worsening with WBC trending up to 34 Will continue to monitor in ICU. Follow-up nephrology and cardiology for further recommendations. Family updated and agreeable with plan of care. Critical Care Time Code activated: No Critical Care Time (min): 180 Coding Level of Care Code Acute Code for Chg Fwd Time Spent (min) 180
[2025-03-06 17:37] LABS: Glucose Point of Care 106 mg/dL (70-110)
[2025-03-06] MEDS: vasopressin 40 UNIT/100 ML PREMIX IV (17:45)
--- NOTE | 2025-03-06 18:26 | PC.NURSE ---
Blood sugar 106, pt not eating. Glargine Insulin held. Dr Galvan notified, will change order
--- NOTE | 2025-03-06 18:33 | PM.PN ---
Subjective Subjective: Patient remained hypotensive and in shock despite of uptitration of Levophed and starting him on dobutamine blood pressure making it difficult to remove fluid for decompensated systolic heart failure Medications: Reviewed: Yes Vitals/I&O/Wt Last Vital Signs Temp 98.5 F 03/06/25 13:00 Pulse 108 H 03/06/25 17:45 Resp 30 H 03/06/25 17:45 BP 67/38 03/06/25 17:45 Pulse Ox 89 L 03/06/25 17:45 O2 Del Method BiPAP 03/06/25 17:45 O2 Flow Rate 100 03/06/25 16:45 FiO2 100 03/06/25 17:45 03/06/25 03/06/25 03/06/25 06:59 14:59 22:59 Intake Total 2780 / 2780 541.063 / 541.063 610.048 / 1151.111 Output Total 50 / 50 15 / 15 Balance 2730 / 2730 541.063 / 541.063 595.048 / 1136.111 Weight last 48 hrs Weight 253 lb 8.505 oz Weight 251 lb 5.231 oz Weight 253 lb 8.505 oz Weight 300 lb Physical Exam Const: OTHER: GENERAL: Patient is arousable but disoriented HEART: Regular S1 and S2.2/6 systolic murmur LUNGS: Decreased breath sounds bilaterally. Abdomen: Mildly distended with abdominal wall edema CENTRAL NERVOUS SYSTEM: Grossly nonfocal. EXTREMITIES: Lower extremities with 2+ edema bilaterally. Urinary Catheter Management: Arredondo: Cath Placed During This Visit: yes Reason for Continuing Indwelling Catheter: Accurate Measurement of Urinary Output in Critically Ill Patients Urinary Catheter Date of Insertion: 03/06/25 Data 03/06/25 16:13 03/06/25 16:13 Micro: Microbiology 03/06/25 00:23 Blood Culture - Preliminary Blood SPECIMEN COLLECTED 03/06/25 00:19 Blood Culture - Preliminary Blood SPECIMEN COLLECTED A&P Assessment and plan (1) Sepsis: (2) Congestive heart failure: Qualifiers: Heart failure chronicity: acute on chronic Heart failure type: combined systolic and diastolic Qualified Code(s): I50.43 - Acute on chronic combined systolic (congestive) and diastolic (congestive) heart failure (3) Acute kidney injury superimposed on CKD: (4) Acute metabolic encephalopathy: (5) Cardiomyopathy: Plan Patient appeared to be in mixed picture of cardiogenic and possible septic shock. He has not responded well to Levophed and dobutamine will add vasopressin. I have detailed discussion with the patient family including and daughter at bedside. Our nephrology colleague has also called and discussed the case among us in detail. We both agree that patient may not be candidate for mechanical device such as Impella since he is not a transplant candidate or destination bad, given severely depressed ejection fraction possible sepsis patient is an advanced stage of shock. Will add vasopressin continue antibiotics. Overall short-term long-term prognosis is guarded and poor. PDMP PDMP Reviewed: Not Reviewed Attestations Medical Necessity Statement*: Patient require continuation hospitalization for above defined care. Coding Level of Care Code Acute Code for [facility] Diagnoses Sepsis A41.9 Acute on chronic combined systolic and diastolic congestive heart failure I50.43 Heart failure chronicity: acute on chronic Heart failure type: combined systolic and diastolic Acute kidney injury superimposed on CKD N17.9; N18.9 Acute metabolic encephalopathy G93.41 Cardiomyopathy I42.9
--- NOTE | 2025-03-06 18:54 | PC.NURSE ---
Pt remains resting in bed with BiPAp on. No pain reported. Vasopressin at0.04u/min, Dobutamine at 20 mcg/kg/min and Levophed at 20mcg/min. Finally at end of shift: BP 94/56 MAP of 68. Pt remains a febrile. Bruising noted on right neck after CVL attempts. and daughters are at bedside Pt remains edematous. Anuria noted. ONly 15ml of output this shift.
[2025-03-06] MEDS: norepinephrine 4 MG/250 ML BAG 75 MG IV ×2 (19:19→22:38)
[2025-03-06] MEDS: DOBUTamine drip 500 MG/250 ML PREMIX 69 MG IV ×2 (19:57→23:15)
[2025-03-06 20:59] LABS: Glucose Point of Care 99 mg/dL (70-110)
[2025-03-07] VITALS (75 sets, daily range): BP systolic 46–107; BP diastolic 32–64; PULSE 0–108; RESP 0–39; TEMP 36.1–37.7; O2SAT 76–100
[2025-03-07] MEDS: meropenem 1,000 mg SDV 1000 MG IVP ×2 (00:45→12:48)
[2025-03-07] MEDS: norepinephrine 4 MG/250 ML BAG 112.5 MG IV ×2 (01:58→03:56)
--- NOTE | 2025-03-07 01:59 | PC.NURSE ---
Orders Contacted Dr Skinner regarding patient maxed on all pressors and decreasing MAPs. Telephone order to increase levophed to 30 mcg/min and to give next dose of albumin early.
[2025-03-07] MEDS: linezolid premix 600 MG/300 ML PREMIX 300 MG IV ×2 (02:00→14:28)
[2025-03-07] MEDS: albumin 25 G/100 ML BAG 60 G IV ×2 (02:01→12:45)
[2025-03-07] MEDS: DOBUTamine drip 500 MG/250 ML PREMIX 69 MG IV ×2 (02:22→05:34)
--- NOTE | 2025-03-07 03:10 | PC.NURSE ---
Physician contact Contacted Dr Skinner regarding patient's continuing low MAPs despite multiple pressors. Received verbal order for a new MAP goal of 60 and to start an epinephrine drip if MAPs persist below 60.
[2025-03-07] MEDS: EPINEPHrine 2.5 MG in sodium chloride 0.9% 250 ML 6.06 MG IV (03:19)
--- NOTE | 2025-03-07 04:10 | PC.NURSE ---
Physician communication Dr Skinner to unit. Gave verbal order to titrate levophed up to 40 mcg/min.
[2025-03-07 04:25] LABS: Glucose Point of Care 136 mg/dL (70-110)
[2025-03-07 04:38] LABS: Basophils # 0.1 10^3/uL (0.0-0.1); Basophils % 0.5 %; Eosinophils % 0.1 %; Hematocrit 30.1 % (37-53); Lymphocytes # 0.6 10^3/uL (0.8-4.8); Mean Corpuscular HGB Conc 30.9 g/dL (30-55); Mean Corpuscular Hemoglobin 22.7 pg (27-33); Mean Corpuscular Volume 73.6 fl (82-101); Monocytes # 0.8 10^3/uL (0.2-0.9); Monocytes % 2.7 %; Neutrophils # 27.41 10^3/uL (1.8-7.7); Neutrophils % 91.8 %; Nucleated Red Blood Cells # 0.2 /100WBC; Nucleated Red Blood Cells % 0.5 %; Platelet Count 152 10^3/cmm (157-399); Red Blood Count 4.09 10^6/uL (3.85-5.65); Red Cell Distribution Width 19.9 % (12.1-15.1); White Blood Count 29.87 10^3/uL (3.29-11.43)
[2025-03-07 05:13] LABS: Alanine Aminotransferase 541 U/L (0-41); Albumin Level 2.6 g/dL (3.5-5.2); Alkaline Phosphatase 700 U/L (40-130); Anion Gap 22.5 (5-19); Blood Urea Nitrogen 55 mg/dL (8-23); Carbon Dioxide 17 mmol/L (22-29); Chloride 85 mmol/L (98-107); Creatinine Clr Calc Pharmacy 20.8347; Globulin 2.4 g/dL (1.3-4.6); Glomerular Filtration Rate 14.4 mL/min (90-130); Glucose 194 mg/dL (65-115); Osmolality Calculated 270 mOsm/kg (285-295); Potassium 4.5 mmol/L (3.5-5.1); Sodium 120 mmol/L (136-145); Total Bilirubin 5.5 mg/dL (0.15-1.2)
[2025-03-07 05:23] LABS: Slide Review Slide Review Perform
[2025-03-07] MEDS: norepinephrine 4 MG/250 ML BAG 150 MG IV ×7 (05:24→14:27)
[2025-03-07] MEDS: vasopressin 40 UNIT/100 ML PREMIX 6 UNIT IV (05:26)
[2025-03-07 05:39] LABS: Aspartate Amino Transferase 3357 U/L (0-40)
[2025-03-07 05:40] LABS: Creatine Phosphokinase 7428 U/L (39-308); NT Pro B Type Natriuretic Pept 37365 pg/mL (0-125)
[2025-03-07] MEDS: hydrocortisone 100 mg/2 mL SDV IVP ×2 (06:04→11:23)
[2025-03-07 06:54] LABS: Cortisol Random 21.09 ug/dL (2.47-19.5)
[2025-03-07 07:25] LABS: Glucose Point of Care 240 mg/dL (70-110)
[2025-03-07] MEDS: EPINEPHrine 2.5 MG in sodium chloride 0.9% 250 ML 60.6 MG IV ×2 (08:46→13:17)
[2025-03-07] MEDS: budesonide 0.5 mg/2 mL Neb INHALATION (08:52)
[2025-03-07] MEDS: ipratropium-albuterol 3 mL Neb INHALATION (08:52)
[2025-03-07] MEDS: DOBUTamine drip 500 MG/250 ML PREMIX 60.38 MG IV (09:13)
[2025-03-07] MEDS: insulin lispro 100 unit/1 mL SUBCUT ×2 (09:14→12:55)
[2025-03-07] MEDS: pantoprazole 40 mg SDV IVP (09:16)
[2025-03-07] MEDS: insulin glargine 100 units/1 mL 8 UNIT SUBCUT (10:45)
--- NOTE | 2025-03-07 11:02 | P.PN_ITS ---
Subjective 2 Subjective: on 4 pressors, on BIPAP 100 % Fio2 Medications: Reviewed: Yes Vitals/I&O/Wt Last Vital Signs Temp 99.2 F 03/07/25 07:32 Pulse 93 03/07/25 10:30 Resp 28 H 03/07/25 10:00 BP 84/55 03/07/25 10:00 Pulse Ox 94 03/07/25 10:30 O2 Del Method BiPAP 03/07/25 10:00 O2 Flow Rate 100 03/06/25 16:45 FiO2 100 03/07/25 10:30 03/06/25 03/07/25 03/07/25 22:59 06:59 14:59 Intake Total 1275.222 / 2758.895 4337.243 / 3671.528 1247.107 / 1247.107 Output Total Balance 1260.222 / 2879.276 0366.243 / 3656.528 1247.107 / 1247.107 Weight last 48 hrs Weight 114.623 kg Weight 115 kg Weight 114 kg Weight 115 kg Weight 136.078 kg Physical Exam 2 Narrative: Patient currently on BiPAP with 100% FiO2 Decreased breath sounds bilaterally per report S1-S2 regular rate and rhythm per report Abdomen soft nontender Has edema Urinary Catheter Management: Arredondo: Cath Placed During This Visit: yes Reason for Continuing Indwelling Catheter: Accurate Measurement of Urinary Output in Critically Ill Patients Urinary Catheter Date of Insertion: 03/06/25 Data 03/07/25 04:06 03/07/25 04:06 Micro: Microbiology 03/06/25 00:23 Blood Culture - Preliminary Blood NEGATIVE TO DATE 03/06/25 00:19 Blood Culture - Preliminary Blood NEGATIVE TO DATE A&P Assessment and plan (1) Anasarca: (2) Acute kidney injury superimposed on CKD: 1. Acute on chronic kidney disease stage III: Baseline creatinine seems to be in the mid 1 range patient now has JACIEL with a creatinine in the 3 range, remains anuric. Etiology likely cardiorenal with concern for possible sepsis as well given leukocytosis. - Currently on 4 pressors . - pt hemodynamically unstable and will not tolerate HD or CRRT at this time , discussed with family @ bedside 2. Known history of cardiomyopathy with ejection fraction 10 to 15% and diastolic dysfunction, 3. Metabolic acidosis: Mild, monitor 4. Hyponatremia: Likely hypervolemic, placed on fluid restriction 1000 mL/day, 5. History of CVA 6. History of chronic respiratory failure in the setting of COPD CHF and sleep apnea 7. Leukocytosis, on broad-spectrum antibiotics, source not known Overall poor prognosis. Patient evaluated using audiovisual cart. Time spent 40 minutes. PDMP PDMP Reviewed: Not Reviewed Attestations 2 Medical Necessity Statement*: per medicine Coding Level of Care Code Acute Code for [facility] Fwd Diagnoses Anasarca R60.1 Acute kidney injury superimposed on CKD N17.9; N18.9
--- NOTE | 2025-03-07 11:14 | PC.NURSE ---
Rounding with Dr Ronquillo: orders for Bicar 150mEq, and ABG . Also received order to decrease Dobutamine to 5 mcg/kg/min. Dobutamine decreased as ordered.
[2025-03-07] MEDS: sodium bicarbonate 8.4% 1 mEq/mL 50mL Syr 150 MEQ IVP (11:22)
[2025-03-07 11:44] LABS: ABG PCO2 52.2 mmHg (35-45); ABG PH Result 7.27 (7.35-7.45); Alveolar-Arterial Oxygen Gradi 60.6 mmHg (5-10); Arterial Blood Gas Hematocrit 29.5 % (42-52); Base Excess ABG -3.5 mmol/L (-2.0-2.0); Blood Gas Allen Test Pos; Blood Gas Operator Identificat GD; Blood Gas Sample Site Radial, left; Blood Gas Sample Type Arterial; Blood Gas Tidal Volume 0.51; Carboxyhemoglobin 0.8 %THgb (0.4-20.1); HCO3 ABG 23.7 mmol/L (22-26); HGB O2 Sat 97.9 % (95-100); Ionized Calcium Level - ABG 0.9 mmol/L (1.1-1.4); Oxygen Device BIPAP; Oxygen Saturation ABG > 99.1; PO2 FiO2 Ratio Arterial Blood 181; Potassium Level - ABG 4.7 mmol/L (3.5-5.0); Total Hemoglobin 9.6 g/dL (14-18)
[2025-03-07 11:45] LABS: Glucose Point of Care 171 mg/dL (70-110)
--- NOTE | 2025-03-07 12:31 | P.ANES_ITS ---
Anesthesia Procedures Procedure/Date: 03/07/25 Arterial Line: Time Out Performed: Yes Consent: requested by attending/covering physician, from other (family) and risks and benefits reviewed Size (Gauge): 20 Technique Used: guide wire technique Post- Procedure: dry sterile dressing placed Patient Tolerated Procedure: well Complications: none Site: left and radial Additional Comments: Arterial line requested by Dr. Parks Other Information: Diagnosis: Hemodynamic Instability
--- NOTE | 2025-03-07 13:37 | PC.NURSE ---
Dr Ronquillo called for update. Epi and vasopressin gtt maxed out. Levophed at 40mcg/min. Dobutamine at 5 mcg/kg/min. Albumin infusing. Art line pressure 55/38 and Cuff pressures 95/58. Orders to increase Dobutamine gtt to 10mcg/kg/min received and done.
[2025-03-07] MEDS: vasopressin 40 UNIT/100 ML PREMIX 15 UNIT IV (14:18)
--- NOTE | 2025-03-07 15:46 | P.PN_ITS ---
<Statement entered by Khalida Toth MD - 03/07/25 19:57> Patient was evaluated and cared for in conjunction with an advanced practice practitioner. I personally examined the patient and reviewed the chart and all pertinent data including imaging, telemetry, and laboratory results. I discussed the patient in detail with the advanced practice practitioner. Please see their note for complete H&P testing result and agreed upon plan of care for the patient. Patient remained hypotensive and in shock with mixed picture of septic and cardiogenic despite of multiple pressors including vasopressin dobutamine and Levophed GENERAL: Patient is disoriented/comatose HEART: Irregular S1 and S2. LUNGS: Decreased breath bilaterally. CENTRAL NERVOUS SYSTEM: Grossly nonfocal. EXTREMITIES: Lower extremities with 2+ edema bilaterally. Shock most likely mixed cardiogenic/septic Acute on chronic renal failure Severe cardiomyopathy with severely depressed left ventricular ejection fraction Morbid obesity History of CVA Despite of Multiple pressors patient remained hypotensive not a candidate for dialysis or CRRT as per nephrology Discussed with the patient and daughter initially they would like to keep him full code but later decided to go for hospice given his short and long-term poor prognosis Subjective 2 Subjective: Patient still in shock. He is not very responsive. He is on 4 pressors without much response. He is not producing any urine at this time. Vitals/I&O/Wt Last Vital Signs Temp 99.2 F 03/07/25 07:32 Pulse 90 03/07/25 14:45 Resp 26 H 03/07/25 14:45 BP 48/33 03/07/25 14:57 Pulse Ox 100 03/07/25 14:45 O2 Del Method BiPAP 03/07/25 14:45 O2 Flow Rate 100 03/06/25 16:45 FiO2 90 03/07/25 14:45 03/07/25 03/07/25 03/07/25 06:59 14:59 22:59 Intake Total 1855.243 / 3671.528 2323.648 / 2323.648 Balance 1855.243 / 3656.528 2323.648 / 2323.648 Weight last 48 hrs Weight 252 lb 11.2 oz Weight 253 lb 8.505 oz Weight 251 lb 5.231 oz Weight 253 lb 8.505 oz Weight 300 lb Physical Exam 2 Narrative: General: on BIPAP Muskuloskeletal: Full ROM Respiratory: on bipap, lower lobes diminished bilaterally Cardio: No JVD, regular rate, regular rhythm, S1 S2 normal, no murmurs, peripheral pulses 2+ radial and DP palpated bilaterally Extremities: Full ROM, normal, normal capillary refill, mottling to the bilateral distal digits, edema on dorsal aspect of hands and feet Neuro: obtunded Skin: No rashes or lesions noted, no wounds Urinary Catheter Management: Arredondo: Cath Placed During This Visit: yes Reason for Continuing Indwelling Catheter: Accurate Measurement of Urinary Output in Critically Ill Patients Urinary Catheter Date of Insertion: 03/06/25 Data 03/07/25 04:06 03/07/25 04:06 Micro: Microbiology 03/06/25 00:23 Blood Culture - Preliminary Blood NEGATIVE TO DATE 03/06/25 00:19 Blood Culture - Preliminary Blood NEGATIVE TO DATE A&P Assessment and plan (1) Sepsis: (2) Congestive heart failure: Qualifiers: Heart failure chronicity: acute on chronic Heart failure type: combined systolic and diastolic Qualified Code(s): I50.43 - Acute on chronic combined systolic (congestive) and diastolic (congestive) heart failure (3) Acute kidney injury superimposed on CKD: (4) Acute metabolic encephalopathy: (5) Cardiomyopathy: Plan Patient is currently in septic shock. His prognosis is very poor. He also has systolic heart failure. Discussion was made with family. Will continue current care at this time. PDMP PDMP Reviewed: Not Reviewed Attestations 2 Medical Necessity Statement*: Deferred to primary. Procedures Arterial Line Size (Gauge): 20 Coding Level of Care Code Acute Code for [facility] Diagnoses Sepsis A41.9 Acute on chronic combined systolic and diastolic congestive heart failure I50.43 Heart failure chronicity: acute on chronic Heart failure type: combined systolic and diastolic Acute kidney injury superimposed on CKD N17.9; N18.9 Acute metabolic encephalopathy G93.41 Cardiomyopathy I42.9
--- NOTE | 2025-03-07 15:53 | P.PN_ITS ---
Subjective 2 Subjective: Hospital course, labs appreciated. Patient seen today morning on multiple pressors. Overall he is on 4 pressors currently, vaso 0.1, Levophed of 20, dobutamine of 20, epi of 10. Mean arterial pressure mostly being maintained from 55-60. Patient is on AVAPS mode of BiPAP. Remains anuric. Family members at bedside. Has remained afebrile. Medications: Reviewed: Yes Vitals/I&O/Wt Last Vital Signs Temp 99.2 F 03/07/25 07:32 Pulse 90 03/07/25 14:45 Resp 26 H 03/07/25 14:45 BP 48/33 03/07/25 14:57 Pulse Ox 100 03/07/25 14:45 O2 Del Method BiPAP 03/07/25 14:45 O2 Flow Rate 100 03/06/25 16:45 FiO2 90 03/07/25 14:45 03/07/25 03/07/25 03/07/25 06:59 14:59 22:59 Intake Total 1855.243 / 3671.528 2323.648 / 2323.648 Balance 1855.243 / 3656.528 2323.648 / 2323.648 Weight last 48 hrs Weight 114.623 kg Weight 115 kg Weight 114 kg Weight 115 kg Weight 136.078 kg Physical Exam 2 Narrative: General: No acute distress, GCS: E1, M2, V1, currently on AVAPS BiPAP mode Head: Normocephalic. Atraumatic. Icteric sclera. Neck: JVD difficult to assess due to neck circumference. No nuchal rigidity appreciated. Cardiovascular: RRR. No gallops. Pansystolic murmur present at apex 2/6. 3-4+ pitting edema bilateral upper and lower extremities. Lungs: Breath sounds slightly diminished, no use of accessory muscles, no crackles or wheezes. On nasal cannula support. Skin: No jaundice. No rashes. Abdomen: Normal bowel sounds, abdomen soft and nontender. Extremity: Bilateral toes capillary refill increased, mild mottling present Urinary Catheter Management: Arredondo: Cath Placed During This Visit: yes Reason for Continuing Indwelling Catheter: Accurate Measurement of Urinary Output in Critically Ill Patients Urinary Catheter Date of Insertion: 03/06/25 Data 03/07/25 04:06 04/28/25 04:06 Micro: Microbiology 03/06/25 00:23 Blood Culture - Preliminary Blood NEGATIVE TO DATE 03/06/25 00:19 Blood Culture - Preliminary Blood NEGATIVE TO DATE A&P Assessment and plan (1) Shock: (2) Multiorgan failure: (3) Respiratory failure: (4) Acute kidney injury superimposed on CKD: (5) Transaminitis: (6) Congestive heart failure: Qualifiers: Heart failure chronicity: acute on chronic Heart failure type: combined systolic and diastolic Qualified Code(s): I50.43 - Acute on chronic combined systolic (congestive) and diastolic (congestive) heart failure (7) Metabolic acidemia: (8) Acute metabolic encephalopathy: (9) Hyperbilirubinemia: (10) COPD (chronic obstructive pulmonary disease): (11) CVA (cerebral vascular accident): Qualifiers: CVA mechanism: unspecified Qualified Code(s): I63.9 - Cerebral infarction, unspecified (12) Type 2 diabetes mellitus: Qualifiers: Diabetes mellitus complication status: with other specified complication Diabetes mellitus group home insulin use: without watermelon harvesting supervisor use Qualified Code(s): E11.69 - Type 2 diabetes mellitus with other specified complication (13) Hyponatremia: (14) Anasarca: Plan 64 year old male with a past medical history significant for 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 Reports despite poor oral intake, his lower extremities have continued to swell severely. Patient is being treated for mixed cardiogenic and septic shock with while being on multiple pressors. Currently using multiorgan failure with acute kidney injury, oliguria/anuria, transaminitis, respiratory failure being AVAPS dependent, metabolic encephalopathy with poor GCS. Shock: Currently on multiple pressors including max doses of vasopressin, epinephrine, Levophed, dobutamine. Maintain mean blood pressure over 65 as possible. Will request for a arterial line. Currently even after multiple pressors patient remains with significantly poor blood pressures. Follow-up cultures. So far negative. Continue with empiric meropenem and linezolid. Continue with high-dose steroids for now. Concern for cardiogenic shock. Has history of cardiomyopathy. Last known EF from earlier this admission showed 15%, global LV hypokinesia, grade 4 diastolic function, severely elevated LV pressures, moderate to severe MR. Currently patient cannot get diuretic therapy as he is on multiple pressors. Patient renal functions are getting worse and. Patient is overall 7 to 8 L positive. Is an uric. Unfortunately Impella is not possible given patient requiring multiple pressors as per cardiology recommendations. Appreciate nephrology and cardiology recommendations. Metabolic acidosis: Most likely in setting of respiratory failure and CKD. Check ABG. Bicarb push accordingly. Unfortunately cannot do drip as patient is already getting up to 300 cc of fluid per hour with pressors. Transaminitis Acute renal failure Acute metabolic encephalopathy History of infective endocarditis Type 2 diabetes mellitus History of CVA with residual right hemiparesis Dysphagia History of paroxysmal A-fib History of COPD Goals of care discussion: Had detailed goals of care discussion with patient's /DPOA, multiple other family members at bedside. We discussed unfortunately even after maximum medical possible therapy, multiple pressors patient mean artery pressure having maintained below 65. Discussed that he has developed and has worsening multiorgan failure with anuria, worsening renal dysfunction, worsening transaminitis with respiratory failure and metabolic encephalopathy. Discussed unfortunately even after maximal therapy patient is not improving and with mean artery pressure being maintained below 60 for most part of the time there is a high risk of mortality and not improving. Discussed options of continuing medical therapy versus possible transition to comfort measures. Discussed comfort measures would mean that we will discontinue the vasopressors, BiPAP and transition to oxygen nasal cannula for comfort. He will let nature takes its own course when making sure patient remains comfortable and eventually he would . Family verbalizes understanding and wants to go ahead with comfort care measures once whole family is at bedside. For now we will not go ahead with any escalation of care. Discussed CODE STATUS to be changed to DNR/DNI Family is at bedside will transition to comfort care measures. PDMP PDMP Reviewed: Not Reviewed Attestations 2 Medical Necessity Statement*: Requires further hospitalization while further goals of care discussions are done and the patient and severe shock on multiple pressors developing multiorgan failure. Critical Care Time: The high probability of a clinically significant, sudden or life threatening deterioration of the patient's cardiac, pulmonary, renal, GI, goals of care s ystem(s) required my full and direct attention, intervention and personal management. The critical care time is as shown. This time is in addition to time spent performing any reported procedures but includes the following: [x] Data and vital sign review and interpretation [x] Patient assessment, examination and intervention [x] Documentation [x] Medication orders and management Critical Care Time (min): 90 Procedures Arterial Line Size (Gauge): 20 Coding Level of Care Code Critical Care >/= 30 minutes Critical care time (in minutes): 90 The high probability of a clinically significant, sudden or life threatening deterioration, as referenced in this documentation, required my full and direct attention, intervention and personal management. The critical care time shown is in addition to time spent performing any reported separately billable procedures and includes the following: [x] Data and vital sign review and interpretation [x ] Patient assessment, examination and intervention [x] Medication orders and management [x] Patient/Family updates as able [x] Care Coordination and Documentation. Other Coding Information This patient has a high probability of clinically significant, sudden or life threatening deterioration of the patient's (neurological/pulmonary/cardiac/renal/ID/endocrine) systems required my full, direct attention, the highest level of physician preparedness for urgent intervention and personal management. I managed/supervised life or organ supporting interventions that required frequent physician assessment. I devoted my full attention in the ICU to the direct care of this patient for the period of time indicated above. Time I spent with family or surrogate(s) is included only if the patient was incapable of providing necessary information or participating in decision making. This time includes the following services provided: Telemetry review Hemodynamic interpretation, assessment and management Review and interpretation of CXR Review and interpretation of lab values Review and interpretation of microbiologic data and culture results Review of medications and administration Review and interpretation of Nutrition requirements and management Discussion of management with other consultants and services Clinical update to family members Diagnoses Shock R57.9 Multiorgan failure Respiratory failure J96.90 Acute kidney injury superimposed on CKD N17.9; N18.9 Transaminitis R74.01 Acute on chronic combined systolic and diastolic congestive heart failure I50.43 Heart failure chronicity: acute on chronic Heart failure type: combined systolic and diastolic Metabolic acidemia E87.20 Acute metabolic encephalopathy G93.41 Hyperbilirubinemia E80.6 Chronic obstructive pulmonary disease, unspecified COPD type J44.9 Cerebrovascular accident (CVA), unspecified mechanism I63.9 CVA mechanism: unspecified Type 2 diabetes mellitus E11.69 Diabetes mellitus complication status: with other specified complication Diabetes mellitus watermelon harvesting supervisor insulin use: without watermelon harvesting supervisor use Hyponatremia E87.1 Anasarca R60.1
--- NOTE | 2025-03-07 16:50 | PC.NURSE ---
1647: Pt . No heart sounds or breath sounds auscultated. Pacemaker still firing. Dr Ronquillo notified via telephone
--- NOTE | 2025-03-07 17:14 | PC.NURSE ---
As required by law [facility] notified.
--- NOTE | 2025-03-07 17:17 | PC.NURSE ---
[employer] returned call . [employer], Leigha stated they do not turn off devices. His is for tachy arrhythmias, so thu arrhythmias we just let it go
--- NOTE | 2025-03-07 22:57 | PC.NURSE ---
Adela Time : 2236 MTS notified Pt still MTS Hold
== END 2025-03-07 16:47 | disposition expired | DRG 871 ==
LOC: ER 19:31 → ICU 03-06 01:27
PROVIDERS: Internal Medicine; Admitting Provider Internal Medicine; Emergency Provider Emergency Medicine; PCP Nurse Practitioner Family; Visit Provider Student in an Organized Health Care Education/Training Program
DX: A41.9 Sepsis, unspecified organism (principal); G93.41 Metabolic encephalopathy; R65.21 Severe sepsis with septic shock; J96.90 Respiratory failure, unspecified, unspecified whether with hypoxia or hypercapnia; I50.43 Acute on chronic combined systolic (congestive) and diastolic (congestive) heart failure; N17.9 Acute kidney failure, unspecified; I13.0 Hypertensive heart and chronic kidney disease with heart failure and stage 1 through stage 4 chronic kidney disease, or unspecified chronic kidney disease; E87.20 Acidosis, unspecified; I69.951 Hemiplegia and hemiparesis following unspecified cerebrovascular disease affecting right dominant side; E87.1 Hypo-osmolality and hyponatremia; I42.8 Other cardiomyopathies; R57.0 Cardiogenic shock; N18.30 Chronic kidney disease, stage 3 unspecified; E11.22 Type 2 diabetes mellitus with diabetic chronic kidney disease; Z79.4 Long term (current) use of insulin; Z79.84 Long term (current) use of oral hypoglycemic drugs; R74.01 Elevation of levels of liver transaminase levels; J44.9 Chronic obstructive pulmonary disease, unspecified; F32.9 Major depressive disorder, single episode, unspecified; G25.81 Restless legs syndrome; G47.33 Obstructive sleep apnea (adult) (pediatric); Z51.5 Encounter for palliative care; R13.10 Dysphagia, unspecified; K21.9 Gastro-esophageal reflux disease without esophagitis; E78.2 Mixed hyperlipidemia; I25.10 Atherosclerotic heart disease of native coronary artery without angina pectoris; I95.9 Hypotension, unspecified; Z79.2 Long term (current) use of antibiotics; Z86.19 Personal history of other infectious and parasitic diseases; Z95.0 Presence of cardiac pacemaker; I25.2 Old myocardial infarction; Z79.01 Long term (current) use of anticoagulants
CPT/HCPCS: 36415; 36416; 36592; 36600; 51702; 71045; 74177; 76705; 80051; 80053; 80074; 81001; 82140; 82248; 82306; 82310; 82330; 82436; 82533; 82550; 82575; 82803; 82805; 82962; 82977; 83605; 83735; 83880; 83970; 84100; 84133; 84145; 84156; 84300; 84443; 85007; 85025; 85610; 85651; 85730; 86140; 87040; 87486; 87581; 87633; 93005; 93306; 94640; 94660; 96365; 96367; 96372; 96374; 96375; 96376; 99285; J0171; J1250; J1720; J1815; J1938; J1956; J2020; J2185; J2470; J2598; J7030; J7050; J7626; J9999; P9046; Q3014